=== PATIENT | male | born 1945 | race Caucasian/White ===

== ENCOUNTER → 2016-07-02 | Outpatient (CLI) | payer OTHER ==
[~2016-07-02] MED LIST: /ADVA50050; /AUGM875TA; /IPRA3SP; /MOXI40TA; /TIOT18INH; /WARF5TA OR; ACET-654 PO; ALBU17IN2; ALBU83IN INH; AMBI10TA OR; AMIT25TA PO; AMLO10TA; AMLO10TA OR; AMLO10TA2 PO; AMMO12LO TOP; ASPI1TAB24 PO; ATEN25TA; ATEN50TA2; ATEN50TA2 PO; ATOR40TA PO; ATROVENT0.02%; BABY81CH; BACL10TA2 PO; BUME2TAB OR; BUPR75TA5 PO; COMBAER6 INH; COUM2.5T11 PO; DILT180C7 OR; DILT300C2; DILT300C26 PO; DIOV160T5; DIOV160T5 OR; FEBU40TA PO; FINA5TAB2 PO; FLUO20CA8 PO; GABA600T PO; GEMF600T; GEMF600T OR; GLUC500T; GLUC850T OR; GLYB125TA PO; GUAIPOW; HYDR1TAB97 PO; KLOR8TAB OR; LIDO1OIN2 TOP; LISI40TA; LISI40TA OR; MELOPOW; MELOPOW OR; METF1000 PO; MSIR30TA PO; OMEP20CA3 PO; OMEP20TA7 OR; OXYB15TA PO; OXYC20TA2 PO; PLAV75TA2 OR; PRED10TA2; PRED20TA; PRED5TAB; RANI150T PO; REFR1DRO6 OU; SALS500T PO; SERT-141 PO; SERT50TA2; SERT50TA2 OR; SYMB16INH INH; TAMS0.4C2 PO; TEMA15CA2 PO; TRAM50TA2 PO; TRAZ50TA4 PO; TYLENOL #3; VALS1TAB46 PO; VICO5TAB; VICO5TAB OR; VITMTA PO; WARF10TA OR; WARF1TAB OR; ZOLO50TA; ZOLP10TA2 PO; [UNRECOGNIZED DRUG - OTHER]; [UNRECOGNIZED DRUG - OTHER]; [UNRECOGNIZED DRUG - OTHER] INH; [UNRECOGNIZED DRUG - OTHER] OU
[2016-07-02 10:19] LABS: INR 1.53
== END ==
LOC: M LAB 09:14
PROVIDERS: ATTEND Pain Medicine Interventional Pain Medicine
DX: M48.06 Spinal stenosis, lumbar region (principal); M51.27 Other intervertebral disc displacement, lumbosacral region; M51.26 Other intervertebral disc displacement, lumbar region; M50.221 Other cervical disc displacement at C4-C5 level; M50.222 Other cervical disc displacement at C5-C6 level; M50.223 Other cervical disc displacement at C6-C7 level; M54.12 Radiculopathy, cervical region; M54.16 Radiculopathy, lumbar region; M79.609 Pain in unspecified limb; M47.817 Spondylosis without myelopathy or radiculopathy, lumbosacral region; M96.1 Postlaminectomy syndrome, not elsewhere classified

== ENCOUNTER → 2016-07-04 | Outpatient (CLI) | payer OTHER ==
[2016-07-04 11:52] LABS: INR 1.48
== END ==
LOC: M LAB 10:56
PROVIDERS: ATTEND Pain Medicine Interventional Pain Medicine
DX: M48.06 Spinal stenosis, lumbar region (principal); M51.27 Other intervertebral disc displacement, lumbosacral region; M51.26 Other intervertebral disc displacement, lumbar region; M50.221 Other cervical disc displacement at C4-C5 level; M50.222 Other cervical disc displacement at C5-C6 level; M50.223 Other cervical disc displacement at C6-C7 level; M50.321 Other cervical disc degeneration at C4-C5 level; M50.322 Other cervical disc degeneration at C5-C6 level; M50.323 Other cervical disc degeneration at C6-C7 level; M54.12 Radiculopathy, cervical region; M54.16 Radiculopathy, lumbar region; M79.609 Pain in unspecified limb; M47.817 Spondylosis without myelopathy or radiculopathy, lumbosacral region; M96.1 Postlaminectomy syndrome, not elsewhere classified

== ENCOUNTER 2017-02-20 15:29 | Emergency (ER) | payer OTHER ==
[~2017-02-20] VITALS: Ht 172.7 cm; Wt 118.2 kg
[~2017-02-20 15:29] MED LIST changes: -ACET-654 PO; +ACET1TAB17 PO; +ASPI-161 PO; -ASPI1TAB24 PO; -ATOR40TA PO; +ATOR40TA75 PO; -COUM2.5T11 PO; +COUM2.5T17 PO; -DILT300C26 PO; +DILT300C46 PO; +HYDR-3713 PO; -HYDR1TAB97 PO; -METF1000 PO; +METF10004 PO; -SALS500T PO; -SERT-141 PO; +SERT50TA PO; +TRAZ50TA11 PO; -TRAZ50TA4 PO; +[UNRECOGNIZED DRUG - CODE] PO
[2017-02-20 16:29] LABS: ALBUMIN 1.8 GM/DL (3.2-5.2); ALBUMIN/GLOBULIN RATIO 0.49 (1.00-1.93); ALKALINE PHOSPHATASE 134 U/L (45-117); ALT/SGPT 20 U/L (12-78); ANION GAP 8 MEQ/L (8-16); AST/SGOT 25 U/L (15-37); BILIRUBIN,DIRECT < 0.1 MG/DL (0.0-0.2); BILIRUBIN,TOTAL 0.2 MG/DL (0.2-1.0); BLOOD UREA NITROGEN 30 MG/DL (7-18); CALCIUM LEVEL 7.8 MG/DL (8.8-10.2); CARBON DIOXIDE LEVEL 24 MEQ/L (21-32); CHLORIDE LEVEL 111 MEQ/L (98-107); CREATININE FOR GFR 1.37 MG/DL (0.70-1.30); FREE T4 0.84 NG/DL (0.76-1.46); GLOMERULAR FILTRATION RATE 54.5 (>42); GLUCOSE, FASTING 99 MG/DL (83-110); POTASSIUM SERUM 4.9 MEQ/L (3.5-5.1); SODIUM LEVEL 143 MEQ/L (136-145); TOTAL PROTEIN 5.5 GM/DL (6.4-8.2)
[2017-02-20 16:37] LABS: ABG BASE EXCESS -2.6 (-2.0-2.0); ABG HCO3 22.4 MEQ/L (22.0-26.0); ABG PARTIAL PRESSURE CO2 39.3 mmHg (35.0-45.0); ABG STANDARD HCO3 22.2 MEQ/L (22.0-26.0); ABG TOTAL CO2 23.6 MEQ/L (23.0-31.0); ABG pH (ARTERIAL) 7.374 UNITS (7.350-7.450)
[2017-02-20 16:46] LABS: ADD MANUAL DIFFER YES; MEAN CORPUSCULAR HEMOGLOBIN 30.4 pg (27.0-33.0); MEAN CORPUSCULAR HGB CONC 30.9 g/dl (32.0-36.5); MEAN CORPUSCULAR VOLUME 98.1 fl (80.0-96.0); PLATELET COUNT, AUTOMATED 407 k/mm3 (150-450); RED CELL DISTRIBUTION WIDTH 14.9 % (11.5-14.5); WHITE BLOOD COUNT 12.1 K/mm3 (4.0-10.0)
--- NOTE | 2017-02-20 16:49 | REP ---
Clinical: Chest pain. Technique: PA and lateral. Comparison: 12/27/2015. Findings: Stable cardiomegaly and diffuse chronic interstitial changes are again noted. Subtle superimposed atelectasis cannot be excluded. No focal consolidation, effusion, or pneumothorax. Skeletal structures demonstrate age-related osteopenia and degenerative changes. Impression: Chronic stable changes. Cannot exclude trace superimposed atelectasis. Signed by Kemar Mirza MD 02/20/2017 04:41 P
[2017-02-20 17:03] LABS: INR 2.08
--- NOTE | 2017-02-20 17:27 | REP ---
Clinical: Pain. Status post right knee replacement . Technique: Wong scale and color Doppler evaluation using linear high frequency transducer. Findings: Ultrasound examination of the right and left lower extremity deep venous structures from the common femoral vein to the popliteal vein demonstrates diffuse subcutaneous edema with normal compressibility, flow and wave patterns in response to respiration and augmentation. There is no evidence for deep venous thrombosis. Incidental note is made of right inguinal lymph nodes measuring up to 4 cm as well as 5.3 x 0.8 x 3.2 cm right Vines's cyst. Impression: No evidence for deep venous thrombosis. Diffuse bilateral subcutaneous edema. Prominent right groin lymph nodes. Right Vines's cyst. Signed by Kemar Mirza MD 02/20/2017 05:19 P
[2017-02-20 18:02] LABS: ANISOCYTOSIS 1+; EOSINOPHILS 4 % (0-5); HYPOCHROMASIA 1+; TOXIC VACUOLATION 1+
[2017-02-20] MEDS ORDERED: NORCO, ANEXSIA 5/325MG TABLET (HYDROcodone/ACETAMINOPHEN) PO ONE (19:00)
[2017-02-20 20:48] VITALS: BP 119/58
--- NOTE | 2017-02-21 09:48 | ECGEPIP ---
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 Isolated PVC. Low voltages with slow precordial R-wave progression; body habitus versus pulmonary disease. Rule out prior septal injury. Nonspecific ST/T-wave abnormalities. Atrial fibrillation, new from last tracing 05/15/14. Electronically Signed On 02-21-2017 9:48:06 EDT by Dimitris Vernon
== END 2017-02-20 20:59 | disposition short-term general hospital (02) ==
LOC: M ED 15:29
DX: R60.0 Localized edema (principal); L03.121 Acute lymphangitis of right axilla; M71.21 Synovial cyst of popliteal space [Baker], right knee; L76.82 Other postprocedural complications of skin and subcutaneous tissue; Z96.651 Presence of right artificial knee joint; R94.31 Abnormal electrocardiogram [ECG] [EKG]; Z79.82 Long term (current) use of aspirin; Z79.84 Long term (current) use of oral hypoglycemic drugs; Z79.899 Other long term (current) drug therapy; Z79.01 Long term (current) use of anticoagulants; Z88.5 Allergy status to narcotic agent; Z88.8 Allergy status to other drugs, medicaments and biological substances; I25.10 Atherosclerotic heart disease of native coronary artery without angina pectoris; I25.2 Old myocardial infarction; I48.91 Unspecified atrial fibrillation; N40.0 Benign prostatic hyperplasia without lower urinary tract symptoms; K21.9 Gastro-esophageal reflux disease without esophagitis; E11.9 Type 2 diabetes mellitus without complications; I10 Essential (primary) hypertension; I42.9 Cardiomyopathy, unspecified

== ENCOUNTER 2017-07-27 16:18 | Emergency (ER) | payer OTHER | END 2017-07-27 18:31 | disposition left against medical advice (07) | LOC: M ED 16:18 | DX: Z51.89 Encounter for other specified aftercare (principal); Z53.21 Procedure and treatment not carried out due to patient leaving prior to being seen by health care provider ==

== ENCOUNTER → 2017-10-19 | Outpatient (RCR) | payer OTHER | LOC: M PT 08:33 | DX: I89.0 Lymphedema, not elsewhere classified (principal) | CPT/HCPCS: 97530 ==

== ENCOUNTER 2017-11-03 05:49 | Inpatient (IN) | payer MEDICARE, OTHER ==
[2017-11-03] MEDS ORDERED: NITROGLYCERIN IN D5W 25MG/250ML (100MCG/ML) As Ordered (06:02)
[2017-11-03 06:13] LABS: BASO % 0.1 % (0.0-1.0); EOS # 0.2 10^3/uL (0.0-0.50); HEMATOCRIT 33.3 % (42.0-52.0); HEMOGLOBIN 11.1 g/dl (13.5-17.5); IMMATURE GRANULOCYTE % 0.7 % (0-3.0); LYMPH # 1.5 10^3/uL (1.5-4.5); LYMPH % 8.5 % (24.0-44.0); MEAN CORPUSCULAR HEMOGLOBIN 29.1 pg (27.0-33.0); MEAN CORPUSCULAR HGB CONC 33.3 g/dl (32.0-36.5); MEAN CORPUSCULAR VOLUME 87.2 fl (80.0-96.0); MONO # 1.3 10^3/uL (0.0-0.8); MONO % 7.6 % (0.0-5.0); NEUTROPHILS # 14.6 10^3/uL (1.8-7.7); NEUTROPHILS % 82.1 % (36.0-66.0); PLATELET COUNT, AUTOMATED 227 10^3/uL (150-450); RED BLOOD COUNT 3.82 10^6/uL (4.30-6.10); RED CELL DISTRIBUTION WIDTH 15.7 % (11.5-14.5); WHITE BLOOD COUNT 17.7 10^3/uL (4.0-10.0)
[2017-11-03] MEDS ORDERED: hydrALAZINE INJ 20 MG/ML VIAL As Ordered ×2 (06:14→06:46)
[2017-11-03] MEDS: FUROSEMIDE 100 MG/10 ML VIAL (J1940) IV (06:15)
[2017-11-03] MEDS: NITROGLYCERIN/D5W 100MCG/ML 25 MG in APPROPRIATE DILUENT 1 EA IV (06:15)
[2017-11-03] MEDS: hydrALAZINE INJ 20 MG/ML VIAL IV ×6 (06:20→23:51)
[2017-11-03 06:25] LABS: INR 2.98; PROTHROMBIN TIME 32.3 SECONDS (12.4-14.5)
[2017-11-03] MEDS: METOPROLOL 5 MG/5 ML VIAL IV ×2 (06:25→06:30)
[2017-11-03 06:26] LABS: PARTIAL THROMBOPLASTIN TIME 40.5 SECONDS (26.8-37.9)
[2017-11-03] MEDS ORDERED: METOPROLOL 5 MG/5 ML VIAL As Ordered (06:30)
[2017-11-03 06:40] LABS: ANION GAP 5 MEQ/L (8-16); BLOOD UREA NITROGEN 54 MG/DL (7-18); CALCIUM LEVEL 7.8 MG/DL (8.8-10.2); CARBON DIOXIDE LEVEL 34 MEQ/L (21-32); CHLORIDE LEVEL 108 MEQ/L (98-107); CK-MB VALUE MASS 3.7 NG/ML (<3.6); CPK CREATINE PHOSPHOKINASE 146 U/L (39-308); CREATININE FOR GFR 0.98 MG/DL (0.70-1.30); GLOMERULAR FILTRATION RATE > 60.0 (>42); GLUCOSE, FASTING 126 MG/DL (70-100); MB/CK RELATIVE INDEX 2.53 (< OR =4); POTASSIUM SERUM 3.5 MEQ/L (3.5-5.1); SODIUM LEVEL 147 MEQ/L (136-145); TROPONIN I 0.07 NG/ML (< 0.10)
[2017-11-03] MEDS: LORazepam 2 MG/ML VIAL (J2060) IV (07:14)
[2017-11-03] MEDS ORDERED: ISOVUE-370 76% 100ML VIAL (Q9967) As Ordered (07:35)
[2017-11-03 07:51] LABS: ALKALINE PHOSPHATASE 69 U/L (45-117); AST/SGOT 32 U/L (7-37); BILIRUBIN,TOTAL 0.7 MG/DL (0.2-1.0); NT-PRO BNP 18282 PG/ML (<125)
[2017-11-03 07:59] LABS: ABG BASE EXCESS 8.5 (-2.0-2.0); ABG HCO3 30.1 MEQ/L (22.0-26.0); ABG O2 SATURATION 98.4 % (95.0-99.0); ABG PARTIAL PRESSURE CO2 31.5 mmHg (35.0-45.0); ABG STANDARD HCO3 32.3 MEQ/L (22.0-26.0); ABG TOTAL CO2 31.1 MEQ/L (23.0-31.0); ABG pH (ARTERIAL) 7.598 UNITS (7.350-7.450)
[2017-11-03] MEDS ORDERED: MOXIFLOXACIN HCL 400 MG in APPROPRIATE DILUENT 1 EA IV (08:00)
[2017-11-03 08:04] LABS: ALT/SGPT 33 U/L (12-78); BILIRUBIN,DIRECT 0.2 MG/DL (0.0-0.2)
[2017-11-03 08:07] LABS: ALBUMIN/GLOBULIN RATIO 0.71 (1.00-1.93); TOTAL PROTEIN 4.8 GM/DL (6.4-8.2)
[2017-11-03] MEDS: cefTRIAXone SOD 1 GM in D5W MINI-BAG PLUS 50 ML IV (08:14)
[2017-11-03] MEDS ORDERED: MORPHINE 2 MG/ML 1ML SYRINGE (J2270) As Ordered (08:15)
[2017-11-03] MEDS: MORPHINE 2 MG/ML 1ML SYRINGE (J2270) IV (08:30)
[2017-11-03 08:31] LABS: LACTIC ACID SEPSIS PROTOCOL 1.5 MMOL/L (0.4-2.0)
[2017-11-03] MEDS: AZITHROMYCIN INJ 500 MG, VIAL MATE ADAPTER 1 EACH in D5W 250 ML IV (08:47)
[2017-11-03] MEDS ORDERED: GLUCAGON FOR INJ 1 MG VIAL (J1610) SC (09:30)
[2017-11-03] MEDS ORDERED: GLUCOSE 4 GM CHEW TABLET PO (09:30)
[2017-11-03] MEDS ORDERED: DEXTROSE 50% 50 ML SYRINGE IV (09:30)
[2017-11-03] MEDS ORDERED: IPRATROPIUM 0.5MG/ALBUTEROL 2.5MG INH SOL UD 3ML (DUONEB)(J7620) NEB (09:45)
[2017-11-03 09:49] LABS: APPEARANCE, URINE CLEAR (CLEAR); BACTERIA, URINE AUTO 1+ (NEGATIVE); BILIRUBIN, URINE AUTO NEGATIVE (NEGATIVE); BLOOD, URINE BLOOD 2+ (NEGATIVE); COLOR, URINE STRAW (YELLOW); GLUCOSE, URINE (UA) AUTO NEGATIVE (NEGATIVE); KETONE, URINE AUTO NEGATIVE (NEGATIVE); LEUKOCYTE ESTERASE, URINE AUTO NEGATIVE (NEGATIVE); MUCUS, URINE SMALL (NEGATIVE); NITRITE, URINE AUTO NEGATIVE (NEGATIVE); PROTEIN, URINE AUTO 3+ mg/dL (NEGATIVE); RBC, URINE AUTO 25 /HPF (0-3); SPECIFIC GRAVITY URINE AUTO 1.013 (1.002-1.035); SQUAMOUS EPITHELIAL CELL UR AU 0 /HPF (0-6); UROBILINOGEN, URINE AUTO 0.2 mg/dL (0.0-2.0); WBC, URINE AUTO 2 /HPF (0-3)
[2017-11-03 10:15] LABS: ERYTHROCYTE SEDIMENTATION RATE 46 mm/hr (0-20)
[2017-11-03 10:37] LABS: C REACTIVE PROTEIN QUANTITATIV 1.84 MG/DL (0.00-0.30); CHOLESTEROL LEVEL 255 MG/DL (<200); CPK CREATINE PHOSPHOKINASE 138 U/L (39-308); IRON (FE) 27 UG/DL (65-175); PERCENT SATURATION 11.2 % (19.7-50.0); TOTAL IRON BINDING CAPACITY 242 UG/DL (250-450); TRIGLYCERIDES LEVEL 281 MG/DL (<150); TROPONIN I 0.07 NG/ML (< 0.10)
[2017-11-03 10:38] LABS: CHOLESTEROL RISK RATIO 1.902 (<5); CK-MB VALUE MASS 3.4 NG/ML (<3.6); HDL CHOLESTEROL 134 MG/DL (>40); LDL CHOLESTEROL 64.8 MG/DL (<100); MB/CK RELATIVE INDEX 2.46 (< OR =4); NON-HDL-C 121 MG/DL
[2017-11-03 10:52] LABS: ESTIMATED AVERAGE GLUCOSE 140 MG/DL (60-110); HEMOGLOBIN A1c 6.5 %
[2017-11-03] MEDS: FUROSEMIDE 40 MG/4 ML VIAL (J1940) IV ×4 (11:21→23:49)
[2017-11-03] MEDS ORDERED: HumaLOG INSULIN (NovoLOG) PER UNIT SC (12:00)
[2017-11-03 12:03] LABS: BEDSIDE GLUCOSE 125 MG/DL (83-110)
[2017-11-03] MEDS: CYANOCOBALAMIN 500 MCG TAB PO ×2 (12:06→18:57)
[2017-11-03] MEDS: VALSARTAN 80 MG TAB (DIOVAN) PO (12:07)
[2017-11-03] MEDS: MORPHINE 4 MG/ML 1ML VIAL/SYRINGE (J2270) IV (12:41)
[2017-11-03 12:47] LABS: CK-MB VALUE MASS 2.9 NG/ML (<3.6); CPK CREATINE PHOSPHOKINASE 167 U/L (39-308); MB/CK RELATIVE INDEX 1.73 (< OR =4); TROPONIN I 0.08 NG/ML (< 0.10)
[2017-11-03] MEDS: POTASSIUM CHLORIDE 10 MEQ SR TABLET PO (13:50)
[2017-11-03] MEDS: HumaLOG INSULIN (NovoLOG) PER UNIT SC ×3 (13:51→20:47)
[2017-11-03] MEDS: oxyCODONE 5MG TAB PO (14:56)
[2017-11-03 17:43] LABS: BEDSIDE GLUCOSE 104 MG/DL (83-110)
[2017-11-03 18:31] LABS: ANION GAP 8 MEQ/L (8-16); BLOOD UREA NITROGEN 50 MG/DL (7-18); CALCIUM LEVEL 7.5 MG/DL (8.8-10.2); CARBON DIOXIDE LEVEL 31 MEQ/L (21-32); CHLORIDE LEVEL 103 MEQ/L (98-107); CPK CREATINE PHOSPHOKINASE 162 U/L (39-308); CREATININE FOR GFR 0.98 MG/DL (0.70-1.30); GLOMERULAR FILTRATION RATE > 60.0 (>42); GLUCOSE, FASTING 107 MG/DL (70-100); POTASSIUM SERUM 3.5 MEQ/L (3.5-5.1); SODIUM LEVEL 142 MEQ/L (136-145); TROPONIN I 0.08 NG/ML (< 0.10)
[2017-11-03 18:32] LABS: CK-MB VALUE MASS 2.9 NG/ML (<3.6); MB/CK RELATIVE INDEX 1.79 (< OR =4)
[2017-11-03] MEDS: WARFARIN SOD 2.5 MG TAB PO (18:57)
[2017-11-03 20:38] LABS: BEDSIDE GLUCOSE 112 MG/DL (83-110)
[2017-11-03] MEDS: MYCOPHENOLATE MOFETIL 250 MG CAP (J7517) PO (20:45)
[2017-11-03] MEDS: traZODone 50 MG TAB PO (20:45)
[2017-11-03] MEDS: oxyCODONE 10 MG CR TAB PO (20:46)
[2017-11-03] MEDS: OMEPRAZOLE 20 MG CAP PO (20:46)
[2017-11-03] MEDS: FAMOTIDINE 20 MG TAB PO (20:48)
[2017-11-04] MEDS: ALPRAZolam 0.5 MG TAB PO ×2 (00:02→11:33)
[2017-11-04] MEDS: oxyCODONE 5MG TAB PO ×4 (00:03→16:16)
[2017-11-04 00:51] LABS: CK-MB VALUE MASS 2.9 NG/ML (<3.6); CPK CREATINE PHOSPHOKINASE 135 U/L (39-308); MB/CK RELATIVE INDEX 2.14 (< OR =4); TROPONIN I 0.11 NG/ML (< 0.10)
[2017-11-04] MEDS: FUROSEMIDE 40 MG/4 ML VIAL (J1940) IV ×4 (02:00→17:33)
[2017-11-04] MEDS: hydrALAZINE INJ 20 MG/ML VIAL IV ×2 (02:37→06:25)
[2017-11-04 06:04] LABS: HEMATOCRIT 29.6 % (42.0-52.0); HEMOGLOBIN 9.9 g/dl (13.5-17.5); MEAN CORPUSCULAR HGB CONC 33.4 g/dl (32.0-36.5); MEAN CORPUSCULAR VOLUME 86.8 fl (80.0-96.0); PLATELET COUNT, AUTOMATED 203 10^3/uL (150-450); RED BLOOD COUNT 3.41 10^6/uL (4.30-6.10); RED CELL DISTRIBUTION WIDTH 15.8 % (11.5-14.5); WHITE BLOOD COUNT 12.5 10^3/uL (4.0-10.0)
[2017-11-04 06:14] LABS: PROTHROMBIN TIME 23.4 SECONDS (12.4-14.5)
[2017-11-04 06:33] LABS: ANION GAP 7 MEQ/L (8-16); BLOOD UREA NITROGEN 48 MG/DL (7-18); CALCIUM LEVEL 7.6 MG/DL (8.8-10.2); CARBON DIOXIDE LEVEL 30 MEQ/L (21-32); CHLORIDE LEVEL 104 MEQ/L (98-107); CREATININE FOR GFR 1.18 MG/DL (0.70-1.30); GLOMERULAR FILTRATION RATE > 60.0 (>42); GLUCOSE, FASTING 93 MG/DL (70-100); POTASSIUM SERUM 3.4 MEQ/L (3.5-5.1); SODIUM LEVEL 141 MEQ/L (136-145)
[2017-11-04] MEDS: POTASSIUM CHLORIDE 10 MEQ SR TABLET PO (06:50)
[2017-11-04 07:01] LABS: MAGNESIUM LEVEL 2.1 MG/DL (1.8-2.4)
[2017-11-04] MEDS: HumaLOG INSULIN (NovoLOG) PER UNIT SC ×4 (07:30→20:34)
[2017-11-04] MEDS: MYCOPHENOLATE MOFETIL 250 MG CAP (J7517) PO (08:11)
[2017-11-04] MEDS: oxyCODONE 10 MG CR TAB PO ×2 (08:12→20:28)
[2017-11-04] MEDS: OMEPRAZOLE 20 MG CAP PO ×2 (08:12→20:28)
[2017-11-04] MEDS: ASPIRIN 81 MG ENTERIC TAB PO (08:13)
[2017-11-04] MEDS: ATORVASTATIN 20 MG TAB PO (08:13)
[2017-11-04] MEDS: SPIRONOLACTONE 25 MG TAB PO (08:13)
[2017-11-04] MEDS: TAMSULOSIN 0.4 MG CAP PO (08:13)
[2017-11-04] MEDS: LACTOBACILLUS ACIDOPHILUS CAP (BACID) PO (08:13)
[2017-11-04] MEDS: VALSARTAN 80 MG TAB (DIOVAN) PO (08:14)
[2017-11-04] MEDS: CYANOCOBALAMIN 500 MCG TAB PO ×3 (08:14→17:34)
[2017-11-04] MEDS: FINASTERIDE 5 MG TAB PO (08:14)
[2017-11-04] MEDS: FEBUXOSTAT 40 MG TABLET (ULORIC) PO (08:14)
[2017-11-04] MEDS ORDERED: VALSARTAN 80 MG TAB (DIOVAN) PO (09:00)
[2017-11-04] MEDS ORDERED: LACTIC ACID 12% LOTION 225 GM BTL TOP (09:15)
[2017-11-04] MEDS ORDERED: zolPIDEM TARTRATE 5 MG TAB PO (09:15)
[2017-11-04] MEDS ORDERED: POLYVINYL ALCOHOL OPHTH SOLN 15 ML(LIQUITEARS) OU (09:15)
[2017-11-04] MEDS ORDERED: PILL CRUSHER/CUTTER 1 EACH XX (09:30)
[2017-11-04] MEDS ORDERED: cefTRIAXone SOD 2 GM in D5W MINI-BAG PLUS 50 ML IV (10:00)
[2017-11-04] MEDS ORDERED: AZITHROMYCIN INJ 500 MG, VIAL MATE ADAPTER 1 EACH in D5W 250 ML IV (10:00)
[2017-11-04] MEDS: GABAPENTIN 300 MG CAP PO ×3 (10:14→20:27)
[2017-11-04] MEDS: MULTIVITAMINS/MINERALS THERAP 1 TAB PO ×2 (10:14→20:27)
[2017-11-04] MEDS: VANCOMYCIN HCL 1,000 MG, VIAL MATE ADAPTER 1 EACH in D5W 250 ML IV ×3 (10:15→21:30)
[2017-11-04] MEDS: FLUoxetine 20 MG CAP PO (11:20)
[2017-11-04 12:17] LABS: BEDSIDE GLUCOSE 151 MG/DL (83-110)
[2017-11-04] MEDS: WARFARIN SOD 4 MG TAB PO (16:16)
[2017-11-04 17:33] LABS: BEDSIDE GLUCOSE 128 MG/DL (83-110)
[2017-11-04 18:41] LABS: ANION GAP 7 MEQ/L (8-16); BLOOD UREA NITROGEN 61 MG/DL (7-18); CALCIUM LEVEL 7.3 MG/DL (8.8-10.2); CARBON DIOXIDE LEVEL 32 MEQ/L (21-32); CHLORIDE LEVEL 103 MEQ/L (98-107); GLOMERULAR FILTRATION RATE 37.4 (>42); GLUCOSE, FASTING 104 MG/DL (70-100); POTASSIUM SERUM 3.5 MEQ/L (3.5-5.1); SODIUM LEVEL 142 MEQ/L (136-145)
[2017-11-04] MEDS: traZODone 50 MG TAB PO (20:27)
[2017-11-04] MEDS: FAMOTIDINE 20 MG TAB PO (20:28)
[2017-11-04 20:52] LABS: BEDSIDE GLUCOSE 128 MG/DL (83-110)
[2017-11-05] MEDS: FUROSEMIDE 40 MG/4 ML VIAL (J1940) IV ×3 (05:43→08:01)
[2017-11-05] MEDS: SLF 3 ML SYR IV ×3 (05:46→20:52)
[2017-11-05 05:56] LABS: HEMATOCRIT 27.9 % (42.0-52.0); HEMOGLOBIN 8.9 g/dl (13.5-17.5); MEAN CORPUSCULAR HEMOGLOBIN 28.4 pg (27.0-33.0); MEAN CORPUSCULAR HGB CONC 31.9 g/dl (32.0-36.5); MEAN CORPUSCULAR VOLUME 89.1 fl (80.0-96.0); PLATELET COUNT, AUTOMATED 153 10^3/uL (150-450); RED BLOOD COUNT 3.13 10^6/uL (4.30-6.10); RED CELL DISTRIBUTION WIDTH 16.3 % (11.5-14.5)
[2017-11-05 06:08] LABS: INR 2.24; PROTHROMBIN TIME 25.6 SECONDS (12.4-14.5)
[2017-11-05 06:15] LABS: ANION GAP 5 MEQ/L (8-16); BLOOD UREA NITROGEN 66 MG/DL (7-18); CARBON DIOXIDE LEVEL 33 MEQ/L (21-32); CHLORIDE LEVEL 103 MEQ/L (98-107); CREATININE FOR GFR 2.21 MG/DL (0.70-1.30); GLOMERULAR FILTRATION RATE 31.4 (>42); GLUCOSE, FASTING 113 MG/DL (70-100); POTASSIUM SERUM 3.4 MEQ/L (3.5-5.1); SODIUM LEVEL 141 MEQ/L (136-145)
[2017-11-05] MEDS: HumaLOG INSULIN (NovoLOG) PER UNIT SC ×4 (07:30→20:46)
[2017-11-05] MEDS: SPIRONOLACTONE 25 MG TAB PO (07:57)
[2017-11-05] MEDS: OMEPRAZOLE 20 MG CAP PO ×2 (08:19→20:50)
[2017-11-05] MEDS: ATORVASTATIN 20 MG TAB PO (08:19)
[2017-11-05] MEDS: LACTOBACILLUS ACIDOPHILUS CAP (BACID) PO (08:20)
[2017-11-05] MEDS: CYANOCOBALAMIN 500 MCG TAB PO ×3 (08:20→17:30)
[2017-11-05] MEDS: TAMSULOSIN 0.4 MG CAP PO (08:20)
[2017-11-05] MEDS: FEBUXOSTAT 40 MG TABLET (ULORIC) PO (08:20)
[2017-11-05] MEDS: ASPIRIN 81 MG ENTERIC TAB PO (08:20)
[2017-11-05] MEDS: FLUoxetine 20 MG CAP PO (08:20)
[2017-11-05] MEDS: GABAPENTIN 300 MG CAP PO ×3 (08:20→20:51)
[2017-11-05] MEDS: FINASTERIDE 5 MG TAB PO (08:20)
[2017-11-05] MEDS: MULTIVITAMINS/MINERALS THERAP 1 TAB PO ×2 (08:20→20:51)
[2017-11-05] MEDS: oxyCODONE 10 MG CR TAB PO ×2 (08:21→20:51)
[2017-11-05] MEDS: POTASSIUM CHLORIDE 10 MEQ SR TABLET PO ×3 (10:33→17:29)
[2017-11-05] MEDS: oxyCODONE 5MG TAB PO ×2 (10:33→15:10)
[2017-11-05] MEDS: ALPRAZolam 0.5 MG TAB PO (10:33)
[2017-11-05] MEDS: VANCOMYCIN HCL 1,000 MG, VIAL MATE ADAPTER 1 EACH in D5W 250 ML IV (13:49)
[2017-11-05] MEDS: WARFARIN SOD 4 MG TAB PO (17:30)
[2017-11-05 18:49] LABS: ANION GAP 6 MEQ/L (8-16); BLOOD UREA NITROGEN 67 MG/DL (7-18); CALCIUM LEVEL 6.8 MG/DL (8.8-10.2); CARBON DIOXIDE LEVEL 31 MEQ/L (21-32); CHLORIDE LEVEL 99 MEQ/L (98-107); CREATININE FOR GFR 2.16 MG/DL (0.70-1.30); GLOMERULAR FILTRATION RATE 32.2 (>42); GLUCOSE, FASTING 97 MG/DL (70-100); POTASSIUM SERUM 4.2 MEQ/L (3.5-5.1); SODIUM LEVEL 136 MEQ/L (136-145)
[2017-11-05] MEDS: FAMOTIDINE 20 MG TAB PO (20:51)
[2017-11-05] MEDS: traZODone 50 MG TAB PO (20:51)
[2017-11-06] MEDS: oxyCODONE 5MG TAB PO ×3 (00:48→18:11)
[2017-11-06] MEDS: SLF 3 ML SYR IV ×3 (05:29→20:53)
[2017-11-06 06:12] LABS: ANION GAP 8 MEQ/L (8-16); BLOOD UREA NITROGEN 69 MG/DL (7-18); CALCIUM LEVEL 7.1 MG/DL (8.8-10.2); CARBON DIOXIDE LEVEL 26 MEQ/L (21-32); CHLORIDE LEVEL 100 MEQ/L (98-107); CREATININE FOR GFR 2.44 MG/DL (0.70-1.30); GLUCOSE, FASTING 97 MG/DL (70-100); POTASSIUM SERUM 4.5 MEQ/L (3.5-5.1); SODIUM LEVEL 134 MEQ/L (136-145)
[2017-11-06] MEDS: HumaLOG INSULIN (NovoLOG) PER UNIT SC ×4 (06:44→20:57)
[2017-11-06 07:37] LABS: HEMATOCRIT 26.9 % (42.0-52.0); HEMOGLOBIN 8.9 g/dl (13.5-17.5); MEAN CORPUSCULAR HEMOGLOBIN 29.9 pg (27.0-33.0); MEAN CORPUSCULAR HGB CONC 33.1 g/dl (32.0-36.5); MEAN CORPUSCULAR VOLUME 90.3 fl (80.0-96.0); PLATELET COUNT, AUTOMATED 127 10^3/uL (150-450); RED BLOOD COUNT 2.98 10^6/uL (4.30-6.10); RED CELL DISTRIBUTION WIDTH 15.9 % (11.5-14.5); WHITE BLOOD COUNT 8.2 10^3/uL (4.0-10.0)
[2017-11-06 07:57] LABS: POS COUNT POS FLAG
[2017-11-06] MEDS: MULTIVITAMINS/MINERALS THERAP 1 TAB PO ×2 (08:45→20:52)
[2017-11-06] MEDS: CYANOCOBALAMIN 500 MCG TAB PO ×3 (08:45→18:10)
[2017-11-06] MEDS: ATORVASTATIN 20 MG TAB PO (08:45)
[2017-11-06] MEDS: LACTOBACILLUS ACIDOPHILUS CAP (BACID) PO (08:45)
[2017-11-06] MEDS: FLUoxetine 20 MG CAP PO (08:45)
[2017-11-06] MEDS: GABAPENTIN 300 MG CAP PO ×3 (08:45→20:52)
[2017-11-06] MEDS: oxyCODONE 10 MG CR TAB PO ×2 (08:46→20:52)
[2017-11-06] MEDS: VANCOMYCIN ORAL SOL 250MG/5ML ORAL SYRINGE PO ×3 (08:46→18:11)
[2017-11-06] MEDS: OMEPRAZOLE 20 MG CAP PO ×2 (08:46→20:52)
[2017-11-06] MEDS: FINASTERIDE 5 MG TAB PO (08:46)
[2017-11-06] MEDS: TAMSULOSIN 0.4 MG CAP PO (08:46)
[2017-11-06] MEDS: ASPIRIN 81 MG ENTERIC TAB PO (08:46)
[2017-11-06] MEDS: FEBUXOSTAT 40 MG TABLET (ULORIC) PO (08:46)
[2017-11-06 12:12] LABS: INR 2.11; PROTHROMBIN TIME 24.4 SECONDS (12.4-14.5)
[2017-11-06] MEDS: WARFARIN SOD 4 MG TAB PO (16:49)
[2017-11-06 18:38] LABS: ANION GAP 7 MEQ/L (8-16); BLOOD UREA NITROGEN 73 MG/DL (7-18); CALCIUM LEVEL 7.3 MG/DL (8.8-10.2); CARBON DIOXIDE LEVEL 30 MEQ/L (21-32); CHLORIDE LEVEL 98 MEQ/L (98-107); GLUCOSE, FASTING 118 MG/DL (70-100); POTASSIUM SERUM 4.4 MEQ/L (3.5-5.1); SODIUM LEVEL 135 MEQ/L (136-145)
[2017-11-06] MEDS: FAMOTIDINE 20 MG TAB PO (20:52)
[2017-11-06] MEDS: traZODone 50 MG TAB PO (20:54)
[2017-11-06 21:34] LABS: BEDSIDE GLUCOSE 115 MG/DL (83-110)
[2017-11-06 21:34] LABS: BEDSIDE GLUCOSE 100 MG/DL (83-110)
[2017-11-06 21:34] LABS: BEDSIDE GLUCOSE 137 MG/DL (83-110)
[2017-11-06 21:34] LABS: BEDSIDE GLUCOSE 113 MG/DL (83-110)
[2017-11-07] MEDS: VANCOMYCIN ORAL SOL 250MG/5ML ORAL SYRINGE PO ×2 (00:26→05:00)
[2017-11-07] MEDS: oxyCODONE 5MG TAB PO ×4 (00:28→16:16)
[2017-11-07 04:04] LABS: HEMATOCRIT 26.9 % (42.0-52.0); HEMOGLOBIN 8.4 g/dl (13.5-17.5); MEAN CORPUSCULAR HEMOGLOBIN 28.7 pg (27.0-33.0); MEAN CORPUSCULAR HGB CONC 31.2 g/dl (32.0-36.5); MEAN CORPUSCULAR VOLUME 91.8 fl (80.0-96.0); PLATELET COUNT, AUTOMATED 143 10^3/uL (150-450); RED BLOOD COUNT 2.93 10^6/uL (4.30-6.10); RED CELL DISTRIBUTION WIDTH 15.4 % (11.5-14.5); WHITE BLOOD COUNT 7.4 10^3/uL (4.0-10.0)
[2017-11-07 04:22] LABS: ALBUMIN 1.8 GM/DL (3.2-5.2); ANION GAP 6 MEQ/L (8-16); BLOOD UREA NITROGEN 75 MG/DL (7-18); CALCIUM LEVEL 7.4 MG/DL (8.8-10.2); CARBON DIOXIDE LEVEL 31 MEQ/L (21-32); CHLORIDE LEVEL 98 MEQ/L (98-107); CREATININE FOR GFR 2.17 MG/DL (0.70-1.30); GLOMERULAR FILTRATION RATE 32.1 (>42); GLUCOSE, FASTING 106 MG/DL (70-100); INR 1.88; POTASSIUM SERUM 4.1 MEQ/L (3.5-5.1); PROTHROMBIN TIME 22.2 SECONDS (12.4-14.5); SODIUM LEVEL 135 MEQ/L (136-145)
[2017-11-07] MEDS: SLF 3 ML SYR IV ×3 (05:00→20:55)
[2017-11-07] MEDS: LACTOBACILLUS ACIDOPHILUS CAP (BACID) PO (08:55)
[2017-11-07] MEDS: FEBUXOSTAT 40 MG TABLET (ULORIC) PO (08:55)
[2017-11-07] MEDS: FLUoxetine 20 MG CAP PO (08:55)
[2017-11-07] MEDS: ASPIRIN 81 MG ENTERIC TAB PO (08:56)
[2017-11-07] MEDS: oxyCODONE 10 MG CR TAB PO ×2 (08:56→20:48)
[2017-11-07] MEDS: CYANOCOBALAMIN 500 MCG TAB PO ×3 (08:56→17:58)
[2017-11-07] MEDS: MULTIVITAMINS/MINERALS THERAP 1 TAB PO ×2 (08:57→20:45)
[2017-11-07] MEDS: ATORVASTATIN 20 MG TAB PO (08:57)
[2017-11-07] MEDS: FINASTERIDE 5 MG TAB PO (08:57)
[2017-11-07] MEDS: GABAPENTIN 300 MG CAP PO ×3 (08:57→20:46)
[2017-11-07] MEDS: TAMSULOSIN 0.4 MG CAP PO (08:57)
[2017-11-07] MEDS: OMEPRAZOLE 20 MG CAP PO ×2 (08:57→20:46)
[2017-11-07] MEDS: HumaLOG INSULIN (NovoLOG) PER UNIT SC ×4 (08:58→20:54)
[2017-11-07 11:46] LABS: BEDSIDE GLUCOSE 109 MG/DL (83-110)
[2017-11-07] MEDS: FUROSEMIDE 40 MG/4 ML VIAL (J1940) IV (13:55)
[2017-11-07] MEDS: WARFARIN SOD 4 MG TAB PO (16:14)
[2017-11-07 17:34] LABS: BEDSIDE GLUCOSE 124 MG/DL (83-110)
[2017-11-07 19:29] LABS: ANION GAP 7 MEQ/L (8-16); BLOOD UREA NITROGEN 71 MG/DL (7-18); CARBON DIOXIDE LEVEL 30 MEQ/L (21-32); CHLORIDE LEVEL 99 MEQ/L (98-107); CREATININE FOR GFR 1.94 MG/DL (0.70-1.30); GLOMERULAR FILTRATION RATE 36.5 (>42); GLUCOSE, FASTING 124 MG/DL (70-100); POTASSIUM SERUM 4.5 MEQ/L (3.5-5.1); SODIUM LEVEL 136 MEQ/L (136-145)
[2017-11-07 20:09] LABS: BEDSIDE GLUCOSE 121 MG/DL (83-110)
[2017-11-07] MEDS: FAMOTIDINE 20 MG TAB PO (20:45)
[2017-11-07] MEDS: traZODone 50 MG TAB PO (20:46)
[2017-11-07 21:31] LABS: MAGNESIUM LEVEL 2.6 MG/DL (1.8-2.4)
[2017-11-07 22:06] LABS: CK-MB VALUE MASS 2.3 NG/ML (<3.6); CPK CREATINE PHOSPHOKINASE 110 U/L (39-308); MB/CK RELATIVE INDEX 2.09 (< OR =4); TROPONIN I 0.03 NG/ML (< 0.10)
[2017-11-08] MEDS: oxyCODONE 5MG TAB PO ×3 (01:38→17:08)
[2017-11-08 04:39] LABS: HEMATOCRIT 23.6 % (42.0-52.0); HEMOGLOBIN 7.4 g/dl (13.5-17.5); MEAN CORPUSCULAR HEMOGLOBIN 28.5 pg (27.0-33.0); MEAN CORPUSCULAR HGB CONC 31.4 g/dl (32.0-36.5); MEAN CORPUSCULAR VOLUME 90.8 fl (80.0-96.0); PLATELET COUNT, AUTOMATED 127 10^3/uL (150-450); WHITE BLOOD COUNT 6.4 10^3/uL (4.0-10.0)
[2017-11-08 05:00] LABS: ANION GAP 6 MEQ/L (8-16); BLOOD UREA NITROGEN 70 MG/DL (7-18); CALCIUM LEVEL 7.2 MG/DL (8.8-10.2); CARBON DIOXIDE LEVEL 30 MEQ/L (21-32); CHLORIDE LEVEL 101 MEQ/L (98-107); CREATININE FOR GFR 1.88 MG/DL (0.70-1.30); GLOMERULAR FILTRATION RATE 37.8 (>42); GLUCOSE, FASTING 125 MG/DL (70-100); POTASSIUM SERUM 4.1 MEQ/L (3.5-5.1); SODIUM LEVEL 137 MEQ/L (136-145)
[2017-11-08 05:02] LABS: CK-MB VALUE MASS 2.2 NG/ML (<3.6); CPK CREATINE PHOSPHOKINASE 83 U/L (39-308); MB/CK RELATIVE INDEX 2.65 (< OR =4); TROPONIN I 0.02 NG/ML (< 0.10)
[2017-11-08 05:06] LABS: INR 1.82; PROTHROMBIN TIME 21.6 SECONDS (12.4-14.5)
[2017-11-08] MEDS: SLF 3 ML SYR IV ×3 (06:06→21:07)
[2017-11-08 06:42] LABS: FERRITIN 216 NG/ML (26-388); IRON (FE) 30 UG/DL (65-175); PERCENT SATURATION 7.5 % (19.7-50.0); TOTAL IRON BINDING CAPACITY 399 UG/DL (250-450)
[2017-11-08 06:47] LABS: RETIC HEMOGLOBIN EQUIVALENT 31.5 pg (24-36); RETICULOCYTE % 1.3 % (0.5-1.5)
[2017-11-08 06:58] LABS: REASON FOR REVIEW ANEMIA / RBC MORPH; SLIDE REVIEW Report; SOURCE PERIPHERAL SMEAR
[2017-11-08 07:18] LABS: HEMATOCRIT 25.7 % (42.0-52.0); HEMOGLOBIN 8.2 g/dl (13.5-17.5)
[2017-11-08] MEDS: LACTOBACILLUS ACIDOPHILUS CAP (BACID) PO (08:42)
[2017-11-08] MEDS: ATORVASTATIN 20 MG TAB PO (08:42)
[2017-11-08] MEDS: FINASTERIDE 5 MG TAB PO (08:42)
[2017-11-08] MEDS: OMEPRAZOLE 20 MG CAP PO ×2 (08:42→20:56)
[2017-11-08] MEDS: FEBUXOSTAT 40 MG TABLET (ULORIC) PO (08:42)
[2017-11-08] MEDS: MULTIVITAMINS/MINERALS THERAP 1 TAB PO ×2 (08:42→20:56)
[2017-11-08] MEDS: TAMSULOSIN 0.4 MG CAP PO (08:42)
[2017-11-08] MEDS: GABAPENTIN 300 MG CAP PO ×2 (08:42→20:56)
[2017-11-08] MEDS: CYANOCOBALAMIN 500 MCG TAB PO ×3 (08:43→17:07)
[2017-11-08] MEDS: oxyCODONE 10 MG CR TAB PO ×2 (08:43→21:07)
[2017-11-08] MEDS: ASPIRIN 81 MG ENTERIC TAB PO (08:43)
[2017-11-08] MEDS: FLUoxetine 20 MG CAP PO (08:43)
[2017-11-08] MEDS: HumaLOG INSULIN (NovoLOG) PER UNIT SC ×4 (08:46→20:11)
[2017-11-08 12:03] LABS: BEDSIDE GLUCOSE 106 MG/DL (83-110)
[2017-11-08] MEDS: FUROSEMIDE 40 MG/4 ML VIAL (J1940) IV ×2 (12:50→20:57)
[2017-11-08 16:52] LABS: BEDSIDE GLUCOSE 114 MG/DL (83-110)
[2017-11-08] MEDS: WARFARIN SOD 4 MG TAB PO (17:07)
[2017-11-08] MEDS: FERROUS GLUCONATE 324 MG TAB PO (17:08)
[2017-11-08] MEDS: FAMOTIDINE 20 MG TAB PO (20:56)
[2017-11-08] MEDS: traZODone 50 MG TAB PO (20:56)
[2017-11-08 23:22] LABS: BEDSIDE GLUCOSE 103 MG/DL (83-110)
[2017-11-09] MEDS: FUROSEMIDE 40 MG/4 ML VIAL (J1940) IV ×4 (06:00→23:15)
[2017-11-09] MEDS: SLF 3 ML SYR IV ×3 (06:01→21:20)
[2017-11-09 06:17] LABS: ANION GAP 5 MEQ/L (8-16); BLOOD UREA NITROGEN 70 MG/DL (7-18); CALCIUM LEVEL 7.9 MG/DL (8.8-10.2); CARBON DIOXIDE LEVEL 32 MEQ/L (21-32); CHLORIDE LEVEL 101 MEQ/L (98-107); CREATININE FOR GFR 1.71 MG/DL (0.70-1.30); GLOMERULAR FILTRATION RATE 42.2 (>42); GLUCOSE, FASTING 97 MG/DL (70-100); MAGNESIUM LEVEL 2.6 MG/DL (1.8-2.4); POTASSIUM SERUM 4.4 MEQ/L (3.5-5.1); SODIUM LEVEL 138 MEQ/L (136-145)
[2017-11-09 07:05] LABS: BEDSIDE GLUCOSE 118 MG/DL (83-110)
[2017-11-09] MEDS: HumaLOG INSULIN (NovoLOG) PER UNIT SC ×4 (07:26→20:02)
[2017-11-09] MEDS: LACTOBACILLUS ACIDOPHILUS CAP (BACID) PO (07:35)
[2017-11-09] MEDS: FLUoxetine 20 MG CAP PO (07:35)
[2017-11-09] MEDS: ASPIRIN 81 MG ENTERIC TAB PO (07:36)
[2017-11-09] MEDS: MULTIVITAMINS/MINERALS THERAP 1 TAB PO ×2 (07:36→21:19)
[2017-11-09] MEDS: ATORVASTATIN 20 MG TAB PO (07:36)
[2017-11-09] MEDS: FINASTERIDE 5 MG TAB PO (07:36)
[2017-11-09] MEDS: FERROUS GLUCONATE 324 MG TAB PO (07:36)
[2017-11-09] MEDS: CYANOCOBALAMIN 500 MCG TAB PO ×3 (07:36→17:12)
[2017-11-09] MEDS: OMEPRAZOLE 20 MG CAP PO ×2 (07:37→21:19)
[2017-11-09] MEDS: TAMSULOSIN 0.4 MG CAP PO (07:37)
[2017-11-09] MEDS: GABAPENTIN 300 MG CAP PO ×2 (07:37→21:19)
[2017-11-09] MEDS: FEBUXOSTAT 40 MG TABLET (ULORIC) PO (07:37)
[2017-11-09] MEDS: oxyCODONE 10 MG CR TAB PO ×2 (07:38→21:20)
[2017-11-09 09:07] LABS: HEMATOCRIT 25.2 % (42.0-52.0); MEAN CORPUSCULAR HEMOGLOBIN 29.2 pg (27.0-33.0); MEAN CORPUSCULAR HGB CONC 31.7 g/dl (32.0-36.5); PLATELET COUNT, AUTOMATED 189 10^3/uL (150-450); RED BLOOD COUNT 2.74 10^6/uL (4.30-6.10); RED CELL DISTRIBUTION WIDTH 14.9 % (11.5-14.5); WHITE BLOOD COUNT 6.9 10^3/uL (4.0-10.0)
[2017-11-09 12:40] LABS: BEDSIDE GLUCOSE 125 MG/DL (83-110)
[2017-11-09] MEDS: AcetaZOLAMIDE 500MG INJECTION (J1120) IV ×2 (12:46→14:25)
[2017-11-09] MEDS: oxyCODONE 5MG TAB PO ×2 (12:46→17:13)
[2017-11-09 16:38] LABS: BEDSIDE GLUCOSE 164 MG/DL (83-110)
[2017-11-09] MEDS: WARFARIN SOD 4 MG TAB PO (17:13)
[2017-11-09 20:12] LABS: BEDSIDE GLUCOSE 115 MG/DL (83-110)
[2017-11-09] MEDS: traZODone 50 MG TAB PO (21:19)
[2017-11-09] MEDS: FAMOTIDINE 20 MG TAB PO (21:19)
[2017-11-10] MEDS: oxyCODONE 5MG TAB PO ×4 (01:46→19:14)
[2017-11-10] MEDS: SLF 3 ML SYR IV ×3 (05:25→21:14)
[2017-11-10] MEDS: FUROSEMIDE 40 MG/4 ML VIAL (J1940) IV (05:25)
[2017-11-10 06:27] LABS: HEMATOCRIT 25.1 % (42.0-52.0); MEAN CORPUSCULAR HGB CONC 31.9 g/dl (32.0-36.5); MEAN CORPUSCULAR VOLUME 90.9 fl (80.0-96.0); PLATELET COUNT, AUTOMATED 218 10^3/uL (150-450); RED BLOOD COUNT 2.76 10^6/uL (4.30-6.10); RED CELL DISTRIBUTION WIDTH 14.8 % (11.5-14.5); WHITE BLOOD COUNT 5.8 10^3/uL (4.0-10.0)
[2017-11-10 06:27] LABS: BEDSIDE GLUCOSE 131 MG/DL (83-110)
[2017-11-10 06:37] LABS: ANION GAP 6 MEQ/L (8-16); BLOOD UREA NITROGEN 75 MG/DL (7-18); CALCIUM LEVEL 7.8 MG/DL (8.8-10.2); CARBON DIOXIDE LEVEL 31 MEQ/L (21-32); CHLORIDE LEVEL 100 MEQ/L (98-107); GLOMERULAR FILTRATION RATE 42.5 (>42); GLUCOSE, FASTING 115 MG/DL (70-100); MAGNESIUM LEVEL 2.8 MG/DL (1.8-2.4); POTASSIUM SERUM 4.2 MEQ/L (3.5-5.1); SODIUM LEVEL 137 MEQ/L (136-145)
[2017-11-10] MEDS: ASPIRIN 81 MG ENTERIC TAB PO (09:00)
[2017-11-10] MEDS: HumaLOG INSULIN (NovoLOG) PER UNIT SC ×4 (10:27→21:00)
[2017-11-10] MEDS: oxyCODONE 10 MG CR TAB PO ×2 (10:28→21:18)
[2017-11-10] MEDS: ATORVASTATIN 20 MG TAB PO (10:29)
[2017-11-10] MEDS: FEBUXOSTAT 40 MG TABLET (ULORIC) PO (10:29)
[2017-11-10] MEDS: FLUoxetine 20 MG CAP PO (10:29)
[2017-11-10] MEDS: MULTIVITAMINS/MINERALS THERAP 1 TAB PO ×2 (10:31→21:18)
[2017-11-10] MEDS: FINASTERIDE 5 MG TAB PO (10:31)
[2017-11-10] MEDS: FERROUS GLUCONATE 324 MG TAB PO (10:31)
[2017-11-10] MEDS: CYANOCOBALAMIN 500 MCG TAB PO ×3 (10:31→18:23)
[2017-11-10] MEDS: TAMSULOSIN 0.4 MG CAP PO (10:31)
[2017-11-10] MEDS: OMEPRAZOLE 20 MG CAP PO ×2 (10:32→21:18)
[2017-11-10] MEDS: LACTOBACILLUS ACIDOPHILUS CAP (BACID) PO (10:34)
[2017-11-10] MEDS: GABAPENTIN 300 MG CAP PO ×2 (10:35→21:17)
[2017-11-10] MEDS: diltiaZEM **CD** 180 MG CAP PO (10:42)
[2017-11-10] MEDS ORDERED: FUROSEMIDE injection 250 MG in D5W 225 ML IV ×2 (11:45→13:00)
[2017-11-10 12:01] LABS: BEDSIDE GLUCOSE 138 MG/DL (83-110)
[2017-11-10 12:38] LABS: INR 1.94; PROTHROMBIN TIME 22.8 SECONDS (12.4-14.5)
[2017-11-10] MEDS: FUROSEMIDE injection 250 MG in D5W 225 ML IV (13:13)
[2017-11-10 17:04] LABS: BEDSIDE GLUCOSE 132 MG/DL (83-110)
[2017-11-10] MEDS: ACETAMINOPHEN 500 MG TAB PO (18:24)
[2017-11-10] MEDS: WARFARIN SOD 4 MG TAB PO (18:24)
[2017-11-10 20:14] LABS: BEDSIDE GLUCOSE 99 MG/DL (83-110)
[2017-11-10] MEDS: traZODone 50 MG TAB PO (21:17)
[2017-11-10] MEDS: FAMOTIDINE 20 MG TAB PO (21:17)
[2017-11-11] MEDS: SLF 3 ML SYR IV ×3 (03:46→21:25)
[2017-11-11] MEDS: oxyCODONE 5MG TAB PO ×4 (06:25→23:33)
[2017-11-11 06:55] LABS: HEMATOCRIT 25.6 % (42.0-52.0); HEMOGLOBIN 8.5 g/dl (13.5-17.5); MEAN CORPUSCULAR HGB CONC 33.2 g/dl (32.0-36.5); MEAN CORPUSCULAR VOLUME 87.4 fl (80.0-96.0); PLATELET COUNT, AUTOMATED 263 10^3/uL (150-450); RED BLOOD COUNT 2.93 10^6/uL (4.30-6.10); RED CELL DISTRIBUTION WIDTH 15.1 % (11.5-14.5)
[2017-11-11 06:57] LABS: INR 1.73; PROTHROMBIN TIME 20.8 SECONDS (12.4-14.5)
[2017-11-11 06:58] LABS: ANION GAP 8 MEQ/L (8-16); BLOOD UREA NITROGEN 65 MG/DL (7-18); CALCIUM LEVEL 7.6 MG/DL (8.8-10.2); CARBON DIOXIDE LEVEL 30 MEQ/L (21-32); CHLORIDE LEVEL 104 MEQ/L (98-107); CREATININE FOR GFR 1.54 MG/DL (0.70-1.30); GLOMERULAR FILTRATION RATE 47.6 (>42); GLUCOSE, FASTING 101 MG/DL (70-100); MAGNESIUM LEVEL 2.7 MG/DL (1.8-2.4); POTASSIUM SERUM 4.1 MEQ/L (3.5-5.1); SODIUM LEVEL 142 MEQ/L (136-145)
[2017-11-11] MEDS: HumaLOG INSULIN (NovoLOG) PER UNIT SC ×4 (09:24→21:00)
[2017-11-11] MEDS: CYANOCOBALAMIN 500 MCG TAB PO ×3 (09:24→17:09)
[2017-11-11] MEDS: ATORVASTATIN 20 MG TAB PO (09:25)
[2017-11-11] MEDS: FLUoxetine 20 MG CAP PO (09:25)
[2017-11-11] MEDS: TAMSULOSIN 0.4 MG CAP PO (09:25)
[2017-11-11] MEDS: ASPIRIN 81 MG ENTERIC TAB PO (09:25)
[2017-11-11] MEDS: GABAPENTIN 300 MG CAP PO ×2 (09:25→21:24)
[2017-11-11] MEDS: OMEPRAZOLE 20 MG CAP PO ×2 (09:25→21:24)
[2017-11-11] MEDS: FERROUS GLUCONATE 324 MG TAB PO (09:25)
[2017-11-11] MEDS: diltiaZEM **CD** 180 MG CAP PO (09:26)
[2017-11-11] MEDS: MULTIVITAMINS/MINERALS THERAP 1 TAB PO ×2 (09:26→21:24)
[2017-11-11] MEDS: FEBUXOSTAT 40 MG TABLET (ULORIC) PO (09:26)
[2017-11-11] MEDS: FINASTERIDE 5 MG TAB PO (09:26)
[2017-11-11] MEDS: LACTOBACILLUS ACIDOPHILUS CAP (BACID) PO (09:26)
[2017-11-11] MEDS: oxyCODONE 10 MG CR TAB PO ×2 (09:27→21:24)
[2017-11-11 11:39] LABS: BEDSIDE GLUCOSE 117 MG/DL (83-110)
[2017-11-11] MEDS: IPRATROPIUM 0.5MG/ALBUTEROL 2.5MG INH SOL UD 3ML (DUONEB)(J7620) NEB ×3 (11:46→22:32)
[2017-11-11] MEDS: SYMBICORT 80/4.5MCG INHALER 6GM INH ×2 (11:47→19:44)
[2017-11-11] MEDS: FUROSEMIDE injection 250 MG in D5W 225 ML IV (13:40)
[2017-11-11 16:55] LABS: BEDSIDE GLUCOSE 133 MG/DL (83-110)
[2017-11-11] MEDS: WARFARIN SOD 4 MG TAB PO (17:09)
[2017-11-11] MEDS: WARFARIN SOD 3 MG TAB PO (17:09)
[2017-11-11 17:18] LABS: TOTAL VOLUME, URINE 3650 ML
[2017-11-11 18:14] LABS: CREATININE 24 HOUR, URINE 1584.1 MG/24HR (950-2500); CREATININE, URINE 43.4 MG/DL; TOTAL PROTEIN 24 HOUR URINE 6832.8 MG/24HR (50-150); URINE TOTAL PROTEIN 187.2 MG/DL (0-12)
[2017-11-11 21:12] LABS: BEDSIDE GLUCOSE 107 MG/DL (83-110)
[2017-11-11] MEDS: FAMOTIDINE 20 MG TAB PO (21:23)
[2017-11-11] MEDS: traZODone 50 MG TAB PO (21:24)
[2017-11-12] MEDS: oxyCODONE 5MG TAB PO ×4 (05:08→18:36)
[2017-11-12] MEDS: SLF 3 ML SYR IV ×4 (05:08→22:00)
[2017-11-12 06:39] LABS: HEMATOCRIT 24.2 % (42.0-52.0); HEMOGLOBIN 7.8 g/dl (13.5-17.5); MEAN CORPUSCULAR HEMOGLOBIN 28.6 pg (27.0-33.0); MEAN CORPUSCULAR HGB CONC 32.2 g/dl (32.0-36.5); MEAN CORPUSCULAR VOLUME 88.6 fl (80.0-96.0); PLATELET COUNT, AUTOMATED 285 10^3/uL (150-450); RED BLOOD COUNT 2.73 10^6/uL (4.30-6.10); RED CELL DISTRIBUTION WIDTH 15.3 % (11.5-14.5); WHITE BLOOD COUNT 5.4 10^3/uL (4.0-10.0)
[2017-11-12 06:50] LABS: INR 2.32; PROTHROMBIN TIME 26.4 SECONDS (12.4-14.5)
[2017-11-12 07:06] LABS: ANION GAP 8 MEQ/L (8-16); BLOOD UREA NITROGEN 53 MG/DL (7-18); CALCIUM LEVEL 8.1 MG/DL (8.8-10.2); CARBON DIOXIDE LEVEL 30 MEQ/L (21-32); CHLORIDE LEVEL 104 MEQ/L (98-107); CREATININE FOR GFR 1.37 MG/DL (0.70-1.30); GLOMERULAR FILTRATION RATE 54.5 (>42); GLUCOSE, FASTING 101 MG/DL (70-100); MAGNESIUM LEVEL 2.5 MG/DL (1.8-2.4); POTASSIUM SERUM 3.6 MEQ/L (3.5-5.1); SODIUM LEVEL 142 MEQ/L (136-145)
[2017-11-12] MEDS: IPRATROPIUM 0.5MG/ALBUTEROL 2.5MG INH SOL UD 3ML (DUONEB)(J7620) NEB ×3 (08:00→23:05)
[2017-11-12] MEDS: FLUoxetine 20 MG CAP PO (08:05)
[2017-11-12] MEDS: CYANOCOBALAMIN 500 MCG TAB PO ×3 (08:05→18:09)
[2017-11-12] MEDS: GABAPENTIN 300 MG CAP PO ×2 (08:05→21:01)
[2017-11-12] MEDS: HumaLOG INSULIN (NovoLOG) PER UNIT SC ×4 (08:05→21:00)
[2017-11-12] MEDS: OMEPRAZOLE 20 MG CAP PO ×2 (08:05→21:01)
[2017-11-12] MEDS: ASPIRIN 81 MG ENTERIC TAB PO (08:06)
[2017-11-12] MEDS: MULTIVITAMINS/MINERALS THERAP 1 TAB PO ×2 (08:06→21:01)
[2017-11-12] MEDS: ATORVASTATIN 20 MG TAB PO (08:06)
[2017-11-12] MEDS: FERROUS GLUCONATE 324 MG TAB PO (08:06)
[2017-11-12] MEDS: TAMSULOSIN 0.4 MG CAP PO (08:06)
[2017-11-12] MEDS: FINASTERIDE 5 MG TAB PO (08:06)
[2017-11-12] MEDS: FEBUXOSTAT 40 MG TABLET (ULORIC) PO (08:07)
[2017-11-12] MEDS: LACTOBACILLUS ACIDOPHILUS CAP (BACID) PO (08:07)
[2017-11-12] MEDS: oxyCODONE 10 MG CR TAB PO ×2 (08:07→21:05)
[2017-11-12] MEDS: SYMBICORT 80/4.5MCG INHALER 6GM INH ×2 (08:51→23:05)
[2017-11-12] MEDS: CHLOROTHIAZIDE 500 MG VIAL (J1205) IV ×2 (10:19→18:30)
[2017-11-12] MEDS: POTASSIUM CHLORIDE 10 MEQ SR TABLET PO ×2 (10:19→18:09)
[2017-11-12 11:49] LABS: BEDSIDE GLUCOSE 147 MG/DL (83-110)
[2017-11-12] MEDS: FUROSEMIDE injection 250 MG in D5W 225 ML IV (12:24)
[2017-11-12 16:33] LABS: BEDSIDE GLUCOSE 104 MG/DL (83-110)
[2017-11-12] MEDS: WARFARIN SOD 4 MG TAB PO (18:09)
[2017-11-12 20:27] LABS: BEDSIDE GLUCOSE 93 MG/DL (83-110)
[2017-11-12] MEDS: traZODone 50 MG TAB PO (21:01)
[2017-11-12] MEDS: FAMOTIDINE 20 MG TAB PO (21:02)
[2017-11-13] MEDS: oxyCODONE 5MG TAB PO ×4 (00:26→18:41)
[2017-11-13] MEDS: SLF 3 ML SYR IV ×4 (04:58→21:50)
[2017-11-13 05:54] LABS: HEMATOCRIT 24.3 % (42.0-52.0); HEMOGLOBIN 7.6 g/dl (13.5-17.5); MEAN CORPUSCULAR HEMOGLOBIN 28.1 pg (27.0-33.0); MEAN CORPUSCULAR HGB CONC 31.3 g/dl (32.0-36.5); PLATELET COUNT, AUTOMATED 311 10^3/uL (150-450); RED CELL DISTRIBUTION WIDTH 15.5 % (11.5-14.5); WHITE BLOOD COUNT 6.2 10^3/uL (4.0-10.0)
[2017-11-13 06:03] LABS: INR 2.63; PROTHROMBIN TIME 29.2 SECONDS (12.4-14.5)
[2017-11-13 06:19] LABS: ANION GAP 6 MEQ/L (8-16); BLOOD UREA NITROGEN 50 MG/DL (7-18); CALCIUM LEVEL 7.9 MG/DL (8.8-10.2); CARBON DIOXIDE LEVEL 32 MEQ/L (21-32); CHLORIDE LEVEL 105 MEQ/L (98-107); CREATININE FOR GFR 1.38 MG/DL (0.70-1.30); GLOMERULAR FILTRATION RATE 54.1 (>42); GLUCOSE, FASTING 94 MG/DL (70-100); MAGNESIUM LEVEL 2.4 MG/DL (1.8-2.4); POTASSIUM SERUM 3.6 MEQ/L (3.5-5.1); SODIUM LEVEL 143 MEQ/L (136-145)
[2017-11-13 06:27] LABS: BEDSIDE GLUCOSE 100 MG/DL (83-110)
[2017-11-13] MEDS: HumaLOG INSULIN (NovoLOG) PER UNIT SC ×4 (07:45→21:00)
[2017-11-13] MEDS: IPRATROPIUM 0.5MG/ALBUTEROL 2.5MG INH SOL UD 3ML (DUONEB)(J7620) NEB ×2 (08:00→16:39)
[2017-11-13] MEDS: SYMBICORT 80/4.5MCG INHALER 6GM INH ×2 (08:43→19:47)
[2017-11-13] MEDS: ASPIRIN 81 MG ENTERIC TAB PO (09:31)
[2017-11-13] MEDS: TAMSULOSIN 0.4 MG CAP PO (09:31)
[2017-11-13] MEDS: FINASTERIDE 5 MG TAB PO (09:31)
[2017-11-13] MEDS: GABAPENTIN 300 MG CAP PO ×2 (09:31→21:49)
[2017-11-13] MEDS: FLUoxetine 20 MG CAP PO (09:31)
[2017-11-13] MEDS: FEBUXOSTAT 40 MG TABLET (ULORIC) PO (09:31)
[2017-11-13] MEDS: LACTOBACILLUS ACIDOPHILUS CAP (BACID) PO (09:31)
[2017-11-13] MEDS: MULTIVITAMINS/MINERALS THERAP 1 TAB PO ×2 (09:32→21:49)
[2017-11-13] MEDS: OMEPRAZOLE 20 MG CAP PO ×2 (09:32→21:49)
[2017-11-13] MEDS: FERROUS GLUCONATE 324 MG TAB PO (09:32)
[2017-11-13] MEDS: CYANOCOBALAMIN 500 MCG TAB PO ×3 (09:32→17:03)
[2017-11-13] MEDS: ATORVASTATIN 20 MG TAB PO (09:32)
[2017-11-13] MEDS: oxyCODONE 10 MG CR TAB PO ×2 (09:33→21:50)
[2017-11-13 11:57] LABS: BEDSIDE GLUCOSE 110 MG/DL (83-110)
[2017-11-13] MEDS: POTASSIUM CHLORIDE 10 MEQ SR TABLET PO (13:03)
[2017-11-13] MEDS: FUROSEMIDE injection 250 MG in D5W 225 ML IV (13:04)
[2017-11-13] MEDS: AcetaZOLAMIDE 500MG INJECTION (J1120) IV ×2 (14:20→21:49)
[2017-11-13 16:49] LABS: BEDSIDE GLUCOSE 112 MG/DL (83-110)
[2017-11-13] MEDS: WARFARIN SOD 4 MG TAB PO (17:02)
[2017-11-13 20:06] LABS: BEDSIDE GLUCOSE 140 MG/DL (83-110)
[2017-11-13] MEDS: FAMOTIDINE 20 MG TAB PO (21:48)
[2017-11-13] MEDS: traZODone 50 MG TAB PO (21:49)
[2017-11-14 00:01] LABS: IMMEDIATE SPIN CROSSMATCH 1 1
[2017-11-14] MEDS: IPRATROPIUM 0.5MG/ALBUTEROL 2.5MG INH SOL UD 3ML (DUONEB)(J7620) NEB ×3 (00:10→16:00)
[2017-11-14] MEDS: oxyCODONE 5MG TAB PO ×5 (00:36→19:46)
[2017-11-14] MEDS: FUROSEMIDE 20 MG/2 ML VIAL (J1940) IV (01:39)
[2017-11-14] MEDS: SLF 3 ML SYR IV ×3 (05:49→23:13)
[2017-11-14 06:32] LABS: HEMATOCRIT 24.5 % (42.0-52.0); MEAN CORPUSCULAR HEMOGLOBIN 29.1 pg (27.0-33.0); MEAN CORPUSCULAR HGB CONC 32.7 g/dl (32.0-36.5); MEAN CORPUSCULAR VOLUME 89.1 fl (80.0-96.0); PLATELET COUNT, AUTOMATED 329 10^3/uL (150-450); RED BLOOD COUNT 2.75 10^6/uL (4.30-6.10); RED CELL DISTRIBUTION WIDTH 15.2 % (11.5-14.5); WHITE BLOOD COUNT 8.5 10^3/uL (4.0-10.0)
[2017-11-14 07:29] LABS: BEDSIDE GLUCOSE 136 MG/DL (83-110)
[2017-11-14] MEDS: CYANOCOBALAMIN 500 MCG TAB PO ×3 (07:59→17:17)
[2017-11-14] MEDS: HumaLOG INSULIN (NovoLOG) PER UNIT SC ×4 (07:59→20:46)
[2017-11-14] MEDS: FEBUXOSTAT 40 MG TABLET (ULORIC) PO (07:59)
[2017-11-14] MEDS: TAMSULOSIN 0.4 MG CAP PO (07:59)
[2017-11-14] MEDS: FERROUS GLUCONATE 324 MG TAB PO (07:59)
[2017-11-14] MEDS: GABAPENTIN 300 MG CAP PO ×2 (07:59→21:34)
[2017-11-14] MEDS: ASPIRIN 81 MG ENTERIC TAB PO (07:59)
[2017-11-14] MEDS: FLUoxetine 20 MG CAP PO (08:00)
[2017-11-14] MEDS: MULTIVITAMINS/MINERALS THERAP 1 TAB PO ×2 (08:00→21:34)
[2017-11-14] MEDS: OMEPRAZOLE 20 MG CAP PO ×2 (08:00→21:34)
[2017-11-14] MEDS: LACTOBACILLUS ACIDOPHILUS CAP (BACID) PO (08:00)
[2017-11-14] MEDS: FINASTERIDE 5 MG TAB PO (08:01)
[2017-11-14] MEDS: oxyCODONE 10 MG CR TAB PO ×2 (08:01→21:35)
[2017-11-14] MEDS: ATORVASTATIN 20 MG TAB PO (08:01)
[2017-11-14] MEDS: SYMBICORT 80/4.5MCG INHALER 6GM INH ×2 (09:12→21:00)
[2017-11-14 10:46] LABS: ALBUMIN 1.8 GM/DL (3.2-5.2)
[2017-11-14 11:30] LABS: BEDSIDE GLUCOSE 101 MG/DL (83-110)
[2017-11-14 12:10] LABS: ANION GAP 7 MEQ/L (8-16); BLOOD UREA NITROGEN 41 MG/DL (7-18); CALCIUM LEVEL 7.9 MG/DL (8.8-10.2); CARBON DIOXIDE LEVEL 31 MEQ/L (21-32); CHLORIDE LEVEL 107 MEQ/L (98-107); CREATININE FOR GFR 1.24 MG/DL (0.70-1.30); GLOMERULAR FILTRATION RATE > 60.0 (>42); GLUCOSE, FASTING 104 MG/DL (70-100); PHOSPHORUS LEVEL 4.1 MG/DL (2.5-4.9); POTASSIUM SERUM 3.3 MEQ/L (3.5-5.1); SODIUM LEVEL 145 MEQ/L (136-145)
[2017-11-14] MEDS: FUROSEMIDE injection 250 MG in D5W 225 ML IV (12:37)
[2017-11-14] MEDS ORDERED: IRON SUCROSE 100MG 5ML VIAL (J1756 PER 1MG) IV (15:00)
[2017-11-14] MEDS: FUROSEMIDE 100 MG/10 ML VIAL (J1940) IV ×2 (15:17→23:13)
[2017-11-14] MEDS: POTASSIUM CHLORIDE 10 MEQ SR TABLET PO (15:17)
[2017-11-14] MEDS: WARFARIN SOD 4 MG TAB PO (16:17)
[2017-11-14] MEDS: IRON SUCROSE 200 MG in NS 100 ML IV (16:17)
[2017-11-14 16:39] LABS: BEDSIDE GLUCOSE 219 MG/DL (83-110)
[2017-11-14 20:36] LABS: BEDSIDE GLUCOSE 76 MG/DL (83-110)
[2017-11-14] MEDS: traZODone 50 MG TAB PO (21:34)
[2017-11-14] MEDS: FAMOTIDINE 20 MG TAB PO (21:34)
[2017-11-15 06:13] LABS: BEDSIDE GLUCOSE 93 MG/DL (83-110)
[2017-11-15] MEDS: SLF 3 ML SYR IV ×4 (06:43→22:54)
[2017-11-15] MEDS: FUROSEMIDE 100 MG/10 ML VIAL (J1940) IV ×3 (06:43→22:53)
[2017-11-15] MEDS: oxyCODONE 5MG TAB PO ×3 (07:11→18:35)
[2017-11-15] MEDS: HumaLOG INSULIN (NovoLOG) PER UNIT SC ×4 (07:30→20:59)
[2017-11-15] MEDS: POTASSIUM CHLORIDE 10 MEQ SR TABLET PO ×2 (08:03→09:33)
[2017-11-15] MEDS: CYANOCOBALAMIN 500 MCG TAB PO ×3 (08:03→17:27)
[2017-11-15] MEDS: IPRATROPIUM 0.5MG/ALBUTEROL 2.5MG INH SOL UD 3ML (DUONEB)(J7620) NEB ×3 (09:09→15:51)
[2017-11-15] MEDS: SYMBICORT 80/4.5MCG INHALER 6GM INH ×2 (09:10→21:06)
[2017-11-15] MEDS: ASPIRIN 81 MG ENTERIC TAB PO (09:29)
[2017-11-15] MEDS: FEBUXOSTAT 40 MG TABLET (ULORIC) PO (09:30)
[2017-11-15] MEDS: LACTOBACILLUS ACIDOPHILUS CAP (BACID) PO (09:30)
[2017-11-15] MEDS: ATORVASTATIN 20 MG TAB PO (09:30)
[2017-11-15] MEDS: OMEPRAZOLE 20 MG CAP PO ×2 (09:30→20:55)
[2017-11-15] MEDS: oxyCODONE 10 MG CR TAB PO ×2 (09:30→20:54)
[2017-11-15] MEDS: FINASTERIDE 5 MG TAB PO (09:30)
[2017-11-15] MEDS: FERROUS GLUCONATE 324 MG TAB PO (09:31)
[2017-11-15] MEDS: GABAPENTIN 300 MG CAP PO ×2 (09:32→20:55)
[2017-11-15] MEDS: MULTIVITAMINS/MINERALS THERAP 1 TAB PO ×2 (09:32→20:57)
[2017-11-15] MEDS: TAMSULOSIN 0.4 MG CAP PO (09:32)
[2017-11-15] MEDS: FLUoxetine 20 MG CAP PO (09:33)
[2017-11-15 11:49] LABS: BASO # 0.1 10^3/uL (0.0-0.2); BASO % 0.6 % (0.0-1.0); EOS # 0.1 10^3/uL (0.0-0.50); HEMATOCRIT 25.1 % (42.0-52.0); IMMATURE GRANULOCYTE % 0.6 % (0-3.0); LYMPH # 0.9 10^3/uL (1.5-4.5); LYMPH % 9.7 % (24.0-44.0); MEAN CORPUSCULAR HEMOGLOBIN 28.6 pg (27.0-33.0); MEAN CORPUSCULAR HGB CONC 31.9 g/dl (32.0-36.5); MEAN CORPUSCULAR VOLUME 89.6 fl (80.0-96.0); MONO # 1.3 10^3/uL (0.0-0.8); MONO % 14.5 % (0.0-5.0); NEUTROPHILS # 6.4 10^3/uL (1.8-7.7); NEUTROPHILS % 73.6 % (36.0-66.0); PLATELET COUNT, AUTOMATED 394 10^3/uL (150-450); RED CELL DISTRIBUTION WIDTH 15.3 % (11.5-14.5); WHITE BLOOD COUNT 8.7 10^3/uL (4.0-10.0)
[2017-11-15 11:53] LABS: BEDSIDE GLUCOSE 143 MG/DL (83-110)
[2017-11-15 12:32] LABS: ALBUMIN 1.9 GM/DL (3.2-5.2); ANION GAP 5 MEQ/L (8-16); BLOOD UREA NITROGEN 38 MG/DL (7-18); CALCIUM LEVEL 7.5 MG/DL (8.8-10.2); CARBON DIOXIDE LEVEL 32 MEQ/L (21-32); CHLORIDE LEVEL 105 MEQ/L (98-107); CREATININE FOR GFR 1.38 MG/DL (0.70-1.30); GLOMERULAR FILTRATION RATE 53.9 (>42); GLUCOSE, FASTING 136 MG/DL (70-100); PHOSPHORUS LEVEL 3.7 MG/DL (2.5-4.9); SODIUM LEVEL 142 MEQ/L (136-145)
[2017-11-15 12:34] LABS: POTASSIUM SERUM 4.6 MEQ/L (3.5-5.1)
[2017-11-15] MEDS: NYSTATIN 500,000 U/5 ML SUSP UDC PO ×3 (14:38→20:58)
[2017-11-15] MEDS: predniSONE 20 MG TAB PO (14:38)
[2017-11-15] MEDS: NEORAL 100 MG CAP (J7502)(C9438) PO ×2 (15:49→20:59)
[2017-11-15] MEDS: IRON SUCROSE 200 MG in NS 100 ML IV (15:49)
[2017-11-15] MEDS: VALSARTAN 40MG TABLET (DIOVAN) PO (15:49)
[2017-11-15 16:46] LABS: BEDSIDE GLUCOSE 143 MG/DL (83-110)
[2017-11-15] MEDS: WARFARIN SOD 4 MG TAB PO (17:27)
[2017-11-15 20:08] LABS: BEDSIDE GLUCOSE 153 MG/DL (83-110)
[2017-11-15] MEDS: traZODone 50 MG TAB PO (20:57)
[2017-11-15] MEDS: FAMOTIDINE 20 MG TAB PO (20:58)
[2017-11-16 06:06] LABS: HEMATOCRIT 23.6 % (42.0-52.0); HEMOGLOBIN 7.7 g/dl (13.5-17.5); MEAN CORPUSCULAR HEMOGLOBIN 29.1 pg (27.0-33.0); MEAN CORPUSCULAR HGB CONC 32.6 g/dl (32.0-36.5); MEAN CORPUSCULAR VOLUME 89.1 fl (80.0-96.0); PLATELET COUNT, AUTOMATED 426 10^3/uL (150-450); RED BLOOD COUNT 2.65 10^6/uL (4.30-6.10); RED CELL DISTRIBUTION WIDTH 15.2 % (11.5-14.5); WHITE BLOOD COUNT 8.9 10^3/uL (4.0-10.0)
[2017-11-16] MEDS: SLF 3 ML SYR IV ×3 (06:06→21:34)
[2017-11-16] MEDS: FUROSEMIDE 100 MG/10 ML VIAL (J1940) IV ×3 (06:06→22:57)
[2017-11-16 06:18] LABS: INR 2.83
[2017-11-16 06:23] LABS: ANION GAP 8 MEQ/L (8-16); BLOOD UREA NITROGEN 38 MG/DL (7-18); CALCIUM LEVEL 7.7 MG/DL (8.8-10.2); CARBON DIOXIDE LEVEL 30 MEQ/L (21-32); CHLORIDE LEVEL 104 MEQ/L (98-107); CREATININE FOR GFR 1.48 MG/DL (0.70-1.30); GLOMERULAR FILTRATION RATE 49.7 (>42); GLUCOSE, FASTING 154 MG/DL (70-100); POTASSIUM SERUM 3.7 MEQ/L (3.5-5.1); SODIUM LEVEL 142 MEQ/L (136-145)
[2017-11-16] MEDS: SYMBICORT 80/4.5MCG INHALER 6GM INH ×2 (07:44→08:41)
[2017-11-16] MEDS: IPRATROPIUM 0.5MG/ALBUTEROL 2.5MG INH SOL UD 3ML (DUONEB)(J7620) NEB ×5 (07:45→23:31)
[2017-11-16] MEDS: NYSTATIN 500,000 U/5 ML SUSP UDC PO ×4 (07:49→21:29)
[2017-11-16] MEDS: GABAPENTIN 300 MG CAP PO ×2 (07:50→21:28)
[2017-11-16] MEDS: FLUoxetine 20 MG CAP PO (07:50)
[2017-11-16] MEDS: FERROUS GLUCONATE 324 MG TAB PO (07:51)
[2017-11-16] MEDS: predniSONE 20 MG TAB PO (07:51)
[2017-11-16] MEDS: ASPIRIN 81 MG ENTERIC TAB PO (07:52)
[2017-11-16] MEDS: OMEPRAZOLE 20 MG CAP PO ×2 (07:52→21:29)
[2017-11-16] MEDS: POTASSIUM CHLORIDE 10 MEQ SR TABLET PO (07:52)
[2017-11-16] MEDS: BACTRIM 160MG/800MG DS TAB PO ×2 (07:53→07:59)
[2017-11-16] MEDS: ATORVASTATIN 20 MG TAB PO (07:53)
[2017-11-16] MEDS: CYANOCOBALAMIN 500 MCG TAB PO ×3 (07:53→16:46)
[2017-11-16] MEDS: VALSARTAN 40MG TABLET (DIOVAN) PO (07:53)
[2017-11-16] MEDS: MULTIVITAMINS/MINERALS THERAP 1 TAB PO ×2 (07:54→21:28)
[2017-11-16] MEDS: FEBUXOSTAT 40 MG TABLET (ULORIC) PO (07:54)
[2017-11-16] MEDS: LACTOBACILLUS ACIDOPHILUS CAP (BACID) PO (07:54)
[2017-11-16] MEDS: FINASTERIDE 5 MG TAB PO (07:54)
[2017-11-16] MEDS: NEORAL 100 MG CAP (J7502)(C9438) PO ×2 (07:54→21:35)
[2017-11-16] MEDS: oxyCODONE 10 MG CR TAB PO ×2 (07:55→21:33)
[2017-11-16] MEDS: HumaLOG INSULIN (NovoLOG) PER UNIT SC ×4 (07:56→21:35)
[2017-11-16] MEDS: TAMSULOSIN 0.4 MG CAP PO (08:01)
[2017-11-16 12:16] LABS: BEDSIDE GLUCOSE 150 MG/DL (83-110)
[2017-11-16] MEDS: oxyCODONE 5MG TAB PO ×2 (13:28→18:24)
[2017-11-16 13:39] LABS: IMMEDIATE SPIN CROSSMATCH 1 1
[2017-11-16 16:37] LABS: BEDSIDE GLUCOSE 176 MG/DL (83-110)
[2017-11-16] MEDS: WARFARIN SOD 4 MG TAB PO (16:46)
[2017-11-16 20:18] LABS: BEDSIDE GLUCOSE 135 MG/DL (83-110)
[2017-11-16] MEDS: traZODone 50 MG TAB PO (21:29)
[2017-11-16] MEDS: FAMOTIDINE 20 MG TAB PO (21:29)
[2017-11-17] MEDS: SLF 3 ML SYR IV ×3 (05:50→20:52)
[2017-11-17] MEDS: oxyCODONE 5MG TAB PO ×2 (05:51→14:52)
[2017-11-17] MEDS: FUROSEMIDE 100 MG/10 ML VIAL (J1940) IV ×2 (05:55→18:22)
[2017-11-17 06:37] LABS: HEMATOCRIT 25.7 % (42.0-52.0); HEMOGLOBIN 8.3 g/dl (13.5-17.5); MEAN CORPUSCULAR HEMOGLOBIN 28.8 pg (27.0-33.0); MEAN CORPUSCULAR HGB CONC 32.3 g/dl (32.0-36.5); MEAN CORPUSCULAR VOLUME 89.2 fl (80.0-96.0); PLATELET COUNT, AUTOMATED 432 10^3/uL (150-450); RED BLOOD COUNT 2.88 10^6/uL (4.30-6.10); RED CELL DISTRIBUTION WIDTH 15.8 % (11.5-14.5); WHITE BLOOD COUNT 10.9 10^3/uL (4.0-10.0)
[2017-11-17 06:54] LABS: INR 3.44; PROTHROMBIN TIME 36.3 SECONDS (12.4-14.5)
[2017-11-17 06:56] LABS: ALBUMIN 1.9 GM/DL (3.2-5.2); ANION GAP 7 MEQ/L (8-16); BLOOD UREA NITROGEN 47 MG/DL (7-18); CALCIUM LEVEL 7.8 MG/DL (8.8-10.2); CARBON DIOXIDE LEVEL 30 MEQ/L (21-32); CHLORIDE LEVEL 103 MEQ/L (98-107); CREATININE FOR GFR 1.61 MG/DL (0.70-1.30); GLOMERULAR FILTRATION RATE 45.1 (>42); GLUCOSE, FASTING 114 MG/DL (70-100); PHOSPHORUS LEVEL 4.4 MG/DL (2.5-4.9); POTASSIUM SERUM 3.8 MEQ/L (3.5-5.1); SODIUM LEVEL 140 MEQ/L (136-145)
[2017-11-17] MEDS: SYMBICORT 80/4.5MCG INHALER 6GM INH ×2 (07:51→20:29)
[2017-11-17] MEDS: IPRATROPIUM 0.5MG/ALBUTEROL 2.5MG INH SOL UD 3ML (DUONEB)(J7620) NEB ×3 (07:52→23:10)
[2017-11-17] MEDS: FINASTERIDE 5 MG TAB PO (08:10)
[2017-11-17] MEDS: FLUoxetine 20 MG CAP PO (08:11)
[2017-11-17] MEDS: predniSONE 20 MG TAB PO (08:13)
[2017-11-17] MEDS: TAMSULOSIN 0.4 MG CAP PO (08:14)
[2017-11-17] MEDS: GABAPENTIN 300 MG CAP PO ×2 (08:14→20:50)
[2017-11-17] MEDS: FEBUXOSTAT 40 MG TABLET (ULORIC) PO (08:14)
[2017-11-17] MEDS: LACTOBACILLUS ACIDOPHILUS CAP (BACID) PO (08:14)
[2017-11-17] MEDS: ATORVASTATIN 20 MG TAB PO (08:15)
[2017-11-17] MEDS: MULTIVITAMINS/MINERALS THERAP 1 TAB PO ×2 (08:15→20:51)
[2017-11-17] MEDS: CYANOCOBALAMIN 500 MCG TAB PO ×3 (08:15→18:21)
[2017-11-17] MEDS: OMEPRAZOLE 20 MG CAP PO ×2 (08:15→20:50)
[2017-11-17] MEDS: FERROUS GLUCONATE 324 MG TAB PO (08:15)
[2017-11-17] MEDS: ASPIRIN 81 MG ENTERIC TAB PO (08:16)
[2017-11-17] MEDS: POTASSIUM CHLORIDE 10 MEQ SR TABLET PO (08:16)
[2017-11-17] MEDS: VALSARTAN 40MG TABLET (DIOVAN) PO (08:16)
[2017-11-17] MEDS: oxyCODONE 10 MG CR TAB PO ×2 (08:18→20:51)
[2017-11-17] MEDS: NYSTATIN 500,000 U/5 ML SUSP UDC PO ×4 (08:18→20:51)
[2017-11-17] MEDS: NEORAL 100 MG CAP (J7502)(C9438) PO ×2 (08:19→20:50)
[2017-11-17] MEDS: HumaLOG INSULIN (NovoLOG) PER UNIT SC ×4 (08:20→20:57)
[2017-11-17 10:56] LABS: APPEARANCE, URINE CLEAR (CLEAR); BACTERIA, URINE AUTO NEGATIVE (NEGATIVE); BILIRUBIN, URINE AUTO NEGATIVE (NEGATIVE); BLOOD, URINE BLOOD 1+ (NEGATIVE); COLOR, URINE YELLOW (YELLOW); GLUCOSE, URINE (UA) AUTO NEGATIVE (NEGATIVE); KETONE, URINE AUTO NEGATIVE (NEGATIVE); LEUKOCYTE ESTERASE, URINE AUTO TRACE (NEGATIVE); MUCUS, URINE SMALL (NEGATIVE); NITRITE, URINE AUTO NEGATIVE (NEGATIVE); PROTEIN, URINE AUTO 2+ mg/dL (NEGATIVE); RBC, URINE AUTO 3 /HPF (0-3); SPECIFIC GRAVITY URINE AUTO 1.013 (1.002-1.035); SQUAMOUS EPITHELIAL CELL UR AU 0 /HPF (0-6); UROBILINOGEN, URINE AUTO 0.2 mg/dL (0.0-2.0); WBC, URINE AUTO 16 /HPF (0-3)
[2017-11-17 11:20] LABS: TOTAL PROTEIN,RANDOM URINE 96.5 MG/DL (0.0-12.0)
[2017-11-17 11:24] LABS: BEDSIDE GLUCOSE 127 MG/DL (83-110)
[2017-11-17 16:40] LABS: BEDSIDE GLUCOSE 168 MG/DL (83-110)
[2017-11-17] MEDS: WARFARIN SOD 3 MG TAB PO (18:21)
[2017-11-17 20:44] LABS: BEDSIDE GLUCOSE 179 MG/DL (83-110)
[2017-11-17] MEDS: traZODone 50 MG TAB PO (20:50)
[2017-11-17] MEDS: FAMOTIDINE 20 MG TAB PO (20:50)
[2017-11-18] MEDS: FUROSEMIDE 100 MG/10 ML VIAL (J1940) IV (06:22)
[2017-11-18] MEDS: SLF 3 ML SYR IV ×3 (06:22→21:13)
[2017-11-18] MEDS: oxyCODONE 5MG TAB PO ×2 (06:57→12:16)
[2017-11-18 08:15] LABS: HEMATOCRIT 27.2 % (42.0-52.0); HEMOGLOBIN 8.8 g/dl (13.5-17.5); MEAN CORPUSCULAR HEMOGLOBIN 28.9 pg (27.0-33.0); MEAN CORPUSCULAR HGB CONC 32.4 g/dl (32.0-36.5); MEAN CORPUSCULAR VOLUME 89.5 fl (80.0-96.0); PLATELET COUNT, AUTOMATED 515 10^3/uL (150-450); RED BLOOD COUNT 3.04 10^6/uL (4.30-6.10); RED CELL DISTRIBUTION WIDTH 15.9 % (11.5-14.5); WHITE BLOOD COUNT 12.2 10^3/uL (4.0-10.0)
[2017-11-18 08:26] LABS: INR 2.69; PROTHROMBIN TIME 29.7 SECONDS (12.4-14.5)
[2017-11-18] MEDS: NYSTATIN 500,000 U/5 ML SUSP UDC PO ×4 (08:54→21:00)
[2017-11-18] MEDS: FEBUXOSTAT 40 MG TABLET (ULORIC) PO (08:54)
[2017-11-18] MEDS: FERROUS GLUCONATE 324 MG TAB PO (08:54)
[2017-11-18] MEDS: OMEPRAZOLE 20 MG CAP PO ×2 (08:55→21:11)
[2017-11-18] MEDS: MULTIVITAMINS/MINERALS THERAP 1 TAB PO ×2 (08:55→21:12)
[2017-11-18] MEDS: predniSONE 20 MG TAB PO (08:55)
[2017-11-18] MEDS: GABAPENTIN 300 MG CAP PO ×2 (08:55→21:11)
[2017-11-18] MEDS: ASPIRIN 81 MG ENTERIC TAB PO (08:55)
[2017-11-18] MEDS: ATORVASTATIN 20 MG TAB PO (08:55)
[2017-11-18 08:56] LABS: ALBUMIN 2.2 GM/DL (3.2-5.2); ANION GAP 5 MEQ/L (8-16); BLOOD UREA NITROGEN 57 MG/DL (7-18); CALCIUM LEVEL 8.1 MG/DL (8.8-10.2); CARBON DIOXIDE LEVEL 32 MEQ/L (21-32); CHLORIDE LEVEL 103 MEQ/L (98-107); CREATININE FOR GFR 1.59 MG/DL (0.70-1.30); GLOMERULAR FILTRATION RATE 45.8 (>42); GLUCOSE, FASTING 103 MG/DL (70-100); PHOSPHORUS LEVEL 4.4 MG/DL (2.5-4.9); POTASSIUM SERUM 4.4 MEQ/L (3.5-5.1); SODIUM LEVEL 140 MEQ/L (136-145)
[2017-11-18] MEDS: NEORAL 100 MG CAP (J7502)(C9438) PO ×2 (08:56→21:12)
[2017-11-18] MEDS: oxyCODONE 10 MG CR TAB PO ×2 (08:56→21:13)
[2017-11-18] MEDS: FINASTERIDE 5 MG TAB PO (08:57)
[2017-11-18] MEDS: TAMSULOSIN 0.4 MG CAP PO (08:57)
[2017-11-18] MEDS: BACTRIM 160MG/800MG DS TAB PO (08:57)
[2017-11-18] MEDS: LACTOBACILLUS ACIDOPHILUS CAP (BACID) PO (08:57)
[2017-11-18] MEDS: POTASSIUM CHLORIDE 10 MEQ SR TABLET PO (08:58)
[2017-11-18] MEDS: FLUoxetine 20 MG CAP PO (08:58)
[2017-11-18] MEDS: CYANOCOBALAMIN 500 MCG TAB PO ×3 (08:58→18:00)
[2017-11-18] MEDS: IPRATROPIUM 0.5MG/ALBUTEROL 2.5MG INH SOL UD 3ML (DUONEB)(J7620) NEB ×2 (09:06→23:59)
[2017-11-18] MEDS: SYMBICORT 80/4.5MCG INHALER 6GM INH ×2 (09:06→21:43)
[2017-11-18] MEDS: HumaLOG INSULIN (NovoLOG) PER UNIT SC ×4 (09:27→21:00)
[2017-11-18 11:19] LABS: BEDSIDE GLUCOSE 113 MG/DL (83-110)
[2017-11-18] MEDS: TORSEMIDE (DEMADEX) 50 MG PER 1/2 TAB PO (17:00)
[2017-11-18] MEDS: WARFARIN SOD 4 MG TAB PO (17:00)
[2017-11-18] MEDS: FAMOTIDINE 20 MG TAB PO (21:11)
[2017-11-18] MEDS: traZODone 50 MG TAB PO (21:11)
[2017-11-19 00:07] LABS: QUANTIFERON GOLD TB Negative (Negative); TB Test (QFT) Antigen 0.14 IU/mL (.); TB Test (QFT) Antigen Minus Ni <0.01 IU/mL (.); TB Test (QFT) Mitogen 6.65 IU/mL (.); TB Test (QFT) Nil 0.15 IU/mL (.)
[2017-11-19] MEDS: SLF 3 ML SYR IV ×3 (05:34→20:51)
[2017-11-19 05:56] LABS: HEMATOCRIT 26.1 % (42.0-52.0); HEMOGLOBIN 8.4 g/dl (13.5-17.5); MEAN CORPUSCULAR HGB CONC 32.2 g/dl (32.0-36.5); PLATELET COUNT, AUTOMATED 488 10^3/uL (150-450); WHITE BLOOD COUNT 11.2 10^3/uL (4.0-10.0)
[2017-11-19 06:01] LABS: ALBUMIN 2.1 GM/DL (3.2-5.2); ANION GAP 4 MEQ/L (8-16); BLOOD UREA NITROGEN 62 MG/DL (7-18); CALCIUM LEVEL 8.1 MG/DL (8.8-10.2); CARBON DIOXIDE LEVEL 31 MEQ/L (21-32); CHLORIDE LEVEL 104 MEQ/L (98-107); CREATININE FOR GFR 1.84 MG/DL (0.70-1.30); GLOMERULAR FILTRATION RATE 38.7 (>42); GLUCOSE, FASTING 120 MG/DL (70-100); PHOSPHORUS LEVEL 4.1 MG/DL (2.5-4.9); POTASSIUM SERUM 4.2 MEQ/L (3.5-5.1); SODIUM LEVEL 139 MEQ/L (136-145)
[2017-11-19 06:06] LABS: INR 2.61
[2017-11-19 06:14] LABS: ALBUMIN 2.1 GM/DL (3.2-5.2); ALBUMIN/GLOBULIN RATIO 0.75 (1.00-1.93); ALKALINE PHOSPHATASE 107 U/L (45-117); ALT/SGPT 33 U/L (12-78); ANION GAP 7 MEQ/L (8-16); AST/SGOT 18 U/L (7-37); BILIRUBIN,TOTAL 0.5 MG/DL (0.2-1.0); BLOOD UREA NITROGEN 61 MG/DL (7-18); CALCIUM LEVEL 7.7 MG/DL (8.8-10.2); CARBON DIOXIDE LEVEL 30 MEQ/L (21-32); CHLORIDE LEVEL 104 MEQ/L (98-107); CREATININE FOR GFR 1.83 MG/DL (0.70-1.30); GLOMERULAR FILTRATION RATE 38.9 (>42); GLUCOSE, FASTING 121 MG/DL (70-100); POTASSIUM SERUM 4.3 MEQ/L (3.5-5.1); SODIUM LEVEL 141 MEQ/L (136-145); TOTAL PROTEIN 4.9 GM/DL (6.4-8.2)
[2017-11-19] MEDS: oxyCODONE 5MG TAB PO ×3 (06:28→17:52)
[2017-11-19] MEDS: IPRATROPIUM 0.5MG/ALBUTEROL 2.5MG INH SOL UD 3ML (DUONEB)(J7620) NEB ×3 (07:52→16:23)
[2017-11-19 08:06] LABS: CYCLOSPORINE LABCORP 112 ng/mL (100-400)
[2017-11-19] MEDS: SYMBICORT 80/4.5MCG INHALER 6GM INH ×2 (08:42→21:33)
[2017-11-19] MEDS: GABAPENTIN 300 MG CAP PO ×2 (08:53→20:17)
[2017-11-19] MEDS: HumaLOG INSULIN (NovoLOG) PER UNIT SC ×4 (08:53→20:50)
[2017-11-19] MEDS: ASPIRIN 81 MG ENTERIC TAB PO (08:53)
[2017-11-19] MEDS: NYSTATIN 500,000 U/5 ML SUSP UDC PO ×4 (08:53→20:19)
[2017-11-19] MEDS: TORSEMIDE (DEMADEX) 50 MG PER 1/2 TAB PO ×2 (08:54→17:08)
[2017-11-19] MEDS: FLUoxetine 20 MG CAP PO (08:55)
[2017-11-19] MEDS: predniSONE 20 MG TAB PO (08:55)
[2017-11-19] MEDS: MULTIVITAMINS/MINERALS THERAP 1 TAB PO ×2 (08:55→20:17)
[2017-11-19] MEDS: POTASSIUM CHLORIDE 10 MEQ SR TABLET PO (08:55)
[2017-11-19] MEDS: TAMSULOSIN 0.4 MG CAP PO (08:55)
[2017-11-19] MEDS: FEBUXOSTAT 40 MG TABLET (ULORIC) PO (08:55)
[2017-11-19] MEDS: oxyCODONE 10 MG CR TAB PO ×2 (08:55→20:18)
[2017-11-19] MEDS: ATORVASTATIN 20 MG TAB PO (08:56)
[2017-11-19] MEDS: OMEPRAZOLE 20 MG CAP PO ×2 (08:56→20:19)
[2017-11-19] MEDS: FERROUS GLUCONATE 324 MG TAB PO (08:56)
[2017-11-19] MEDS: CYANOCOBALAMIN 500 MCG TAB PO ×3 (08:56→17:08)
[2017-11-19] MEDS: FINASTERIDE 5 MG TAB PO (08:56)
[2017-11-19] MEDS: NEORAL 100 MG CAP (J7502)(C9438) PO ×2 (08:57→20:19)
[2017-11-19] MEDS: LACTOBACILLUS ACIDOPHILUS CAP (BACID) PO (08:57)
[2017-11-19 10:11] LABS: BEDSIDE GLUCOSE 179 MG/DL (83-110)
[2017-11-19 10:12] LABS: BEDSIDE GLUCOSE 138 MG/DL (83-110)
[2017-11-19] MEDS: CALCIUM/VITAMIN D 500 MG TAB PO ×2 (12:09→20:19)
[2017-11-19] MEDS: metOLazone 5 MG TAB PO (12:09)
[2017-11-19 14:41] LABS: BEDSIDE GLUCOSE 83 MG/DL (83-110)
[2017-11-19] MEDS: WARFARIN SOD 4 MG TAB PO (17:09)
[2017-11-19 20:05] LABS: BEDSIDE GLUCOSE 192 MG/DL (83-110)
[2017-11-19] MEDS: traZODone 50 MG TAB PO (20:19)
[2017-11-19] MEDS: FAMOTIDINE 20 MG TAB PO (20:19)
[2017-11-19 20:45] LABS: BEDSIDE GLUCOSE 142 MG/DL (83-110)
[2017-11-20] MEDS: oxyCODONE 5MG TAB PO ×2 (01:26→11:39)
[2017-11-20] MEDS: SLF 3 ML SYR IV ×2 (05:18→14:00)
[2017-11-20 06:14] LABS: HEMATOCRIT 27.4 % (42.0-52.0); HEMOGLOBIN 8.7 g/dl (13.5-17.5); MEAN CORPUSCULAR HEMOGLOBIN 28.5 pg (27.0-33.0); MEAN CORPUSCULAR HGB CONC 31.8 g/dl (32.0-36.5); MEAN CORPUSCULAR VOLUME 89.8 fl (80.0-96.0); PLATELET COUNT, AUTOMATED 561 10^3/uL (150-450); RED BLOOD COUNT 3.05 10^6/uL (4.30-6.10); RED CELL DISTRIBUTION WIDTH 15.9 % (11.5-14.5); WHITE BLOOD COUNT 13.8 10^3/uL (4.0-10.0)
[2017-11-20 06:24] LABS: PROTHROMBIN TIME 25.3 SECONDS (12.4-14.5)
[2017-11-20 06:40] LABS: ALBUMIN 2.3 GM/DL (3.2-5.2); ALKALINE PHOSPHATASE 96 U/L (45-117); ALT/SGPT 32 U/L (12-78); ANION GAP 4 MEQ/L (8-16); AST/SGOT 21 U/L (7-37); BILIRUBIN,TOTAL 0.6 MG/DL (0.2-1.0); BLOOD UREA NITROGEN 76 MG/DL (7-18); CALCIUM LEVEL 8.4 MG/DL (8.8-10.2); CARBON DIOXIDE LEVEL 34 MEQ/L (21-32); CHLORIDE LEVEL 102 MEQ/L (98-107); CREATININE FOR GFR 1.89 MG/DL (0.70-1.30); GLOMERULAR FILTRATION RATE 37.5 (>42); GLUCOSE, FASTING 105 MG/DL (70-100); PHOSPHORUS LEVEL 3.4 MG/DL (2.5-4.9); POTASSIUM SERUM 3.8 MEQ/L (3.5-5.1); SODIUM LEVEL 140 MEQ/L (136-145); TOTAL PROTEIN 5.6 GM/DL (6.4-8.2)
[2017-11-20] MEDS: SYMBICORT 80/4.5MCG INHALER 6GM INH (07:22)
[2017-11-20] MEDS: IPRATROPIUM 0.5MG/ALBUTEROL 2.5MG INH SOL UD 3ML (DUONEB)(J7620) NEB ×3 (07:22→15:32)
[2017-11-20] MEDS: FERROUS GLUCONATE 324 MG TAB PO (08:48)
[2017-11-20] MEDS: CALCIUM/VITAMIN D 500 MG TAB PO (08:48)
[2017-11-20] MEDS: BACTRIM 160MG/800MG DS TAB PO (08:48)
[2017-11-20] MEDS: ASPIRIN 81 MG ENTERIC TAB PO (08:48)
[2017-11-20] MEDS: TAMSULOSIN 0.4 MG CAP PO (08:48)
[2017-11-20] MEDS: TORSEMIDE (DEMADEX) 50 MG PER 1/2 TAB PO (08:48)
[2017-11-20] MEDS: FINASTERIDE 5 MG TAB PO (08:48)
[2017-11-20] MEDS: MULTIVITAMINS/MINERALS THERAP 1 TAB PO (08:48)
[2017-11-20] MEDS: POTASSIUM CHLORIDE 10 MEQ SR TABLET PO (08:49)
[2017-11-20] MEDS: FEBUXOSTAT 40 MG TABLET (ULORIC) PO (08:49)
[2017-11-20] MEDS: FLUoxetine 20 MG CAP PO (08:49)
[2017-11-20] MEDS: NEORAL 100 MG CAP (J7502)(C9438) PO (08:49)
[2017-11-20] MEDS: predniSONE 20 MG TAB PO (08:49)
[2017-11-20] MEDS: CYANOCOBALAMIN 500 MCG TAB PO ×2 (08:49→12:49)
[2017-11-20] MEDS: GABAPENTIN 300 MG CAP PO (08:50)
[2017-11-20] MEDS: LACTOBACILLUS ACIDOPHILUS CAP (BACID) PO (08:50)
[2017-11-20] MEDS: oxyCODONE 10 MG CR TAB PO (08:50)
[2017-11-20] MEDS: ATORVASTATIN 20 MG TAB PO (08:50)
[2017-11-20] MEDS: OMEPRAZOLE 20 MG CAP PO (08:50)
[2017-11-20] MEDS: NYSTATIN 500,000 U/5 ML SUSP UDC PO ×2 (08:50→12:48)
[2017-11-20] MEDS: HumaLOG INSULIN (NovoLOG) PER UNIT SC ×2 (08:52→12:49)
[2017-11-20 11:13] LABS: TOTAL PROTEIN,RANDOM URINE 21.7 MG/DL (0.0-12.0)
[2017-11-20] MEDS: metOLazone 2.5 MG TAB PO (11:39)
[2017-11-21 06:05] LABS: BEDSIDE GLUCOSE 125 MG/DL (83-110)
== END 2017-11-20 15:47 | disposition home or self-care (01) | DRG 545 ==
LOC: M MSPAV 11-07 16:57 → M ED 05:49 → M ED INP 08:42 → M ICU 10:06 → M PCU 19:34
PROC: 30233N1 Transfusion of Nonautologous Red Blood Cells into Peripheral Vein, Percutaneous Approach (ICD-10-PCS; principal; 2017-11-13)
DX: M32.14 Glomerular disease in systemic lupus erythematosus (principal); I50.33 Acute on chronic diastolic (congestive) heart failure; I16.1 Hypertensive emergency; N02.2 Recurrent and persistent hematuria with diffuse membranous glomerulonephritis; E87.0 Hyperosmolality and hypernatremia; Z68.41 Body mass index [BMI] 40.0-44.9, adult; N04.9 Nephrotic syndrome with unspecified morphologic changes; A04.72 Enterocolitis due to Clostridium difficile, not specified as recurrent; J90 Pleural effusion, not elsewhere classified; N17.9 Acute kidney failure, unspecified; I11.0 Hypertensive heart disease with heart failure; E66.9 Obesity, unspecified; E11.9 Type 2 diabetes mellitus without complications; D50.9 Iron deficiency anemia, unspecified; I48.2 Chronic atrial fibrillation; Z79.899 Other long term (current) drug therapy; Z79.82 Long term (current) use of aspirin; I25.10 Atherosclerotic heart disease of native coronary artery without angina pectoris; Z95.2 Presence of prosthetic heart valve; Z87.891 Personal history of nicotine dependence; M06.9 Rheumatoid arthritis, unspecified; F32.9 Major depressive disorder, single episode, unspecified; N40.0 Benign prostatic hyperplasia without lower urinary tract symptoms; Z79.01 Long term (current) use of anticoagulants; Z79.52 Long term (current) use of systemic steroids; E78.5 Hyperlipidemia, unspecified; E87.6 Hypokalemia; Z96.651 Presence of right artificial knee joint; Z96.652 Presence of left artificial knee joint

== ENCOUNTER 2017-12-15 10:25 | Outpatient (CLI) | payer OTHER ==
[2017-12-15] MEDS: diphenhydrAMINE 25 MG CAP PO (11:45)
[2017-12-15] MEDS: FUROSEMIDE 40 MG/4 ML VIAL (J1940) IV ×2 (13:12→15:20)
== END 2017-12-15 16:07 | disposition home or self-care (01) ==
LOC: M OPCLI4PR 10:25 → M MS4PR 10:31 → M OPCLI4PR 16:07
DX: D50.9 Iron deficiency anemia, unspecified (principal); N04.2 Nephrotic syndrome with diffuse membranous glomerulonephritis; Z79.82 Long term (current) use of aspirin; Z79.899 Other long term (current) drug therapy; Z79.01 Long term (current) use of anticoagulants; Z88.8 Allergy status to other drugs, medicaments and biological substances
CPT/HCPCS: 36430

== ENCOUNTER 2017-12-25 11:56 | Outpatient (CLI) | payer OTHER ==
[2017-12-25] MEDS: FUROSEMIDE 40 MG/4 ML VIAL (J1940) IV (13:30)
[2017-12-25] MEDS: diphenhydrAMINE 25 MG CAP PO (14:45)
== END 2017-12-25 19:35 | disposition home or self-care (01) ==
LOC: M OPCLI5PR 11:56 → M MS5PR 12:12 → M OPCLI5PR 19:35
DX: D50.9 Iron deficiency anemia, unspecified (principal); Z79.01 Long term (current) use of anticoagulants; Z79.899 Other long term (current) drug therapy
CPT/HCPCS: 36430

== ENCOUNTER → 2017-12-25 | Outpatient (REF) | payer OTHER ==
[2017-12-25 16:06] LABS: IMMEDIATE SPIN CROSSMATCH 1 1
[2017-12-29 00:08] LABS: CYCLOSPORINE LABCORP 84 ng/mL (100-400)
== END ==
LOC: M LAB REF 13:27
PROVIDERS: Pediatrics
DX: N04.2 Nephrotic syndrome with diffuse membranous glomerulonephritis (principal)
CPT/HCPCS: 80158

== ENCOUNTER 2017-12-28 14:38 | Inpatient (IN) | payer OTHER ==
[2017-12-28] MEDS: IPRATROPIUM 0.5MG/ALBUTEROL 2.5MG INH SOL UD 3ML (DUONEB)(J7620) NEB ×2 (15:10→23:44)
[2017-12-28 15:14] LABS: BASO % 0.1 % (0.0-1.0); EOS % 0.1 % (0.0-3.0); HEMATOCRIT 28.6 % (42.0-52.0); HEMOGLOBIN 9.1 g/dl (13.5-17.5); IMMATURE GRANULOCYTE % 0.6 % (0-3.0); LYMPH # 0.4 10^3/uL (1.5-4.5); LYMPH % 2.7 % (24.0-44.0); MEAN CORPUSCULAR HEMOGLOBIN 30.2 pg (27.0-33.0); MEAN CORPUSCULAR HGB CONC 31.8 g/dl (32.0-36.5); MONO # 0.2 10^3/uL (0.0-0.8); MONO % 1.5 % (0.0-5.0); NEUTROPHILS # 13.5 10^3/uL (1.8-7.7); PLATELET COUNT, AUTOMATED 450 10^3/uL (150-450); RED BLOOD COUNT 3.01 10^6/uL (4.30-6.10); RED CELL DISTRIBUTION WIDTH 16.7 % (11.5-14.5); WHITE BLOOD COUNT 14.3 10^3/uL (4.0-10.0)
[2017-12-28 15:25] LABS: ABG BASE EXCESS 4.4 (-2.0-2.0); ABG HCO3 28.9 MEQ/L (22.0-26.0); ABG O2 SATURATION 98.5 % (95.0-99.0); ABG PARTIAL PRESSURE CO2 43.2 mmHg (35.0-45.0); ABG PARTIAL PRESSURE O2 121.2 mmHg (75.0-100.0); ABG STANDARD HCO3 28.5 MEQ/L (22.0-26.0); ABG TOTAL CO2 30.3 MEQ/L (23.0-31.0); ABG pH (ARTERIAL) 7.444 UNITS (7.350-7.450)
[2017-12-28 15:27] LABS: INR 3.19; PARTIAL THROMBOPLASTIN TIME 36.7 SECONDS (25.4-37.6); PROTHROMBIN TIME 33.4 SECONDS (12.1-14.4)
[2017-12-28 15:40] LABS: LACTIC ACID SEPSIS PROTOCOL 2.4 MMOL/L (0.4-2.0)
[2017-12-28 15:43] LABS: ALKALINE PHOSPHATASE 73 U/L (45-117); ALT/SGPT 33 U/L (12-78); AST/SGOT 19 U/L (7-37); BILIRUBIN,DIRECT 0.3 MG/DL (0.0-0.2); BILIRUBIN,TOTAL 0.7 MG/DL (0.2-1.0); BLOOD UREA NITROGEN 56 MG/DL (7-18); CALCIUM LEVEL 7.6 MG/DL (8.8-10.2); CARBON DIOXIDE LEVEL 31 MEQ/L (21-32); CHLORIDE LEVEL 105 MEQ/L (98-107); CPK CREATINE PHOSPHOKINASE 35 U/L (39-308); FREE T4 0.95 NG/DL (0.76-1.46); GLUCOSE, FASTING 212 MG/DL (70-100); POTASSIUM SERUM 3.5 MEQ/L (3.5-5.1); SODIUM LEVEL 145 MEQ/L (136-145); TOTAL PROTEIN 4.9 GM/DL (6.4-8.2); TROPONIN I 0.03 NG/ML (< 0.10)
[2017-12-28 15:48] LABS: CK-MB VALUE MASS 1.7 NG/ML (<3.6); MB/CK RELATIVE INDEX 4.85 (< OR =4); NT-PRO BNP 9165 PG/ML (<125)
[2017-12-28] MEDS: PIPERACILLIN/TAZOBACTAM SOD 3.375 GM in D5W MINI-BAG PLUS 50 ML IV (17:19)
[2017-12-28 17:53] LABS: ANION GAP 9 MEQ/L (8-16)
[2017-12-28 17:54] LABS: ALBUMIN 2.3 GM/DL (3.2-5.2); ALBUMIN/GLOBULIN RATIO 0.88 (1.00-1.93)
[2017-12-28] MEDS: VANCOMYCIN HCL 1,000 MG, VIAL MATE ADAPTER 1 EACH in D5W 250 ML IV (17:58)
[2017-12-28] MEDS: ANEXSIA, NORCO 7.5MG/325MG TABLET(HYDROCODONE/APAP) PO (18:44)
[2017-12-28] MEDS ORDERED: FAMOTIDINE 20 MG TAB PO (19:45)
[2017-12-28] MEDS ORDERED: LACTIC ACID 12% LOTION 225 GM BTL TOP (19:45)
[2017-12-28] MEDS ORDERED: POLYVINYL ALCOHOL OPHTH SOLN 15 ML(LIQUITEARS) OU (19:45)
[2017-12-28] MEDS ORDERED: NS 1,000 ML IV (19:52)
[2017-12-28] MEDS ORDERED: IPRATROPIUM 0.5MG/ALBUTEROL 2.5MG INH SOL UD 3ML (DUONEB)(J7620) NEB (20:00)
[2017-12-28] MEDS: hydrALAZINE INJ 20 MG/ML VIAL IV (20:16)
[2017-12-28] MEDS ORDERED: PILL CRUSHER/CUTTER 1 EACH XX (21:00)
[2017-12-28] MEDS: TORSEMIDE (DEMADEX) 50 MG PER 1/2 TAB PO (23:00)
[2017-12-28] MEDS: NEORAL 100 MG CAP (J7502)(C9438) PO (23:00)
[2017-12-28] MEDS: AZITHROMYCIN INJ 500 MG, VIAL MATE ADAPTER 1 EACH in D5W 250 ML IV (23:00)
[2017-12-28] MEDS ORDERED: PIPERACILLIN/TAZOBACTAM SOD 4.5 GM in D5W 50 ML IV (23:00)
[2017-12-28] MEDS: GABAPENTIN 300 MG CAP PO (23:00)
[2017-12-28] MEDS: OMEPRAZOLE 20 MG CAP PO (23:01)
[2017-12-28] MEDS: MULTIVITAMINS/MINERALS THERAP 1 TAB PO (23:01)
[2017-12-28] MEDS: HYDROcodone/APAP LIQUID 7.5-325MG 15ML UDC (LORTAB ELIXIR) PO (23:27)
[2017-12-29] MEDS: PIPERACILLIN/TAZOBACTAM SOD 4.5 GM in D5W 50 ML IV ×5 (01:45→22:52)
[2017-12-29 06:41] LABS: BASO % 0.2 % (0.0-1.0); EOS # 0.1 10^3/uL (0.0-0.50); HEMATOCRIT 31.2 % (42.0-52.0); IMMATURE GRANULOCYTE % 0.6 % (0-3.0); LYMPH # 1.4 10^3/uL (1.5-4.5); LYMPH % 11.1 % (24.0-44.0); MEAN CORPUSCULAR HEMOGLOBIN 29.4 pg (27.0-33.0); MEAN CORPUSCULAR HGB CONC 32.1 g/dl (32.0-36.5); MEAN CORPUSCULAR VOLUME 91.8 fl (80.0-96.0); MONO # 1.1 10^3/uL (0.0-0.8); MONO % 8.8 % (0.0-5.0); NEUTROPHILS # 10.2 10^3/uL (1.8-7.7); NEUTROPHILS % 78.3 % (36.0-66.0); PLATELET COUNT, AUTOMATED 501 10^3/uL (150-450); RED CELL DISTRIBUTION WIDTH 16.2 % (11.5-14.5)
[2017-12-29 06:53] LABS: INR 2.81; PROTHROMBIN TIME 30.2 SECONDS (12.1-14.4)
[2017-12-29 06:55] LABS: ANION GAP 8 MEQ/L (8-16); BLOOD UREA NITROGEN 51 MG/DL (7-18); CALCIUM LEVEL 8.1 MG/DL (8.8-10.2); CARBON DIOXIDE LEVEL 34 MEQ/L (21-32); CHLORIDE LEVEL 105 MEQ/L (98-107); CREATININE FOR GFR 1.22 MG/DL (0.70-1.30); GLOMERULAR FILTRATION RATE > 60.0 (>42); GLUCOSE, FASTING 90 MG/DL (70-100); POTASSIUM SERUM 3.3 MEQ/L (3.5-5.1); SODIUM LEVEL 147 MEQ/L (136-145)
[2017-12-29 07:04] LABS: INFLUENZA A AMPLIFICATION NEGATIVE (NEGATIVE); INFLUENZA B AMPLIFICATION NEGATIVE (NEGATIVE)
[2017-12-29] MEDS: IPRATROPIUM 0.5MG/ALBUTEROL 2.5MG INH SOL UD 3ML (DUONEB)(J7620) NEB ×3 (08:52→20:55)
[2017-12-29] MEDS: predniSONE 10 MG TAB PO (08:57)
[2017-12-29] MEDS: GABAPENTIN 300 MG CAP PO ×3 (08:57→21:08)
[2017-12-29] MEDS: TAMSULOSIN 0.4 MG CAP PO (08:57)
[2017-12-29] MEDS: FINASTERIDE 5 MG TAB PO (08:57)
[2017-12-29] MEDS: ATORVASTATIN 20 MG TAB PO (08:57)
[2017-12-29] MEDS: OMEPRAZOLE 20 MG CAP PO ×2 (08:57→21:08)
[2017-12-29] MEDS: CYANOCOBALAMIN 500 MCG TAB PO ×3 (08:57→17:28)
[2017-12-29] MEDS: POTASSIUM CHLORIDE 10 MEQ SR TABLET PO (08:57)
[2017-12-29] MEDS: MULTIVITAMINS/MINERALS THERAP 1 TAB PO ×2 (08:57→21:08)
[2017-12-29] MEDS: FEBUXOSTAT 40 MG TABLET (ULORIC) PO (08:57)
[2017-12-29] MEDS: TORSEMIDE (DEMADEX) 50 MG PER 1/2 TAB PO ×2 (08:58→21:08)
[2017-12-29] MEDS: FLUoxetine 20 MG CAP PO (08:58)
[2017-12-29] MEDS: HYDROcodone/APAP LIQUID 7.5-325MG 15ML UDC (LORTAB ELIXIR) PO ×2 (09:16→17:28)
[2017-12-29] MEDS: AZITHROMYCIN INJ 500 MG, VIAL MATE ADAPTER 1 EACH in D5W 250 ML IV (21:08)
[2017-12-29] MEDS: ACETAMINOPHEN 500 MG TAB PO (21:14)
[2017-12-30] MEDS: IPRATROPIUM 0.5MG/ALBUTEROL 2.5MG INH SOL UD 3ML (DUONEB)(J7620) NEB ×4 (02:00→20:42)
[2017-12-30] MEDS: PIPERACILLIN/TAZOBACTAM SOD 4.5 GM in D5W 50 ML IV ×4 (05:30→23:15)
[2017-12-30] MEDS: HYDROcodone/APAP LIQUID 7.5-325MG 15ML UDC (LORTAB ELIXIR) PO ×3 (06:40→21:05)
[2017-12-30 07:08] LABS: INR 2.39; PROTHROMBIN TIME 26.5 SECONDS (12.1-14.4)
[2017-12-30 08:54] LABS: HEMATOCRIT 30.4 % (42.0-52.0); HEMOGLOBIN 9.5 g/dl (13.5-17.5); MEAN CORPUSCULAR HEMOGLOBIN 29.3 pg (27.0-33.0); MEAN CORPUSCULAR HGB CONC 31.3 g/dl (32.0-36.5); MEAN CORPUSCULAR VOLUME 93.8 fl (80.0-96.0); PLATELET COUNT, AUTOMATED 480 10^3/uL (150-450); RED BLOOD COUNT 3.24 10^6/uL (4.30-6.10); RED CELL DISTRIBUTION WIDTH 16.1 % (11.5-14.5); WHITE BLOOD COUNT 14.4 10^3/uL (4.0-10.0)
[2017-12-30] MEDS: OMEPRAZOLE 20 MG CAP PO ×2 (08:54→21:04)
[2017-12-30] MEDS: TAMSULOSIN 0.4 MG CAP PO (08:54)
[2017-12-30] MEDS: FLUoxetine 20 MG CAP PO (08:54)
[2017-12-30] MEDS: predniSONE 10 MG TAB PO (08:54)
[2017-12-30] MEDS: CYANOCOBALAMIN 500 MCG TAB PO ×3 (08:54→17:50)
[2017-12-30] MEDS: GABAPENTIN 300 MG CAP PO ×3 (08:54→21:04)
[2017-12-30] MEDS: ATORVASTATIN 20 MG TAB PO (08:54)
[2017-12-30] MEDS: FINASTERIDE 5 MG TAB PO (08:54)
[2017-12-30] MEDS: TORSEMIDE (DEMADEX) 50 MG PER 1/2 TAB PO ×2 (08:54→21:04)
[2017-12-30] MEDS: MULTIVITAMINS/MINERALS THERAP 1 TAB PO ×2 (08:55→21:04)
[2017-12-30] MEDS: FEBUXOSTAT 40 MG TABLET (ULORIC) PO (08:55)
[2017-12-30 09:06] LABS: ANION GAP 4 MEQ/L (8-16); BLOOD UREA NITROGEN 50 MG/DL (7-18); CALCIUM LEVEL 8.1 MG/DL (8.8-10.2); CARBON DIOXIDE LEVEL 35 MEQ/L (21-32); CHLORIDE LEVEL 107 MEQ/L (98-107); CREATININE FOR GFR 1.46 MG/DL (0.70-1.30); GLOMERULAR FILTRATION RATE 50.5 (>42); GLUCOSE, FASTING 96 MG/DL (70-100); POTASSIUM SERUM 4.2 MEQ/L (3.5-5.1); SODIUM LEVEL 146 MEQ/L (136-145)
[2017-12-30] MEDS: zolPIDEM TARTRATE 5 MG TAB PO (21:04)
[2017-12-30] MEDS: AZITHROMYCIN INJ 500 MG, VIAL MATE ADAPTER 1 EACH in D5W 250 ML IV (21:04)
[2017-12-31] MEDS: IPRATROPIUM 0.5MG/ALBUTEROL 2.5MG INH SOL UD 3ML (DUONEB)(J7620) NEB ×4 (01:44→20:00)
[2017-12-31] MEDS: PIPERACILLIN/TAZOBACTAM SOD 4.5 GM in D5W 50 ML IV ×4 (04:34→23:31)
[2017-12-31] MEDS: HYDROcodone/APAP LIQUID 7.5-325MG 15ML UDC (LORTAB ELIXIR) PO ×3 (06:31→18:47)
[2017-12-31 07:29] LABS: HEMATOCRIT 30.1 % (42.0-52.0); HEMOGLOBIN 9.4 g/dl (13.5-17.5); MEAN CORPUSCULAR HEMOGLOBIN 29.6 pg (27.0-33.0); MEAN CORPUSCULAR HGB CONC 31.2 g/dl (32.0-36.5); MEAN CORPUSCULAR VOLUME 94.7 fl (80.0-96.0); PLATELET COUNT, AUTOMATED 437 10^3/uL (150-450); RED BLOOD COUNT 3.18 10^6/uL (4.30-6.10); WHITE BLOOD COUNT 16.4 10^3/uL (4.0-10.0)
[2017-12-31 07:48] LABS: INR 1.78
[2017-12-31 08:02] LABS: ANION GAP 10 MEQ/L (8-16); BLOOD UREA NITROGEN 47 MG/DL (7-18); CALCIUM LEVEL 8.1 MG/DL (8.8-10.2); CARBON DIOXIDE LEVEL 31 MEQ/L (21-32); CHLORIDE LEVEL 103 MEQ/L (98-107); CREATININE FOR GFR 1.55 MG/DL (0.70-1.30); GLOMERULAR FILTRATION RATE 47.2 (>42); GLUCOSE, FASTING 117 MG/DL (70-100); POTASSIUM SERUM 3.8 MEQ/L (3.5-5.1); SODIUM LEVEL 144 MEQ/L (136-145)
[2017-12-31] MEDS: TORSEMIDE (DEMADEX) 50 MG PER 1/2 TAB PO ×2 (09:41→20:30)
[2017-12-31] MEDS: FINASTERIDE 5 MG TAB PO (09:41)
[2017-12-31] MEDS: TAMSULOSIN 0.4 MG CAP PO (09:42)
[2017-12-31] MEDS: GABAPENTIN 300 MG CAP PO ×3 (09:42→20:31)
[2017-12-31] MEDS: FEBUXOSTAT 40 MG TABLET (ULORIC) PO (09:42)
[2017-12-31] MEDS: OMEPRAZOLE 20 MG CAP PO ×2 (09:42→20:30)
[2017-12-31] MEDS: predniSONE 10 MG TAB PO (09:43)
[2017-12-31] MEDS: FLUoxetine 20 MG CAP PO (09:43)
[2017-12-31] MEDS: ATORVASTATIN 20 MG TAB PO (09:43)
[2017-12-31] MEDS: MULTIVITAMINS/MINERALS THERAP 1 TAB PO ×2 (09:43→20:31)
[2017-12-31] MEDS: CYANOCOBALAMIN 500 MCG TAB PO ×3 (09:43→17:23)
[2017-12-31 14:44] LABS: BODY FLUID CULTURE Not Indicated (.); LEGIONELLA ANTIGEN URINE Negative (Negative); ORGANISM ID Not indicated. (.); SPECIMEN SOURCE Urine (.); URINE STREP PNEUMONIAE ANTIGEN Negative (Negative)
[2017-12-31 14:44] LABS: CYCLOSPORINE LABCORP 105 ng/mL (100-400)
[2017-12-31] MEDS: AZITHROMYCIN INJ 500 MG, VIAL MATE ADAPTER 1 EACH in D5W 250 ML IV (21:49)
[2017-12-31] MEDS: zolPIDEM TARTRATE 5 MG TAB PO (23:35)
[2018-01-01] MEDS: IPRATROPIUM 0.5MG/ALBUTEROL 2.5MG INH SOL UD 3ML (DUONEB)(J7620) NEB ×3 (02:00→14:00)
[2018-01-01] MEDS: PIPERACILLIN/TAZOBACTAM SOD 4.5 GM in D5W 50 ML IV ×2 (05:48→10:01)
[2018-01-01] MEDS: ACETAMINOPHEN 500 MG TAB PO (05:54)
[2018-01-01 06:14] LABS: HEMATOCRIT 27.5 % (42.0-52.0); HEMOGLOBIN 8.7 g/dl (13.5-17.5); MEAN CORPUSCULAR HEMOGLOBIN 29.4 pg (27.0-33.0); MEAN CORPUSCULAR HGB CONC 31.6 g/dl (32.0-36.5); MEAN CORPUSCULAR VOLUME 92.9 fl (80.0-96.0); PLATELET COUNT, AUTOMATED 357 10^3/uL (150-450); RED BLOOD COUNT 2.96 10^6/uL (4.30-6.10); RED CELL DISTRIBUTION WIDTH 15.9 % (11.5-14.5); WHITE BLOOD COUNT 14.6 10^3/uL (4.0-10.0)
[2018-01-01] MEDS: HYDROcodone/APAP LIQUID 7.5-325MG 15ML UDC (LORTAB ELIXIR) PO (06:32)
[2018-01-01 06:38] LABS: ANION GAP 7 MEQ/L (8-16); BLOOD UREA NITROGEN 43 MG/DL (7-18); CALCIUM LEVEL 7.8 MG/DL (8.8-10.2); CARBON DIOXIDE LEVEL 33 MEQ/L (21-32); CHLORIDE LEVEL 103 MEQ/L (98-107); CREATININE FOR GFR 1.36 MG/DL (0.70-1.30); GLOMERULAR FILTRATION RATE 54.8 (>42); GLUCOSE, FASTING 94 MG/DL (70-100); POTASSIUM SERUM 3.4 MEQ/L (3.5-5.1); SODIUM LEVEL 143 MEQ/L (136-145)
[2018-01-01 06:42] LABS: INR 1.47
[2018-01-01] MEDS: OMEPRAZOLE 20 MG CAP PO (08:01)
[2018-01-01] MEDS: CYANOCOBALAMIN 500 MCG TAB PO ×2 (08:01→11:20)
[2018-01-01] MEDS: ATORVASTATIN 20 MG TAB PO (08:01)
[2018-01-01] MEDS: MULTIVITAMINS/MINERALS THERAP 1 TAB PO (08:01)
[2018-01-01] MEDS: TAMSULOSIN 0.4 MG CAP PO (08:01)
[2018-01-01] MEDS: GABAPENTIN 300 MG CAP PO (08:01)
[2018-01-01] MEDS: FINASTERIDE 5 MG TAB PO (08:01)
[2018-01-01] MEDS: predniSONE 10 MG TAB PO (08:02)
[2018-01-01] MEDS: FLUoxetine 20 MG CAP PO (08:02)
[2018-01-01] MEDS: TORSEMIDE (DEMADEX) 50 MG PER 1/2 TAB PO (08:02)
[2018-01-01] MEDS: POTASSIUM CHLORIDE 10 MEQ SR TABLET PO (09:57)
[2018-01-01] MEDS: FEBUXOSTAT 40 MG TABLET (ULORIC) PO (11:19)
[2018-01-01] MEDS ORDERED: WARFARIN SOD 4 MG TAB PO (17:00)
== END 2018-01-01 14:10 | disposition home or self-care (01) | DRG 194 ==
LOC: M MSPAV 12-31 16:08 → M ED 14:38 → M ED INP 19:52 → M MS4PR 22:10
DX: J18.9 Pneumonia, unspecified organism (principal); I50.32 Chronic diastolic (congestive) heart failure; I13.0 Hypertensive heart and chronic kidney disease with heart failure and stage 1 through stage 4 chronic kidney disease, or unspecified chronic kidney disease; M32.14 Glomerular disease in systemic lupus erythematosus; J44.9 Chronic obstructive pulmonary disease, unspecified; E78.5 Hyperlipidemia, unspecified; M19.90 Unspecified osteoarthritis, unspecified site; M10.9 Gout, unspecified; D64.9 Anemia, unspecified; K21.9 Gastro-esophageal reflux disease without esophagitis; F41.9 Anxiety disorder, unspecified; E11.22 Type 2 diabetes mellitus with diabetic chronic kidney disease; I48.91 Unspecified atrial fibrillation; N18.3 Chronic kidney disease, stage 3 (moderate); N40.0 Benign prostatic hyperplasia without lower urinary tract symptoms; F32.9 Major depressive disorder, single episode, unspecified; Z87.891 Personal history of nicotine dependence; Z79.01 Long term (current) use of anticoagulants; Z79.52 Long term (current) use of systemic steroids; Z79.899 Other long term (current) drug therapy; Z88.8 Allergy status to other drugs, medicaments and biological substances; Y95 Nosocomial condition; Z79.891 Long term (current) use of opiate analgesic; Z99.81 Dependence on supplemental oxygen

== ENCOUNTER → 2018-01-07 | Outpatient (REF) | payer OTHER | LOC: M LAB REF 12:58 | DX: R91.8 Other nonspecific abnormal finding of lung field (principal) | CPT/HCPCS: 87205 ==

== ENCOUNTER → 2018-01-08 | Outpatient (REF) | payer OTHER ==
[2018-01-11 14:14] LABS: CYCLOSPORINE LABCORP None Detected ng/mL (100-400)
== END ==
LOC: M LAB REF 13:09
DX: M32.14 Glomerular disease in systemic lupus erythematosus (principal)
CPT/HCPCS: 80158

== ENCOUNTER → 2018-01-11 | Outpatient (CLI) | payer OTHER | LOC: M RAD 11:41 | DX: N04.9 Nephrotic syndrome with unspecified morphologic changes (principal) | CPT/HCPCS: 71250 ==

== ENCOUNTER 2018-01-15 11:20 | Inpatient (IN) | payer OTHER ==
[2018-01-15] MEDS: ATORVASTATIN 20 MG TAB PO (09:00)
[2018-01-15] MEDS: FLUoxetine 20 MG CAP PO (09:00)
[2018-01-15] MEDS: TAMSULOSIN 0.4 MG CAP PO (09:00)
[2018-01-15] MEDS: FUROSEMIDE 100 MG/10 ML VIAL (J1940) IV (13:05)
[2018-01-15 13:13] LABS: HEMATOCRIT 28.7 % (42.0-52.0); HEMOGLOBIN 8.6 g/dl (13.5-17.5); MEAN CORPUSCULAR HEMOGLOBIN 29.1 pg (27.0-33.0); PLATELET COUNT, AUTOMATED 259 10^3/uL (150-450); RED BLOOD COUNT 2.96 10^6/uL (4.30-6.10); RED CELL DISTRIBUTION WIDTH 16.3 % (11.5-14.5); WHITE BLOOD COUNT 11.8 10^3/uL (4.0-10.0)
[2018-01-15 13:32] LABS: CK-MB VALUE MASS 1.5 NG/ML (<3.6); CPK CREATINE PHOSPHOKINASE 34 U/L (39-308); MB/CK RELATIVE INDEX 4.41 (< OR =4); TROPONIN I 0.04 NG/ML (< 0.10)
[2018-01-15] MEDS ORDERED: IPRATROPIUM 0.5MG/ALBUTEROL 2.5MG INH SOL UD 3ML (DUONEB)(J7620) NEB (15:15)
[2018-01-15] MEDS ORDERED: POLYVINYL ALCOHOL OPHTH SOLN 15 ML(LIQUITEARS) OU (15:45)
[2018-01-15] MEDS ORDERED: FAMOTIDINE 20 MG TAB PO (15:45)
[2018-01-15 15:50] LABS: FERRITIN 148 NG/ML (26-388); IRON (FE) 22 UG/DL (65-175); PERCENT SATURATION 7.1 % (19.7-50.0); TOTAL IRON BINDING CAPACITY 311 UG/DL (250-450)
[2018-01-15] MEDS: GABAPENTIN 300 MG CAP PO ×2 (16:00→22:41)
[2018-01-15 16:26] LABS: VITAMIN B12 LEVEL 909 PG/ML (247-911)
[2018-01-15 16:27] LABS: FOLATE 18.9 NG/ML (>5.4)
[2018-01-15] MEDS ORDERED: ALBUTEROL 90 MCG/ACT 8GM HFA INHALER INH (17:00)
[2018-01-15] MEDS ORDERED: LACTIC ACID 12% LOTION 225 GM BTL TOP (17:00)
[2018-01-15] MEDS: HYDROcodone/APAP LIQUID 7.5-325MG 15ML UDC (LORTAB ELIXIR) PO (17:26)
[2018-01-15] MEDS: FUROSEMIDE 40 MG/4 ML VIAL (J1940) IV ×2 (18:00→23:50)
[2018-01-15] MEDS: CYANOCOBALAMIN 500 MCG TAB PO (18:00)
[2018-01-15 18:30] LABS: CK-MB VALUE MASS 1.4 NG/ML (<3.6); CPK CREATINE PHOSPHOKINASE 29 U/L (39-308); MB/CK RELATIVE INDEX 4.82 (< OR =4); TROPONIN I 0.05 NG/ML (< 0.10)
[2018-01-15] MEDS: IPRATROPIUM 0.5MG/ALBUTEROL 2.5MG INH SOL UD 3ML (DUONEB)(J7620) NEB (20:43)
[2018-01-15] MEDS: MULTIVITAMINS/MINERALS THERAP 1 TAB PO (22:41)
[2018-01-15] MEDS: POTASSIUM CHLORIDE 10 MEQ SR TABLET PO (22:41)
[2018-01-15] MEDS: SENOKOT S TAB PO (22:41)
[2018-01-15] MEDS: zolPIDEM TARTRATE 5 MG TAB PO (22:42)
[2018-01-15] MEDS: OMEPRAZOLE 20 MG CAP PO (22:42)
[2018-01-16] MEDS: HYDROcodone/APAP LIQUID 7.5-325MG 15ML UDC (LORTAB ELIXIR) PO ×4 (01:26→22:19)
[2018-01-16] MEDS: IPRATROPIUM 0.5MG/ALBUTEROL 2.5MG INH SOL UD 3ML (DUONEB)(J7620) NEB ×4 (02:00→19:23)
[2018-01-16 03:54] LABS: BASO % 0.1 % (0.0-1.0); EOS # 0.1 10^3/uL (0.0-0.50); EOS % 0.5 % (0.0-3.0); HEMATOCRIT 25.2 % (42.0-52.0); HEMOGLOBIN 7.7 g/dl (13.5-17.5); IMMATURE GRANULOCYTE % 0.7 % (0-3.0); LYMPH # 0.9 10^3/uL (1.5-4.5); LYMPH % 7.4 % (24.0-44.0); MEAN CORPUSCULAR HEMOGLOBIN 28.9 pg (27.0-33.0); MEAN CORPUSCULAR HGB CONC 30.6 g/dl (32.0-36.5); MEAN CORPUSCULAR VOLUME 94.7 fl (80.0-96.0); NEUTROPHILS # 9.9 10^3/uL (1.8-7.7); NEUTROPHILS % 83.3 % (36.0-66.0); PLATELET COUNT, AUTOMATED 260 10^3/uL (150-450); RED BLOOD COUNT 2.66 10^6/uL (4.30-6.10); RED CELL DISTRIBUTION WIDTH 16.1 % (11.5-14.5); WHITE BLOOD COUNT 11.9 10^3/uL (4.0-10.0)
[2018-01-16 04:09] LABS: INR 1.29; PROTHROMBIN TIME 16.3 SECONDS (12.1-14.4)
[2018-01-16 04:19] LABS: ALBUMIN/GLOBULIN RATIO 0.69 (1.00-1.93); ALKALINE PHOSPHATASE 52 U/L (45-117); ALT/SGPT 21 U/L (12-78); ANION GAP 7 MEQ/L (8-16); AST/SGOT 17 U/L (7-37); BILIRUBIN,TOTAL 0.3 MG/DL (0.2-1.0); BLOOD UREA NITROGEN 46 MG/DL (7-18); CALCIUM LEVEL 7.8 MG/DL (8.8-10.2); CARBON DIOXIDE LEVEL 34 MEQ/L (21-32); CHLORIDE LEVEL 103 MEQ/L (98-107); CK-MB VALUE MASS 1.7 NG/ML (<3.6); CPK CREATINE PHOSPHOKINASE 24 U/L (39-308); CREATININE FOR GFR 1.41 MG/DL (0.70-1.30); GLOMERULAR FILTRATION RATE 52.6 (>42); GLUCOSE, FASTING 107 MG/DL (70-100); MAGNESIUM LEVEL 1.8 MG/DL (1.8-2.4); MB/CK RELATIVE INDEX 7.08 (< OR =4); POTASSIUM SERUM 3.4 MEQ/L (3.5-5.1); SODIUM LEVEL 144 MEQ/L (136-145); TOTAL PROTEIN 4.9 GM/DL (6.4-8.2); TROPONIN I 0.04 NG/ML (< 0.10)
[2018-01-16] MEDS: FUROSEMIDE 40 MG/4 ML VIAL (J1940) IV (05:52)
[2018-01-16] MEDS: LevoFLOXacin 750 MG TABLET PO (05:53)
[2018-01-16] MEDS: MULTIVITAMINS/MINERALS THERAP 1 TAB PO ×2 (09:33→20:42)
[2018-01-16] MEDS: FLUoxetine 20 MG CAP PO (09:34)
[2018-01-16] MEDS: CYANOCOBALAMIN 500 MCG TAB PO ×3 (09:34→17:22)
[2018-01-16] MEDS: OMEPRAZOLE 20 MG CAP PO ×2 (09:34→20:41)
[2018-01-16] MEDS: SENOKOT S TAB PO ×2 (09:34→20:41)
[2018-01-16] MEDS: TAMSULOSIN 0.4 MG CAP PO (09:34)
[2018-01-16] MEDS: ATORVASTATIN 20 MG TAB PO (09:35)
[2018-01-16] MEDS: predniSONE 10 MG TAB PO (09:35)
[2018-01-16] MEDS: GABAPENTIN 300 MG CAP PO ×3 (09:35→20:41)
[2018-01-16] MEDS: FEBUXOSTAT 40 MG TABLET (ULORIC) PO (09:35)
[2018-01-16 11:11] LABS: CK-MB VALUE MASS 2.2 NG/ML (<3.6); CPK CREATINE PHOSPHOKINASE 32 U/L (39-308); MB/CK RELATIVE INDEX 6.87 (< OR =4); TROPONIN I 0.04 NG/ML (< 0.10)
[2018-01-16] MEDS: HumaLOG INSULIN (NovoLOG) PER UNIT SC ×3 (12:00→21:00)
[2018-01-16 12:16] LABS: APPEARANCE, URINE HAZY (CLEAR); BACTERIA, URINE AUTO NEGATIVE (NEGATIVE); BILIRUBIN, URINE AUTO NEGATIVE (NEGATIVE); BLOOD, URINE BLOOD 1+ (NEGATIVE); COLOR, URINE YELLOW (YELLOW); GLUCOSE, URINE (UA) AUTO NEGATIVE (NEGATIVE); KETONE, URINE AUTO NEGATIVE (NEGATIVE); LEUKOCYTE ESTERASE, URINE AUTO NEGATIVE (NEGATIVE); MUCUS, URINE SMALL (NEGATIVE); NITRITE, URINE AUTO NEGATIVE (NEGATIVE); PROTEIN, URINE AUTO 2+ mg/dL (NEGATIVE); RBC, URINE AUTO 3 /HPF (0-3); SPECIFIC GRAVITY URINE AUTO 1.013 (1.002-1.035); SQUAMOUS EPITHELIAL CELL UR AU 0 /HPF (0-6); UROBILINOGEN, URINE AUTO 0.2 mg/dL (0.0-2.0); WBC, URINE AUTO 6 /HPF (0-3)
[2018-01-16 12:28] LABS: CREATININE,RANDOM URINE 71.2 MG/DL; TOTAL PROTEIN,RANDOM URINE 220.7 MG/DL (0.0-12.0)
[2018-01-16] MEDS: POTASSIUM CHLORIDE 10 MEQ SR TABLET PO (13:04)
[2018-01-16] MEDS: FUROSEMIDE 100 MG/10 ML VIAL (J1940) IV ×2 (13:15→20:41)
[2018-01-16] MEDS: metOLazone 5 MG TAB PO (13:16)
[2018-01-16] MEDS ORDERED: GLUCOSE 4 GM CHEW TABLET PO (13:45)
[2018-01-16] MEDS ORDERED: GLUCAGON FOR INJ 1 MG VIAL (J1610) SC (13:45)
[2018-01-16] MEDS ORDERED: DEXTROSE 50% 50 ML SYRINGE IV (13:45)
[2018-01-16 17:03] LABS: BEDSIDE GLUCOSE 231 MG/DL (83-110)
[2018-01-16] MEDS: MAG SULF 1GM/100ML (MAG RUN) 1 GM in APPROPRIATE DILUENT 1 EA IV (20:40)
[2018-01-16 21:34] LABS: BEDSIDE GLUCOSE 143 MG/DL (83-110)
[2018-01-17] MEDS: IPRATROPIUM 0.5MG/ALBUTEROL 2.5MG INH SOL UD 3ML (DUONEB)(J7620) NEB ×4 (02:00→20:55)
[2018-01-17 04:07] LABS: BASO % 0.1 % (0.0-1.0); EOS % 0.2 % (0.0-3.0); HEMATOCRIT 26.5 % (42.0-52.0); IMMATURE GRANULOCYTE % 0.6 % (0-3.0); LYMPH % 8.4 % (24.0-44.0); MEAN CORPUSCULAR HEMOGLOBIN 28.9 pg (27.0-33.0); MEAN CORPUSCULAR HGB CONC 30.2 g/dl (32.0-36.5); MEAN CORPUSCULAR VOLUME 95.7 fl (80.0-96.0); MONO # 0.9 10^3/uL (0.0-0.8); MONO % 7.3 % (0.0-5.0); NEUTROPHILS # 10.3 10^3/uL (1.8-7.7); NEUTROPHILS % 83.4 % (36.0-66.0); PLATELET COUNT, AUTOMATED 274 10^3/uL (150-450); RED BLOOD COUNT 2.77 10^6/uL (4.30-6.10); RED CELL DISTRIBUTION WIDTH 15.9 % (11.5-14.5); WHITE BLOOD COUNT 12.4 10^3/uL (4.0-10.0)
[2018-01-17 04:20] LABS: INR 1.32; PROTHROMBIN TIME 16.6 SECONDS (12.1-14.4)
[2018-01-17 04:22] LABS: ALKALINE PHOSPHATASE 55 U/L (45-117); ALT/SGPT 23 U/L (12-78); ANION GAP 5 MEQ/L (8-16); AST/SGOT 15 U/L (7-37); BLOOD UREA NITROGEN 48 MG/DL (7-18); CALCIUM LEVEL 7.7 MG/DL (8.8-10.2); CARBON DIOXIDE LEVEL 34 MEQ/L (21-32); CHLORIDE LEVEL 103 MEQ/L (98-107); CREATININE FOR GFR 1.66 MG/DL (0.70-1.30); GLOMERULAR FILTRATION RATE 43.6 (>42); GLUCOSE, FASTING 112 MG/DL (70-100); SODIUM LEVEL 142 MEQ/L (136-145)
[2018-01-17 04:23] LABS: ALBUMIN 2.3 GM/DL (3.2-5.2); BILIRUBIN,TOTAL 0.4 MG/DL (0.2-1.0); MAGNESIUM LEVEL 2.4 MG/DL (1.8-2.4); TOTAL PROTEIN 5.6 GM/DL (6.4-8.2)
[2018-01-17] MEDS: FUROSEMIDE 100 MG/10 ML VIAL (J1940) IV ×3 (05:13→21:00)
[2018-01-17] MEDS: HYDROcodone/APAP LIQUID 7.5-325MG 15ML UDC (LORTAB ELIXIR) PO ×3 (06:11→18:51)
[2018-01-17] MEDS: OMEPRAZOLE 20 MG CAP PO ×2 (08:29→21:00)
[2018-01-17] MEDS: HumaLOG INSULIN (NovoLOG) PER UNIT SC ×4 (08:29→20:58)
[2018-01-17] MEDS: ATORVASTATIN 20 MG TAB PO (08:29)
[2018-01-17] MEDS: MULTIVITAMINS/MINERALS THERAP 1 TAB PO ×2 (08:30→21:00)
[2018-01-17] MEDS: FLUoxetine 20 MG CAP PO (08:30)
[2018-01-17] MEDS: GABAPENTIN 300 MG CAP PO ×3 (08:31→21:01)
[2018-01-17] MEDS: predniSONE 10 MG TAB PO (08:31)
[2018-01-17] MEDS: POTASSIUM CHLORIDE 10 MEQ SR TABLET PO (08:31)
[2018-01-17] MEDS: TAMSULOSIN 0.4 MG CAP PO (08:32)
[2018-01-17] MEDS: CYANOCOBALAMIN 500 MCG TAB PO ×3 (08:32→17:32)
[2018-01-17] MEDS: FEBUXOSTAT 40 MG TABLET (ULORIC) PO (08:32)
[2018-01-17] MEDS: SENOKOT S TAB PO ×2 (08:32→21:00)
[2018-01-17 12:29] LABS: BEDSIDE GLUCOSE 116 MG/DL (83-110)
[2018-01-17 17:28] LABS: BEDSIDE GLUCOSE 167 MG/DL (83-110)
[2018-01-17] MEDS: metOLazone 2.5 MG TAB PO (17:32)
[2018-01-17 20:47] LABS: BEDSIDE GLUCOSE 144 MG/DL (83-110)
[2018-01-17] MEDS: zolPIDEM TARTRATE 5 MG TAB PO (21:18)
[2018-01-18] MEDS: HYDROcodone/APAP LIQUID 7.5-325MG 15ML UDC (LORTAB ELIXIR) PO ×4 (00:34→18:19)
[2018-01-18] MEDS: IPRATROPIUM 0.5MG/ALBUTEROL 2.5MG INH SOL UD 3ML (DUONEB)(J7620) NEB ×4 (01:32→20:48)
[2018-01-18 05:09] LABS: BASO % 0.2 % (0.0-1.0); EOS # 0.1 10^3/uL (0.0-0.50); EOS % 0.6 % (0.0-3.0); HEMATOCRIT 25.5 % (42.0-52.0); HEMOGLOBIN 7.8 g/dl (13.5-17.5); IMMATURE GRANULOCYTE % 0.5 % (0-3.0); LYMPH # 1.2 10^3/uL (1.5-4.5); LYMPH % 10.4 % (24.0-44.0); MEAN CORPUSCULAR HEMOGLOBIN 28.8 pg (27.0-33.0); MEAN CORPUSCULAR HGB CONC 30.6 g/dl (32.0-36.5); MEAN CORPUSCULAR VOLUME 94.1 fl (80.0-96.0); MONO # 1.2 10^3/uL (0.0-0.8); MONO % 9.7 % (0.0-5.0); NEUTROPHILS # 9.4 10^3/uL (1.8-7.7); NEUTROPHILS % 78.6 % (36.0-66.0); PLATELET COUNT, AUTOMATED 289 10^3/uL (150-450); RED BLOOD COUNT 2.71 10^6/uL (4.30-6.10); RED CELL DISTRIBUTION WIDTH 15.9 % (11.5-14.5); WHITE BLOOD COUNT 11.9 10^3/uL (4.0-10.0)
[2018-01-18 05:22] LABS: ALBUMIN 2.3 GM/DL (3.2-5.2); ALKALINE PHOSPHATASE 53 U/L (45-117); ALT/SGPT 23 U/L (12-78); ANION GAP 6 MEQ/L (8-16); AST/SGOT 16 U/L (7-37); BILIRUBIN,TOTAL 0.3 MG/DL (0.2-1.0); BLOOD UREA NITROGEN 48 MG/DL (7-18); CALCIUM LEVEL 7.6 MG/DL (8.8-10.2); CARBON DIOXIDE LEVEL 35 MEQ/L (21-32); CHLORIDE LEVEL 99 MEQ/L (98-107); CREATININE FOR GFR 1.83 MG/DL (0.70-1.30); GLOMERULAR FILTRATION RATE 38.9 (>42); GLUCOSE, FASTING 107 MG/DL (70-100); MAGNESIUM LEVEL 2.3 MG/DL (1.8-2.4); POTASSIUM SERUM 3.2 MEQ/L (3.5-5.1); SODIUM LEVEL 140 MEQ/L (136-145); TOTAL PROTEIN 5.6 GM/DL (6.4-8.2)
[2018-01-18 05:24] LABS: INR 1.24; PROTHROMBIN TIME 15.8 SECONDS (12.1-14.4)
[2018-01-18] MEDS: FUROSEMIDE 100 MG/10 ML VIAL (J1940) IV ×3 (05:41→21:29)
[2018-01-18] MEDS: LevoFLOXacin 750 MG TABLET PO (05:46)
[2018-01-18] MEDS: HumaLOG INSULIN (NovoLOG) PER UNIT SC ×4 (08:00→21:30)
[2018-01-18] MEDS: SENOKOT S TAB PO ×2 (08:01→21:30)
[2018-01-18] MEDS: ATORVASTATIN 20 MG TAB PO (08:01)
[2018-01-18] MEDS: OMEPRAZOLE 20 MG CAP PO ×2 (08:01→21:29)
[2018-01-18] MEDS: MULTIVITAMINS/MINERALS THERAP 1 TAB PO ×2 (08:01→21:29)
[2018-01-18] MEDS: TAMSULOSIN 0.4 MG CAP PO (08:01)
[2018-01-18] MEDS: predniSONE 10 MG TAB PO (08:01)
[2018-01-18] MEDS: FLUoxetine 20 MG CAP PO (08:01)
[2018-01-18] MEDS: CYANOCOBALAMIN 500 MCG TAB PO ×3 (08:01→18:07)
[2018-01-18] MEDS: GABAPENTIN 300 MG CAP PO ×3 (08:01→21:28)
[2018-01-18] MEDS: POTASSIUM CHLORIDE 10 MEQ SR TABLET PO ×2 (08:02→18:08)
[2018-01-18] MEDS: FEBUXOSTAT 40 MG TABLET (ULORIC) PO (08:02)
[2018-01-18] MEDS: BACTRIM 160MG/800MG DS TAB PO (09:00)
[2018-01-18 11:21] LABS: BEDSIDE GLUCOSE 136 MG/DL (83-110)
[2018-01-18 12:50] LABS: IMMEDIATE SPIN CROSSMATCH 1 1
[2018-01-18] MEDS: SLF 3 ML SYR IV ×2 (13:09→21:31)
[2018-01-18 17:07] LABS: BEDSIDE GLUCOSE 169 MG/DL (83-110)
[2018-01-18 20:38] LABS: BEDSIDE GLUCOSE 116 MG/DL (83-110)
[2018-01-18] MEDS: NEORAL 100 MG CAP (J7502)(C9438) PO (21:28)
[2018-01-19] MEDS: HYDROcodone/APAP LIQUID 7.5-325MG 15ML UDC (LORTAB ELIXIR) PO ×4 (00:22→18:25)
[2018-01-19] MEDS: IPRATROPIUM 0.5MG/ALBUTEROL 2.5MG INH SOL UD 3ML (DUONEB)(J7620) NEB ×4 (01:27→20:16)
[2018-01-19 05:37] LABS: BASO % 0.2 % (0.0-1.0); EOS # 0.1 10^3/uL (0.0-0.50); EOS % 0.6 % (0.0-3.0); HEMATOCRIT 25.7 % (42.0-52.0); HEMOGLOBIN 8.1 g/dl (13.5-17.5); IMMATURE GRANULOCYTE % 0.7 % (0-3.0); LYMPH # 1.2 10^3/uL (1.5-4.5); LYMPH % 11.4 % (24.0-44.0); MEAN CORPUSCULAR HGB CONC 31.5 g/dl (32.0-36.5); MEAN CORPUSCULAR VOLUME 92.1 fl (80.0-96.0); MONO # 1.3 10^3/uL (0.0-0.8); MONO % 12.4 % (0.0-5.0); NEUTROPHILS # 8.1 10^3/uL (1.8-7.7); NEUTROPHILS % 74.7 % (36.0-66.0); PLATELET COUNT, AUTOMATED 260 10^3/uL (150-450); RED BLOOD COUNT 2.79 10^6/uL (4.30-6.10); RED CELL DISTRIBUTION WIDTH 15.7 % (11.5-14.5); WHITE BLOOD COUNT 10.8 10^3/uL (4.0-10.0)
[2018-01-19 05:52] LABS: PROTHROMBIN TIME 16.3 SECONDS (12.1-14.4)
[2018-01-19] MEDS: FUROSEMIDE 100 MG/10 ML VIAL (J1940) IV ×3 (05:53→20:43)
[2018-01-19 05:56] LABS: ALBUMIN 2.2 GM/DL (3.2-5.2); ALBUMIN/GLOBULIN RATIO 0.73 (1.00-1.93); ALKALINE PHOSPHATASE 49 U/L (45-117); ALT/SGPT 22 U/L (12-78); ANION GAP 6 MEQ/L (8-16); AST/SGOT 18 U/L (7-37); BILIRUBIN,TOTAL 0.5 MG/DL (0.2-1.0); BLOOD UREA NITROGEN 46 MG/DL (7-18); CALCIUM LEVEL 7.6 MG/DL (8.8-10.2); CARBON DIOXIDE LEVEL 38 MEQ/L (21-32); CHLORIDE LEVEL 98 MEQ/L (98-107); CREATININE FOR GFR 1.61 MG/DL (0.70-1.30); GLOMERULAR FILTRATION RATE 45.1 (>42); GLUCOSE, FASTING 93 MG/DL (70-100); SODIUM LEVEL 142 MEQ/L (136-145); TOTAL PROTEIN 5.2 GM/DL (6.4-8.2)
[2018-01-19] MEDS: SLF 3 ML SYR IV ×3 (06:31→20:43)
[2018-01-19] MEDS: HumaLOG INSULIN (NovoLOG) PER UNIT SC ×4 (07:30→20:42)
[2018-01-19] MEDS: GABAPENTIN 300 MG CAP PO ×3 (08:28→20:41)
[2018-01-19] MEDS: ATORVASTATIN 20 MG TAB PO (08:28)
[2018-01-19] MEDS: MULTIVITAMINS/MINERALS THERAP 1 TAB PO ×2 (08:28→20:41)
[2018-01-19] MEDS: POTASSIUM CHLORIDE 10 MEQ SR TABLET PO ×4 (08:28→20:41)
[2018-01-19] MEDS: predniSONE 10 MG TAB PO (08:29)
[2018-01-19] MEDS: NEORAL 100 MG CAP (J7502)(C9438) PO ×2 (08:29→20:41)
[2018-01-19] MEDS: FLUoxetine 20 MG CAP PO (08:29)
[2018-01-19] MEDS: CYANOCOBALAMIN 500 MCG TAB PO ×3 (08:30→17:59)
[2018-01-19] MEDS: OMEPRAZOLE 20 MG CAP PO ×2 (08:34→20:40)
[2018-01-19] MEDS: TAMSULOSIN 0.4 MG CAP PO (08:37)
[2018-01-19] MEDS: FEBUXOSTAT 40 MG TABLET (ULORIC) PO (08:38)
[2018-01-19] MEDS: SENOKOT S TAB PO ×2 (09:00→20:42)
[2018-01-19] MEDS: metOLazone 5 MG TAB PO (10:06)
[2018-01-19 12:04] LABS: BEDSIDE GLUCOSE 122 MG/DL (83-110)
[2018-01-19 17:47] LABS: BEDSIDE GLUCOSE 202 MG/DL (83-110)
[2018-01-19 20:25] LABS: BEDSIDE GLUCOSE 189 MG/DL (83-110)
[2018-01-19] MEDS: zolPIDEM TARTRATE 5 MG TAB PO (20:44)
[2018-01-20] MEDS: HYDROcodone/APAP LIQUID 7.5-325MG 15ML UDC (LORTAB ELIXIR) PO ×4 (00:34→18:41)
[2018-01-20] MEDS: IPRATROPIUM 0.5MG/ALBUTEROL 2.5MG INH SOL UD 3ML (DUONEB)(J7620) NEB ×4 (01:36→20:04)
[2018-01-20] MEDS: FUROSEMIDE 100 MG/10 ML VIAL (J1940) IV ×3 (05:07→18:06)
[2018-01-20] MEDS: SLF 3 ML SYR IV ×3 (05:08→20:42)
[2018-01-20 05:48] LABS: BASO % 0.1 % (0.0-1.0); EOS % 0.3 % (0.0-3.0); HEMATOCRIT 26.9 % (42.0-52.0); HEMOGLOBIN 8.4 g/dl (13.5-17.5); IMMATURE GRANULOCYTE % 0.7 % (0-3.0); LYMPH # 1.4 10^3/uL (1.5-4.5); LYMPH % 11.1 % (24.0-44.0); MEAN CORPUSCULAR HEMOGLOBIN 28.8 pg (27.0-33.0); MEAN CORPUSCULAR HGB CONC 31.2 g/dl (32.0-36.5); MEAN CORPUSCULAR VOLUME 92.1 fl (80.0-96.0); MONO # 1.3 10^3/uL (0.0-0.8); MONO % 10.3 % (0.0-5.0); NEUTROPHILS # 9.6 10^3/uL (1.8-7.7); NEUTROPHILS % 77.5 % (36.0-66.0); PLATELET COUNT, AUTOMATED 310 10^3/uL (150-450); RED BLOOD COUNT 2.92 10^6/uL (4.30-6.10); RED CELL DISTRIBUTION WIDTH 15.7 % (11.5-14.5); WHITE BLOOD COUNT 12.4 10^3/uL (4.0-10.0)
[2018-01-20 06:01] LABS: ALBUMIN 2.3 GM/DL (3.2-5.2); ALBUMIN/GLOBULIN RATIO 0.72 (1.00-1.93); ALKALINE PHOSPHATASE 51 U/L (45-117); ALT/SGPT 21 U/L (12-78); ANION GAP 7 MEQ/L (8-16); AST/SGOT 23 U/L (7-37); BILIRUBIN,TOTAL 0.3 MG/DL (0.2-1.0); BLOOD UREA NITROGEN 48 MG/DL (7-18); CALCIUM LEVEL 7.8 MG/DL (8.8-10.2); CARBON DIOXIDE LEVEL 34 MEQ/L (21-32); CHLORIDE LEVEL 101 MEQ/L (98-107); CREATININE FOR GFR 1.66 MG/DL (0.70-1.30); GLOMERULAR FILTRATION RATE 43.6 (>42); GLUCOSE, FASTING 92 MG/DL (70-100); MAGNESIUM LEVEL 2.2 MG/DL (1.8-2.4); POTASSIUM SERUM 3.7 MEQ/L (3.5-5.1); SODIUM LEVEL 142 MEQ/L (136-145); TOTAL PROTEIN 5.5 GM/DL (6.4-8.2)
[2018-01-20 06:10] LABS: INR 1.27; PROTHROMBIN TIME 16.1 SECONDS (12.1-14.4)
[2018-01-20] MEDS: HumaLOG INSULIN (NovoLOG) PER UNIT SC ×4 (08:11→20:41)
[2018-01-20] MEDS: ATORVASTATIN 20 MG TAB PO (08:21)
[2018-01-20] MEDS: SENOKOT S TAB PO ×2 (08:21→20:41)
[2018-01-20] MEDS: OMEPRAZOLE 20 MG CAP PO ×2 (08:21→20:40)
[2018-01-20] MEDS: FEBUXOSTAT 40 MG TABLET (ULORIC) PO (08:21)
[2018-01-20] MEDS: FLUoxetine 20 MG CAP PO (08:21)
[2018-01-20] MEDS: CYANOCOBALAMIN 500 MCG TAB PO ×3 (08:21→18:05)
[2018-01-20] MEDS: NEORAL 100 MG CAP (J7502)(C9438) PO ×2 (08:21→20:41)
[2018-01-20] MEDS: TAMSULOSIN 0.4 MG CAP PO (08:21)
[2018-01-20] MEDS: MULTIVITAMINS/MINERALS THERAP 1 TAB PO ×2 (08:21→20:39)
[2018-01-20] MEDS: predniSONE 10 MG TAB PO (08:21)
[2018-01-20] MEDS: BACTRIM 160MG/800MG DS TAB PO ×2 (08:22→08:23)
[2018-01-20] MEDS: POTASSIUM CHLORIDE 10 MEQ SR TABLET PO ×2 (08:22→20:40)
[2018-01-20] MEDS: GABAPENTIN 300 MG CAP PO ×3 (08:22→20:41)
[2018-01-20] MEDS: metOLazone 5 MG TAB PO (09:26)
[2018-01-20 12:17] LABS: BEDSIDE GLUCOSE 131 MG/DL (83-110)
[2018-01-20 17:59] LABS: BEDSIDE GLUCOSE 168 MG/DL (83-110)
[2018-01-20 20:09] LABS: BEDSIDE GLUCOSE 149 MG/DL (83-110)
[2018-01-20] MEDS: zolPIDEM TARTRATE 5 MG TAB PO (20:41)
[2018-01-21] MEDS: FUROSEMIDE 100 MG/10 ML VIAL (J1940) IV ×4 (00:44→23:27)
[2018-01-21] MEDS: HYDROcodone/APAP LIQUID 7.5-325MG 15ML UDC (LORTAB ELIXIR) PO ×4 (00:46→19:20)
[2018-01-21] MEDS: IPRATROPIUM 0.5MG/ALBUTEROL 2.5MG INH SOL UD 3ML (DUONEB)(J7620) NEB ×4 (02:00→19:33)
[2018-01-21 05:55] LABS: BASO % 0.1 % (0.0-1.0); EOS % 0.2 % (0.0-3.0); HEMATOCRIT 27.6 % (42.0-52.0); HEMOGLOBIN 8.4 g/dl (13.5-17.5); IMMATURE GRANULOCYTE % 0.6 % (0-3.0); LYMPH # 1.4 10^3/uL (1.5-4.5); LYMPH % 11.3 % (24.0-44.0); MEAN CORPUSCULAR HEMOGLOBIN 29.2 pg (27.0-33.0); MEAN CORPUSCULAR HGB CONC 30.4 g/dl (32.0-36.5); MEAN CORPUSCULAR VOLUME 95.8 fl (80.0-96.0); MONO # 1.2 10^3/uL (0.0-0.8); MONO % 9.7 % (0.0-5.0); NEUTROPHILS # 9.6 10^3/uL (1.8-7.7); NEUTROPHILS % 78.1 % (36.0-66.0); PLATELET COUNT, AUTOMATED 289 10^3/uL (150-450); RED BLOOD COUNT 2.88 10^6/uL (4.30-6.10); RED CELL DISTRIBUTION WIDTH 15.9 % (11.5-14.5); WHITE BLOOD COUNT 12.3 10^3/uL (4.0-10.0)
[2018-01-21 06:00] LABS: INR 1.23; PROTHROMBIN TIME 15.7 SECONDS (12.1-14.4)
[2018-01-21 06:09] LABS: ALBUMIN 2.5 GM/DL (3.2-5.2); ALBUMIN/GLOBULIN RATIO 0.78 (1.00-1.93); ALKALINE PHOSPHATASE 51 U/L (45-117); ALT/SGPT 26 U/L (12-78); ANION GAP 2 MEQ/L (8-16); AST/SGOT 18 U/L (7-37); BILIRUBIN,TOTAL 0.2 MG/DL (0.2-1.0); BLOOD UREA NITROGEN 53 MG/DL (7-18); CALCIUM LEVEL 7.9 MG/DL (8.8-10.2); CARBON DIOXIDE LEVEL 37 MEQ/L (21-32); CHLORIDE LEVEL 98 MEQ/L (98-107); CREATININE FOR GFR 1.95 MG/DL (0.70-1.30); GLOMERULAR FILTRATION RATE 36.2 (>42); GLUCOSE, FASTING 99 MG/DL (70-100); MAGNESIUM LEVEL 2.1 MG/DL (1.8-2.4); POTASSIUM SERUM 3.7 MEQ/L (3.5-5.1); SODIUM LEVEL 137 MEQ/L (136-145); TOTAL PROTEIN 5.7 GM/DL (6.4-8.2)
[2018-01-21] MEDS: SLF 3 ML SYR IV ×3 (06:54→21:14)
[2018-01-21] MEDS: HumaLOG INSULIN (NovoLOG) PER UNIT SC ×4 (08:12→20:15)
[2018-01-21] MEDS: FEBUXOSTAT 40 MG TABLET (ULORIC) PO (08:23)
[2018-01-21] MEDS: MULTIVITAMINS/MINERALS THERAP 1 TAB PO ×2 (08:23→20:26)
[2018-01-21] MEDS: NEORAL 100 MG CAP (J7502)(C9438) PO ×2 (08:23→20:26)
[2018-01-21] MEDS: predniSONE 10 MG TAB PO (08:24)
[2018-01-21] MEDS: SENOKOT S TAB PO ×2 (08:24→20:16)
[2018-01-21] MEDS: FLUoxetine 20 MG CAP PO (08:24)
[2018-01-21] MEDS: TAMSULOSIN 0.4 MG CAP PO (08:24)
[2018-01-21] MEDS: POTASSIUM CHLORIDE 10 MEQ SR TABLET PO ×2 (08:24→20:26)
[2018-01-21] MEDS: ATORVASTATIN 20 MG TAB PO (08:24)
[2018-01-21] MEDS: OMEPRAZOLE 20 MG CAP PO ×2 (08:24→20:25)
[2018-01-21] MEDS: GABAPENTIN 300 MG CAP PO ×3 (08:24→20:26)
[2018-01-21] MEDS: CYANOCOBALAMIN 500 MCG TAB PO ×3 (08:25→17:19)
[2018-01-21 11:28] LABS: BEDSIDE GLUCOSE 162 MG/DL (83-110)
[2018-01-21] MEDS: CHLOROTHIAZIDE 500 MG VIAL (J1205) IV (12:10)
[2018-01-21 13:09] LABS: APPEARANCE, URINE CLEAR (CLEAR); BACTERIA, URINE AUTO NEGATIVE (NEGATIVE); BILIRUBIN, URINE AUTO NEGATIVE (NEGATIVE); BLOOD, URINE BLOOD 1+ (NEGATIVE); COLOR, URINE YELLOW (YELLOW); GLUCOSE, URINE (UA) AUTO NEGATIVE (NEGATIVE); KETONE, URINE AUTO NEGATIVE (NEGATIVE); LEUKOCYTE ESTERASE, URINE AUTO TRACE (NEGATIVE); NITRITE, URINE AUTO NEGATIVE (NEGATIVE); PROTEIN, URINE AUTO 2+ mg/dL (NEGATIVE); RBC, URINE AUTO 1 /HPF (0-3); SQUAMOUS EPITHELIAL CELL UR AU 1 /HPF (0-6); UROBILINOGEN, URINE AUTO 0.2 mg/dL (0.0-2.0); WBC, URINE AUTO 1 /HPF (0-3)
[2018-01-21 13:27] LABS: CREATININE,RANDOM URINE 53.8 MG/DL; TOTAL PROTEIN,RANDOM URINE 60.1 MG/DL (0.0-12.0)
[2018-01-21 17:13] LABS: BEDSIDE GLUCOSE 190 MG/DL (83-110)
[2018-01-21 20:21] LABS: BEDSIDE GLUCOSE 170 MG/DL (83-110)
[2018-01-21] MEDS: zolPIDEM TARTRATE 5 MG TAB PO (20:25)
[2018-01-22] MEDS: IPRATROPIUM 0.5MG/ALBUTEROL 2.5MG INH SOL UD 3ML (DUONEB)(J7620) NEB ×4 (01:19→20:27)
[2018-01-22] MEDS: HYDROcodone/APAP LIQUID 7.5-325MG 15ML UDC (LORTAB ELIXIR) PO ×4 (01:50→21:47)
[2018-01-22 04:56] LABS: BASO % 0.1 % (0.0-1.0); EOS % 0.2 % (0.0-3.0); HEMATOCRIT 26.2 % (42.0-52.0); HEMOGLOBIN 8.1 g/dl (13.5-17.5); IMMATURE GRANULOCYTE % 0.5 % (0-3.0); LYMPH # 1.2 10^3/uL (1.5-4.5); LYMPH % 10.3 % (24.0-44.0); MEAN CORPUSCULAR HEMOGLOBIN 29.1 pg (27.0-33.0); MEAN CORPUSCULAR HGB CONC 30.9 g/dl (32.0-36.5); MEAN CORPUSCULAR VOLUME 94.2 fl (80.0-96.0); MONO # 1.1 10^3/uL (0.0-0.8); NEUTROPHILS % 78.9 % (36.0-66.0); PLATELET COUNT, AUTOMATED 271 10^3/uL (150-450); RED BLOOD COUNT 2.78 10^6/uL (4.30-6.10); RED CELL DISTRIBUTION WIDTH 15.7 % (11.5-14.5); WHITE BLOOD COUNT 11.4 10^3/uL (4.0-10.0)
[2018-01-22 05:14] LABS: INR 1.25; PROTHROMBIN TIME 15.9 SECONDS (12.1-14.4)
[2018-01-22 05:17] LABS: ALBUMIN 2.5 GM/DL (3.2-5.2); ALBUMIN/GLOBULIN RATIO 0.81 (1.00-1.93); ALKALINE PHOSPHATASE 49 U/L (45-117); ALT/SGPT 24 U/L (12-78); ANION GAP 6 MEQ/L (8-16); AST/SGOT 17 U/L (7-37); BILIRUBIN,TOTAL 0.3 MG/DL (0.2-1.0); BLOOD UREA NITROGEN 56 MG/DL (7-18); CALCIUM LEVEL 7.8 MG/DL (8.8-10.2); CARBON DIOXIDE LEVEL 36 MEQ/L (21-32); CHLORIDE LEVEL 97 MEQ/L (98-107); CREATININE FOR GFR 2.06 MG/DL (0.70-1.30); GLUCOSE, FASTING 107 MG/DL (70-100); MAGNESIUM LEVEL 2.2 MG/DL (1.8-2.4); POTASSIUM SERUM 3.6 MEQ/L (3.5-5.1); SODIUM LEVEL 139 MEQ/L (136-145); TOTAL PROTEIN 5.6 GM/DL (6.4-8.2)
[2018-01-22] MEDS: FUROSEMIDE 100 MG/10 ML VIAL (J1940) IV ×4 (05:35→23:44)
[2018-01-22] MEDS: SLF 3 ML SYR IV ×4 (05:36→20:31)
[2018-01-22] MEDS: HumaLOG INSULIN (NovoLOG) PER UNIT SC ×4 (07:56→20:34)
[2018-01-22] MEDS: MULTIVITAMINS/MINERALS THERAP 1 TAB PO ×2 (07:59→20:32)
[2018-01-22] MEDS: ASPIRIN 81 MG ENTERIC TAB PO (08:00)
[2018-01-22] MEDS: TAMSULOSIN 0.4 MG CAP PO (08:00)
[2018-01-22] MEDS: SENOKOT S TAB PO ×2 (08:00→20:33)
[2018-01-22] MEDS: GABAPENTIN 300 MG CAP PO ×3 (08:00→20:31)
[2018-01-22] MEDS: **hydrALAZINE** 10 MG TAB PO ×3 (08:01→20:32)
[2018-01-22] MEDS: ATORVASTATIN 20 MG TAB PO (08:01)
[2018-01-22] MEDS: CYANOCOBALAMIN 500 MCG TAB PO ×3 (08:02→17:06)
[2018-01-22] MEDS: POTASSIUM CHLORIDE 10 MEQ SR TABLET PO ×2 (08:02→20:32)
[2018-01-22] MEDS: FLUoxetine 20 MG CAP PO (08:03)
[2018-01-22] MEDS: OMEPRAZOLE 20 MG CAP PO ×2 (08:03→20:33)
[2018-01-22] MEDS: predniSONE 10 MG TAB PO (08:03)
[2018-01-22] MEDS: BACTRIM 160MG/800MG DS TAB PO (08:04)
[2018-01-22] MEDS: NEORAL 100 MG CAP (J7502)(C9438) PO ×2 (08:04→20:31)
[2018-01-22] MEDS: FEBUXOSTAT 40 MG TABLET (ULORIC) PO (08:04)
[2018-01-22] MEDS: CHLOROTHIAZIDE 500 MG VIAL (J1205) IV (11:45)
[2018-01-22 12:09] LABS: BEDSIDE GLUCOSE 147 MG/DL (83-110)
[2018-01-22 16:42] LABS: BEDSIDE GLUCOSE 251 MG/DL (83-110)
[2018-01-22 20:26] LABS: BEDSIDE GLUCOSE 138 MG/DL (83-110)
[2018-01-22] MEDS: zolPIDEM TARTRATE 5 MG TAB PO (21:46)
[2018-01-23] MEDS: IPRATROPIUM 0.5MG/ALBUTEROL 2.5MG INH SOL UD 3ML (DUONEB)(J7620) NEB ×4 (02:00→19:57)
[2018-01-23] MEDS: HYDROcodone/APAP LIQUID 7.5-325MG 15ML UDC (LORTAB ELIXIR) PO ×3 (04:16→18:41)
[2018-01-23] MEDS: SLF 3 ML SYR IV ×3 (06:36→20:30)
[2018-01-23] MEDS: FUROSEMIDE 100 MG/10 ML VIAL (J1940) IV ×3 (06:36→17:09)
[2018-01-23 07:00] LABS: BEDSIDE GLUCOSE 113 MG/DL (83-110)
[2018-01-23] MEDS: HumaLOG INSULIN (NovoLOG) PER UNIT SC ×4 (07:46→20:29)
[2018-01-23] MEDS: SENOKOT S TAB PO ×2 (07:58→20:29)
[2018-01-23] MEDS: NEORAL 100 MG CAP (J7502)(C9438) PO ×2 (07:58→20:21)
[2018-01-23] MEDS: FEBUXOSTAT 40 MG TABLET (ULORIC) PO (07:58)
[2018-01-23] MEDS: MULTIVITAMINS/MINERALS THERAP 1 TAB PO ×2 (07:58→20:20)
[2018-01-23] MEDS: CYANOCOBALAMIN 500 MCG TAB PO ×3 (07:58→17:11)
[2018-01-23] MEDS: ATORVASTATIN 20 MG TAB PO (07:58)
[2018-01-23] MEDS: ASPIRIN 81 MG ENTERIC TAB PO (07:58)
[2018-01-23] MEDS: OMEPRAZOLE 20 MG CAP PO ×2 (07:58→20:20)
[2018-01-23] MEDS: POTASSIUM CHLORIDE 10 MEQ SR TABLET PO ×4 (08:00→20:20)
[2018-01-23] MEDS: predniSONE 10 MG TAB PO (08:00)
[2018-01-23] MEDS: FLUoxetine 20 MG CAP PO (08:00)
[2018-01-23] MEDS: GABAPENTIN 300 MG CAP PO ×3 (08:01→20:20)
[2018-01-23] MEDS: TAMSULOSIN 0.4 MG CAP PO (08:01)
[2018-01-23] MEDS: **hydrALAZINE** 10 MG TAB PO ×3 (08:01→20:21)
[2018-01-23 08:07] LABS: BASO % 0.1 % (0.0-1.0); EOS % 0.3 % (0.0-3.0); HEMATOCRIT 27.6 % (42.0-52.0); HEMOGLOBIN 8.6 g/dl (13.5-17.5); IMMATURE GRANULOCYTE % 0.4 % (0-3.0); LYMPH # 1.4 10^3/uL (1.5-4.5); LYMPH % 12.9 % (24.0-44.0); MEAN CORPUSCULAR HEMOGLOBIN 29.1 pg (27.0-33.0); MEAN CORPUSCULAR HGB CONC 31.2 g/dl (32.0-36.5); MEAN CORPUSCULAR VOLUME 93.2 fl (80.0-96.0); MONO # 1.3 10^3/uL (0.0-0.8); MONO % 11.3 % (0.0-5.0); NEUTROPHILS # 8.4 10^3/uL (1.8-7.7); PLATELET COUNT, AUTOMATED 277 10^3/uL (150-450); RED BLOOD COUNT 2.96 10^6/uL (4.30-6.10); RED CELL DISTRIBUTION WIDTH 15.8 % (11.5-14.5); WHITE BLOOD COUNT 11.2 10^3/uL (4.0-10.0)
[2018-01-23 08:31] LABS: ALBUMIN 2.6 GM/DL (3.2-5.2); ALBUMIN/GLOBULIN RATIO 0.96 (1.00-1.93); ALKALINE PHOSPHATASE 47 U/L (45-117); ALT/SGPT 24 U/L (12-78); ANION GAP 6 MEQ/L (8-16); AST/SGOT 15 U/L (7-37); BILIRUBIN,TOTAL 0.4 MG/DL (0.2-1.0); BLOOD UREA NITROGEN 59 MG/DL (7-18); CALCIUM LEVEL 8.1 MG/DL (8.8-10.2); CARBON DIOXIDE LEVEL 39 MEQ/L (21-32); CHLORIDE LEVEL 96 MEQ/L (98-107); CREATININE FOR GFR 2.07 MG/DL (0.70-1.30); GLOMERULAR FILTRATION RATE 33.8 (>42); GLUCOSE, FASTING 97 MG/DL (70-100); MAGNESIUM LEVEL 2.2 MG/DL (1.8-2.4); POTASSIUM SERUM 3.3 MEQ/L (3.5-5.1); SODIUM LEVEL 141 MEQ/L (136-145); TOTAL PROTEIN 5.3 GM/DL (6.4-8.2)
[2018-01-23 11:31] LABS: BEDSIDE GLUCOSE 175 MG/DL (83-110)
[2018-01-23] MEDS: SPIRONOLACTONE 25 MG TAB PO ×2 (12:42→17:10)
[2018-01-23 14:29] LABS: POTASSIUM SERUM 3.8 MEQ/L (3.5-5.1)
[2018-01-23 16:57] LABS: BEDSIDE GLUCOSE 319 MG/DL (83-110)
[2018-01-23 20:06] LABS: BEDSIDE GLUCOSE 157 MG/DL (83-110)
[2018-01-23] MEDS: zolPIDEM TARTRATE 5 MG TAB PO (20:55)
[2018-01-24] MEDS: FUROSEMIDE 100 MG/10 ML VIAL (J1940) IV ×2 (00:11→06:02)
[2018-01-24] MEDS: HYDROcodone/APAP LIQUID 7.5-325MG 15ML UDC (LORTAB ELIXIR) PO ×4 (01:17→21:42)
[2018-01-24] MEDS: IPRATROPIUM 0.5MG/ALBUTEROL 2.5MG INH SOL UD 3ML (DUONEB)(J7620) NEB ×5 (02:00→19:43)
[2018-01-24 05:23] LABS: BASO % 0.1 % (0.0-1.0); EOS % 0.2 % (0.0-3.0); HEMOGLOBIN 8.6 g/dl (13.5-17.5); IMMATURE GRANULOCYTE % 0.4 % (0-3.0); LYMPH # 1.6 10^3/uL (1.5-4.5); LYMPH % 11.9 % (24.0-44.0); MEAN CORPUSCULAR HEMOGLOBIN 28.3 pg (27.0-33.0); MEAN CORPUSCULAR HGB CONC 30.7 g/dl (32.0-36.5); MEAN CORPUSCULAR VOLUME 92.1 fl (80.0-96.0); MONO # 1.3 10^3/uL (0.0-0.8); MONO % 9.6 % (0.0-5.0); NEUTROPHILS # 10.6 10^3/uL (1.8-7.7); NEUTROPHILS % 77.8 % (36.0-66.0); PLATELET COUNT, AUTOMATED 317 10^3/uL (150-450); RED BLOOD COUNT 3.04 10^6/uL (4.30-6.10); RED CELL DISTRIBUTION WIDTH 15.9 % (11.5-14.5); WHITE BLOOD COUNT 13.6 10^3/uL (4.0-10.0)
[2018-01-24 05:46] LABS: ALBUMIN 2.6 GM/DL (3.2-5.2); ALBUMIN/GLOBULIN RATIO 0.81 (1.00-1.93); ALKALINE PHOSPHATASE 50 U/L (45-117); ALT/SGPT 25 U/L (12-78); ANION GAP 7 MEQ/L (8-16); AST/SGOT 18 U/L (7-37); BILIRUBIN,TOTAL 0.3 MG/DL (0.2-1.0); BLOOD UREA NITROGEN 62 MG/DL (7-18); CALCIUM LEVEL 8.1 MG/DL (8.8-10.2); CARBON DIOXIDE LEVEL 35 MEQ/L (21-32); CHLORIDE LEVEL 99 MEQ/L (98-107); CREATININE FOR GFR 2.28 MG/DL (0.70-1.30); GLOMERULAR FILTRATION RATE 30.2 (>42); GLUCOSE, FASTING 106 MG/DL (70-100); MAGNESIUM LEVEL 2.1 MG/DL (1.8-2.4); POTASSIUM SERUM 3.9 MEQ/L (3.5-5.1); SODIUM LEVEL 141 MEQ/L (136-145); TOTAL PROTEIN 5.8 GM/DL (6.4-8.2)
[2018-01-24] MEDS: SLF 3 ML SYR IV ×3 (06:02→20:24)
[2018-01-24] MEDS: HumaLOG INSULIN (NovoLOG) PER UNIT SC ×4 (07:54→20:24)
[2018-01-24] MEDS: ATORVASTATIN 20 MG TAB PO (08:07)
[2018-01-24] MEDS: FEBUXOSTAT 40 MG TABLET (ULORIC) PO (08:07)
[2018-01-24] MEDS: MULTIVITAMINS/MINERALS THERAP 1 TAB PO ×2 (08:07→20:24)
[2018-01-24] MEDS: SPIRONOLACTONE 25 MG TAB PO ×2 (08:07→17:14)
[2018-01-24] MEDS: NEORAL 100 MG CAP (J7502)(C9438) PO ×2 (08:07→20:23)
[2018-01-24] MEDS: CYANOCOBALAMIN 500 MCG TAB PO ×3 (08:08→17:15)
[2018-01-24] MEDS: predniSONE 10 MG TAB PO (08:08)
[2018-01-24] MEDS: POTASSIUM CHLORIDE 10 MEQ SR TABLET PO ×2 (08:08→20:23)
[2018-01-24] MEDS: ASPIRIN 81 MG ENTERIC TAB PO (08:09)
[2018-01-24] MEDS: OMEPRAZOLE 20 MG CAP PO ×2 (08:09→20:23)
[2018-01-24] MEDS: SENOKOT S TAB PO ×2 (08:09→20:24)
[2018-01-24] MEDS: GABAPENTIN 300 MG CAP PO ×3 (08:09→20:24)
[2018-01-24] MEDS: TAMSULOSIN 0.4 MG CAP PO (08:09)
[2018-01-24] MEDS: FLUoxetine 20 MG CAP PO (08:09)
[2018-01-24] MEDS: **hydrALAZINE** 10 MG TAB PO (08:13)
[2018-01-24 11:55] LABS: BEDSIDE GLUCOSE 144 MG/DL (83-110)
[2018-01-24] MEDS: FUROSEMIDE injection 250 MG in D5W 225 ML IV (12:29)
[2018-01-24 14:12] LABS: APPEARANCE, URINE HAZY (CLEAR); BACTERIA, URINE AUTO 1+ (NEGATIVE); BILIRUBIN, URINE AUTO NEGATIVE (NEGATIVE); BLOOD, URINE BLOOD NEGATIVE (NEGATIVE); COLOR, URINE YELLOW (YELLOW); GLUCOSE, URINE (UA) AUTO NEGATIVE (NEGATIVE); KETONE, URINE AUTO NEGATIVE (NEGATIVE); LEUKOCYTE ESTERASE, URINE AUTO 2+ (NEGATIVE); MUCUS, URINE SMALL (NEGATIVE); NITRITE, URINE AUTO NEGATIVE (NEGATIVE); PROTEIN, URINE AUTO 2+ mg/dL (NEGATIVE); RBC, URINE AUTO 3 /HPF (0-3); SPECIFIC GRAVITY URINE AUTO 1.015 (1.002-1.035); SQUAMOUS EPITHELIAL CELL UR AU 1 /HPF (0-6); UROBILINOGEN, URINE AUTO 0.2 mg/dL (0.0-2.0); WBC, URINE AUTO 24 /HPF (0-3)
[2018-01-24 17:02] LABS: BEDSIDE GLUCOSE 191 MG/DL (83-110)
[2018-01-24 20:15] LABS: BEDSIDE GLUCOSE 127 MG/DL (83-110)
[2018-01-24] MEDS: metOLazone 2.5 MG TAB PO (20:24)
[2018-01-24] MEDS: zolPIDEM TARTRATE 5 MG TAB PO (21:42)
[2018-01-25] MEDS: IPRATROPIUM 0.5MG/ALBUTEROL 2.5MG INH SOL UD 3ML (DUONEB)(J7620) NEB ×4 (01:05→20:03)
[2018-01-25 05:54] LABS: BASO % 0.2 % (0.0-1.0); EOS % 0.2 % (0.0-3.0); HEMATOCRIT 25.5 % (42.0-52.0); HEMOGLOBIN 7.8 g/dl (13.5-17.5); IMMATURE GRANULOCYTE % 0.5 % (0-3.0); LYMPH # 1.2 10^3/uL (1.5-4.5); LYMPH % 9.6 % (24.0-44.0); MEAN CORPUSCULAR HEMOGLOBIN 28.6 pg (27.0-33.0); MEAN CORPUSCULAR HGB CONC 30.6 g/dl (32.0-36.5); MEAN CORPUSCULAR VOLUME 93.4 fl (80.0-96.0); MONO # 1.1 10^3/uL (0.0-0.8); MONO % 8.9 % (0.0-5.0); NEUTROPHILS # 10.2 10^3/uL (1.8-7.7); NEUTROPHILS % 80.6 % (36.0-66.0); PLATELET COUNT, AUTOMATED 248 10^3/uL (150-450); RED BLOOD COUNT 2.73 10^6/uL (4.30-6.10); RED CELL DISTRIBUTION WIDTH 15.8 % (11.5-14.5); WHITE BLOOD COUNT 12.7 10^3/uL (4.0-10.0)
[2018-01-25] MEDS: SLF 3 ML SYR IV ×3 (06:00→19:49)
[2018-01-25 06:15] LABS: ALBUMIN 2.6 GM/DL (3.2-5.2); ALKALINE PHOSPHATASE 45 U/L (45-117); ALT/SGPT 24 U/L (12-78); ANION GAP 4 MEQ/L (8-16); AST/SGOT 18 U/L (7-37); BILIRUBIN,TOTAL 0.5 MG/DL (0.2-1.0); BLOOD UREA NITROGEN 65 MG/DL (7-18); CALCIUM LEVEL 8.1 MG/DL (8.8-10.2); CARBON DIOXIDE LEVEL 37 MEQ/L (21-32); CHLORIDE LEVEL 98 MEQ/L (98-107); CREATININE FOR GFR 2.23 MG/DL (0.70-1.30); GLUCOSE, FASTING 100 MG/DL (70-100); MAGNESIUM LEVEL 2.2 MG/DL (1.8-2.4); POTASSIUM SERUM 3.9 MEQ/L (3.5-5.1); SODIUM LEVEL 139 MEQ/L (136-145); TOTAL PROTEIN 5.5 GM/DL (6.4-8.2)
[2018-01-25] MEDS: FUROSEMIDE injection 250 MG in D5W 225 ML IV (06:19)
[2018-01-25] MEDS: HYDROcodone/APAP LIQUID 7.5-325MG 15ML UDC (LORTAB ELIXIR) PO ×3 (06:20→19:50)
[2018-01-25] MEDS: HumaLOG INSULIN (NovoLOG) PER UNIT SC ×4 (07:57→21:00)
[2018-01-25] MEDS: FLUoxetine 20 MG CAP PO (08:42)
[2018-01-25] MEDS: predniSONE 10 MG TAB PO (08:42)
[2018-01-25] MEDS: ATORVASTATIN 20 MG TAB PO (08:43)
[2018-01-25] MEDS: MULTIVITAMINS/MINERALS THERAP 1 TAB PO ×2 (08:43→19:49)
[2018-01-25] MEDS: SPIRONOLACTONE 25 MG TAB PO ×2 (08:43→16:50)
[2018-01-25] MEDS: metOLazone 2.5 MG TAB PO ×2 (08:43→10:50)
[2018-01-25] MEDS: POTASSIUM CHLORIDE 10 MEQ SR TABLET PO ×2 (08:43→19:47)
[2018-01-25] MEDS: CYANOCOBALAMIN 500 MCG TAB PO ×3 (08:44→17:16)
[2018-01-25] MEDS: ASPIRIN 81 MG ENTERIC TAB PO (08:44)
[2018-01-25] MEDS: BACTRIM 160MG/800MG DS TAB PO (08:44)
[2018-01-25] MEDS: SENOKOT S TAB PO ×3 (08:44→19:48)
[2018-01-25] MEDS: TAMSULOSIN 0.4 MG CAP PO (08:44)
[2018-01-25] MEDS: NEORAL 100 MG CAP (J7502)(C9438) PO ×2 (08:44→19:48)
[2018-01-25] MEDS: GABAPENTIN 300 MG CAP PO ×3 (08:44→19:47)
[2018-01-25] MEDS: OMEPRAZOLE 20 MG CAP PO ×2 (08:45→19:46)
[2018-01-25] MEDS: FEBUXOSTAT 40 MG TABLET (ULORIC) PO (10:50)
[2018-01-25 11:39] LABS: BEDSIDE GLUCOSE 145 MG/DL (83-110)
[2018-01-25 16:52] LABS: BEDSIDE GLUCOSE 218 MG/DL (83-110)
[2018-01-25] MEDS: metOLazone 5 MG TAB PO (19:48)
[2018-01-25 21:13] LABS: BEDSIDE GLUCOSE 137 MG/DL (83-110)
[2018-01-26] MEDS: HYDROcodone/APAP LIQUID 7.5-325MG 15ML UDC (LORTAB ELIXIR) PO ×4 (01:42→21:00)
[2018-01-26] MEDS: IPRATROPIUM 0.5MG/ALBUTEROL 2.5MG INH SOL UD 3ML (DUONEB)(J7620) NEB ×4 (02:00→20:49)
[2018-01-26 05:43] LABS: EOS % 0.1 % (0.0-3.0); HEMOGLOBIN 7.8 g/dl (13.5-17.5); IMMATURE GRANULOCYTE % 0.5 % (0-3.0); LYMPH # 1.2 10^3/uL (1.5-4.5); LYMPH % 9.2 % (24.0-44.0); MEAN CORPUSCULAR HEMOGLOBIN 28.5 pg (27.0-33.0); MEAN CORPUSCULAR HGB CONC 31.2 g/dl (32.0-36.5); MEAN CORPUSCULAR VOLUME 91.2 fl (80.0-96.0); MONO # 1.1 10^3/uL (0.0-0.8); MONO % 8.3 % (0.0-5.0); NEUTROPHILS # 10.6 10^3/uL (1.8-7.7); NEUTROPHILS % 81.9 % (36.0-66.0); PLATELET COUNT, AUTOMATED 231 10^3/uL (150-450); RED BLOOD COUNT 2.74 10^6/uL (4.30-6.10); RED CELL DISTRIBUTION WIDTH 15.9 % (11.5-14.5)
[2018-01-26 06:03] LABS: ALBUMIN 2.4 GM/DL (3.2-5.2); ALBUMIN/GLOBULIN RATIO 0.75 (1.00-1.93); ALKALINE PHOSPHATASE 45 U/L (45-117); ALT/SGPT 25 U/L (12-78); ANION GAP 5 MEQ/L (8-16); AST/SGOT 19 U/L (7-37); BILIRUBIN,TOTAL 0.5 MG/DL (0.2-1.0); BLOOD UREA NITROGEN 65 MG/DL (7-18); CARBON DIOXIDE LEVEL 33 MEQ/L (21-32); CHLORIDE LEVEL 100 MEQ/L (98-107); GLOMERULAR FILTRATION RATE 27.2 (>42); GLUCOSE, FASTING 102 MG/DL (70-100); MAGNESIUM LEVEL 2.4 MG/DL (1.8-2.4); POTASSIUM SERUM 4.2 MEQ/L (3.5-5.1); SODIUM LEVEL 138 MEQ/L (136-145); TOTAL PROTEIN 5.6 GM/DL (6.4-8.2)
[2018-01-26] MEDS: SLF 3 ML SYR IV ×3 (06:51→21:00)
[2018-01-26] MEDS: FUROSEMIDE injection 250 MG in D5W 225 ML IV (06:52)
[2018-01-26] MEDS: SENOKOT S TAB PO ×2 (08:10→20:59)
[2018-01-26] MEDS: OMEPRAZOLE 20 MG CAP PO ×2 (08:11→20:59)
[2018-01-26] MEDS: SPIRONOLACTONE 25 MG TAB PO (08:11)
[2018-01-26] MEDS: TAMSULOSIN 0.4 MG CAP PO (08:11)
[2018-01-26] MEDS: FLUoxetine 20 MG CAP PO (08:11)
[2018-01-26] MEDS: MULTIVITAMINS/MINERALS THERAP 1 TAB PO ×2 (08:11→20:59)
[2018-01-26] MEDS: ATORVASTATIN 20 MG TAB PO (08:12)
[2018-01-26] MEDS: POTASSIUM CHLORIDE 10 MEQ SR TABLET PO ×2 (08:12→20:59)
[2018-01-26] MEDS: CYANOCOBALAMIN 500 MCG TAB PO ×3 (08:12→17:13)
[2018-01-26] MEDS: GABAPENTIN 300 MG CAP PO ×3 (08:12→20:59)
[2018-01-26] MEDS: predniSONE 10 MG TAB PO (08:13)
[2018-01-26] MEDS: metOLazone 5 MG TAB PO (08:13)
[2018-01-26] MEDS: ASPIRIN 81 MG ENTERIC TAB PO (08:14)
[2018-01-26] MEDS: HumaLOG INSULIN (NovoLOG) PER UNIT SC ×4 (08:14→20:46)
[2018-01-26] MEDS: FEBUXOSTAT 40 MG TABLET (ULORIC) PO (08:14)
[2018-01-26] MEDS: NEORAL 100 MG CAP (J7502)(C9438) PO ×2 (08:15→20:59)
[2018-01-26] MEDS ORDERED: predniSONE 10 MG TAB PO (11:00)
[2018-01-26 11:53] LABS: BEDSIDE GLUCOSE 203 MG/DL (83-110)
[2018-01-26] MEDS: CHLOROTHIAZIDE 500 MG VIAL (J1205) IV (12:33)
[2018-01-26 16:48] LABS: BEDSIDE GLUCOSE 188 MG/DL (83-110)
[2018-01-26] MEDS: SPIRONOLACTONE 50 MG TAB PO (17:13)
[2018-01-26] MEDS: FUROSEMIDE 100 MG/10 ML VIAL (J1940) IV ×2 (18:09→23:50)
[2018-01-26 20:51] LABS: BEDSIDE GLUCOSE 132 MG/DL (83-110)
[2018-01-26] MEDS: zolPIDEM TARTRATE 5 MG TAB PO (22:13)
[2018-01-27 02:09] LABS: ABG BASE EXCESS 8.3 (-2.0-2.0); ABG HCO3 33.6 MEQ/L (22.0-26.0); ABG O2 SATURATION 97.2 % (95.0-99.0); ABG PARTIAL PRESSURE CO2 51.8 mmHg (35.0-45.0); ABG PARTIAL PRESSURE O2 89.4 mmHg (75.0-100.0); ABG TOTAL CO2 35.2 MEQ/L (23.0-31.0)
[2018-01-27] MEDS: metOLazone 5 MG TAB PO (02:09)
[2018-01-27] MEDS: IPRATROPIUM 0.5MG/ALBUTEROL 2.5MG INH SOL UD 3ML (DUONEB)(J7620) NEB ×4 (03:15→20:33)
[2018-01-27] MEDS: HYDROcodone/APAP LIQUID 7.5-325MG 15ML UDC (LORTAB ELIXIR) PO ×3 (04:06→18:22)
[2018-01-27] MEDS: FUROSEMIDE 100 MG/10 ML VIAL (J1940) IV ×4 (05:37→23:35)
[2018-01-27] MEDS: SLF 3 ML SYR IV ×3 (05:38→20:53)
[2018-01-27 05:59] LABS: BASO % 0.1 % (0.0-1.0); EOS % 0.2 % (0.0-3.0); HEMATOCRIT 24.5 % (42.0-52.0); HEMOGLOBIN 7.5 g/dl (13.5-17.5); IMMATURE GRANULOCYTE % 0.6 % (0-3.0); LYMPH % 7.1 % (24.0-44.0); MEAN CORPUSCULAR HEMOGLOBIN 28.5 pg (27.0-33.0); MEAN CORPUSCULAR HGB CONC 30.6 g/dl (32.0-36.5); MEAN CORPUSCULAR VOLUME 93.2 fl (80.0-96.0); MONO # 0.9 10^3/uL (0.0-0.8); MONO % 6.2 % (0.0-5.0); NEUTROPHILS # 12.4 10^3/uL (1.8-7.7); NEUTROPHILS % 85.8 % (36.0-66.0); PLATELET COUNT, AUTOMATED 230 10^3/uL (150-450); RED BLOOD COUNT 2.63 10^6/uL (4.30-6.10); WHITE BLOOD COUNT 14.5 10^3/uL (4.0-10.0)
[2018-01-27 06:28] LABS: ALBUMIN 2.5 GM/DL (3.2-5.2); ALBUMIN/GLOBULIN RATIO 0.83 (1.00-1.93); ALKALINE PHOSPHATASE 47 U/L (45-117); ALT/SGPT 23 U/L (12-78); ANION GAP 4 MEQ/L (8-16); AST/SGOT 19 U/L (7-37); BILIRUBIN,TOTAL 0.7 MG/DL (0.2-1.0); BLOOD UREA NITROGEN 71 MG/DL (7-18); CARBON DIOXIDE LEVEL 36 MEQ/L (21-32); CHLORIDE LEVEL 100 MEQ/L (98-107); CREATININE FOR GFR 2.63 MG/DL (0.70-1.30); GLOMERULAR FILTRATION RATE 25.6 (>42); GLUCOSE, FASTING 109 MG/DL (70-100); MAGNESIUM LEVEL 2.4 MG/DL (1.8-2.4); POTASSIUM SERUM 4.1 MEQ/L (3.5-5.1); SODIUM LEVEL 140 MEQ/L (136-145); TOTAL PROTEIN 5.5 GM/DL (6.4-8.2)
[2018-01-27] MEDS: HumaLOG INSULIN (NovoLOG) PER UNIT SC ×4 (07:30→20:25)
[2018-01-27] MEDS ORDERED: LIDOCAINE 2% MDV 20 ML VIAL As Ordered ×2 (07:38→07:46)
[2018-01-27] MEDS ORDERED: HEPARIN 1,000 UNITS/ML 10ML VIAL (FOR RADIOLOGY& DIALYSIS ONLY) As Ordered ×2 (07:38→09:57)
[2018-01-27] MEDS: CYANOCOBALAMIN 500 MCG TAB PO ×3 (08:00→17:58)
[2018-01-27] MEDS: POTASSIUM CHLORIDE 10 MEQ SR TABLET PO ×2 (09:00→20:53)
[2018-01-27] MEDS: OMEPRAZOLE 20 MG CAP PO ×2 (09:00→20:53)
[2018-01-27] MEDS: GABAPENTIN 300 MG CAP PO ×3 (09:00→20:53)
[2018-01-27] MEDS ORDERED: PIPERACILLIN/TAZOBACTAM SOD 2.25 GM in D5W MINI-BAG PLUS 50 ML IV (09:00)
[2018-01-27] MEDS: MULTIVITAMINS/MINERALS THERAP 1 TAB PO ×2 (09:00→20:53)
[2018-01-27] MEDS: SENOKOT S TAB PO ×2 (09:00→20:53)
[2018-01-27] MEDS: SPIRONOLACTONE 50 MG TAB PO ×2 (09:00→17:59)
[2018-01-27 11:06] LABS: HEPATITIS B SURFACE ANTIBODY NEGATIVE (POSITIVE)
[2018-01-27] MEDS: HEPARIN 1,000 UNITS/ML 10ML VIAL (FOR RADIOLOGY& DIALYSIS ONLY) IV (11:15)
[2018-01-27] MEDS: HEPARIN 1,000 UNITS/ML 10ML VIAL (FOR RADIOLOGY& DIALYSIS ONLY) XX (11:15)
[2018-01-27 11:17] LABS: HEPATITIS B SURFACE ANTIGEN NEGATIVE (NEGATIVE)
[2018-01-27 11:45] LABS: HEPATITIS B CORE ANTIBODY IGM NEGATIVE (NEGATIVE); HEPATITIS C VIRUS ABY INDEX 0.1 INDEX (<0.8)
[2018-01-27] MEDS: PIPERACILLIN/TAZOBACTAM SOD 2.25 GM in D5W MINI-BAG PLUS 50 ML IV ×2 (12:00→17:59)
[2018-01-27] MEDS: FLUoxetine 20 MG CAP PO (15:28)
[2018-01-27] MEDS: VANCOMYCIN HCL 1,000 MG, VIAL MATE ADAPTER 1 EACH in D5W 250 ML IV ×2 (15:28→16:35)
[2018-01-27] MEDS: FEBUXOSTAT 40 MG TABLET (ULORIC) PO (15:29)
[2018-01-27] MEDS: ASPIRIN 81 MG ENTERIC TAB PO (15:31)
[2018-01-27] MEDS: ATORVASTATIN 20 MG TAB PO (15:31)
[2018-01-27] MEDS: TAMSULOSIN 0.4 MG CAP PO (15:31)
[2018-01-27] MEDS: predniSONE 20 MG TAB PO (15:31)
[2018-01-27 16:56] LABS: BEDSIDE GLUCOSE 139 MG/DL (83-110)
[2018-01-27 20:36] LABS: BEDSIDE GLUCOSE 161 MG/DL (83-110)
[2018-01-28] MEDS: PIPERACILLIN/TAZOBACTAM SOD 2.25 GM in D5W MINI-BAG PLUS 50 ML IV ×4 (00:16→18:29)
[2018-01-28] MEDS: HYDROcodone/APAP LIQUID 7.5-325MG 15ML UDC (LORTAB ELIXIR) PO ×3 (00:52→14:35)
[2018-01-28] MEDS: IPRATROPIUM 0.5MG/ALBUTEROL 2.5MG INH SOL UD 3ML (DUONEB)(J7620) NEB ×4 (01:56→19:58)
[2018-01-28 05:33] LABS: BASO % 0.1 % (0.0-1.0); HEMOGLOBIN 7.9 g/dl (13.5-17.5); IMMATURE GRANULOCYTE % 0.7 % (0-3.0); LYMPH # 0.7 10^3/uL (1.5-4.5); LYMPH % 4.9 % (24.0-44.0); MEAN CORPUSCULAR HEMOGLOBIN 28.8 pg (27.0-33.0); MEAN CORPUSCULAR HGB CONC 31.6 g/dl (32.0-36.5); MEAN CORPUSCULAR VOLUME 91.2 fl (80.0-96.0); MONO # 0.6 10^3/uL (0.0-0.8); MONO % 4.3 % (0.0-5.0); NEUTROPHILS # 12.4 10^3/uL (1.8-7.7); PLATELET COUNT, AUTOMATED 223 10^3/uL (150-450); RED BLOOD COUNT 2.74 10^6/uL (4.30-6.10); RED CELL DISTRIBUTION WIDTH 15.8 % (11.5-14.5); WHITE BLOOD COUNT 13.7 10^3/uL (4.0-10.0)
[2018-01-28] MEDS: ATORVASTATIN 20 MG TAB PO (05:42)
[2018-01-28] MEDS: FEBUXOSTAT 40 MG TABLET (ULORIC) PO (05:43)
[2018-01-28] MEDS: TAMSULOSIN 0.4 MG CAP PO (05:43)
[2018-01-28] MEDS: SENOKOT S TAB PO ×2 (05:43→21:14)
[2018-01-28] MEDS: FLUoxetine 20 MG CAP PO (05:43)
[2018-01-28] MEDS: ASPIRIN 81 MG ENTERIC TAB PO (05:43)
[2018-01-28] MEDS: GABAPENTIN 300 MG CAP PO ×3 (05:43→21:14)
[2018-01-28] MEDS: MULTIVITAMINS/MINERALS THERAP 1 TAB PO ×2 (05:44→21:14)
[2018-01-28] MEDS: OMEPRAZOLE 20 MG CAP PO ×2 (05:44→21:14)
[2018-01-28] MEDS: POTASSIUM CHLORIDE 10 MEQ SR TABLET PO ×2 (05:44→21:14)
[2018-01-28] MEDS: predniSONE 20 MG TAB PO (05:44)
[2018-01-28] MEDS: FUROSEMIDE 100 MG/10 ML VIAL (J1940) IV ×3 (05:45→18:30)
[2018-01-28] MEDS: SLF 3 ML SYR IV ×3 (05:45→21:16)
[2018-01-28 05:57] LABS: ALBUMIN 2.3 GM/DL (3.2-5.2); ALBUMIN/GLOBULIN RATIO 0.72 (1.00-1.93); ALKALINE PHOSPHATASE 47 U/L (45-117); ALT/SGPT 30 U/L (12-78); ANION GAP 9 MEQ/L (8-16); AST/SGOT 30 U/L (7-37); BLOOD UREA NITROGEN 50 MG/DL (7-18); CALCIUM LEVEL 8.2 MG/DL (8.8-10.2); CARBON DIOXIDE LEVEL 32 MEQ/L (21-32); CHLORIDE LEVEL 102 MEQ/L (98-107); CREATININE FOR GFR 2.18 MG/DL (0.70-1.30); GLOMERULAR FILTRATION RATE 31.8 (>42); GLUCOSE, FASTING 114 MG/DL (70-100); POTASSIUM SERUM 4.4 MEQ/L (3.5-5.1); SODIUM LEVEL 143 MEQ/L (136-145); TOTAL PROTEIN 5.5 GM/DL (6.4-8.2); VANCOMYCIN LEVEL TROUGH 15.1 UG/ML (10.0-20.0)
[2018-01-28] MEDS: SPIRONOLACTONE 50 MG TAB PO ×2 (07:34→16:51)
[2018-01-28] MEDS: HumaLOG INSULIN (NovoLOG) PER UNIT SC ×4 (07:34→21:14)
[2018-01-28] MEDS: CYANOCOBALAMIN 500 MCG TAB PO ×3 (08:00→18:29)
[2018-01-28 08:06] LABS: HEPATITIS B CORE ANTIBODY IGG Negative (Negative)
[2018-01-28] MEDS: HEPARIN 1,000 UNITS/ML 10ML VIAL (FOR RADIOLOGY& DIALYSIS ONLY) IV (10:00)
[2018-01-28] MEDS: HEPARIN 1,000 UNITS/ML 10ML VIAL (FOR RADIOLOGY& DIALYSIS ONLY) XX (10:00)
[2018-01-28] MEDS ORDERED: ISOVUE-370 76% 100ML VIAL (Q9967) As Ordered (12:50)
[2018-01-28] MEDS: VANCOMYCIN HCL 1,000 MG, VIAL MATE ADAPTER 1 EACH in D5W 250 ML IV (15:38)
[2018-01-28] MEDS: **VANCO AFTER HD** MISC XX (16:00)
[2018-01-28 16:48] LABS: BEDSIDE GLUCOSE 206 MG/DL (83-110)
[2018-01-28] MEDS: HYDROCORTISONE INJection 500 MG in NS 50 ML IV (16:51)
[2018-01-28 21:14] LABS: BEDSIDE GLUCOSE 126 MG/DL (83-110)
[2018-01-28] MEDS: PILL CRUSHER/CUTTER 1 EACH XX (21:45)
[2018-01-28] MEDS: zolPIDEM TARTRATE 5 MG TAB PO (21:45)
[2018-01-29] MEDS: PIPERACILLIN/TAZOBACTAM SOD 2.25 GM in D5W MINI-BAG PLUS 50 ML IV ×2 (00:34→05:48)
[2018-01-29] MEDS: FUROSEMIDE 100 MG/10 ML VIAL (J1940) IV ×2 (00:34→05:49)
[2018-01-29] MEDS: IPRATROPIUM 0.5MG/ALBUTEROL 2.5MG INH SOL UD 3ML (DUONEB)(J7620) NEB ×4 (01:27→19:42)
[2018-01-29] MEDS: HYDROcodone/APAP LIQUID 7.5-325MG 15ML UDC (LORTAB ELIXIR) PO ×5 (01:57→19:34)
[2018-01-29 05:30] LABS: HEMATOCRIT 27.3 % (42.0-52.0); HEMOGLOBIN 8.4 g/dl (13.5-17.5); IMMATURE GRANULOCYTE % 0.6 % (0-3.0); LYMPH # 0.4 10^3/uL (1.5-4.5); LYMPH % 2.5 % (24.0-44.0); MEAN CORPUSCULAR HEMOGLOBIN 28.6 pg (27.0-33.0); MEAN CORPUSCULAR HGB CONC 30.8 g/dl (32.0-36.5); MEAN CORPUSCULAR VOLUME 92.9 fl (80.0-96.0); MONO # 0.5 10^3/uL (0.0-0.8); MONO % 3.2 % (0.0-5.0); NEUTROPHILS # 14.7 10^3/uL (1.8-7.7); NEUTROPHILS % 93.7 % (36.0-66.0); PLATELET COUNT, AUTOMATED 246 10^3/uL (150-450); RED BLOOD COUNT 2.94 10^6/uL (4.30-6.10); RED CELL DISTRIBUTION WIDTH 15.9 % (11.5-14.5); WHITE BLOOD COUNT 15.7 10^3/uL (4.0-10.0)
[2018-01-29 05:42] LABS: ALBUMIN 2.3 GM/DL (3.2-5.2); ALBUMIN/GLOBULIN RATIO 0.64 (1.00-1.93); ALKALINE PHOSPHATASE 48 U/L (45-117); ALT/SGPT 30 U/L (12-78); ANION GAP 9 MEQ/L (8-16); AST/SGOT 25 U/L (7-37); BILIRUBIN,TOTAL 0.9 MG/DL (0.2-1.0); BLOOD UREA NITROGEN 61 MG/DL (7-18); CALCIUM LEVEL 8.4 MG/DL (8.8-10.2); CARBON DIOXIDE LEVEL 31 MEQ/L (21-32); CHLORIDE LEVEL 100 MEQ/L (98-107); CREATININE FOR GFR 2.48 MG/DL (0.70-1.30); GLOMERULAR FILTRATION RATE 27.4 (>42); GLUCOSE, FASTING 160 MG/DL (70-100); MAGNESIUM LEVEL 2.1 MG/DL (1.8-2.4); POTASSIUM SERUM 4.3 MEQ/L (3.5-5.1); SODIUM LEVEL 140 MEQ/L (136-145); TOTAL PROTEIN 5.9 GM/DL (6.4-8.2); VANCOMYCIN RANDOM 17.4 UG/ML
[2018-01-29] MEDS: SLF 3 ML SYR IV ×3 (05:48→21:10)
[2018-01-29] MEDS: HumaLOG INSULIN (NovoLOG) PER UNIT SC ×4 (08:05→21:08)
[2018-01-29] MEDS: GABAPENTIN 300 MG CAP PO ×3 (08:55→21:07)
[2018-01-29] MEDS: FEBUXOSTAT 40 MG TABLET (ULORIC) PO (08:55)
[2018-01-29] MEDS: CYANOCOBALAMIN 500 MCG TAB PO ×3 (08:55→17:51)
[2018-01-29] MEDS: FLUoxetine 20 MG CAP PO (08:55)
[2018-01-29] MEDS: OMEPRAZOLE 20 MG CAP PO ×2 (08:55→21:07)
[2018-01-29] MEDS: POTASSIUM CHLORIDE 10 MEQ SR TABLET PO (08:55)
[2018-01-29] MEDS: MULTIVITAMINS/MINERALS THERAP 1 TAB PO ×2 (08:56→21:07)
[2018-01-29] MEDS: SENOKOT S TAB PO ×2 (08:56→21:07)
[2018-01-29] MEDS: ATORVASTATIN 20 MG TAB PO (08:56)
[2018-01-29] MEDS: ASPIRIN 81 MG ENTERIC TAB PO (08:56)
[2018-01-29] MEDS: SPIRONOLACTONE 50 MG TAB PO (08:56)
[2018-01-29] MEDS: TAMSULOSIN 0.4 MG CAP PO (08:56)
[2018-01-29 11:46] LABS: BEDSIDE GLUCOSE 117 MG/DL (83-110)
[2018-01-29] MEDS: FLUCONAZOLE 100 MG TAB PO (12:49)
[2018-01-29] MEDS: MORPHINE 4 MG/ML 1ML VIAL/SYRINGE (J2270) IV (13:00)
[2018-01-29] MEDS: CYCLOPHOSPHAMIDE 25 MG PO ×2 (13:22→21:06)
[2018-01-29] MEDS: **VANCO AFTER HD** MISC XX (16:00)
[2018-01-29] MEDS: HYDROCORTISONE INJection 1,000 MG in NS 50 ML IV (16:21)
[2018-01-29] MEDS: VANCOMYCIN HCL 1,000 MG, VIAL MATE ADAPTER 1 EACH in D5W 250 ML IV (16:48)
[2018-01-29 16:52] LABS: BEDSIDE GLUCOSE 164 MG/DL (83-110)
[2018-01-29 21:02] LABS: BEDSIDE GLUCOSE 141 MG/DL (83-110)
[2018-01-29] MEDS: zolPIDEM TARTRATE 5 MG TAB PO (21:21)
[2018-01-30] MEDS: HYDROcodone/APAP LIQUID 7.5-325MG 15ML UDC (LORTAB ELIXIR) PO ×5 (00:48→20:20)
[2018-01-30] MEDS: IPRATROPIUM 0.5MG/ALBUTEROL 2.5MG INH SOL UD 3ML (DUONEB)(J7620) NEB ×4 (00:57→19:37)
[2018-01-30 04:36] LABS: HEMATOCRIT 24.1 % (42.0-52.0); HEMOGLOBIN 7.6 g/dl (13.5-17.5); IMMATURE GRANULOCYTE % 0.5 % (0-3.0); LYMPH % 1.9 % (24.0-44.0); MEAN CORPUSCULAR HEMOGLOBIN 28.8 pg (27.0-33.0); MEAN CORPUSCULAR HGB CONC 31.5 g/dl (32.0-36.5); MEAN CORPUSCULAR VOLUME 91.3 fl (80.0-96.0); MONO # 0.2 10^3/uL (0.0-0.8); MONO % 1.8 % (0.0-5.0); NEUTROPHILS % 95.8 % (36.0-66.0); PLATELET COUNT, AUTOMATED 239 10^3/uL (150-450); RED BLOOD COUNT 2.64 10^6/uL (4.30-6.10); RED CELL DISTRIBUTION WIDTH 15.7 % (11.5-14.5); WHITE BLOOD COUNT 12.5 10^3/uL (4.0-10.0)
[2018-01-30 04:57] LABS: LYMPH # 0.2 10^3/uL (1.5-4.5); POSITIVE DIFF POS FLAG
[2018-01-30 04:59] LABS: ALBUMIN 2.2 GM/DL (3.2-5.2); ALBUMIN/GLOBULIN RATIO 0.61 (1.00-1.93); ALKALINE PHOSPHATASE 50 U/L (45-117); ALT/SGPT 27 U/L (12-78); ANION GAP 5 MEQ/L (8-16); AST/SGOT 18 U/L (7-37); BILIRUBIN,TOTAL 0.7 MG/DL (0.2-1.0); BLOOD UREA NITROGEN 35 MG/DL (7-18); CALCIUM LEVEL 8.6 MG/DL (8.8-10.2); CARBON DIOXIDE LEVEL 31 MEQ/L (21-32); CHLORIDE LEVEL 103 MEQ/L (98-107); CREATININE FOR GFR 2.08 MG/DL (0.70-1.30); GLOMERULAR FILTRATION RATE 33.6 (>42); GLUCOSE, FASTING 156 MG/DL (70-100); POTASSIUM SERUM 4.5 MEQ/L (3.5-5.1); SODIUM LEVEL 139 MEQ/L (136-145); TOTAL PROTEIN 5.8 GM/DL (6.4-8.2); VANCOMYCIN RANDOM 17.6 UG/ML
[2018-01-30] MEDS: SLF 3 ML SYR IV ×3 (06:04→20:21)
[2018-01-30] MEDS: HumaLOG INSULIN (NovoLOG) PER UNIT SC ×4 (07:34→20:21)
[2018-01-30] MEDS: CYANOCOBALAMIN 500 MCG TAB PO ×3 (07:35→17:13)
[2018-01-30] MEDS: SENOKOT S TAB PO ×2 (09:00→20:20)
[2018-01-30] MEDS: CYCLOPHOSPHAMIDE 25 MG PO ×2 (09:28→20:20)
[2018-01-30] MEDS: FLUoxetine 20 MG CAP PO (09:30)
[2018-01-30] MEDS: ASPIRIN 81 MG ENTERIC TAB PO (09:30)
[2018-01-30] MEDS: TAMSULOSIN 0.4 MG CAP PO (09:31)
[2018-01-30] MEDS: OMEPRAZOLE 20 MG CAP PO ×2 (09:31→20:21)
[2018-01-30] MEDS: FLUCONAZOLE 100 MG TAB PO (09:32)
[2018-01-30] MEDS: ATORVASTATIN 20 MG TAB PO (09:32)
[2018-01-30] MEDS: MULTIVITAMINS/MINERALS THERAP 1 TAB PO ×2 (09:32→20:21)
[2018-01-30] MEDS: GABAPENTIN 300 MG CAP PO ×3 (09:33→20:20)
[2018-01-30 13:11] LABS: BEDSIDE GLUCOSE 139 MG/DL (83-110)
[2018-01-30] MEDS: **VANCO AFTER HD** MISC XX (16:00)
[2018-01-30] MEDS: VANCOMYCIN HCL 1,000 MG, VIAL MATE ADAPTER 1 EACH in D5W 250 ML IV (17:03)
[2018-01-30] MEDS: HYDROCORTISONE INJection 1,000 MG in NS 50 ML IV (17:04)
[2018-01-30 17:21] LABS: BEDSIDE GLUCOSE 204 MG/DL (83-110)
[2018-01-30 20:19] LABS: BEDSIDE GLUCOSE 157 MG/DL (83-110)
[2018-01-30] MEDS: zolPIDEM TARTRATE 5 MG TAB PO (20:24)
[2018-01-31 00:36] LABS: IMMEDIATE SPIN CROSSMATCH 1 2
[2018-01-31] MEDS: IPRATROPIUM 0.5MG/ALBUTEROL 2.5MG INH SOL UD 3ML (DUONEB)(J7620) NEB ×4 (02:02→20:05)
[2018-01-31] MEDS: HYDROcodone/APAP LIQUID 7.5-325MG 15ML UDC (LORTAB ELIXIR) PO ×4 (02:36→17:26)
[2018-01-31 04:44] LABS: HEMATOCRIT 28.2 % (42.0-52.0); HEMOGLOBIN 8.9 g/dl (13.5-17.5); MEAN CORPUSCULAR HEMOGLOBIN 28.5 pg (27.0-33.0); MEAN CORPUSCULAR HGB CONC 31.6 g/dl (32.0-36.5); MEAN CORPUSCULAR VOLUME 90.4 fl (80.0-96.0); PLATELET COUNT, AUTOMATED 238 10^3/uL (150-450); RED BLOOD COUNT 3.12 10^6/uL (4.30-6.10); RED CELL DISTRIBUTION WIDTH 16.6 % (11.5-14.5); WHITE BLOOD COUNT 14.1 10^3/uL (4.0-10.0)
[2018-01-31 05:05] LABS: ALBUMIN 2.3 GM/DL (3.2-5.2); ALBUMIN/GLOBULIN RATIO 0.64 (1.00-1.93); ALKALINE PHOSPHATASE 54 U/L (45-117); ALT/SGPT 29 U/L (12-78); ANION GAP 7 MEQ/L (8-16); AST/SGOT 20 U/L (7-37); BILIRUBIN,TOTAL 1.1 MG/DL (0.2-1.0); BLOOD UREA NITROGEN 51 MG/DL (7-18); CALCIUM LEVEL 8.1 MG/DL (8.8-10.2); CARBON DIOXIDE LEVEL 29 MEQ/L (21-32); CHLORIDE LEVEL 102 MEQ/L (98-107); CREATININE FOR GFR 2.75 MG/DL (0.70-1.30); GLOMERULAR FILTRATION RATE 24.3 (>42); GLUCOSE, FASTING 151 MG/DL (70-100); POTASSIUM SERUM 4.6 MEQ/L (3.5-5.1); SODIUM LEVEL 138 MEQ/L (136-145); TOTAL PROTEIN 5.9 GM/DL (6.4-8.2); VANCOMYCIN RANDOM 19.9 UG/ML
[2018-01-31] MEDS: SLF 3 ML SYR IV ×3 (06:00→20:25)
[2018-01-31] MEDS: HumaLOG INSULIN (NovoLOG) PER UNIT SC ×4 (07:48→20:25)
[2018-01-31] MEDS: CYANOCOBALAMIN 500 MCG TAB PO ×3 (07:52→17:07)
[2018-01-31] MEDS: SENOKOT S TAB PO ×2 (09:00→20:25)
[2018-01-31] MEDS: CYCLOPHOSPHAMIDE 25 MG PO ×2 (09:01→20:25)
[2018-01-31] MEDS: OMEPRAZOLE 20 MG CAP PO ×2 (09:05→20:25)
[2018-01-31] MEDS: MULTIVITAMINS/MINERALS THERAP 1 TAB PO ×2 (09:05→20:24)
[2018-01-31] MEDS: FLUCONAZOLE 100 MG TAB PO (09:05)
[2018-01-31] MEDS: FLUoxetine 20 MG CAP PO (09:06)
[2018-01-31] MEDS: ATORVASTATIN 20 MG TAB PO (09:06)
[2018-01-31] MEDS: TAMSULOSIN 0.4 MG CAP PO (09:08)
[2018-01-31] MEDS: ASPIRIN 81 MG ENTERIC TAB PO (09:08)
[2018-01-31] MEDS: GABAPENTIN 300 MG CAP PO ×3 (09:08→20:24)
[2018-01-31 11:46] LABS: BEDSIDE GLUCOSE 199 MG/DL (83-110)
[2018-01-31] MEDS: ONDANSETRON 4MG/2ML VIAL (J2405) IV (12:06)
[2018-01-31] MEDS: **VANCO AFTER HD** MISC XX (16:00)
[2018-01-31 16:49] LABS: BEDSIDE GLUCOSE 99 MG/DL (83-110)
[2018-01-31] MEDS: HYDROCORTISONE INJection 1,000 MG in NS 50 ML IV (17:08)
[2018-01-31 19:33] LABS: BEDSIDE GLUCOSE 203 MG/DL (83-110)
[2018-02-01] MEDS: HYDROcodone/APAP LIQUID 7.5-325MG 15ML UDC (LORTAB ELIXIR) PO ×4 (01:08→20:50)
[2018-02-01] MEDS: zolPIDEM TARTRATE 5 MG TAB PO ×2 (01:13→20:46)
[2018-02-01] MEDS: IPRATROPIUM 0.5MG/ALBUTEROL 2.5MG INH SOL UD 3ML (DUONEB)(J7620) NEB ×4 (01:41→20:42)
[2018-02-01 04:24] LABS: HEMATOCRIT 28.1 % (42.0-52.0); HEMOGLOBIN 8.7 g/dl (13.5-17.5); MEAN CORPUSCULAR HEMOGLOBIN 28.7 pg (27.0-33.0); MEAN CORPUSCULAR VOLUME 92.7 fl (80.0-96.0); PLATELET COUNT, AUTOMATED 221 10^3/uL (150-450); RED BLOOD COUNT 3.03 10^6/uL (4.30-6.10); RED CELL DISTRIBUTION WIDTH 16.4 % (11.5-14.5)
[2018-02-01 04:51] LABS: ALBUMIN 2.4 GM/DL (3.2-5.2); ALBUMIN/GLOBULIN RATIO 0.73 (1.00-1.93); ALKALINE PHOSPHATASE 52 U/L (45-117); ALT/SGPT 28 U/L (12-78); ANION GAP 4 MEQ/L (8-16); AST/SGOT 17 U/L (7-37); BILIRUBIN,TOTAL 0.5 MG/DL (0.2-1.0); BLOOD UREA NITROGEN 67 MG/DL (7-18); CARBON DIOXIDE LEVEL 30 MEQ/L (21-32); CHLORIDE LEVEL 102 MEQ/L (98-107); CREATININE FOR GFR 2.82 MG/DL (0.70-1.30); GLOMERULAR FILTRATION RATE 23.6 (>42); GLUCOSE, FASTING 151 MG/DL (70-100); POTASSIUM SERUM 4.7 MEQ/L (3.5-5.1); SODIUM LEVEL 136 MEQ/L (136-145); TOTAL PROTEIN 5.7 GM/DL (6.4-8.2); VANCOMYCIN RANDOM 13.4 UG/ML
[2018-02-01] MEDS: SLF 3 ML SYR IV ×3 (06:23→20:48)
[2018-02-01] MEDS: HumaLOG INSULIN (NovoLOG) PER UNIT SC ×4 (07:30→21:07)
[2018-02-01] MEDS: FLUCONAZOLE 100 MG TAB PO (08:12)
[2018-02-01] MEDS: FLUoxetine 20 MG CAP PO (08:12)
[2018-02-01] MEDS: ATORVASTATIN 20 MG TAB PO (08:12)
[2018-02-01] MEDS: OMEPRAZOLE 20 MG CAP PO ×2 (08:12→20:47)
[2018-02-01] MEDS: TAMSULOSIN 0.4 MG CAP PO (08:13)
[2018-02-01] MEDS: MULTIVITAMINS/MINERALS THERAP 1 TAB PO ×2 (08:13→20:47)
[2018-02-01] MEDS: CYANOCOBALAMIN 500 MCG TAB PO ×3 (08:13→17:49)
[2018-02-01] MEDS: SENOKOT S TAB PO ×2 (09:00→20:47)
[2018-02-01] MEDS: HEPARIN 1,000 UNITS/ML 10ML VIAL (FOR RADIOLOGY& DIALYSIS ONLY) IV (10:00)
[2018-02-01] MEDS: HEPARIN 1,000 UNITS/ML 10ML VIAL (FOR RADIOLOGY& DIALYSIS ONLY) XX (10:00)
[2018-02-01 11:47] LABS: BEDSIDE GLUCOSE 131 MG/DL (83-110)
[2018-02-01] MEDS: CYCLOPHOSPHAMIDE 25 MG PO ×2 (12:58→20:47)
[2018-02-01] MEDS: GABAPENTIN 300 MG CAP PO ×3 (12:59→20:47)
[2018-02-01] MEDS: ASPIRIN 81 MG ENTERIC TAB PO (12:59)
[2018-02-01] MEDS: predniSONE 20 MG TAB PO (12:59)
[2018-02-01] MEDS: ONDANSETRON 4MG/2ML VIAL (J2405) IV (13:00)
[2018-02-01] MEDS: **VANCO AFTER HD** MISC XX (16:00)
[2018-02-01] MEDS: VANCOMYCIN HCL 1,000 MG, VIAL MATE ADAPTER 1 EACH in D5W 250 ML IV (16:42)
[2018-02-01 17:22] LABS: BEDSIDE GLUCOSE 190 MG/DL (83-110)
[2018-02-01 21:01] LABS: BEDSIDE GLUCOSE 136 MG/DL (83-110)
[2018-02-02] MEDS: IPRATROPIUM 0.5MG/ALBUTEROL 2.5MG INH SOL UD 3ML (DUONEB)(J7620) NEB ×4 (01:19→19:58)
[2018-02-02] MEDS: HYDROcodone/APAP LIQUID 7.5-325MG 15ML UDC (LORTAB ELIXIR) PO ×5 (01:50→20:39)
[2018-02-02 04:59] LABS: HEMATOCRIT 27.9 % (42.0-52.0); HEMOGLOBIN 8.5 g/dl (13.5-17.5); MEAN CORPUSCULAR HEMOGLOBIN 28.3 pg (27.0-33.0); MEAN CORPUSCULAR HGB CONC 30.5 g/dl (32.0-36.5); PLATELET COUNT, AUTOMATED 216 10^3/uL (150-450); RED CELL DISTRIBUTION WIDTH 15.6 % (11.5-14.5); WHITE BLOOD COUNT 13.6 10^3/uL (4.0-10.0)
[2018-02-02 05:22] LABS: ALBUMIN 2.4 GM/DL (3.2-5.2); ALBUMIN/GLOBULIN RATIO 0.75 (1.00-1.93); ALKALINE PHOSPHATASE 53 U/L (45-117); ALT/SGPT 24 U/L (12-78); ANION GAP 6 MEQ/L (8-16); AST/SGOT 13 U/L (7-37); BILIRUBIN,TOTAL 0.4 MG/DL (0.2-1.0); BLOOD UREA NITROGEN 45 MG/DL (7-18); CALCIUM LEVEL 7.8 MG/DL (8.8-10.2); CARBON DIOXIDE LEVEL 31 MEQ/L (21-32); CHLORIDE LEVEL 102 MEQ/L (98-107); CREATININE FOR GFR 2.21 MG/DL (0.70-1.30); GLOMERULAR FILTRATION RATE 31.3 (>42); GLUCOSE, FASTING 131 MG/DL (70-100); POTASSIUM SERUM 4.2 MEQ/L (3.5-5.1); SODIUM LEVEL 139 MEQ/L (136-145); TOTAL PROTEIN 5.6 GM/DL (6.4-8.2); VANCOMYCIN RANDOM 17.3 UG/ML
[2018-02-02] MEDS: SLF 3 ML SYR IV ×3 (06:11→22:00)
[2018-02-02] MEDS: HumaLOG INSULIN (NovoLOG) PER UNIT SC ×4 (07:45→20:43)
[2018-02-02] MEDS: CYANOCOBALAMIN 500 MCG TAB PO ×3 (07:45→17:52)
[2018-02-02] MEDS: SENOKOT S TAB PO ×2 (09:00→20:43)
[2018-02-02] MEDS: MULTIVITAMINS/MINERALS THERAP 1 TAB PO ×2 (09:08→20:41)
[2018-02-02] MEDS: FLUCONAZOLE 100 MG TAB PO (09:08)
[2018-02-02] MEDS: CYCLOPHOSPHAMIDE 25 MG PO ×2 (09:08→20:40)
[2018-02-02] MEDS: predniSONE 20 MG TAB PO (09:08)
[2018-02-02] MEDS: TAMSULOSIN 0.4 MG CAP PO (09:08)
[2018-02-02] MEDS: ASPIRIN 81 MG ENTERIC TAB PO (09:09)
[2018-02-02] MEDS: FLUoxetine 20 MG CAP PO (09:09)
[2018-02-02] MEDS: GABAPENTIN 300 MG CAP PO ×2 (09:09→20:41)
[2018-02-02] MEDS: OMEPRAZOLE 20 MG CAP PO ×2 (09:09→20:41)
[2018-02-02] MEDS: ATORVASTATIN 20 MG TAB PO (09:09)
[2018-02-02 11:59] LABS: BEDSIDE GLUCOSE 129 MG/DL (83-110)
[2018-02-02] MEDS: HEPARIN 1,000 UNITS/ML 10ML VIAL (FOR RADIOLOGY& DIALYSIS ONLY) XX (12:00)
[2018-02-02] MEDS: HEPARIN 1,000 UNITS/ML 10ML VIAL (FOR RADIOLOGY& DIALYSIS ONLY) IV (12:00)
[2018-02-02] MEDS: VANCOMYCIN HCL 1,000 MG, VIAL MATE ADAPTER 1 EACH in D5W 250 ML IV (13:51)
[2018-02-02] MEDS: **VANCO AFTER HD** MISC XX (16:00)
[2018-02-02 17:32] LABS: BEDSIDE GLUCOSE 256 MG/DL (83-110)
[2018-02-02 20:33] LABS: BEDSIDE GLUCOSE 128 MG/DL (83-110)
[2018-02-02] MEDS: zolPIDEM TARTRATE 5 MG TAB PO (20:42)
[2018-02-03 00:07] LABS: ANCA-ATYPICAL <1:20 titer (Neg:<1:20); ANTI-GLOMERULAR BASEMENT MEMB 3 units (0-20); CYTOPLASMIC NEUTROP AB ANCA-C <1:20 titer (Neg:<1:20); PERINUCLEAR AB ANCA-P <1:20 titer (Neg:<1:20)
[2018-02-03] MEDS: IPRATROPIUM 0.5MG/ALBUTEROL 2.5MG INH SOL UD 3ML (DUONEB)(J7620) NEB ×4 (02:00→20:01)
[2018-02-03] MEDS: HYDROcodone/APAP LIQUID 7.5-325MG 15ML UDC (LORTAB ELIXIR) PO ×5 (02:16→21:11)
[2018-02-03 05:16] LABS: HEMATOCRIT 28.4 % (42.0-52.0); HEMOGLOBIN 8.9 g/dl (13.5-17.5); MEAN CORPUSCULAR HGB CONC 31.3 g/dl (32.0-36.5); MEAN CORPUSCULAR VOLUME 89.3 fl (80.0-96.0); PLATELET COUNT, AUTOMATED 254 10^3/uL (150-450); RED BLOOD COUNT 3.18 10^6/uL (4.30-6.10); RED CELL DISTRIBUTION WIDTH 15.3 % (11.5-14.5); WHITE BLOOD COUNT 15.6 10^3/uL (4.0-10.0)
[2018-02-03 05:34] LABS: ALBUMIN 2.6 GM/DL (3.2-5.2); ALBUMIN/GLOBULIN RATIO 0.76 (1.00-1.93); ALKALINE PHOSPHATASE 57 U/L (45-117); ALT/SGPT 27 U/L (12-78); ANION GAP 8 MEQ/L (8-16); AST/SGOT 15 U/L (7-37); BILIRUBIN,TOTAL 0.5 MG/DL (0.2-1.0); BLOOD UREA NITROGEN 63 MG/DL (7-18); CARBON DIOXIDE LEVEL 29 MEQ/L (21-32); CHLORIDE LEVEL 100 MEQ/L (98-107); GLOMERULAR FILTRATION RATE 28.5 (>42); GLUCOSE, FASTING 128 MG/DL (70-100); POTASSIUM SERUM 4.2 MEQ/L (3.5-5.1); SODIUM LEVEL 137 MEQ/L (136-145)
[2018-02-03] MEDS: SLF 3 ML SYR IV ×3 (06:00→21:12)
[2018-02-03 07:21] LABS: BEDSIDE GLUCOSE 129 MG/DL (83-110)
[2018-02-03] MEDS: HumaLOG INSULIN (NovoLOG) PER UNIT SC ×4 (08:05→21:00)
[2018-02-03] MEDS: predniSONE 20 MG TAB PO (08:56)
[2018-02-03] MEDS: CYCLOPHOSPHAMIDE 25 MG PO ×2 (08:56→21:10)
[2018-02-03] MEDS: GABAPENTIN 300 MG CAP PO ×2 (08:57→21:10)
[2018-02-03] MEDS: FLUoxetine 20 MG CAP PO (08:57)
[2018-02-03] MEDS: ASPIRIN 81 MG ENTERIC TAB PO (08:57)
[2018-02-03] MEDS: OMEPRAZOLE 20 MG CAP PO ×2 (08:57→21:10)
[2018-02-03] MEDS: ATORVASTATIN 20 MG TAB PO (08:57)
[2018-02-03] MEDS: TAMSULOSIN 0.4 MG CAP PO (08:57)
[2018-02-03] MEDS: FLUCONAZOLE 100 MG TAB PO (08:57)
[2018-02-03] MEDS: MULTIVITAMINS/MINERALS THERAP 1 TAB PO ×2 (08:57→21:10)
[2018-02-03] MEDS: CYANOCOBALAMIN 500 MCG TAB PO ×3 (08:58→17:24)
[2018-02-03] MEDS: SENOKOT S TAB PO ×2 (09:00→20:39)
[2018-02-03 11:30] LABS: BEDSIDE GLUCOSE 176 MG/DL (83-110)
[2018-02-03] MEDS: HEPARIN SOD (PORCINE) 5000 UNITS/ML VIAL SQ ×2 (14:06→21:11)
[2018-02-03] MEDS: **VANCO AFTER HD** MISC XX (16:00)
[2018-02-03 17:18] LABS: BEDSIDE GLUCOSE 197 MG/DL (83-110)
[2018-02-03 19:55] LABS: TOTAL PROTEIN,RANDOM URINE 142.7 MG/DL (0.0-12.0)
[2018-02-03] MEDS: zolPIDEM TARTRATE 5 MG TAB PO (21:14)
[2018-02-03 21:24] LABS: BEDSIDE GLUCOSE 214 MG/DL (83-110)
[2018-02-04] MEDS: HYDROcodone/APAP LIQUID 7.5-325MG 15ML UDC (LORTAB ELIXIR) PO ×5 (00:59→20:33)
[2018-02-04] MEDS: IPRATROPIUM 0.5MG/ALBUTEROL 2.5MG INH SOL UD 3ML (DUONEB)(J7620) NEB ×4 (01:48→20:19)
[2018-02-04] MEDS: SLF 3 ML SYR IV ×3 (05:06→20:37)
[2018-02-04 05:34] LABS: HEMATOCRIT 29.7 % (42.0-52.0); HEMOGLOBIN 9.4 g/dl (13.5-17.5); MEAN CORPUSCULAR HEMOGLOBIN 28.5 pg (27.0-33.0); MEAN CORPUSCULAR HGB CONC 31.6 g/dl (32.0-36.5); PLATELET COUNT, AUTOMATED 273 10^3/uL (150-450); RED CELL DISTRIBUTION WIDTH 15.2 % (11.5-14.5); WHITE BLOOD COUNT 16.9 10^3/uL (4.0-10.0)
[2018-02-04 05:51] LABS: ALBUMIN 2.7 GM/DL (3.2-5.2); ALBUMIN/GLOBULIN RATIO 0.79 (1.00-1.93); ALKALINE PHOSPHATASE 57 U/L (45-117); ALT/SGPT 28 U/L (12-78); ANION GAP 7 MEQ/L (8-16); AST/SGOT 15 U/L (7-37); BILIRUBIN,TOTAL 0.5 MG/DL (0.2-1.0); BLOOD UREA NITROGEN 73 MG/DL (7-18); CALCIUM LEVEL 8.3 MG/DL (8.8-10.2); CARBON DIOXIDE LEVEL 28 MEQ/L (21-32); CHLORIDE LEVEL 100 MEQ/L (98-107); CREATININE FOR GFR 1.77 MG/DL (0.70-1.30); GLOMERULAR FILTRATION RATE 40.5 (>42); GLUCOSE, FASTING 110 MG/DL (70-100); POTASSIUM SERUM 4.2 MEQ/L (3.5-5.1); SODIUM LEVEL 135 MEQ/L (136-145); TOTAL PROTEIN 6.1 GM/DL (6.4-8.2); VANCOMYCIN RANDOM 11.9 UG/ML
[2018-02-04 07:15] LABS: BEDSIDE GLUCOSE 109 MG/DL (83-110)
[2018-02-04] MEDS: HumaLOG INSULIN (NovoLOG) PER UNIT SC ×4 (07:45→21:00)
[2018-02-04] MEDS: VANCOMYCIN HCL 500 MG in D5W MINI-BAG PLUS 100 ML IV (07:45)
[2018-02-04] MEDS: CYANOCOBALAMIN 500 MCG TAB PO ×3 (07:46→18:43)
[2018-02-04] MEDS: SENOKOT S TAB PO ×2 (09:00→20:36)
[2018-02-04] MEDS: ONDANSETRON 4MG/2ML VIAL (J2405) IV ×2 (09:15→22:32)
[2018-02-04] MEDS: HEPARIN SOD (PORCINE) 5000 UNITS/ML VIAL SQ ×2 (09:31→21:00)
[2018-02-04] MEDS: FLUoxetine 20 MG CAP PO (09:31)
[2018-02-04] MEDS: CYCLOPHOSPHAMIDE 25 MG PO ×2 (09:32→20:36)
[2018-02-04] MEDS: ATORVASTATIN 20 MG TAB PO (09:32)
[2018-02-04] MEDS: GABAPENTIN 300 MG CAP PO ×2 (09:32→20:35)
[2018-02-04] MEDS: MULTIVITAMINS/MINERALS THERAP 1 TAB PO ×2 (09:32→20:35)
[2018-02-04] MEDS: ASPIRIN 81 MG ENTERIC TAB PO (09:32)
[2018-02-04] MEDS: predniSONE 20 MG TAB PO (09:32)
[2018-02-04] MEDS: OMEPRAZOLE 20 MG CAP PO ×2 (09:32→20:35)
[2018-02-04] MEDS: TAMSULOSIN 0.4 MG CAP PO (09:33)
[2018-02-04] MEDS: FLUCONAZOLE 100 MG TAB PO (09:33)
[2018-02-04] MEDS: HEPARIN 1,000 UNITS/ML 10ML VIAL (FOR RADIOLOGY& DIALYSIS ONLY) IV (11:30)
[2018-02-04] MEDS: HEPARIN 1,000 UNITS/ML 10ML VIAL (FOR RADIOLOGY& DIALYSIS ONLY) XX (11:30)
[2018-02-04 11:45] LABS: BEDSIDE GLUCOSE 143 MG/DL (83-110)
[2018-02-04] MEDS: **VANCO AFTER HD** MISC XX (16:00)
[2018-02-04 18:42] LABS: BEDSIDE GLUCOSE 161 MG/DL (83-110)
[2018-02-04] MEDS: VANCOMYCIN HCL 1,000 MG, VIAL MATE ADAPTER 1 EACH in D5W 250 ML IV (20:35)
[2018-02-04] MEDS: zolPIDEM TARTRATE 5 MG TAB PO (20:35)
[2018-02-04 21:48] LABS: BEDSIDE GLUCOSE 246 MG/DL (83-110)
[2018-02-05] MEDS: HYDROcodone/APAP LIQUID 7.5-325MG 15ML UDC (LORTAB ELIXIR) PO ×5 (00:31→21:00)
[2018-02-05] MEDS: IPRATROPIUM 0.5MG/ALBUTEROL 2.5MG INH SOL UD 3ML (DUONEB)(J7620) NEB ×4 (02:00→19:33)
[2018-02-05] MEDS: SLF 3 ML SYR IV ×3 (04:56→21:06)
[2018-02-05 05:03] LABS: HEMATOCRIT 28.1 % (42.0-52.0); HEMOGLOBIN 8.7 g/dl (13.5-17.5); MEAN CORPUSCULAR HEMOGLOBIN 28.3 pg (27.0-33.0); MEAN CORPUSCULAR VOLUME 91.5 fl (80.0-96.0); PLATELET COUNT, AUTOMATED 238 10^3/uL (150-450); RED BLOOD COUNT 3.07 10^6/uL (4.30-6.10); RED CELL DISTRIBUTION WIDTH 15.3 % (11.5-14.5); WHITE BLOOD COUNT 13.9 10^3/uL (4.0-10.0)
[2018-02-05 05:30] LABS: ALBUMIN 2.4 GM/DL (3.2-5.2); ALBUMIN/GLOBULIN RATIO 0.75 (1.00-1.93); ALKALINE PHOSPHATASE 56 U/L (45-117); ALT/SGPT 26 U/L (12-78); ANION GAP 5 MEQ/L (8-16); AST/SGOT 15 U/L (7-37); BILIRUBIN,TOTAL 0.4 MG/DL (0.2-1.0); BLOOD UREA NITROGEN 48 MG/DL (7-18); CALCIUM LEVEL 8.1 MG/DL (8.8-10.2); CARBON DIOXIDE LEVEL 32 MEQ/L (21-32); CHLORIDE LEVEL 102 MEQ/L (98-107); CREATININE FOR GFR 1.43 MG/DL (0.70-1.30); GLOMERULAR FILTRATION RATE 51.8 (>42); GLUCOSE, FASTING 117 MG/DL (70-100); POTASSIUM SERUM 4.7 MEQ/L (3.5-5.1); SODIUM LEVEL 139 MEQ/L (136-145); TOTAL PROTEIN 5.6 GM/DL (6.4-8.2)
[2018-02-05 08:11] LABS: MAGNESIUM LEVEL 2.5 MG/DL (1.8-2.4); PHOSPHORUS LEVEL 3.1 MG/DL (2.5-4.9); VANCOMYCIN RANDOM 18.4 UG/ML
[2018-02-05] MEDS: MULTIVITAMINS/MINERALS THERAP 1 TAB PO ×2 (08:33→21:06)
[2018-02-05] MEDS: GABAPENTIN 300 MG CAP PO ×2 (08:33→21:06)
[2018-02-05] MEDS: OMEPRAZOLE 20 MG CAP PO ×2 (08:33→21:05)
[2018-02-05] MEDS: FLUCONAZOLE 100 MG TAB PO (08:33)
[2018-02-05] MEDS: SENOKOT S TAB PO ×2 (08:33→21:00)
[2018-02-05] MEDS: predniSONE 20 MG TAB PO (08:33)
[2018-02-05] MEDS: FLUoxetine 20 MG CAP PO (08:33)
[2018-02-05] MEDS: ATORVASTATIN 20 MG TAB PO (08:34)
[2018-02-05] MEDS: HumaLOG INSULIN (NovoLOG) PER UNIT SC ×4 (08:34→21:05)
[2018-02-05] MEDS: ASPIRIN 81 MG ENTERIC TAB PO (08:34)
[2018-02-05] MEDS: CYANOCOBALAMIN 500 MCG TAB PO ×3 (08:34→17:37)
[2018-02-05] MEDS: TAMSULOSIN 0.4 MG CAP PO (08:34)
[2018-02-05] MEDS: CYCLOPHOSPHAMIDE 25 MG PO ×2 (08:35→21:05)
[2018-02-05] MEDS: HEPARIN SOD (PORCINE) 5000 UNITS/ML VIAL SQ (08:35)
[2018-02-05 11:24] LABS: BEDSIDE GLUCOSE 142 MG/DL (83-110)
[2018-02-05] MEDS: FUROSEMIDE 100 MG/10 ML VIAL (J1940) IV (11:29)
[2018-02-05] MEDS: **VANCO AFTER HD** MISC XX (16:00)
[2018-02-05 16:23] LABS: INR 1.31; PROTHROMBIN TIME 16.5 SECONDS (12.1-14.4)
[2018-02-05] MEDS: WARFARIN SOD 4 MG TAB PO (16:51)
[2018-02-05 17:35] LABS: BEDSIDE GLUCOSE 275 MG/DL (83-110)
[2018-02-05] MEDS: ENOXAPARIN 120 MG/0.8 ML SYR (J1650) SC (17:38)
[2018-02-05 21:02] LABS: BEDSIDE GLUCOSE 258 MG/DL (83-110)
[2018-02-05] MEDS: zolPIDEM TARTRATE 5 MG TAB PO (21:15)
[2018-02-06] MEDS: IPRATROPIUM 0.5MG/ALBUTEROL 2.5MG INH SOL UD 3ML (DUONEB)(J7620) NEB ×4 (02:00→20:03)
[2018-02-06] MEDS: HYDROcodone/APAP LIQUID 7.5-325MG 15ML UDC (LORTAB ELIXIR) PO ×5 (02:02→21:06)
[2018-02-06 04:43] LABS: HEMATOCRIT 26.8 % (42.0-52.0); HEMOGLOBIN 8.3 g/dl (13.5-17.5); MEAN CORPUSCULAR HEMOGLOBIN 28.2 pg (27.0-33.0); MEAN CORPUSCULAR VOLUME 91.2 fl (80.0-96.0); PLATELET COUNT, AUTOMATED 239 10^3/uL (150-450); RED BLOOD COUNT 2.94 10^6/uL (4.30-6.10); RED CELL DISTRIBUTION WIDTH 15.5 % (11.5-14.5); WHITE BLOOD COUNT 15.4 10^3/uL (4.0-10.0)
[2018-02-06 05:01] LABS: PROTHROMBIN TIME 18.4 SECONDS (12.1-14.4)
[2018-02-06 05:18] LABS: ALBUMIN 2.4 GM/DL (3.2-5.2); ALKALINE PHOSPHATASE 53 U/L (45-117); ALT/SGPT 27 U/L (12-78); ANION GAP 7 MEQ/L (8-16); AST/SGOT 11 U/L (7-37); BILIRUBIN,TOTAL 0.4 MG/DL (0.2-1.0); BLOOD UREA NITROGEN 70 MG/DL (7-18); CALCIUM LEVEL 7.8 MG/DL (8.8-10.2); CARBON DIOXIDE LEVEL 30 MEQ/L (21-32); CHLORIDE LEVEL 101 MEQ/L (98-107); CREATININE FOR GFR 1.75 MG/DL (0.70-1.30); GLUCOSE, FASTING 119 MG/DL (70-100); MAGNESIUM LEVEL 2.5 MG/DL (1.8-2.4); PHOSPHORUS LEVEL 3.8 MG/DL (2.5-4.9); POTASSIUM SERUM 4.3 MEQ/L (3.5-5.1); SODIUM LEVEL 138 MEQ/L (136-145); TOTAL PROTEIN 5.4 GM/DL (6.4-8.2)
[2018-02-06] MEDS: SLF 3 ML SYR IV ×3 (05:23→21:06)
[2018-02-06] MEDS: HumaLOG INSULIN (NovoLOG) PER UNIT SC ×4 (07:45→21:00)
[2018-02-06] MEDS: GABAPENTIN 300 MG CAP PO ×2 (09:36→21:05)
[2018-02-06] MEDS: CYANOCOBALAMIN 500 MCG TAB PO ×3 (09:37→17:18)
[2018-02-06] MEDS: ASPIRIN 81 MG ENTERIC TAB PO (09:37)
[2018-02-06] MEDS: predniSONE 20 MG TAB PO (09:37)
[2018-02-06] MEDS: OMEPRAZOLE 20 MG CAP PO ×2 (09:37→21:04)
[2018-02-06] MEDS: ATORVASTATIN 20 MG TAB PO (09:37)
[2018-02-06] MEDS: FLUoxetine 20 MG CAP PO (09:38)
[2018-02-06] MEDS: CYCLOPHOSPHAMIDE 25 MG PO ×2 (09:56→21:05)
[2018-02-06] MEDS: TAMSULOSIN 0.4 MG CAP PO (09:57)
[2018-02-06] MEDS: SENOKOT S TAB PO ×2 (09:57→21:05)
[2018-02-06] MEDS: MULTIVITAMINS/MINERALS THERAP 1 TAB PO ×2 (09:57→21:04)
[2018-02-06] MEDS: FLUCONAZOLE 100 MG TAB PO (09:57)
[2018-02-06] MEDS: FUROSEMIDE 100 MG/10 ML VIAL (J1940) IV (09:58)
[2018-02-06 12:08] LABS: BEDSIDE GLUCOSE 170 MG/DL (83-110)
[2018-02-06] MEDS: ENOXAPARIN 120 MG/0.8 ML SYR (J1650) SC (12:21)
[2018-02-06] MEDS ORDERED: DARBEPOETIN 100 MCG/0.5 ML *DIALYSIS* SYRINGE (J0882) IV (14:00)
[2018-02-06] MEDS: WARFARIN SOD 4 MG TAB PO (16:34)
[2018-02-06 16:45] LABS: BEDSIDE GLUCOSE 208 MG/DL (83-110)
[2018-02-06] MEDS: HEPARIN 1,000 UNITS/ML 10ML VIAL (FOR RADIOLOGY& DIALYSIS ONLY) XX (18:43)
[2018-02-06 20:52] LABS: BEDSIDE GLUCOSE 173 MG/DL (83-110)
[2018-02-06] MEDS: zolPIDEM TARTRATE 5 MG TAB PO (22:14)
[2018-02-07] MEDS: IPRATROPIUM 0.5MG/ALBUTEROL 2.5MG INH SOL UD 3ML (DUONEB)(J7620) NEB ×4 (01:13→19:50)
[2018-02-07] MEDS: HYDROcodone/APAP LIQUID 7.5-325MG 15ML UDC (LORTAB ELIXIR) PO ×5 (04:31→23:56)
[2018-02-07 04:48] LABS: HEMATOCRIT 28.2 % (42.0-52.0); HEMOGLOBIN 8.8 g/dl (13.5-17.5); MEAN CORPUSCULAR HEMOGLOBIN 28.7 pg (27.0-33.0); MEAN CORPUSCULAR HGB CONC 31.2 g/dl (32.0-36.5); MEAN CORPUSCULAR VOLUME 91.9 fl (80.0-96.0); PLATELET COUNT, AUTOMATED 244 10^3/uL (150-450); RED BLOOD COUNT 3.07 10^6/uL (4.30-6.10); RED CELL DISTRIBUTION WIDTH 15.7 % (11.5-14.5); WHITE BLOOD COUNT 14.6 10^3/uL (4.0-10.0)
[2018-02-07] MEDS: SLF 3 ML SYR IV ×3 (05:05→20:29)
[2018-02-07 05:12] LABS: INR 1.61; PROTHROMBIN TIME 19.4 SECONDS (12.1-14.4)
[2018-02-07 05:17] LABS: ALBUMIN 2.5 GM/DL (3.2-5.2); ALBUMIN/GLOBULIN RATIO 0.81 (1.00-1.93); ALKALINE PHOSPHATASE 52 U/L (45-117); ALT/SGPT 27 U/L (12-78); ANION GAP 6 MEQ/L (8-16); AST/SGOT 15 U/L (7-37); BILIRUBIN,TOTAL 0.4 MG/DL (0.2-1.0); BLOOD UREA NITROGEN 43 MG/DL (7-18); CALCIUM LEVEL 8.1 MG/DL (8.8-10.2); CARBON DIOXIDE LEVEL 31 MEQ/L (21-32); CHLORIDE LEVEL 103 MEQ/L (98-107); CREATININE FOR GFR 1.25 MG/DL (0.70-1.30); GLOMERULAR FILTRATION RATE > 60.0 (>42); GLUCOSE, FASTING 105 MG/DL (70-100); MAGNESIUM LEVEL 2.4 MG/DL (1.8-2.4); PHOSPHORUS LEVEL 2.8 MG/DL (2.5-4.9); POTASSIUM SERUM 4.1 MEQ/L (3.5-5.1); SODIUM LEVEL 140 MEQ/L (136-145); TOTAL PROTEIN 5.6 GM/DL (6.4-8.2)
[2018-02-07] MEDS: TAMSULOSIN 0.4 MG CAP PO (08:03)
[2018-02-07] MEDS: HumaLOG INSULIN (NovoLOG) PER UNIT SC ×4 (08:03→20:28)
[2018-02-07] MEDS: MULTIVITAMINS/MINERALS THERAP 1 TAB PO ×2 (08:04→20:28)
[2018-02-07] MEDS: ASPIRIN 81 MG ENTERIC TAB PO (08:04)
[2018-02-07] MEDS: FLUoxetine 20 MG CAP PO (08:04)
[2018-02-07] MEDS: SENOKOT S TAB PO ×2 (08:04→20:28)
[2018-02-07] MEDS: OMEPRAZOLE 20 MG CAP PO ×2 (08:04→20:28)
[2018-02-07] MEDS: ATORVASTATIN 20 MG TAB PO (08:04)
[2018-02-07] MEDS: CYANOCOBALAMIN 500 MCG TAB PO ×3 (08:04→17:24)
[2018-02-07] MEDS: FLUCONAZOLE 100 MG TAB PO (08:04)
[2018-02-07] MEDS: FUROSEMIDE 100 MG/10 ML VIAL (J1940) IV (08:06)
[2018-02-07] MEDS: GABAPENTIN 300 MG CAP PO ×2 (08:07→20:28)
[2018-02-07] MEDS: predniSONE 20 MG TAB PO (08:07)
[2018-02-07] MEDS: CYCLOPHOSPHAMIDE 25 MG PO ×2 (08:07→20:28)
[2018-02-07] MEDS ORDERED: HEPARIN SOD (PORCINE) 5000 UNITS/ML VIAL IV (10:45)
[2018-02-07 11:38] LABS: PARTIAL THROMBOPLASTIN TIME 32.7 SECONDS (25.4-37.6)
[2018-02-07 12:16] LABS: BEDSIDE GLUCOSE 182 MG/DL (83-110)
[2018-02-07] MEDS: HEPARIN DRIP 25,000 UNITS in APPROPRIATE DILUENT 1 EA IV (12:57)
[2018-02-07] MEDS: WARFARIN SOD 4 MG TAB PO (16:14)
[2018-02-07 17:05] LABS: PARTIAL THROMBOPLASTIN TIME 57.9 SECONDS (25.4-37.6)
[2018-02-07 17:21] LABS: BEDSIDE GLUCOSE 189 MG/DL (83-110)
[2018-02-07 19:20] LABS: PARTIAL THROMBOPLASTIN TIME 65.6 SECONDS (25.4-37.6)
[2018-02-07 20:27] LABS: BEDSIDE GLUCOSE 204 MG/DL (83-110)
[2018-02-08 00:41] LABS: PARTIAL THROMBOPLASTIN TIME 76.7 SECONDS (25.4-37.6)
[2018-02-08] MEDS: IPRATROPIUM 0.5MG/ALBUTEROL 2.5MG INH SOL UD 3ML (DUONEB)(J7620) NEB ×4 (00:59→20:29)
[2018-02-08] MEDS: zolPIDEM TARTRATE 5 MG TAB PO (01:01)
[2018-02-08] MEDS: HEPARIN DRIP 25,000 UNITS in APPROPRIATE DILUENT 1 EA IV ×2 (02:48→18:35)
[2018-02-08] MEDS: SLF 3 ML SYR IV ×3 (05:02→20:13)
[2018-02-08] MEDS: HYDROcodone/APAP LIQUID 7.5-325MG 15ML UDC (LORTAB ELIXIR) PO ×4 (05:03→20:11)
[2018-02-08 06:25] LABS: HEMATOCRIT 27.2 % (42.0-52.0); HEMOGLOBIN 8.8 g/dl (13.5-17.5); MEAN CORPUSCULAR HGB CONC 32.4 g/dl (32.0-36.5); MEAN CORPUSCULAR VOLUME 89.8 fl (80.0-96.0); PLATELET COUNT, AUTOMATED 258 10^3/uL (150-450); RED BLOOD COUNT 3.03 10^6/uL (4.30-6.10); WHITE BLOOD COUNT 17.2 10^3/uL (4.0-10.0)
[2018-02-08 06:38] LABS: ALBUMIN 2.4 GM/DL (3.2-5.2); ALBUMIN/GLOBULIN RATIO 0.86 (1.00-1.93); ALKALINE PHOSPHATASE 54 U/L (45-117); ALT/SGPT 28 U/L (12-78); ANION GAP 6 MEQ/L (8-16); AST/SGOT 15 U/L (7-37); BILIRUBIN,TOTAL 0.4 MG/DL (0.2-1.0); BLOOD UREA NITROGEN 60 MG/DL (7-18); CALCIUM LEVEL 7.8 MG/DL (8.8-10.2); CARBON DIOXIDE LEVEL 31 MEQ/L (21-32); CHLORIDE LEVEL 100 MEQ/L (98-107); CREATININE FOR GFR 1.29 MG/DL (0.70-1.30); GLOMERULAR FILTRATION RATE 58.3 (>42); GLUCOSE, FASTING 112 MG/DL (70-100); MAGNESIUM LEVEL 2.4 MG/DL (1.8-2.4); POTASSIUM SERUM 4.1 MEQ/L (3.5-5.1); SODIUM LEVEL 137 MEQ/L (136-145); TOTAL PROTEIN 5.2 GM/DL (6.4-8.2)
[2018-02-08 06:50] LABS: INR 1.67; PROTHROMBIN TIME 19.9 SECONDS (12.1-14.4)
[2018-02-08 06:51] LABS: PARTIAL THROMBOPLASTIN TIME 68.7 SECONDS (25.4-37.6)
[2018-02-08 07:56] LABS: BEDSIDE GLUCOSE 105 MG/DL (83-110)
[2018-02-08] MEDS: CYANOCOBALAMIN 500 MCG TAB PO ×3 (08:01→18:08)
[2018-02-08] MEDS: HumaLOG INSULIN (NovoLOG) PER UNIT SC ×4 (08:02→21:00)
[2018-02-08] MEDS: ONDANSETRON 4MG/2ML VIAL (J2405) IV ×2 (09:02→19:11)
[2018-02-08] MEDS: CYCLOPHOSPHAMIDE 25 MG PO ×2 (09:02→20:12)
[2018-02-08] MEDS: FUROSEMIDE 100 MG/10 ML VIAL (J1940) IV (09:02)
[2018-02-08] MEDS: GABAPENTIN 300 MG CAP PO ×2 (09:03→20:10)
[2018-02-08] MEDS: FLUoxetine 20 MG CAP PO (09:04)
[2018-02-08] MEDS: predniSONE 20 MG TAB PO (09:04)
[2018-02-08] MEDS: SENOKOT S TAB PO (09:04)
[2018-02-08] MEDS: ATORVASTATIN 20 MG TAB PO (09:04)
[2018-02-08] MEDS: OMEPRAZOLE 20 MG CAP PO ×2 (09:04→20:10)
[2018-02-08] MEDS: BACTRIM 160MG/800MG DS TAB PO (09:04)
[2018-02-08] MEDS: TAMSULOSIN 0.4 MG CAP PO (09:04)
[2018-02-08] MEDS: ASPIRIN 81 MG ENTERIC TAB PO (09:05)
[2018-02-08] MEDS: MULTIVITAMINS/MINERALS THERAP 1 TAB PO ×2 (09:05→20:12)
[2018-02-08] MEDS: HEPARIN 1,000 UNITS/ML 10ML VIAL (FOR RADIOLOGY& DIALYSIS ONLY) XX (10:30)
[2018-02-08 12:21] LABS: BEDSIDE GLUCOSE 134 MG/DL (83-110)
[2018-02-08] MEDS: IRON SUCROSE 100MG 5ML VIAL (J1756 PER 1MG) IV (16:00)
[2018-02-08] MEDS: WARFARIN SOD 4 MG TAB PO (16:20)
[2018-02-08 17:00] LABS: BEDSIDE GLUCOSE 162 MG/DL (83-110)
[2018-02-08] MEDS: BISACODYL 10 MG SUPP PR ×2 (17:12→20:12)
[2018-02-08] MEDS: RAMELTEON 8 MG TAB (ROZEREM) PO (20:11)
[2018-02-08 21:26] LABS: BEDSIDE GLUCOSE 208 MG/DL (83-110)
[2018-02-09] MEDS: SENOKOT S TAB PO ×3 (00:24→20:41)
[2018-02-09] MEDS: HYDROcodone/APAP LIQUID 7.5-325MG 15ML UDC (LORTAB ELIXIR) PO ×5 (00:25→20:15)
[2018-02-09] MEDS: IPRATROPIUM 0.5MG/ALBUTEROL 2.5MG INH SOL UD 3ML (DUONEB)(J7620) NEB ×4 (02:00→20:19)
[2018-02-09 04:50] LABS: HEMATOCRIT 28.8 % (42.0-52.0); HEMOGLOBIN 9.1 g/dl (13.5-17.5); MEAN CORPUSCULAR HEMOGLOBIN 29.3 pg (27.0-33.0); MEAN CORPUSCULAR HGB CONC 31.6 g/dl (32.0-36.5); MEAN CORPUSCULAR VOLUME 92.6 fl (80.0-96.0); PLATELET COUNT, AUTOMATED 291 10^3/uL (150-450); RED BLOOD COUNT 3.11 10^6/uL (4.30-6.10); RED CELL DISTRIBUTION WIDTH 16.3 % (11.5-14.5); WHITE BLOOD COUNT 15.4 10^3/uL (4.0-10.0)
[2018-02-09] MEDS: SLF 3 ML SYR IV ×3 (05:06→20:42)
[2018-02-09 05:08] LABS: INR 2.01; PROTHROMBIN TIME 23.2 SECONDS (12.1-14.4)
[2018-02-09 05:10] LABS: PARTIAL THROMBOPLASTIN TIME 78.5 SECONDS (25.4-37.6)
[2018-02-09 05:12] LABS: PHOSPHORUS LEVEL 2.9 MG/DL (2.5-4.9)
[2018-02-09 05:12] LABS: MAGNESIUM LEVEL 2.4 MG/DL (1.8-2.4)
[2018-02-09 05:24] LABS: ALBUMIN 2.6 GM/DL (3.2-5.2); ALBUMIN/GLOBULIN RATIO 0.96 (1.00-1.93); ALKALINE PHOSPHATASE 62 U/L (45-117); ALT/SGPT 29 U/L (12-78); ANION GAP 7 MEQ/L (8-16); AST/SGOT 16 U/L (7-37); BILIRUBIN,TOTAL 0.6 MG/DL (0.2-1.0); BLOOD UREA NITROGEN 38 MG/DL (7-18); CALCIUM LEVEL 7.9 MG/DL (8.8-10.2); CARBON DIOXIDE LEVEL 31 MEQ/L (21-32); CHLORIDE LEVEL 102 MEQ/L (98-107); CREATININE FOR GFR 1.63 MG/DL (0.70-1.30); GLOMERULAR FILTRATION RATE 44.5 (>42); GLUCOSE, FASTING 105 MG/DL (70-100); POTASSIUM SERUM 4.5 MEQ/L (3.5-5.1); SODIUM LEVEL 140 MEQ/L (136-145); TOTAL PROTEIN 5.3 GM/DL (6.4-8.2)
[2018-02-09 07:26] LABS: BEDSIDE GLUCOSE 147 MG/DL (83-110)
[2018-02-09] MEDS: CYANOCOBALAMIN 500 MCG TAB PO ×3 (07:28→17:20)
[2018-02-09] MEDS: HumaLOG INSULIN (NovoLOG) PER UNIT SC ×4 (07:28→20:12)
[2018-02-09] MEDS: predniSONE 20 MG TAB PO (08:47)
[2018-02-09] MEDS: CYCLOPHOSPHAMIDE 25 MG PO ×2 (08:47→20:42)
[2018-02-09] MEDS: OMEPRAZOLE 20 MG CAP PO ×2 (08:48→20:41)
[2018-02-09] MEDS: ATORVASTATIN 20 MG TAB PO (08:48)
[2018-02-09] MEDS: MULTIVITAMINS/MINERALS THERAP 1 TAB PO ×2 (08:48→20:41)
[2018-02-09] MEDS: TAMSULOSIN 0.4 MG CAP PO (08:48)
[2018-02-09] MEDS: GABAPENTIN 300 MG CAP PO ×2 (08:48→20:41)
[2018-02-09] MEDS: FLUoxetine 20 MG CAP PO (08:48)
[2018-02-09] MEDS: ASPIRIN 81 MG ENTERIC TAB PO (08:48)
[2018-02-09] MEDS: FUROSEMIDE 100 MG/10 ML VIAL (J1940) IV (08:49)
[2018-02-09] MEDS: ONDANSETRON 4MG/2ML VIAL (J2405) IV (09:51)
[2018-02-09] MEDS: MIRALAX *UNIT DOSE* 17GM PACKET PO (10:03)
[2018-02-09] MEDS: SIMETHICONE 80 MG CHEW TAB PO (10:03)
[2018-02-09] MEDS: HEPARIN 1,000 UNITS/ML 10ML VIAL (FOR RADIOLOGY& DIALYSIS ONLY) XX (10:30)
[2018-02-09 11:19] LABS: BEDSIDE GLUCOSE 162 MG/DL (83-110)
[2018-02-09] MEDS: IRON SUCROSE 100MG 5ML VIAL (J1756 PER 1MG) IV (15:35)
[2018-02-09 17:16] LABS: BEDSIDE GLUCOSE 278 MG/DL (83-110)
[2018-02-09] MEDS: WARFARIN SOD 4 MG TAB PO (17:20)
[2018-02-09 20:06] LABS: BEDSIDE GLUCOSE 113 MG/DL (83-110)
[2018-02-09] MEDS: RAMELTEON 8 MG TAB (ROZEREM) PO (20:41)
[2018-02-10] MEDS: IPRATROPIUM 0.5MG/ALBUTEROL 2.5MG INH SOL UD 3ML (DUONEB)(J7620) NEB ×4 (02:00→20:53)
[2018-02-10] MEDS: HYDROcodone/APAP LIQUID 7.5-325MG 15ML UDC (LORTAB ELIXIR) PO ×4 (02:59→21:04)
[2018-02-10] MEDS: SLF 3 ML SYR IV ×3 (05:01→21:01)
[2018-02-10 06:13] LABS: INR 2.37; PARTIAL THROMBOPLASTIN TIME 34.9 SECONDS (25.4-37.6); PROTHROMBIN TIME 26.4 SECONDS (12.1-14.4)
[2018-02-10 06:16] LABS: MAGNESIUM LEVEL 2.6 MG/DL (1.8-2.4); PHOSPHORUS LEVEL 3.7 MG/DL (2.5-4.9)
[2018-02-10 06:34] LABS: BEDSIDE GLUCOSE 115 MG/DL (83-110)
[2018-02-10] MEDS: TAMSULOSIN 0.4 MG CAP PO (08:39)
[2018-02-10] MEDS: ATORVASTATIN 20 MG TAB PO (08:39)
[2018-02-10] MEDS: MULTIVITAMINS/MINERALS THERAP 1 TAB PO ×2 (08:39→21:00)
[2018-02-10] MEDS: predniSONE 20 MG TAB PO (08:39)
[2018-02-10] MEDS: HumaLOG INSULIN (NovoLOG) PER UNIT SC ×4 (08:39→21:00)
[2018-02-10] MEDS: FLUoxetine 20 MG CAP PO (08:40)
[2018-02-10] MEDS: OMEPRAZOLE 20 MG CAP PO ×2 (08:40→21:00)
[2018-02-10] MEDS: CYANOCOBALAMIN 500 MCG TAB PO ×3 (08:40→17:46)
[2018-02-10] MEDS: ASPIRIN 81 MG ENTERIC TAB PO (08:40)
[2018-02-10] MEDS: GABAPENTIN 300 MG CAP PO ×2 (08:40→21:00)
[2018-02-10] MEDS: BACTRIM 160MG/800MG DS TAB PO (08:41)
[2018-02-10] MEDS: SENOKOT S TAB PO ×2 (08:41→21:00)
[2018-02-10] MEDS: FUROSEMIDE 100 MG/10 ML VIAL (J1940) IV (08:42)
[2018-02-10] MEDS: CYCLOPHOSPHAMIDE 25 MG PO ×2 (08:43→20:59)
[2018-02-10 08:52] LABS: BASO % 0.1 % (0.0-1.0); EOS % 0.1 % (0.0-3.0); HEMATOCRIT 27.2 % (42.0-52.0); HEMOGLOBIN 8.4 g/dl (13.5-17.5); IMMATURE GRANULOCYTE % 1.8 % (0-3.0); LYMPH # 0.6 10^3/uL (1.5-4.5); LYMPH % 4.1 % (24.0-44.0); MEAN CORPUSCULAR HEMOGLOBIN 29.2 pg (27.0-33.0); MEAN CORPUSCULAR HGB CONC 30.9 g/dl (32.0-36.5); MEAN CORPUSCULAR VOLUME 94.4 fl (80.0-96.0); NEUTROPHILS # 11.8 10^3/uL (1.8-7.7); NEUTROPHILS % 86.9 % (36.0-66.0); PLATELET COUNT, AUTOMATED 282 10^3/uL (150-450); RED BLOOD COUNT 2.88 10^6/uL (4.30-6.10); RED CELL DISTRIBUTION WIDTH 16.7 % (11.5-14.5); WHITE BLOOD COUNT 13.6 10^3/uL (4.0-10.0)
[2018-02-10 09:16] LABS: ALBUMIN 2.3 GM/DL (3.2-5.2); ALBUMIN/GLOBULIN RATIO 0.82 (1.00-1.93); ALKALINE PHOSPHATASE 52 U/L (45-117); ALT/SGPT 25 U/L (12-78); ANION GAP 9 MEQ/L (8-16); AST/SGOT 13 U/L (7-37); BILIRUBIN,TOTAL 0.4 MG/DL (0.2-1.0); BLOOD UREA NITROGEN 58 MG/DL (7-18); CALCIUM LEVEL 7.6 MG/DL (8.8-10.2); CARBON DIOXIDE LEVEL 28 MEQ/L (21-32); CHLORIDE LEVEL 103 MEQ/L (98-107); CREATININE FOR GFR 1.99 MG/DL (0.70-1.30); GLOMERULAR FILTRATION RATE 35.3 (>42); GLUCOSE, FASTING 108 MG/DL (70-100); POTASSIUM SERUM 4.2 MEQ/L (3.5-5.1); SODIUM LEVEL 140 MEQ/L (136-145); TOTAL PROTEIN 5.1 GM/DL (6.4-8.2)
[2018-02-10] MEDS: HEPARIN 1,000 UNITS/ML 10ML VIAL (FOR RADIOLOGY& DIALYSIS ONLY) XX (10:45)
[2018-02-10] MEDS ORDERED: HYDROcodone/APAP LIQUID 7.5-325MG 15ML UDC (LORTAB ELIXIR) As Ordered (15:55)
[2018-02-10 16:43] LABS: BEDSIDE GLUCOSE 248 MG/DL (83-110)
[2018-02-10] MEDS: ONDANSETRON 4MG/2ML VIAL (J2405) IV (16:49)
[2018-02-10] MEDS: WARFARIN SOD 4 MG TAB PO (17:46)
[2018-02-10 20:42] LABS: BEDSIDE GLUCOSE 148 MG/DL (83-110)
[2018-02-10] MEDS: RAMELTEON 8 MG TAB (ROZEREM) PO (20:59)
[2018-02-11] MEDS: IPRATROPIUM 0.5MG/ALBUTEROL 2.5MG INH SOL UD 3ML (DUONEB)(J7620) NEB ×4 (01:51→20:44)
[2018-02-11] MEDS: HYDROcodone/APAP LIQUID 7.5-325MG 15ML UDC (LORTAB ELIXIR) PO ×4 (02:41→18:32)
[2018-02-11 05:54] LABS: BASO % 0.2 % (0.0-1.0); EOS % 0.1 % (0.0-3.0); HEMATOCRIT 28.8 % (42.0-52.0); HEMOGLOBIN 8.9 g/dl (13.5-17.5); IMMATURE GRANULOCYTE % 1.5 % (0-3.0); LYMPH # 0.6 10^3/uL (1.5-4.5); LYMPH % 4.9 % (24.0-44.0); MEAN CORPUSCULAR HEMOGLOBIN 29.1 pg (27.0-33.0); MEAN CORPUSCULAR HGB CONC 30.9 g/dl (32.0-36.5); MEAN CORPUSCULAR VOLUME 94.1 fl (80.0-96.0); MONO # 0.9 10^3/uL (0.0-0.8); MONO % 6.7 % (0.0-5.0); NEUTROPHILS # 11.2 10^3/uL (1.8-7.7); NEUTROPHILS % 86.6 % (36.0-66.0); PLATELET COUNT, AUTOMATED 307 10^3/uL (150-450); RED BLOOD COUNT 3.06 10^6/uL (4.30-6.10); RED CELL DISTRIBUTION WIDTH 17.6 % (11.5-14.5); WHITE BLOOD COUNT 12.9 10^3/uL (4.0-10.0)
[2018-02-11] MEDS: SLF 3 ML SYR IV ×4 (06:00→22:00)
[2018-02-11 06:09] LABS: ALBUMIN 2.5 GM/DL (3.2-5.2); ALBUMIN/GLOBULIN RATIO 0.89 (1.00-1.93); ALKALINE PHOSPHATASE 53 U/L (45-117); ALT/SGPT 25 U/L (12-78); ANION GAP 7 MEQ/L (8-16); AST/SGOT 13 U/L (7-37); BILIRUBIN,TOTAL 0.4 MG/DL (0.2-1.0); BLOOD UREA NITROGEN 41 MG/DL (7-18); CALCIUM LEVEL 7.9 MG/DL (8.8-10.2); CARBON DIOXIDE LEVEL 30 MEQ/L (21-32); CHLORIDE LEVEL 104 MEQ/L (98-107); GLOMERULAR FILTRATION RATE 42.4 (>42); GLUCOSE, FASTING 108 MG/DL (70-100); MAGNESIUM LEVEL 2.4 MG/DL (1.8-2.4); PHOSPHORUS LEVEL 3.6 MG/DL (2.5-4.9); POTASSIUM SERUM 4.3 MEQ/L (3.5-5.1); SODIUM LEVEL 141 MEQ/L (136-145); TOTAL PROTEIN 5.3 GM/DL (6.4-8.2)
[2018-02-11] MEDS: HumaLOG INSULIN (NovoLOG) PER UNIT SC ×4 (07:35→21:00)
[2018-02-11] MEDS: CYANOCOBALAMIN 500 MCG TAB PO ×3 (07:35→17:43)
[2018-02-11] MEDS: CYCLOPHOSPHAMIDE 25 MG PO ×2 (09:57→20:59)
[2018-02-11] MEDS: OMEPRAZOLE 20 MG CAP PO ×2 (09:58→20:57)
[2018-02-11] MEDS: ATORVASTATIN 20 MG TAB PO (09:58)
[2018-02-11] MEDS: predniSONE 20 MG TAB PO (09:58)
[2018-02-11] MEDS: FLUoxetine 20 MG CAP PO (09:58)
[2018-02-11] MEDS: MULTIVITAMINS/MINERALS THERAP 1 TAB PO ×2 (09:58→20:56)
[2018-02-11] MEDS: ASPIRIN 81 MG ENTERIC TAB PO (09:58)
[2018-02-11] MEDS: FUROSEMIDE 100 MG/10 ML VIAL (J1940) IV (09:59)
[2018-02-11] MEDS: SENOKOT S TAB PO ×2 (09:59→20:57)
[2018-02-11] MEDS: GABAPENTIN 300 MG CAP PO ×2 (09:59→20:57)
[2018-02-11] MEDS: TAMSULOSIN 0.4 MG CAP PO (09:59)
[2018-02-11 12:09] LABS: BEDSIDE GLUCOSE 132 MG/DL (83-110)
[2018-02-11 16:50] LABS: BEDSIDE GLUCOSE 210 MG/DL (83-110)
[2018-02-11] MEDS: WARFARIN SOD 4 MG TAB PO (17:43)
[2018-02-11 20:41] LABS: BEDSIDE GLUCOSE 150 MG/DL (83-110)
[2018-02-11] MEDS: RAMELTEON 8 MG TAB (ROZEREM) PO (20:57)
[2018-02-12] MEDS: HYDROcodone/APAP LIQUID 7.5-325MG 15ML UDC (LORTAB ELIXIR) PO ×2 (00:06→04:17)
[2018-02-12] MEDS: IPRATROPIUM 0.5MG/ALBUTEROL 2.5MG INH SOL UD 3ML (DUONEB)(J7620) NEB ×4 (02:00→20:40)
[2018-02-12 05:41] LABS: BASO % 0.1 % (0.0-1.0); EOS % 0.1 % (0.0-3.0); HEMATOCRIT 27.4 % (42.0-52.0); HEMOGLOBIN 8.7 g/dl (13.5-17.5); LYMPH # 0.5 10^3/uL (1.5-4.5); LYMPH % 4.6 % (24.0-44.0); MEAN CORPUSCULAR HEMOGLOBIN 29.9 pg (27.0-33.0); MEAN CORPUSCULAR HGB CONC 31.8 g/dl (32.0-36.5); MEAN CORPUSCULAR VOLUME 94.2 fl (80.0-96.0); MONO # 0.9 10^3/uL (0.0-0.8); MONO % 7.9 % (0.0-5.0); NEUTROPHILS # 9.6 10^3/uL (1.8-7.7); NEUTROPHILS % 86.3 % (36.0-66.0); PLATELET COUNT, AUTOMATED 276 10^3/uL (150-450); RED BLOOD COUNT 2.91 10^6/uL (4.30-6.10); RED CELL DISTRIBUTION WIDTH 18.3 % (11.5-14.5); WHITE BLOOD COUNT 11.2 10^3/uL (4.0-10.0)
[2018-02-12] MEDS: SLF 3 ML SYR IV ×3 (05:45→21:57)
[2018-02-12 05:54] LABS: INR 2.97; PROTHROMBIN TIME 31.5 SECONDS (12.1-14.4)
[2018-02-12 06:13] LABS: ALBUMIN 2.4 GM/DL (3.2-5.2); ALBUMIN/GLOBULIN RATIO 0.92 (1.00-1.93); ALKALINE PHOSPHATASE 50 U/L (45-117); ALT/SGPT 27 U/L (12-78); ANION GAP 8 MEQ/L (8-16); AST/SGOT 12 U/L (7-37); BILIRUBIN,TOTAL 0.4 MG/DL (0.2-1.0); BLOOD UREA NITROGEN 55 MG/DL (7-18); CALCIUM LEVEL 7.9 MG/DL (8.8-10.2); CARBON DIOXIDE LEVEL 28 MEQ/L (21-32); CHLORIDE LEVEL 103 MEQ/L (98-107); CREATININE FOR GFR 1.93 MG/DL (0.70-1.30); GLOMERULAR FILTRATION RATE 36.6 (>42); GLUCOSE, FASTING 112 MG/DL (70-100); MAGNESIUM LEVEL 2.5 MG/DL (1.8-2.4); PHOSPHORUS LEVEL 4.3 MG/DL (2.5-4.9); POTASSIUM SERUM 4.3 MEQ/L (3.5-5.1); SODIUM LEVEL 139 MEQ/L (136-145)
[2018-02-12] MEDS: HumaLOG INSULIN (NovoLOG) PER UNIT SC ×4 (06:38→20:46)
[2018-02-12] MEDS: FUROSEMIDE 100 MG/10 ML VIAL (J1940) IV (06:54)
[2018-02-12] MEDS: FLUoxetine 20 MG CAP PO (06:55)
[2018-02-12] MEDS: GABAPENTIN 300 MG CAP PO ×2 (06:55→20:44)
[2018-02-12] MEDS: OMEPRAZOLE 20 MG CAP PO ×2 (06:55→20:44)
[2018-02-12] MEDS: SENOKOT S TAB PO ×2 (06:55→20:44)
[2018-02-12] MEDS: predniSONE 20 MG TAB PO (06:55)
[2018-02-12] MEDS: BACTRIM 160MG/800MG DS TAB PO (06:56)
[2018-02-12] MEDS: TAMSULOSIN 0.4 MG CAP PO (06:56)
[2018-02-12] MEDS: ASPIRIN 81 MG ENTERIC TAB PO (06:56)
[2018-02-12] MEDS: MULTIVITAMINS/MINERALS THERAP 1 TAB PO ×2 (06:56→20:45)
[2018-02-12] MEDS: CYANOCOBALAMIN 500 MCG TAB PO ×3 (06:56→18:37)
[2018-02-12] MEDS: CYCLOPHOSPHAMIDE 25 MG PO ×2 (06:57→20:45)
[2018-02-12] MEDS: ATORVASTATIN 20 MG TAB PO (07:00)
[2018-02-12] MEDS: ANEXSIA, NORCO 7.5MG/325MG TABLET(HYDROCODONE/APAP) PO ×3 (08:47→18:37)
[2018-02-12] MEDS: HEPARIN 1,000 UNITS/ML 10ML VIAL (FOR RADIOLOGY& DIALYSIS ONLY) XX (09:30)
[2018-02-12 12:15] LABS: BEDSIDE GLUCOSE 153 MG/DL (83-110)
[2018-02-12] MEDS: ONDANSETRON 4MG/2ML VIAL (J2405) IV (12:34)
[2018-02-12] MEDS: TUBERCULIN PPD 5 UNITS/0.1 ML ID (15:38)
[2018-02-12 18:20] LABS: BEDSIDE GLUCOSE 192 MG/DL (83-110)
[2018-02-12 20:08] LABS: BEDSIDE GLUCOSE 159 MG/DL (83-110)
[2018-02-12] MEDS: RAMELTEON 8 MG TAB (ROZEREM) PO (20:44)
[2018-02-13] MEDS: IPRATROPIUM 0.5MG/ALBUTEROL 2.5MG INH SOL UD 3ML (DUONEB)(J7620) NEB ×4 (02:00→20:21)
[2018-02-13] MEDS: ANEXSIA, NORCO 7.5MG/325MG TABLET(HYDROCODONE/APAP) PO ×5 (04:29→21:25)
[2018-02-13] MEDS: MULTIVITAMINS/MINERALS THERAP 1 TAB PO ×2 (05:31→20:13)
[2018-02-13] MEDS: FLUoxetine 20 MG CAP PO (05:32)
[2018-02-13] MEDS: TAMSULOSIN 0.4 MG CAP PO (05:32)
[2018-02-13] MEDS: GABAPENTIN 300 MG CAP PO ×2 (05:32→20:13)
[2018-02-13] MEDS: OMEPRAZOLE 20 MG CAP PO ×2 (05:32→20:12)
[2018-02-13] MEDS: SENOKOT S TAB PO ×2 (05:34→20:12)
[2018-02-13] MEDS: predniSONE 20 MG TAB PO (05:34)
[2018-02-13] MEDS: ASPIRIN 81 MG ENTERIC TAB PO (05:34)
[2018-02-13] MEDS: CYANOCOBALAMIN 500 MCG TAB PO ×3 (05:35→17:16)
[2018-02-13] MEDS: ATORVASTATIN 20 MG TAB PO (05:35)
[2018-02-13] MEDS: SLF 3 ML SYR IV ×3 (05:36→20:14)
[2018-02-13] MEDS: FUROSEMIDE 100 MG/10 ML VIAL (J1940) IV (05:37)
[2018-02-13] MEDS: CYCLOPHOSPHAMIDE 25 MG PO ×2 (05:37→20:14)
[2018-02-13 05:38] LABS: BASO % 0.1 % (0.0-1.0); EOS % 0.4 % (0.0-3.0); HEMATOCRIT 33.9 % (42.0-52.0); IMMATURE GRANULOCYTE % 1.1 % (0-3.0); LYMPH % 9.5 % (24.0-44.0); MEAN CORPUSCULAR HEMOGLOBIN 29.3 pg (27.0-33.0); MEAN CORPUSCULAR HGB CONC 31.9 g/dl (32.0-36.5); MEAN CORPUSCULAR VOLUME 92.1 fl (80.0-96.0); MONO % 9.5 % (0.0-5.0); NEUTROPHILS # 8.5 10^3/uL (1.8-7.7); NEUTROPHILS % 79.4 % (36.0-66.0); PLATELET COUNT, AUTOMATED 336 10^3/uL (150-450); RED BLOOD COUNT 3.68 10^6/uL (4.30-6.10); RED CELL DISTRIBUTION WIDTH 19.6 % (11.5-14.5); WHITE BLOOD COUNT 10.7 10^3/uL (4.0-10.0)
[2018-02-13 05:45] LABS: HEMOGLOBIN 10.8 g/dl (13.5-17.5)
[2018-02-13 06:01] LABS: ALBUMIN 2.9 GM/DL (3.2-5.2); ALBUMIN/GLOBULIN RATIO 0.91 (1.00-1.93); ALKALINE PHOSPHATASE 65 U/L (45-117); ALT/SGPT 27 U/L (12-78); ANION GAP 7 MEQ/L (8-16); AST/SGOT 16 U/L (7-37); BILIRUBIN,TOTAL 0.6 MG/DL (0.2-1.0); BLOOD UREA NITROGEN 42 MG/DL (7-18); CALCIUM LEVEL 8.3 MG/DL (8.8-10.2); CARBON DIOXIDE LEVEL 29 MEQ/L (21-32); CHLORIDE LEVEL 102 MEQ/L (98-107); CREATININE FOR GFR 2.03 MG/DL (0.70-1.30); GLOMERULAR FILTRATION RATE 34.5 (>42); GLUCOSE, FASTING 119 MG/DL (70-100); MAGNESIUM LEVEL 2.3 MG/DL (1.8-2.4); POTASSIUM SERUM 4.1 MEQ/L (3.5-5.1); SODIUM LEVEL 138 MEQ/L (136-145); TOTAL PROTEIN 6.1 GM/DL (6.4-8.2)
[2018-02-13] MEDS: HumaLOG INSULIN (NovoLOG) PER UNIT SC ×4 (08:16→20:58)
[2018-02-13] MEDS: HEPARIN 1,000 UNITS/ML 10ML VIAL (FOR RADIOLOGY& DIALYSIS ONLY) XX (11:15)
[2018-02-13 11:26] LABS: INR 2.48; PROTHROMBIN TIME 27.4 SECONDS (12.1-14.4)
[2018-02-13 11:32] LABS: BEDSIDE GLUCOSE 163 MG/DL (83-110)
[2018-02-13 17:04] LABS: BEDSIDE GLUCOSE 173 MG/DL (83-110)
[2018-02-13] MEDS: WARFARIN SOD 4 MG TAB PO (17:17)
[2018-02-13] MEDS: RAMELTEON 8 MG TAB (ROZEREM) PO (20:12)
[2018-02-13 20:57] LABS: BEDSIDE GLUCOSE 129 MG/DL (83-110)
[2018-02-14] MEDS: IPRATROPIUM 0.5MG/ALBUTEROL 2.5MG INH SOL UD 3ML (DUONEB)(J7620) NEB ×4 (00:51→21:03)
[2018-02-14] MEDS: ANEXSIA, NORCO 7.5MG/325MG TABLET(HYDROCODONE/APAP) PO ×6 (01:26→22:44)
[2018-02-14 05:31] LABS: BASO % 0.2 % (0.0-1.0); EOS % 0.2 % (0.0-3.0); HEMOGLOBIN 10.2 g/dl (13.5-17.5); IMMATURE GRANULOCYTE % 1.9 % (0-3.0); LYMPH # 0.8 10^3/uL (1.5-4.5); LYMPH % 9.1 % (24.0-44.0); MEAN CORPUSCULAR HEMOGLOBIN 30.2 pg (27.0-33.0); MEAN CORPUSCULAR HGB CONC 31.9 g/dl (32.0-36.5); MEAN CORPUSCULAR VOLUME 94.7 fl (80.0-96.0); MONO # 0.9 10^3/uL (0.0-0.8); NEUTROPHILS # 6.8 10^3/uL (1.8-7.7); NEUTROPHILS % 78.6 % (36.0-66.0); PLATELET COUNT, AUTOMATED 274 10^3/uL (150-450); RED BLOOD COUNT 3.38 10^6/uL (4.30-6.10); RED CELL DISTRIBUTION WIDTH 20.2 % (11.5-14.5); WHITE BLOOD COUNT 8.6 10^3/uL (4.0-10.0)
[2018-02-14 05:41] LABS: INR 2.24; PROTHROMBIN TIME 25.3 SECONDS (12.1-14.4)
[2018-02-14] MEDS: SLF 3 ML SYR IV ×3 (05:43→22:00)
[2018-02-14 05:49] LABS: ALBUMIN 2.8 GM/DL (3.2-5.2); ALBUMIN/GLOBULIN RATIO 1.04 (1.00-1.93); ALKALINE PHOSPHATASE 59 U/L (45-117); ALT/SGPT 27 U/L (12-78); ANION GAP 9 MEQ/L (8-16); AST/SGOT 13 U/L (7-37); BILIRUBIN,TOTAL 0.5 MG/DL (0.2-1.0); BLOOD UREA NITROGEN 54 MG/DL (7-18); CALCIUM LEVEL 8.1 MG/DL (8.8-10.2); CARBON DIOXIDE LEVEL 28 MEQ/L (21-32); CHLORIDE LEVEL 103 MEQ/L (98-107); CREATININE FOR GFR 2.11 MG/DL (0.70-1.30); GLUCOSE, FASTING 97 MG/DL (70-100); MAGNESIUM LEVEL 2.6 MG/DL (1.8-2.4); PHOSPHORUS LEVEL 4.7 MG/DL (2.5-4.9); POTASSIUM SERUM 4.3 MEQ/L (3.5-5.1); SODIUM LEVEL 140 MEQ/L (136-145); TOTAL PROTEIN 5.5 GM/DL (6.4-8.2)
[2018-02-14] MEDS: HumaLOG INSULIN (NovoLOG) PER UNIT SC ×4 (08:00→20:27)
[2018-02-14] MEDS: FLUoxetine 20 MG CAP PO (08:41)
[2018-02-14] MEDS: ATORVASTATIN 20 MG TAB PO (08:42)
[2018-02-14] MEDS: SENOKOT S TAB PO ×2 (08:42→20:48)
[2018-02-14] MEDS: CYANOCOBALAMIN 500 MCG TAB PO ×3 (08:42→17:20)
[2018-02-14] MEDS: OMEPRAZOLE 20 MG CAP PO ×2 (08:43→20:48)
[2018-02-14] MEDS: MULTIVITAMINS/MINERALS THERAP 1 TAB PO (08:43)
[2018-02-14] MEDS: GABAPENTIN 300 MG CAP PO ×2 (08:44→20:47)
[2018-02-14] MEDS: CYCLOPHOSPHAMIDE 25 MG PO ×2 (08:48→20:48)
[2018-02-14] MEDS: FUROSEMIDE 100 MG/10 ML VIAL (J1940) IV (08:49)
[2018-02-14] MEDS: ASPIRIN 81 MG ENTERIC TAB PO (09:00)
[2018-02-14] MEDS: TAMSULOSIN 0.4 MG CAP PO (09:00)
[2018-02-14] MEDS: predniSONE 20 MG TAB PO (09:00)
[2018-02-14 11:33] LABS: BEDSIDE GLUCOSE 164 MG/DL (83-110)
[2018-02-14] MEDS ORDERED: TUBERCULIN PPD 5 UNITS/0.1 ML ID (15:00)
[2018-02-14] MEDS: PPD DOCUMENTATION ENTRY MISC XX (15:00)
[2018-02-14 16:24] LABS: BEDSIDE GLUCOSE 302 MG/DL (83-110)
[2018-02-14] MEDS: WARFARIN SOD 4 MG TAB PO (17:20)
[2018-02-14 20:13] LABS: BEDSIDE GLUCOSE 181 MG/DL (83-110)
[2018-02-14] MEDS: RAMELTEON 8 MG TAB (ROZEREM) PO (20:47)
[2018-02-15] MEDS: SLF 3 ML SYR IV (00:09)
[2018-02-15] MEDS: IPRATROPIUM 0.5MG/ALBUTEROL 2.5MG INH SOL UD 3ML (DUONEB)(J7620) NEB ×4 (01:07→21:40)
[2018-02-15] MEDS: ANEXSIA, NORCO 7.5MG/325MG TABLET(HYDROCODONE/APAP) PO ×5 (02:53→21:32)
[2018-02-15 06:40] LABS: BASO % 0.1 % (0.0-1.0); EOS % 0.1 % (0.0-3.0); IMMATURE GRANULOCYTE % 1.2 % (0-3.0); LYMPH # 0.5 10^3/uL (1.5-4.5); LYMPH % 6.1 % (24.0-44.0); MEAN CORPUSCULAR HEMOGLOBIN 29.7 pg (27.0-33.0); MEAN CORPUSCULAR HGB CONC 31.3 g/dl (32.0-36.5); MONO # 0.8 10^3/uL (0.0-0.8); MONO % 10.9 % (0.0-5.0); NEUTROPHILS # 6.1 10^3/uL (1.8-7.7); NEUTROPHILS % 81.6 % (36.0-66.0); PLATELET COUNT, AUTOMATED 276 10^3/uL (150-450); RED BLOOD COUNT 3.37 10^6/uL (4.30-6.10); RED CELL DISTRIBUTION WIDTH 21.2 % (11.5-14.5); WHITE BLOOD COUNT 7.5 10^3/uL (4.0-10.0)
[2018-02-15 06:48] LABS: INR 2.67
[2018-02-15 06:56] LABS: ALBUMIN 2.8 GM/DL (3.2-5.2); ALBUMIN/GLOBULIN RATIO 0.97 (1.00-1.93); ALKALINE PHOSPHATASE 59 U/L (45-117); ALT/SGPT 25 U/L (12-78); ANION GAP 9 MEQ/L (8-16); AST/SGOT 16 U/L (7-37); BILIRUBIN,TOTAL 0.4 MG/DL (0.2-1.0); BLOOD UREA NITROGEN 60 MG/DL (7-18); CALCIUM LEVEL 7.8 MG/DL (8.8-10.2); CARBON DIOXIDE LEVEL 27 MEQ/L (21-32); CHLORIDE LEVEL 103 MEQ/L (98-107); CREATININE FOR GFR 1.83 MG/DL (0.70-1.30); GLOMERULAR FILTRATION RATE 38.9 (>42); GLUCOSE, FASTING 100 MG/DL (70-100); MAGNESIUM LEVEL 2.7 MG/DL (1.8-2.4); PHOSPHORUS LEVEL 4.9 MG/DL (2.5-4.9); POTASSIUM SERUM 4.2 MEQ/L (3.5-5.1); SODIUM LEVEL 139 MEQ/L (136-145); TOTAL PROTEIN 5.7 GM/DL (6.4-8.2)
[2018-02-15] MEDS: HumaLOG INSULIN (NovoLOG) PER UNIT SC ×4 (07:30→21:00)
[2018-02-15] MEDS: CYANOCOBALAMIN 500 MCG TAB PO ×3 (07:57→17:44)
[2018-02-15] MEDS: SENOKOT S TAB PO ×2 (07:58→21:42)
[2018-02-15] MEDS: ATORVASTATIN 20 MG TAB PO (07:58)
[2018-02-15] MEDS: TAMSULOSIN 0.4 MG CAP PO (07:58)
[2018-02-15] MEDS: ASPIRIN 81 MG ENTERIC TAB PO (07:58)
[2018-02-15] MEDS: GABAPENTIN 300 MG CAP PO ×2 (07:59→21:32)
[2018-02-15] MEDS: OMEPRAZOLE 20 MG CAP PO ×2 (08:00→21:32)
[2018-02-15] MEDS: predniSONE 50 MG TAB PO (08:00)
[2018-02-15] MEDS: CYCLOPHOSPHAMIDE 25 MG PO ×2 (08:01→21:31)
[2018-02-15] MEDS: BACTRIM 160MG/800MG DS TAB PO (08:01)
[2018-02-15] MEDS: FLUoxetine 20 MG CAP PO (08:01)
[2018-02-15 11:45] LABS: BEDSIDE GLUCOSE 143 MG/DL (83-110)
[2018-02-15] MEDS: HEPARIN 1,000 UNITS/ML 10ML VIAL (FOR RADIOLOGY& DIALYSIS ONLY) XX (15:30)
[2018-02-15 17:21] LABS: BEDSIDE GLUCOSE 162 MG/DL (83-110)
[2018-02-15] MEDS: WARFARIN SOD 4 MG TAB PO (17:43)
[2018-02-15 19:01] LABS: APPEARANCE, URINE CLEAR (CLEAR); BACTERIA, URINE AUTO 1+ (NEGATIVE); BILIRUBIN, URINE AUTO NEGATIVE (NEGATIVE); BLOOD, URINE BLOOD NEGATIVE (NEGATIVE); COLOR, URINE YELLOW (YELLOW); GLUCOSE, URINE (UA) AUTO NEGATIVE (NEGATIVE); KETONE, URINE AUTO NEGATIVE (NEGATIVE); LEUKOCYTE ESTERASE, URINE AUTO 2+ (NEGATIVE); NITRITE, URINE AUTO NEGATIVE (NEGATIVE); PROTEIN, URINE AUTO 3+ mg/dL (NEGATIVE); RBC, URINE AUTO 5 /HPF (0-3); SPECIFIC GRAVITY URINE AUTO 1.019 (1.002-1.035); SQUAMOUS EPITHELIAL CELL UR AU 0 /HPF (0-6); UROBILINOGEN, URINE AUTO 0.2 mg/dL (0.0-2.0); WBC, URINE AUTO 11 /HPF (0-3)
[2018-02-15 19:10] LABS: TOTAL PROTEIN,RANDOM URINE 241.2 MG/DL (0.0-12.0)
[2018-02-15 20:10] LABS: BEDSIDE GLUCOSE 141 MG/DL (83-110)
[2018-02-15] MEDS: RAMELTEON 8 MG TAB (ROZEREM) PO (21:32)
[2018-02-15] MEDS: diphenhydrAMINE 25 MG CAP PO (23:24)
[2018-02-16] MEDS: IPRATROPIUM 0.5MG/ALBUTEROL 2.5MG INH SOL UD 3ML (DUONEB)(J7620) NEB ×4 (02:00→20:57)
[2018-02-16] MEDS: FLUoxetine 20 MG CAP PO (05:29)
[2018-02-16] MEDS: ATORVASTATIN 20 MG TAB PO (05:30)
[2018-02-16] MEDS: SENOKOT S TAB PO ×2 (05:30→20:14)
[2018-02-16] MEDS: CYCLOPHOSPHAMIDE 25 MG PO ×2 (05:30→20:17)
[2018-02-16] MEDS: CYANOCOBALAMIN 500 MCG TAB PO ×3 (05:30→18:11)
[2018-02-16] MEDS: GABAPENTIN 300 MG CAP PO ×2 (05:30→20:15)
[2018-02-16] MEDS: ASPIRIN 81 MG ENTERIC TAB PO (05:31)
[2018-02-16] MEDS: predniSONE 50 MG TAB PO (05:31)
[2018-02-16] MEDS: OMEPRAZOLE 20 MG CAP PO ×2 (05:31→20:15)
[2018-02-16] MEDS: TAMSULOSIN 0.4 MG CAP PO (05:31)
[2018-02-16] MEDS: ANEXSIA, NORCO 7.5MG/325MG TABLET(HYDROCODONE/APAP) PO ×4 (05:32→20:16)
[2018-02-16 06:22] LABS: EOS % 0.3 % (0.0-3.0); HEMATOCRIT 32.2 % (42.0-52.0); HEMOGLOBIN 10.4 g/dl (13.5-17.5); LYMPH # 0.5 10^3/uL (1.5-4.5); LYMPH % 7.5 % (24.0-44.0); MEAN CORPUSCULAR HEMOGLOBIN 30.5 pg (27.0-33.0); MEAN CORPUSCULAR HGB CONC 32.3 g/dl (32.0-36.5); MEAN CORPUSCULAR VOLUME 94.4 fl (80.0-96.0); MONO # 0.9 10^3/uL (0.0-0.8); MONO % 11.7 % (0.0-5.0); NEUTROPHILS # 5.8 10^3/uL (1.8-7.7); NEUTROPHILS % 79.5 % (36.0-66.0); PLATELET COUNT, AUTOMATED 249 10^3/uL (150-450); RED BLOOD COUNT 3.41 10^6/uL (4.30-6.10); RED CELL DISTRIBUTION WIDTH 21.7 % (11.5-14.5); WHITE BLOOD COUNT 7.2 10^3/uL (4.0-10.0)
[2018-02-16 06:45] LABS: INR 3.23; PROTHROMBIN TIME 33.7 SECONDS (12.1-14.4)
[2018-02-16 06:46] LABS: ALBUMIN/GLOBULIN RATIO 1.07 (1.00-1.93); ALKALINE PHOSPHATASE 58 U/L (45-117); ALT/SGPT 26 U/L (12-78); ANION GAP 9 MEQ/L (8-16); AST/SGOT 16 U/L (7-37); BILIRUBIN,TOTAL 0.7 MG/DL (0.2-1.0); BLOOD UREA NITROGEN 70 MG/DL (7-18); CALCIUM LEVEL 8.1 MG/DL (8.8-10.2); CARBON DIOXIDE LEVEL 27 MEQ/L (21-32); CHLORIDE LEVEL 99 MEQ/L (98-107); CREATININE FOR GFR 1.98 MG/DL (0.70-1.30); GLOMERULAR FILTRATION RATE 35.5 (>42); GLUCOSE, FASTING 93 MG/DL (70-100); MAGNESIUM LEVEL 2.5 MG/DL (1.8-2.4); POTASSIUM SERUM 4.2 MEQ/L (3.5-5.1); SODIUM LEVEL 135 MEQ/L (136-145); TOTAL PROTEIN 5.8 GM/DL (6.4-8.2)
[2018-02-16] MEDS: HumaLOG INSULIN (NovoLOG) PER UNIT SC ×4 (07:10→20:49)
[2018-02-16 11:36] LABS: BEDSIDE GLUCOSE 169 MG/DL (83-110)
[2018-02-16] MEDS: BUMETANIDE 1 MG TAB PO (11:42)
[2018-02-16 17:30] LABS: BEDSIDE GLUCOSE 185 MG/DL (83-110)
[2018-02-16] MEDS: WARFARIN SOD 4 MG TAB PO (18:12)
[2018-02-16] MEDS: RAMELTEON 8 MG TAB (ROZEREM) PO (20:15)
[2018-02-16 20:36] LABS: BEDSIDE GLUCOSE 143 MG/DL (83-110)
[2018-02-17] MEDS: ANEXSIA, NORCO 7.5MG/325MG TABLET(HYDROCODONE/APAP) PO ×5 (00:33→20:39)
[2018-02-17] MEDS: IPRATROPIUM 0.5MG/ALBUTEROL 2.5MG INH SOL UD 3ML (DUONEB)(J7620) NEB ×4 (01:44→20:55)
[2018-02-17 06:11] LABS: BASO % 0.1 % (0.0-1.0); EOS % 0.1 % (0.0-3.0); HEMATOCRIT 31.6 % (42.0-52.0); HEMOGLOBIN 10.1 g/dl (13.5-17.5); IMMATURE GRANULOCYTE % 0.9 % (0-3.0); LYMPH # 0.6 10^3/uL (1.5-4.5); LYMPH % 8.7 % (24.0-44.0); MEAN CORPUSCULAR HEMOGLOBIN 29.9 pg (27.0-33.0); MEAN CORPUSCULAR VOLUME 93.5 fl (80.0-96.0); MONO # 0.8 10^3/uL (0.0-0.8); MONO % 11.6 % (0.0-5.0); NEUTROPHILS # 5.4 10^3/uL (1.8-7.7); NEUTROPHILS % 78.6 % (36.0-66.0); PLATELET COUNT, AUTOMATED 240 10^3/uL (150-450); RED BLOOD COUNT 3.38 10^6/uL (4.30-6.10); RED CELL DISTRIBUTION WIDTH 22.6 % (11.5-14.5); WHITE BLOOD COUNT 6.8 10^3/uL (4.0-10.0)
[2018-02-17 06:29] LABS: INR 3.47; PROTHROMBIN TIME 35.7 SECONDS (12.1-14.4)
[2018-02-17 06:37] LABS: ALBUMIN 2.9 GM/DL (3.2-5.2); ALBUMIN/GLOBULIN RATIO 1.07 (1.00-1.93); ALKALINE PHOSPHATASE 54 U/L (45-117); ALT/SGPT 25 U/L (12-78); ANION GAP 9 MEQ/L (8-16); AST/SGOT 14 U/L (7-37); BILIRUBIN,TOTAL 0.6 MG/DL (0.2-1.0); BLOOD UREA NITROGEN 76 MG/DL (7-18); CALCIUM LEVEL 7.9 MG/DL (8.8-10.2); CARBON DIOXIDE LEVEL 25 MEQ/L (21-32); CHLORIDE LEVEL 102 MEQ/L (98-107); CREATININE FOR GFR 1.81 MG/DL (0.70-1.30); GLOMERULAR FILTRATION RATE 39.4 (>42); GLUCOSE, FASTING 84 MG/DL (70-100); MAGNESIUM LEVEL 2.7 MG/DL (1.8-2.4); SODIUM LEVEL 136 MEQ/L (136-145); TOTAL PROTEIN 5.6 GM/DL (6.4-8.2)
[2018-02-17] MEDS: HumaLOG INSULIN (NovoLOG) PER UNIT SC ×4 (07:30→21:00)
[2018-02-17] MEDS: FLUoxetine 20 MG CAP PO (08:45)
[2018-02-17] MEDS: CYANOCOBALAMIN 500 MCG TAB PO ×3 (08:45→17:29)
[2018-02-17] MEDS: BACTRIM 160MG/800MG DS TAB PO (08:45)
[2018-02-17] MEDS: predniSONE 50 MG TAB PO (08:45)
[2018-02-17] MEDS: SENOKOT S TAB PO ×2 (08:45→20:38)
[2018-02-17] MEDS: TAMSULOSIN 0.4 MG CAP PO (08:45)
[2018-02-17] MEDS: ATORVASTATIN 20 MG TAB PO (08:45)
[2018-02-17] MEDS: ASPIRIN 81 MG ENTERIC TAB PO (08:45)
[2018-02-17] MEDS: GABAPENTIN 300 MG CAP PO ×2 (08:45→20:38)
[2018-02-17] MEDS: OMEPRAZOLE 20 MG CAP PO ×2 (08:46→20:38)
[2018-02-17] MEDS: BUMETANIDE 1 MG TAB PO (08:46)
[2018-02-17] MEDS: CYCLOPHOSPHAMIDE 25 MG PO ×2 (08:46→20:39)
[2018-02-17 11:32] LABS: BEDSIDE GLUCOSE 212 MG/DL (83-110)
[2018-02-17 17:19] LABS: BEDSIDE GLUCOSE 288 MG/DL (83-110)
[2018-02-17] MEDS: RAMELTEON 8 MG TAB (ROZEREM) PO (20:38)
[2018-02-17 21:28] LABS: BEDSIDE GLUCOSE 172 MG/DL (83-110)
[2018-02-18] MEDS: IPRATROPIUM 0.5MG/ALBUTEROL 2.5MG INH SOL UD 3ML (DUONEB)(J7620) NEB ×2 (02:00→08:57)
[2018-02-18] MEDS: ANEXSIA, NORCO 7.5MG/325MG TABLET(HYDROCODONE/APAP) PO ×3 (02:26→10:39)
[2018-02-18 05:45] LABS: BEDSIDE GLUCOSE 108 MG/DL (83-110)
[2018-02-18 06:38] LABS: INR 3.31; PROTHROMBIN TIME 34.4 SECONDS (12.1-14.4)
[2018-02-18] MEDS: FLUoxetine 20 MG CAP PO (08:32)
[2018-02-18] MEDS: HumaLOG INSULIN (NovoLOG) PER UNIT SC (08:32)
[2018-02-18] MEDS: CYCLOPHOSPHAMIDE 25 MG PO (08:33)
[2018-02-18] MEDS: CYANOCOBALAMIN 500 MCG TAB PO (08:33)
[2018-02-18] MEDS: BUMETANIDE 1 MG TAB PO (08:34)
[2018-02-18] MEDS: OMEPRAZOLE 20 MG CAP PO (08:34)
[2018-02-18] MEDS: GABAPENTIN 300 MG CAP PO (08:34)
[2018-02-18] MEDS: predniSONE 50 MG TAB PO (08:35)
[2018-02-18] MEDS: TAMSULOSIN 0.4 MG CAP PO (08:35)
[2018-02-18] MEDS: ATORVASTATIN 20 MG TAB PO (08:35)
[2018-02-18] MEDS: ASPIRIN 81 MG ENTERIC TAB PO (08:35)
[2018-02-18] MEDS: SENOKOT S TAB PO (08:36)
[2018-02-18 08:51] LABS: HEMATOCRIT 32.5 % (42.0-52.0); HEMOGLOBIN 10.3 g/dl (13.5-17.5); MEAN CORPUSCULAR HEMOGLOBIN 30.4 pg (27.0-33.0); MEAN CORPUSCULAR HGB CONC 31.7 g/dl (32.0-36.5); MEAN CORPUSCULAR VOLUME 95.9 fl (80.0-96.0); PLATELET COUNT, AUTOMATED 216 10^3/uL (150-450); RED BLOOD COUNT 3.39 10^6/uL (4.30-6.10); RED CELL DISTRIBUTION WIDTH 22.8 % (11.5-14.5); WHITE BLOOD COUNT 6.9 10^3/uL (4.0-10.0)
[2018-02-18 09:11] LABS: ANION GAP 10 MEQ/L (8-16); BLOOD UREA NITROGEN 69 MG/DL (7-18); CARBON DIOXIDE LEVEL 25 MEQ/L (21-32); CHLORIDE LEVEL 103 MEQ/L (98-107); CREATININE FOR GFR 1.94 MG/DL (0.70-1.30); GLOMERULAR FILTRATION RATE 36.4 (>42); GLUCOSE, FASTING 117 MG/DL (70-100); PHOSPHORUS LEVEL 4.9 MG/DL (2.5-4.9); SODIUM LEVEL 138 MEQ/L (136-145)
[2018-02-18 11:13] LABS: BEDSIDE GLUCOSE 139 MG/DL (83-110)
[2018-02-18] MEDS ORDERED: BUMETANIDE 1 MG TAB PO (21:00)
== END 2018-02-18 12:01 | disposition home or self-care (01) | DRG 291 ==
LOC: M PCU 02-09 18:38 → M ICU 01-28 11:51 → M MS5PR 02-12 15:50 → M ED 11:20 → M ED INP 16:58 → M PCU 21:39
PROC: 0W993ZZ Drainage of Right Pleural Cavity, Percutaneous Approach (ICD-10-PCS; 2018-01-15)
PROC: 30233N1 Transfusion of Nonautologous Red Blood Cells into Peripheral Vein, Percutaneous Approach (ICD-10-PCS; 2018-01-18)
PROC: 0JH63XZ Insertion of Tunneled Vascular Access Device into Chest Subcutaneous Tissue and Fascia, Percutaneous Approach (ICD-10-PCS; principal; 2018-01-27)
PROC: 02HV33Z Insertion of Infusion Device into Superior Vena Cava, Percutaneous Approach (ICD-10-PCS; 2018-01-27)
PROC: B5131ZA Fluoroscopy of Right Jugular Veins using Low Osmolar Contrast, Guidance (ICD-10-PCS; 2018-01-27)
PROC: 5A1D70Z Performance of Urinary Filtration, Intermittent, Less than 6 Hours Per Day (ICD-10-PCS; 2018-01-27)
DX: I11.0 Hypertensive heart disease with heart failure (principal); J96.21 Acute and chronic respiratory failure with hypoxia; I26.99 Other pulmonary embolism without acute cor pulmonale; N04.2 Nephrotic syndrome with diffuse membranous glomerulonephritis; R04.2 Hemoptysis; N17.9 Acute kidney failure, unspecified; D84.9 Immunodeficiency, unspecified; Z66 Do not resuscitate; J44.9 Chronic obstructive pulmonary disease, unspecified; I50.32 Chronic diastolic (congestive) heart failure; M32.14 Glomerular disease in systemic lupus erythematosus; E11.9 Type 2 diabetes mellitus without complications; E88.09 Other disorders of plasma-protein metabolism, not elsewhere classified; I48.2 Chronic atrial fibrillation; I27.20 Pulmonary hypertension, unspecified; E87.6 Hypokalemia; M32.13 Lung involvement in systemic lupus erythematosus; M1A.30X0 Chronic gout due to renal impairment, unspecified site, without tophus (tophi); D64.9 Anemia, unspecified; N18.3 Chronic kidney disease, stage 3 (moderate); F41.9 Anxiety disorder, unspecified; N40.0 Benign prostatic hyperplasia without lower urinary tract symptoms; F32.9 Major depressive disorder, single episode, unspecified; G47.00 Insomnia, unspecified; K21.9 Gastro-esophageal reflux disease without esophagitis; E78.5 Hyperlipidemia, unspecified; R26.81 Unsteadiness on feet; Z96.653 Presence of artificial knee joint, bilateral; Z98.1 Arthrodesis status; Z87.891 Personal history of nicotine dependence; Z79.01 Long term (current) use of anticoagulants; Z79.899 Other long term (current) drug therapy; Z79.51 Long term (current) use of inhaled steroids; Z88.8 Allergy status to other drugs, medicaments and biological substances; Z99.81 Dependence on supplemental oxygen

== ENCOUNTER → 2018-01-15 | Outpatient (CLI) | payer OTHER ==
[2018-01-15 10:14] LABS: INR 1.25; PROTHROMBIN TIME 15.9 SECONDS (12.1-14.4)
[2018-01-15 10:21] LABS: ALBUMIN 2.3 GM/DL (3.2-5.2); ALBUMIN/GLOBULIN RATIO 0.79 (1.00-1.93); ALKALINE PHOSPHATASE 57 U/L (45-117); ALT/SGPT 25 U/L (12-78); ANION GAP 9 MEQ/L (8-16); AST/SGOT 19 U/L (7-37); BILIRUBIN,TOTAL 0.5 MG/DL (0.2-1.0); BLOOD UREA NITROGEN 44 MG/DL (7-18); CALCIUM LEVEL 8.1 MG/DL (8.8-10.2); CARBON DIOXIDE LEVEL 32 MEQ/L (21-32); CHLORIDE LEVEL 104 MEQ/L (98-107); CHOLESTEROL LEVEL 202 MG/DL (<200); CHOLESTEROL RISK RATIO 1.655 (<5); GLUCOSE, FASTING 144 MG/DL (70-100); HDL CHOLESTEROL 122 MG/DL (>40); LDH LACTATE DEHYDROGENASE 293 U/L (87-241); LDL CHOLESTEROL 57.2 MG/DL (<100); NON-HDL-C 80 MG/DL; POTASSIUM SERUM 3.7 MEQ/L (3.5-5.1); SODIUM LEVEL 145 MEQ/L (136-145); TOTAL PROTEIN 5.2 GM/DL (6.4-8.2); TRIGLYCERIDES LEVEL 114 MG/DL (<150)
[2018-01-15 11:03] LABS: PH BODY FLUID 7.691 UNITS (NOT ESTABLISHED); SOURCE, BODY FLUID pH PLEURAL
[2018-01-15 11:07] LABS: BF MONONUCLEAR CELL % 69.3 % (0-0); BF POLYMORPHONUCLEAR CELL % 30.7 % (0-0); RBC BODY FLUID < 2 10^3/uL (<2); WBC BODY FLUID 469 /uL (0-10)
[2018-01-15 11:08] LABS: APPEARANCE, BODY FLUID CLEAR (CLEAR); BF DIFF IF INDICATED? YES (NO); PLEURAL FL COLOR PALE YELLOW (COLORLESS); SOURCE, BODY FLUID PLEURAL
[2018-01-15 11:23] LABS: AMYLASE, BODY FLUID 12 U/L (NOT ESTABLISHED); CHOLESTEROL, BODY FLUID < 50 MG/DL (NOT ESTABLISHED); LDH, BODY FLUID 59 U/L (NOT ESTABLISHED); SOURCE, BODY FLUID AMYLASE PLEURAL; SOURCE, BODY FLUID CHOL PLEURAL; SOURCE, BODY FLUID GLUCOSE PLEURAL; SOURCE, BODY FLUID LDH PLEURAL; SOURCE, BODY FLUID TOT PROTEIN PLEURAL; SOURCE, BODY FLUID TRIG PLEURAL; TOTAL PROTEIN, BODY FLUID 0.6 G/DL (NOT ESTABLISHED); TRIGLYCERIDE, BODY FLUID 13 MG/DL (NOT ESTABLISHED)
== END ==
LOC: M RADPRO 09:29
DX: J90 Pleural effusion, not elsewhere classified (principal)

== ENCOUNTER 2018-02-28 09:51 | Inpatient (IN) | payer OTHER, MEDICARE ==
[2018-02-28] MEDS: predniSONE 50 MG TAB PO (09:00)
[2018-02-28] MEDS ORDERED: NITROGLYCERIN 0.4 MG SUBL TABLET SL (10:00)
[2018-02-28 10:14] LABS: ABG O2 SATURATION 91.7 % (95.0-99.0); ABG PARTIAL PRESSURE CO2 37.8 mmHg (35.0-45.0); ABG PARTIAL PRESSURE O2 62.7 mmHg (75.0-100.0); ABG STANDARD HCO3 25.2 MEQ/L (22.0-26.0); ABG TOTAL CO2 26.2 MEQ/L (23.0-31.0); ABG pH (ARTERIAL) 7.439 UNITS (7.350-7.450)
[2018-02-28 10:15] LABS: BASO % 0.1 % (0.0-1.0); HEMOGLOBIN 9.6 g/dl (13.5-17.5); IMMATURE GRANULOCYTE % 1.1 % (0-3.0); LYMPH # 0.4 10^3/uL (1.5-4.5); LYMPH % 5.6 % (24.0-44.0); MEAN CORPUSCULAR HEMOGLOBIN 31.1 pg (27.0-33.0); MEAN CORPUSCULAR VOLUME 100.3 fl (80.0-96.0); MONO # 0.4 10^3/uL (0.0-0.8); MONO % 5.9 % (0.0-5.0); NEUTROPHILS # 6.3 10^3/uL (1.8-7.7); NEUTROPHILS % 87.3 % (36.0-66.0); PLATELET COUNT, AUTOMATED 218 10^3/uL (150-450); RED BLOOD COUNT 3.09 10^6/uL (4.30-6.10); RED CELL DISTRIBUTION WIDTH 25.3 % (11.5-14.5); WHITE BLOOD COUNT 7.3 10^3/uL (4.0-10.0)
[2018-02-28] MEDS: ASPIRIN 81 MG CHEW TABLET PO (10:21)
[2018-02-28] MEDS: FUROSEMIDE 40 MG/4 ML VIAL (J1940) IV (10:34)
[2018-02-28 10:40] LABS: PROTHROMBIN TIME 27.6 SECONDS (12.1-14.4)
[2018-02-28 10:45] LABS: ALBUMIN 2.8 GM/DL (3.2-5.2); ALBUMIN/GLOBULIN RATIO 1.12 (1.00-1.93); ALKALINE PHOSPHATASE 64 U/L (45-117); ALT/SGPT 30 U/L (12-78); ANION GAP 8 MEQ/L (8-16); AST/SGOT 20 U/L (7-37); BILIRUBIN,DIRECT 0.2 MG/DL (0.0-0.2); BILIRUBIN,TOTAL 0.6 MG/DL (0.2-1.0); BLOOD UREA NITROGEN 53 MG/DL (7-18); CALCIUM LEVEL 8.3 MG/DL (8.8-10.2); CARBON DIOXIDE LEVEL 29 MEQ/L (21-32); CHLORIDE LEVEL 108 MEQ/L (98-107); CPK CREATINE PHOSPHOKINASE 21 U/L (39-308); CREATININE FOR GFR 1.47 MG/DL (0.70-1.30); GLOMERULAR FILTRATION RATE 50.1 (>42); GLUCOSE, FASTING 117 MG/DL (70-100); POTASSIUM SERUM 4.6 MEQ/L (3.5-5.1); SODIUM LEVEL 145 MEQ/L (136-145); TOTAL PROTEIN 5.3 GM/DL (6.4-8.2); TROPONIN I 0.04 NG/ML (< 0.10)
[2018-02-28 10:50] LABS: LACTIC ACID SEPSIS PROTOCOL 2.6 MMOL/L (0.4-2.0)
[2018-02-28 10:51] LABS: CK-MB VALUE MASS 1.9 NG/ML (<3.6); MB/CK RELATIVE INDEX 9.04 (< OR =4); NT-PRO BNP 15164 PG/ML (<125)
[2018-02-28] MEDS ORDERED: ONDANSETRON 4MG/2ML VIAL (J2405) IV (11:15)
[2018-02-28] MEDS ORDERED: HEPARIN SOD (PORCINE) 5000 UNITS/ML VIAL SC (11:15)
[2018-02-28] MEDS ORDERED: LACTIC ACID 12% LOTION 225 GM BTL TOP (11:15)
[2018-02-28] MEDS ORDERED: POLYVINYL ALCOHOL OPHTH SOLN 15 ML(LIQUITEARS) OU (11:15)
[2018-02-28] MEDS ORDERED: ACETAMINOPHEN 650 MG SUPP PR (11:15)
[2018-02-28] MEDS ORDERED: PILL CRUSHER/CUTTER 1 EACH XX (12:15)
[2018-02-28] MEDS ORDERED: PREVNAR 13 VACCINE SYRINGE (CPT CODE:90670) IM ×2 (14:00→14:45)
[2018-02-28] MEDS ORDERED: INFLUENZA VIRUS VACCINE HIGH DOSE 0.5 ML SYRINGE (90662) IM ×2 (14:00→14:45)
[2018-02-28] MEDS: TAMSULOSIN 0.4 MG CAP PO (14:30)
[2018-02-28] MEDS: OMEPRAZOLE 20 MG CAP PO ×2 (14:35→20:13)
[2018-02-28] MEDS: CYANOCOBALAMIN 500 MCG TAB PO ×2 (14:35→18:44)
[2018-02-28] MEDS: FEBUXOSTAT 40 MG TABLET (ULORIC) PO (14:35)
[2018-02-28] MEDS: ATORVASTATIN 20 MG TAB PO (14:35)
[2018-02-28] MEDS: MULTIVITAMINS/MINERALS THERAP 1 TAB PO ×2 (14:35→20:13)
[2018-02-28] MEDS: FLUoxetine 20 MG CAP PO (14:35)
[2018-02-28] MEDS: CHLOROTHIAZIDE 500 MG VIAL (J1205) IV (16:38)
[2018-02-28] MEDS: ANEXSIA, NORCO 7.5MG/325MG TABLET(HYDROCODONE/APAP) PO ×2 (16:39→21:37)
[2018-02-28] MEDS: FUROSEMIDE 100 MG/10 ML VIAL (J1940) IV ×2 (16:39→21:13)
[2018-02-28] MEDS: WARFARIN SOD 4 MG TAB PO (16:39)
[2018-02-28 17:30] LABS: CK-MB VALUE MASS 1.5 NG/ML (<3.6); CPK CREATINE PHOSPHOKINASE 16 U/L (39-308); MB/CK RELATIVE INDEX 9.37 (< OR =4); TROPONIN I 0.04 NG/ML (< 0.10)
[2018-02-28] MEDS: CYCLOPHOSPHAMIDE 25 MG PO (20:14)
[2018-02-28] MEDS: zolPIDEM TARTRATE 5 MG TAB PO (21:36)
[2018-03-01 01:46] LABS: CK-MB VALUE MASS 1.4 NG/ML (<3.6); CPK CREATINE PHOSPHOKINASE 10 U/L (39-308); TROPONIN I 0.04 NG/ML (< 0.10)
[2018-03-01] MEDS: ANEXSIA, NORCO 7.5MG/325MG TABLET(HYDROCODONE/APAP) PO ×6 (01:58→22:01)
[2018-03-01] MEDS: FUROSEMIDE 100 MG/10 ML VIAL (J1940) IV ×4 (03:10→21:07)
[2018-03-01 04:46] LABS: BASO % 0.3 % (0.0-1.0); EOS % 0.3 % (0.0-3.0); HEMATOCRIT 25.9 % (42.0-52.0); HEMOGLOBIN 8.2 g/dl (13.5-17.5); IMMATURE GRANULOCYTE % 1.4 % (0-3.0); LYMPH # 0.3 10^3/uL (1.5-4.5); LYMPH % 7.2 % (24.0-44.0); MEAN CORPUSCULAR HEMOGLOBIN 31.3 pg (27.0-33.0); MEAN CORPUSCULAR HGB CONC 31.7 g/dl (32.0-36.5); MEAN CORPUSCULAR VOLUME 98.9 fl (80.0-96.0); MONO # 0.2 10^3/uL (0.0-0.8); MONO % 5.8 % (0.0-5.0); NEUTROPHILS # 2.9 10^3/uL (1.8-7.7); PLATELET COUNT, AUTOMATED 184 10^3/uL (150-450); RED BLOOD COUNT 2.62 10^6/uL (4.30-6.10); RED CELL DISTRIBUTION WIDTH 25.2 % (11.5-14.5); WHITE BLOOD COUNT 3.5 10^3/uL (4.0-10.0)
[2018-03-01 04:58] LABS: ALBUMIN 2.2 GM/DL (3.2-5.2); ANION GAP 7 MEQ/L (8-16); BLOOD UREA NITROGEN 48 MG/DL (7-18); CALCIUM LEVEL 8.4 MG/DL (8.8-10.2); CARBON DIOXIDE LEVEL 32 MEQ/L (21-32); CHLORIDE LEVEL 105 MEQ/L (98-107); CREATININE FOR GFR 1.26 MG/DL (0.70-1.30); GLOMERULAR FILTRATION RATE 59.9 (>42); GLUCOSE, FASTING 76 MG/DL (70-100); PHOSPHORUS LEVEL 3.9 MG/DL (2.5-4.9); SODIUM LEVEL 144 MEQ/L (136-145)
[2018-03-01 05:22] LABS: POSITIVE DIFF POS FLAG
[2018-03-01] MEDS ORDERED: BACTRIM 160MG/800MG DS TAB PO (09:00)
[2018-03-01] MEDS: CYCLOPHOSPHAMIDE 25 MG PO ×2 (09:08→20:12)
[2018-03-01] MEDS: OMEPRAZOLE 20 MG CAP PO ×2 (09:09→20:12)
[2018-03-01] MEDS: ATORVASTATIN 20 MG TAB PO (09:09)
[2018-03-01] MEDS: MULTIVITAMINS/MINERALS THERAP 1 TAB PO ×2 (09:09→20:12)
[2018-03-01] MEDS: FLUoxetine 20 MG CAP PO (09:09)
[2018-03-01] MEDS: predniSONE 50 MG TAB PO (09:10)
[2018-03-01] MEDS: FEBUXOSTAT 40 MG TABLET (ULORIC) PO (09:10)
[2018-03-01] MEDS: TAMSULOSIN 0.4 MG CAP PO (09:10)
[2018-03-01] MEDS: CYANOCOBALAMIN 500 MCG TAB PO ×3 (09:10→18:01)
[2018-03-01] MEDS: BACTRIM 160MG/800MG DS TAB PO (09:10)
[2018-03-01 10:23] LABS: CK-MB VALUE MASS 1.2 NG/ML (<3.6); CPK CREATINE PHOSPHOKINASE 15 U/L (39-308); TROPONIN I 0.03 NG/ML (< 0.10)
[2018-03-01 11:42] LABS: APPEARANCE, URINE CLEAR (CLEAR); BACTERIA, URINE AUTO 1+ (NEGATIVE); BILIRUBIN, URINE AUTO NEGATIVE (NEGATIVE); BLOOD, URINE BLOOD 1+ (NEGATIVE); COLOR, URINE YELLOW (YELLOW); GLUCOSE, URINE (UA) AUTO NEGATIVE (NEGATIVE); KETONE, URINE AUTO NEGATIVE (NEGATIVE); LEUKOCYTE ESTERASE, URINE AUTO NEGATIVE (NEGATIVE); MUCUS, URINE SMALL (NEGATIVE); NITRITE, URINE AUTO NEGATIVE (NEGATIVE); PROTEIN, URINE AUTO 1+ mg/dL (NEGATIVE); RBC, URINE AUTO 5 /HPF (0-3); SPECIFIC GRAVITY URINE AUTO 1.006 (1.002-1.035); SQUAMOUS EPITHELIAL CELL UR AU 0 /HPF (0-6); UROBILINOGEN, URINE AUTO 0.2 mg/dL (0.0-2.0); WBC, URINE AUTO 3 /HPF (0-3)
[2018-03-01] MEDS: CHLOROTHIAZIDE 500 MG VIAL (J1205) IV (12:44)
[2018-03-01 13:00] LABS: TOTAL PROTEIN,RANDOM URINE 38.9 MG/DL (0.0-12.0)
[2018-03-01 13:15] LABS: INR 4.38
[2018-03-01] MEDS: WARFARIN SOD 2 MG TAB PO (16:24)
[2018-03-01] MEDS: MORPHINE 4 MG/ML 1ML VIAL/SYRINGE (J2270) IV ×2 (16:24→20:12)
[2018-03-02] MEDS: ANEXSIA, NORCO 7.5MG/325MG TABLET(HYDROCODONE/APAP) PO ×6 (01:50→21:54)
[2018-03-02] MEDS: FUROSEMIDE 100 MG/10 ML VIAL (J1940) IV ×4 (03:37→20:39)
[2018-03-02 05:24] LABS: BASO % 0.2 % (0.0-1.0); HEMATOCRIT 27.4 % (42.0-52.0); HEMOGLOBIN 8.8 g/dl (13.5-17.5); IMMATURE GRANULOCYTE % 1.6 % (0-3.0); LYMPH % 4.4 % (24.0-44.0); MEAN CORPUSCULAR HEMOGLOBIN 30.8 pg (27.0-33.0); MEAN CORPUSCULAR HGB CONC 32.1 g/dl (32.0-36.5); MEAN CORPUSCULAR VOLUME 95.8 fl (80.0-96.0); MONO # 0.2 10^3/uL (0.0-0.8); MONO % 4.8 % (0.0-5.0); NEUTROPHILS # 4.4 10^3/uL (1.8-7.7); PLATELET COUNT, AUTOMATED 229 10^3/uL (150-450); RED BLOOD COUNT 2.86 10^6/uL (4.30-6.10); RED CELL DISTRIBUTION WIDTH 24.2 % (11.5-14.5)
[2018-03-02 05:38] LABS: INR 4.54; PROTHROMBIN TIME 44.2 SECONDS (12.1-14.4)
[2018-03-02 05:43] LABS: ALBUMIN 2.4 GM/DL (3.2-5.2); ANION GAP 7 MEQ/L (8-16); BLOOD UREA NITROGEN 48 MG/DL (7-18); CALCIUM LEVEL 8.2 MG/DL (8.8-10.2); CARBON DIOXIDE LEVEL 34 MEQ/L (21-32); CHLORIDE LEVEL 98 MEQ/L (98-107); CREATININE FOR GFR 1.51 MG/DL (0.70-1.30); GLOMERULAR FILTRATION RATE 48.6 (>42); GLUCOSE, FASTING 96 MG/DL (70-100); PHOSPHORUS LEVEL 4.2 MG/DL (2.5-4.9); POTASSIUM SERUM 3.5 MEQ/L (3.5-5.1); SODIUM LEVEL 139 MEQ/L (136-145)
[2018-03-02 05:45] LABS: LYMPH # 0.2 10^3/uL (1.5-4.5); POSITIVE DIFF POS FLAG
[2018-03-02] MEDS: predniSONE 50 MG TAB PO (08:03)
[2018-03-02] MEDS: FEBUXOSTAT 40 MG TABLET (ULORIC) PO (08:03)
[2018-03-02] MEDS: FLUoxetine 20 MG CAP PO (08:04)
[2018-03-02] MEDS: CYANOCOBALAMIN 500 MCG TAB PO ×3 (08:04→17:14)
[2018-03-02] MEDS: OMEPRAZOLE 20 MG CAP PO ×2 (08:04→20:39)
[2018-03-02] MEDS: TAMSULOSIN 0.4 MG CAP PO (08:04)
[2018-03-02] MEDS: ATORVASTATIN 20 MG TAB PO (08:04)
[2018-03-02] MEDS: MULTIVITAMINS/MINERALS THERAP 1 TAB PO ×2 (08:04→20:39)
[2018-03-02] MEDS: CYCLOPHOSPHAMIDE 25 MG PO ×2 (09:33→20:39)
[2018-03-02] MEDS: metOLazone 5 MG TAB PO (12:49)
[2018-03-02] MEDS: MORPHINE 4 MG/ML 1ML VIAL/SYRINGE (J2270) IV ×2 (12:50→20:40)
[2018-03-02] MEDS: ONDANSETRON 4MG/2ML VIAL (J2405) IV (13:00)
[2018-03-03] MEDS: ANEXSIA, NORCO 7.5MG/325MG TABLET(HYDROCODONE/APAP) PO ×6 (01:51→23:58)
[2018-03-03] MEDS: FUROSEMIDE 100 MG/10 ML VIAL (J1940) IV ×4 (04:18→22:32)
[2018-03-03 04:55] LABS: BASO % 0.2 % (0.0-1.0); HEMATOCRIT 25.1 % (42.0-52.0); IMMATURE GRANULOCYTE % 0.9 % (0-3.0); LYMPH % 4.8 % (24.0-44.0); MEAN CORPUSCULAR HGB CONC 31.9 g/dl (32.0-36.5); MEAN CORPUSCULAR VOLUME 97.3 fl (80.0-96.0); MONO # 0.4 10^3/uL (0.0-0.8); MONO % 8.5 % (0.0-5.0); NEUTROPHILS # 3.7 10^3/uL (1.8-7.7); NEUTROPHILS % 85.6 % (36.0-66.0); PLATELET COUNT, AUTOMATED 217 10^3/uL (150-450); RED BLOOD COUNT 2.58 10^6/uL (4.30-6.10); WHITE BLOOD COUNT 4.3 10^3/uL (4.0-10.0)
[2018-03-03 05:20] LABS: ALBUMIN 2.3 GM/DL (3.2-5.2); ANION GAP 6 MEQ/L (8-16); BLOOD UREA NITROGEN 49 MG/DL (7-18); CALCIUM LEVEL 7.9 MG/DL (8.8-10.2); CARBON DIOXIDE LEVEL 36 MEQ/L (21-32); CHLORIDE LEVEL 96 MEQ/L (98-107); CREATININE FOR GFR 1.59 MG/DL (0.70-1.30); GLOMERULAR FILTRATION RATE 45.8 (>42); GLUCOSE, FASTING 98 MG/DL (70-100); PHOSPHORUS LEVEL 4.9 MG/DL (2.5-4.9); POTASSIUM SERUM 3.3 MEQ/L (3.5-5.1); SODIUM LEVEL 138 MEQ/L (136-145)
[2018-03-03 05:27] LABS: LYMPH # 0.2 10^3/uL (1.5-4.5)
[2018-03-03 05:28] LABS: POSITIVE DIFF POS FLAG
[2018-03-03] MEDS: POTASSIUM CHLORIDE 10 MEQ SR TABLET PO (09:25)
[2018-03-03] MEDS: FEBUXOSTAT 40 MG TABLET (ULORIC) PO (09:25)
[2018-03-03] MEDS: ATORVASTATIN 20 MG TAB PO (09:25)
[2018-03-03] MEDS: TAMSULOSIN 0.4 MG CAP PO (09:25)
[2018-03-03] MEDS: OMEPRAZOLE 20 MG CAP PO ×2 (09:25→19:48)
[2018-03-03] MEDS: MULTIVITAMINS/MINERALS THERAP 1 TAB PO ×2 (09:25→19:48)
[2018-03-03] MEDS: predniSONE 50 MG TAB PO (09:25)
[2018-03-03] MEDS: FLUoxetine 20 MG CAP PO (09:25)
[2018-03-03] MEDS: CYANOCOBALAMIN 500 MCG TAB PO ×3 (09:26→19:48)
[2018-03-03] MEDS: BACTRIM 160MG/800MG DS TAB PO (09:26)
[2018-03-03] MEDS: CYCLOPHOSPHAMIDE 25 MG PO ×2 (09:27→19:47)
[2018-03-03] MEDS: ONDANSETRON 4MG/2ML VIAL (J2405) IV (11:59)
[2018-03-03] MEDS: metOLazone 5 MG TAB PO (11:59)
[2018-03-03] MEDS: zolPIDEM TARTRATE 5 MG TAB PO (22:32)
[2018-03-04] MEDS: ANEXSIA, NORCO 7.5MG/325MG TABLET(HYDROCODONE/APAP) PO ×4 (04:50→20:39)
[2018-03-04] MEDS: ONDANSETRON 4MG/2ML VIAL (J2405) IV ×2 (04:50→17:08)
[2018-03-04] MEDS: FUROSEMIDE 100 MG/10 ML VIAL (J1940) IV ×4 (04:51→22:12)
[2018-03-04 06:00] LABS: BASO % 0.4 % (0.0-1.0); HEMATOCRIT 26.1 % (42.0-52.0); HEMOGLOBIN 8.6 g/dl (13.5-17.5); LYMPH # 0.3 10^3/uL (1.5-4.5); LYMPH % 5.9 % (24.0-44.0); MEAN CORPUSCULAR VOLUME 94.2 fl (80.0-96.0); MONO # 0.5 10^3/uL (0.0-0.8); NEUTROPHILS # 4.3 10^3/uL (1.8-7.7); NEUTROPHILS % 83.7 % (36.0-66.0); PLATELET COUNT, AUTOMATED 286 10^3/uL (150-450); RED BLOOD COUNT 2.77 10^6/uL (4.30-6.10); RED CELL DISTRIBUTION WIDTH 23.7 % (11.5-14.5); WHITE BLOOD COUNT 5.1 10^3/uL (4.0-10.0)
[2018-03-04 06:31] LABS: INR 2.21
[2018-03-04 06:55] LABS: ALBUMIN 2.6 GM/DL (3.2-5.2); ANION GAP 7 MEQ/L (8-16); BLOOD UREA NITROGEN 51 MG/DL (7-18); CALCIUM LEVEL 8.2 MG/DL (8.8-10.2); CARBON DIOXIDE LEVEL 36 MEQ/L (21-32); CHLORIDE LEVEL 94 MEQ/L (98-107); CREATININE FOR GFR 1.59 MG/DL (0.70-1.30); GLOMERULAR FILTRATION RATE 45.8 (>42); GLUCOSE, FASTING 85 MG/DL (70-100); PHOSPHORUS LEVEL 3.3 MG/DL (2.5-4.9); SODIUM LEVEL 137 MEQ/L (136-145)
[2018-03-04] MEDS: OMEPRAZOLE 20 MG CAP PO ×2 (08:04→20:32)
[2018-03-04] MEDS: predniSONE 50 MG TAB PO (08:05)
[2018-03-04] MEDS: CYANOCOBALAMIN 500 MCG TAB PO ×3 (08:05→17:08)
[2018-03-04] MEDS: FEBUXOSTAT 40 MG TABLET (ULORIC) PO (08:05)
[2018-03-04] MEDS: FLUoxetine 20 MG CAP PO (08:05)
[2018-03-04] MEDS: MULTIVITAMINS/MINERALS THERAP 1 TAB PO ×2 (08:06→20:32)
[2018-03-04] MEDS: ATORVASTATIN 20 MG TAB PO (08:06)
[2018-03-04] MEDS: POTASSIUM CHLORIDE 10 MEQ SR TABLET PO ×4 (08:06→20:31)
[2018-03-04] MEDS: TAMSULOSIN 0.4 MG CAP PO (08:06)
[2018-03-04] MEDS: CYCLOPHOSPHAMIDE 25 MG PO ×2 (08:07→20:31)
[2018-03-04] MEDS ORDERED: MAALOX 30 ML SUSP *UDC PO (10:30)
[2018-03-04] MEDS: MAALOX 30 ML SUSP *UDC PO (10:34)
[2018-03-04] MEDS: SENNA 8.6 MG TAB (SENOKOT) PO ×2 (11:41→20:32)
[2018-03-04 16:52] LABS: ANION GAP 7 MEQ/L (8-16); BLOOD UREA NITROGEN 57 MG/DL (7-18); CALCIUM LEVEL 8.4 MG/DL (8.8-10.2); CARBON DIOXIDE LEVEL 36 MEQ/L (21-32); CHLORIDE LEVEL 97 MEQ/L (98-107); CREATININE FOR GFR 1.69 MG/DL (0.70-1.30); GLOMERULAR FILTRATION RATE 42.7 (>42); GLUCOSE, FASTING 149 MG/DL (70-100); MAGNESIUM LEVEL 2.3 MG/DL (1.8-2.4); POTASSIUM SERUM 4.4 MEQ/L (3.5-5.1); SODIUM LEVEL 140 MEQ/L (136-145)
[2018-03-04] MEDS: WARFARIN SOD 4 MG TAB PO (17:08)
[2018-03-04] MEDS ORDERED: POTASSIUM CHLORIDE 10 MEQ SR TABLET PO (21:00)
[2018-03-04] MEDS: zolPIDEM TARTRATE 5 MG TAB PO (22:12)
[2018-03-05] MEDS: FUROSEMIDE 100 MG/10 ML VIAL (J1940) IV ×4 (04:20→21:03)
[2018-03-05] MEDS: ANEXSIA, NORCO 7.5MG/325MG TABLET(HYDROCODONE/APAP) PO ×3 (06:21→21:07)
[2018-03-05 06:24] LABS: BASO % 0.4 % (0.0-1.0); HEMATOCRIT 27.3 % (42.0-52.0); IMMATURE GRANULOCYTE % 1.2 % (0-3.0); LYMPH # 0.3 10^3/uL (1.5-4.5); MEAN CORPUSCULAR HEMOGLOBIN 31.4 pg (27.0-33.0); MEAN CORPUSCULAR VOLUME 95.1 fl (80.0-96.0); MONO # 0.6 10^3/uL (0.0-0.8); MONO % 12.2 % (0.0-5.0); NEUTROPHILS # 4.1 10^3/uL (1.8-7.7); NEUTROPHILS % 81.2 % (36.0-66.0); PLATELET COUNT, AUTOMATED 317 10^3/uL (150-450); RED BLOOD COUNT 2.87 10^6/uL (4.30-6.10); RED CELL DISTRIBUTION WIDTH 23.9 % (11.5-14.5)
[2018-03-05 06:27] LABS: POSITIVE DIFF POS FLAG
[2018-03-05 06:44] LABS: ALBUMIN 2.7 GM/DL (3.2-5.2); ANION GAP 4 MEQ/L (8-16); BLOOD UREA NITROGEN 52 MG/DL (7-18); CALCIUM LEVEL 8.5 MG/DL (8.8-10.2); CARBON DIOXIDE LEVEL 40 MEQ/L (21-32); CHLORIDE LEVEL 96 MEQ/L (98-107); CREATININE FOR GFR 1.41 MG/DL (0.70-1.30); GLOMERULAR FILTRATION RATE 52.6 (>42); GLUCOSE, FASTING 79 MG/DL (70-100); PHOSPHORUS LEVEL 2.4 MG/DL (2.5-4.9); POTASSIUM SERUM 3.4 MEQ/L (3.5-5.1); SODIUM LEVEL 140 MEQ/L (136-145)
[2018-03-05] MEDS: POTASSIUM CHLORIDE 10 MEQ SR TABLET PO (08:35)
[2018-03-05] MEDS: FLUoxetine 20 MG CAP PO (08:35)
[2018-03-05] MEDS: FEBUXOSTAT 40 MG TABLET (ULORIC) PO (08:35)
[2018-03-05] MEDS: CYCLOPHOSPHAMIDE 25 MG PO ×2 (08:36→21:05)
[2018-03-05] MEDS: OMEPRAZOLE 20 MG CAP PO ×2 (08:36→21:04)
[2018-03-05] MEDS: ATORVASTATIN 20 MG TAB PO (08:36)
[2018-03-05] MEDS: MULTIVITAMINS/MINERALS THERAP 1 TAB PO ×2 (08:36→21:05)
[2018-03-05] MEDS: SENNA 8.6 MG TAB (SENOKOT) PO ×2 (08:37→21:05)
[2018-03-05] MEDS: predniSONE 50 MG TAB PO (08:42)
[2018-03-05] MEDS: BACTRIM 160MG/800MG DS TAB PO (08:42)
[2018-03-05] MEDS: TAMSULOSIN 0.4 MG CAP PO (08:43)
[2018-03-05] MEDS: ONDANSETRON 4MG/2ML VIAL (J2405) IV ×2 (08:43→15:50)
[2018-03-05] MEDS: CYANOCOBALAMIN 500 MCG TAB PO ×3 (08:43→17:21)
[2018-03-05] MEDS: NEUTRA-PHOS 1.25 GM PACKET PO ×2 (09:44→21:04)
[2018-03-05] MEDS: diphenhydrAMINE INJ 50MG/ML VIAL (J1200) IV (13:31)
[2018-03-05] MEDS: BISACODYL 5 MG TAB PO (17:21)
[2018-03-05] MEDS: SUCRALFATE 1 GM TAB PO ×2 (17:21→21:05)
[2018-03-05] MEDS: LORazepam 2 MG/ML VIAL (J2060) IV (17:21)
[2018-03-05] MEDS: WARFARIN SOD 2 MG TAB PO (17:22)
[2018-03-05] MEDS: KCL 10MEQ/100ML SWI (KRUN) 10 MEQ in APPROPRIATE DILUENT 1 EA IV ×2 (21:04→23:17)
[2018-03-06] MEDS: zolPIDEM TARTRATE 5 MG TAB PO (01:05)
[2018-03-06] MEDS: ANEXSIA, NORCO 7.5MG/325MG TABLET(HYDROCODONE/APAP) PO ×4 (03:21→22:41)
[2018-03-06] MEDS: FUROSEMIDE 100 MG/10 ML VIAL (J1940) IV ×2 (03:23→10:13)
[2018-03-06 06:19] LABS: BASO % 0.2 % (0.0-1.0); HEMOGLOBIN 8.4 g/dl (13.5-17.5); IMMATURE GRANULOCYTE % 0.6 % (0-3.0); LYMPH % 3.2 % (24.0-44.0); MEAN CORPUSCULAR HEMOGLOBIN 31.6 pg (27.0-33.0); MEAN CORPUSCULAR HGB CONC 32.3 g/dl (32.0-36.5); MEAN CORPUSCULAR VOLUME 97.7 fl (80.0-96.0); MONO # 0.6 10^3/uL (0.0-0.8); MONO % 11.4 % (0.0-5.0); NEUTROPHILS # 4.5 10^3/uL (1.8-7.7); NEUTROPHILS % 84.6 % (36.0-66.0); PLATELET COUNT, AUTOMATED 296 10^3/uL (150-450); RED BLOOD COUNT 2.66 10^6/uL (4.30-6.10); RED CELL DISTRIBUTION WIDTH 23.9 % (11.5-14.5); WHITE BLOOD COUNT 5.3 10^3/uL (4.0-10.0)
[2018-03-06 06:38] LABS: ALBUMIN 2.4 GM/DL (3.2-5.2); ANION GAP 5 MEQ/L (8-16); BLOOD UREA NITROGEN 51 MG/DL (7-18); CARBON DIOXIDE LEVEL 39 MEQ/L (21-32); CHLORIDE LEVEL 96 MEQ/L (98-107); CREATININE FOR GFR 1.65 MG/DL (0.70-1.30); GLOMERULAR FILTRATION RATE 43.9 (>42); GLUCOSE, FASTING 90 MG/DL (70-100); PHOSPHORUS LEVEL 3.1 MG/DL (2.5-4.9); SODIUM LEVEL 140 MEQ/L (136-145)
[2018-03-06 06:46] LABS: INR 1.84; PROTHROMBIN TIME 21.6 SECONDS (12.1-14.4)
[2018-03-06 07:01] LABS: LYMPH # 0.2 10^3/uL (1.5-4.5); POSITIVE DIFF POS FLAG
[2018-03-06] MEDS: SUCRALFATE 1 GM TAB PO ×4 (08:29→21:28)
[2018-03-06] MEDS: TAMSULOSIN 0.4 MG CAP PO (08:29)
[2018-03-06] MEDS: SPIRONOLACTONE 25 MG TAB PO (08:29)
[2018-03-06] MEDS: predniSONE 50 MG TAB PO (08:29)
[2018-03-06] MEDS: NEUTRA-PHOS 1.25 GM PACKET PO ×2 (08:29→21:00)
[2018-03-06] MEDS: MULTIVITAMINS/MINERALS THERAP 1 TAB PO ×2 (08:30→21:28)
[2018-03-06] MEDS: FEBUXOSTAT 40 MG TABLET (ULORIC) PO (08:30)
[2018-03-06] MEDS: OMEPRAZOLE 20 MG CAP PO ×2 (08:30→21:28)
[2018-03-06] MEDS: SENNA 8.6 MG TAB (SENOKOT) PO ×2 (08:30→21:28)
[2018-03-06] MEDS: ATORVASTATIN 20 MG TAB PO (08:30)
[2018-03-06] MEDS: CYANOCOBALAMIN 500 MCG TAB PO ×3 (08:31→17:21)
[2018-03-06] MEDS: FLUoxetine 20 MG CAP PO (08:31)
[2018-03-06] MEDS: POTASSIUM CHLORIDE 10 MEQ SR TABLET PO ×2 (08:31→21:27)
[2018-03-06] MEDS: CYCLOPHOSPHAMIDE 25 MG PO ×2 (08:31→21:28)
[2018-03-06] MEDS: LORazepam 2 MG/ML VIAL (J2060) IV (10:29)
[2018-03-06] MEDS: diphenhydrAMINE 12.5MG/5ML ELIXIR UDC PO (14:39)
[2018-03-06] MEDS: HALOPERIDOL 5 MG/ML VIAL (J1630) IV (14:39)
[2018-03-06] MEDS: WARFARIN SOD 4 MG TAB PO (17:21)
[2018-03-06] MEDS: SPIRONOLACTONE 50 MG TAB PO (17:21)
[2018-03-06] MEDS: TORSEMIDE 100 MG TAB PO (17:21)
[2018-03-06] MEDS: traZODone 100 MG TAB PO (21:28)
[2018-03-07 06:11] LABS: BASO % 0.2 % (0.0-1.0); HEMATOCRIT 25.6 % (42.0-52.0); HEMOGLOBIN 8.2 g/dl (13.5-17.5); IMMATURE GRANULOCYTE % 0.9 % (0-3.0); MEAN CORPUSCULAR HEMOGLOBIN 31.4 pg (27.0-33.0); MEAN CORPUSCULAR VOLUME 98.1 fl (80.0-96.0); MONO # 0.5 10^3/uL (0.0-0.8); MONO % 9.3 % (0.0-5.0); NEUTROPHILS # 4.5 10^3/uL (1.8-7.7); NEUTROPHILS % 85.6 % (36.0-66.0); PLATELET COUNT, AUTOMATED 287 10^3/uL (150-450); RED BLOOD COUNT 2.61 10^6/uL (4.30-6.10); RED CELL DISTRIBUTION WIDTH 23.8 % (11.5-14.5); WHITE BLOOD COUNT 5.3 10^3/uL (4.0-10.0)
[2018-03-07 06:29] LABS: ALBUMIN 2.4 GM/DL (3.2-5.2); ANION GAP 6 MEQ/L (8-16); BLOOD UREA NITROGEN 52 MG/DL (7-18); CALCIUM LEVEL 8.3 MG/DL (8.8-10.2); CARBON DIOXIDE LEVEL 38 MEQ/L (21-32); CHLORIDE LEVEL 98 MEQ/L (98-107); CREATININE FOR GFR 1.51 MG/DL (0.70-1.30); GLOMERULAR FILTRATION RATE 48.6 (>42); GLUCOSE, FASTING 86 MG/DL (70-100); PHOSPHORUS LEVEL 3.4 MG/DL (2.5-4.9); POTASSIUM SERUM 3.4 MEQ/L (3.5-5.1); SODIUM LEVEL 142 MEQ/L (136-145)
[2018-03-07 06:37] LABS: LYMPH # 0.2 10^3/uL (1.5-4.5)
[2018-03-07 06:38] LABS: POSITIVE DIFF POS FLAG
[2018-03-07] MEDS: CYCLOPHOSPHAMIDE 25 MG PO ×2 (08:59→22:28)
[2018-03-07] MEDS: TORSEMIDE 100 MG TAB PO ×2 (08:59→17:00)
[2018-03-07] MEDS: FLUoxetine 20 MG CAP PO (08:59)
[2018-03-07] MEDS: SENNA 8.6 MG TAB (SENOKOT) PO ×2 (09:00→22:25)
[2018-03-07] MEDS: CYANOCOBALAMIN 500 MCG TAB PO ×3 (09:00→17:00)
[2018-03-07] MEDS: FEBUXOSTAT 40 MG TABLET (ULORIC) PO (09:00)
[2018-03-07] MEDS: OMEPRAZOLE 20 MG CAP PO ×2 (09:00→22:25)
[2018-03-07] MEDS: HALOPERIDOL 1 MG TAB PO ×2 (09:00→22:24)
[2018-03-07] MEDS: NEUTRA-PHOS 1.25 GM PACKET PO ×2 (09:00→22:22)
[2018-03-07] MEDS: POTASSIUM CHLORIDE 10 MEQ SR TABLET PO ×2 (09:00→22:24)
[2018-03-07] MEDS: ATORVASTATIN 20 MG TAB PO (09:02)
[2018-03-07] MEDS: MULTIVITAMINS/MINERALS THERAP 1 TAB PO ×2 (09:02→22:27)
[2018-03-07] MEDS: predniSONE 50 MG TAB PO (09:02)
[2018-03-07] MEDS: SPIRONOLACTONE 50 MG TAB PO ×2 (09:03→17:00)
[2018-03-07] MEDS: SUCRALFATE 1 GM TAB PO ×4 (09:03→22:25)
[2018-03-07] MEDS: TAMSULOSIN 0.4 MG CAP PO (09:03)
[2018-03-07] MEDS: ANEXSIA, NORCO 7.5MG/325MG TABLET(HYDROCODONE/APAP) PO ×3 (09:20→22:27)
[2018-03-07] MEDS: LORazepam 2 MG/ML VIAL (J2060) IV (12:49)
[2018-03-07] MEDS: WARFARIN SOD 4 MG TAB PO (17:00)
[2018-03-07 17:17] LABS: IMMEDIATE SPIN CROSSMATCH 1 2
[2018-03-07 21:35] LABS: APPEARANCE, URINE CLEAR (CLEAR); BACTERIA, URINE AUTO NEGATIVE (NEGATIVE); BILIRUBIN, URINE AUTO NEGATIVE (NEGATIVE); BLOOD, URINE BLOOD 3+ (NEGATIVE); COLOR, URINE YELLOW (YELLOW); GLUCOSE, URINE (UA) AUTO NEGATIVE (NEGATIVE); KETONE, URINE AUTO NEGATIVE (NEGATIVE); LEUKOCYTE ESTERASE, URINE AUTO 2+ (NEGATIVE); NITRITE, URINE AUTO NEGATIVE (NEGATIVE); PROTEIN, URINE AUTO 2+ mg/dL (NEGATIVE); RBC, URINE AUTO TNTC /HPF (0-3); SPECIFIC GRAVITY URINE AUTO 1.009 (1.002-1.035); SQUAMOUS EPITHELIAL CELL UR AU 0 /HPF (0-6); UROBILINOGEN, URINE AUTO 0.2 mg/dL (0.0-2.0); WBC, URINE AUTO 49 /HPF (0-3)
[2018-03-07 21:47] LABS: TOTAL PROTEIN,RANDOM URINE 96.8 MG/DL (0.0-12.0)
[2018-03-07] MEDS: traZODone 100 MG TAB PO (22:23)
[2018-03-07] MEDS: zolPIDEM TARTRATE 5 MG TAB PO (22:27)
[2018-03-07] MEDS: ONDANSETRON 4MG/2ML VIAL (J2405) IV (23:19)
[2018-03-08 05:54] LABS: BASO % 0.4 % (0.0-1.0); HEMATOCRIT 28.5 % (42.0-52.0); HEMOGLOBIN 9.5 g/dl (13.5-17.5); IMMATURE GRANULOCYTE % 1.1 % (0-3.0); LYMPH % 3.4 % (24.0-44.0); MEAN CORPUSCULAR HGB CONC 33.3 g/dl (32.0-36.5); MEAN CORPUSCULAR VOLUME 93.1 fl (80.0-96.0); MONO # 0.4 10^3/uL (0.0-0.8); MONO % 7.9 % (0.0-5.0); NEUTROPHILS # 4.9 10^3/uL (1.8-7.7); NEUTROPHILS % 87.2 % (36.0-66.0); PLATELET COUNT, AUTOMATED 275 10^3/uL (150-450); RED BLOOD COUNT 3.06 10^6/uL (4.30-6.10); RED CELL DISTRIBUTION WIDTH 23.8 % (11.5-14.5); WHITE BLOOD COUNT 5.6 10^3/uL (4.0-10.0)
[2018-03-08 05:55] LABS: LYMPH # 0.2 10^3/uL (1.5-4.5); POSITIVE DIFF POS FLAG
[2018-03-08 06:29] LABS: ANION GAP 8 MEQ/L (8-16); BLOOD UREA NITROGEN 52 MG/DL (7-18); CALCIUM LEVEL 8.2 MG/DL (8.8-10.2); CARBON DIOXIDE LEVEL 37 MEQ/L (21-32); CHLORIDE LEVEL 98 MEQ/L (98-107); CREATININE FOR GFR 1.39 MG/DL (0.70-1.30); GLOMERULAR FILTRATION RATE 53.5 (>42); GLUCOSE, FASTING 84 MG/DL (70-100); SODIUM LEVEL 143 MEQ/L (136-145)
[2018-03-08] MEDS: FEBUXOSTAT 40 MG TABLET (ULORIC) PO (07:52)
[2018-03-08] MEDS: CYCLOPHOSPHAMIDE 25 MG PO (07:52)
[2018-03-08] MEDS: HALOPERIDOL 1 MG TAB PO (07:53)
[2018-03-08] MEDS: SPIRONOLACTONE 50 MG TAB PO (07:53)
[2018-03-08] MEDS: SUCRALFATE 1 GM TAB PO ×2 (07:53→12:06)
[2018-03-08] MEDS: TAMSULOSIN 0.4 MG CAP PO (07:53)
[2018-03-08] MEDS: predniSONE 20 MG TAB PO (07:53)
[2018-03-08] MEDS: FLUoxetine 20 MG CAP PO (07:53)
[2018-03-08] MEDS: BACTRIM 160MG/800MG DS TAB PO (07:53)
[2018-03-08] MEDS: ATORVASTATIN 20 MG TAB PO (07:53)
[2018-03-08] MEDS: MULTIVITAMINS/MINERALS THERAP 1 TAB PO (07:54)
[2018-03-08] MEDS: SENNA 8.6 MG TAB (SENOKOT) PO (07:54)
[2018-03-08] MEDS: TORSEMIDE 100 MG TAB PO (07:55)
[2018-03-08] MEDS: NEUTRA-PHOS 1.25 GM PACKET PO (07:55)
[2018-03-08] MEDS: CYANOCOBALAMIN 500 MCG TAB PO ×2 (07:55→12:06)
[2018-03-08] MEDS: OMEPRAZOLE 20 MG CAP PO (07:55)
[2018-03-08] MEDS: POTASSIUM CHLORIDE 10 MEQ SR TABLET PO ×2 (07:55→13:11)
[2018-03-08] MEDS: ANEXSIA, NORCO 7.5MG/325MG TABLET(HYDROCODONE/APAP) PO ×2 (08:03→13:19)
[2018-03-08] MEDS ORDERED: WARFARIN SOD 3 MG TAB PO (17:00)
[2018-03-10 14:17] LABS: PR3 ANTIPROTEINASE ANTIBODIES <3.5 U/mL (0.0-3.5)
[2018-03-10 14:17] LABS: MYELOPEROXIDASE ANTIBODY <9.0 U/mL (0.0-9.0)
== END 2018-03-08 14:56 | disposition home or self-care (01) | DRG 291 ==
LOC: M PCU 03-03 21:33 → M MSPAV 03-04 22:46 → M ED 09:51 → M ED INP 11:03 → M ICU 12:45
PROC: 30233N1 Transfusion of Nonautologous Red Blood Cells into Peripheral Vein, Percutaneous Approach (ICD-10-PCS; principal; 2018-03-07)
DX: I13.0 Hypertensive heart and chronic kidney disease with heart failure and stage 1 through stage 4 chronic kidney disease, or unspecified chronic kidney disease (principal); J96.01 Acute respiratory failure with hypoxia; I50.43 Acute on chronic combined systolic (congestive) and diastolic (congestive) heart failure; J81.0 Acute pulmonary edema; R04.2 Hemoptysis; N04.9 Nephrotic syndrome with unspecified morphologic changes; E87.2 Acidosis; M32.14 Glomerular disease in systemic lupus erythematosus; M32.13 Lung involvement in systemic lupus erythematosus; N18.3 Chronic kidney disease, stage 3 (moderate); I48.91 Unspecified atrial fibrillation; G47.00 Insomnia, unspecified; E78.5 Hyperlipidemia, unspecified; M10.9 Gout, unspecified; Z79.01 Long term (current) use of anticoagulants; Z86.711 Personal history of pulmonary embolism; E66.01 Morbid (severe) obesity due to excess calories; Z88.8 Allergy status to other drugs, medicaments and biological substances; Z79.899 Other long term (current) drug therapy; Z79.52 Long term (current) use of systemic steroids; D63.1 Anemia in chronic kidney disease; E87.6 Hypokalemia; I25.10 Atherosclerotic heart disease of native coronary artery without angina pectoris; Z95.2 Presence of prosthetic heart valve; I27.20 Pulmonary hypertension, unspecified; F32.9 Major depressive disorder, single episode, unspecified

== ENCOUNTER → 2018-03-18 | Outpatient (REF) | payer OTHER ==
[2018-03-18 14:04] LABS: INR 3.92; PROTHROMBIN TIME 39.3 SECONDS (12.1-14.4)
[2018-03-18 14:11] LABS: FERRITIN 396 NG/ML (26-388); IRON (FE) 112 UG/DL (65-175); TOTAL IRON BINDING CAPACITY 280 UG/DL (250-450)
== END ==
LOC: M LAB REF 13:14
DX: I48.2 Chronic atrial fibrillation (principal); D50.9 Iron deficiency anemia, unspecified

== ENCOUNTER 2018-03-21 05:35 | Inpatient (IN) | payer OTHER ==
[2018-03-21 06:02] LABS: ABG BASE EXCESS 7.8 (-2.0-2.0); ABG HCO3 34.2 MEQ/L (22.0-26.0); ABG O2 SATURATION 92.6 % (95.0-99.0); ABG PARTIAL PRESSURE O2 69.6 mmHg (75.0-100.0); ABG STANDARD HCO3 31.5 MEQ/L (22.0-26.0); ABG pH (ARTERIAL) 7.371 UNITS (7.350-7.450)
[2018-03-21 06:05] LABS: ABG PARTIAL PRESSURE CO2 60.3 mmHg (35.0-45.0)
[2018-03-21] MEDS: PIPERACILLIN/TAZOBACTAM SOD 3.375 GM in D5W MINI-BAG PLUS 50 ML IV ×3 (06:20→21:56)
[2018-03-21] MEDS: ACETAMINOPHEN TAB 650MG DOSE (2X325MG) PO (06:20)
[2018-03-21 06:23] LABS: BASO % 0.4 % (0.0-1.0); HEMATOCRIT 24.3 % (42.0-52.0); HEMOGLOBIN 7.6 g/dl (13.5-17.5); IMMATURE GRANULOCYTE % 2.7 % (0-3.0); MEAN CORPUSCULAR HEMOGLOBIN 32.2 pg (27.0-33.0); MEAN CORPUSCULAR HGB CONC 31.3 g/dl (32.0-36.5); MONO # 0.3 10^3/uL (0.0-0.8); MONO % 10.5 % (0.0-5.0); NEUTROPHILS # 2.2 10^3/uL (1.8-7.7); NEUTROPHILS % 84.4 % (36.0-66.0); PLATELET COUNT, AUTOMATED 178 10^3/uL (150-450); RED BLOOD COUNT 2.36 10^6/uL (4.30-6.10); RED CELL DISTRIBUTION WIDTH 24.8 % (11.5-14.5); WHITE BLOOD COUNT 2.6 10^3/uL (4.0-10.0)
[2018-03-21 06:41] LABS: INR 3.61; PARTIAL THROMBOPLASTIN TIME 38.7 SECONDS (25.4-37.6); PROTHROMBIN TIME 36.8 SECONDS (12.1-14.4)
[2018-03-21 06:47] LABS: LACTIC ACID SEPSIS PROTOCOL 1.8 MMOL/L (0.4-2.0)
[2018-03-21 06:49] LABS: ANION GAP 8 MEQ/L (8-16); BLOOD UREA NITROGEN 71 MG/DL (7-18); CARBON DIOXIDE LEVEL 33 MEQ/L (21-32); CHLORIDE LEVEL 104 MEQ/L (98-107); CPK CREATINE PHOSPHOKINASE 28 U/L (39-308); CREATININE FOR GFR 1.68 MG/DL (0.70-1.30); GLUCOSE, FASTING 149 MG/DL (70-100); MB/CK RELATIVE INDEX 7.14 (< OR =4); NT-PRO BNP 7476 PG/ML (<125); POTASSIUM SERUM 4.3 MEQ/L (3.5-5.1); SODIUM LEVEL 145 MEQ/L (136-145); TROPONIN I 0.06 NG/ML (< 0.10)
[2018-03-21 06:57] LABS: LYMPH # 0.1 10^3/uL (1.5-4.5); POSITIVE DIFF POS FLAG
[2018-03-21] MEDS ORDERED: ONDANSETRON 4MG/2ML VIAL (J2405) IV (07:00)
[2018-03-21] MEDS ORDERED: FAMOTIDINE 20 MG TAB PO (07:00)
[2018-03-21] MEDS ORDERED: ACETAMINOPHEN TAB 650MG DOSE (2X325MG) PO (07:00)
[2018-03-21] MEDS ORDERED: LACTIC ACID 12% LOTION 225 GM BTL TOP ×2 (07:00→07:14)
[2018-03-21] MEDS ORDERED: DEXTROSE 50% 50 ML SYRINGE IV (07:30)
[2018-03-21] MEDS ORDERED: GLUCAGON FOR INJ 1 MG VIAL (J1610) SC (07:30)
[2018-03-21] MEDS ORDERED: GLUCOSE 4 GM CHEW TABLET PO (07:30)
[2018-03-21] MEDS: FUROSEMIDE 100 MG/10 ML VIAL (J1940) IV ×3 (07:54→19:27)
[2018-03-21] MEDS: HumaLOG INSULIN (NovoLOG) PER UNIT SC ×4 (07:54→21:00)
[2018-03-21] MEDS: IPRATROPIUM 0.5MG/ALBUTEROL 2.5MG INH SOL UD 3ML (DUONEB)(J7620) NEB ×2 (07:57→14:47)
[2018-03-21] MEDS ORDERED: INFLUENZA VIRUS VACCINE HIGH DOSE 0.5 ML SYRINGE (90662) IM (10:00)
[2018-03-21] MEDS: BUMETANIDE 1 MG TAB PO (10:15)
[2018-03-21] MEDS: POTASSIUM CHLORIDE 10 MEQ SR TABLET PO ×2 (10:17→20:47)
[2018-03-21] MEDS: FLUoxetine 20 MG CAP PO (10:19)
[2018-03-21] MEDS: FERROUS GLUCONATE 324 MG TAB PO ×2 (10:19→20:48)
[2018-03-21] MEDS: oxyBUTYnin *DITROPAN XL* 5 MG TABCR PO (10:19)
[2018-03-21] MEDS: TAMSULOSIN 0.4 MG CAP PO (10:22)
[2018-03-21] MEDS: predniSONE 10 MG TAB PO (10:22)
[2018-03-21] MEDS: CYANOCOBALAMIN 500 MCG TAB PO (10:23)
[2018-03-21] MEDS: OMEPRAZOLE 20 MG CAP PO ×2 (10:23→20:48)
[2018-03-21] MEDS: MULTIVITAMINS/MINERALS THERAP 1 TAB PO (10:24)
[2018-03-21] MEDS: ASPIRIN 81 MG ENTERIC TAB PO (10:24)
[2018-03-21] MEDS: GABAPENTIN 300 MG CAP PO ×3 (10:25→20:48)
[2018-03-21] MEDS: FEBUXOSTAT 40 MG TABLET (ULORIC) PO (10:25)
[2018-03-21] MEDS: ATORVASTATIN 20 MG TAB PO (10:25)
[2018-03-21] MEDS: CYCLOPHOSPHAMIDE 25 MG PO ×2 (10:26→20:47)
[2018-03-21 11:39] LABS: FERRITIN 393 NG/ML (26-388); IRON (FE) 60 UG/DL (65-175); PERCENT SATURATION 21.7 % (19.7-50.0); TOTAL IRON BINDING CAPACITY 276 UG/DL (250-450)
[2018-03-21 11:56] LABS: BEDSIDE GLUCOSE 208 MG/DL (83-110)
[2018-03-21] MEDS: NORCO, ANEXSIA 5/325MG TABLET (HYDROcodone/ACETAMINOPHEN) PO ×2 (12:01→21:03)
[2018-03-21] MEDS: SPIRONOLACTONE 50 MG TAB PO ×2 (12:13→17:19)
[2018-03-21] MEDS: CHLORHEXIDINE ORAL RINSE 0.12%/15ML 120ML BOTTLE MT (12:13)
[2018-03-21 13:18] LABS: CREATININE,RANDOM URINE 26.5 MG/DL; TOTAL PROTEIN,RANDOM URINE 138.3 MG/DL (0.0-12.0)
[2018-03-21 13:21] LABS: APPEARANCE, URINE CLEAR (CLEAR); BACTERIA, URINE AUTO 1+ (NEGATIVE); BILIRUBIN, URINE AUTO NEGATIVE (NEGATIVE); BLOOD, URINE BLOOD 2+ (NEGATIVE); COLOR, URINE YELLOW (YELLOW); GLUCOSE, URINE (UA) AUTO NEGATIVE (NEGATIVE); KETONE, URINE AUTO NEGATIVE (NEGATIVE); LEUKOCYTE ESTERASE, URINE AUTO TRACE (NEGATIVE); MUCUS, URINE SMALL (NEGATIVE); NITRITE, URINE AUTO NEGATIVE (NEGATIVE); PROTEIN, URINE AUTO 2+ mg/dL (NEGATIVE); RBC, URINE AUTO 25 /HPF (0-3); SPECIFIC GRAVITY URINE AUTO 1.009 (1.002-1.035); SQUAMOUS EPITHELIAL CELL UR AU 0 /HPF (0-6); UROBILINOGEN, URINE AUTO 0.2 mg/dL (0.0-2.0); WBC, URINE AUTO 10 /HPF (0-3); YEAST LIKE CELL URINE AUTO SMALL
[2018-03-21 17:17] LABS: BEDSIDE GLUCOSE 153 MG/DL (83-110)
[2018-03-21] MEDS ORDERED: SLF 3 ML SYR IV (18:15)
[2018-03-21] MEDS: MIRTAZAPINE 15 MG TAB PO (20:48)
[2018-03-21] MEDS: zolPIDEM TARTRATE 5 MG TAB PO (20:48)
[2018-03-21 20:55] LABS: BEDSIDE GLUCOSE 169 MG/DL (83-110)
[2018-03-21] MEDS: traZODone 50 MG TAB PO (21:00)
[2018-03-21] MEDS: SLF 3 ML SYR IV (21:56)
[2018-03-22] MEDS: IPRATROPIUM 0.5MG/ALBUTEROL 2.5MG INH SOL UD 3ML (DUONEB)(J7620) NEB ×3 (00:41→15:47)
[2018-03-22] MEDS: FUROSEMIDE 100 MG/10 ML VIAL (J1940) IV ×4 (01:21→19:57)
[2018-03-22] MEDS: NORCO, ANEXSIA 5/325MG TABLET (HYDROcodone/ACETAMINOPHEN) PO ×5 (01:22→21:29)
[2018-03-22 04:40] LABS: HEMATOCRIT 21.7 % (42.0-52.0); MEAN CORPUSCULAR HEMOGLOBIN 31.7 pg (27.0-33.0); MEAN CORPUSCULAR HGB CONC 32.3 g/dl (32.0-36.5); MEAN CORPUSCULAR VOLUME 98.2 fl (80.0-96.0); PLATELET COUNT, AUTOMATED 160 10^3/uL (150-450); RED BLOOD COUNT 2.21 10^6/uL (4.30-6.10); RED CELL DISTRIBUTION WIDTH 23.9 % (11.5-14.5); WHITE BLOOD COUNT 2.2 10^3/uL (4.0-10.0)
[2018-03-22 04:50] LABS: INR 3.06; PROTHROMBIN TIME 32.3 SECONDS (12.1-14.4)
[2018-03-22 04:57] LABS: ANION GAP 6 MEQ/L (8-16); BLOOD UREA NITROGEN 71 MG/DL (7-18); CALCIUM LEVEL 7.8 MG/DL (8.8-10.2); CARBON DIOXIDE LEVEL 34 MEQ/L (21-32); CHLORIDE LEVEL 101 MEQ/L (98-107); CREATININE FOR GFR 1.58 MG/DL (0.70-1.30); GLOMERULAR FILTRATION RATE 46.1 (>42); GLUCOSE, FASTING 137 MG/DL (70-100); POTASSIUM SERUM 4.3 MEQ/L (3.5-5.1); SODIUM LEVEL 141 MEQ/L (136-145)
[2018-03-22] MEDS: PIPERACILLIN/TAZOBACTAM SOD 3.375 GM in D5W MINI-BAG PLUS 50 ML IV ×2 (05:56→14:00)
[2018-03-22] MEDS: SLF 3 ML SYR IV ×3 (05:57→20:04)
[2018-03-22] MEDS: HumaLOG INSULIN (NovoLOG) PER UNIT SC ×4 (08:13→19:59)
[2018-03-22] MEDS: CYCLOPHOSPHAMIDE 25 MG PO (09:00)
[2018-03-22] MEDS: GABAPENTIN 300 MG CAP PO ×3 (09:56→20:00)
[2018-03-22] MEDS: BACTRIM 160MG/800MG DS TAB PO (09:56)
[2018-03-22] MEDS: FILGRASTIM 300 MCG/0.5 ML SYRINGE (J1442 PER 1MCG) SC (09:56)
[2018-03-22] MEDS: FEBUXOSTAT 40 MG TABLET (ULORIC) PO (09:56)
[2018-03-22] MEDS: CYANOCOBALAMIN 500 MCG TAB PO (09:56)
[2018-03-22] MEDS: predniSONE 10 MG TAB PO (09:56)
[2018-03-22] MEDS: TAMSULOSIN 0.4 MG CAP PO (09:57)
[2018-03-22] MEDS: FERROUS GLUCONATE 324 MG TAB PO ×2 (09:57→20:00)
[2018-03-22] MEDS: oxyBUTYnin *DITROPAN XL* 5 MG TABCR PO (09:57)
[2018-03-22] MEDS: OMEPRAZOLE 20 MG CAP PO ×2 (09:57→20:00)
[2018-03-22] MEDS: MULTIVITAMINS/MINERALS THERAP 1 TAB PO (09:57)
[2018-03-22] MEDS: FLUoxetine 20 MG CAP PO (09:57)
[2018-03-22] MEDS: ASPIRIN 81 MG ENTERIC TAB PO (09:57)
[2018-03-22] MEDS: ATORVASTATIN 20 MG TAB PO (09:58)
[2018-03-22] MEDS: POTASSIUM CHLORIDE 10 MEQ SR TABLET PO ×2 (09:58→20:00)
[2018-03-22] MEDS: SPIRONOLACTONE 50 MG TAB PO ×2 (09:58→17:18)
[2018-03-22 10:39] LABS: IMMEDIATE SPIN CROSSMATCH 1 1
[2018-03-22] MEDS ORDERED: NORCO, ANEXSIA 5/325MG TABLET (HYDROcodone/ACETAMINOPHEN) PO (10:45)
[2018-03-22 12:16] LABS: BEDSIDE GLUCOSE 135 MG/DL (83-110)
[2018-03-22 17:25] LABS: BEDSIDE GLUCOSE 223 MG/DL (83-110)
[2018-03-22 19:38] LABS: BEDSIDE GLUCOSE 194 MG/DL (83-110)
[2018-03-22] MEDS: zolPIDEM TARTRATE 5 MG TAB PO (19:58)
[2018-03-22] MEDS: traZODone 50 MG TAB PO (19:59)
[2018-03-22] MEDS: MIRTAZAPINE 15 MG TAB PO (20:00)
[2018-03-23] MEDS: IPRATROPIUM 0.5MG/ALBUTEROL 2.5MG INH SOL UD 3ML (DUONEB)(J7620) NEB ×6 (00:12→23:44)
[2018-03-23] MEDS: NORCO, ANEXSIA 5/325MG TABLET (HYDROcodone/ACETAMINOPHEN) PO ×5 (01:45→20:11)
[2018-03-23] MEDS: FUROSEMIDE 100 MG/10 ML VIAL (J1940) IV ×4 (02:41→20:12)
[2018-03-23] MEDS: SLF 3 ML SYR IV ×3 (06:24→20:11)
[2018-03-23 07:49] LABS: HEMATOCRIT 23.7 % (42.0-52.0); HEMOGLOBIN 7.9 g/dl (13.5-17.5); MEAN CORPUSCULAR HEMOGLOBIN 32.2 pg (27.0-33.0); MEAN CORPUSCULAR HGB CONC 33.3 g/dl (32.0-36.5); MEAN CORPUSCULAR VOLUME 96.7 fl (80.0-96.0); PLATELET COUNT, AUTOMATED 174 10^3/uL (150-450); RED BLOOD COUNT 2.45 10^6/uL (4.30-6.10); RED CELL DISTRIBUTION WIDTH 24.5 % (11.5-14.5); WHITE BLOOD COUNT 7.9 10^3/uL (4.0-10.0)
[2018-03-23 07:51] LABS: BEDSIDE GLUCOSE 105 MG/DL (83-110)
[2018-03-23 08:10] LABS: ANION GAP 8 MEQ/L (8-16); BLOOD UREA NITROGEN 82 MG/DL (7-18); CALCIUM LEVEL 8.6 MG/DL (8.8-10.2); CARBON DIOXIDE LEVEL 31 MEQ/L (21-32); CHLORIDE LEVEL 99 MEQ/L (98-107); CREATININE FOR GFR 1.98 MG/DL (0.70-1.30); GLOMERULAR FILTRATION RATE 35.5 (>42); GLUCOSE, FASTING 107 MG/DL (70-100); INR 2.37; POTASSIUM SERUM 5.4 MEQ/L (3.5-5.1); PROTHROMBIN TIME 26.4 SECONDS (12.1-14.4); SODIUM LEVEL 138 MEQ/L (136-145)
[2018-03-23] MEDS: FERROUS GLUCONATE 324 MG TAB PO ×2 (08:24→20:11)
[2018-03-23] MEDS: FEBUXOSTAT 40 MG TABLET (ULORIC) PO (08:24)
[2018-03-23] MEDS: predniSONE 10 MG TAB PO (08:24)
[2018-03-23] MEDS: OMEPRAZOLE 20 MG CAP PO ×2 (08:24→20:11)
[2018-03-23] MEDS: TAMSULOSIN 0.4 MG CAP PO (08:24)
[2018-03-23] MEDS: CYANOCOBALAMIN 500 MCG TAB PO (08:24)
[2018-03-23] MEDS: SPIRONOLACTONE 50 MG TAB PO ×2 (08:24→17:23)
[2018-03-23] MEDS: MULTIVITAMINS/MINERALS THERAP 1 TAB PO (08:24)
[2018-03-23] MEDS: FLUoxetine 20 MG CAP PO (08:25)
[2018-03-23] MEDS: ATORVASTATIN 20 MG TAB PO (08:25)
[2018-03-23] MEDS: oxyBUTYnin *DITROPAN XL* 5 MG TABCR PO (08:25)
[2018-03-23] MEDS: ASPIRIN 81 MG ENTERIC TAB PO (08:25)
[2018-03-23] MEDS: GABAPENTIN 300 MG CAP PO ×3 (08:26→20:11)
[2018-03-23] MEDS: HumaLOG INSULIN (NovoLOG) PER UNIT SC ×4 (08:26→20:11)
[2018-03-23] MEDS: POTASSIUM CHLORIDE 10 MEQ SR TABLET PO (08:50)
[2018-03-23 11:49] LABS: BEDSIDE GLUCOSE 154 MG/DL (83-110)
[2018-03-23 12:23] LABS: FERRITIN 510 NG/ML (26-388); IRON (FE) 86 UG/DL (65-175); PERCENT SATURATION 30.4 % (19.7-50.0); TOTAL IRON BINDING CAPACITY 283 UG/DL (250-450)
[2018-03-23 13:09] LABS: REASON FOR REVIEW RBC MORPHOLOGY; SLIDE REVIEW Report; SOURCE PERIPHERAL SMEAR
[2018-03-23 13:14] LABS: POSITIVE DIFF POS FLAG; POSITIVE MORPH POS FLAG
[2018-03-23 13:21] LABS: RETIC HEMOGLOBIN EQUIVALENT 40.2 pg (24-36); RETICULOCYTE % 2.6 % (0.5-1.5)
[2018-03-23] MEDS: LOSARTAN 25 MG TAB PO (14:08)
[2018-03-23 14:47] LABS: IMMEDIATE SPIN CROSSMATCH 1 1
[2018-03-23 16:25] LABS: BEDSIDE GLUCOSE 181 MG/DL (83-110)
[2018-03-23 19:48] LABS: BEDSIDE GLUCOSE 141 MG/DL (83-110)
[2018-03-23] MEDS: MIRTAZAPINE 15 MG TAB PO (20:11)
[2018-03-23] MEDS: traZODone 50 MG TAB PO (20:11)
[2018-03-23] MEDS: zolPIDEM TARTRATE 5 MG TAB PO (20:11)
[2018-03-23] MEDS: CARVedilol 6.25 MG TAB PO (23:57)
[2018-03-24] MEDS: NORCO, ANEXSIA 5/325MG TABLET (HYDROcodone/ACETAMINOPHEN) PO ×4 (00:23→17:01)
[2018-03-24] MEDS: FUROSEMIDE 100 MG/10 ML VIAL (J1940) IV ×4 (02:54→20:00)
[2018-03-24 05:19] LABS: BEDSIDE GLUCOSE 118 MG/DL (83-110)
[2018-03-24] MEDS: CARVedilol 6.25 MG TAB PO ×3 (06:12→17:02)
[2018-03-24] MEDS: SLF 3 ML SYR IV ×3 (06:12→20:24)
[2018-03-24] MEDS: IPRATROPIUM 0.5MG/ALBUTEROL 2.5MG INH SOL UD 3ML (DUONEB)(J7620) NEB ×2 (07:19→16:17)
[2018-03-24 07:44] LABS: HEMATOCRIT 25.9 % (42.0-52.0); HEMOGLOBIN 8.7 g/dl (13.5-17.5); MEAN CORPUSCULAR HEMOGLOBIN 32.1 pg (27.0-33.0); MEAN CORPUSCULAR HGB CONC 33.6 g/dl (32.0-36.5); MEAN CORPUSCULAR VOLUME 95.6 fl (80.0-96.0); PLATELET COUNT, AUTOMATED 172 10^3/uL (150-450); RED BLOOD COUNT 2.71 10^6/uL (4.30-6.10); RED CELL DISTRIBUTION WIDTH 24.4 % (11.5-14.5); WHITE BLOOD COUNT 8.1 10^3/uL (4.0-10.0)
[2018-03-24 07:58] LABS: INR 1.62; PROTHROMBIN TIME 19.5 SECONDS (12.1-14.4)
[2018-03-24 08:02] LABS: ALBUMIN 2.8 GM/DL (3.2-5.2); ANION GAP 8 MEQ/L (8-16); BLOOD UREA NITROGEN 87 MG/DL (7-18); CALCIUM LEVEL 8.8 MG/DL (8.8-10.2); CARBON DIOXIDE LEVEL 33 MEQ/L (21-32); CHLORIDE LEVEL 98 MEQ/L (98-107); CREATININE FOR GFR 1.91 MG/DL (0.70-1.30); GLOMERULAR FILTRATION RATE 37.1 (>42); GLUCOSE, FASTING 95 MG/DL (70-100); SODIUM LEVEL 139 MEQ/L (136-145)
[2018-03-24] MEDS: TAMSULOSIN 0.4 MG CAP PO (08:08)
[2018-03-24] MEDS: FEBUXOSTAT 40 MG TABLET (ULORIC) PO (08:08)
[2018-03-24] MEDS: HumaLOG INSULIN (NovoLOG) PER UNIT SC ×4 (08:08→20:21)
[2018-03-24] MEDS: predniSONE 10 MG TAB PO (08:08)
[2018-03-24] MEDS: OMEPRAZOLE 20 MG CAP PO ×2 (08:09→20:20)
[2018-03-24] MEDS: LOSARTAN 25 MG TAB PO (08:09)
[2018-03-24] MEDS: CYANOCOBALAMIN 500 MCG TAB PO (08:09)
[2018-03-24] MEDS: FLUoxetine 20 MG CAP PO (08:09)
[2018-03-24] MEDS: ASPIRIN 81 MG ENTERIC TAB PO (08:10)
[2018-03-24] MEDS: GABAPENTIN 300 MG CAP PO ×3 (08:10→20:21)
[2018-03-24] MEDS: MULTIVITAMINS/MINERALS THERAP 1 TAB PO (08:11)
[2018-03-24] MEDS: FERROUS GLUCONATE 324 MG TAB PO ×2 (08:11→20:21)
[2018-03-24] MEDS: SPIRONOLACTONE 50 MG TAB PO ×2 (08:11→17:00)
[2018-03-24] MEDS: BACTRIM 160MG/800MG DS TAB PO (08:11)
[2018-03-24] MEDS: ATORVASTATIN 20 MG TAB PO (08:11)
[2018-03-24] MEDS: oxyBUTYnin *DITROPAN XL* 5 MG TABCR PO (08:11)
[2018-03-24 12:05] LABS: BEDSIDE GLUCOSE 138 MG/DL (83-110)
[2018-03-24] MEDS: CHLOROTHIAZIDE 500 MG VIAL (J1205) IV (12:37)
[2018-03-24 16:55] LABS: BEDSIDE GLUCOSE 164 MG/DL (83-110)
[2018-03-24] MEDS: WARFARIN SOD 3 MG TAB PO (17:01)
[2018-03-24 20:07] LABS: BEDSIDE GLUCOSE 147 MG/DL (83-110)
[2018-03-24] MEDS: MIRTAZAPINE 15 MG TAB PO (20:20)
[2018-03-24] MEDS: traZODone 50 MG TAB PO (20:24)
[2018-03-24] MEDS: zolPIDEM TARTRATE 5 MG TAB PO (20:24)
[2018-03-25] MEDS: CARVedilol 6.25 MG TAB PO ×3 (00:23→11:41)
[2018-03-25] MEDS: IPRATROPIUM 0.5MG/ALBUTEROL 2.5MG INH SOL UD 3ML (DUONEB)(J7620) NEB ×3 (00:39→15:31)
[2018-03-25] MEDS: FUROSEMIDE 100 MG/10 ML VIAL (J1940) IV ×4 (02:35→19:49)
[2018-03-25] MEDS: NORCO, ANEXSIA 5/325MG TABLET (HYDROcodone/ACETAMINOPHEN) PO ×4 (05:37→19:50)
[2018-03-25] MEDS: SLF 3 ML SYR IV ×3 (05:39→21:35)
[2018-03-25 07:50] LABS: HEMATOCRIT 28.4 % (42.0-52.0); HEMOGLOBIN 9.1 g/dl (13.5-17.5); MEAN CORPUSCULAR HEMOGLOBIN 31.8 pg (27.0-33.0); MEAN CORPUSCULAR VOLUME 99.3 fl (80.0-96.0); PLATELET COUNT, AUTOMATED 164 10^3/uL (150-450); RED BLOOD COUNT 2.86 10^6/uL (4.30-6.10); RED CELL DISTRIBUTION WIDTH 24.3 % (11.5-14.5); WHITE BLOOD COUNT 6.6 10^3/uL (4.0-10.0)
[2018-03-25 07:59] LABS: INR 1.46
[2018-03-25 08:08] LABS: ANION GAP 6 MEQ/L (8-16); BLOOD UREA NITROGEN 84 MG/DL (7-18); CALCIUM LEVEL 8.3 MG/DL (8.8-10.2); CARBON DIOXIDE LEVEL 34 MEQ/L (21-32); CHLORIDE LEVEL 100 MEQ/L (98-107); CREATININE FOR GFR 1.99 MG/DL (0.70-1.30); GLOMERULAR FILTRATION RATE 35.3 (>42); GLUCOSE, FASTING 104 MG/DL (70-100); POTASSIUM SERUM 4.2 MEQ/L (3.5-5.1); SODIUM LEVEL 140 MEQ/L (136-145)
[2018-03-25] MEDS: LOSARTAN 25 MG TAB PO (09:00)
[2018-03-25] MEDS: FERROUS GLUCONATE 324 MG TAB PO ×2 (09:13→21:00)
[2018-03-25] MEDS: TAMSULOSIN 0.4 MG CAP PO (09:13)
[2018-03-25] MEDS: MULTIVITAMINS/MINERALS THERAP 1 TAB PO (09:13)
[2018-03-25] MEDS: oxyBUTYnin *DITROPAN XL* 5 MG TABCR PO (09:13)
[2018-03-25] MEDS: OMEPRAZOLE 20 MG CAP PO ×2 (09:13→21:00)
[2018-03-25] MEDS: GABAPENTIN 300 MG CAP PO ×3 (09:14→21:00)
[2018-03-25] MEDS: ATORVASTATIN 20 MG TAB PO (09:14)
[2018-03-25] MEDS: ASPIRIN 81 MG ENTERIC TAB PO (09:14)
[2018-03-25] MEDS: CYANOCOBALAMIN 500 MCG TAB PO (09:14)
[2018-03-25] MEDS: FLUoxetine 20 MG CAP PO (09:14)
[2018-03-25] MEDS: HumaLOG INSULIN (NovoLOG) PER UNIT SC ×4 (09:15→21:00)
[2018-03-25] MEDS: SPIRONOLACTONE 50 MG TAB PO ×2 (09:15→16:09)
[2018-03-25] MEDS: predniSONE 10 MG TAB PO (09:15)
[2018-03-25 11:39] LABS: BEDSIDE GLUCOSE 150 MG/DL (83-110)
[2018-03-25] MEDS: FEBUXOSTAT 40 MG TABLET (ULORIC) PO (11:40)
[2018-03-25] MEDS: CHLOROTHIAZIDE 500 MG VIAL (J1205) IV (11:40)
[2018-03-25] MEDS: WARFARIN SOD 3 MG TAB PO (16:09)
[2018-03-25 17:17] LABS: BEDSIDE GLUCOSE 227 MG/DL (83-110)
[2018-03-25 19:59] LABS: BEDSIDE GLUCOSE 134 MG/DL (83-110)
[2018-03-25] MEDS: MIRTAZAPINE 15 MG TAB PO (21:00)
[2018-03-25] MEDS: CARVedilol 12.5 MG TAB PO (21:00)
[2018-03-25] MEDS: traZODone 50 MG TAB PO (21:00)
[2018-03-26] MEDS: IPRATROPIUM 0.5MG/ALBUTEROL 2.5MG INH SOL UD 3ML (DUONEB)(J7620) NEB ×3 (00:50→15:30)
[2018-03-26] MEDS: NORCO, ANEXSIA 5/325MG TABLET (HYDROcodone/ACETAMINOPHEN) PO ×4 (02:28→22:44)
[2018-03-26] MEDS: FUROSEMIDE 100 MG/10 ML VIAL (J1940) IV ×4 (05:43→17:31)
[2018-03-26] MEDS: SLF 3 ML SYR IV ×3 (05:44→22:00)
[2018-03-26 06:30] LABS: HEMATOCRIT 29.2 % (42.0-52.0); HEMOGLOBIN 9.3 g/dl (13.5-17.5); MEAN CORPUSCULAR HGB CONC 31.8 g/dl (32.0-36.5); MEAN CORPUSCULAR VOLUME 100.3 fl (80.0-96.0); PLATELET COUNT, AUTOMATED 159 10^3/uL (150-450); RED BLOOD COUNT 2.91 10^6/uL (4.30-6.10); WHITE BLOOD COUNT 5.2 10^3/uL (4.0-10.0)
[2018-03-26 06:44] LABS: ANION GAP 8 MEQ/L (8-16); BLOOD UREA NITROGEN 76 MG/DL (7-18); CALCIUM LEVEL 8.6 MG/DL (8.8-10.2); CARBON DIOXIDE LEVEL 34 MEQ/L (21-32); CHLORIDE LEVEL 99 MEQ/L (98-107); CREATININE FOR GFR 1.77 MG/DL (0.70-1.30); GLOMERULAR FILTRATION RATE 40.5 (>42); GLUCOSE, FASTING 129 MG/DL (70-100); SODIUM LEVEL 141 MEQ/L (136-145)
[2018-03-26 06:50] LABS: INR 1.48; PROTHROMBIN TIME 18.2 SECONDS (12.1-14.4)
[2018-03-26] MEDS: HumaLOG INSULIN (NovoLOG) PER UNIT SC ×4 (07:30→21:00)
[2018-03-26] MEDS: ATORVASTATIN 20 MG TAB PO (08:09)
[2018-03-26] MEDS: FEBUXOSTAT 40 MG TABLET (ULORIC) PO (08:09)
[2018-03-26] MEDS: CARVedilol 12.5 MG TAB PO ×2 (08:10→21:00)
[2018-03-26] MEDS: predniSONE 10 MG TAB PO (08:10)
[2018-03-26] MEDS: LOSARTAN 25 MG TAB PO (08:10)
[2018-03-26] MEDS: oxyBUTYnin *DITROPAN XL* 5 MG TABCR PO (08:10)
[2018-03-26] MEDS: TAMSULOSIN 0.4 MG CAP PO (08:11)
[2018-03-26] MEDS: FLUoxetine 20 MG CAP PO (08:11)
[2018-03-26] MEDS: GABAPENTIN 300 MG CAP PO ×3 (08:12→21:00)
[2018-03-26] MEDS: ASPIRIN 81 MG ENTERIC TAB PO (08:12)
[2018-03-26] MEDS: OMEPRAZOLE 20 MG CAP PO ×2 (08:12→21:00)
[2018-03-26] MEDS: CYANOCOBALAMIN 500 MCG TAB PO (08:12)
[2018-03-26] MEDS: FERROUS GLUCONATE 324 MG TAB PO ×2 (08:13→21:00)
[2018-03-26] MEDS: SPIRONOLACTONE 50 MG TAB PO ×2 (08:13→16:04)
[2018-03-26] MEDS: MULTIVITAMINS/MINERALS THERAP 1 TAB PO (08:13)
[2018-03-26] MEDS: DARBEPOETIN 100 MCG/0.5 ML *NON-DIALYSIS* SYRINGE (J0881) SC (08:14)
[2018-03-26] MEDS: metOLazone 5 MG TAB PO (09:30)
[2018-03-26 11:42] LABS: BEDSIDE GLUCOSE 256 MG/DL (83-110)
[2018-03-26] MEDS: WARFARIN SOD 3 MG TAB PO (16:04)
[2018-03-26 17:09] LABS: BEDSIDE GLUCOSE 246 MG/DL (83-110)
[2018-03-26 20:50] LABS: BEDSIDE GLUCOSE 124 MG/DL (83-110)
[2018-03-26] MEDS: traZODone 50 MG TAB PO (21:00)
[2018-03-26] MEDS: MIRTAZAPINE 15 MG TAB PO (21:00)
[2018-03-26] MEDS: zolPIDEM TARTRATE 5 MG TAB PO (22:02)
[2018-03-27] MEDS: NORCO, ANEXSIA 5/325MG TABLET (HYDROcodone/ACETAMINOPHEN) PO ×3 (05:17→18:40)
[2018-03-27] MEDS: FUROSEMIDE 100 MG/10 ML VIAL (J1940) IV ×4 (05:17→18:39)
[2018-03-27] MEDS: SLF 3 ML SYR IV ×3 (05:17→20:27)
[2018-03-27 07:13] LABS: HEMATOCRIT 29.8 % (42.0-52.0); HEMOGLOBIN 9.6 g/dl (13.5-17.5); MEAN CORPUSCULAR HEMOGLOBIN 32.3 pg (27.0-33.0); MEAN CORPUSCULAR HGB CONC 32.2 g/dl (32.0-36.5); MEAN CORPUSCULAR VOLUME 100.3 fl (80.0-96.0); PLATELET COUNT, AUTOMATED 141 10^3/uL (150-450); RED BLOOD COUNT 2.97 10^6/uL (4.30-6.10); RED CELL DISTRIBUTION WIDTH 24.7 % (11.5-14.5); WHITE BLOOD COUNT 3.6 10^3/uL (4.0-10.0)
[2018-03-27 07:21] LABS: INR 1.72; PROTHROMBIN TIME 20.5 SECONDS (12.1-14.4)
[2018-03-27] MEDS: HumaLOG INSULIN (NovoLOG) PER UNIT SC ×4 (07:30→20:25)
[2018-03-27 07:32] LABS: ANION GAP 5 MEQ/L (8-16); BLOOD UREA NITROGEN 76 MG/DL (7-18); CALCIUM LEVEL 8.4 MG/DL (8.8-10.2); CARBON DIOXIDE LEVEL 38 MEQ/L (21-32); CHLORIDE LEVEL 98 MEQ/L (98-107); CREATININE FOR GFR 1.58 MG/DL (0.70-1.30); GLOMERULAR FILTRATION RATE 46.1 (>42); GLUCOSE, FASTING 97 MG/DL (70-100); POTASSIUM SERUM 3.8 MEQ/L (3.5-5.1); SODIUM LEVEL 141 MEQ/L (136-145)
[2018-03-27] MEDS: IPRATROPIUM 0.5MG/ALBUTEROL 2.5MG INH SOL UD 3ML (DUONEB)(J7620) NEB ×4 (08:20→23:32)
[2018-03-27] MEDS: FERROUS GLUCONATE 324 MG TAB PO ×2 (08:45→20:25)
[2018-03-27] MEDS: GABAPENTIN 300 MG CAP PO ×3 (08:45→20:25)
[2018-03-27] MEDS: FLUoxetine 20 MG CAP PO (08:45)
[2018-03-27] MEDS: oxyBUTYnin *DITROPAN XL* 5 MG TABCR PO (08:45)
[2018-03-27] MEDS: FEBUXOSTAT 40 MG TABLET (ULORIC) PO (08:45)
[2018-03-27] MEDS: OMEPRAZOLE 20 MG CAP PO ×2 (08:45→20:25)
[2018-03-27] MEDS: SPIRONOLACTONE 50 MG TAB PO ×2 (08:45→18:41)
[2018-03-27] MEDS: ATORVASTATIN 20 MG TAB PO (08:45)
[2018-03-27] MEDS: ASPIRIN 81 MG ENTERIC TAB PO (08:45)
[2018-03-27] MEDS: LOSARTAN 25 MG TAB PO (08:46)
[2018-03-27] MEDS: MULTIVITAMINS/MINERALS THERAP 1 TAB PO (08:46)
[2018-03-27] MEDS: TAMSULOSIN 0.4 MG CAP PO (08:46)
[2018-03-27] MEDS: CYANOCOBALAMIN 500 MCG TAB PO (08:46)
[2018-03-27] MEDS: CARVedilol 12.5 MG TAB PO ×2 (08:46→20:25)
[2018-03-27] MEDS: predniSONE 10 MG TAB PO (08:47)
[2018-03-27 11:55] LABS: BEDSIDE GLUCOSE 155 MG/DL (83-110)
[2018-03-27 16:37] LABS: BEDSIDE GLUCOSE 237 MG/DL (83-110)
[2018-03-27] MEDS: WARFARIN SOD 3 MG TAB PO (18:41)
[2018-03-27] MEDS: MIRTAZAPINE 15 MG TAB PO (20:25)
[2018-03-27] MEDS: traZODone 50 MG TAB PO (20:25)
[2018-03-27 20:27] LABS: BEDSIDE GLUCOSE 179 MG/DL (83-110)
[2018-03-28] MEDS: FUROSEMIDE 100 MG/10 ML VIAL (J1940) IV ×4 (00:21→17:44)
[2018-03-28] MEDS: NORCO, ANEXSIA 5/325MG TABLET (HYDROcodone/ACETAMINOPHEN) PO ×4 (00:23→17:43)
[2018-03-28 05:51] LABS: HEMATOCRIT 27.7 % (42.0-52.0); HEMOGLOBIN 8.7 g/dl (13.5-17.5); MEAN CORPUSCULAR HEMOGLOBIN 32.1 pg (27.0-33.0); MEAN CORPUSCULAR HGB CONC 31.4 g/dl (32.0-36.5); MEAN CORPUSCULAR VOLUME 102.2 fl (80.0-96.0); RED BLOOD COUNT 2.71 10^6/uL (4.30-6.10); RED CELL DISTRIBUTION WIDTH 24.6 % (11.5-14.5); WHITE BLOOD COUNT 2.8 10^3/uL (4.0-10.0)
[2018-03-28 06:08] LABS: ANION GAP 7 MEQ/L (8-16); BLOOD UREA NITROGEN 74 MG/DL (7-18); CALCIUM LEVEL 7.6 MG/DL (8.8-10.2); CARBON DIOXIDE LEVEL 36 MEQ/L (21-32); CHLORIDE LEVEL 97 MEQ/L (98-107); CREATININE FOR GFR 1.49 MG/DL (0.70-1.30); GLOMERULAR FILTRATION RATE 49.4 (>42); GLUCOSE, FASTING 118 MG/DL (70-100); POTASSIUM SERUM 3.8 MEQ/L (3.5-5.1); SODIUM LEVEL 140 MEQ/L (136-145)
[2018-03-28 06:18] LABS: INR 1.61; PROTHROMBIN TIME 19.4 SECONDS (12.1-14.4)
[2018-03-28] MEDS: SLF 3 ML SYR IV ×3 (06:39→21:10)
[2018-03-28 07:12] LABS: PLATELET COUNT, AUTOMATED 76 10^3/uL (150-450)
[2018-03-28] MEDS: IPRATROPIUM 0.5MG/ALBUTEROL 2.5MG INH SOL UD 3ML (DUONEB)(J7620) NEB ×2 (08:01→14:40)
[2018-03-28] MEDS: FEBUXOSTAT 40 MG TABLET (ULORIC) PO (08:21)
[2018-03-28] MEDS: ASPIRIN 81 MG ENTERIC TAB PO (08:21)
[2018-03-28] MEDS: GABAPENTIN 300 MG CAP PO ×3 (08:21→21:09)
[2018-03-28] MEDS: LOSARTAN 25 MG TAB PO (08:21)
[2018-03-28] MEDS: CYANOCOBALAMIN 500 MCG TAB PO (08:21)
[2018-03-28] MEDS: ATORVASTATIN 20 MG TAB PO (08:22)
[2018-03-28] MEDS: FLUoxetine 20 MG CAP PO (08:22)
[2018-03-28] MEDS: FERROUS GLUCONATE 324 MG TAB PO ×2 (08:22→21:09)
[2018-03-28] MEDS: oxyBUTYnin *DITROPAN XL* 5 MG TABCR PO (08:22)
[2018-03-28] MEDS: TAMSULOSIN 0.4 MG CAP PO (08:22)
[2018-03-28] MEDS: MULTIVITAMINS/MINERALS THERAP 1 TAB PO (08:22)
[2018-03-28] MEDS: SPIRONOLACTONE 50 MG TAB PO ×2 (08:22→17:43)
[2018-03-28] MEDS: predniSONE 10 MG TAB PO (08:22)
[2018-03-28] MEDS: CARVedilol 12.5 MG TAB PO ×2 (08:22→21:10)
[2018-03-28] MEDS: OMEPRAZOLE 20 MG CAP PO ×2 (08:22→21:09)
[2018-03-28] MEDS: HumaLOG INSULIN (NovoLOG) PER UNIT SC ×4 (08:23→20:59)
[2018-03-28 13:08] LABS: BEDSIDE GLUCOSE 183 MG/DL (83-110)
[2018-03-28] MEDS: DARBEPOETIN 100 MCG/0.5 ML *NON-DIALYSIS* SYRINGE (J0881) SC (13:12)
[2018-03-28] MEDS: FILGRASTIM 300 MCG/0.5 ML SYRINGE (J1442 PER 1MCG) SC (13:12)
[2018-03-28 16:41] LABS: BEDSIDE GLUCOSE 176 MG/DL (83-110)
[2018-03-28] MEDS: WARFARIN SOD 3 MG TAB PO (17:44)
[2018-03-28 20:06] LABS: BEDSIDE GLUCOSE 162 MG/DL (83-110)
[2018-03-28] MEDS: traZODone 50 MG TAB PO (20:59)
[2018-03-28] MEDS: MIRTAZAPINE 15 MG TAB PO (21:09)
[2018-03-28] MEDS: zolPIDEM TARTRATE 5 MG TAB PO (21:09)
[2018-03-29] MEDS: FUROSEMIDE 100 MG/10 ML VIAL (J1940) IV ×2 (00:09→05:47)
[2018-03-29] MEDS: NORCO, ANEXSIA 5/325MG TABLET (HYDROcodone/ACETAMINOPHEN) PO ×5 (00:13→21:40)
[2018-03-29] MEDS: IPRATROPIUM 0.5MG/ALBUTEROL 2.5MG INH SOL UD 3ML (DUONEB)(J7620) NEB ×3 (00:15→15:28)
[2018-03-29] MEDS: SLF 3 ML SYR IV ×3 (05:47→22:25)
[2018-03-29 07:13] LABS: BEDSIDE GLUCOSE 100 MG/DL (83-110)
[2018-03-29] MEDS: HumaLOG INSULIN (NovoLOG) PER UNIT SC ×4 (07:14→21:00)
[2018-03-29 08:03] LABS: HEMATOCRIT 29.3 % (42.0-52.0); HEMOGLOBIN 9.2 g/dl (13.5-17.5); MEAN CORPUSCULAR HEMOGLOBIN 32.5 pg (27.0-33.0); MEAN CORPUSCULAR HGB CONC 31.4 g/dl (32.0-36.5); MEAN CORPUSCULAR VOLUME 103.5 fl (80.0-96.0); PLATELET COUNT, AUTOMATED 126 10^3/uL (150-450); RED BLOOD COUNT 2.83 10^6/uL (4.30-6.10); WHITE BLOOD COUNT 12.1 10^3/uL (4.0-10.0)
[2018-03-29] MEDS: FEBUXOSTAT 40 MG TABLET (ULORIC) PO (08:03)
[2018-03-29] MEDS: FLUoxetine 20 MG CAP PO (08:03)
[2018-03-29] MEDS: predniSONE 10 MG TAB PO (08:03)
[2018-03-29] MEDS: ASPIRIN 81 MG ENTERIC TAB PO (08:04)
[2018-03-29] MEDS: CYANOCOBALAMIN 500 MCG TAB PO (08:04)
[2018-03-29] MEDS: FERROUS GLUCONATE 324 MG TAB PO ×2 (08:04→21:40)
[2018-03-29] MEDS: oxyBUTYnin *DITROPAN XL* 5 MG TABCR PO (08:04)
[2018-03-29] MEDS: SPIRONOLACTONE 50 MG TAB PO ×2 (08:04→16:36)
[2018-03-29] MEDS: GABAPENTIN 300 MG CAP PO ×3 (08:04→21:37)
[2018-03-29] MEDS: OMEPRAZOLE 20 MG CAP PO ×2 (08:04→21:38)
[2018-03-29] MEDS: TAMSULOSIN 0.4 MG CAP PO (08:04)
[2018-03-29] MEDS: MULTIVITAMINS/MINERALS THERAP 1 TAB PO (08:04)
[2018-03-29] MEDS: ATORVASTATIN 20 MG TAB PO (08:04)
[2018-03-29] MEDS: LOSARTAN 25 MG TAB PO (08:07)
[2018-03-29] MEDS: CARVedilol 12.5 MG TAB PO ×2 (08:08→21:41)
[2018-03-29 08:30] LABS: ANION GAP 6 MEQ/L (8-16); BLOOD UREA NITROGEN 77 MG/DL (7-18); CALCIUM LEVEL 7.9 MG/DL (8.8-10.2); CARBON DIOXIDE LEVEL 38 MEQ/L (21-32); CHLORIDE LEVEL 96 MEQ/L (98-107); CREATININE FOR GFR 1.76 MG/DL (0.70-1.30); GLOMERULAR FILTRATION RATE 40.7 (>42); GLUCOSE, FASTING 93 MG/DL (70-100); POTASSIUM SERUM 3.7 MEQ/L (3.5-5.1); SODIUM LEVEL 140 MEQ/L (136-145)
[2018-03-29 11:46] LABS: BEDSIDE GLUCOSE 145 MG/DL (83-110)
[2018-03-29] MEDS: WARFARIN SOD 5 MG TAB PO (16:36)
[2018-03-29] MEDS: TORSEMIDE 100 MG TAB PO (16:36)
[2018-03-29 16:45] LABS: BEDSIDE GLUCOSE 249 MG/DL (83-110)
[2018-03-29] MEDS: traZODone 50 MG TAB PO (21:00)
[2018-03-29 21:39] LABS: BEDSIDE GLUCOSE 128 MG/DL (83-110)
[2018-03-29] MEDS: MIRTAZAPINE 15 MG TAB PO (21:40)
[2018-03-29] MEDS: zolPIDEM TARTRATE 5 MG TAB PO (21:46)
[2018-03-30] MEDS: SLF 3 ML SYR IV ×2 (05:00→11:12)
[2018-03-30] MEDS: NORCO, ANEXSIA 5/325MG TABLET (HYDROcodone/ACETAMINOPHEN) PO (05:39)
[2018-03-30 06:56] LABS: HEMATOCRIT 29.1 % (42.0-52.0); HEMOGLOBIN 9.3 g/dl (13.5-17.5); MEAN CORPUSCULAR HEMOGLOBIN 32.5 pg (27.0-33.0); MEAN CORPUSCULAR VOLUME 101.7 fl (80.0-96.0); PLATELET COUNT, AUTOMATED 138 10^3/uL (150-450); RED BLOOD COUNT 2.86 10^6/uL (4.30-6.10); RED CELL DISTRIBUTION WIDTH 24.6 % (11.5-14.5); WHITE BLOOD COUNT 11.3 10^3/uL (4.0-10.0)
[2018-03-30 07:21] LABS: ANION GAP 5 MEQ/L (8-16); BLOOD UREA NITROGEN 82 MG/DL (7-18); CARBON DIOXIDE LEVEL 37 MEQ/L (21-32); CHLORIDE LEVEL 97 MEQ/L (98-107); CREATININE FOR GFR 1.67 MG/DL (0.70-1.30); GLOMERULAR FILTRATION RATE 43.3 (>42); GLUCOSE, FASTING 124 MG/DL (70-100); POTASSIUM SERUM 3.7 MEQ/L (3.5-5.1); SODIUM LEVEL 139 MEQ/L (136-145)
[2018-03-30] MEDS: HumaLOG INSULIN (NovoLOG) PER UNIT SC ×2 (07:32→12:00)
[2018-03-30] MEDS: ASPIRIN 81 MG ENTERIC TAB PO (08:28)
[2018-03-30] MEDS: FERROUS GLUCONATE 324 MG TAB PO (08:28)
[2018-03-30] MEDS: SPIRONOLACTONE 50 MG TAB PO (08:28)
[2018-03-30] MEDS: FLUoxetine 20 MG CAP PO (08:28)
[2018-03-30] MEDS: MULTIVITAMINS/MINERALS THERAP 1 TAB PO (08:28)
[2018-03-30] MEDS: ATORVASTATIN 20 MG TAB PO (08:28)
[2018-03-30] MEDS: CYANOCOBALAMIN 500 MCG TAB PO (08:28)
[2018-03-30] MEDS: GABAPENTIN 300 MG CAP PO (08:29)
[2018-03-30] MEDS: predniSONE 10 MG TAB PO (08:29)
[2018-03-30] MEDS: CARVedilol 12.5 MG TAB PO (08:30)
[2018-03-30] MEDS: FEBUXOSTAT 40 MG TABLET (ULORIC) PO (08:30)
[2018-03-30] MEDS: TAMSULOSIN 0.4 MG CAP PO (08:31)
[2018-03-30] MEDS: TORSEMIDE 100 MG TAB PO (08:31)
[2018-03-30] MEDS: OMEPRAZOLE 20 MG CAP PO (08:31)
[2018-03-30] MEDS: LOSARTAN 25 MG TAB PO (08:31)
[2018-03-30] MEDS: oxyBUTYnin *DITROPAN XL* 5 MG TABCR PO (08:31)
[2018-03-30 09:53] LABS: NT-PRO BNP 7905 PG/ML (<125)
[2018-03-30] MEDS: POTASSIUM CHLORIDE 10 MEQ SR TABLET PO ×2 (10:12→11:35)
[2018-03-30] MEDS: FUROSEMIDE 100 MG/10 ML VIAL (J1940) IV (10:12)
[2018-03-30] MEDS: IPRATROPIUM 0.5MG/ALBUTEROL 2.5MG INH SOL UD 3ML (DUONEB)(J7620) NEB ×2 (10:38)
[2018-03-30] MEDS: metOLazone 2.5 MG TAB PO (11:35)
[2018-03-30 12:05] LABS: BEDSIDE GLUCOSE 189 MG/DL (83-110)
[2018-03-30] MEDS: FLUBLOK(EGG FREE)(QUAD)INFLUENZA VACC 0.5ML SYRINGE (90682)18YRS&OLDER IM (13:00)
== END 2018-03-30 13:03 | disposition home or self-care (01) | DRG 291 ==
LOC: M PCU 03-24 10:00 → M MSPAV 03-25 16:52 → M ED 05:35 → M ED INP 06:51 → M ICU 08:53 → M MS4PR 03-22 21:08
PROC: 30233N1 Transfusion of Nonautologous Red Blood Cells into Peripheral Vein, Percutaneous Approach (ICD-10-PCS; principal; 2018-03-22)
DX: I13.0 Hypertensive heart and chronic kidney disease with heart failure and stage 1 through stage 4 chronic kidney disease, or unspecified chronic kidney disease (principal); J96.21 Acute and chronic respiratory failure with hypoxia; I50.43 Acute on chronic combined systolic (congestive) and diastolic (congestive) heart failure; D61.811 Other drug-induced pancytopenia; N02.2 Recurrent and persistent hematuria with diffuse membranous glomerulonephritis; N17.9 Acute kidney failure, unspecified; I48.2 Chronic atrial fibrillation; N18.3 Chronic kidney disease, stage 3 (moderate); D53.1 Other megaloblastic anemias, not elsewhere classified; E78.5 Hyperlipidemia, unspecified; G47.00 Insomnia, unspecified; E11.9 Type 2 diabetes mellitus without complications; F32.9 Major depressive disorder, single episode, unspecified; M32.13 Lung involvement in systemic lupus erythematosus; Z79.899 Other long term (current) drug therapy; Z79.82 Long term (current) use of aspirin; Z88.8 Allergy status to other drugs, medicaments and biological substances; E66.01 Morbid (severe) obesity due to excess calories; Z87.891 Personal history of nicotine dependence; M54.5 Low back pain; M10.9 Gout, unspecified; D70.9 Neutropenia, unspecified; E87.5 Hyperkalemia; N40.0 Benign prostatic hyperplasia without lower urinary tract symptoms; K21.9 Gastro-esophageal reflux disease without esophagitis; J84.10 Pulmonary fibrosis, unspecified

== ENCOUNTER 2018-04-01 11:03 | Inpatient (IN) | payer OTHER, MEDICARE ==
[2018-04-01 11:44] LABS: HEMATOCRIT 28.1 % (42.0-52.0); MEAN CORPUSCULAR HEMOGLOBIN 32.3 pg (27.0-33.0); MEAN CORPUSCULAR VOLUME 100.7 fl (80.0-96.0); PLATELET COUNT, AUTOMATED 154 10^3/uL (150-450); RED BLOOD COUNT 2.79 10^6/uL (4.30-6.10); RED CELL DISTRIBUTION WIDTH 25.5 % (11.5-14.5); WHITE BLOOD COUNT 4.3 10^3/uL (4.0-10.0)
[2018-04-01 11:48] LABS: VENOUS BASE EXCESS 9.3 (-2.0-2.0); VENOUS HCO3 33.5 MEQ/L (23.0-27.0); VENOUS O2 SATURATION 96.1 % (60.0-80.0); VENOUS PARTIAL PRESSURE CO2 44.3 mmHg (38.0-50.0); VENOUS PARTIAL PRESSURE O2 83.3 mmHg (30.0-50.0); VENOUS PH 7.497 UNITS (7.330-7.430); VENOUS STANDARD HCO3 33.1 MEQ/L; VENOUS TOTAL CO2 34.9 MEQ/L (24.0-28.0)
[2018-04-01 11:49] LABS: ADD MANUAL DIFFER YES; DIFF SLIDE NUMBER 237; POSITIVE MORPH POS FLAG
[2018-04-01 11:56] LABS: INR 3.26
[2018-04-01 12:11] LABS: ABG HCO3 35.7 MEQ/L (22.0-26.0); ABG O2 SATURATION 95.7 % (95.0-99.0); ABG PARTIAL PRESSURE CO2 42.7 mmHg (35.0-45.0); ABG PARTIAL PRESSURE O2 76.4 mmHg (75.0-100.0); ABG STANDARD HCO3 35.7 MEQ/L (22.0-26.0)
[2018-04-01 12:15] LABS: ATYPICAL LYMPH 12 % (0-5); BANDS 2 % (< 11); BASOPHILS 1 % (0-4); LYMPHOCYTES 2 % (16-52); MONOCYTES 9 % (0-8); NEUTROPHILS 74 % (35-75)
[2018-04-01 12:16] LABS: LACTIC ACID SEPSIS PROTOCOL 2.1 MMOL/L (0.4-2.0)
[2018-04-01 12:16] LABS: PLATELET ESTIMATE NORMAL (NORMAL); TOXIC VACUOLATION 1+
[2018-04-01 12:17] LABS: POLYCHROMASIA 1+; TOXIC GRANULATION 1+
[2018-04-01 12:22] LABS: ALBUMIN 2.4 GM/DL (3.2-5.2); ALBUMIN/GLOBULIN RATIO 0.92 (1.00-1.93); ALKALINE PHOSPHATASE 66 U/L (45-117); ALT/SGPT 22 U/L (12-78); ANION GAP 7 MEQ/L (8-16); AST/SGOT 20 U/L (7-37); BILIRUBIN,DIRECT 0.2 MG/DL (0.0-0.2); BILIRUBIN,TOTAL 0.7 MG/DL (0.2-1.0); BLOOD UREA NITROGEN 68 MG/DL (7-18); CARBON DIOXIDE LEVEL 37 MEQ/L (21-32); CHLORIDE LEVEL 95 MEQ/L (98-107); CK-MB VALUE MASS < 1.0 NG/ML (<3.6); CPK CREATINE PHOSPHOKINASE 15 U/L (39-308); CREATININE FOR GFR 1.61 MG/DL (0.70-1.30); GLOMERULAR FILTRATION RATE 45.1 (>42); GLUCOSE, FASTING 124 MG/DL (70-100); MB/CK RELATIVE INDEX 6.67 (< OR =4); NT-PRO BNP 12323 PG/ML (<125); POTASSIUM SERUM 4.2 MEQ/L (3.5-5.1); SODIUM LEVEL 139 MEQ/L (136-145); TROPONIN I 0.05 NG/ML (< 0.10)
[2018-04-01 12:40] LABS: INFLUENZA A AMPLIFICATION NEGATIVE (NEGATIVE); INFLUENZA B AMPLIFICATION NEGATIVE (NEGATIVE)
[2018-04-01] MEDS: PERCOCET 5MG/325MG TAB PO ×2 (12:40→18:42)
[2018-04-01] MEDS ORDERED: ONDANSETRON 4MG/2ML VIAL (J2405) IV (14:00)
[2018-04-01] MEDS ORDERED: ONDANSETRON 4 MG TAB (S0181) PO (14:00)
[2018-04-01] MEDS ORDERED: GLUCOSE 4 GM CHEW TABLET PO (14:00)
[2018-04-01] MEDS ORDERED: ACETAMINOPHEN TAB 650MG DOSE (2X325MG) PO (14:00)
[2018-04-01] MEDS ORDERED: GLUCAGON FOR INJ 1 MG VIAL (J1610) SC (14:00)
[2018-04-01] MEDS ORDERED: DEXTROSE 50% 50 ML SYRINGE IV (14:00)
[2018-04-01] MEDS ORDERED: LACTIC ACID 12% LOTION 225 GM BTL TOP (14:45)
[2018-04-01] MEDS ORDERED: ALBUTEROL 90 MCG/ACT 8GM HFA INHALER INH (14:45)
[2018-04-01] MEDS ORDERED: FAMOTIDINE 20 MG TAB PO (14:45)
[2018-04-01] MEDS: FUROSEMIDE 100 MG/10 ML VIAL (J1940) IV (15:12)
[2018-04-01] MEDS ORDERED: FUROSEMIDE 100 MG/10 ML VIAL (J1940) IV (17:45)
[2018-04-01 17:58] LABS: LACTIC ACID SEPSIS PROTOCOL 1.5 MMOL/L (0.4-2.0)
[2018-04-01 18:00] LABS: CK-MB VALUE MASS < 1.0 NG/ML (<3.6); CPK CREATINE PHOSPHOKINASE 22 U/L (39-308); MB/CK RELATIVE INDEX 4.55 (< OR =4); TROPONIN I 0.05 NG/ML (< 0.10)
[2018-04-01 18:10] LABS: BEDSIDE GLUCOSE 138 MG/DL (83-110)
[2018-04-01] MEDS: GABAPENTIN 300 MG CAP PO ×2 (18:37→21:10)
[2018-04-01] MEDS: HumaLOG INSULIN (NovoLOG) PER UNIT SC ×2 (18:37→20:36)
[2018-04-01] MEDS: SPIRONOLACTONE 50 MG TAB PO (18:37)
[2018-04-01 19:26] LABS: AMORPHOUS SEDIMENT RFX MODERATE (NEGATIVE); KETONE, URINE AUTO RFX NEGATIVE (NEGATIVE); NITRITE, URINE AUTO RFX NEGATIVE (NEGATIVE); RBC, URINE AUTO RFX 5 /HPF (0-3); SPECIFIC GRAVITY UR AUTO RFX 1.009 (1.002-1.035); SQUAM EPITHELIAL CELL UR AURFX 0 /HPF (0-6)
[2018-04-01 19:28] LABS: LEUKOCYTE ESTERASE UR AUTO RFX 1+ (NEGATIVE); WBC, URINE AUTO RFX 22 /HPF (0-3)
[2018-04-01] MEDS: FUROSEMIDE injection 250 MG in D5W 225 ML IV (19:29)
[2018-04-01 20:35] LABS: BEDSIDE GLUCOSE 87 MG/DL (83-110)
[2018-04-01] MEDS: OMEPRAZOLE 20 MG CAP PO (21:10)
[2018-04-01] MEDS: POTASSIUM CHLORIDE 10 MEQ SR TABLET PO (21:11)
[2018-04-01] MEDS: traZODone 50 MG TAB PO (21:12)
[2018-04-01] MEDS: FERROUS GLUCONATE 324 MG TAB PO (21:12)
[2018-04-01] MEDS: CARVedilol 12.5 MG TAB PO (21:13)
[2018-04-01] MEDS: MIRTAZAPINE 15 MG TAB PO (21:17)
[2018-04-01] MEDS: metOLazone 5 MG TAB PO (21:30)
[2018-04-02 01:33] LABS: CK-MB VALUE MASS < 1.0 NG/ML (<3.6); CPK CREATINE PHOSPHOKINASE 12 U/L (39-308); MB/CK RELATIVE INDEX 8.33 (< OR =4); TROPONIN I 0.06 NG/ML (< 0.10)
[2018-04-02] MEDS: PERCOCET 5MG/325MG TAB PO ×4 (04:43→19:57)
[2018-04-02 05:59] LABS: BASO % 0.8 % (0.0-1.0); HEMATOCRIT 29.3 % (42.0-52.0); HEMOGLOBIN 9.1 g/dl (13.5-17.5); IMMATURE GRANULOCYTE % 1.8 % (0-3.0); LYMPH # 0.5 10^3/uL (1.5-4.5); LYMPH % 12.6 % (24.0-44.0); MEAN CORPUSCULAR HEMOGLOBIN 32.2 pg (27.0-33.0); MEAN CORPUSCULAR HGB CONC 31.1 g/dl (32.0-36.5); MEAN CORPUSCULAR VOLUME 103.5 fl (80.0-96.0); MONO # 0.3 10^3/uL (0.0-0.8); NEUTROPHILS % 77.8 % (36.0-66.0); PLATELET COUNT, AUTOMATED 129 10^3/uL (150-450); RED BLOOD COUNT 2.83 10^6/uL (4.30-6.10); RED CELL DISTRIBUTION WIDTH 24.9 % (11.5-14.5); WHITE BLOOD COUNT 3.9 10^3/uL (4.0-10.0)
[2018-04-02 06:03] LABS: INR 2.43; PROTHROMBIN TIME 26.9 SECONDS (12.1-14.4)
[2018-04-02 06:14] LABS: ESTIMATED AVERAGE GLUCOSE 120 MG/DL (60-110); HEMOGLOBIN A1c 5.8 %
[2018-04-02 06:23] LABS: ANION GAP 9 MEQ/L (8-16); BLOOD UREA NITROGEN 73 MG/DL (7-18); CALCIUM LEVEL 8.1 MG/DL (8.8-10.2); CARBON DIOXIDE LEVEL 38 MEQ/L (21-32); CHLORIDE LEVEL 95 MEQ/L (98-107); CREATININE FOR GFR 1.52 MG/DL (0.70-1.30); GLOMERULAR FILTRATION RATE 48.2 (>42); GLUCOSE, FASTING 106 MG/DL (70-100); MAGNESIUM LEVEL 1.7 MG/DL (1.8-2.4); SODIUM LEVEL 142 MEQ/L (136-145)
[2018-04-02] MEDS: FEBUXOSTAT 40 MG TABLET (ULORIC) PO (08:48)
[2018-04-02] MEDS: HumaLOG INSULIN (NovoLOG) PER UNIT SC ×4 (08:48→21:00)
[2018-04-02] MEDS: CARVedilol 12.5 MG TAB PO ×2 (08:49→21:01)
[2018-04-02] MEDS: POTASSIUM CHLORIDE 10 MEQ SR TABLET PO ×2 (08:49→21:03)
[2018-04-02] MEDS: ASPIRIN 81 MG ENTERIC TAB PO (08:50)
[2018-04-02] MEDS: SPIRONOLACTONE 50 MG TAB PO ×2 (08:50→17:01)
[2018-04-02] MEDS: GABAPENTIN 300 MG CAP PO ×3 (08:50→20:59)
[2018-04-02] MEDS: oxyBUTYnin *DITROPAN XL* 5 MG TABCR PO (08:50)
[2018-04-02] MEDS: FLUoxetine 20 MG CAP PO (08:50)
[2018-04-02] MEDS: TAMSULOSIN 0.4 MG CAP PO (08:50)
[2018-04-02] MEDS: MULTIVITAMINS/MINERALS THERAP 1 TAB PO (08:50)
[2018-04-02] MEDS: predniSONE 10 MG TAB PO (08:51)
[2018-04-02] MEDS: OMEPRAZOLE 20 MG CAP PO ×2 (08:51→21:00)
[2018-04-02] MEDS: CYANOCOBALAMIN 500 MCG TAB PO (08:51)
[2018-04-02] MEDS: LOSARTAN 25 MG TAB PO (08:51)
[2018-04-02] MEDS: metOLazone 5 MG TAB PO ×2 (08:52→21:02)
[2018-04-02] MEDS: FERROUS GLUCONATE 324 MG TAB PO ×2 (08:52→21:00)
[2018-04-02] MEDS: ATORVASTATIN 20 MG TAB PO (08:52)
[2018-04-02] MEDS ORDERED: BACTRIM 160MG/800MG DS TAB PO (09:00)
[2018-04-02 09:57] LABS: CPK CREATINE PHOSPHOKINASE 15 U/L (39-308); MB/CK RELATIVE INDEX 8.67 (< OR =4); TROPONIN I 0.04 NG/ML (< 0.10)
[2018-04-02 11:02] LABS: BEDSIDE GLUCOSE 157 MG/DL (83-110)
[2018-04-02 16:55] LABS: BEDSIDE GLUCOSE 161 MG/DL (83-110)
[2018-04-02] MEDS: WARFARIN SOD 4 MG TAB PO (17:01)
[2018-04-02] MEDS: FUROSEMIDE injection 250 MG in D5W 225 ML IV (17:01)
[2018-04-02 20:55] LABS: BEDSIDE GLUCOSE 239 MG/DL (83-110)
[2018-04-02] MEDS: traZODone 50 MG TAB PO (21:00)
[2018-04-02] MEDS: zolPIDEM TARTRATE 5 MG TAB PO (21:00)
[2018-04-02] MEDS: MIRTAZAPINE 15 MG TAB PO (21:04)
[2018-04-03 05:17] LABS: BASO % 0.2 % (0.0-1.0); HEMATOCRIT 26.3 % (42.0-52.0); HEMOGLOBIN 8.2 g/dl (13.5-17.5); IMMATURE GRANULOCYTE % 0.9 % (0-3.0); LYMPH # 0.8 10^3/uL (1.5-4.5); LYMPH % 19.1 % (24.0-44.0); MEAN CORPUSCULAR HGB CONC 31.2 g/dl (32.0-36.5); MEAN CORPUSCULAR VOLUME 102.7 fl (80.0-96.0); MONO # 0.3 10^3/uL (0.0-0.8); MONO % 7.3 % (0.0-5.0); NEUTROPHILS # 3.1 10^3/uL (1.8-7.7); NEUTROPHILS % 72.5 % (36.0-66.0); PLATELET COUNT, AUTOMATED 165 10^3/uL (150-450); RED BLOOD COUNT 2.56 10^6/uL (4.30-6.10); RED CELL DISTRIBUTION WIDTH 24.5 % (11.5-14.5); WHITE BLOOD COUNT 4.2 10^3/uL (4.0-10.0)
[2018-04-03 05:28] LABS: INR 2.43; PROTHROMBIN TIME 26.9 SECONDS (12.1-14.4)
[2018-04-03 05:38] LABS: ANION GAP 6 MEQ/L (8-16); BLOOD UREA NITROGEN 72 MG/DL (7-18); CALCIUM LEVEL 7.6 MG/DL (8.8-10.2); CARBON DIOXIDE LEVEL 37 MEQ/L (21-32); CHLORIDE LEVEL 94 MEQ/L (98-107); CREATININE FOR GFR 1.83 MG/DL (0.70-1.30); GLOMERULAR FILTRATION RATE 38.9 (>42); GLUCOSE, FASTING 114 MG/DL (70-100); MAGNESIUM LEVEL 1.8 MG/DL (1.8-2.4); POTASSIUM SERUM 4.4 MEQ/L (3.5-5.1); SODIUM LEVEL 137 MEQ/L (136-145)
[2018-04-03] MEDS: PERCOCET 5MG/325MG TAB PO ×3 (07:29→19:53)
[2018-04-03] MEDS: HumaLOG INSULIN (NovoLOG) PER UNIT SC ×4 (08:19→21:00)
[2018-04-03] MEDS: TAMSULOSIN 0.4 MG CAP PO (08:20)
[2018-04-03] MEDS: FERROUS GLUCONATE 324 MG TAB PO ×2 (08:20→21:43)
[2018-04-03] MEDS: FEBUXOSTAT 40 MG TABLET (ULORIC) PO (08:20)
[2018-04-03] MEDS: oxyBUTYnin *DITROPAN XL* 5 MG TABCR PO (08:20)
[2018-04-03] MEDS: GABAPENTIN 300 MG CAP PO ×3 (08:20→21:43)
[2018-04-03] MEDS: FLUoxetine 20 MG CAP PO (08:21)
[2018-04-03] MEDS: metOLazone 5 MG TAB PO ×2 (08:21→21:45)
[2018-04-03] MEDS: ASPIRIN 81 MG ENTERIC TAB PO (08:21)
[2018-04-03] MEDS: predniSONE 10 MG TAB PO (08:21)
[2018-04-03] MEDS: SPIRONOLACTONE 50 MG TAB PO ×2 (08:21→17:05)
[2018-04-03] MEDS: ATORVASTATIN 20 MG TAB PO (08:21)
[2018-04-03] MEDS: POTASSIUM CHLORIDE 10 MEQ SR TABLET PO (08:21)
[2018-04-03] MEDS: CYANOCOBALAMIN 500 MCG TAB PO (08:22)
[2018-04-03] MEDS: CARVedilol 12.5 MG TAB PO ×2 (08:22→21:44)
[2018-04-03] MEDS: MULTIVITAMINS/MINERALS THERAP 1 TAB PO (08:22)
[2018-04-03] MEDS: OMEPRAZOLE 20 MG CAP PO ×2 (08:22→21:43)
[2018-04-03] MEDS: LOSARTAN 25 MG TAB PO (08:22)
[2018-04-03] MEDS: PIPERACILLIN/TAZOBACTAM SOD 2.25 GM in D5W MINI-BAG PLUS 50 ML IV ×3 (10:37→21:43)
[2018-04-03 12:27] LABS: BEDSIDE GLUCOSE 183 MG/DL (83-110)
[2018-04-03] MEDS: WARFARIN SOD 4 MG TAB PO (17:05)
[2018-04-03 17:19] LABS: BEDSIDE GLUCOSE 179 MG/DL (83-110)
[2018-04-03 17:51] LABS: IMMEDIATE SPIN CROSSMATCH 1 1
[2018-04-03 20:47] LABS: BEDSIDE GLUCOSE 165 MG/DL (83-110)
[2018-04-03] MEDS: traZODone 50 MG TAB PO (21:00)
[2018-04-03] MEDS: zolPIDEM TARTRATE 5 MG TAB PO (21:44)
[2018-04-03] MEDS: MIRTAZAPINE 15 MG TAB PO (21:44)
[2018-04-03] MEDS: FUROSEMIDE injection 250 MG in D5W 225 ML IV (23:05)
[2018-04-04] MEDS: PERCOCET 5MG/325MG TAB PO ×4 (02:22→17:33)
[2018-04-04] MEDS: PIPERACILLIN/TAZOBACTAM SOD 2.25 GM in D5W MINI-BAG PLUS 50 ML IV ×4 (02:23→20:58)
[2018-04-04 05:51] LABS: BASO % 0.2 % (0.0-1.0); HEMATOCRIT 27.7 % (42.0-52.0); HEMOGLOBIN 8.8 g/dl (13.5-17.5); IMMATURE GRANULOCYTE % 1.3 % (0-3.0); LYMPH # 0.9 10^3/uL (1.5-4.5); LYMPH % 18.7 % (24.0-44.0); MEAN CORPUSCULAR HEMOGLOBIN 32.5 pg (27.0-33.0); MEAN CORPUSCULAR HGB CONC 31.8 g/dl (32.0-36.5); MEAN CORPUSCULAR VOLUME 102.2 fl (80.0-96.0); MONO # 0.3 10^3/uL (0.0-0.8); MONO % 6.6 % (0.0-5.0); NEUTROPHILS # 3.5 10^3/uL (1.8-7.7); NEUTROPHILS % 73.2 % (36.0-66.0); PLATELET COUNT, AUTOMATED 172 10^3/uL (150-450); RED BLOOD COUNT 2.71 10^6/uL (4.30-6.10); RED CELL DISTRIBUTION WIDTH 23.9 % (11.5-14.5); WHITE BLOOD COUNT 4.7 10^3/uL (4.0-10.0)
[2018-04-04 06:07] LABS: INR 3.62; PROTHROMBIN TIME 36.9 SECONDS (12.1-14.4)
[2018-04-04 06:24] LABS: ANION GAP 7 MEQ/L (8-16); BLOOD UREA NITROGEN 74 MG/DL (7-18); CALCIUM LEVEL 7.1 MG/DL (8.8-10.2); CARBON DIOXIDE LEVEL 36 MEQ/L (21-32); CHLORIDE LEVEL 93 MEQ/L (98-107); CREATININE FOR GFR 1.91 MG/DL (0.70-1.30); GLOMERULAR FILTRATION RATE 37.1 (>42); GLUCOSE, FASTING 136 MG/DL (70-100); MAGNESIUM LEVEL 1.9 MG/DL (1.8-2.4); POTASSIUM SERUM 4.4 MEQ/L (3.5-5.1); SODIUM LEVEL 136 MEQ/L (136-145)
[2018-04-04] MEDS: ASPIRIN 81 MG ENTERIC TAB PO (09:24)
[2018-04-04] MEDS: CARVedilol 12.5 MG TAB PO ×2 (09:24→20:58)
[2018-04-04] MEDS: HumaLOG INSULIN (NovoLOG) PER UNIT SC ×4 (09:24→20:26)
[2018-04-04] MEDS: OMEPRAZOLE 20 MG CAP PO ×2 (09:25→20:57)
[2018-04-04] MEDS: FEBUXOSTAT 40 MG TABLET (ULORIC) PO (09:25)
[2018-04-04] MEDS: oxyBUTYnin *DITROPAN XL* 5 MG TABCR PO (09:26)
[2018-04-04] MEDS: FLUoxetine 20 MG CAP PO (09:26)
[2018-04-04] MEDS: LOSARTAN 25 MG TAB PO (09:26)
[2018-04-04] MEDS: GABAPENTIN 300 MG CAP PO ×3 (09:26→20:57)
[2018-04-04] MEDS: MULTIVITAMINS/MINERALS THERAP 1 TAB PO (09:27)
[2018-04-04] MEDS: ATORVASTATIN 20 MG TAB PO (09:27)
[2018-04-04] MEDS: SPIRONOLACTONE 50 MG TAB PO ×2 (09:27→16:36)
[2018-04-04] MEDS: TAMSULOSIN 0.4 MG CAP PO (09:27)
[2018-04-04] MEDS: POTASSIUM CHLORIDE 10 MEQ SR TABLET PO (09:27)
[2018-04-04] MEDS: FERROUS GLUCONATE 324 MG TAB PO ×2 (09:27→20:57)
[2018-04-04] MEDS: metOLazone 5 MG TAB PO ×2 (09:28→20:57)
[2018-04-04] MEDS: CYANOCOBALAMIN 500 MCG TAB PO (09:28)
[2018-04-04] MEDS: predniSONE 10 MG TAB PO (09:28)
[2018-04-04 11:58] LABS: BEDSIDE GLUCOSE 152 MG/DL (83-110)
[2018-04-04] MEDS: DARBEPOETIN 100 MCG/0.5 ML *NON-DIALYSIS* SYRINGE (J0881) SQ (12:27)
[2018-04-04 14:03] LABS: IMMEDIATE SPIN CROSSMATCH 1 1
[2018-04-04] MEDS: FUROSEMIDE injection 250 MG in D5W 225 ML IV (17:34)
[2018-04-04 18:49] LABS: BEDSIDE GLUCOSE 248 MG/DL (83-110)
[2018-04-04 19:46] LABS: BEDSIDE GLUCOSE 223 MG/DL (83-110)
[2018-04-04] MEDS: MIRTAZAPINE 15 MG TAB PO (20:57)
[2018-04-04] MEDS: traZODone 50 MG TAB PO (20:58)
[2018-04-04] MEDS: zolPIDEM TARTRATE 5 MG TAB PO (20:58)
[2018-04-04] MEDS: SLF 3 ML SYR IV (21:40)
[2018-04-05] MEDS: SLF 3 ML SYR IV ×4 (03:32→20:45)
[2018-04-05] MEDS: PIPERACILLIN/TAZOBACTAM SOD 2.25 GM in D5W MINI-BAG PLUS 50 ML IV ×4 (03:32→20:45)
[2018-04-05] MEDS: PERCOCET 5MG/325MG TAB PO ×5 (03:37→20:43)
[2018-04-05 06:49] LABS: BASO % 0.2 % (0.0-1.0); HEMATOCRIT 30.5 % (42.0-52.0); HEMOGLOBIN 9.8 g/dl (13.5-17.5); IMMATURE GRANULOCYTE % 1.3 % (0-3.0); LYMPH # 0.9 10^3/uL (1.5-4.5); LYMPH % 17.5 % (24.0-44.0); MEAN CORPUSCULAR HEMOGLOBIN 32.2 pg (27.0-33.0); MEAN CORPUSCULAR HGB CONC 32.1 g/dl (32.0-36.5); MEAN CORPUSCULAR VOLUME 100.3 fl (80.0-96.0); MONO # 0.3 10^3/uL (0.0-0.8); MONO % 6.3 % (0.0-5.0); NEUTROPHILS # 3.9 10^3/uL (1.8-7.7); NEUTROPHILS % 74.7 % (36.0-66.0); PLATELET COUNT, AUTOMATED 194 10^3/uL (150-450); RED BLOOD COUNT 3.04 10^6/uL (4.30-6.10); WHITE BLOOD COUNT 5.3 10^3/uL (4.0-10.0)
[2018-04-05 07:04] LABS: INR 2.78; PROTHROMBIN TIME 29.9 SECONDS (12.1-14.4)
[2018-04-05 07:18] LABS: ANION GAP 6 MEQ/L (8-16); BLOOD UREA NITROGEN 70 MG/DL (7-18); CARBON DIOXIDE LEVEL 39 MEQ/L (21-32); CHLORIDE LEVEL 97 MEQ/L (98-107); CREATININE FOR GFR 1.52 MG/DL (0.70-1.30); GLOMERULAR FILTRATION RATE 48.2 (>42); GLUCOSE, FASTING 91 MG/DL (70-100); MAGNESIUM LEVEL 2.1 MG/DL (1.8-2.4); POTASSIUM SERUM 4.1 MEQ/L (3.5-5.1); SODIUM LEVEL 142 MEQ/L (136-145)
[2018-04-05] MEDS: HumaLOG INSULIN (NovoLOG) PER UNIT SC ×4 (07:30→20:41)
[2018-04-05] MEDS ORDERED: PILL CRUSHER/CUTTER 1 EACH XX (09:45)
[2018-04-05] MEDS: oxyBUTYnin *DITROPAN XL* 5 MG TABCR PO (09:46)
[2018-04-05] MEDS: MULTIVITAMINS/MINERALS THERAP 1 TAB PO (09:46)
[2018-04-05] MEDS: CARVedilol 12.5 MG TAB PO ×2 (09:46→20:44)
[2018-04-05] MEDS: OMEPRAZOLE 20 MG CAP PO ×2 (09:47→20:42)
[2018-04-05] MEDS: POTASSIUM CHLORIDE 10 MEQ SR TABLET PO (09:48)
[2018-04-05] MEDS: FEBUXOSTAT 40 MG TABLET (ULORIC) PO (09:48)
[2018-04-05] MEDS: CYANOCOBALAMIN 500 MCG TAB PO (09:48)
[2018-04-05] MEDS: FERROUS GLUCONATE 324 MG TAB PO ×2 (09:48→20:42)
[2018-04-05] MEDS: ATORVASTATIN 20 MG TAB PO (09:48)
[2018-04-05] MEDS: predniSONE 10 MG TAB PO (09:49)
[2018-04-05] MEDS: TAMSULOSIN 0.4 MG CAP PO (09:49)
[2018-04-05] MEDS: ASPIRIN 81 MG ENTERIC TAB PO (09:49)
[2018-04-05] MEDS: FLUoxetine 20 MG CAP PO (09:49)
[2018-04-05] MEDS: metOLazone 5 MG TAB PO ×2 (09:50→20:44)
[2018-04-05] MEDS: GABAPENTIN 300 MG CAP PO ×3 (09:50→20:42)
[2018-04-05] MEDS: SPIRONOLACTONE 50 MG TAB PO ×2 (09:50→16:35)
[2018-04-05] MEDS: LOSARTAN 25 MG TAB PO (09:50)
[2018-04-05] MEDS: TORSEMIDE 100 MG TAB PO ×2 (11:53→16:33)
[2018-04-05 11:57] LABS: BEDSIDE GLUCOSE 138 MG/DL (83-110)
[2018-04-05] MEDS: WARFARIN SOD 3 MG TAB PO (16:33)
[2018-04-05 16:57] LABS: BEDSIDE GLUCOSE 287 MG/DL (83-110)
[2018-04-05 20:33] LABS: BEDSIDE GLUCOSE 169 MG/DL (83-110)
[2018-04-05] MEDS: traZODone 50 MG TAB PO (20:44)
[2018-04-05] MEDS: MIRTAZAPINE 15 MG TAB PO (20:45)
[2018-04-06] MEDS: PERCOCET 5MG/325MG TAB PO ×6 (00:51→22:52)
[2018-04-06] MEDS: PIPERACILLIN/TAZOBACTAM SOD 2.25 GM in D5W MINI-BAG PLUS 50 ML IV ×4 (02:28→20:48)
[2018-04-06] MEDS: SLF 3 ML SYR IV ×3 (05:30→22:00)
[2018-04-06 06:21] LABS: BASO % 0.5 % (0.0-1.0); HEMATOCRIT 33.3 % (42.0-52.0); HEMOGLOBIN 10.6 g/dl (13.5-17.5); IMMATURE GRANULOCYTE % 1.1 % (0-3.0); LYMPH # 1.3 10^3/uL (1.5-4.5); LYMPH % 20.2 % (24.0-44.0); MEAN CORPUSCULAR HEMOGLOBIN 32.1 pg (27.0-33.0); MEAN CORPUSCULAR HGB CONC 31.8 g/dl (32.0-36.5); MEAN CORPUSCULAR VOLUME 100.9 fl (80.0-96.0); MONO # 0.4 10^3/uL (0.0-0.8); MONO % 6.9 % (0.0-5.0); NEUTROPHILS # 4.6 10^3/uL (1.8-7.7); NEUTROPHILS % 71.3 % (36.0-66.0); PLATELET COUNT, AUTOMATED 238 10^3/uL (150-450); WHITE BLOOD COUNT 6.4 10^3/uL (4.0-10.0)
[2018-04-06 06:28] LABS: INR 2.26; PROTHROMBIN TIME 25.4 SECONDS (12.1-14.4)
[2018-04-06 06:47] LABS: ANION GAP 7 MEQ/L (8-16); BLOOD UREA NITROGEN 63 MG/DL (7-18); CALCIUM LEVEL 8.2 MG/DL (8.8-10.2); CARBON DIOXIDE LEVEL 39 MEQ/L (21-32); CHLORIDE LEVEL 95 MEQ/L (98-107); CREATININE FOR GFR 1.58 MG/DL (0.70-1.30); GLOMERULAR FILTRATION RATE 46.1 (>42); GLUCOSE, FASTING 80 MG/DL (70-100); POTASSIUM SERUM 4.3 MEQ/L (3.5-5.1); SODIUM LEVEL 141 MEQ/L (136-145)
[2018-04-06] MEDS: HumaLOG INSULIN (NovoLOG) PER UNIT SC ×4 (06:58→20:51)
[2018-04-06] MEDS: CYANOCOBALAMIN 500 MCG TAB PO (08:34)
[2018-04-06] MEDS: oxyBUTYnin *DITROPAN XL* 5 MG TABCR PO (08:34)
[2018-04-06] MEDS: ATORVASTATIN 20 MG TAB PO (08:34)
[2018-04-06] MEDS: FEBUXOSTAT 40 MG TABLET (ULORIC) PO (08:35)
[2018-04-06] MEDS: FLUoxetine 20 MG CAP PO (08:35)
[2018-04-06] MEDS: MULTIVITAMINS/MINERALS THERAP 1 TAB PO (08:35)
[2018-04-06] MEDS: OMEPRAZOLE 20 MG CAP PO ×2 (08:35→20:49)
[2018-04-06] MEDS: POTASSIUM CHLORIDE 10 MEQ SR TABLET PO (08:36)
[2018-04-06] MEDS: TORSEMIDE 100 MG TAB PO ×2 (08:36→17:10)
[2018-04-06] MEDS: GABAPENTIN 300 MG CAP PO ×3 (08:36→20:48)
[2018-04-06] MEDS: SPIRONOLACTONE 50 MG TAB PO ×2 (08:37→17:10)
[2018-04-06] MEDS: TAMSULOSIN 0.4 MG CAP PO (08:37)
[2018-04-06] MEDS: predniSONE 10 MG TAB PO (08:38)
[2018-04-06] MEDS: LOSARTAN 25 MG TAB PO (08:38)
[2018-04-06] MEDS: ASPIRIN 81 MG ENTERIC TAB PO (08:39)
[2018-04-06] MEDS: metOLazone 5 MG TAB PO (08:39)
[2018-04-06] MEDS: FERROUS GLUCONATE 324 MG TAB PO ×2 (08:39→20:49)
[2018-04-06] MEDS: CARVedilol 12.5 MG TAB PO ×2 (08:39→20:49)
[2018-04-06 11:57] LABS: BEDSIDE GLUCOSE 148 MG/DL (83-110)
[2018-04-06 16:39] LABS: BEDSIDE GLUCOSE 234 MG/DL (83-110)
[2018-04-06] MEDS: WARFARIN SOD 3 MG TAB PO (17:10)
[2018-04-06 20:16] LABS: BEDSIDE GLUCOSE 134 MG/DL (83-110)
[2018-04-06] MEDS: traZODone 50 MG TAB PO (20:49)
[2018-04-06] MEDS: MIRTAZAPINE 15 MG TAB PO (20:49)
[2018-04-06] MEDS: metOLazone 2.5 MG TAB PO (20:50)
[2018-04-07] MEDS: SLF 3 ML SYR IV ×3 (03:01→20:48)
[2018-04-07] MEDS: PIPERACILLIN/TAZOBACTAM SOD 2.25 GM in D5W MINI-BAG PLUS 50 ML IV ×4 (03:01→20:48)
[2018-04-07] MEDS: PERCOCET 5MG/325MG TAB PO ×5 (03:02→20:46)
[2018-04-07 05:58] LABS: BASO % 0.3 % (0.0-1.0); HEMATOCRIT 33.2 % (42.0-52.0); HEMOGLOBIN 10.6 g/dl (13.5-17.5); IMMATURE GRANULOCYTE % 1.2 % (0-3.0); LYMPH # 1.2 10^3/uL (1.5-4.5); LYMPH % 20.7 % (24.0-44.0); MEAN CORPUSCULAR HEMOGLOBIN 32.2 pg (27.0-33.0); MEAN CORPUSCULAR HGB CONC 31.9 g/dl (32.0-36.5); MEAN CORPUSCULAR VOLUME 100.9 fl (80.0-96.0); MONO # 0.5 10^3/uL (0.0-0.8); NEUTROPHILS # 4.1 10^3/uL (1.8-7.7); NEUTROPHILS % 69.8 % (36.0-66.0); PLATELET COUNT, AUTOMATED 255 10^3/uL (150-450); RED BLOOD COUNT 3.29 10^6/uL (4.30-6.10); RED CELL DISTRIBUTION WIDTH 23.8 % (11.5-14.5); WHITE BLOOD COUNT 5.9 10^3/uL (4.0-10.0)
[2018-04-07 06:14] LABS: INR 2.16; PROTHROMBIN TIME 24.5 SECONDS (12.1-14.4)
[2018-04-07 06:20] LABS: ANION GAP 5 MEQ/L (8-16); BLOOD UREA NITROGEN 66 MG/DL (7-18); CALCIUM LEVEL 8.5 MG/DL (8.8-10.2); CARBON DIOXIDE LEVEL 39 MEQ/L (21-32); CHLORIDE LEVEL 96 MEQ/L (98-107); CREATININE FOR GFR 1.59 MG/DL (0.70-1.30); GLOMERULAR FILTRATION RATE 45.8 (>42); GLUCOSE, FASTING 86 MG/DL (70-100); MAGNESIUM LEVEL 1.9 MG/DL (1.8-2.4); POTASSIUM SERUM 4.1 MEQ/L (3.5-5.1); SODIUM LEVEL 140 MEQ/L (136-145)
[2018-04-07] MEDS: HumaLOG INSULIN (NovoLOG) PER UNIT SC ×4 (07:30→20:48)
[2018-04-07] MEDS: FEBUXOSTAT 40 MG TABLET (ULORIC) PO (09:01)
[2018-04-07] MEDS: FLUoxetine 20 MG CAP PO (09:01)
[2018-04-07] MEDS: GABAPENTIN 300 MG CAP PO ×3 (09:02→20:46)
[2018-04-07] MEDS: TORSEMIDE 100 MG TAB PO ×2 (09:02→16:31)
[2018-04-07] MEDS: CYANOCOBALAMIN 500 MCG TAB PO (09:02)
[2018-04-07] MEDS: SPIRONOLACTONE 50 MG TAB PO ×2 (09:02→16:32)
[2018-04-07] MEDS: oxyBUTYnin *DITROPAN XL* 5 MG TABCR PO (09:03)
[2018-04-07] MEDS: CARVedilol 12.5 MG TAB PO ×2 (09:03→20:48)
[2018-04-07] MEDS: MULTIVITAMINS/MINERALS THERAP 1 TAB PO (09:03)
[2018-04-07] MEDS: TAMSULOSIN 0.4 MG CAP PO (09:03)
[2018-04-07] MEDS: LOSARTAN 25 MG TAB PO (09:03)
[2018-04-07] MEDS: ATORVASTATIN 20 MG TAB PO (09:04)
[2018-04-07] MEDS: FERROUS GLUCONATE 324 MG TAB PO ×2 (09:04→20:46)
[2018-04-07] MEDS: predniSONE 10 MG TAB PO (09:04)
[2018-04-07] MEDS: metOLazone 2.5 MG TAB PO ×2 (09:04→20:47)
[2018-04-07] MEDS: ASPIRIN 81 MG ENTERIC TAB PO (09:04)
[2018-04-07] MEDS: OMEPRAZOLE 20 MG CAP PO ×2 (09:04→20:46)
[2018-04-07] MEDS: POTASSIUM CHLORIDE 10 MEQ SR TABLET PO (09:09)
[2018-04-07 11:29] LABS: BEDSIDE GLUCOSE 114 MG/DL (83-110)
[2018-04-07] MEDS: WARFARIN SOD 4 MG TAB PO (16:32)
[2018-04-07 17:10] LABS: BEDSIDE GLUCOSE 319 MG/DL (83-110)
[2018-04-07 20:36] LABS: BEDSIDE GLUCOSE 148 MG/DL (83-110)
[2018-04-07] MEDS: traZODone 50 MG TAB PO ×2 (20:45→20:50)
[2018-04-07] MEDS: MIRTAZAPINE 15 MG TAB PO (20:47)
[2018-04-07] MEDS: zolPIDEM TARTRATE 5 MG TAB PO (22:02)
[2018-04-08] MEDS: PERCOCET 5MG/325MG TAB PO ×3 (00:38→10:21)
[2018-04-08] MEDS: PIPERACILLIN/TAZOBACTAM SOD 2.25 GM in D5W MINI-BAG PLUS 50 ML IV ×2 (03:39→08:00)
[2018-04-08] MEDS: SLF 3 ML SYR IV (05:14)
[2018-04-08 05:52] LABS: BASO % 0.4 % (0.0-1.0); EOS % 0.2 % (0.0-3.0); HEMATOCRIT 31.4 % (42.0-52.0); HEMOGLOBIN 9.8 g/dl (13.5-17.5); IMMATURE GRANULOCYTE % 1.3 % (0-3.0); LYMPH # 1.3 10^3/uL (1.5-4.5); MEAN CORPUSCULAR HEMOGLOBIN 31.9 pg (27.0-33.0); MEAN CORPUSCULAR HGB CONC 31.2 g/dl (32.0-36.5); MEAN CORPUSCULAR VOLUME 102.3 fl (80.0-96.0); MONO # 0.6 10^3/uL (0.0-0.8); MONO % 10.1 % (0.0-5.0); NEUTROPHILS # 3.5 10^3/uL (1.8-7.7); PLATELET COUNT, AUTOMATED 268 10^3/uL (150-450); RED BLOOD COUNT 3.07 10^6/uL (4.30-6.10); RED CELL DISTRIBUTION WIDTH 23.5 % (11.5-14.5); WHITE BLOOD COUNT 5.5 10^3/uL (4.0-10.0)
[2018-04-08 06:00] LABS: INR 1.96; PROTHROMBIN TIME 22.7 SECONDS (12.1-14.4)
[2018-04-08 06:18] LABS: ANION GAP 4 MEQ/L (8-16); BLOOD UREA NITROGEN 70 MG/DL (7-18); CALCIUM LEVEL 8.3 MG/DL (8.8-10.2); CARBON DIOXIDE LEVEL 40 MEQ/L (21-32); CHLORIDE LEVEL 95 MEQ/L (98-107); CREATININE FOR GFR 1.89 MG/DL (0.70-1.30); GLOMERULAR FILTRATION RATE 37.5 (>42); GLUCOSE, FASTING 131 MG/DL (70-100); MAGNESIUM LEVEL 1.6 MG/DL (1.8-2.4); POTASSIUM SERUM 3.9 MEQ/L (3.5-5.1); SODIUM LEVEL 139 MEQ/L (136-145)
[2018-04-08] MEDS: MAG SULF 1GM/100ML (MAG RUN) 1 GM in APPROPRIATE DILUENT 1 EA IV ×2 (07:02→10:21)
[2018-04-08] MEDS: HumaLOG INSULIN (NovoLOG) PER UNIT SC (07:58)
[2018-04-08] MEDS: metOLazone 2.5 MG TAB PO (08:02)
[2018-04-08] MEDS: OMEPRAZOLE 20 MG CAP PO (08:03)
[2018-04-08] MEDS: oxyBUTYnin *DITROPAN XL* 5 MG TABCR PO (08:03)
[2018-04-08] MEDS: FLUoxetine 20 MG CAP PO (08:03)
[2018-04-08] MEDS: FERROUS GLUCONATE 324 MG TAB PO (08:03)
[2018-04-08] MEDS: TORSEMIDE 100 MG TAB PO (08:03)
[2018-04-08] MEDS: ATORVASTATIN 20 MG TAB PO (08:04)
[2018-04-08] MEDS: GABAPENTIN 300 MG CAP PO (08:04)
[2018-04-08] MEDS: ASPIRIN 81 MG ENTERIC TAB PO (08:04)
[2018-04-08] MEDS: TAMSULOSIN 0.4 MG CAP PO (08:04)
[2018-04-08] MEDS: MULTIVITAMINS/MINERALS THERAP 1 TAB PO (08:04)
[2018-04-08] MEDS: POTASSIUM CHLORIDE 10 MEQ SR TABLET PO (08:05)
[2018-04-08] MEDS: SPIRONOLACTONE 50 MG TAB PO (08:05)
[2018-04-08] MEDS: CYANOCOBALAMIN 500 MCG TAB PO (08:05)
[2018-04-08] MEDS: predniSONE 10 MG TAB PO (08:05)
[2018-04-08] MEDS: FEBUXOSTAT 40 MG TABLET (ULORIC) PO (08:06)
[2018-04-08] MEDS: CARVedilol 12.5 MG TAB PO (08:14)
[2018-04-08] MEDS: LOSARTAN 25 MG TAB PO (08:14)
[2018-04-08] MEDS: MAGNESIUM OXIDE 400 MG TAB (MAG-OX) PO (10:21)
[2018-04-08] MEDS ORDERED: WARFARIN SOD 5 MG TAB PO (17:00)
== END 2018-04-08 12:15 | disposition home health service (06) | DRG 291 ==
LOC: M ED 11:03 → M ED INP 13:59 → M PCU 17:52
PROC: 30233N1 Transfusion of Nonautologous Red Blood Cells into Peripheral Vein, Percutaneous Approach (ICD-10-PCS; principal; 2018-04-03)
DX: I13.0 Hypertensive heart and chronic kidney disease with heart failure and stage 1 through stage 4 chronic kidney disease, or unspecified chronic kidney disease (principal); I50.33 Acute on chronic diastolic (congestive) heart failure; N39.0 Urinary tract infection, site not specified; J96.11 Chronic respiratory failure with hypoxia; N04.2 Nephrotic syndrome with diffuse membranous glomerulonephritis; E87.2 Acidosis; N18.3 Chronic kidney disease, stage 3 (moderate); I48.91 Unspecified atrial fibrillation; E11.9 Type 2 diabetes mellitus without complications; D63.1 Anemia in chronic kidney disease; E78.5 Hyperlipidemia, unspecified; F32.9 Major depressive disorder, single episode, unspecified; Z79.82 Long term (current) use of aspirin; Z79.899 Other long term (current) drug therapy; Z86.718 Personal history of other venous thrombosis and embolism; Z86.711 Personal history of pulmonary embolism; R30.0 Dysuria; G47.00 Insomnia, unspecified; Z79.01 Long term (current) use of anticoagulants; Z79.52 Long term (current) use of systemic steroids; Z88.8 Allergy status to other drugs, medicaments and biological substances; J84.10 Pulmonary fibrosis, unspecified; Z87.891 Personal history of nicotine dependence; M10.9 Gout, unspecified; R04.0 Epistaxis; Z99.81 Dependence on supplemental oxygen

== ENCOUNTER 2018-04-13 10:17 | Inpatient (IN) | payer OTHER, MEDICARE ==
[2018-04-13 11:04] LABS: BEDSIDE GLUCOSE 105 MG/DL (83-110)
[2018-04-13 11:25] LABS: BASO % 0.3 % (0.0-1.0); EOS % 0.3 % (0.0-3.0); HEMATOCRIT 28.8 % (42.0-52.0); HEMOGLOBIN 9.4 g/dl (13.5-17.5); IMMATURE GRANULOCYTE % 0.9 % (0-3.0); LYMPH # 1.1 10^3/uL (1.5-4.5); LYMPH % 15.4 % (24.0-44.0); MEAN CORPUSCULAR HEMOGLOBIN 32.5 pg (27.0-33.0); MEAN CORPUSCULAR HGB CONC 32.6 g/dl (32.0-36.5); MEAN CORPUSCULAR VOLUME 99.7 fl (80.0-96.0); MONO # 1.2 10^3/uL (0.0-0.8); MONO % 17.5 % (0.0-5.0); NEUTROPHILS # 4.5 10^3/uL (1.8-7.7); NEUTROPHILS % 65.6 % (36.0-66.0); PLATELET COUNT, AUTOMATED 294 10^3/uL (150-450); RED BLOOD COUNT 2.89 10^6/uL (4.30-6.10); RED CELL DISTRIBUTION WIDTH 21.2 % (11.5-14.5); WHITE BLOOD COUNT 6.8 10^3/uL (4.0-10.0)
[2018-04-13 11:26] LABS: INR 2.99; PROTHROMBIN TIME 31.7 SECONDS (12.1-14.4)
[2018-04-13 12:34] LABS: LACTIC ACID SEPSIS PROTOCOL 1.2 MMOL/L (0.4-2.0)
[2018-04-13 12:35] LABS: AST/SGOT 17 U/L (7-37); BLOOD UREA NITROGEN 89 MG/DL (7-18); CALCIUM LEVEL 7.5 MG/DL (8.8-10.2); CARBON DIOXIDE LEVEL 31 MEQ/L (21-32); CHLORIDE LEVEL 89 MEQ/L (98-107); CREATININE FOR GFR 3.79 MG/DL (0.70-1.30); GLOMERULAR FILTRATION RATE 16.8 (>42); GLUCOSE, FASTING 100 MG/DL (70-100); POTASSIUM SERUM 4.1 MEQ/L (3.5-5.1); SODIUM LEVEL 131 MEQ/L (136-145)
[2018-04-13 12:36] LABS: ALBUMIN 2.1 GM/DL (3.2-5.2); ALBUMIN/GLOBULIN RATIO 0.58 (1.00-1.93); ALKALINE PHOSPHATASE 62 U/L (45-117); ALT/SGPT 19 U/L (12-78); BILIRUBIN,DIRECT 0.1 MG/DL (0.0-0.2); BILIRUBIN,TOTAL 0.3 MG/DL (0.2-1.0); CK-MB VALUE MASS 1.7 NG/ML (<3.6); CPK CREATINE PHOSPHOKINASE 22 U/L (39-308); LIPASE 57 U/L (73-393); TOTAL PROTEIN 5.7 GM/DL (6.4-8.2); TROPONIN I < 0.02 NG/ML (< 0.10)
[2018-04-13 12:38] LABS: GOLD SPEC TUBE RECIEVED
[2018-04-13 12:43] LABS: ANION GAP 11 MEQ/L (8-16)
[2018-04-13] MEDS: NORCO, ANEXSIA 5/325MG TABLET (HYDROcodone/ACETAMINOPHEN) PO ×2 (14:05→19:44)
[2018-04-13 14:34] LABS: MB/CK RELATIVE INDEX 7.72 (< OR =4)
[2018-04-13] MEDS ORDERED: FAMOTIDINE 20 MG TAB PO (15:00)
[2018-04-13] MEDS ORDERED: LACTIC ACID 12% LOTION 225 GM BTL TOP ×2 (15:00)
[2018-04-13] MEDS ORDERED: ALBUTEROL 90 MCG/ACT 8GM HFA INHALER INH (15:00)
[2018-04-13] MEDS ORDERED: traZODone 50 MG TAB PO (15:00)
[2018-04-13] MEDS: NS 500 ML IV (15:35)
[2018-04-13] MEDS: TAMSULOSIN 0.4 MG CAP PO (15:52)
[2018-04-13] MEDS: ATORVASTATIN 20 MG TAB PO (15:52)
[2018-04-13] MEDS: ACETAMINOPHEN TAB 650MG DOSE (2X325MG) PO (15:52)
[2018-04-13 15:58] LABS: APPEARANCE, URINE CLEAR (CLEAR); BACTERIA, URINE AUTO NEGATIVE (NEGATIVE); BILIRUBIN, URINE AUTO NEGATIVE (NEGATIVE); BLOOD, URINE BLOOD 1+ (NEGATIVE); COLOR, URINE YELLOW (YELLOW); GLUCOSE, URINE (UA) AUTO NEGATIVE (NEGATIVE); KETONE, URINE AUTO NEGATIVE (NEGATIVE); LEUKOCYTE ESTERASE, URINE AUTO 2+ (NEGATIVE); MUCUS, URINE SMALL (NEGATIVE); NITRITE, URINE AUTO NEGATIVE (NEGATIVE); PROTEIN, URINE AUTO NEGATIVE (NEGATIVE); RBC, URINE AUTO 0 /HPF (0-3); SPECIFIC GRAVITY URINE AUTO 1.009 (1.002-1.035); SQUAMOUS EPITHELIAL CELL UR AU 0 /HPF (0-6); UROBILINOGEN, URINE AUTO 0.2 mg/dL (0.0-2.0); WBC, URINE AUTO 36 /HPF (0-3); YEAST LIKE CELL URINE AUTO SMALL
[2018-04-13 16:14] LABS: IONIZED CALCIUM 3.8 MG/DL (4.5-5.3)
[2018-04-13 16:16] LABS: PHOSPHORUS LEVEL 7.9 MG/DL (2.5-4.9)
[2018-04-13] MEDS: CYANOCOBALAMIN 500 MCG TAB PO (16:24)
[2018-04-13] MEDS: FLUoxetine 20 MG CAP PO (16:24)
[2018-04-13] MEDS: predniSONE 10 MG TAB PO (16:24)
[2018-04-13] MEDS: MULTIVITAMINS/MINERALS THERAP 1 TAB PO (16:24)
[2018-04-13] MEDS: ASPIRIN 81 MG ENTERIC TAB PO ×2 (16:24→16:28)
[2018-04-13 16:27] LABS: SODIUM,RANDOM URINE 42 MEQ/L
[2018-04-13] MEDS: GABAPENTIN 300 MG CAP PO ×2 (16:29→21:37)
[2018-04-13] MEDS: WARFARIN SOD 5 MG TAB PO (18:02)
[2018-04-13] MEDS: VITAMIN D 50,000 UNITS CAPSULE (ERGOCALCIFEROL 1.25MG) PO (20:46)
[2018-04-13] MEDS: FEBUXOSTAT 40 MG TABLET (ULORIC) PO (20:55)
[2018-04-13] MEDS: oxyBUTYnin *DITROPAN XL* 5 MG TABCR PO (20:55)
[2018-04-13] MEDS: FERROUS GLUCONATE 324 MG TAB PO (21:37)
[2018-04-13] MEDS: MIRTAZAPINE 15 MG TAB PO (21:37)
[2018-04-13] MEDS: OMEPRAZOLE 20 MG CAP PO (21:37)
[2018-04-13] MEDS: zolPIDEM TARTRATE 5 MG TAB PO (21:40)
[2018-04-14] MEDS: ACETAMINOPHEN TAB 650MG DOSE (2X325MG) PO (02:39)
[2018-04-14 06:27] LABS: ALBUMIN 2.3 GM/DL (3.2-5.2); ALBUMIN/GLOBULIN RATIO 0.62 (1.00-1.93); ALKALINE PHOSPHATASE 63 U/L (45-117); ALT/SGPT 19 U/L (12-78); ANION GAP 8 MEQ/L (8-16); AST/SGOT 18 U/L (7-37); BILIRUBIN,TOTAL 0.3 MG/DL (0.2-1.0); BLOOD UREA NITROGEN 85 MG/DL (7-18); CALCIUM LEVEL 8.4 MG/DL (8.8-10.2); CARBON DIOXIDE LEVEL 31 MEQ/L (21-32); CHLORIDE LEVEL 94 MEQ/L (98-107); CREATININE FOR GFR 2.65 MG/DL (0.70-1.30); GLOMERULAR FILTRATION RATE 25.4 (>42); GLUCOSE, FASTING 127 MG/DL (70-100); POTASSIUM SERUM 4.4 MEQ/L (3.5-5.1); SODIUM LEVEL 133 MEQ/L (136-145)
[2018-04-14] MEDS: TAMSULOSIN 0.4 MG CAP PO (08:33)
[2018-04-14] MEDS: ATORVASTATIN 20 MG TAB PO (08:33)
[2018-04-14] MEDS: MULTIVITAMINS/MINERALS THERAP 1 TAB PO (08:34)
[2018-04-14] MEDS: FLUoxetine 20 MG CAP PO (08:34)
[2018-04-14] MEDS: FEBUXOSTAT 40 MG TABLET (ULORIC) PO (08:34)
[2018-04-14] MEDS: OMEPRAZOLE 20 MG CAP PO ×2 (08:34→20:53)
[2018-04-14] MEDS: FERROUS GLUCONATE 324 MG TAB PO ×2 (08:34→20:54)
[2018-04-14] MEDS: GABAPENTIN 300 MG CAP PO ×3 (08:34→20:53)
[2018-04-14] MEDS: oxyCODONE 5MG TAB PO ×4 (08:35→23:41)
[2018-04-14] MEDS: CYANOCOBALAMIN 500 MCG TAB PO (08:35)
[2018-04-14] MEDS: predniSONE 10 MG TAB PO (08:35)
[2018-04-14] MEDS: ASPIRIN 81 MG ENTERIC TAB PO (08:35)
[2018-04-14] MEDS: oxyBUTYnin *DITROPAN XL* 5 MG TABCR PO (08:35)
[2018-04-14] MEDS ORDERED: PILL CRUSHER/CUTTER 1 EACH XX (11:15)
[2018-04-14] MEDS: CARVedilol 3.125 MG TAB PO ×2 (11:30→20:54)
[2018-04-14 14:32] LABS: HEMOGLOBIN 9.8 g/dl (13.5-17.5); MEAN CORPUSCULAR HEMOGLOBIN 32.3 pg (27.0-33.0); MEAN CORPUSCULAR HGB CONC 32.7 g/dl (32.0-36.5); PLATELET COUNT, AUTOMATED 343 10^3/uL (150-450); RED BLOOD COUNT 3.03 10^6/uL (4.30-6.10); WHITE BLOOD COUNT 7.5 10^3/uL (4.0-10.0)
[2018-04-14] MEDS: WARFARIN SOD 5 MG TAB PO ×2 (16:40→18:18)
[2018-04-14 17:18] LABS: PROTHROMBIN TIME 47.7 SECONDS (12.1-14.4)
[2018-04-14 18:00] LABS: INR 4.99
[2018-04-14] MEDS: MIRTAZAPINE 15 MG TAB PO (20:53)
[2018-04-14] MEDS: zolPIDEM TARTRATE 5 MG TAB PO (23:42)
[2018-04-15] MEDS: oxyCODONE 5MG TAB PO ×2 (06:41→13:05)
[2018-04-15 07:02] LABS: HEMATOCRIT 30.4 % (42.0-52.0); HEMOGLOBIN 9.7 g/dl (13.5-17.5); MEAN CORPUSCULAR HEMOGLOBIN 32.6 pg (27.0-33.0); MEAN CORPUSCULAR HGB CONC 31.9 g/dl (32.0-36.5); PLATELET COUNT, AUTOMATED 345 10^3/uL (150-450); RED BLOOD COUNT 2.98 10^6/uL (4.30-6.10); WHITE BLOOD COUNT 6.5 10^3/uL (4.0-10.0)
[2018-04-15 07:22] LABS: ANION GAP 7 MEQ/L (8-16); BLOOD UREA NITROGEN 83 MG/DL (7-18); CALCIUM LEVEL 8.3 MG/DL (8.8-10.2); CARBON DIOXIDE LEVEL 35 MEQ/L (21-32); CHLORIDE LEVEL 96 MEQ/L (98-107); CREATININE FOR GFR 2.05 MG/DL (0.70-1.30); GLOMERULAR FILTRATION RATE 34.2 (>42); GLUCOSE, FASTING 101 MG/DL (70-100); SODIUM LEVEL 138 MEQ/L (136-145)
[2018-04-15 07:24] LABS: INR 3.52; PROTHROMBIN TIME 36.1 SECONDS (12.1-14.4)
[2018-04-15] MEDS: ATORVASTATIN 20 MG TAB PO (09:20)
[2018-04-15] MEDS: FEBUXOSTAT 40 MG TABLET (ULORIC) PO (09:21)
[2018-04-15] MEDS: CARVedilol 3.125 MG TAB PO (09:21)
[2018-04-15] MEDS: GABAPENTIN 300 MG CAP PO (09:22)
[2018-04-15] MEDS: CYANOCOBALAMIN 500 MCG TAB PO (09:22)
[2018-04-15] MEDS: TAMSULOSIN 0.4 MG CAP PO (09:22)
[2018-04-15] MEDS: FLUoxetine 20 MG CAP PO (09:22)
[2018-04-15] MEDS: FERROUS GLUCONATE 324 MG TAB PO (09:22)
[2018-04-15] MEDS: ASPIRIN 81 MG ENTERIC TAB PO (09:22)
[2018-04-15] MEDS: MULTIVITAMINS/MINERALS THERAP 1 TAB PO (09:22)
[2018-04-15] MEDS: OMEPRAZOLE 20 MG CAP PO (09:22)
[2018-04-15] MEDS: predniSONE 10 MG TAB PO (09:22)
[2018-04-15] MEDS: SPIRONOLACTONE 25 MG TAB PO (13:04)
[2018-04-15] MEDS: TORSEMIDE (DEMADEX) 50 MG PER 1/2 TAB PO (13:04)
[2018-04-15 13:08] LABS: TOTAL PROTEIN,RANDOM URINE 251.5 MG/DL (0.0-12.0)
== END 2018-04-15 14:35 | disposition home health service (06) | DRG 683 ==
LOC: M MS4PR 04-14 11:52 → M ED 10:17 → M ED INP 15:09 → M PCU 21:08
PROVIDERS: Internal Medicine
DX: N17.9 Acute kidney failure, unspecified (principal); I50.32 Chronic diastolic (congestive) heart failure; E87.1 Hypo-osmolality and hyponatremia; I11.0 Hypertensive heart disease with heart failure; T50.2X5A Adverse effect of carbonic-anhydrase inhibitors, benzothiadiazides and other diuretics, initial encounter; I48.91 Unspecified atrial fibrillation; N18.3 Chronic kidney disease, stage 3 (moderate); J84.10 Pulmonary fibrosis, unspecified; G47.00 Insomnia, unspecified; E83.51 Hypocalcemia; M10.30 Gout due to renal impairment, unspecified site; M32.13 Lung involvement in systemic lupus erythematosus; N40.1 Benign prostatic hyperplasia with lower urinary tract symptoms; D63.1 Anemia in chronic kidney disease; E11.9 Type 2 diabetes mellitus without complications; F32.9 Major depressive disorder, single episode, unspecified; M32.14 Glomerular disease in systemic lupus erythematosus; E78.5 Hyperlipidemia, unspecified; Z86.718 Personal history of other venous thrombosis and embolism; Z86.711 Personal history of pulmonary embolism; Z98.1 Arthrodesis status; Z87.891 Personal history of nicotine dependence; Z88.8 Allergy status to other drugs, medicaments and biological substances; Z79.82 Long term (current) use of aspirin; Z79.01 Long term (current) use of anticoagulants; Z79.51 Long term (current) use of inhaled steroids; Z79.899 Other long term (current) drug therapy; Z99.81 Dependence on supplemental oxygen

== ENCOUNTER 2018-05-05 04:22 | Inpatient (IN) | payer OTHER, MEDICARE ==
[2018-05-05] MEDS: FUROSEMIDE 40 MG/4 ML VIAL (J1940) IV (04:30)
[2018-05-05] MEDS: LORazepam 2 MG/ML VIAL (J2060) IV (04:35)
[2018-05-05] MEDS ORDERED: dexameTHASONE 20 MG/5 ML VIAL (J1100) As Ordered (04:40)
[2018-05-05] MEDS ORDERED: LORazepam 2 MG/ML VIAL (J2060) As Ordered (04:41)
[2018-05-05 04:48] LABS: ABG BASE EXCESS 1.8 (-2.0-2.0); ABG HCO3 26.4 MEQ/L (22.0-26.0); ABG PARTIAL PRESSURE CO2 41.3 mmHg (35.0-45.0); ABG PARTIAL PRESSURE O2 51.4 mmHg (75.0-100.0); ABG STANDARD HCO3 25.8 MEQ/L (22.0-26.0); ABG TOTAL CO2 27.6 MEQ/L (23.0-31.0); ABG pH (ARTERIAL) 7.423 UNITS (7.350-7.450)
[2018-05-05 04:58] LABS: BASO # 0.1 10^3/uL (0.0-0.2); BASO % 0.4 % (0.0-1.0); EOS # 0.1 10^3/uL (0.0-0.50); EOS % 0.6 % (0.0-3.0); HEMATOCRIT 31.9 % (42.0-52.0); HEMOGLOBIN 9.9 g/dl (13.5-17.5); IMMATURE GRANULOCYTE % 1.6 % (0-3.0); LYMPH # 3.9 10^3/uL (1.5-4.5); LYMPH % 15.6 % (24.0-44.0); MEAN CORPUSCULAR HEMOGLOBIN 33.1 pg (27.0-33.0); MEAN CORPUSCULAR VOLUME 106.7 fl (80.0-96.0); NEUTROPHILS # 18.4 10^3/uL (1.8-7.7); NEUTROPHILS % 72.8 % (36.0-66.0); PLATELET COUNT, AUTOMATED 223 10^3/uL (150-450); RED BLOOD COUNT 2.99 10^6/uL (4.30-6.10); RED CELL DISTRIBUTION WIDTH 19.9 % (11.5-14.5); WHITE BLOOD COUNT 25.3 10^3/uL (4.0-10.0)
[2018-05-05 05:18] LABS: MONO # 2.3 10^3/uL (0.0-0.8); POSITIVE DIFF POS FLAG
[2018-05-05 05:33] LABS: LACTIC ACID SEPSIS PROTOCOL 5.8 MMOL/L (0.4-2.0)
[2018-05-05 05:50] LABS: ANION GAP 10 MEQ/L (8-16); BLOOD UREA NITROGEN 41 MG/DL (7-18); CALCIUM LEVEL 8.4 MG/DL (8.8-10.2); CARBON DIOXIDE LEVEL 29 MEQ/L (21-32); CHLORIDE LEVEL 102 MEQ/L (98-107); CPK CREATINE PHOSPHOKINASE 21 U/L (39-308); CREATININE FOR GFR 1.31 MG/DL (0.70-1.30); GLOMERULAR FILTRATION RATE 57.3 (>42); GLUCOSE, FASTING 187 MG/DL (70-100); NT-PRO BNP 8011 PG/ML (<125); POTASSIUM SERUM 4.1 MEQ/L (3.5-5.1); SODIUM LEVEL 141 MEQ/L (136-145); TROPONIN I 0.02 NG/ML (< 0.10)
[2018-05-05] MEDS: PIPERACILLIN/TAZOBACTAM SOD 4.5 GM in D5W MINI-BAG PLUS 50 ML IV (06:00)
[2018-05-05] MEDS: ACETAMINOPHEN TAB 650MG DOSE (2X325MG) PO (06:00)
[2018-05-05 06:08] LABS: INR 3.27; PROTHROMBIN TIME 34.1 SECONDS (12.1-14.4)
[2018-05-05 06:09] LABS: APPEARANCE, URINE CLEAR (CLEAR); BACTERIA, URINE AUTO 1+ (NEGATIVE); BILIRUBIN, URINE AUTO NEGATIVE (NEGATIVE); BLOOD, URINE BLOOD 2+ (NEGATIVE); COLOR, URINE YELLOW (YELLOW); GLUCOSE, URINE (UA) AUTO NEGATIVE (NEGATIVE); KETONE, URINE AUTO NEGATIVE (NEGATIVE); LEUKOCYTE ESTERASE, URINE AUTO NEGATIVE (NEGATIVE); MUCUS, URINE SMALL (NEGATIVE); NITRITE, URINE AUTO NEGATIVE (NEGATIVE); PARTIAL THROMBOPLASTIN TIME 40.6 SECONDS (25.4-37.6); PROTEIN, URINE AUTO 2+ mg/dL (NEGATIVE); RBC, URINE AUTO 15 /HPF (0-3); SQUAMOUS EPITHELIAL CELL UR AU 0 /HPF (0-6); UROBILINOGEN, URINE AUTO 0.2 mg/dL (0.0-2.0); WBC, URINE AUTO 2 /HPF (0-3)
[2018-05-05 06:12] LABS: AMYLASE 41 U/L (25-115); C REACTIVE PROTEIN QUANTITATIV 2.65 MG/DL (0.00-0.30)
[2018-05-05 06:19] LABS: ABG BASE EXCESS 7.8 (-2.0-2.0); ABG HCO3 32.1 MEQ/L (22.0-26.0); ABG O2 SATURATION 97.6 % (95.0-99.0); ABG PARTIAL PRESSURE CO2 44.3 mmHg (35.0-45.0); ABG PARTIAL PRESSURE O2 98.8 mmHg (75.0-100.0); ABG STANDARD HCO3 31.6 MEQ/L (22.0-26.0); ABG TOTAL CO2 33.5 MEQ/L (23.0-31.0); ABG pH (ARTERIAL) 7.478 UNITS (7.350-7.450)
[2018-05-05] MEDS ORDERED: traZODone 50 MG TAB PO (09:30)
[2018-05-05] MEDS ORDERED: FAMOTIDINE 20 MG TAB PO (09:30)
[2018-05-05] MEDS: GABAPENTIN 300 MG CAP PO ×3 (09:57→20:15)
[2018-05-05] MEDS: OMEPRAZOLE 20 MG CAP PO ×2 (09:57→20:15)
[2018-05-05] MEDS: ATORVASTATIN 20 MG TAB PO (09:57)
[2018-05-05] MEDS: MULTIVITAMINS/MINERALS THERAP 1 TAB PO (09:57)
[2018-05-05] MEDS: CYANOCOBALAMIN 500 MCG TAB PO (09:57)
[2018-05-05] MEDS: ASPIRIN 81 MG ENTERIC TAB PO (09:58)
[2018-05-05] MEDS: TAMSULOSIN 0.4 MG CAP PO (09:58)
[2018-05-05] MEDS: FLUoxetine 20 MG CAP PO (09:59)
[2018-05-05] MEDS: LOSARTAN 25 MG TAB PO (10:56)
[2018-05-05] MEDS: SPIRONOLACTONE 25 MG TAB PO (10:56)
[2018-05-05 11:01] LABS: BEDSIDE GLUCOSE 190 MG/DL (83-110)
[2018-05-05 11:45] LABS: MAGNESIUM LEVEL 1.6 MG/DL (1.8-2.4)
[2018-05-05] MEDS ORDERED: GLUCAGON FOR INJ 1 MG VIAL (J1610) SC (11:45)
[2018-05-05] MEDS ORDERED: GLUCOSE 4 GM CHEW TABLET PO (11:45)
[2018-05-05] MEDS ORDERED: DEXTROSE 50% 50 ML SYRINGE IV (11:45)
[2018-05-05] MEDS: HumaLOG INSULIN (NovoLOG) PER UNIT SC ×3 (12:00→20:33)
[2018-05-05 12:21] LABS: BEDSIDE GLUCOSE 160 MG/DL (83-110)
[2018-05-05] MEDS: PIPERACILLIN/TAZOBACTAM SOD 3.375 GM in D5W MINI-BAG PLUS 50 ML IV ×3 (12:39→23:25)
[2018-05-05] MEDS: metOLazone 2.5 MG TAB PO ×2 (13:56→20:15)
[2018-05-05] MEDS: oxyBUTYnin *DITROPAN XL* 5 MG TABCR PO (13:56)
[2018-05-05] MEDS: FEBUXOSTAT 40 MG TABLET (ULORIC) PO (13:57)
[2018-05-05] MEDS: FERROUS GLUCONATE 324 MG TAB PO ×2 (13:57→20:15)
[2018-05-05 15:35] LABS: ABG BASE EXCESS 5.7 (-2.0-2.0); ABG O2 SATURATION 96.1 % (95.0-99.0); ABG PARTIAL PRESSURE CO2 37.2 mmHg (35.0-45.0); ABG PARTIAL PRESSURE O2 81.7 mmHg (75.0-100.0); ABG STANDARD HCO3 29.6 MEQ/L (22.0-26.0); ABG TOTAL CO2 30.2 MEQ/L (23.0-31.0)
[2018-05-05] MEDS: WARFARIN SOD 3 MG TAB PO ×2 (16:35→17:00)
[2018-05-05] MEDS: PERCOCET 5MG/325MG TAB PO (16:35)
[2018-05-05 16:40] LABS: BEDSIDE GLUCOSE 129 MG/DL (83-110)
[2018-05-05] MEDS: MIRTAZAPINE 15 MG TAB PO (20:15)
[2018-05-05 20:31] LABS: BEDSIDE GLUCOSE 132 MG/DL (83-110)
[2018-05-06] MEDS: zolPIDEM TARTRATE 5 MG TAB PO
[2018-05-06] MEDS: PERCOCET 5MG/325MG TAB PO ×4 (00:01→22:30)
[2018-05-06] MEDS: PIPERACILLIN/TAZOBACTAM SOD 3.375 GM in D5W MINI-BAG PLUS 50 ML IV ×3 (05:07→18:31)
[2018-05-06 05:10] LABS: HEMOGLOBIN 8.3 g/dl (13.5-17.5); MEAN CORPUSCULAR HEMOGLOBIN 33.1 pg (27.0-33.0); MEAN CORPUSCULAR HGB CONC 31.9 g/dl (32.0-36.5); MEAN CORPUSCULAR VOLUME 103.6 fl (80.0-96.0); PLATELET COUNT, AUTOMATED 148 10^3/uL (150-450); RED BLOOD COUNT 2.51 10^6/uL (4.30-6.10); RED CELL DISTRIBUTION WIDTH 19.7 % (11.5-14.5); WHITE BLOOD COUNT 12.2 10^3/uL (4.0-10.0)
[2018-05-06 05:25] LABS: INR 2.87; PROTHROMBIN TIME 30.7 SECONDS (12.1-14.4)
[2018-05-06 05:32] LABS: ANION GAP 5 MEQ/L (8-16); BLOOD UREA NITROGEN 45 MG/DL (7-18); CARBON DIOXIDE LEVEL 35 MEQ/L (21-32); CHLORIDE LEVEL 102 MEQ/L (98-107); CREATININE FOR GFR 1.24 MG/DL (0.70-1.30); GLOMERULAR FILTRATION RATE > 60.0 (>42); GLUCOSE, FASTING 108 MG/DL (70-100); POTASSIUM SERUM 4.3 MEQ/L (3.5-5.1); SODIUM LEVEL 142 MEQ/L (136-145)
[2018-05-06] MEDS: CYANOCOBALAMIN 500 MCG TAB PO (08:14)
[2018-05-06] MEDS: MULTIVITAMINS/MINERALS THERAP 1 TAB PO (08:15)
[2018-05-06] MEDS: oxyBUTYnin *DITROPAN XL* 5 MG TABCR PO (08:15)
[2018-05-06] MEDS: GABAPENTIN 300 MG CAP PO ×3 (08:15→20:22)
[2018-05-06] MEDS: FEBUXOSTAT 40 MG TABLET (ULORIC) PO (08:15)
[2018-05-06] MEDS: FLUoxetine 20 MG CAP PO (08:17)
[2018-05-06] MEDS: OMEPRAZOLE 20 MG CAP PO ×2 (08:17→20:22)
[2018-05-06] MEDS: metOLazone 2.5 MG TAB PO (08:17)
[2018-05-06] MEDS: ASPIRIN 81 MG ENTERIC TAB PO (08:17)
[2018-05-06] MEDS: TAMSULOSIN 0.4 MG CAP PO (08:17)
[2018-05-06] MEDS: FERROUS GLUCONATE 324 MG TAB PO ×2 (08:18→20:22)
[2018-05-06] MEDS: ATORVASTATIN 20 MG TAB PO (08:18)
[2018-05-06] MEDS: HumaLOG INSULIN (NovoLOG) PER UNIT SC ×4 (08:23→20:17)
[2018-05-06 11:19] LABS: BEDSIDE GLUCOSE 83 MG/DL (83-110)
[2018-05-06] MEDS: SPIRONOLACTONE 25 MG TAB PO (11:25)
[2018-05-06] MEDS: TORSEMIDE (DEMADEX) 50 MG PER 1/2 TAB PO (11:25)
[2018-05-06] MEDS: LOSARTAN 25 MG TAB PO (11:26)
[2018-05-06] MEDS: WARFARIN SOD 3 MG TAB PO (16:13)
[2018-05-06 16:54] LABS: BEDSIDE GLUCOSE 131 MG/DL (83-110)
[2018-05-06 19:37] LABS: ABG BASE EXCESS 4.7 (-2.0-2.0); ABG HCO3 31.2 MEQ/L (22.0-26.0); ABG O2 SATURATION 95.4 % (95.0-99.0); ABG PARTIAL PRESSURE CO2 58.3 mmHg (35.0-45.0); ABG PARTIAL PRESSURE O2 90.3 mmHg (75.0-100.0); ABG STANDARD HCO3 28.6 MEQ/L (22.0-26.0); ABG pH (ARTERIAL) 7.347 UNITS (7.350-7.450)
[2018-05-06 20:19] LABS: BEDSIDE GLUCOSE 153 MG/DL (83-110)
[2018-05-06] MEDS: NS 1,000 ML IV (20:21)
[2018-05-06] MEDS: MIRTAZAPINE 15 MG TAB PO (20:22)
[2018-05-07] MEDS: PIPERACILLIN/TAZOBACTAM SOD 3.375 GM in D5W MINI-BAG PLUS 50 ML IV ×4 (00:36→17:33)
[2018-05-07] MEDS: PERCOCET 5MG/325MG TAB PO ×3 (05:02→21:04)
[2018-05-07 07:08] LABS: C REACTIVE PROTEIN QUANTITATIV 2.87 MG/DL (0.00-0.30)
[2018-05-07 07:43] LABS: BEDSIDE GLUCOSE 100 MG/DL (83-110)
[2018-05-07] MEDS: HumaLOG INSULIN (NovoLOG) PER UNIT SC ×4 (07:43→20:59)
[2018-05-07] MEDS: TAMSULOSIN 0.4 MG CAP PO (08:10)
[2018-05-07] MEDS: TORSEMIDE (DEMADEX) 50 MG PER 1/2 TAB PO (08:10)
[2018-05-07] MEDS: FEBUXOSTAT 40 MG TABLET (ULORIC) PO (08:10)
[2018-05-07] MEDS: CYANOCOBALAMIN 500 MCG TAB PO (08:10)
[2018-05-07] MEDS: OMEPRAZOLE 20 MG CAP PO ×2 (08:10→20:59)
[2018-05-07] MEDS: FLUoxetine 20 MG CAP PO (08:10)
[2018-05-07] MEDS: GABAPENTIN 300 MG CAP PO ×3 (08:10→20:59)
[2018-05-07] MEDS: ATORVASTATIN 20 MG TAB PO (08:11)
[2018-05-07] MEDS: FERROUS GLUCONATE 324 MG TAB PO ×2 (08:11→20:59)
[2018-05-07] MEDS: LOSARTAN 25 MG TAB PO (08:11)
[2018-05-07] MEDS: SPIRONOLACTONE 25 MG TAB PO (08:11)
[2018-05-07] MEDS: MULTIVITAMINS/MINERALS THERAP 1 TAB PO (08:11)
[2018-05-07] MEDS: ASPIRIN 81 MG ENTERIC TAB PO (08:11)
[2018-05-07] MEDS: oxyBUTYnin *DITROPAN XL* 5 MG TABCR PO (08:11)
[2018-05-07 10:03] LABS: ANION GAP 8 MEQ/L (8-16); BLOOD UREA NITROGEN 50 MG/DL (7-18); CALCIUM LEVEL 7.8 MG/DL (8.8-10.2); CARBON DIOXIDE LEVEL 33 MEQ/L (21-32); CHLORIDE LEVEL 97 MEQ/L (98-107); CREATININE FOR GFR 1.64 MG/DL (0.70-1.30); GLOMERULAR FILTRATION RATE 44.2 (>42); GLUCOSE, FASTING 139 MG/DL (70-100); POTASSIUM SERUM 3.5 MEQ/L (3.5-5.1); SODIUM LEVEL 138 MEQ/L (136-145)
[2018-05-07 10:56] LABS: HEMATOCRIT 25.7 % (42.0-52.0); HEMOGLOBIN 7.8 g/dl (13.5-17.5); MEAN CORPUSCULAR HEMOGLOBIN 32.9 pg (27.0-33.0); MEAN CORPUSCULAR HGB CONC 30.4 g/dl (32.0-36.5); MEAN CORPUSCULAR VOLUME 108.4 fl (80.0-96.0); PLATELET COUNT, AUTOMATED 154 10^3/uL (150-450); RED BLOOD COUNT 2.37 10^6/uL (4.30-6.10); RED CELL DISTRIBUTION WIDTH 19.8 % (11.5-14.5); WHITE BLOOD COUNT 11.1 10^3/uL (4.0-10.0)
[2018-05-07 11:52] LABS: BEDSIDE GLUCOSE 127 MG/DL (83-110)
[2018-05-07 14:45] LABS: HEMATOCRIT 27.7 % (42.0-52.0); HEMOGLOBIN 8.6 g/dl (13.5-17.5); MEAN CORPUSCULAR HEMOGLOBIN 33.2 pg (27.0-33.0); MEAN CORPUSCULAR VOLUME 106.9 fl (80.0-96.0); PLATELET COUNT, AUTOMATED 153 10^3/uL (150-450); RED BLOOD COUNT 2.59 10^6/uL (4.30-6.10); RED CELL DISTRIBUTION WIDTH 19.4 % (11.5-14.5); WHITE BLOOD COUNT 13.5 10^3/uL (4.0-10.0)
[2018-05-07 14:56] LABS: INR 2.97; PROTHROMBIN TIME 31.6 SECONDS (12.1-14.4)
[2018-05-07 16:59] LABS: BEDSIDE GLUCOSE 117 MG/DL (83-110)
[2018-05-07] MEDS: WARFARIN SOD 3 MG TAB PO (17:33)
[2018-05-07 20:58] LABS: BEDSIDE GLUCOSE 109 MG/DL (83-110)
[2018-05-07] MEDS: MIRTAZAPINE 15 MG TAB PO (20:59)
[2018-05-08] MEDS: PIPERACILLIN/TAZOBACTAM SOD 3.375 GM in D5W MINI-BAG PLUS 50 ML IV ×2 (00:22→05:42)
[2018-05-08] MEDS: ACETAMINOPHEN TAB 650MG DOSE (2X325MG) PO ×2 (02:24→11:30)
[2018-05-08 02:29] LABS: BEDSIDE GLUCOSE 135 MG/DL (83-110)
[2018-05-08] MEDS: PERCOCET 5MG/325MG TAB PO ×3 (05:42→21:25)
[2018-05-08 07:17] LABS: INR 2.84; PROTHROMBIN TIME 30.4 SECONDS (12.1-14.4)
[2018-05-08 07:29] LABS: C REACTIVE PROTEIN QUANTITATIV 5.53 MG/DL (0.00-0.30)
[2018-05-08] MEDS: HumaLOG INSULIN (NovoLOG) PER UNIT SC ×4 (08:38→21:00)
[2018-05-08] MEDS: FLUoxetine 20 MG CAP PO (08:38)
[2018-05-08] MEDS: FEBUXOSTAT 40 MG TABLET (ULORIC) PO (08:38)
[2018-05-08] MEDS: GABAPENTIN 300 MG CAP PO ×3 (08:39→21:25)
[2018-05-08] MEDS: MULTIVITAMINS/MINERALS THERAP 1 TAB PO (08:39)
[2018-05-08] MEDS: oxyBUTYnin *DITROPAN XL* 5 MG TABCR PO (08:39)
[2018-05-08] MEDS: FERROUS GLUCONATE 324 MG TAB PO ×2 (08:39→21:25)
[2018-05-08] MEDS: CYANOCOBALAMIN 500 MCG TAB PO (08:39)
[2018-05-08] MEDS: TAMSULOSIN 0.4 MG CAP PO (08:39)
[2018-05-08] MEDS: OMEPRAZOLE 20 MG CAP PO ×2 (08:39→21:25)
[2018-05-08] MEDS: ATORVASTATIN 20 MG TAB PO (08:39)
[2018-05-08] MEDS: ASPIRIN 81 MG ENTERIC TAB PO (08:39)
[2018-05-08] MEDS: LOSARTAN 25 MG TAB PO (08:40)
[2018-05-08] MEDS: CARVedilol 12.5 MG TAB PO ×2 (09:00→21:00)
[2018-05-08] MEDS ORDERED: TORSEMIDE 20 MG TAB PO (09:00)
[2018-05-08 10:08] LABS: BASO % 0.3 % (0.0-1.0); EOS # 0.1 10^3/uL (0.0-0.50); EOS % 1.2 % (0.0-3.0); HEMATOCRIT 27.6 % (42.0-52.0); HEMOGLOBIN 8.5 g/dl (13.5-17.5); IMMATURE GRANULOCYTE % 0.6 % (0-3.0); LYMPH # 1.3 10^3/uL (1.5-4.5); LYMPH % 10.5 % (24.0-44.0); MEAN CORPUSCULAR HEMOGLOBIN 32.8 pg (27.0-33.0); MEAN CORPUSCULAR HGB CONC 30.8 g/dl (32.0-36.5); MEAN CORPUSCULAR VOLUME 106.6 fl (80.0-96.0); MONO # 1.6 10^3/uL (0.0-0.8); MONO % 13.2 % (0.0-5.0); NEUTROPHILS # 8.9 10^3/uL (1.8-7.7); NEUTROPHILS % 74.2 % (36.0-66.0); PLATELET COUNT, AUTOMATED 165 10^3/uL (150-450); RED BLOOD COUNT 2.59 10^6/uL (4.30-6.10)
[2018-05-08 10:21] LABS: ALBUMIN 2.4 GM/DL (3.2-5.2); ALBUMIN/GLOBULIN RATIO 0.71 (1.00-1.93); ALKALINE PHOSPHATASE 51 U/L (45-117); ALT/SGPT 20 U/L (12-78); ANION GAP 8 MEQ/L (8-16); AST/SGOT 15 U/L (7-37); BILIRUBIN,TOTAL 0.4 MG/DL (0.2-1.0); BLOOD UREA NITROGEN 57 MG/DL (7-18); CARBON DIOXIDE LEVEL 32 MEQ/L (21-32); CHLORIDE LEVEL 94 MEQ/L (98-107); CREATININE FOR GFR 2.02 MG/DL (0.70-1.30); GLOMERULAR FILTRATION RATE 34.7 (>42); GLUCOSE, FASTING 91 MG/DL (70-100); POTASSIUM SERUM 3.6 MEQ/L (3.5-5.1); SODIUM LEVEL 134 MEQ/L (136-145); TOTAL PROTEIN 5.8 GM/DL (6.4-8.2)
[2018-05-08 11:31] LABS: BEDSIDE GLUCOSE 81 MG/DL (83-110)
[2018-05-08] MEDS ORDERED: PIPERACILLIN/TAZOBACTAM SOD 2.25 GM in D5W MINI-BAG PLUS 50 ML IV (12:00)
[2018-05-08] MEDS: PIPERACILLIN/TAZOBACTAM SOD 2.25 GM in D5W MINI-BAG PLUS 50 ML IV ×2 (13:12→18:04)
[2018-05-08 16:33] LABS: BEDSIDE GLUCOSE 138 MG/DL (83-110)
[2018-05-08] MEDS: WARFARIN SOD 3 MG TAB PO (16:54)
[2018-05-08 20:24] LABS: BEDSIDE GLUCOSE 57 MG/DL (83-110)
[2018-05-08 20:27] LABS: BEDSIDE GLUCOSE 114 MG/DL (83-110)
[2018-05-08] MEDS: MIRTAZAPINE 15 MG TAB PO (21:25)
[2018-05-09] MEDS: PIPERACILLIN/TAZOBACTAM SOD 2.25 GM in D5W MINI-BAG PLUS 50 ML IV ×2 (00:15→05:44)
[2018-05-09 06:02] LABS: BASO % 0.4 % (0.0-1.0); EOS # 0.1 10^3/uL (0.0-0.50); EOS % 1.2 % (0.0-3.0); HEMATOCRIT 25.7 % (42.0-52.0); HEMOGLOBIN 7.9 g/dl (13.5-17.5); IMMATURE GRANULOCYTE % 0.5 % (0-3.0); LYMPH # 1.3 10^3/uL (1.5-4.5); LYMPH % 13.5 % (24.0-44.0); MEAN CORPUSCULAR HGB CONC 30.7 g/dl (32.0-36.5); MONO # 1.4 10^3/uL (0.0-0.8); MONO % 14.3 % (0.0-5.0); NEUTROPHILS # 6.6 10^3/uL (1.8-7.7); NEUTROPHILS % 70.1 % (36.0-66.0); PLATELET COUNT, AUTOMATED 136 10^3/uL (150-450); RED BLOOD COUNT 2.47 10^6/uL (4.30-6.10); RED CELL DISTRIBUTION WIDTH 18.5 % (11.5-14.5); WHITE BLOOD COUNT 9.4 10^3/uL (4.0-10.0)
[2018-05-09 06:11] LABS: BEDSIDE GLUCOSE 91 MG/DL (83-110)
[2018-05-09 06:23] LABS: ANION GAP 4 MEQ/L (8-16); BLOOD UREA NITROGEN 66 MG/DL (7-18); CALCIUM LEVEL 7.7 MG/DL (8.8-10.2); CARBON DIOXIDE LEVEL 34 MEQ/L (21-32); CHLORIDE LEVEL 95 MEQ/L (98-107); CREATININE FOR GFR 2.69 MG/DL (0.70-1.30); GLUCOSE, FASTING 85 MG/DL (70-100); POTASSIUM SERUM 3.7 MEQ/L (3.5-5.1); SODIUM LEVEL 133 MEQ/L (136-145)
[2018-05-09 06:25] LABS: INR 2.42; PROTHROMBIN TIME 26.9 SECONDS (12.1-14.4)
[2018-05-09] MEDS: HumaLOG INSULIN (NovoLOG) PER UNIT SC ×4 (07:30→21:00)
[2018-05-09] MEDS ORDERED: MEROPENEM INJ 0.5 GM in APPROPRIATE DILUENT 1 EA IV (08:30)
[2018-05-09 08:39] LABS: ABG BASE EXCESS 4.3 (-2.0-2.0); ABG O2 SATURATION 94.1 % (95.0-99.0); ABG PARTIAL PRESSURE CO2 52.2 mmHg (35.0-45.0); ABG PARTIAL PRESSURE O2 71.3 mmHg (75.0-100.0); ABG STANDARD HCO3 28.3 MEQ/L (22.0-26.0); ABG TOTAL CO2 31.7 MEQ/L (23.0-31.0); ABG pH (ARTERIAL) 7.378 UNITS (7.350-7.450)
[2018-05-09] MEDS: GABAPENTIN 300 MG CAP PO (09:00)
[2018-05-09] MEDS: CARVedilol 12.5 MG TAB PO ×2 (09:00→21:00)
[2018-05-09] MEDS: MEROPENEM INJ 500 MG in APPROPRIATE DILUENT 1 EA IV ×2 (09:56→21:58)
[2018-05-09] MEDS: OMEPRAZOLE 20 MG CAP PO ×2 (09:56→21:57)
[2018-05-09] MEDS: FUROSEMIDE 100 MG/10 ML VIAL (J1940) IV ×2 (09:57→17:32)
[2018-05-09] MEDS: FEBUXOSTAT 40 MG TABLET (ULORIC) PO (09:57)
[2018-05-09] MEDS: POTASSIUM CHLORIDE 10 MEQ SR TABLET PO (09:57)
[2018-05-09] MEDS: MULTIVITAMINS/MINERALS THERAP 1 TAB PO (09:57)
[2018-05-09] MEDS: ATORVASTATIN 20 MG TAB PO (09:58)
[2018-05-09] MEDS: FLUoxetine 20 MG CAP PO (09:58)
[2018-05-09] MEDS: CYANOCOBALAMIN 500 MCG TAB PO (09:58)
[2018-05-09] MEDS: TAMSULOSIN 0.4 MG CAP PO (09:58)
[2018-05-09] MEDS: FERROUS GLUCONATE 324 MG TAB PO ×2 (09:58→21:56)
[2018-05-09] MEDS: ASPIRIN 81 MG ENTERIC TAB PO (09:59)
[2018-05-09] MEDS: oxyBUTYnin *DITROPAN XL* 5 MG TABCR PO (10:06)
[2018-05-09 11:19] LABS: AMMONIA 18 uMOL/L (<32)
[2018-05-09 11:22] LABS: ALBUMIN/GLOBULIN RATIO 0.49 (1.00-1.93); ALKALINE PHOSPHATASE 51 U/L (45-117); ALT/SGPT 20 U/L (12-78); ANION GAP 7 MEQ/L (8-16); AST/SGOT 17 U/L (7-37); BILIRUBIN,TOTAL 0.4 MG/DL (0.2-1.0); BLOOD UREA NITROGEN 63 MG/DL (7-18); CALCIUM LEVEL 7.7 MG/DL (8.8-10.2); CARBON DIOXIDE LEVEL 31 MEQ/L (21-32); CHLORIDE LEVEL 94 MEQ/L (98-107); CREATININE FOR GFR 2.57 MG/DL (0.70-1.30); GLOMERULAR FILTRATION RATE 26.3 (>42); GLUCOSE, FASTING 89 MG/DL (70-100); POTASSIUM SERUM 3.7 MEQ/L (3.5-5.1); SODIUM LEVEL 132 MEQ/L (136-145); TOTAL PROTEIN 6.1 GM/DL (6.4-8.2)
[2018-05-09 11:31] LABS: BEDSIDE GLUCOSE 107 MG/DL (83-110)
[2018-05-09] MEDS ORDERED: SLF 3 ML SYR IV (12:15)
[2018-05-09] MEDS: SLF 3 ML SYR IV ×2 (13:40→21:58)
[2018-05-09] MEDS: PERCOCET 5MG/325MG TAB PO (13:40)
[2018-05-09 16:48] LABS: BEDSIDE GLUCOSE 86 MG/DL (83-110)
[2018-05-09] MEDS: WARFARIN SOD 3 MG TAB PO (17:32)
[2018-05-09 20:37] LABS: BEDSIDE GLUCOSE 95 MG/DL (83-110)
[2018-05-09] MEDS: MIRTAZAPINE 15 MG TAB PO (21:56)
[2018-05-10] MEDS: FUROSEMIDE 100 MG/10 ML VIAL (J1940) IV ×3 (01:22→19:04)
[2018-05-10] MEDS: PERCOCET 5MG/325MG TAB PO ×2 (03:33→17:40)
[2018-05-10 05:27] LABS: BASO % 0.4 % (0.0-1.0); EOS # 0.1 10^3/uL (0.0-0.50); EOS % 1.6 % (0.0-3.0); HEMATOCRIT 24.4 % (42.0-52.0); HEMOGLOBIN 7.9 g/dl (13.5-17.5); IMMATURE GRANULOCYTE % 0.4 % (0-3.0); LYMPH # 0.7 10^3/uL (1.5-4.5); LYMPH % 8.3 % (24.0-44.0); MEAN CORPUSCULAR HEMOGLOBIN 32.6 pg (27.0-33.0); MEAN CORPUSCULAR HGB CONC 32.4 g/dl (32.0-36.5); MEAN CORPUSCULAR VOLUME 100.8 fl (80.0-96.0); MONO # 1.1 10^3/uL (0.0-0.8); MONO % 13.7 % (0.0-5.0); NEUTROPHILS % 75.6 % (36.0-66.0); PLATELET COUNT, AUTOMATED 152 10^3/uL (150-450); RED BLOOD COUNT 2.42 10^6/uL (4.30-6.10); WHITE BLOOD COUNT 7.9 10^3/uL (4.0-10.0)
[2018-05-10 05:37] LABS: INR 2.29; PROTHROMBIN TIME 25.7 SECONDS (12.1-14.4)
[2018-05-10] MEDS: SLF 3 ML SYR IV ×3 (06:00→22:00)
[2018-05-10 06:21] LABS: ANION GAP 8 MEQ/L (8-16); BLOOD UREA NITROGEN 64 MG/DL (7-18); CALCIUM LEVEL 8.8 MG/DL (8.8-10.2); CARBON DIOXIDE LEVEL 31 MEQ/L (21-32); CHLORIDE LEVEL 98 MEQ/L (98-107); CREATININE FOR GFR 1.84 MG/DL (0.70-1.30); GLOMERULAR FILTRATION RATE 38.7 (>42); GLUCOSE, FASTING 81 MG/DL (70-100); POTASSIUM SERUM 3.3 MEQ/L (3.5-5.1); SODIUM LEVEL 137 MEQ/L (136-145)
[2018-05-10] MEDS: POTASSIUM CHLORIDE 10 MEQ SR TABLET PO ×3 (07:03→20:13)
[2018-05-10] MEDS: HumaLOG INSULIN (NovoLOG) PER UNIT SC ×4 (08:19→20:13)
[2018-05-10] MEDS: oxyBUTYnin *DITROPAN XL* 5 MG TABCR PO (09:40)
[2018-05-10] MEDS: FEBUXOSTAT 40 MG TABLET (ULORIC) PO (09:40)
[2018-05-10] MEDS: FLUoxetine 20 MG CAP PO (09:40)
[2018-05-10] MEDS: CYANOCOBALAMIN 500 MCG TAB PO (09:40)
[2018-05-10] MEDS: OMEPRAZOLE 20 MG CAP PO ×2 (09:40→20:12)
[2018-05-10] MEDS: FERROUS GLUCONATE 324 MG TAB PO ×2 (09:41→20:13)
[2018-05-10] MEDS: MEROPENEM INJ 500 MG in APPROPRIATE DILUENT 1 EA IV ×2 (09:41→22:19)
[2018-05-10] MEDS: MULTIVITAMINS/MINERALS THERAP 1 TAB PO (09:41)
[2018-05-10] MEDS: ATORVASTATIN 20 MG TAB PO (09:41)
[2018-05-10] MEDS: TAMSULOSIN 0.4 MG CAP PO (09:41)
[2018-05-10] MEDS: CARVedilol 12.5 MG TAB PO ×2 (09:41→20:12)
[2018-05-10] MEDS: ASPIRIN 81 MG ENTERIC TAB PO (09:41)
[2018-05-10 11:32] LABS: BEDSIDE GLUCOSE 120 MG/DL (83-110)
[2018-05-10 16:37] LABS: IMMEDIATE SPIN CROSSMATCH 1 2
[2018-05-10 17:06] LABS: BEDSIDE GLUCOSE 115 MG/DL (83-110)
[2018-05-10] MEDS: WARFARIN SOD 3 MG TAB PO (17:34)
[2018-05-10 20:09] LABS: BEDSIDE GLUCOSE 121 MG/DL (83-110)
[2018-05-10] MEDS: MIRTAZAPINE 15 MG TAB PO (20:13)
[2018-05-10] MEDS: SODIUM CHLORIDE NASAL 0.65% SPRAY BTL (OCEAN) (20:13)
[2018-05-10] MEDS: zolPIDEM TARTRATE 5 MG TAB PO (22:19)
[2018-05-11] MEDS: FUROSEMIDE 100 MG/10 ML VIAL (J1940) IV ×3 (02:00→21:17)
[2018-05-11] MEDS: SLF 3 ML SYR IV ×3 (05:10→21:17)
[2018-05-11 05:39] LABS: BASO % 0.1 % (0.0-1.0); EOS # 0.2 10^3/uL (0.0-0.50); EOS % 2.5 % (0.0-3.0); HEMATOCRIT 29.2 % (42.0-52.0); HEMOGLOBIN 9.1 g/dl (13.5-17.5); IMMATURE GRANULOCYTE % 0.4 % (0-3.0); LYMPH # 0.8 10^3/uL (1.5-4.5); LYMPH % 12.3 % (24.0-44.0); MEAN CORPUSCULAR HEMOGLOBIN 31.1 pg (27.0-33.0); MEAN CORPUSCULAR HGB CONC 31.2 g/dl (32.0-36.5); MEAN CORPUSCULAR VOLUME 99.7 fl (80.0-96.0); MONO % 14.1 % (0.0-5.0); NEUTROPHILS # 4.8 10^3/uL (1.8-7.7); NEUTROPHILS % 70.6 % (36.0-66.0); PLATELET COUNT, AUTOMATED 167 10^3/uL (150-450); RED BLOOD COUNT 2.93 10^6/uL (4.30-6.10); RED CELL DISTRIBUTION WIDTH 20.4 % (11.5-14.5); WHITE BLOOD COUNT 6.8 10^3/uL (4.0-10.0)
[2018-05-11 05:47] LABS: INR 2.07; PROTHROMBIN TIME 23.7 SECONDS (12.1-14.4)
[2018-05-11 05:52] LABS: ANION GAP 6 MEQ/L (8-16); BLOOD UREA NITROGEN 56 MG/DL (7-18); CALCIUM LEVEL 8.3 MG/DL (8.8-10.2); CARBON DIOXIDE LEVEL 34 MEQ/L (21-32); CHLORIDE LEVEL 101 MEQ/L (98-107); CREATININE FOR GFR 1.59 MG/DL (0.70-1.30); GLOMERULAR FILTRATION RATE 45.8 (>42); GLUCOSE, FASTING 99 MG/DL (70-100); POTASSIUM SERUM 3.7 MEQ/L (3.5-5.1); SODIUM LEVEL 141 MEQ/L (136-145)
[2018-05-11] MEDS: HumaLOG INSULIN (NovoLOG) PER UNIT SC ×4 (07:30→20:22)
[2018-05-11] MEDS: SODIUM CHLORIDE NASAL 0.65% SPRAY BTL (OCEAN) ×3 (09:56→20:20)
[2018-05-11] MEDS: FLUoxetine 20 MG CAP PO (09:57)
[2018-05-11] MEDS: FERROUS GLUCONATE 324 MG TAB PO ×2 (09:57→20:19)
[2018-05-11] MEDS: ATORVASTATIN 20 MG TAB PO (09:57)
[2018-05-11] MEDS: oxyBUTYnin *DITROPAN XL* 5 MG TABCR PO (09:57)
[2018-05-11] MEDS: POTASSIUM CHLORIDE 10 MEQ SR TABLET PO ×3 (09:57→20:19)
[2018-05-11] MEDS: TAMSULOSIN 0.4 MG CAP PO (09:58)
[2018-05-11] MEDS: ASPIRIN 81 MG ENTERIC TAB PO (09:58)
[2018-05-11] MEDS: OMEPRAZOLE 20 MG CAP PO ×2 (09:58→20:18)
[2018-05-11] MEDS: MULTIVITAMINS/MINERALS THERAP 1 TAB PO (09:58)
[2018-05-11] MEDS: CARVedilol 12.5 MG TAB PO ×2 (09:58→19:58)
[2018-05-11] MEDS: FEBUXOSTAT 40 MG TABLET (ULORIC) PO (09:59)
[2018-05-11] MEDS: MEROPENEM INJ 500 MG in APPROPRIATE DILUENT 1 EA IV ×2 (09:59→21:17)
[2018-05-11] MEDS: CYANOCOBALAMIN 500 MCG TAB PO (09:59)
[2018-05-11 12:06] LABS: BEDSIDE GLUCOSE 136 MG/DL (83-110)
[2018-05-11] MEDS: PERCOCET 5MG/325MG TAB PO ×2 (13:20→20:18)
[2018-05-11] MEDS: WARFARIN SOD 3 MG TAB PO (16:55)
[2018-05-11 17:00] LABS: BEDSIDE GLUCOSE 105 MG/DL (83-110)
[2018-05-11 18:22] LABS: MAGNESIUM LEVEL 1.9 MG/DL (1.8-2.4)
[2018-05-11] MEDS: MIRTAZAPINE 15 MG TAB PO (20:18)
[2018-05-11 20:27] LABS: BEDSIDE GLUCOSE 136 MG/DL (83-110)
[2018-05-12] MEDS: SLF 3 ML SYR IV ×3 (04:13→21:16)
[2018-05-12] MEDS: PERCOCET 5MG/325MG TAB PO ×4 (04:13→20:18)
[2018-05-12 05:19] LABS: BASO % 0.3 % (0.0-1.0); EOS # 0.1 10^3/uL (0.0-0.50); EOS % 2.3 % (0.0-3.0); HEMATOCRIT 28.7 % (42.0-52.0); HEMOGLOBIN 8.9 g/dl (13.5-17.5); IMMATURE GRANULOCYTE % 0.3 % (0-3.0); LYMPH # 0.8 10^3/uL (1.5-4.5); MEAN CORPUSCULAR HEMOGLOBIN 31.4 pg (27.0-33.0); MEAN CORPUSCULAR VOLUME 101.4 fl (80.0-96.0); NEUTROPHILS # 4.1 10^3/uL (1.8-7.7); NEUTROPHILS % 68.1 % (36.0-66.0); PLATELET COUNT, AUTOMATED 168 10^3/uL (150-450); RED BLOOD COUNT 2.83 10^6/uL (4.30-6.10); RED CELL DISTRIBUTION WIDTH 19.7 % (11.5-14.5)
[2018-05-12 05:30] LABS: INR 2.19; PROTHROMBIN TIME 24.8 SECONDS (12.1-14.4)
[2018-05-12 05:31] LABS: ANION GAP 3 MEQ/L (8-16); BLOOD UREA NITROGEN 51 MG/DL (7-18); CALCIUM LEVEL 8.5 MG/DL (8.8-10.2); CARBON DIOXIDE LEVEL 35 MEQ/L (21-32); CHLORIDE LEVEL 101 MEQ/L (98-107); CREATININE FOR GFR 1.29 MG/DL (0.70-1.30); GLOMERULAR FILTRATION RATE 58.3 (>42); GLUCOSE, FASTING 87 MG/DL (70-100); POTASSIUM SERUM 3.8 MEQ/L (3.5-5.1); SODIUM LEVEL 139 MEQ/L (136-145)
[2018-05-12] MEDS: HumaLOG INSULIN (NovoLOG) PER UNIT SC ×4 (05:39→20:28)
[2018-05-12] MEDS: ACETAMINOPHEN TAB 650MG DOSE (2X325MG) PO (05:58)
[2018-05-12] MEDS: CARVedilol 12.5 MG TAB PO ×2 (09:21→20:25)
[2018-05-12] MEDS: TAMSULOSIN 0.4 MG CAP PO (09:21)
[2018-05-12] MEDS: MULTIVITAMINS/MINERALS THERAP 1 TAB PO (09:21)
[2018-05-12] MEDS: FERROUS GLUCONATE 324 MG TAB PO ×2 (09:21→20:18)
[2018-05-12] MEDS: ASPIRIN 81 MG ENTERIC TAB PO (09:21)
[2018-05-12] MEDS: FEBUXOSTAT 40 MG TABLET (ULORIC) PO (09:21)
[2018-05-12] MEDS: CYANOCOBALAMIN 500 MCG TAB PO (09:22)
[2018-05-12] MEDS: FLUoxetine 20 MG CAP PO (09:22)
[2018-05-12] MEDS: ATORVASTATIN 20 MG TAB PO (09:22)
[2018-05-12] MEDS: POTASSIUM CHLORIDE 10 MEQ SR TABLET PO ×3 (09:22→20:25)
[2018-05-12] MEDS: OMEPRAZOLE 20 MG CAP PO ×2 (09:22→20:25)
[2018-05-12] MEDS: oxyBUTYnin *DITROPAN XL* 5 MG TABCR PO (09:22)
[2018-05-12] MEDS: SODIUM CHLORIDE NASAL 0.65% SPRAY BTL (OCEAN) ×3 (09:23→20:28)
[2018-05-12] MEDS: MEROPENEM INJ 500 MG in APPROPRIATE DILUENT 1 EA IV ×2 (09:23→21:15)
[2018-05-12] MEDS: FUROSEMIDE 100 MG/10 ML VIAL (J1940) IV ×2 (09:23→21:14)
[2018-05-12 12:11] LABS: BEDSIDE GLUCOSE 101 MG/DL (83-110)
[2018-05-12] MEDS: NYSTATIN 100,000 UNITS/GM TOPICAL PWD 15 GM TOP (12:20)
[2018-05-12 16:54] LABS: BEDSIDE GLUCOSE 105 MG/DL (83-110)
[2018-05-12] MEDS: WARFARIN SOD 3 MG TAB PO (17:00)
[2018-05-12] MEDS: MIRTAZAPINE 15 MG TAB PO (20:18)
[2018-05-12 20:30] LABS: BEDSIDE GLUCOSE 107 MG/DL (83-110)
[2018-05-13] MEDS: PERCOCET 5MG/325MG TAB PO ×4 (00:15→17:39)
[2018-05-13] MEDS: SLF 3 ML SYR IV ×3 (04:59→21:14)
[2018-05-13 05:37] LABS: BASO % 0.5 % (0.0-1.0); EOS # 0.2 10^3/uL (0.0-0.50); EOS % 2.9 % (0.0-3.0); HEMATOCRIT 29.7 % (42.0-52.0); HEMOGLOBIN 9.4 g/dl (13.5-17.5); IMMATURE GRANULOCYTE % 0.3 % (0-3.0); LYMPH % 17.4 % (24.0-44.0); MEAN CORPUSCULAR HEMOGLOBIN 32.4 pg (27.0-33.0); MEAN CORPUSCULAR HGB CONC 31.6 g/dl (32.0-36.5); MEAN CORPUSCULAR VOLUME 102.4 fl (80.0-96.0); MONO # 0.9 10^3/uL (0.0-0.8); MONO % 15.9 % (0.0-5.0); NEUTROPHILS # 3.7 10^3/uL (1.8-7.7); PLATELET COUNT, AUTOMATED 188 10^3/uL (150-450); RED CELL DISTRIBUTION WIDTH 18.8 % (11.5-14.5); WHITE BLOOD COUNT 5.9 10^3/uL (4.0-10.0)
[2018-05-13 06:00] LABS: ANION GAP 5 MEQ/L (8-16); BLOOD UREA NITROGEN 43 MG/DL (7-18); C REACTIVE PROTEIN QUANTITATIV 8.11 MG/DL (0.00-0.30); CALCIUM LEVEL 8.7 MG/DL (8.8-10.2); CARBON DIOXIDE LEVEL 34 MEQ/L (21-32); CHLORIDE LEVEL 100 MEQ/L (98-107); CREATININE FOR GFR 1.14 MG/DL (0.70-1.30); GLOMERULAR FILTRATION RATE > 60.0 (>42); GLUCOSE, FASTING 106 MG/DL (70-100); POTASSIUM SERUM 4.1 MEQ/L (3.5-5.1); SODIUM LEVEL 139 MEQ/L (136-145)
[2018-05-13 06:05] LABS: INR 2.33
[2018-05-13] MEDS: HumaLOG INSULIN (NovoLOG) PER UNIT SC ×4 (07:30→20:57)
[2018-05-13] MEDS: FERROUS GLUCONATE 324 MG TAB PO ×2 (09:00→21:07)
[2018-05-13] MEDS: CYANOCOBALAMIN 500 MCG TAB PO (09:04)
[2018-05-13] MEDS: POTASSIUM CHLORIDE 10 MEQ SR TABLET PO ×3 (09:05→21:07)
[2018-05-13] MEDS: OMEPRAZOLE 20 MG CAP PO ×2 (09:05→21:07)
[2018-05-13] MEDS: MULTIVITAMINS/MINERALS THERAP 1 TAB PO (09:05)
[2018-05-13] MEDS: TAMSULOSIN 0.4 MG CAP PO (09:05)
[2018-05-13] MEDS: ATORVASTATIN 20 MG TAB PO (09:06)
[2018-05-13] MEDS: oxyBUTYnin *DITROPAN XL* 5 MG TABCR PO (09:06)
[2018-05-13] MEDS: FEBUXOSTAT 40 MG TABLET (ULORIC) PO (09:06)
[2018-05-13] MEDS: TORSEMIDE 20 MG TAB PO ×2 (09:06→16:54)
[2018-05-13] MEDS: FLUoxetine 20 MG CAP PO (09:06)
[2018-05-13] MEDS: CARVedilol 12.5 MG TAB PO ×2 (09:07→21:08)
[2018-05-13] MEDS: ASPIRIN 81 MG ENTERIC TAB PO (09:09)
[2018-05-13] MEDS: MEROPENEM INJ 500 MG in APPROPRIATE DILUENT 1 EA IV ×2 (09:10→21:08)
[2018-05-13] MEDS: NYSTATIN 100,000 UNITS/GM TOPICAL PWD 15 GM TOP (09:10)
[2018-05-13] MEDS: SODIUM CHLORIDE NASAL 0.65% SPRAY BTL (OCEAN) ×3 (09:10→21:00)
[2018-05-13 11:27] LABS: BEDSIDE GLUCOSE 119 MG/DL (83-110)
[2018-05-13 16:49] LABS: BEDSIDE GLUCOSE 100 MG/DL (83-110)
[2018-05-13] MEDS: WARFARIN SOD 3 MG TAB PO (16:53)
[2018-05-13 20:54] LABS: BEDSIDE GLUCOSE 112 MG/DL (83-110)
[2018-05-13] MEDS: MIRTAZAPINE 15 MG TAB PO (21:07)
[2018-05-13] MEDS: zolPIDEM TARTRATE 5 MG TAB PO (21:53)
[2018-05-14] MEDS: PERCOCET 5MG/325MG TAB PO ×4 (00:05→19:47)
[2018-05-14] MEDS: ACETAMINOPHEN TAB 650MG DOSE (2X325MG) PO ×3 (04:40→17:22)
[2018-05-14] MEDS: SLF 3 ML SYR IV ×3 (05:00→21:40)
[2018-05-14 05:41] LABS: BASO % 0.5 % (0.0-1.0); EOS # 0.2 10^3/uL (0.0-0.50); EOS % 2.8 % (0.0-3.0); HEMATOCRIT 30.2 % (42.0-52.0); HEMOGLOBIN 9.4 g/dl (13.5-17.5); IMMATURE GRANULOCYTE % 0.3 % (0-3.0); LYMPH # 1.2 10^3/uL (1.5-4.5); LYMPH % 20.6 % (24.0-44.0); MEAN CORPUSCULAR HEMOGLOBIN 31.4 pg (27.0-33.0); MEAN CORPUSCULAR HGB CONC 31.1 g/dl (32.0-36.5); MONO # 0.9 10^3/uL (0.0-0.8); MONO % 16.4 % (0.0-5.0); NEUTROPHILS # 3.4 10^3/uL (1.8-7.7); NEUTROPHILS % 59.4 % (36.0-66.0); PLATELET COUNT, AUTOMATED 217 10^3/uL (150-450); RED BLOOD COUNT 2.99 10^6/uL (4.30-6.10); RED CELL DISTRIBUTION WIDTH 18.4 % (11.5-14.5); WHITE BLOOD COUNT 5.7 10^3/uL (4.0-10.0)
[2018-05-14 05:53] LABS: INR 3.13; PROTHROMBIN TIME 32.9 SECONDS (12.1-14.4)
[2018-05-14 06:07] LABS: ANION GAP 4 MEQ/L (8-16); BLOOD UREA NITROGEN 41 MG/DL (7-18); CALCIUM LEVEL 8.5 MG/DL (8.8-10.2); CARBON DIOXIDE LEVEL 35 MEQ/L (21-32); CHLORIDE LEVEL 99 MEQ/L (98-107); CREATININE FOR GFR 1.25 MG/DL (0.70-1.30); GLOMERULAR FILTRATION RATE > 60.0 (>42); GLUCOSE, FASTING 112 MG/DL (70-100); POTASSIUM SERUM 4.3 MEQ/L (3.5-5.1); SODIUM LEVEL 138 MEQ/L (136-145)
[2018-05-14] MEDS: HumaLOG INSULIN (NovoLOG) PER UNIT SC ×4 (07:30→21:00)
[2018-05-14] MEDS: MULTIVITAMINS/MINERALS THERAP 1 TAB PO (08:59)
[2018-05-14] MEDS: SODIUM CHLORIDE NASAL 0.65% SPRAY BTL (OCEAN) ×3 (08:59→21:40)
[2018-05-14] MEDS: TAMSULOSIN 0.4 MG CAP PO (08:59)
[2018-05-14] MEDS: ATORVASTATIN 20 MG TAB PO (08:59)
[2018-05-14] MEDS: FERROUS GLUCONATE 324 MG TAB PO ×2 (09:00→21:39)
[2018-05-14] MEDS: oxyBUTYnin *DITROPAN XL* 5 MG TABCR PO (09:00)
[2018-05-14] MEDS: FLUoxetine 20 MG CAP PO (09:00)
[2018-05-14] MEDS: OMEPRAZOLE 20 MG CAP PO ×2 (09:01→21:38)
[2018-05-14] MEDS: CYANOCOBALAMIN 500 MCG TAB PO (09:01)
[2018-05-14] MEDS: TORSEMIDE 20 MG TAB PO ×2 (09:01→17:23)
[2018-05-14] MEDS: POTASSIUM CHLORIDE 10 MEQ SR TABLET PO ×3 (09:02→21:39)
[2018-05-14] MEDS: ASPIRIN 81 MG ENTERIC TAB PO (09:02)
[2018-05-14] MEDS: FEBUXOSTAT 40 MG TABLET (ULORIC) PO (09:02)
[2018-05-14] MEDS: CARVedilol 12.5 MG TAB PO ×2 (09:02→21:39)
[2018-05-14] MEDS: DARBEPOETIN 100 MCG/0.5 ML *NON-DIALYSIS* SYRINGE (J0881) SC (09:03)
[2018-05-14] MEDS: NYSTATIN 100,000 UNITS/GM TOPICAL PWD 15 GM TOP (09:04)
[2018-05-14] MEDS: MEROPENEM INJ 500 MG in APPROPRIATE DILUENT 1 EA IV ×2 (11:10→21:38)
[2018-05-14 12:06] LABS: BEDSIDE GLUCOSE 103 MG/DL (83-110)
[2018-05-14 16:58] LABS: BEDSIDE GLUCOSE 107 MG/DL (83-110)
[2018-05-14] MEDS: WARFARIN SOD 3 MG TAB PO (17:00)
[2018-05-14 21:29] LABS: BEDSIDE GLUCOSE 99 MG/DL (83-110)
[2018-05-14] MEDS: zolPIDEM TARTRATE 5 MG TAB PO (21:38)
[2018-05-14] MEDS: MIRTAZAPINE 15 MG TAB PO (21:39)
[2018-05-15] MEDS: PERCOCET 5MG/325MG TAB PO ×2 (02:03→09:45)
[2018-05-15] MEDS: SLF 3 ML SYR IV (05:47)
[2018-05-15 06:00] LABS: BASO % 0.3 % (0.0-1.0); EOS # 0.1 10^3/uL (0.0-0.50); EOS % 2.4 % (0.0-3.0); HEMATOCRIT 27.5 % (42.0-52.0); HEMOGLOBIN 8.5 g/dl (13.5-17.5); IMMATURE GRANULOCYTE % 0.3 % (0-3.0); LYMPH # 0.9 10^3/uL (1.5-4.5); LYMPH % 15.7 % (24.0-44.0); MEAN CORPUSCULAR HGB CONC 30.9 g/dl (32.0-36.5); MEAN CORPUSCULAR VOLUME 100.4 fl (80.0-96.0); MONO # 0.9 10^3/uL (0.0-0.8); MONO % 14.9 % (0.0-5.0); NEUTROPHILS # 3.9 10^3/uL (1.8-7.7); NEUTROPHILS % 66.4 % (36.0-66.0); PLATELET COUNT, AUTOMATED 181 10^3/uL (150-450); RED BLOOD COUNT 2.74 10^6/uL (4.30-6.10); RED CELL DISTRIBUTION WIDTH 18.2 % (11.5-14.5); WHITE BLOOD COUNT 5.9 10^3/uL (4.0-10.0)
[2018-05-15 06:23] LABS: ANION GAP 3 MEQ/L (8-16); BLOOD UREA NITROGEN 43 MG/DL (7-18); CALCIUM LEVEL 8.3 MG/DL (8.8-10.2); CARBON DIOXIDE LEVEL 38 MEQ/L (21-32); CHLORIDE LEVEL 98 MEQ/L (98-107); CREATININE FOR GFR 1.36 MG/DL (0.70-1.30); GLOMERULAR FILTRATION RATE 54.8 (>42); GLUCOSE, FASTING 92 MG/DL (70-100); POTASSIUM SERUM 4.2 MEQ/L (3.5-5.1); SODIUM LEVEL 139 MEQ/L (136-145)
[2018-05-15] MEDS: ACETAMINOPHEN TAB 650MG DOSE (2X325MG) PO (06:45)
[2018-05-15] MEDS: HumaLOG INSULIN (NovoLOG) PER UNIT SC ×2 (07:30→12:00)
[2018-05-15 07:53] LABS: C REACTIVE PROTEIN QUANTITATIV 3.24 MG/DL (0.00-0.30)
[2018-05-15] MEDS: MULTIVITAMINS/MINERALS THERAP 1 TAB PO (09:57)
[2018-05-15] MEDS: CYANOCOBALAMIN 500 MCG TAB PO (09:57)
[2018-05-15] MEDS: ATORVASTATIN 20 MG TAB PO (09:57)
[2018-05-15] MEDS: FLUoxetine 20 MG CAP PO (09:57)
[2018-05-15] MEDS: FERROUS GLUCONATE 324 MG TAB PO (09:58)
[2018-05-15] MEDS: OMEPRAZOLE 20 MG CAP PO (09:58)
[2018-05-15] MEDS: oxyBUTYnin *DITROPAN XL* 5 MG TABCR PO (09:58)
[2018-05-15] MEDS: TORSEMIDE 20 MG TAB PO (09:58)
[2018-05-15] MEDS: TAMSULOSIN 0.4 MG CAP PO (09:58)
[2018-05-15] MEDS: POTASSIUM CHLORIDE 10 MEQ SR TABLET PO (09:59)
[2018-05-15] MEDS: CARVedilol 12.5 MG TAB PO (09:59)
[2018-05-15] MEDS: FEBUXOSTAT 40 MG TABLET (ULORIC) PO (09:59)
[2018-05-15] MEDS: ASPIRIN 81 MG ENTERIC TAB PO (09:59)
[2018-05-15] MEDS: SODIUM CHLORIDE NASAL 0.65% SPRAY BTL (OCEAN) (10:06)
[2018-05-15] MEDS: NYSTATIN 100,000 UNITS/GM TOPICAL PWD 15 GM TOP (10:06)
[2018-05-15 11:16] LABS: INR 4.99; PROTHROMBIN TIME 47.6 SECONDS (12.1-14.4)
[2018-05-15 11:34] LABS: BEDSIDE GLUCOSE 98 MG/DL (83-110)
== END 2018-05-15 15:16 | disposition home health service (06) | DRG 871 ==
LOC: M MSPAV 05-06 14:36 → M PCU 05-09 11:52 → M ED 04:22 → M ED INP 09:17 → M ICU 14:19
PROC: 30233N1 Transfusion of Nonautologous Red Blood Cells into Peripheral Vein, Percutaneous Approach (ICD-10-PCS; principal; 2018-05-10)
DX: A41.9 Sepsis, unspecified organism (principal); J18.9 Pneumonia, unspecified organism; J96.21 Acute and chronic respiratory failure with hypoxia; I50.21 Acute systolic (congestive) heart failure; I13.0 Hypertensive heart and chronic kidney disease with heart failure and stage 1 through stage 4 chronic kidney disease, or unspecified chronic kidney disease; J44.1 Chronic obstructive pulmonary disease with (acute) exacerbation; N04.2 Nephrotic syndrome with diffuse membranous glomerulonephritis; N18.3 Chronic kidney disease, stage 3 (moderate); E87.6 Hypokalemia; D50.9 Iron deficiency anemia, unspecified; G47.33 Obstructive sleep apnea (adult) (pediatric); I48.91 Unspecified atrial fibrillation; E11.9 Type 2 diabetes mellitus without complications; N40.0 Benign prostatic hyperplasia without lower urinary tract symptoms; R33.9 Retention of urine, unspecified; K21.9 Gastro-esophageal reflux disease without esophagitis; E78.5 Hyperlipidemia, unspecified; F32.9 Major depressive disorder, single episode, unspecified; M32.14 Glomerular disease in systemic lupus erythematosus; Z79.01 Long term (current) use of anticoagulants; Z79.899 Other long term (current) drug therapy; Z79.82 Long term (current) use of aspirin; Z88.8 Allergy status to other drugs, medicaments and biological substances; M32.13 Lung involvement in systemic lupus erythematosus; M10.9 Gout, unspecified

== ENCOUNTER 2018-06-02 10:28 | Inpatient (IN) | payer OTHER, MEDICARE ==
[~2018-06-02] VITALS: Ht 172.7 cm; Wt 118.0 kg
[~2018-06-02 10:28] MED LIST changes: +ACAR25TA2 PO; -ACET1TAB17 PO; +ACET1TAB55 PO; +ALDA25TA2 PO; +ALDA50TA2 PO; +AMBI5TAB PO; -AMLO10TA2 PO; +AMLO10TA4 PO; +AMMO12CR4 TOP; +ARIP5TA PO; +ARTI99.0 OU; +ASPI1TAB PO; +ASPI81TAEC PO; +ATOR1TAB21 PO; +BACITAB PO; +BACT800T5 PO; +BISAC5TA PO; +BUME1TAB29 PO; +BUME2TAB PO; +CALC1TAB55 PO; +CARV12.5 PO; +COUM1TAB17 PO; +COUM1TAB19 PO; +COZA1TAB PO; +CYCL10CAP PO; +CYCL1CAP2 PO; +CYCL25TA PO; +DIFI200T PO; +DILT240C PO; +DOCU100C16 PO; +FERR325T16 PO; +FLOM0.4C39 PO; +FLUO20CA19 PO; +FURO80TA2 PO; +HALO1TA PO; +HYDR-3719 PO; +KLOR10TA76 PO; +KLOR20TA42 PO; +LEVA750T7 PO; +LIDO1CRE2 EXT; +LOSA25TA33 PO; +METO25TA PO; +MYCO250C PO; +OMEP20TA PO; +OMEP40CA2 PO; +POTA1TAB14 PO; +POTA1TAB23 PO; +PRED10TA2 PO; +PRED20TA PO; +PROAAER10 INH; +PROC20004 SC; +REME30TA PO; +SENN18TA PO; +SPIR-10 PO; +SPIR50TA4 PO; +SUCR1TA PO; +SULF1TAB93 PO; +TORS100T PO; +TRAZ-160 PO; -TRAZ50TA11 PO; +TYLE500T78 PO; +ULOR80TA PO; +VANC1CAP7 PO; +VITA10002 PO; +VITA50005 PO; +WARF-20 PO; +WARF-23 PO; +WARF-58 PO; +WARF4TAB51 PO; +ZOLP5TAB PO
[2018-06-02] MEDS ORDERED: PRED5PAK PO (10:52)
[2018-06-02 10:57] LABS: BASO % 0.3 % (0.0-1.0); EOS % 0.1 % (0.0-3.0); HEMATOCRIT 33.9 % (42.0-52.0); HEMOGLOBIN 10.1 g/dl (13.5-17.5); LYMPH # 2.2 10^3/uL (1.5-4.5); LYMPH % 22.6 % (24.0-44.0); MEAN CORPUSCULAR HEMOGLOBIN 30.9 pg (27.0-33.0); MEAN CORPUSCULAR HGB CONC 29.8 g/dl (32.0-36.5); MEAN CORPUSCULAR VOLUME 103.7 fl (80.0-96.0); MONO # 1.5 10^3/uL (0.0-0.8); MONO % 15.2 % (0.0-5.0); NEUTROPHILS # 5.9 10^3/uL (1.8-7.7); NEUTROPHILS % 61.4 % (36.0-66.0); PLATELET COUNT, AUTOMATED 202 10^3/uL (150-450); RED BLOOD COUNT 3.27 10^6/uL (4.30-6.10); WHITE BLOOD COUNT 9.7 10^3/uL (4.0-10.0)
[2018-06-02 11:11] LABS: INR 1.53; PARTIAL THROMBOPLASTIN TIME 33.7 SECONDS (25.4-37.6); PROTHROMBIN TIME 18.7 SECONDS (12.1-14.4)
[2018-06-02] MEDS: IPRATROPIUM 0.5MG/ALBUTEROL 2.5MG INH SOL UD 3ML (DUONEB)(J7620) NEB PRN ×3 (11:11→11:46)
[2018-06-02 11:18] LABS: ABG BASE EXCESS 0.6 (-2.0-2.0); ABG HCO3 25.5 MEQ/L (22.0-26.0); ABG O2 SATURATION 95.4 % (95.0-99.0); ABG PARTIAL PRESSURE CO2 42.2 mmHg (35.0-45.0); ABG PARTIAL PRESSURE O2 81.5 mmHg (75.0-100.0); ABG TOTAL CO2 26.8 MEQ/L (23.0-31.0); ABG pH (ARTERIAL) 7.399 UNITS (7.350-7.450)
--- NOTE | 2018-06-02 11:52 | REP ---
PORTABLE CHEST: AP portable view of the chest is performed and compared to prior study of 05/09/2018. There is no change since the prior exam. Cardiomegaly is again noted with vascular congestion and diffuse interstitial fibrosis. There appears to be pleural thickening laterally and inferiorly on both sides. No definite acute parenchymal opacities are seen. IMPRESSION: No change since prior study, 05/09/2018. Cardiomegaly and diffuse interstitial fibrosis again noted. Electronically Signed by Bora Wong MD 06/02/2018 04:51 P
--- NOTE | 2018-06-02 12:07 | REP ---
Bilateral lower extremity Duplex Doppler venous ultrasound: Real time compression and duplex Doppler interrogation of the bilateral lower extremity deep venous system is performed. Bilaterally, the common femoral, superficial femoral and popliteal veins are fully compressible with transducer pressure and demonstrate normal spontaneous and phasic flow, without evidence of deep venous thrombosis. Impression: No evidence of deep venous thrombosis of the bilateral lower extremity femoral popliteal venous system. There is left inguinal adenopathy with the largest lymph node in the left inguinal region measuring 3.7 X 1.9 cm. Electronically Signed by Bora Wong MD 06/02/2018 11:59 A
[2018-06-02 12:43] LABS: ALBUMIN 2.4 GM/DL (3.2-5.2); ALT/SGPT 25 U/L (12-78); BILIRUBIN,DIRECT 0.1 MG/DL (0.0-0.2); BILIRUBIN,TOTAL 0.3 MG/DL (0.2-1.0); BLOOD UREA NITROGEN 42 MG/DL (7-18); CALCIUM LEVEL 8.7 MG/DL (8.8-10.2); CARBON DIOXIDE LEVEL 24 MEQ/L (21-32); CHLORIDE LEVEL 106 MEQ/L (98-107); CPK CREATINE PHOSPHOKINASE 23 U/L (39-308); CREATININE FOR GFR 1.28 MG/DL (0.70-1.30); FREE T4 0.87 NG/DL (0.76-1.46); GLOMERULAR FILTRATION RATE 58.8 (>42); GLUCOSE, FASTING 87 MG/DL (70-100); LIPASE 42 U/L (73-393); MB/CK RELATIVE INDEX 5.22 (< OR =4); NT-PRO BNP 16055 PG/ML (<125); POTASSIUM SERUM 4.6 MEQ/L (3.5-5.1); SODIUM LEVEL 141 MEQ/L (136-145); TOTAL PROTEIN 6.4 GM/DL (6.4-8.2); TROPONIN I < 0.02 NG/ML (< 0.10)
[2018-06-02] MEDS ORDERED: FUROSEMIDE 40 MG/4 ML VIAL (J1940) IV ONE (13:15)
[2018-06-02] MEDS ORDERED: KLOR20TA42 PO (13:40)
[2018-06-02] MEDS ORDERED: TORS100T PO (13:40)
[2018-06-02] MEDS ORDERED: PRED5TA PO (13:40)
[2018-06-02] MEDS ORDERED: ARIP5TA PO (13:40)
[2018-06-02] MEDS ORDERED: SPIR-10 PO (13:41)
[2018-06-02] MEDS ORDERED: FAMOTIDINE 20 MG TAB PO PRN (14:45)
[2018-06-02] MEDS ORDERED: LACTIC ACID 12% LOTION 225 GM BTL TOP PRN (14:45)
[2018-06-02] MEDS ORDERED: POLYVINYL ALCOHOL OPHTH SOLN 15 ML(LIQUITEARS) OU PRN (14:45)
--- NOTE | 2018-06-02 15:06 | HPEPDOC ---
[facility] Medical History & Physical Date of Admission Jun 02, 2018 History and Physical PRIMARY CARE PROVIDER: Deepak Conti ATTENDING: Dr. Fabián Stanford CHIEF COMPLAINT: SOB, LE edema. 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 Patient notes that he's been having increased lower extremity edema as well as shortness of breath with past 3 days. He typically gets his medications from the [place] nurse. He has noticed that over the last week, he has gained approximately 7 pounds. He denies any chest pain or palpitations. No syncopal episodes. Patient denies any increased sodium or water intake. States he is currently feeling better since he presented to the ED and is not as short of breath. He had also noted that his INR had increased to 6, and he was told to hold his Coumadin for 4 days. PAST MEDICAL HISTORY: As per HPI PAST SURGICAL HISTORY: Cervical fusion, renal biopsy SOCIAL HISTORY: Denies tobacco, alcohol use. FAMILY HISTORY: Noncontributory ALLERGIES: Please see below. REVIEW OF SYSTEMS: HEENT: Denies sore throat/headache CARDIOVASCULAR: Denies chest pain/palpitations RESPIRATORY: + shortness of breath/cough GASTROINTESTINAL: denies nausea/vomiting GENITOURINARY: Denies dysuria/urinary urgency. MUSCULOSKELETAL: Denies myalgias/arthralgias NEUROLOGICAL: Denies any focal weakness HOME MEDICATIONS: Please see below. PHYSICAL EXAMINATION: Vitals: (see below) General: No acute distress, laying comfortably in bed. HEENT: Moist mucous membranes. Neck: Mild JVD. No lymphadenopathy Cardiac: Irregularly irregular, No murmurs Pulm: Coarse crackles at bilateral bases. Diminished sounds at the bases. No use of accessory muscles. Abd: NT/ND + BS Ext:2-3+ pitting edema bilateral lower extremities. No cyanosis. Distal pulses intact. Following commands, moving all extremities. All other and oriented 3. LABORATORY DATA: See below. IMAGING: Chest x-ray on 06/02/18 IMPRESSION: No change since prior study, 05/09/2018. Cardiomegaly and diffuse interstitial fibrosis again noted. ASSESSMENT/PLAN: 1. Acute on chronic hypoxic respiratory failure secondary to decompensated diastolic heart failure- continue torsemide, spironolactone, metolazone, Lasix IV. Fluid restriction, daily weights. Instructed to call his primary care physician or interlocking installer outpatient if he gains greater than 2-3 pounds. 2. Atrial fibrillation rate control. Continue Coumadin. INR subtherapeutic as patient recently stopped his Coumadin when his INR had increased to 6. 3. CKD stage III with history of lupus nephropathy will need outpatient follow- up. Creatinine stable. Follow up outpatient. 4. Diabetes mellitus continue sliding scale insulin. 5. Hypertension controlled continue current meds 6. History of COPD/interstitial lung disease on 6 L home O2. Continue nebs. 7. History of lupus only outpatient follow-up. DVT prophylaxis on Coumadin Overall prognosis guarded. Vital Signs Vital Signs Date Time Temp Pulse Resp B/P (MAP) Pulse Ox O2 Delivery O2 Flow Rate FiO2 06/02/18 14:13 97.9 06/02/18 14:00 97 139/70 (93) 97 Nasal Cannula 6.0 06/02/18 11:47 15 Laboratory Data Labs 24H Laboratory Tests 2 06/02/18 10:50: Immature Granulocyte % (Auto) 0.4, White Blood Count 9.7, Red Blood Count 3.27L, Hemoglobin 10.1L, Hematocrit 33.9L, Mean Corpuscular Volume 103.7H, Mean Corpuscular Hemoglobin 30.9, Mean Corpuscular Hemoglobin Concent 29.8L, Red Cell Distribution Width 17.7H, Platelet Count 202, Neutrophils (%) (Auto) 61.4, Lymphocytes (%) (Auto) 22.6L, Monocytes (%) (Auto) 15.2H, Eosinophils (%) (Auto) 0.1, Basophils (%) (Auto) 0.3, Neutrophils # (Auto) 5.9, Lymphocytes # (Auto) 2.2, Monocytes # (Auto) 1.5H, Eosinophils # (Auto) 0.0, Basophils # (Auto) 0.0, Nucleated Red Blood Cells % (auto) 0.0, Prothrombin Time 18.7H, Prothromb Time International Ratio 1.53, Activated Partial Thromboplast Time 33.7, Anion Gap 11, Glomerular Filtration Rate 58.8, Calcium Level 8.7L, Aspartate Amino Transf (AST/SGOT) 25, Alanine Aminotransferase (ALT/SGPT) 25, Alkaline Phosphatase 63, Total Bilirubin 0.3, Direct Bilirubin 0.1, Total Creatine Kinase 23L, Creatine Kinase MB 1.0, Creatine Kinase MB Relative Index 5.22H, Troponin I < 0.02, SX-[id number]-Type Natriuretic Peptide 15230Z, Total Protein 6.4, Albumin 2.4L, Albumin/Globulin Ratio 0.60L, Lipase 42L, Thyroid Stimulating Hormone (TSH) 2.460, Free Thyroxine 0.87 06/02/18 10:56: Blood Gas Bicarbonate Standard 25.0, Arterial Blood pH 7.399, Arterial Blood Partial Pressure CO2 42.2, Arterial Blood Partial Pressure O2 81.5, Arterial Blood Total CO2 26.8, Arterial Blood HCO3 25.5, Arterial Blood Base Excess 0.6, Arterial Blood Oxygen Saturation 95.4 CBC/BMP Laboratory Tests 06/02/18 10:50 Red Blood Count 3.27 L, Mean Corpuscular Volume 103.7 H, Mean Corpuscular Hemoglobin 30.9, Mean Corpuscular Hemoglobin Concent 29.8 L, Red Cell Distribution Width 17.7 H, Neutrophils (%) (Auto) 61.4, Lymphocytes (%) (Auto) 22.6 L, Monocytes (%) (Auto) 15.2 H, Eosinophils (%) (Auto) 0.1, Basophils (%) (Auto) 0.3, Neutrophils # (Auto) 5.9, Lymphocytes # (Auto) 2.2, Monocytes # (Auto) 1.5 H, Eosinophils # (Auto) 0.0, Basophils # (Auto) 0.0 Home Medications Scheduled (Calcium 600+D3 600-400 mg-Unit) 1 Tab Tab, 1 TAB PO BID (Procrit) 20,000 Unit/Ml Inj, 20,000 UNIT SC QWEEK THURSDAY (Cyclophosphamide) 50 Mg Cap, 50 MG PO BID Acarbose (Acarbose) 25 Mg Tab, 25 MG PO WM Aripiprazole (Aripiprazole) 5 Mg Tab, 5 MG PO DAILY Aspirin (Aspirin 81) 81 Mg Tab, 81 MG PO DAILY Atorvastatin Calcium (Atorvastatin Calcium) 40 Mg Tab, 20 MG PO DAILY Carvedilol (Carvedilol) 12.5 Mg Tab, 12.5 MG PO BID Cyanocobalamin (Vitamin B-12) 1,000 Mcg Tab, 1,000 MCG PO DAILY Ergocalciferol (Vitamin D) 50,000 Unit Cap, 50,000 UNIT PO QWEEK THURSDAY Febuxostat (Uloric) 80 Mg Tab, 80 MG PO DAILY Ferrous Gluconate (Ferrous Gluconate) 324 Mg Tab, 324 MG PO BID Fluoxetine Hcl (Fluoxetine HCl) 20 Mg Cap, 80 MG PO DAILY Gabapentin (Gabapentin) 600 Mg Tab, 600 MG PO TID Losartan Potassium (Losartan Potassium) 25 Mg Tab, 25 MG PO DAILY Mirtazapine (Remeron) 30 Mg Tab, 30 MG PO QHS Multivitamins *[facility] STOCKED* (Thera M Plus *[facility] STOCKED*) 1 Tab Tab, 1 TAB PO DAILY Omeprazole (Omeprazole) 20 Mg Tab, 40 MG PO BID Oxybutynin Chloride (Oxybutynin Chloride ER) 15 Mg Tab, 15 MG PO DAILY Potassium Chloride (Klor-Con M20) 20 Meq Tabcr, 20 MEQ PO DAILY Prednisone (Prednisone) 5 Mg Tab, 5 MG PO DAILY Spironolactone (Spironolactone) 25 Mg Tab, 25 MG PO BID Tamsulosin Hydrochloride (Flomax) 0.4 Mg Cap, 0.4 MG PO DAILY Torsemide (Torsemide) 100 Mg Tab, 100 MG PO BID TAKES AT 0900 AND 1700 Warfarin Sod (Warfarin Sodium) 3 Mg Tab, 3 MG PO QPM TAKES AT 1700 Scheduled PRN Acetaminophen (Tylenol Extra Strength) 500 Mg Tab, 500 MG PO Q8H PRN for PAIN Acetaminophen/Hydrocodone (Hydrocodone/Acetaminophen 10-325 mg) 1 Tab Tab, 2 TAB PO TID PRN for PAIN Albuterol Sulfate (Proair Hfa) 108 Mcg/Act Aer, 2 PUFF INH Q4H PRN for SHORTNESS OF BREATH Ammonium Lactate (Ammonium Lactate) 12 % Lot, 1 DOSE TOP BID PRN for DRY SKIN APPLIES TO HEELS Artificial Tears (Artificial Tears) 1.4 % Joyce, 1 DROP OU BID PRN for DRY EYES Ranitidine HCl (Ranitidine HCl) 150 Mg Tab, 1 TAB PO BID PRN for HEARTBURN Trazodone HCl (Trazodone HCl) 50 Mg Tab, 50 MG PO QHS PRN for SLEEP DOES NOT TAKE IF TAKE AMBIEN Zolpidem Tartrate (Ambien) 5 Mg Tab, 5 MG PO QHS PRN for SLEEP Allergies Coded Allergies: Allopurinol (Verified Allergy, Mild, itching, 06/02/18) NATALIA FRANKLIN MD Jun 02, 2018 15:06
[2018-06-02 16:26] VITALS: BP 150/83
[2018-06-02] MEDS ORDERED: SLF 3 ML SYR IV PRN (16:30)
[2018-06-02] MEDS: MULTIVITAMINS/MINERALS THERAP 1 TAB PO SCH (17:24)
[2018-06-02] MEDS: CYANOCOBALAMIN 500 MCG TAB PO SCH (17:25)
[2018-06-02] MEDS: WARFARIN SOD 3 MG TAB PO SCH (17:25)
[2018-06-02] MEDS: GABAPENTIN 300 MG CAP PO SCH ×2 (17:25→20:42)
[2018-06-02] MEDS: TAMSULOSIN 0.4 MG CAP PO SCH (17:25)
[2018-06-02] MEDS: predniSONE 5 MG TAB PO SCH (17:25)
[2018-06-02] MEDS: ASPIRIN 81 MG ENTERIC TAB PO SCH (17:26)
[2018-06-02] MEDS: oxyBUTYnin *DITROPAN XL* 5 MG TABCR PO SCH (17:26)
[2018-06-02] MEDS: SPIRONOLACTONE 25 MG TAB PO SCH (17:26)
[2018-06-02] MEDS: FLUoxetine 20 MG CAP PO SCH (17:26)
[2018-06-02] MEDS: ATORVASTATIN 20 MG TAB PO SCH (17:27)
[2018-06-02] MEDS: TORSEMIDE 100 MG TAB PO SCH (17:29)
[2018-06-02] MEDS: ANEXSIA, NORCO 7.5MG/325MG TABLET(HYDROCODONE/APAP) PO PRN (17:30)
[2018-06-02] MEDS: FEBUXOSTAT 40 MG TABLET (ULORIC) PO SCH (17:32)
[2018-06-02 18:30] LABS: CPK CREATINE PHOSPHOKINASE 15 U/L (39-308); MB/CK RELATIVE INDEX 6.67 (< OR =4)
--- NOTE | 2018-06-02 18:49 | ECGEPIP ---
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
[2018-06-02 20:00] VITALS: BP 142/80
[2018-06-02] MEDS: FUROSEMIDE 40 MG/4 ML VIAL (J1940) IV SCH (20:42)
[2018-06-02] MEDS: zolPIDEM TARTRATE 5 MG TAB PO PRN (20:43)
[2018-06-02] MEDS: CARVedilol 12.5 MG TAB PO SCH (20:43)
[2018-06-02] MEDS: OMEPRAZOLE 20 MG CAP PO SCH (20:43)
[2018-06-02] MEDS: SLF 3 ML SYR IV SCH (20:44)
[2018-06-02] MEDS: MIRTAZAPINE 15 MG TAB PO SCH (20:44)
[2018-06-02] MEDS: FERROUS GLUCONATE 324 MG TAB PO SCH (20:44)
[2018-06-02] MEDS: traZODone 50 MG TAB PO PRN (20:44)
[2018-06-02 20:58] LABS: TROPONIN I < 0.02 NG/ML (< 0.10)
[2018-06-03] VITALS: BP 130/72
[2018-06-03] MEDS: FUROSEMIDE 40 MG/4 ML VIAL (J1940) IV SCH ×6 (00:45→20:00)
[2018-06-03 04:00] VITALS: BP_SYST 122; BP_SYST 126; BP_DIAS 68; BP_DIAS 76
[2018-06-03] MEDS: SLF 3 ML SYR IV SCH ×3 (04:26→20:51)
[2018-06-03 07:38] LABS: INR 2.21
[2018-06-03 08:00] VITALS: BP 122/66
[2018-06-03 08:19] LABS: BLOOD UREA NITROGEN 41 MG/DL (7-18); CALCIUM LEVEL 9.2 MG/DL (8.8-10.2); CARBON DIOXIDE LEVEL 32 MEQ/L (21-32); CHLORIDE LEVEL 101 MEQ/L (98-107); CREATININE FOR GFR 1.24 MG/DL (0.70-1.30); GLOMERULAR FILTRATION RATE > 60.0 (>42); GLUCOSE, FASTING 108 MG/DL (70-100); POTASSIUM SERUM 4.6 MEQ/L (3.5-5.1); SODIUM LEVEL 140 MEQ/L (136-145)
[2018-06-03 08:20] LABS: HEMATOCRIT 31.6 % (42.0-52.0); HEMOGLOBIN 9.9 g/dl (13.5-17.5); MEAN CORPUSCULAR HEMOGLOBIN 30.5 pg (27.0-33.0); MEAN CORPUSCULAR HGB CONC 31.3 g/dl (32.0-36.5); MEAN CORPUSCULAR VOLUME 97.2 fl (80.0-96.0); PLATELET COUNT, AUTOMATED 220 10^3/uL (150-450); RED BLOOD COUNT 3.25 10^6/uL (4.30-6.10); WHITE BLOOD COUNT 7.3 10^3/uL (4.0-10.0)
[2018-06-03] MEDS: FEBUXOSTAT 40 MG TABLET (ULORIC) PO SCH (08:38)
[2018-06-03] MEDS: ASPIRIN 81 MG ENTERIC TAB PO SCH (08:38)
[2018-06-03] MEDS: CYANOCOBALAMIN 500 MCG TAB PO SCH (08:39)
[2018-06-03] MEDS: ANEXSIA, NORCO 7.5MG/325MG TABLET(HYDROCODONE/APAP) PO PRN ×2 (08:39→19:30)
[2018-06-03] MEDS: ATORVASTATIN 20 MG TAB PO SCH (08:39)
[2018-06-03] MEDS: FLUoxetine 20 MG CAP PO SCH (08:39)
[2018-06-03] MEDS: CARVedilol 12.5 MG TAB PO SCH ×2 (08:40→20:49)
[2018-06-03] MEDS: FERROUS GLUCONATE 324 MG TAB PO SCH ×2 (08:40→20:50)
[2018-06-03] MEDS: OMEPRAZOLE 20 MG CAP PO SCH ×2 (08:49→20:49)
[2018-06-03] MEDS: TAMSULOSIN 0.4 MG CAP PO SCH (08:49)
[2018-06-03] MEDS: oxyBUTYnin *DITROPAN XL* 5 MG TABCR PO SCH (08:49)
[2018-06-03] MEDS: GABAPENTIN 300 MG CAP PO SCH ×3 (08:49→20:50)
[2018-06-03] MEDS: TORSEMIDE 100 MG TAB PO SCH ×2 (08:49→18:03)
[2018-06-03] MEDS: predniSONE 5 MG TAB PO SCH (08:49)
[2018-06-03] MEDS: MULTIVITAMINS/MINERALS THERAP 1 TAB PO SCH (08:49)
[2018-06-03] MEDS: SPIRONOLACTONE 25 MG TAB PO SCH ×2 (08:50→18:05)
[2018-06-03 12:00] VITALS: BP 120/76
--- NOTE | 2018-06-03 12:59 | IPNPDOC ---
Text Note Date of Service The patient was seen on 06/03/18. NOTE Subjective: Patient seen and examined at bedside. States his breathing feels better today. Objective: General: NAD, lying comfortably in bed HEENT: NC/AT, EOMI Lungs: b/l crackles Heart: +S1S2, irregular Abd: obese, soft, NT, +BS Ext: peripheral edema A/P: 72 yo male with extensive cardiac and medical history for decompensated congestive heart failure: #decompensated CHF - hx right heart/diastolic failure - continue with IV lasix - cardiology c/s pending - strict i/o's, daily weight - output not accurate, patient does not always urinate in collection bowl #acute/chronic hypoxic respiratory failure - as per above - supplemental O2 as needed - states baseline is 5L at night, 6L during day #recent coagulopathy - daily INR #afib - rate controlled - cardiology c/s #CKD stage III #Lupus nephropathy #DM #HTN #COPD/interstitial lung disease #DVT prophylaxis Dispo: Pending cardiology c/s, IV diuresis. VS,Fishbone, I+O VS, Fishbone, I+O Laboratory Tests 06/03/18 07:02 Red Blood Count 3.25 L, Mean Corpuscular Volume 97.2 H, Mean Corpuscular Hemoglobin 30.5, Mean Corpuscular Hemoglobin Concent 31.3 L, Red Cell Dist ribution Width 17.4 H, Calcium Level 9.2 Vital Signs Date Time Temp Pulse Resp B/P (MAP) Pulse Ox O2 Delivery O2 Flow Rate FiO2 06/03/18 09:12 18 High Flow Cannula 6.0 06/03/18 08:40 83 122/66 06/03/18 08:00 97.3 96 06/03/18 04:00 94 I&O- Last 24 Hours up to 6 AM 06/03/18 06:00 Intake Total 360 ml Output Total 3626 ml Balance -3266 ml BRENDON JONES MD Jun 03, 2018 12:59
[2018-06-03 16:00] VITALS: BP 100/56
[2018-06-03] MEDS ORDERED: GLUCAGON FOR INJ 1 MG VIAL (J1610) SC PRN (16:45)
[2018-06-03] MEDS ORDERED: GLUCOSE 4 GM CHEW TABLET PO PRN (16:45)
[2018-06-03] MEDS ORDERED: DEXTROSE 50% 50 ML SYRINGE IV PRN (16:45)
[2018-06-03] MEDS: WARFARIN SOD 3 MG TAB PO SCH (18:03)
[2018-06-03] MEDS: HumaLOG INSULIN (NovoLOG) PER UNIT SC SCH ×2 (18:04→20:50)
[2018-06-03] MEDS: zolPIDEM TARTRATE 5 MG TAB PO PRN (20:49)
[2018-06-03] MEDS: MIRTAZAPINE 15 MG TAB PO SCH (20:49)
[2018-06-03] MEDS: traZODone 50 MG TAB PO PRN (20:50)
[2018-06-03 21:10] VITALS: BP 93/67
[2018-06-04] VITALS: BP 106/66
[2018-06-04 04:00] VITALS: BP 164/95
[2018-06-04] MEDS: FUROSEMIDE 40 MG/4 ML VIAL (J1940) IV SCH ×2 (04:00)
[2018-06-04] MEDS: SLF 3 ML SYR IV SCH ×3 (04:22→21:05)
[2018-06-04 05:54] LABS: HEMATOCRIT 30.7 % (42.0-52.0); HEMOGLOBIN 9.7 g/dl (13.5-17.5); MEAN CORPUSCULAR HEMOGLOBIN 31.1 pg (27.0-33.0); MEAN CORPUSCULAR HGB CONC 31.6 g/dl (32.0-36.5); MEAN CORPUSCULAR VOLUME 98.4 fl (80.0-96.0); PLATELET COUNT, AUTOMATED 214 10^3/uL (150-450); RED BLOOD COUNT 3.12 10^6/uL (4.30-6.10); WHITE BLOOD COUNT 9.5 10^3/uL (4.0-10.0)
[2018-06-04 06:17] LABS: CALCIUM LEVEL 9.1 MG/DL (8.8-10.2); CREATININE FOR GFR 1.73 MG/DL (0.70-1.30); GLOMERULAR FILTRATION RATE 41.5 (>42)
[2018-06-04 06:33] LABS: INR 2.2; PROTHROMBIN TIME 24.9 SECONDS (12.1-14.4)
[2018-06-04] MEDS: HumaLOG INSULIN (NovoLOG) PER UNIT SC SCH ×4 (07:30→20:34)
[2018-06-04] MEDS: ANEXSIA, NORCO 7.5MG/325MG TABLET(HYDROCODONE/APAP) PO PRN ×3 (07:46→21:05)
[2018-06-04 08:00] VITALS: BP 105/71
[2018-06-04] MEDS: FEBUXOSTAT 40 MG TABLET (ULORIC) PO SCH (08:38)
[2018-06-04] MEDS: ATORVASTATIN 20 MG TAB PO SCH (08:38)
[2018-06-04] MEDS: OMEPRAZOLE 20 MG CAP PO SCH ×2 (08:38→21:04)
[2018-06-04] MEDS: ASPIRIN 81 MG ENTERIC TAB PO SCH (08:39)
[2018-06-04] MEDS: TAMSULOSIN 0.4 MG CAP PO SCH (08:39)
[2018-06-04] MEDS: predniSONE 5 MG TAB PO SCH (08:39)
[2018-06-04] MEDS: GABAPENTIN 300 MG CAP PO SCH ×3 (08:39→21:03)
[2018-06-04] MEDS: CYANOCOBALAMIN 500 MCG TAB PO SCH (08:39)
[2018-06-04] MEDS: FERROUS GLUCONATE 324 MG TAB PO SCH ×2 (08:39→21:05)
[2018-06-04] MEDS: oxyBUTYnin *DITROPAN XL* 5 MG TABCR PO SCH (08:39)
[2018-06-04] MEDS: SPIRONOLACTONE 25 MG TAB PO SCH ×2 (08:39→17:40)
[2018-06-04] MEDS: MULTIVITAMINS/MINERALS THERAP 1 TAB PO SCH (08:39)
[2018-06-04] MEDS: FLUoxetine 20 MG CAP PO SCH (08:39)
[2018-06-04] MEDS: CARVedilol 12.5 MG TAB PO SCH ×2 (08:43→21:04)
[2018-06-04 12:00] VITALS: BP 105/56
--- NOTE | 2018-06-04 12:56 | IPNPDOC ---
Text Note Date of Service The patient was seen on 06/04/18. NOTE Subjective: Patient seen and examined at bedside. No new medical complaints. Objective: General: NAD, lying comfortably in bed HEENT: NC/AT, EOMI Lungs: b/l crackles R>L Heart: +S1S2, irregular Abd: obese, soft, NT, +BS Ext: peripheral edema A/P: 72 yo male with extensive cardiac and medical history for decompensated congestive heart failure: #decompensated CHF - hx right heart/diastolic failure - creatinine increased today - diuretic therapy on hold pending cardiology c/s - cardiology c/s pending - strict i/o's, daily weight - output not accurate, patient does not always urinate in collection bowl #acute/chronic hypoxic respiratory failure - as per above - supplemental O2 as needed - states baseline is 5L at night, 6L during day #recent coagulopathy - daily INR #afib - rate controlled - cardiology c/s #CKD stage III #Lupus nephropathy #DM #HTN #COPD/interstitial lung disease #DVT prophylaxis Dispo: Pending cardiology c/s. VS,Fishbone, I+O VS, Fishbone, I+O Laboratory Tests 06/04/18 05:33 Red Blood Count 3.12 L, Mean Corpuscular Volume 98.4 H, Mean Corpuscular Hemoglobin 31.1, Mean Corpuscular Hemoglobin Concent 31.6 L, Red Cell Distribution Width 17.7 H, Calcium Level 9.1 Vital Signs Date Time Temp Pulse Resp B/P (MAP) Pulse Ox O2 Delivery O2 Flow Rate FiO2 06/04/18 12:18 22 06/04/18 08:43 91 105/71 06/04/18 08:00 6.0 06/04/18 08:00 97.8 96 Nasal Cannula 06/03/18 04:00 94 I&O- Last 24 Hours up to 6 AM 06/04/18 05:59 Intake Total 1260 ml Output Total 1850 ml Balance -590 ml BRENDON JONES MD Jun 04, 2018 12:56
[2018-06-04 16:00] VITALS: BP 90/91
[2018-06-04] MEDS: WARFARIN SOD 3 MG TAB PO SCH (17:40)
[2018-06-04] MEDS ORDERED: FUROSEMIDE 20 MG/2 ML VIAL (J1940) IV ONE (19:00)
[2018-06-04 20:00] VITALS: BP 115/67
[2018-06-04] MEDS: MIRTAZAPINE 15 MG TAB PO SCH (21:04)
[2018-06-05] VITALS (7 sets, daily range): BP systolic 110–160; BP diastolic 58–78
[2018-06-05] MEDS: ANEXSIA, NORCO 7.5MG/325MG TABLET(HYDROCODONE/APAP) PO PRN ×3 (04:20→23:33)
[2018-06-05] MEDS: SLF 3 ML SYR IV SCH ×3 (05:15→20:53)
[2018-06-05 06:11] LABS: HEMATOCRIT 32.8 % (42.0-52.0); HEMOGLOBIN 10.2 g/dl (13.5-17.5); MEAN CORPUSCULAR HEMOGLOBIN 31.1 pg (27.0-33.0); MEAN CORPUSCULAR HGB CONC 31.1 g/dl (32.0-36.5); PLATELET COUNT, AUTOMATED 207 10^3/uL (150-450); RED BLOOD COUNT 3.28 10^6/uL (4.30-6.10)
[2018-06-05 06:31] LABS: INR 2.12; PROTHROMBIN TIME 24.2 SECONDS (12.1-14.4)
[2018-06-05 06:32] LABS: CREATININE FOR GFR 2.04 MG/DL (0.70-1.30); GLOMERULAR FILTRATION RATE 34.3 (>42); POTASSIUM SERUM 4.4 MEQ/L (3.5-5.1)
[2018-06-05] MEDS: HumaLOG INSULIN (NovoLOG) PER UNIT SC SCH ×4 (07:30→21:00)
--- NOTE | 2018-06-05 07:45 | IPNPDOC ---
Text Note Date of Service The patient was seen on 06/05/18. NOTE Subjective: Patient seen and examined at bedside. No new medical complaints. Objective: General: NAD, lying comfortably in bed HEENT: NC/AT, EOMI Lungs: b/l crackles R>L Heart: +S1S2, irregular Abd: obese, soft, NT, +BS Ext: peripheral edema A/P: 72 yo male with extensive cardiac and medical history for decompensated congestive heart failure: #decompensated CHF - hx right heart/diastolic failure - creatinine worsening - further diuretic therapy pending cardiology c/s - cardiology c/s pending - strict i/o's, daily weight - output not accurate, patient does not always urinate in collection bowl #acute/chronic hypoxic respiratory failure - as per above - supplemental O2 as needed - states baseline is 5L at night, 6L during day #recent coagulopathy - daily INR #afib - rate controlled - cardiology c/s #CKD stage III #Lupus nephropathy #DM #HTN #COPD/interstitial lung disease #DVT prophylaxis #gait dysfunction - pending PT Dispo: Pending cardiology c/s, PT eval, PFS - may need home care. VS,Fishbone, I+O VS, Fishbone, I+O Laboratory Tests 06/05/18 05:47 Red Blood Count 3.28 L, Mean Corpuscular Volume 100.0 H, Mean Corpuscular Hemoglobin 31.1, Mean Corpuscular Hemoglobin Concent 31.1 L, Red Cell Distribution Width 17.5 H, Calcium Level 9.0 Vital Signs Date Time Temp Pulse Resp B/P (MAP) Pulse Ox O2 Delivery O2 Flow Rate FiO2 06/05/18 04:50 18 06/05/18 04:00 97.5 88 110/72 (85) 95 High Flow Cannula 4.0 06/03/18 04:00 94 I&O- Last 24 Hours up to 6 AM 06/05/18 06:00 Intake Total 1250 ml Output Total 600 ml Balance 650 ml BRENDON JONES MD Jun 05, 2018 07:45
[2018-06-05] MEDS: SPIRONOLACTONE 25 MG TAB PO SCH ×2 (09:01→17:32)
[2018-06-05] MEDS: ASPIRIN 81 MG ENTERIC TAB PO SCH (09:01)
[2018-06-05] MEDS: CYANOCOBALAMIN 500 MCG TAB PO SCH (09:01)
[2018-06-05] MEDS: ATORVASTATIN 20 MG TAB PO SCH (09:01)
[2018-06-05] MEDS: OMEPRAZOLE 20 MG CAP PO SCH ×2 (09:02→20:52)
[2018-06-05] MEDS: CARVedilol 12.5 MG TAB PO SCH ×2 (09:02→20:53)
[2018-06-05] MEDS: FEBUXOSTAT 40 MG TABLET (ULORIC) PO SCH (09:02)
[2018-06-05] MEDS: GABAPENTIN 300 MG CAP PO SCH ×3 (09:03→20:52)
[2018-06-05] MEDS: oxyBUTYnin *DITROPAN XL* 5 MG TABCR PO SCH (09:03)
[2018-06-05] MEDS: predniSONE 5 MG TAB PO SCH (09:03)
[2018-06-05] MEDS: FERROUS GLUCONATE 324 MG TAB PO SCH ×2 (09:03→20:52)
[2018-06-05] MEDS: MULTIVITAMINS/MINERALS THERAP 1 TAB PO SCH (09:03)
[2018-06-05] MEDS: FLUoxetine 20 MG CAP PO SCH (09:03)
[2018-06-05] MEDS: TAMSULOSIN 0.4 MG CAP PO SCH (09:03)
--- NOTE | 2018-06-05 15:30 | IPN ---
DATE OF SERVICE: 06/05/2018 Mr. Frances was seen early this morning, he was sitting up in bed in no acute distress at rest. He denies any chest pain. He thinks his shortness of breath has improved. His pedal edema has been stable. He was initially admitted on 06/02/2018 with decompensated congestive heart failure. Most recent echocardiogram revealed a left ventricular ejection fraction (LVEF) estimated at 50%. He has no cough or hemoptysis. There is no nausea, vomiting, diarrhea, melena, or hematemesis. He has no focal manifestation. When I saw him, he was having physical therapy. On physical examination, patient is alert and oriented, in no acute distress at rest. His vital signs earlier revealed a blood pressure of 132/70 with a pulse of 75, respirations 26, and his maximum temperature was 97.6 degrees Fahrenheit, with oxygen saturation of 96% on 6 liters nasal cannula. Examination of the head: Atraumatic. Neck is supple, no jugular and no carotid bruits appreciated. The lungs revealed bilateral crackles but no wheezing. The heart examination revealed irregular heart sounds without gallops. The point of maximum impulse (PMI) is slightly displaced inferiorly. There is no rub. Abdomen is soft and nontender. Extremities reveal +2 bilateral lower leg edema. Neurological examination grossly is negative for focal deficit. LABS: CBC done today revealed a WBC of 8.0, hemoglobin, 10.2, hematocrit 32.8, and platelets 207,000. PT today is 24.2 with an INR of 2.12. BMP revealed a sodium of 137, potassium 4.4, chloride 98, CO2 34, BUN 53, creatinine 2.04, GFR 34.3, fasting glucose 88, and calcium 9.0. Telemetry revealed atrial fibrillation. Ventricular rate is under control. IMPRESSION: 1. Decompensated congestive heart failure, diastolic versus systolic. 2. History of coronary artery disease. 3. History of atrial fibrillation, chronic and persistent. 4. Chronic kidney disease with lupus nephropathy. 5. History of chronic obstructive pulmonary disease (COPD) and diffuse interstitial pulmonary fibrosis. 6. Anemia. 7. Hypertension. 8. Hyperlipidemia. Mr. Angel Frances seems to be stable. He only has received a small dose of furosemide yesterday, and he has developed some deterioration of his kidney function. His medications were reviewed, and I will continue the same, but will hold on the spironolactone for now and monitor his BUN, creatinine, and serum potassium. I will reassess his left ventricular ejection fraction (LVEF) with an echocardiogram. He is on Coumadin for prevention of thromboembolic events for his atrial fibrillation, heart rate is under control. It was a pleasure to participate in the care of . Angel Frances for his underlying cardiac condition. I will monitor him along with you. He appears to be stable from a cardiac point of view. Further recommendation will be given after his echocardiogram. KOJO
[2018-06-05] MEDS: WARFARIN SOD 3 MG TAB PO SCH (17:32)
[2018-06-05] MEDS: MIRTAZAPINE 15 MG TAB PO SCH (20:52)
[2018-06-05] MEDS: NYSTATIN 100,000 UNITS/GM TOPICAL PWD 15 GM TOP SCH (20:53)
--- NOTE | 2018-06-05 23:08 | CR ---
DATE OF CONSULTATION: 06/04/2018 REFERRING PROVIDER: Dr. Fabián Stanford PRIMARY PROVIDER: Dr. Del Phipps PRIMARY VENTILATION MECHANIC: Dr. Anirudh Ray REASON FOR CONSULTATION: Heart failure. HISTORY OF PRESENT ILLNESS: A 72-year-old male was admitted on 06/02/2018 with increasing shortness of breath, pedal edema, weight gain. He was found to be in heart failure and was admitted for further management and monitoring. He was started on intravenous (IV) Lasix. Cardiology consult was called. When I saw Mr. Angel Frances yesterday, he was sitting up in bed in no acute distress at rest, and he stated he felt better since in the hospital and was able to sleep better night. He denied any chest pain or palpitations. His cough has improved. He denies any active bleed. He stated he takes medication regularly, and he tries to follow a low-salt diet. He denies any nausea, vomiting, diarrhea, melena, or hematemesis. He has no dysuria, polyuria, hematuria. He denies any focal manifestation. PAST MEDICAL HISTORY: Positive for congestive heart failure, and his left ventricular systolic function in the past was reported to be about 50%. 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 He denies any history of transient ischemic attacks (TIA)/cerebrovascular accident (CVA). PAST SURGICAL HISTORY: Positive for surgery done on his cervical spine for degenerative disc disease and renal biopsy. FAMILY HISTORY: Noncontributory. SOCIAL HISTORY: Patient lives with his granddaughter, who is taking care of him. He does not smoke or abuse alcohol. ALLERGIES: He has allergies to ALLOPURINOL. ADVANCE DIRECTIVES: Patient has a DO NOT RESUSCITATE and DO NOT INTUBATE status. MEDICATIONS: - intravenous (IV) Lasix as needed - carvedilol 12.5 mg by mouth twice a day - ferrous sulfate 324 mg by mouth twice a day - mirtazapine 30 mg by mouth at bedtime - omeprazole 40 mg by mouth twice a day - spironolactone 25 mg by mouth twice a day - Coumadin as directed - hydrocodone 7.5/325 in two tablets every 6 hours as needed for pain - gabapentin 600 mg by mouth three times a day - artificial tears - famotidine 20 mg by mouth twice a day as needed for heartburn - trazodone 50 mg by mouth at bedtime as needed - Zolpidem 5 mg by mouth at bedtime as needed for insomnia - Abilify 5 mg by mouth daily - aspirin 81 mg by mouth daily - atorvastatin 20 mg by mouth daily - vitamin B12 at 1000 mcg by mouth daily - Uloric acid 80 mg by mouth daily - paroxetine 80 mg by mouth daily - multivitamin one tablet by mouth daily - Ditropan XL 15 mg by mouth daily - prednisone 5 mg by mouth daily - tamsulosin 0.4 mg by mouth daily He is also on D50 as well as glucose tablets and glucagon for hypoglycemic events. She is also on Humalog as directed. PHYSICAL EXAMINATION: Patient is alert and oriented in no acute distress at rest. His vital signs when I saw him revealed a blood pressure of 115/67 with a pulse of 91, respirations 18-20, and maximum temperature was 97.4 degrees Fahrenheit with an oxygen saturation of 94-97% on 6 liters nasal cannula. HEAD: Atraumatic. NECK: Supple with extended jugular. Could not appreciate any bruits. LUNGS: Revealed crackles at the bases in the lungs. No wheezing. HEART: Revealed regular heart sounds without gallops. The point of maximal impulse (PMI) is displaced inferiorly and laterally. There is no rub. I could not appreciate any murmurs. ABDOMEN: Soft, nontender. Obese. EXTREMITIES: Revealed +2 bilateral lower leg and pedal edema. NEUROLOGIC: Negative for focal deficit. LABORATORY DATA: CBC on 06/04/2018 revealed a WBC of 9.5, hemoglobin 9.7, hematocrit 30.7, and platelets 214,000. BMP revealed a sodium of 138, potassium 4.0, chloride 99, CO2 of 33, BUN 48, creatinine 1.73, GFR 41.5, fasting glucose 90, and calcium 9.1. PT was 24.9 with an INR of 2.20. Chest x-ray on admission revealed cardiomegaly and diffuse interstitial fibrosis. Duplex of the lower extremities done on 06/02/2018 revealed no evidence of deep vein thrombosis (DVT). There is a left inguinal adenopathy with the largest lymph node in the left inguinal region, measuring 3.7 x 1.9 cm. IMPRESSION: 1. Congestive heart failure in this 72-year-old male with history of low-normal global left ventricular systolic function, atrial fibrillation that seems to be under control, and stable coronary artery disease. He has responded to the IV Lasix but has developed some deterioration of his kidney function. He will be monitored while on the diuretics. Will continue with the beta zaid for now, as well as the anticoagulation therapy and anginal therapy with statin. He is not on angiotensin-converting enzyme (CHRISTOPHE) inhibitor in view of hi underlying chronic kidney disease. If his kidney function continues to deteriorate, will decrease and/or hold the spironolactone. I will repeat his echocardiogram while in the hospital. It was a pleasure to participate in the care of . Angel Frances for his underlying cardiac condition. I will continue to monitor him along with you while in the hospital. Case was discussed with his hospitalist. KOJO
[2018-06-06 04:45] VITALS: BP 122/74
[2018-06-06 05:16] LABS: HEMATOCRIT 29.7 % (42.0-52.0); HEMOGLOBIN 9.2 g/dl (13.5-17.5); MEAN CORPUSCULAR HEMOGLOBIN 31.1 pg (27.0-33.0); MEAN CORPUSCULAR VOLUME 100.3 fl (80.0-96.0); PLATELET COUNT, AUTOMATED 171 10^3/uL (150-450); RED BLOOD COUNT 2.96 10^6/uL (4.30-6.10); WHITE BLOOD COUNT 7.6 10^3/uL (4.0-10.0)
[2018-06-06] MEDS: SLF 3 ML SYR IV SCH ×3 (05:21→22:00)
[2018-06-06 05:41] LABS: CALCIUM LEVEL 8.6 MG/DL (8.8-10.2); CREATININE FOR GFR 1.74 MG/DL (0.70-1.30); GLOMERULAR FILTRATION RATE 41.3 (>42); POTASSIUM SERUM 3.9 MEQ/L (3.5-5.1)
[2018-06-06 05:48] LABS: INR 2.47; PROTHROMBIN TIME 27.3 SECONDS (12.1-14.4)
--- NOTE | 2018-06-06 07:01 | IPNPDOC ---
Text Note Date of Service The patient was seen on 06/06/18. NOTE Subjective: Patient seen and examined at bedside. No new medical complaints. Objective: General: NAD, sitting comfortably in chair HEENT: NC/AT, EOMI Lungs: b/l crackles R>L Heart: +S1S2, irregular Abd: obese, soft, NT, +BS Ext: peripheral edema A/P: 72 yo male with extensive cardiac and medical history for decompensated congestive heart failure: # CHF - appears grossly compensated - continue to follow as per cardiology - c/s appreciated - echocardiogram pending - hx right heart/diastolic failure - creatinine improved today - further diuretic therapy pending cardiology c/s - strict i/o's, daily weight - output not accurate, patient does not always urinate in collection bowl #acute/chronic hypoxic respiratory failure - as per above - supplemental O2 as needed - states baseline is 5L at night, 6L during day #recent coagulopathy - daily INR #afib - rate controlled - cardiology c/s #CKD stage III - grossly at baseline #Lupus nephropathy #DM #HTN #COPD/interstitial lung disease #DVT prophylaxis #gait dysfunction - pending PT Dispo: Pending cardiology f/u, echocardiogram, PT eval, PFS - may need home care. VS,Fishbone, I+O VS, Fishbone, I+O Laboratory Tests 06/06/18 05:01 Red Blood Count 2.96 L, Mean Corpuscular Volume 100.3 H, Mean Corpuscular Hemoglobin 31.1, Mean Corpuscular Hemoglobin Concent 31.0 L, Red Cell Distribution Width 17.2 H, Calcium Level 8.6 L Vital Signs Date Time Temp Pulse Resp B/P (MAP) Pulse Ox O2 Delivery O2 Flow Rate FiO2 06/06/18 04:45 98.4 80 18 122/74 (90) 97 High Flow Cannula 6.0 06/03/18 04:00 94 I&O- Last 24 Hours up to 6 AM 06/06/18 05:59 Intake Total 1260 ml Output Total 1300 ml Balance -40 ml BRENDON JONES MD Jun 06, 2018 07:01
[2018-06-06] MEDS: HumaLOG INSULIN (NovoLOG) PER UNIT SC SCH ×4 (07:30→20:25)
[2018-06-06 08:00] VITALS: BP 129/66
[2018-06-06] MEDS: NYSTATIN 100,000 UNITS/GM TOPICAL PWD 15 GM TOP SCH ×2 (08:07→20:25)
[2018-06-06] MEDS: GABAPENTIN 300 MG CAP PO SCH ×3 (08:08→20:24)
[2018-06-06] MEDS: SPIRONOLACTONE 25 MG TAB PO SCH (08:08)
[2018-06-06] MEDS: oxyBUTYnin *DITROPAN XL* 5 MG TABCR PO SCH (08:08)
[2018-06-06] MEDS: OMEPRAZOLE 20 MG CAP PO SCH ×2 (08:08→20:24)
[2018-06-06] MEDS: TAMSULOSIN 0.4 MG CAP PO SCH (08:08)
[2018-06-06] MEDS: ATORVASTATIN 20 MG TAB PO SCH (08:08)
[2018-06-06] MEDS: MULTIVITAMINS/MINERALS THERAP 1 TAB PO SCH (08:09)
[2018-06-06] MEDS: FLUoxetine 20 MG CAP PO SCH (08:09)
[2018-06-06] MEDS: ASPIRIN 81 MG ENTERIC TAB PO SCH (08:09)
[2018-06-06] MEDS: FERROUS GLUCONATE 324 MG TAB PO SCH ×2 (08:09→20:25)
[2018-06-06] MEDS: predniSONE 5 MG TAB PO SCH (08:09)
[2018-06-06] MEDS: ANEXSIA, NORCO 7.5MG/325MG TABLET(HYDROCODONE/APAP) PO PRN ×2 (08:10→16:39)
[2018-06-06] MEDS: FEBUXOSTAT 40 MG TABLET (ULORIC) PO SCH (08:10)
[2018-06-06] MEDS: CYANOCOBALAMIN 500 MCG TAB PO SCH (08:10)
[2018-06-06] MEDS: CARVedilol 12.5 MG TAB PO SCH ×2 (08:11→20:25)
[2018-06-06 12:00] VITALS: BP 132/77
[2018-06-06 16:00] VITALS: BP_SYST 132
[2018-06-06] MEDS: WARFARIN SOD 3 MG TAB PO SCH (16:38)
[2018-06-06] MEDS ORDERED: FUROSEMIDE 20 MG/2 ML VIAL (J1940) IV ONE (17:00)
--- NOTE | 2018-06-06 18:58 | IPN ---
DATE: 06/06/2018 Mr. Angel Frances was seen today, he denies any chest pain or palpitations. He stated that his shortness of breath is stable. His pedal edema also is stable. There is no report of bleeding. He continues to have physical therapy. He was initially seen because of decompensated congestive heart failure. He has underlying chronic kidney disease that seems to be related to lupus. He also has underlying diffuse interstitial pulmonary fibrosis. On physical examination, patient is alert and awake, in no acute distress at rest. His vital signs this morning revealed a blood pressure of 129/66 with a pulse of 76, respirations 18-24, and maximum temperature is 98 degrees Fahrenheit with oxygen saturation of 98% on 6 liters nasal cannula. His fluid balance for 06/05/2018 was positive 240 mL. Examination of the head: Atraumatic. Neck is supple. The lungs revealed bilateral crackles but no wheezing. The heart examination revealed irregularly irregular heart sounds without gallops. The point of maximum impulse (PMI) is displaced inferiorly and laterally. There is no rub. Abdomen is soft and nontender. Extremities reveal +1 to +2 bilateral lower leg edema. Neurological examination is negative for focal deficit. LABORATORY DATA: CBC revealed a WBC of 7.6, hemoglobin 9.2, hematocrit 29.7, and platelets 171,000. BMP revealed a sodium of 136, potassium 3.9, chloride 98, CO2 33, BUN 55, creatinine 1.74, GFR 41.3, fasting glucose 80, and calcium 8.6. INR today is 2.47. IMPRESSION: 1. Decompensated congestive heart failure, diastolic versus systolic, and this has improved and remained stable. Echocardiogram is pending. 2. History of coronary artery disease. 3. History of atrial fibrillation, chronic and persistent. 4. Chronic kidney disease secondary to lupus nephropathy. 5. History of chronic obstructive pulmonary disease (COPD) and diffuse interstitial pulmonary fibrosis. 6. Anemia. 7. Hypertension. 8. Hyperlipidemia. 9. Arthritis. Mr. Angel Frances seems to be stable from a cardiac point of view. Yesterday, he did not receive any Lasix/furosemide, but did receive his spironolactone and his BUN and creatinine has improved. His medications were reviewed and I decreased the spironolactone and restarted him on a small dose of furosemide and he will be monitored. Dr. Ray will see him tomorrow, he knows him better. Please do not hesitate to call if any questions. KOJO
[2018-06-06] MEDS: MIRTAZAPINE 15 MG TAB PO SCH (20:25)
[2018-06-07] VITALS (7 sets, daily range): BP systolic 113–140; BP diastolic 64–100
[2018-06-07 05:13] LABS: HEMATOCRIT 29.6 % (42.0-52.0); HEMOGLOBIN 9.2 g/dl (13.5-17.5); MEAN CORPUSCULAR HEMOGLOBIN 30.6 pg (27.0-33.0); MEAN CORPUSCULAR HGB CONC 31.1 g/dl (32.0-36.5); MEAN CORPUSCULAR VOLUME 98.3 fl (80.0-96.0); PLATELET COUNT, AUTOMATED 169 10^3/uL (150-450); RED BLOOD COUNT 3.01 10^6/uL (4.30-6.10); WHITE BLOOD COUNT 6.5 10^3/uL (4.0-10.0)
[2018-06-07 05:29] LABS: INR 2.36; PROTHROMBIN TIME 26.3 SECONDS (12.1-14.4)
[2018-06-07 05:35] LABS: CALCIUM LEVEL 8.8 MG/DL (8.8-10.2); CREATININE FOR GFR 1.36 MG/DL (0.70-1.30); GLOMERULAR FILTRATION RATE 54.8 (>42); POTASSIUM SERUM 3.9 MEQ/L (3.5-5.1)
[2018-06-07] MEDS: SLF 3 ML SYR IV SCH ×3 (05:51→22:00)
--- NOTE | 2018-06-07 06:50 | ECHO ---
DATE OF PROCEDURE: 06/05/2018 DATE OF : 1945 AGE: 72 REFERRING PROVIDER: Dr. Fabián Stanford DRAFTER ELECTROMECHANICAL: Dr. Anirudh Ray PATIENT LOCATION: Room 3228 REASON FOR THE ECHOCARDIOGRAM: Heart failure, unspecified. 2D MEASUREMENTS: IVS: 1.1 cm LV: 6.7 cm LVPW: 1.1 cm LA: 5.1 cm Aorta: 3.7 cm IVC: 2.2 cm DOPPLER MEASUREMENTS: Peak velocity across the aortic valve: 1.9 m/s Peak velocity across the LVOT: 0.78 m/s Mitral E: 0.90 Maximum tricuspid valve velocity: 3.2 m/s 2D COMMENTS: 1. Mildly to moderately enlarged left ventricle with normal left ventricular wall thickness and probably a mildly depressed left ventricular systolic function. Left ventricular systolic ejection fraction is estimated at 45-50%. 2. Moderately enlarged left atrium. The right heart chambers appeared to be mildly enlarged. The right ventricular floor was not well visualized. Could not rule out right ventricular systolic dysfunction. 3. The atrial septum appeared to be normal in limited views without evidence of defect or shunt. 4. Borderline enlarged aortic root at 3.7 cm. 5. Trace pericardial effusion noted in limited views. 6. Mildly calcified aortic valve, leaflet excursion was not well visualized. Mildly calcified mitral annulus with normal anterior mitral valve leaflet motion. Normal tricuspid valve noted in limited views. The pulmonic valve also appeared to be normal. 7. The inferior vena cava is mildly enlarged, central venous pressure is probably elevated. 8. Pacemaker wire artifact noted in the right heart chambers in limited views. DOPPLER: It detects mild to moderate mitral regurgitation, mild tricuspid regurgitation. The calculated pulmonary artery systolic pressure varied between 40-50 mmHg. Assessment of the left ventricular diastolic function was limited in view of the underlying atrial fibrillation. Trace pulmonic regurgitation also detected. IMPRESSION: 1. Probably mildly depressed global left ventricular systolic dysfunction with mildly to moderately enlarged left ventricle. There was diffuse hypokinesis. Assessment of the left ventricular diastolic function was limited in view of the underlying atrial fibrillation. 2. Aortic valve sclerosis with trivial aortic stenosis, but no aortic regurgitation. 3. Mitral annulus calcification with moderately enlarged left atrium and mild to moderate mitral regurgitation. 4. Mild tricuspid regurgitation with moderate pulmonary hypertension. The right heart chambers appeared to be mildly enlarged in limited views. 5. Dilated inferior vena cava/IVC, central venous pressure might be elevated. 6. Pacemaker wire artifacts noted in limited views in the right heart chambers. 7. This was compared with the most recent echocardiogram done in the month of March 2018, no significant changes in the left ventricular function (LVF). The mitral regurgitation was then moderately severe. The study at that time was a better quality study. MTDD
[2018-06-07] MEDS: HumaLOG INSULIN (NovoLOG) PER UNIT SC SCH ×4 (07:10→20:28)
--- NOTE | 2018-06-07 08:32 | IPN ---
DATE: 06/07/2018 Mr. Frances tells me he is feeling better, but he actually welcomed me with his first sentence that he needs to go home by [place]. It looks like this admission was brought on principally by weakness. He tells me that his shortness of breath was not worse than the baseline. He does not know what medication he takes at home. Apparently there is a [place] visiting nurse who sets up the medications for him for 2 weeks, but based on reconciliation documented in the chart he was taking spironolactone 25 twice a day and torsemide 100 mg twice a day as well. Vital Signs: This morning, blood pressure 120/73. Heart rate has been consistently well-controlled from 60s to low 100s. No significant ventricular ectopy. Saturation 95% on 6 liters of oxygen by nasal cannula. Fluid balance yesterday was documented about 450 negative. No weight was obtained this morning as yet. His jugular venous pulse (JVP) is high. Lungs are reasonably clear, even though there is some occasional expiratory wheeze. Heart exam reveals irregularly irregular rhythm. I do not appreciate any gallop or rub. Abdomen is soft, nontender. Extremities have about 2+ edema to mid shins. Laboratory-[facility], basic metabolic panel: sodium 139, potassium 3.9, BUN 51 and creatinine 1.4 for GFR 54 and glucose was 82. Hemoglobin 9.2, hematocrit 29.6 and platelet count 169,000. INR was 2.4 ASSESSMENT/PLAN: Mr. Frances is a 72-year-old man who has established coronary artery disease, chronic atrial fibrillation and chronic diastolic congestive heart failure in the setting of advanced interstitial lung disease. He has had numerous admissions for worsening dyspnea associated with fluid retention and usually after diuretics he improves and goes home quickly, but we have not been able to maintain his condition at home. At this point I still think that we should diurese him. Even though he got a fairly small dose of furosemide yesterday I think I am going to give him a higher dose today while monitoring his renal function in the hospital. Otherwise, his blood pressure and heart rates are well-controlled. He is chronically anticoagulated. I am quite optimistic that will be able to go home by [place], but in the longer run his prognosis certainly is very poor.
[2018-06-07] MEDS: predniSONE 5 MG TAB PO SCH (08:50)
[2018-06-07] MEDS: CYANOCOBALAMIN 500 MCG TAB PO SCH (08:50)
[2018-06-07] MEDS: FLUoxetine 20 MG CAP PO SCH (08:51)
[2018-06-07] MEDS: GABAPENTIN 300 MG CAP PO SCH ×3 (08:51→20:27)
[2018-06-07] MEDS: CARVedilol 12.5 MG TAB PO SCH ×2 (08:51→20:28)
[2018-06-07] MEDS: SPIRONOLACTONE 25 MG TAB PO SCH (08:52)
[2018-06-07] MEDS: OMEPRAZOLE 20 MG CAP PO SCH ×2 (08:52→20:26)
[2018-06-07] MEDS: TAMSULOSIN 0.4 MG CAP PO SCH (08:52)
[2018-06-07] MEDS: NYSTATIN 100,000 UNITS/GM TOPICAL PWD 15 GM TOP SCH ×2 (08:53→20:28)
[2018-06-07] MEDS: ASPIRIN 81 MG ENTERIC TAB PO SCH (08:53)
[2018-06-07] MEDS: ATORVASTATIN 20 MG TAB PO SCH (08:53)
[2018-06-07] MEDS: FERROUS GLUCONATE 324 MG TAB PO SCH ×2 (08:53→20:28)
[2018-06-07] MEDS: oxyBUTYnin *DITROPAN XL* 5 MG TABCR PO SCH (08:53)
[2018-06-07] MEDS: MULTIVITAMINS/MINERALS THERAP 1 TAB PO SCH (08:53)
[2018-06-07] MEDS: FEBUXOSTAT 40 MG TABLET (ULORIC) PO SCH (08:53)
--- NOTE | 2018-06-07 09:50 | IPN ---
DATE: 06/07/2018 Angel is seen in PCU. He is on the hospitalist service. He has a history of diastolic as well as some systolic congestive heart failure (CHF), ejection fraction 45-50%, with diffuse hypokinesis on echocardiogram. Being followed by cardiology. He has had a bit of volume retention problems today and diuresis has already been augmented by cardiology. Blood pressure 140/100, pulse of 97, 97% oxygen saturation on 6 liters. Patient is alert and conversant, in no distress. No jugular venous distention (JVD). Lungs have rales both bases. Heart regular rate and rhythm, 2/6 holosystolic murmur at the apex. Abdomen is soft, nontender. No masses. 1+ peripheral edema. LABS: BUN 51, creatinine 1.3, potassium 3.9. CBC is stable. IMPRESSION: 1. Dilated cardiomyopathy with both systolic and diastolic congestive heart failure (CHF). Plan is to continue his diuresis. Diuretic dose has been augmented by cardiology. Encourage this patient to get out of bed. He is on spironolactone. 2. Atrial fibrillation. Rate is controlled. INR is 2.3. 3. Chronic kidney disease stage III. Not on CHRISTOPHE inhibitor. Probably due to the chronic kidney disease. 4. History of gout. On febuxostat 80 mg daily, which he will continue. 5. 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 Continue his steroid therapy. Continue prednisone 5 mg daily. 6. History of depression. Being aggressively treated. He is on trazodone 50 mg at bedtime, high dose fluoxetine 80 mg daily and also on Abilify 5 mg daily. 7. Hyperlipidemia. Continue atorvastatin 10 mg daily, baby aspirin 81 mg daily. 8. History of some type of urinary difficulty for which he is on Ditropan XL 15 mg daily and Flomax 0.4 mg daily. These two medicines usually work contrary to each other. I won't change them now but would suggest he might want to see a urologist as an outpatient.
[2018-06-07] MEDS: FUROSEMIDE 40 MG/4 ML VIAL (J1940) IV SCH (11:46)
[2018-06-07] MEDS: ANEXSIA, NORCO 7.5MG/325MG TABLET(HYDROCODONE/APAP) PO PRN ×2 (15:00→21:51)
[2018-06-07] MEDS ORDERED: ALBUTEROL SULFATE 2.5 MG/0.5 ML INH NEB SOLN NEB PRN (17:00)
[2018-06-07] MEDS: WARFARIN SOD 3 MG TAB PO SCH (17:38)
[2018-06-07] MEDS: MIRTAZAPINE 15 MG TAB PO SCH (20:27)
[2018-06-07] MEDS: ALBUTEROL SULFATE 2.5 MG/0.5 ML INH NEB SOLN NEB SCH (21:14)
[2018-06-08] VITALS (7 sets, daily range): BP systolic 119–168; BP diastolic 72–80
[2018-06-08] MEDS: FUROSEMIDE 40 MG/4 ML VIAL (J1940) IV SCH ×3 (00:11→16:08)
[2018-06-08] MEDS: ALBUTEROL SULFATE 2.5 MG/0.5 ML INH NEB SOLN NEB SCH ×4 (02:00→20:41)
[2018-06-08] MEDS: SLF 3 ML SYR IV SCH ×2 (05:51→13:13)
[2018-06-08] MEDS: ANEXSIA, NORCO 7.5MG/325MG TABLET(HYDROCODONE/APAP) PO PRN ×2 (06:36→16:09)
[2018-06-08 06:39] LABS: HEMATOCRIT 29.7 % (42.0-52.0); HEMOGLOBIN 9.2 g/dl (13.5-17.5); MEAN CORPUSCULAR HEMOGLOBIN 30.5 pg (27.0-33.0); MEAN CORPUSCULAR VOLUME 98.3 fl (80.0-96.0); PLATELET COUNT, AUTOMATED 180 10^3/uL (150-450); RED BLOOD COUNT 3.02 10^6/uL (4.30-6.10); WHITE BLOOD COUNT 6.5 10^3/uL (4.0-10.0)
[2018-06-08 06:51] LABS: INR 2.68; PROTHROMBIN TIME 29.1 SECONDS (12.1-14.4)
[2018-06-08 06:59] LABS: CALCIUM LEVEL 8.9 MG/DL (8.8-10.2); CREATININE FOR GFR 1.3 MG/DL (0.70-1.30); GLOMERULAR FILTRATION RATE 57.8 (>42); POTASSIUM SERUM 3.8 MEQ/L (3.5-5.1)
[2018-06-08] MEDS: HumaLOG INSULIN (NovoLOG) PER UNIT SC SCH ×4 (07:30→21:00)
--- NOTE | 2018-06-08 08:19 | IPN ---
DATE: 06/08/2018 Mr. Frances tells me he is feeling better today than he did yesterday. He was able to sleep well without any paroxysmal nocturnal dyspnea (PND) and his dyspnea is not too far from his baseline. Unfortunately, he continues to have very prominent peripheral edema. PHYSICAL EXAMINATION: Blood pressure 119/73. Heart rate has been in the 70s. His atrial fibrillation is well-controlled throughout the day. Saturation is 96% on 6 liters of oxygen by nasal cannula. His fluid balance yesterday was documented and was negative 800. Weight is 118.1 kg, which is better than 2 days ago, but actually only modestly improved since admission. His jugular venous pulse (JVP) is elevated. Lungs are clear today, even though he still has some occasional wheeze and rhonchi. Heart exam reveals irregular rhythm. I do not appreciate any gallop or rub or murmur. Abdomen is obese, but soft. There is still very prominent peripheral edema all the way to his knees. Neurologically he is intact other than generalized weakness. Laboratory-[facility], hemoglobin 9.2, hematocrit 29.7, platelet count 180,000. Basic metabolic panel: Sodium 139, potassium 3.8, BUN 44, creatinine 1.3 and glucose 78. ASSESSMENT/PLAN: Mr. Frances is a 72-year-old man who has interstitial lung disease and lupus nephritis and has recurrent bouts of volume overloaded state due to the diagnoses above plus diastolic congestive heart failure. Currently he is still volume overloaded, but yesterday had a good day. He accomplished modest diuresis and simultaneously his renal function if anything slightly improved. I am going to increase the dose of furosemide to three times a day today. His atrial fibrillation is well rate controlled and he has been chronically anticoagulated. He is very hopeful that he will be able to get home by [place], which I think can be realistic. Tentatively we will be shooting for discharge on . I am off until this weekend and Dr. Acevedo will be covering starting tomorrow morning.
[2018-06-08] MEDS: NYSTATIN 100,000 UNITS/GM TOPICAL PWD 15 GM TOP SCH ×2 (08:41→20:32)
[2018-06-08] MEDS: predniSONE 5 MG TAB PO SCH (08:44)
[2018-06-08] MEDS: FERROUS GLUCONATE 324 MG TAB PO SCH ×2 (08:44→20:30)
[2018-06-08] MEDS: ATORVASTATIN 20 MG TAB PO SCH (08:44)
[2018-06-08] MEDS: FEBUXOSTAT 40 MG TABLET (ULORIC) PO SCH (08:44)
[2018-06-08] MEDS: MULTIVITAMINS/MINERALS THERAP 1 TAB PO SCH (08:44)
[2018-06-08] MEDS: ASPIRIN 81 MG ENTERIC TAB PO SCH (08:44)
[2018-06-08] MEDS: SPIRONOLACTONE 25 MG TAB PO SCH (08:45)
[2018-06-08] MEDS: TAMSULOSIN 0.4 MG CAP PO SCH (08:45)
[2018-06-08] MEDS: CARVedilol 12.5 MG TAB PO SCH ×2 (08:45→20:29)
[2018-06-08] MEDS: oxyBUTYnin *DITROPAN XL* 5 MG TABCR PO SCH (08:45)
[2018-06-08] MEDS: OMEPRAZOLE 20 MG CAP PO SCH ×2 (08:46→20:29)
[2018-06-08] MEDS: GABAPENTIN 300 MG CAP PO SCH ×3 (08:46→20:29)
[2018-06-08] MEDS: CYANOCOBALAMIN 500 MCG TAB PO SCH (08:46)
[2018-06-08] MEDS: FLUoxetine 20 MG CAP PO SCH (08:46)
[2018-06-08] MEDS: WARFARIN SOD 3 MG TAB PO SCH (16:07)
--- NOTE | 2018-06-08 20:17 | IPN ---
DATE: 06/08/2018 The patient was seen and examined. No acute events overnight. Reported respirations much improved. Denies any chest pain, pressure or discomfort. Denies any fevers or chills. VITAL SIGNS: Temperature 97.7, pulse 78, respirations 18, blood pressure 140/72, pulse oximetry 96% on 4 liters nasal cannula. LABORATORY DATA: WBC 6.5, hemoglobin and hematocrit 9.0 and 29.7, platelets 180. Chemistry: Sodium 139, potassium 3.8, chloride 130, bicarbonate 33, BUN 34, creatinine 1.3. PHYSICAL EXAMINATION: GENERAL: The patient is alert, comfortable, in no acute distress. HEENT: Normocephalic, atraumatic. PULMONARY: Minimal crackles bilaterally. CARDIAC: Irregular. S1, S2. ABDOMEN: Obese, soft, nontender. Positive bowel sounds. EXTREMITIES: 2+ bilateral lower extremity edema. ASSESSMENT AND PLAN: This is a 72-year-old male patient with underlying medical history of atrial fibrillation on anticoagulation, right sided diastolic congestive heart failure (CHF), chronic kidney disease stage III, lupus with lung involvement, nephrotic membranous nephropathy, diabetes mellitus, hypertension, interstitial lung disease, chronic obstructive pulmonary disease (COPD) on 6 liters of oxygen at home, who presented with worsening lower extremity edema and shortness of breath. 1. Acute congestive heart failure (CHF) exacerbation with diastolic dysfunction. Cardiology consulted. Diuresis as per cardiology. Strict input and output, daily weight. Continue spironolactone. Monitor kidney function. Oxygen supplementation. Continue aspirin and statin. 2. Acute on chronic hypoxic respiratory failure. Oxygen supplementation. We will monitor. Currently at baseline. 3. Atrial fibrillation. Cardiology consulted. Continue Coumadin. Followup INR. Continue beta zaid. 4. Chronic kidney disease stage III, currently at baseline. We will monitor. 5. Lupus nephropathy. The patient will followup. We will monitor kidney function. 6. Diabetes. Insulin as ordered. 7. Hypertension. Continue current medication. The patient is on Coreg, spironolactone. 8. Chronic obstructive pulmonary disease (COPD). The patient currently does not have any wheeze. Continue current medications. 9. Deep vein thrombosis (DVT) prophylaxis. The patient is on Coumadin. 10. Gait instability. Physical therapy (PT). 11. Depression. Continue current medications. DISPOSITION: Likely discharge in the next 2 to 3 days pending further cardiology input.
[2018-06-08] MEDS: MIRTAZAPINE 15 MG TAB PO SCH (20:30)
[2018-06-09] VITALS (7 sets, daily range): BP systolic 120–144; BP diastolic 60–85; O2SAT 98
[2018-06-09] MEDS: SLF 3 ML SYR IV SCH ×4 (00:05→21:13)
[2018-06-09] MEDS: FUROSEMIDE 40 MG/4 ML VIAL (J1940) IV SCH ×3 (00:29→16:59)
[2018-06-09] MEDS: ALBUTEROL SULFATE 2.5 MG/0.5 ML INH NEB SOLN NEB SCH ×4 (02:00→20:00)
[2018-06-09 06:00] LABS: HEMATOCRIT 30.5 % (42.0-52.0); HEMOGLOBIN 9.4 g/dl (13.5-17.5); MEAN CORPUSCULAR HEMOGLOBIN 30.7 pg (27.0-33.0); MEAN CORPUSCULAR HGB CONC 30.8 g/dl (32.0-36.5); MEAN CORPUSCULAR VOLUME 99.7 fl (80.0-96.0); PLATELET COUNT, AUTOMATED 174 10^3/uL (150-450); RED BLOOD COUNT 3.06 10^6/uL (4.30-6.10); WHITE BLOOD COUNT 6.5 10^3/uL (4.0-10.0)
[2018-06-09 06:12] LABS: INR 2.85; PROTHROMBIN TIME 30.5 SECONDS (12.1-14.4)
[2018-06-09 06:21] LABS: CALCIUM LEVEL 9.2 MG/DL (8.8-10.2); CREATININE FOR GFR 1.32 MG/DL (0.70-1.30); GLOMERULAR FILTRATION RATE 56.8 (>42); POTASSIUM SERUM 3.5 MEQ/L (3.5-5.1)
[2018-06-09] MEDS: HumaLOG INSULIN (NovoLOG) PER UNIT SC SCH ×4 (07:30→21:00)
[2018-06-09] MEDS ORDERED: POTASSIUM CHLORIDE 10 MEQ SR TABLET PO ONE (07:30)
[2018-06-09] MEDS: CYANOCOBALAMIN 500 MCG TAB PO SCH (08:04)
[2018-06-09] MEDS: NYSTATIN 100,000 UNITS/GM TOPICAL PWD 15 GM TOP SCH ×2 (08:04→21:00)
[2018-06-09] MEDS: FLUoxetine 20 MG CAP PO SCH (08:04)
[2018-06-09] MEDS: ANEXSIA, NORCO 7.5MG/325MG TABLET(HYDROCODONE/APAP) PO PRN ×3 (08:04→21:13)
[2018-06-09] MEDS: oxyBUTYnin *DITROPAN XL* 5 MG TABCR PO SCH (08:05)
[2018-06-09] MEDS: FEBUXOSTAT 40 MG TABLET (ULORIC) PO SCH (08:05)
[2018-06-09] MEDS: predniSONE 5 MG TAB PO SCH (08:06)
[2018-06-09] MEDS: GABAPENTIN 300 MG CAP PO SCH ×3 (08:06→21:11)
[2018-06-09] MEDS: OMEPRAZOLE 20 MG CAP PO SCH ×2 (08:06→21:12)
[2018-06-09] MEDS: ATORVASTATIN 20 MG TAB PO SCH (08:06)
[2018-06-09] MEDS: TAMSULOSIN 0.4 MG CAP PO SCH (08:06)
[2018-06-09] MEDS: SPIRONOLACTONE 25 MG TAB PO SCH (08:07)
[2018-06-09] MEDS: MULTIVITAMINS/MINERALS THERAP 1 TAB PO SCH (08:07)
[2018-06-09] MEDS: FERROUS GLUCONATE 324 MG TAB PO SCH ×2 (08:07→21:12)
[2018-06-09] MEDS: ASPIRIN 81 MG ENTERIC TAB PO SCH (08:07)
[2018-06-09] MEDS: CARVedilol 12.5 MG TAB PO SCH ×2 (08:09→21:12)
[2018-06-09] MEDS ORDERED: WARFARIN SOD 2 MG TAB PO SCH (17:00)
--- NOTE | 2018-06-09 18:47 | IPNPDOC ---
Text Note Date of Service The patient was seen on 06/09/18. NOTE The patient was seen and examined. No acute events overnight. Reported respirations much improved. Denies any chest pain, pressure or discomfort. Denies any fevers or chills. doing well with PT PHYSICAL EXAMINATION: GENERAL: The patient is alert, comfortable, in no acute distress. HEENT: Normocephalic, atraumatic. PULMONARY: Minimal crackles bilaterally. CARDIAC: Irregular. S1, S2. ABDOMEN: Obese, soft, nontender. Positive bowel sounds. EXTREMITIES: 2+ bilateral lower extremity edema. improved compared to yesterday ASSESSMENT AND PLAN: This is a 72-year-old male patient with underlying medical history of atrial fibrillation on anticoagulation, right sided diastolic congestive heart failure (CHF), chronic kidney disease stage III, lupus with lung involvement, nephrotic membranous nephropathy, diabetes mellitus, hypertension, interstitial lung disease, chronic obstructive pulmonary disease (COPD) on 6 liters of oxygen at home, who presented with worsening lower extremity edema and shortness of breath. 1. Acute congestive heart failure (CHF) exacerbation with diastolic dysfunction. Cardiology consulted. Diuresis as per cardiology. Strict input and output, daily weight. Continue spironolactone. Monitor kidney function. Oxygen supplementation. Continue aspirin and statin. 2. Acute on chronic hypoxic respiratory failure. Oxygen supplementation. We will monitor. Currently at baseline. 3. Atrial fibrillation. Cardiology consulted. Continue Coumadin. Followup INR. Continue beta zaid. 4. Chronic kidney disease stage III, currently at baseline. We will monitor. 5. Lupus nephropathy. The patient will followup. We will monitor kidney function. 6. Diabetes. Insulin as ordered. 7. Hypertension. Continue current medication. The patient is on Coreg, spironolactone. 8. Chronic obstructive pulmonary disease (COPD). The patient currently does not have any wheeze. Continue current medications. 9. Deep vein thrombosis (DVT) prophylaxis. The patient is on Coumadin. 10. Gait instability. Physical therapy (PT). 11. Depression. Continue current medications. DISPOSITION: Likely discharge in the next 2 to 3 days pending further cardiology input. VS,Fishbone, I+O VS, Fishbone, I+O Laboratory Tests 06/09/18 05:40 Red Blood Count 3.06 L, Mean Corpuscular Volume 99.7 H, Mean Corpuscular Hemoglobin 30.7, Mean Corpuscular Hemoglobin Concent 30.8 L, Red Cell Distribution Width 17.0 H, Calcium Level 9.2 Vital Signs Date Time Temp Pulse Resp B/P (MAP) Pulse Ox O2 Delivery O2 Flow Rate FiO2 06/09/18 16:00 6.0 06/09/18 14:36 18 Nasal Cannula 06/09/18 08:34 98 06/09/18 08:09 70 144/70 06/09/18 08:00 98.0 06/03/18 04:00 94 I&O- Last 24 Hours up to 6 AM 06/09/18 06:00 Intake Total 960 ml Output Total 1100 ml Balance -140 ml LILLY ROY MD Jun 09, 2018 18:47
[2018-06-09] MEDS: MIRTAZAPINE 15 MG TAB PO SCH (21:11)
[2018-06-10] MEDS: ALBUTEROL SULFATE 2.5 MG/0.5 ML INH NEB SOLN NEB SCH ×2 (02:00→07:08)
[2018-06-10 04:00] VITALS: BP 125/78
[2018-06-10] MEDS: ANEXSIA, NORCO 7.5MG/325MG TABLET(HYDROCODONE/APAP) PO PRN ×2 (04:42→11:00)
[2018-06-10] MEDS: SLF 3 ML SYR IV SCH (05:15)
[2018-06-10 06:15] LABS: HEMATOCRIT 30.1 % (42.0-52.0); HEMOGLOBIN 9.3 g/dl (13.5-17.5); MEAN CORPUSCULAR HEMOGLOBIN 30.4 pg (27.0-33.0); MEAN CORPUSCULAR HGB CONC 30.9 g/dl (32.0-36.5); MEAN CORPUSCULAR VOLUME 98.4 fl (80.0-96.0); PLATELET COUNT, AUTOMATED 168 10^3/uL (150-450); RED BLOOD COUNT 3.06 10^6/uL (4.30-6.10); WHITE BLOOD COUNT 5.6 10^3/uL (4.0-10.0)
[2018-06-10 06:27] LABS: INR 2.86; PROTHROMBIN TIME 30.7 SECONDS (12.1-14.4)
[2018-06-10 06:38] LABS: CALCIUM LEVEL 9.2 MG/DL (8.8-10.2); CREATININE FOR GFR 1.38 MG/DL (0.70-1.30); GLOMERULAR FILTRATION RATE 53.9 (>42); POTASSIUM SERUM 3.9 MEQ/L (3.5-5.1)
[2018-06-10] MEDS: HumaLOG INSULIN (NovoLOG) PER UNIT SC SCH ×2 (07:30→12:00)
[2018-06-10 08:00] VITALS: BP 139/77
[2018-06-10] MEDS: FUROSEMIDE 40 MG/4 ML VIAL (J1940) IV SCH ×2 (08:43)
[2018-06-10] MEDS: ATORVASTATIN 20 MG TAB PO SCH (08:44)
[2018-06-10] MEDS: NYSTATIN 100,000 UNITS/GM TOPICAL PWD 15 GM TOP SCH (08:44)
[2018-06-10] MEDS: FEBUXOSTAT 40 MG TABLET (ULORIC) PO SCH (08:44)
[2018-06-10] MEDS: oxyBUTYnin *DITROPAN XL* 5 MG TABCR PO SCH (08:44)
[2018-06-10 08:45] VITALS: BP 139/77
[2018-06-10] MEDS: FLUoxetine 20 MG CAP PO SCH (08:45)
[2018-06-10] MEDS: GABAPENTIN 300 MG CAP PO SCH (08:45)
[2018-06-10] MEDS: CYANOCOBALAMIN 500 MCG TAB PO SCH (08:45)
[2018-06-10] MEDS: ASPIRIN 81 MG ENTERIC TAB PO SCH (08:45)
[2018-06-10] MEDS: CARVedilol 12.5 MG TAB PO SCH (08:45)
[2018-06-10] MEDS: OMEPRAZOLE 20 MG CAP PO SCH (08:45)
[2018-06-10] MEDS: MULTIVITAMINS/MINERALS THERAP 1 TAB PO SCH (08:45)
[2018-06-10] MEDS: SPIRONOLACTONE 25 MG TAB PO SCH (08:45)
[2018-06-10] MEDS: TAMSULOSIN 0.4 MG CAP PO SCH (08:45)
[2018-06-10] MEDS: predniSONE 5 MG TAB PO SCH (08:46)
[2018-06-10] MEDS: FERROUS GLUCONATE 324 MG TAB PO SCH (08:46)
[2018-06-10] MEDS ORDERED: COUM2TAB22 PO (10:06)
[2018-06-10] MEDS ORDERED: ALDA25TA2 PO (10:06)
--- NOTE | 2018-06-10 11:22 | DSES ---
DATE OF ADMISSION: 06/02/2018 DATE OF DISCHARGE: 06/10/2018 MONUMENT MASON: Dr. Ray and Dr. Acevedo PRIMARY CARE PROVIDER: Deepak Conti MD FINAL DIAGNOSES: Acute congestive heart failure (CHF) exacerbation with diastolic dysfunction. Acute on chronic hypoxic respiratory failure. Atrial fibrillation. Chronic kidney disease (CKD) stage III. Lupus nephropathy. Diabetes. Hypertension. Chronic obstructive pulmonary disease (COPD). Gait instability. Depression. HISTORY OF PRESENT ILLNESS: This is a 72-year-old male patient with underlying medical history of atrial fibrillation on anticoagulation, right sided as well as diastolic congestive heart failure, CKD stage III, lupus involving lung and also nephrotic membranous nephropathy, diabetes mellitus, hypertension, interstitial lung disease, COPD on 6 liters of oxygen at home, who presented with shortness of breath and severe lower extremity edema for the past three days, progressively worsening difficulty. [facility] The patient noticed over the past week he has gained approximately 7 pounds. Denies any chest pain, palpitations, or syncope. Denies any increasing sodium or water intake. Subsequently, the patient was admitted. He was also noted to have increase in INR. HOSPITAL COURSE: The patient was admitted to the hospital. Cardiology was consulted. The patient was diuresed. The patient's blood pressure medication and diuretics have been adjusted. Spironolactone has been added. Oxygen supplementation was provided and progressively tapered to a baseline of 6 liters. Physical therapy has been ordered. Coumadin has been adjusted. The patient's beta-zaid was continued. The patient's home medications were also continued. The patient's condition progressively improved and he has requested to be discharged today, he stated that he is almost back to baseline. The patient passed physical therapy. Case was discussed with both Dr. Ray and Dr. Acevedo who is comfortable discharging the patient on home dose of torsemide, adding spironolactone. Subsequently, the patient is discharged. VITAL SIGNS: Temperature 96.9, pulse 72, respirations 19, blood pressure 139/77, pulse oximetry 99% on 6 liters nasal cannula. LABORATORY: WBC 5.6, hemoglobin and hematocrit 9.3/30.1, platelets 168. Chemistries: Sodium 138, potassium 3.9, chloride 98, bicarb 35, BUN 44, creatinine 1.3. PHYSICAL EXAMINATION: GENERAL: Patient alert and comfortable in no acute distress. HEENT: Normocephalic, atraumatic. PULMONARY: Minimal crackles bilaterally. CARDIAC: Irregular, S1 and S2. ABDOMEN: Soft, obese, nontender. Positive bowel sounds. EXTREMITIES: 2+ bilateral lower extremity edema, but has been progressively improved and skin is showing some wrinkling. DISCHARGE MEDICATIONS: - spironolactone 25 mg by mouth daily - Coumadin decreased to 2 mg by mouth daily - acarbose 25 mg by mouth with meals - acetaminophen 500 mg by mouth every 8 hours as needed - [place] 10/325 mg by mouth two tablets three times a day as needed - ProAir inhalation every 4 hours as needed - ammonium lactate topical twice a day as needed - Abilify 5 mg by mouth daily - artificial tears twice a day as needed - aspirin 81 mg by mouth daily - Lipitor 20 mg by mouth daily - calcium with vitamin D by mouth twice a day - Coreg 12.5 mg by mouth twice a day - vitamin B12 1000 mcg by mouth daily - cyclophosphamide 50 mg by mouth twice a day - vitamin D 50,000 units by mouth weekly - Uloric 80 mg by mouth daily - ferrous sulfate 324 mg by mouth twice a day - fluoxetine 80 mg by mouth daily - gabapentin 600 mg by mouth three times a day - losartan 25 mg by mouth daily - Remeron 30 mg by mouth at bedtime - multivitamin one tablet by mouth daily - omeprazole 40 mg by mouth twice a day - oxybutynin 15 mg by mouth daily - potassium chloride 20 mEq by mouth daily - prednisone 5 mg by mouth daily - Procrit weekly injection - ranitidine 150 mg by mouth twice a day - Flomax 0.4 mg by mouth daily - torsemide 100 mg by mouth twice a day - trazodone 50 mg by mouth at bedtime as needed - Ambien 5 mg by mouth at bedtime as needed DISCHARGE INSTRUCTIONS: Please follow-up with primary care provider in seven days. Please seen cardiology in seven days, Dr. Acevedo or Dr. Ray. Check basic metabolic panel with primary care provider in seven days. Further adjustment of diuretic as per primary care provider and cardiology. Daily weight. Call provider if weight increases more than 5 pounds. Return to the hospital if symptoms worsen. Follow-up with nephrology in seven to ten days.
[2018-06-10 12:00] VITALS: BP 121/75
--- NOTE | 2018-06-11 05:03 | IPN ---
DATE: 06/09/2018 Mr. Angel Frances was seen this evening. He was sitting in a chair in no acute distress at rest. He stated that he is ready to go home, and he was cleared today by physical therapy. He denies any chest pain, and his shortness of breath has improved. His pedal edema also seems to have improved significantly since the last time he was seen here. There is no report of bleeding. He was initially admitted with heart failure, and his echocardiogram revealed a mildly depressed global left ventricular systolic function. 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 PHYSICAL EXAMINATION: Patient is alert and oriented, in no acute distress at rest, and his most recent vital signs revealed a blood pressure of 124/76 with pulse of 72, respirations 18-22, and his maximum temperature is 97.8 degrees Fahrenheit with an oxygen saturation of 98% on 6 liters nasal canula. He has a negative fluid balance of 190 mL for 06/08/2018, and so far today, he has a negative fluid balance of 765 mL. His weight yesterday was 118.1 kg and today is 116.7 kg. Examination of the head: Atraumatic. Neck is supple, and no jugular venous distension (JVD) appreciated while sitting up. The lungs revealed bilateral dry crackles. There is decreased breath sound on the left base. The heart examination revealed an irregular heart sound without gallops. The point of maximal impulse (PMI) is displaced inferiorly and laterally. There is no rub. Abdomen is soft and nontender. Extremities revealed +1 bilateral ankle edema. Neurological examination grossly is negative for focal deficit. LABS: BMP done today revealed a sodium of 138, potassium 3.5, chloride 97, CO2 of 35, BUN 46, creatinine 1.32, GFR 56.8, and fasting glucose 86 with a calcium of 9.2. CBC done today revealed a WBC of 6.5, hemoglobin 9.4, hematocrit 30.5, and platelets 174,000. PT today was 30.5 with an INR of 2.85. IMPRESSION: Mr. Angel Frances seems to be stable from a cardiac point of view, and his heart failure has improved significantly. We have discussed about low-salt diet once discharged home. He will continue current medications, and he can resume his oral furosemide once he goes home. He will continue with the beta-zaid as well as the spironolactone. He is not a candidate for angiotensin-converting enzyme (CHRISTOPHE) inhibitor or ARB in view of his underlying chronic kidney disease (CKD). He will continue his Coumadin. His INR seems to be therapeutic. His blood pressure is under control. He is also on a statin. It was a pleasure to participate in the care of Mr. Angel Frances for his underlying cardiac condition. He appears to be stable, and his condition has improved significantly. Please do not hesitate to call if any questions. Upon discharge, he will call the office for an appointment. KOJO
== END 2018-06-10 15:52 | disposition home health service (06) | DRG 291 ==
LOC: M ED 10:28 → M ED INP 14:31 → M PCU 15:46
PROVIDERS: ADMIT Internal Medicine; ATTEND Hospitalist
DX: I13.0 Hypertensive heart and chronic kidney disease with heart failure and stage 1 through stage 4 chronic kidney disease, or unspecified chronic kidney disease (principal); J96.21 Acute and chronic respiratory failure with hypoxia; I50.21 Acute systolic (congestive) heart failure; J18.9 Pneumonia, unspecified organism; J44.1 Chronic obstructive pulmonary disease with (acute) exacerbation; N04.2 Nephrotic syndrome with diffuse membranous glomerulonephritis; N18.3 Chronic kidney disease, stage 3 (moderate); D50.9 Iron deficiency anemia, unspecified; I48.2 Chronic atrial fibrillation; E11.9 Type 2 diabetes mellitus without complications; F32.9 Major depressive disorder, single episode, unspecified; M32.14 Glomerular disease in systemic lupus erythematosus; Z79.01 Long term (current) use of anticoagulants; Z79.899 Other long term (current) drug therapy; Z79.82 Long term (current) use of aspirin; Z88.8 Allergy status to other drugs, medicaments and biological substances; M32.13 Lung involvement in systemic lupus erythematosus; I25.10 Atherosclerotic heart disease of native coronary artery without angina pectoris; Z66 Do not resuscitate

== ENCOUNTER 2018-09-21 03:27 | Inpatient (IN) | payer OTHER, MEDICARE ==
[~2018-09-21] VITALS: Ht 172.7 cm; Wt 118.3 kg
[2018-09-21] VITALS (15 sets, daily range): BP systolic 79–140; BP diastolic 43–77
[~2018-09-21 03:27] MED LIST changes: -/ADVA50050; -/IPRA3SP; -/MOXI40TA; -/TIOT18INH; -/WARF5TA OR; +ADVA1AER2; -AMLO10TA4 PO; +AMLO10TA5 PO; +ARIP1TAB6 PO; -ARIP5TA PO; +ATRO1SOL13; +AVEL1TAB2; -BUME2TAB PO; +BUME2TAB3 PO; +COUM1TAB17 OR; +COUM2TAB22 PO; -CYCL25TA PO; +CYCL60CA PO; -DILT240C PO; +DILT240C47 PO; -GABA600T PO; +GABA600T4 PO; +LOSA25TA14 PO; -LOSA25TA33 PO; +PRED5PAK PO; +PRED5TA PO; +SERT-141 PO; -SERT50TA PO; +SPIR1CAP
[2018-09-21] MEDS ORDERED: IPRATROPIUM 0.5MG/ALBUTEROL 2.5MG INH SOL UD 3ML (DUONEB)(J7620) NEB PRN (03:45)
[2018-09-21] MEDS ORDERED: ACETAMINOPHEN TAB 650MG DOSE (2X325MG) PO ONE (04:00)
[2018-09-21] MEDS ORDERED: FUROSEMIDE 40 MG/4 ML VIAL (J1940) IV ONE (04:00)
[2018-09-21 04:03] LABS: BASO % 0.2 % (0.0-1.0); EOS # 0.2 10^3/uL (0.0-0.50); EOS % 1.3 % (0.0-3.0); HEMATOCRIT 36.1 % (42.0-52.0); HEMOGLOBIN 11.2 g/dl (13.5-17.5); LYMPH # 1.6 10^3/uL (1.5-4.5); LYMPH % 12.7 % (24.0-44.0); MEAN CORPUSCULAR HEMOGLOBIN 28.5 pg (27.0-33.0); MEAN CORPUSCULAR VOLUME 91.9 fl (80.0-96.0); MONO # 1.3 10^3/uL (0.0-0.8); MONO % 10.1 % (0.0-5.0); NEUTROPHILS # 9.3 10^3/uL (1.8-7.7); NEUTROPHILS % 75.4 % (36.0-66.0); PLATELET COUNT, AUTOMATED 255 10^3/uL (150-450); RED BLOOD COUNT 3.93 10^6/uL (4.30-6.10); WHITE BLOOD COUNT 12.4 10^3/uL (4.0-10.0)
[2018-09-21 04:04] LABS: ABG BASE EXCESS -0.1 (-2.0-2.0); ABG HCO3 25.2 MEQ/L (22.0-26.0); ABG O2 SATURATION 91.1 % (95.0-99.0); ABG PARTIAL PRESSURE CO2 43.7 mmHg (35.0-45.0); ABG PARTIAL PRESSURE O2 64.7 mmHg (75.0-100.0); ABG STANDARD HCO3 24.3 MEQ/L (22.0-26.0); ABG TOTAL CO2 26.6 MEQ/L (23.0-31.0); ABG pH (ARTERIAL) 7.379 UNITS (7.350-7.450)
[2018-09-21 04:35] LABS: ALBUMIN 3.1 GM/DL (3.2-5.2); ALT/SGPT 12 U/L (12-78); BILIRUBIN,DIRECT 0.2 MG/DL (0.0-0.2); BILIRUBIN,TOTAL 0.4 MG/DL (0.2-1.0); BLOOD UREA NITROGEN 65 MG/DL (7-18); CALCIUM LEVEL 8.8 MG/DL (8.8-10.2); CARBON DIOXIDE LEVEL 29 MEQ/L (21-32); CHLORIDE LEVEL 101 MEQ/L (98-107); CPK CREATINE PHOSPHOKINASE 41 U/L (39-308); CREATININE FOR GFR 2.75 MG/DL (0.70-1.30); GLOMERULAR FILTRATION RATE 24.3 (>42); GLUCOSE, FASTING 148 MG/DL (70-100); MB/CK RELATIVE INDEX 5.37 (< OR =4); NT-PRO BNP 7946 PG/ML (<125); POTASSIUM SERUM 4.9 MEQ/L (3.5-5.1); SODIUM LEVEL 138 MEQ/L (136-145); TROPONIN I < 0.02 NG/ML (< 0.10)
[2018-09-21 04:39] LABS: INFLUENZA A AMPLIFICATION NEGATIVE (NEGATIVE); INFLUENZA B AMPLIFICATION NEGATIVE (NEGATIVE)
[2018-09-21] MEDS ORDERED: ALBUTEROL SULFATE 2.5 MG/0.5 ML INH NEB SOLN NEB PRN (06:00)
[2018-09-21 06:08] LABS: INR 2.78; PROTHROMBIN TIME 29.9 SECONDS (12.1-14.4)
[2018-09-21 06:09] LABS: PARTIAL THROMBOPLASTIN TIME 58.7 SECONDS (25.4-37.6)
[2018-09-21] MEDS ORDERED: DEXTROSE 50% 50 ML SYRINGE IV PRN (06:15)
[2018-09-21] MEDS ORDERED: ACETAMINOPHEN TAB 650MG DOSE (2X325MG) PO PRN (06:15)
[2018-09-21] MEDS ORDERED: ONDANSETRON 4MG/2ML VIAL (J2405) IV PRN (06:15)
[2018-09-21] MEDS ORDERED: GLUCAGON FOR INJ 1 MG VIAL (J1610) SC PRN (06:15)
[2018-09-21] MEDS ORDERED: GLUCOSE 4 GM CHEW TABLET PO PRN (06:15)
[2018-09-21 06:27] LABS: COMPLEMENT C3 120 MG/DL (90-180); COMPLEMENT C4 23 MG/DL (10-40)
[2018-09-21] MEDS ORDERED: WARF-58 PO (06:35)
[2018-09-21] MEDS ORDERED: ALBU83IN INH (06:35)
[2018-09-21] MEDS ORDERED: ATOR1TAB21 PO (06:35)
[2018-09-21] MEDS ORDERED: WARF4TAB51 PO (06:35)
[2018-09-21] MEDS ORDERED: SLOWTAB2 PO (06:35)
[2018-09-21] MEDS ORDERED: SPIR-10 PO (06:35)
[2018-09-21] MEDS ORDERED: CALCTAB68 PO (06:35)
[2018-09-21] MEDS ORDERED: BACITAB PO (06:35)
[2018-09-21] MEDS ORDERED: NITR4TASL SL (06:35)
[2018-09-21] MEDS ORDERED: METO1TAB33 PO (06:35)
[2018-09-21] MEDS ORDERED: ASPI1TAB15 PO (06:35)
[2018-09-21] MEDS ORDERED: OMEP40CA2 PO (06:35)
[2018-09-21] MEDS: cefTRIAXone SOD 1 GM in D5W MINI-BAG PLUS 50 ML IV SCH (06:44)
[2018-09-21 06:45] LABS: POTASSIUM RANDOM URINE 21.9 MEQ/L
[2018-09-21] MEDS ORDERED: traZODone 50 MG TAB PO PRN (06:45)
[2018-09-21] MEDS ORDERED: POLYVINYL ALCOHOL OPHTH SOLN 15 ML(LIQUITEARS) OU PRN (06:45)
[2018-09-21] MEDS ORDERED: NITROGLYCERIN 0.4 MG SUBL TABLET SL PRN (06:45)
[2018-09-21 06:52] LABS: APPEARANCE, URINE CLEAR (CLEAR); BACTERIA, URINE AUTO NEGATIVE (NEGATIVE); BILIRUBIN, URINE AUTO NEGATIVE (NEGATIVE); BLOOD, URINE BLOOD 1+ (NEGATIVE); COLOR, URINE STRAW (YELLOW); GLUCOSE, URINE (UA) AUTO NEGATIVE (NEGATIVE); KETONE, URINE AUTO NEGATIVE (NEGATIVE); LEUKOCYTE ESTERASE, URINE AUTO NEGATIVE (NEGATIVE); NITRITE, URINE AUTO NEGATIVE (NEGATIVE); PROTEIN, URINE AUTO 1+ mg/dL (NEGATIVE); RBC, URINE AUTO 4 /HPF (0-3); SPECIFIC GRAVITY URINE AUTO 1.009 (1.002-1.035); SQUAMOUS EPITHELIAL CELL UR AU 0 /HPF (0-6); UROBILINOGEN, URINE AUTO 0.2 mg/dL (0.0-2.0); WBC, URINE AUTO 5 /HPF (0-3)
[2018-09-21] MEDS: methylPREDNISolone INJ 40 MG/1 ML VIAL (J2920) IV SCH ×2 (06:52→12:59)
[2018-09-21] MEDS: IPRATROPIUM 0.5MG/ALBUTEROL 2.5MG INH SOL UD 3ML (DUONEB)(J7620) NEB SCH ×4 (07:08→20:00)
--- NOTE | 2018-09-21 07:49 | HPE ---
DATE OF ADMISSION: 09/21/2018 CHIEF COMPLAINT: Cough with yellow productive sputum, worsening dyspnea on exertion. HISTORY OF PRESENT ILLNESS: The patient is a 72-year-old male with a significant past medical history of coronary artery disease (CAD) status post percutaneous coronary intervention (PCI), atrial fibrillation on anticoagulation with Coumadin, diastolic congestive heart failure, right sided heart failure as well as mild systolic CHF, chronic kidney disease (CKD) stage III secondary to lupus nephritis, diabetes, hypertension, chronic obstructive pulmonary disease (COPD), interstitial lung disease on 6 liters of nasal cannula at home. As per chart, his lung disease is lupus mediated. He presents to the emergency room with cough productive of brownish sputum for the past several days, subjective fevers and chills. No sick contacts, worsening dyspnea on exertion, able to walk only minimally before coming short of breath, orthopnea, mild lower extremity edema, pleuritic chest pain. He also noted some nausea, but not vomiting. He denies any abdominal pain, diarrhea, constipation or urinary symptoms. PAST MEDICAL HISTORY: See history of present illness. PAST SURGICAL HISTORY: Knee surgery. Cataract surgery. CAD status post PCI. Back surgery. Renal biopsy. ALLERGIES: 1. ALLOPURINOL. SOCIAL HISTORY: He is a former smoker. Denies alcohol or illicit drug use. FAMILY HISTORY: Noncontributory. REVIEW OF SYSTEMS: A 12 point review of systems was completed, all of which were negative except those listed in the history of present illness. HOME MEDICATIONS: As per chart and includes: - Tylenol - albuterol - Lipitor - Coreg - vitamin D - Uloric - ferrous gluconate - fluoxetine - gabapentin - losartan - Remeron - omeprazole - oxybutynin - spironolactone - tamsulosin - torsemide - trazodone - Coumadin - zolpidem - acarbose - potassium chloride VITAL SIGNS ON ADMISSION: T-max 100.2 rectally, pulse in the 120s, blood pressure 132/58, satting at 91% on 9 liters nasal cannula. PHYSICAL EXAMINATION: GENERAL: He is mildly tachypneic. HEAD: Normocephalic, atraumatic. EYES: Extraocular movements are intact. Pupils equal, round, reactive to light. NECK: Supple. No jugular venous pressure (JVP). LUNGS: Diffuse crackles throughout. CARDIOVASCULAR: Irregularly irregular rhythm. Normal S1 and S2. No murmurs, gallops, or rubs. ABDOMEN: Soft, nontender, nondistended. Positive bowel sounds. No rebound or guarding. EXTREMITIES: 1+ edema, no calf tenderness. SKIN: Intact. No rashes, lesions or breakdowns. NEUROLOGICAL EXAM: Alert and oriented times three. No focal deficits appreciated on exam. LABS AND IMAGING COMPLETED IN THE EMERGENCY DEPARTMENT: White count of 12, hemoglobin and hematocrit of 11/36, platelet count of 255. Blood gas 7.3, 43, 64, 25, 91 on 8 liters, usually at home is on 6 liters. Chemistry shows a BUN and creatinine of 65/2.7, baseline creatinine of around 1.38. Lactate is 2.5. Initial troponin was negative. BNP around 8000. Rapid flu is negative. Chest x-ray cardiomegaly, possible vascular congestion and diffuse interstitial fibrosis. Relatively unchanged from the previous ASSESSMENT/PLAN: 1. Acute on chronic respiratory failure with hypoxia. This is likely multifactorial, likely sepsis secondary to pneumonia with underlying exacerbation of COPD, interstitial lung disease. Will treat with ceftriaxone and doxycycline. Sputum culture, urine legionella, urine pneumococcal antigen, DuoNeb, standing albuterol as needed, Solu-Medrol 40 every 8 hours. Insulin sliding scale while on Solu-Medrol. Oxygen as needed. 2. For CHF exacerbation, will get a CT of the chest. The patient does describe orthopnea and has peripheral edema. Will treat with Lasix as blood pressure allows. Strict intake and output, daily weights. Elevate head of bed. This is likely secondary to pneumonia, but will rule out acute coronary syndrome (ACS) with serial troponins, serial EKG and keep the patient on telemetry. 3. For acute exacerbation of atrial fibrillation with rapid ventricular response (RVR), likely secondary to sepsis due to pneumonia, will continue his by mouth medications. Will send his coags and continue Coumadin. His INR I am not clear of at this point. Coreg stat dose. Goal heart rate of 60-110. 4. For acute renal failure on CKD, likely in the setting of sepsis, possibly prerenal. Will continue Lasix for now. Will hold nephrotoxic medications. Will trend renal function. I am unclear if this is possibly secondary to worsening underlying lupus nephritis. Consider renal consult in the morning. The patient is on Solu-Medrol. Will send C3 and C4 levels as well as double stranded DNA. 5. COPD exacerbation, interstitial lung disease (ILD) exacerbation secondary to sepsis, secondary to pneumonia. Will CT. His labs and fever spikes are consistent with underlying pneumonia, see problem 1. 6. Diabetes. Continue insulin. 7. Hypertension. Continue medications as tolerated. 8. Supportive deep vein thrombosis (DVT) prophylaxis. Heparin. 9. Gastrointestinal (GI) prophylaxis not indicated. 10. Diet. Cardiac/diabetic diet. Fluid restriction.
[2018-09-21] MEDS ORDERED: DOXYCYCLINE HYCLATE 100 MG in D5W MINI-BAG PLUS 100 ML IV ONE (08:00)
--- NOTE | 2018-09-21 08:13 | REPVR ---
EXAM: CT Chest Without Contrast EXAM DATE/TIME: 09/21/2018 5:58 AM CLINICAL HISTORY: 72 years old, male; Signs and symptoms; Cough TECHNIQUE: Imaging protocol: Axial computed tomography images of the chest without intravenous contrast. Coronal and sagittal reformatted images were created and reviewed. 3D rendering: MIP reconstructed images were created and reviewed. Radiation optimization: All CT scans at this facility use at least one of these dose optimization techniques: automated exposure control; mA and/or kV adjustment per patient size (includes targeted exams where dose is matched to clinical indication); or iterative reconstruction. COMPARISON: CT Chest without contrast 05/09/2018 9:17 AM FINDINGS: Lungs: Extensive bilateral patchy pulmonary consolidations most pronounced posteriorly most concerning for pneumonia. Pleural space: Component of areas of chronic pleural-parenchymal thickening/scarring is likely present with few scattered subpleural blebs. Heart: Cardiac enlargement. Calcification distribution of coronary arteries. Small pericardial effusion. Aorta: Calcified thoracic aorta. Lymph nodes: Unremarkable. No enlarged lymph nodes. Bones/joints: Degenerative change of the spine. Soft tissues: Unremarkable. Other findings: Motion degradation. IMPRESSION: 1. Diffuse patchy parenchymal opacities with prominent air space consolidation posteriorly significantly worsened compared to the prior chest CT concerning for superimposed pneumonia. 2. Prominent areas of pleural-parenchymal scarring likely on a chronic basis with emphysematous changes. 3. Cardiomegaly. Electronically signed by: Jacy Hanna On 09/21/2018 08:13:23 AM
--- NOTE | 2018-09-21 08:18 | REP ---
Portable chest x-ray: Single view. History: Dyspnea and cough. Comparison study: June 02, 2018. Findings: There are peripheral infiltrates in the midlung zones bilaterally. These are somewhat more prominent. A new infiltrate is present in the left base. There are air bronchograms in the left perihilar region. Air bronchograms are seen in the right base as well. Cardiomegaly is observed. Impression: Cardiomegaly. Extensive bilateral infiltrates. Electronically Signed by Mustapha Brown MD 09/21/2018 09:12 A
[2018-09-21] MEDS ORDERED: FUROSEMIDE 40 MG/4 ML VIAL (J1940) IV SCH (09:00)
[2018-09-21] MEDS ORDERED: METOPROLOL SUCC (TopROL XL) 100MG *XL* TAB PO SCH (09:00)
[2018-09-21] MEDS ORDERED: NS 250 ML IV ONE (09:30)
[2018-09-21] MEDS: HumaLOG INSULIN (NovoLOG) PER UNIT SC SCH ×3 (09:34→17:35)
[2018-09-21] MEDS: FEBUXOSTAT 40 MG TABLET (ULORIC) PO SCH (09:35)
[2018-09-21] MEDS: DOXYCYCLINE HYCLATE 100 MG in D5W MINI-BAG PLUS 100 ML IV SCH (09:36)
[2018-09-21] MEDS: CYANOCOBALAMIN 500 MCG TAB PO SCH (09:37)
[2018-09-21] MEDS: FERROUS GLUCONATE 324 MG TAB PO SCH ×2 (09:37→17:35)
[2018-09-21] MEDS: oxyBUTYnin *DITROPAN XL* 5 MG TABCR PO SCH (09:37)
[2018-09-21] MEDS: LACTOBACILLUS ACIDOPHILUS CAP (BACID) PO SCH (09:37)
[2018-09-21] MEDS: ATORVASTATIN 20 MG TAB PO SCH (09:38)
[2018-09-21] MEDS: MULTIVITAMINS/MINERALS THERAP 1 TAB PO SCH (09:38)
[2018-09-21] MEDS: OMEPRAZOLE 20 MG CAP PO SCH ×2 (09:38→19:46)
[2018-09-21] MEDS: FAMOTIDINE 20 MG TAB PO SCH ×2 (09:38→19:46)
[2018-09-21] MEDS: ASPIRIN 81 MG ENTERIC TAB PO SCH (09:38)
[2018-09-21] MEDS: TAMSULOSIN 0.4 MG CAP PO SCH (09:38)
[2018-09-21] MEDS: FLUoxetine 20 MG CAP PO SCH (09:38)
[2018-09-21] MEDS: NORCO, ANEXSIA 5/325MG TABLET (HYDROcodone/ACETAMINOPHEN) PO PRN ×2 (09:40→17:38)
[2018-09-21] MEDS ORDERED: NS 250 ML IV PRN (09:45)
--- NOTE | 2018-09-21 15:28 | ECGEPIP ---
Stationary ECG Study 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
[2018-09-21] MEDS: WARFARIN SOD 3 MG TAB PO SCH (17:35)
[2018-09-21] MEDS: MIRTAZAPINE 15 MG TAB PO SCH (19:46)
[2018-09-21] MEDS: ANEXSIA, NORCO 7.5MG/325MG TABLET(HYDROCODONE/APAP) PO PRN (20:49)
--- NOTE | 2018-09-21 21:21 | IPNPDOC ---
Subjective Date Seen The patient was seen on 09/21/18. Subjective Chief Complaint/HPI Cough, shortness of breath Events since last encounter The patient reports he has been having increasing shortness of breath as well as cough productive of sputum associated with fevers. Denies any nausea or vomiting at this time. Denies any chest pain and this time. No headache. No abdominal pain. No change in his bladder or bowel habits. Objective Physical Examination General Exam: Positive: Alert, Cooperative, Other (lying in bed.) Eye Exam: Positive: PERRLA ENT Exam: Positive: Mucous membr. moist/pink Chest Exam: Positive: Other (dementia entry bilaterally with slight basilar crackles. No overt wheezing.) Heart Exam: Positive: Other (S1 and S2 heard, no rubs or gallops) Abdomen Exam: Positive: Soft, Other (nontender) Neuro Exam: Positive: Other (awake, alert, oriented 3. Answering questions appropriately and moving all 4 extremities) Assessment /Plan Assessment Sepsis and Acute on chronic hypoxemic respiratory failure likely secondary to community-acquired pneumonia: -Continue IV doxycycline and ceftriaxone -Patient was given 250 mL normal saline bolus this morning given his relative hypotension with repeat bolus ordered if map less than 65 -Mentation is okay and extremities appear well perfused -We are awaiting aggressive IV hydration as patient has edema and possible concern regarding CHF exacerbation -And her supplemental oxygen as needed -Continue DuoNeb's, Solu-Medrol -Sputum culture, urine Legionella, urine pneumococcal antigen and blood cultures pending Chronic systolic congestive heart failure year 45-50% from May 2018: -Does not appear to be in overt exacerbation to me at this time -I will discontinue the IV Lasix -BNP appears to be at baseline -Serial troponins negative -Continue metoprolol at a lower dose with holding parameters Acute on chronic kidney disease stage III: -Patient was given IV fluids as noted above -Discontinue Lasix -Encouraged oral fluid intake Atrial fibrillation with rapid ventricular response: -Now rate controlled -Continue metoprolol at a lower dose with holding parameters, Coumadin -INR is therapeutic Lactic acidosis: -Resolved Acute COPD exacerbation likely secondary to pneumonia: -Continue IV Solu-Medrol, duo nebs, supplemental lotion as needed Diabetes mellitus: -Continue insulin Hypertension: -Blood pressure was low this morning -We'll hold blood pressure lowering medications -Metoprolol continued with holding parameters GI/DVT prophylaxis: -PPI/warfarin Plan/VTE VTE Prophylaxis Ordered?: Yes VS, I&O, 24H, Fishbone Vital Signs/I&O Vital Signs Date Time Temp Pulse Resp B/P (MAP) Pulse Ox O2 Delivery O2 Flow Rate FiO2 09/21/18 20:49 18 09/21/18 20:00 98.0 72 103/62 (76) 96 6.0 09/21/18 07:35 Nasal Cannula I&O- Last 24 Hours up to 6 AM 09/21/18 06:00 Intake Total 60 ml Output Total 600 ml Balance -540 ml Laboratory Data 24H LABS Laboratory Tests 2 09/21/18 03:44: Immature Granulocyte % (Auto) 0.3, White Blood Count 12.4H, Red Blood Count 3.93L, Hemoglobin 11.2L, Hematocrit 36.1L, Mean Corpuscular Volume 91.9, Mean Corpuscular Hemoglobin 28.5, Mean Corpuscular Hemoglobin Concent 31.0L, Red Cell Distribution Width 15.0H, Platelet Count 255, Neutrophils (%) (Auto) 75.4H, Lymphocytes (%) (Auto) 12.7L, Monocytes (%) (Auto) 10.1H, Eosinophils (%) (Auto) 1.3, Basophils (%) (Auto) 0.2, Neutrophils # (Auto) 9.3H, Lymphocytes # (Auto) 1.6, Monocytes # (Auto) 1.3H, Eosinophils # (Auto) 0.2, Basophils # (Auto) 0.0, Nucleated Red Blood Cells % (auto) 0.0, Prothrombin Time 29.9H, Prothromb Time International Ratio 2.78, Activated Partial Thromboplast Time 58.7H, Anion Gap 8, Glomerular Filtration Rate 24.3L, Lactic Acid Level 2.5*H, Calcium Level 8.8, Aspartate Amino Transf (AST/SGOT) 14, Alanine Aminotransferase (ALT/SGPT) 12, Alkaline Phosphatase 118H, Total Bilirubin 0.4, Direct Bilirubin 0.2, Total Creatine Kinase 41, Creatine Kinase MB 2.0, Creatine Kinase MB Relative Index 5.37H, Troponin I < 0.02, ZV-Ych-K-Type Natriuretic Peptide 7946H, Total Protein 7.0, Albumin 3.1L, Albumin/Globulin Ratio 0.79L, Thyroid Stimulating Hormone (TSH) 2.140, Complement C3 120, Complement C4 23, Influenza Type A (RT-PCR) NEGATIVE, Influenza Type B (RT-PCR) NEGATIVE 09/21/18 03:50: Blood Gas Bicarbonate Standard 24.3, Arterial Blood pH 7.379, Arterial Blood Partial Pressure CO2 43.7, Arterial Blood Partial Pressure O2 64.7L, Arterial Blood Total CO2 26.6, Arterial Blood HCO3 25.2, Arterial Blood Base Excess -0.1, Arterial Blood Oxygen Saturation 91.1L 09/21/18 06:19: Urine Appearance CLEAR, Urine Color STRAW, Urine pH 5.0, Urine Specific [place] 1.009, Urine Protein 1+H, Urine Glucose (UA) NEGATIVE, Urine Ketones NEGATIVE, Urine Urobilinogen 0.2, Urine Bilirubin NEGATIVE, Urine Leukocyte Esterase NEGATIVE, Urine Blood 1+H, Urine Nitrite NEGATIVE, Urine WBC (Auto) 5H, Urine RBC (Auto) 4H, Urine Hyaline Casts (Auto) 0, Urine Bacteria (Auto) NEGATIVE, Uri ne Squamous Epithelial Cells 0, Urine Sperm (Auto) , Urine Random Sodium 78, Urine Random Potassium 21.9, Urine Random Chloride 86 09/21/18 06:25: 09/21/18 08:19: Lactic Acid Followup at 4 Hours 1.5, Troponin I < 0.02 09/21/18 09:00: Bedside Glucose (Misc Panel) 178H 09/21/18 11:54: Bedside Glucose (Misc Panel) 185H 09/21/18 14:55: Troponin I < 0.02 09/21/18 17:26: Bedside Glucose (Misc Panel) 182H CBC/BMP Laboratory Tests 09/21/18 03:44 Red Blood Count 3.93 L, Mean Corpuscular Volume 91.9, Mean Corpuscular Hemoglobin 28.5, Mean Corpuscular Hemoglobin Concent 31.0 L, Red Cell D istribution Width 15.0 H, Neutrophils (%) (Auto) 75.4 H, Lymphocytes (%) (Auto) 12.7 L, Monocytes (%) (Auto) 10.1 H, Eosinophils (%) (Auto) 1.3, Basophils (%) (Auto) 0.2, Neutrophils # (Auto) 9.3 H, Lymphocytes # (Auto) 1.6, Monocytes # (Auto) 1.3 H, Eosinophils # (Auto) 0.2, Basophils # (Auto) 0.0 Microbiology Microbiology 09/21/18 Blood Culture, Received Pending 09/21/18 Blood Culture, Received Pending SHAR PETER MD Sep 21, 2018 21:21
--- NOTE | 2018-09-21 22:05 | ECGEPIP ---
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
[2018-09-22] VITALS: BP 130/74
[2018-09-22] MEDS: methylPREDNISolone INJ 40 MG/1 ML VIAL (J2920) IV SCH ×4 (00:27→21:11)
[2018-09-22] MEDS: DOXYCYCLINE HYCLATE 100 MG in D5W MINI-BAG PLUS 100 ML IV SCH ×3 (00:27→21:12)
[2018-09-22] MEDS: ANEXSIA, NORCO 7.5MG/325MG TABLET(HYDROCODONE/APAP) PO PRN ×5 (01:05→19:55)
[2018-09-22 04:00] VITALS: BP 146/73
[2018-09-22] MEDS: IPRATROPIUM 0.5MG/ALBUTEROL 2.5MG INH SOL UD 3ML (DUONEB)(J7620) NEB SCH ×7 (04:00→23:36)
[2018-09-22 05:19] LABS: HEMATOCRIT 28.4 % (42.0-52.0); MEAN CORPUSCULAR HEMOGLOBIN 28.1 pg (27.0-33.0); MEAN CORPUSCULAR HGB CONC 31.7 g/dl (32.0-36.5); MEAN CORPUSCULAR VOLUME 88.8 fl (80.0-96.0); PLATELET COUNT, AUTOMATED 218 10^3/uL (150-450)
[2018-09-22 05:28] LABS: INR 2.67
[2018-09-22] MEDS: cefTRIAXone SOD 1 GM in D5W MINI-BAG PLUS 50 ML IV SCH (05:34)
[2018-09-22 05:37] LABS: CALCIUM LEVEL 8.4 MG/DL (8.8-10.2); CREATININE FOR GFR 1.92 MG/DL (0.70-1.30); GLOMERULAR FILTRATION RATE 36.8 (>42); POTASSIUM SERUM 4.6 MEQ/L (3.5-5.1)
[2018-09-22 08:00] VITALS: BP 161/80
[2018-09-22] MEDS: HumaLOG INSULIN (NovoLOG) PER UNIT SC SCH ×3 (09:12→17:44)
[2018-09-22] MEDS: ASPIRIN 81 MG ENTERIC TAB PO SCH (09:13)
[2018-09-22] MEDS: CYANOCOBALAMIN 500 MCG TAB PO SCH (09:13)
[2018-09-22] MEDS: LACTOBACILLUS ACIDOPHILUS CAP (BACID) PO SCH (09:13)
[2018-09-22] MEDS: FEBUXOSTAT 40 MG TABLET (ULORIC) PO SCH (09:13)
[2018-09-22] MEDS: oxyBUTYnin *DITROPAN XL* 5 MG TABCR PO SCH (09:13)
[2018-09-22] MEDS: MULTIVITAMINS/MINERALS THERAP 1 TAB PO SCH (09:14)
[2018-09-22] MEDS: FLUoxetine 20 MG CAP PO SCH (09:14)
[2018-09-22] MEDS: OMEPRAZOLE 20 MG CAP PO SCH ×2 (09:15→19:54)
[2018-09-22] MEDS: METOPROLOL SUCC *XL* 25MG TAB (TopROL *XL*) PO SCH (09:15)
[2018-09-22] MEDS: FERROUS GLUCONATE 324 MG TAB PO SCH ×2 (09:15→17:42)
[2018-09-22] MEDS: FAMOTIDINE 20 MG TAB PO SCH ×2 (09:15→19:54)
[2018-09-22] MEDS: ATORVASTATIN 20 MG TAB PO SCH (09:15)
[2018-09-22] MEDS: TAMSULOSIN 0.4 MG CAP PO SCH (09:16)
[2018-09-22 12:00] VITALS: BP 128/69
[2018-09-22] MEDS ORDERED: SLF 3 ML SYR IV PRN (12:00)
[2018-09-22 12:07] LABS: HEMATOCRIT 31.7 % (42.0-52.0); HEMOGLOBIN 9.9 g/dl (13.5-17.5)
[2018-09-22] MEDS: SLF 3 ML SYR IV SCH ×2 (14:01→21:12)
[2018-09-22 14:25] LABS: ANTI DOUBLE STRAND-DNA AB 1 IU/mL (0-9)
[2018-09-22 16:00] VITALS: BP 151/82
[2018-09-22] MEDS: WARFARIN SOD 3 MG TAB PO SCH (17:42)
--- NOTE | 2018-09-22 18:17 | IPNPDOC ---
Subjective Date Seen The patient was seen on 09/22/18. Subjective Chief Complaint/HPI Cough, shortness of breath Events since last encounter The patient reports back pain that is currently not controlled with the dose of hydrocodone 7.5 mg every 4 hourshe reports he takes at home 10 mg 2 tablets every 6 hours. Shortness of breath is improving. Reports some slight productive cough. No chest pain. No overnight fevers or chills. No nausea vomiting. Tolerating oral intake. No problems with bladder/bowel habits. Objective Physical Examination General Exam: Positive: Alert, Cooperative, Other (sitting up in chairno distress) Eye Exam: Positive: PERRLA ENT Exam: Positive: Mucous membr. moist/pink Chest Exam: Positive: Other (decreased air entry bilaterally. No overt wheezing or crackles) Heart Exam: Positive: Other (S1 and S2 heard, no rubs or gallops) Abdomen Exam: Positive: Soft, Other (nontender) Neuro Exam: Positive: Other (awake, alert, answering questions appropriately) Assessment /Plan Assessment Sepsis and Acute on chronic hypoxemic respiratory failure likely secondary to community-acquired pneumonia: -Continue IV doxycycline and ceftriaxone D2 -Blood pressure is doing better -Continue supplemental oxygen as needed - currently at his usual baseline of 6 L/m by nasal cannula -Continue DuoNeb's, Solu-Medrol -Sputum culture, urine Legionella, urine pneumococcal antigen pending. Blood cultures show no growth at 48 hours Chronic systolic congestive heart failure year 45-50% from May 2018: -Does not appear to be in overt exacerbation to me at this time -BNP appears to be at baseline -Serial troponins negative -Continue metoprolol at a lower dose with holding parameters Acute on chronic kidney disease stage III: -Patient was given IV fluids with some improvement in his renal function -Discontinued Lasix -Encouraged oral fluid intake Atrial fibrillation with rapid ventricular response: -Now rate controlled -Continue metoprolol at a lower dose with holding parameters, Coumadin -INR is therapeutic Lactic acidosis: -Resolved Acute COPD exacerbation likely secondary to pneumonia: -Continue IV Solu-Medrol, duo nebs, supplemental O2 as needed Diabetes mellitus: -Continue insulin Hypertension: -Ct Metoprolol continued with holding parameters Anemia: -Recheck hemoglobin appears stable. Continue to monitor. Likely have some drop related to initial IV fluids. GI/DVT prophylaxis: -PPI/warfarin Disposition: Anticipate possible discharge home within the next 24-48 hours Plan/VTE VTE Prophylaxis Ordered?: Yes VS, I&O, 24H, Fishbone Vital Signs/I&O Vital Signs Date Time Temp Pulse Resp B/P (MAP) Pulse Ox O2 Delivery O2 Flow Rate FiO2 09/22/18 16:00 97.3 95 22 151/82 (105) 93 6.0 09/21/18 07:35 Nasal Cannula I&O- Last 24 Hours up to 6 AM 09/22/18 06:00 Intake Total 1766 ml Output Total 1300 ml Balance 466 ml Laboratory Data 24H LABS Laboratory Tests 2 09/22/18 04:38: Nucleated Red Blood Cells % (auto) 0.0, Prothrombin Time 29.0H, Prothromb Time International Ratio 2.67, Anion Gap 6L, Glomerular Filtration Rate 36.8L, Blood Urea Nitrogen 66H, Creatinine 1.92H, Sodium Level 136, Potassium Level 4.6, Chloride Level 102, Carbon Dioxide Level 28, Calcium Level 8.4L 09/22/18 11:47: Bedside Glucose (Misc Panel) 154H 09/22/18 16:53: Bedside Glucose (Misc Panel) 160H CBC/BMP Laboratory Tests 09/22/18 04:38 Red Blood Count 3.20 L, Mean Corpuscular Volume 88.8, Mean Corpuscular Hemoglobin 28.1, Mean Corpuscular Hemoglobin Concent 31.7 L, Red Cell Distribution Width 14.9 H, Calcium Level 8.4 L 09/22/18 11:56 Microbiology Microbiology 09/21/18 Blood Culture - Preliminary, Resulted No growth after 24 hours . All specim... 09/21/18 Blood Culture - Preliminary, Resulted No growth after 24 hours . All specim... SHAR PETER MD Sep 22, 2018 18:17
[2018-09-22] MEDS: MIRTAZAPINE 15 MG TAB PO SCH (19:54)
[2018-09-22 20:00] VITALS: BP 135/85
[2018-09-23] VITALS: BP 149/83
[2018-09-23] MEDS: ANEXSIA, NORCO 7.5MG/325MG TABLET(HYDROCODONE/APAP) PO PRN ×4 (00:36→13:58)
[2018-09-23 04:00] VITALS: BP 164/77
[2018-09-23] MEDS: IPRATROPIUM 0.5MG/ALBUTEROL 2.5MG INH SOL UD 3ML (DUONEB)(J7620) NEB SCH ×4 (04:00→15:23)
[2018-09-23] MEDS: methylPREDNISolone INJ 40 MG/1 ML VIAL (J2920) IV SCH (05:11)
[2018-09-23] MEDS: cefTRIAXone SOD 1 GM in D5W MINI-BAG PLUS 50 ML IV SCH (05:11)
[2018-09-23] MEDS: SLF 3 ML SYR IV SCH (05:11)
[2018-09-23 05:43] LABS: HEMATOCRIT 31.8 % (42.0-52.0); HEMOGLOBIN 9.9 g/dl (13.5-17.5); MEAN CORPUSCULAR HEMOGLOBIN 28.2 pg (27.0-33.0); MEAN CORPUSCULAR HGB CONC 31.1 g/dl (32.0-36.5); MEAN CORPUSCULAR VOLUME 90.6 fl (80.0-96.0); PLATELET COUNT, AUTOMATED 234 10^3/uL (150-450); RED BLOOD COUNT 3.51 10^6/uL (4.30-6.10); WHITE BLOOD COUNT 11.9 10^3/uL (4.0-10.0)
[2018-09-23 06:04] LABS: CALCIUM LEVEL 9.2 MG/DL (8.8-10.2); CREATININE FOR GFR 1.99 MG/DL (0.70-1.30); GLOMERULAR FILTRATION RATE 35.3 (>42); POTASSIUM SERUM 4.4 MEQ/L (3.5-5.1)
[2018-09-23 06:07] LABS: INR 2.76; PROTHROMBIN TIME 29.8 SECONDS (12.1-14.4)
[2018-09-23 08:00] VITALS: BP 146/71
[2018-09-23] MEDS: HumaLOG INSULIN (NovoLOG) PER UNIT SC SCH ×2 (09:14→13:53)
[2018-09-23] MEDS: OMEPRAZOLE 20 MG CAP PO SCH (09:15)
[2018-09-23] MEDS: CYANOCOBALAMIN 500 MCG TAB PO SCH (09:15)
[2018-09-23] MEDS: oxyBUTYnin *DITROPAN XL* 5 MG TABCR PO SCH (09:15)
[2018-09-23] MEDS: FEBUXOSTAT 40 MG TABLET (ULORIC) PO SCH (09:15)
[2018-09-23] MEDS: FLUoxetine 20 MG CAP PO SCH (09:15)
[2018-09-23] MEDS: LACTOBACILLUS ACIDOPHILUS CAP (BACID) PO SCH (09:15)
[2018-09-23 09:16] VITALS: BP 146/71
[2018-09-23] MEDS: MULTIVITAMINS/MINERALS THERAP 1 TAB PO SCH (09:16)
[2018-09-23] MEDS: ATORVASTATIN 20 MG TAB PO SCH (09:16)
[2018-09-23] MEDS: TAMSULOSIN 0.4 MG CAP PO SCH (09:16)
[2018-09-23] MEDS: ASPIRIN 81 MG ENTERIC TAB PO SCH (09:16)
[2018-09-23] MEDS: FERROUS GLUCONATE 324 MG TAB PO SCH (09:16)
[2018-09-23] MEDS: METOPROLOL SUCC *XL* 25MG TAB (TopROL *XL*) PO SCH (09:16)
[2018-09-23] MEDS: FAMOTIDINE 20 MG TAB PO SCH (09:16)
[2018-09-23] MEDS: DOXYCYCLINE HYCLATE 100 MG in D5W MINI-BAG PLUS 100 ML IV SCH (09:18)
[2018-09-23 12:00] VITALS: BP 133/78
[2018-09-23] MEDS ORDERED: DOXY100T PO (12:35)
[2018-09-23] MEDS ORDERED: PRED20TA PO (12:35)
[2018-09-23] MEDS ORDERED: METO1TAB32 PO (12:35)
[2018-09-23] MEDS ORDERED: CEFD1CAP8 PO (12:35)
[2018-09-23] MEDS ORDERED: predniSONE 20 MG TAB PO SCH (13:00)
[2018-09-23 14:14] LABS: BODY FLUID CULTURE Not Indicated (.); LEGIONELLA ANTIGEN URINE Negative (Negative); ORGANISM ID Not indicated. (.); SPECIMEN SOURCE Urine (.); URINE STREP PNEUMONIAE ANTIGEN Negative (Negative)
--- NOTE | 2018-09-23 18:22 | DS.PDOC ---
Discharge Summary General Date of Admission Sep 21, 2018 at 06:05 Date of Discharge 09/23/18 Discharge Summary PROCEDURES PERFORMED DURING STAY: None. ADMITTING DIAGNOSES: 1. Acute on chronic respiratory failure with hypoxia. 2. CHF exacerbation 3. Acute exacerbation of atrial fibrillation with rapid ventricular response (RVR) 4. Acute renal failure on CKD 5. COPD exacerbation, interstitial lung disease (ILD) exacerbation secondary to sepsis, secondary to pneumonia 6. Diabetes 7. Hypertension. DISCHARGE DIAGNOSES: Sepsis and Acute on chronic hypoxemic respiratory failure likely secondary to community-acquired pneumonia Chronic systolic congestive heart failure year 45-50% from May 2018 Acute on chronic kidney disease stage III Atrial fibrillation with rapid ventricular response Lactic acidosis Acute COPD exacerbation likely secondary to pneumonia Diabetes mellitus 2 Hypertension Anemia COMPLICATIONS/CHIEF COMPLAINT: Afib With Rvr, Sepsis. HISTORY OF PRESENT ILLNESS: The patient is a 70-year-old gentleman who presented to the ER with complains of cough, productive sputum as well as fevers and chills. Findings in the ER were concerning for acute on chronic hypoxemic respiratory failure as well as sepsis secondary to pneumonia. The patient was admitted to our facility for further management. HOSPITAL COURSE: Sepsis and Acute on chronic hypoxemic respiratory failure likely secondary to community-acquired pneumonia: -The patient was treated with IV doxycycline and ceftriaxone -He had problems with hypotensionhe received some IV fluids as well initially (after he had initially received Lasix for concerns of CHF exacerbation) -The blood pressures improved. -Clinically, the patient has improved as well. -Shortness of breath has also improved -He is using 6 L per minute by nasal cannula which is his baseline -He has been transitioned to oral antibiotics on discharge to be continued for 4 more days to finish 1 week of total treatment -He was on DuoNeb's, Solu-Medrol - he is being transitioned to oral prednisone on discharge. Continue home nebs -Negative urine Legionella, urine pneumococcal antigen. Blood cultures show no growth Chronic systolic congestive heart failure year 45-50% from May 2018: -No CHF exacerbation -BNP appears to be at baseline -Serial troponins negative -Continue metoprolol at a lower dose - dose has been lowered from 100 mg daily to 25 mg daily given the patient's low blood pressures -I will be resuming the patient's oral diuretics per home dosing starting tomorrow as his oral intake is back to baseline. Acute on chronic kidney disease stage III: -Patient was given IV fluids with some improvement in his renal function -Discontinued Lasix -Encouraged oral fluid intake Atrial fibrillation with rapid ventricular response: -Now rate controlled -Continue metoprolol at a lower dose with holding parameters, Coumadin -INR is therapeutic Lactic acidosis: -Resolved - was likely related to the respiratory failure and distress rather than to the sepsis Acute COPD exacerbation likely secondary to pneumonia: -And was treated with IV Solu-Medrol, duo nebs, supplemental O2 as needed -In transitioned to oral prednisone discharge Diabetes mellitus type II: -Likely exacerbated by IV steroids -Patient is being transitioned to oral prednisone discharge. He will not require any insulin on discharge. He was on sliding scale insulin during hospital stay. Fingersticks have been in the 130s to 180s. Hypertension: -Ct Metoprolol. Resume home diuretics from tomorrowspironolactone and torsemide Anemia: -Patient had some initial drop in his hemoglobin light to related to the IV fluids he had received. -Hemoglobin has remained stable thereafter. He did not require any transfusion. On day of discharge, patient is doing well. Oxygen requirement is at baseline. Shortness of breath has improved. He has been able to work with physical therapy and has been recommended outpatient therapy. He is tolerating oral intake well. Plan is for the patient was discharged home today. DISCHARGE MEDICATIONS: Please see below. ALLERGIES: Please see below. PHYSICAL EXAMINATION ON DISCHARGE: VITAL SIGNS: Please see below. GENERAL: Sitting up in chair. No distress HEENT: Pupils equal round reactive to light CARDIOVASCULAR EXAMINATION: S1, S2 heard, irregular, no rubs or gallops. RESPIRATORY EXAMINATION: Slight basilar crackles. No wheezing. No distress ABDOMINAL EXAMINATION: Soft, nontender NEUROLOGICAL EXAMINATION: Awake, alert, oriented 3. Answering questions appropriately. Moving all 4 extremities. LABORATORY DATA: Please see below. IMAGING: Chest x-ray 09/21/18: Cardiomegaly, extensive bilateral infiltrates Chest CT, noncontrast 09/21/18: IMPRESSION: 1. Diffuse patchy parenchymal opacities with prominent air space consolidation posteriorly significantly worsened compared to the prior chest CT concerning for superimposed pneumonia. 2. Prominent areas of pleural-parenchymal scarring likely on a chronic basis with emphysematous changes. 3. Cardiomegaly. ACTIVITY: As tolerated with rolling walker DIET: 2 g sodium diet DISCHARGE PLAN: Patient to be discharged home today as noted. Outpatient physical therapy and occupational therapy. Follow-up with primary care provider in one week DISPOSITION: Home ITEMS TO FOLLOWUP ON ON OUTPATIENT: 1. Follow-up on pneumonia/COPD exacerbation/gout as outpatient. Further management of diabetes mellitus as outpatient DISCHARGE CONDITION: Stable. TIME SPENT ON DISCHARGE: 37 minutes. Vital Signs/I&Os Vital Signs Date Time Temp Pulse Resp B/P (MAP) Pulse Ox O2 Delivery O2 Flow Rate FiO2 09/23/18 09:48 18 09/23/18 09:18 6.0 09/23/18 09:16 77 146/71 09/23/18 08:00 97.8 96 09/21/18 07:35 Nasal Cannula I&O- Last 24 Hours up to 6 AM 09/23/18 06:00 Intake Total 1480 ml Output Total 1300 ml Balance 180 ml Laboratory Data Labs 24H Laboratory Tests 2 09/22/18 16:53: Bedside Glucose (Misc Panel) 160H 09/22/18 19:54: Bedside Glucose (Misc Panel) 180H 09/23/18 04:19: Nucleated Red Blood Cells % (auto) 0.0, Prothrombin Time 29.8H, Prothromb Time International Ratio 2.76, Anion Gap 7L, Glomerular Filtration Rate 35.3L, Blood Urea Nitrogen 67H, Creatinine 1.99H, Sodium Level 136, Potassium Level 4.4, Chloride Level 102, Carbon Dioxide Level 27, Calcium Level 9.2 09/23/18 11:26: Bedside Glucose (Misc Panel) 137H CBC/BMP Laboratory Tests 09/23/18 04:19 Red Blood Count 3.51 L, Mean Corpuscular Volume 90.6, Mean Corpuscular Hemoglobin 28.2, Mean Corpuscular Hemoglobin Concent 31.1 L, Red Cell Distribution Width 15.4 H, Calcium Level 9.2 FSBS Laboratory Tests Test 09/22/18 16:53 09/22/18 19:54 09/23/18 11:26 Range/Units Bedside Glucose (Misc Panel) 160 180 137 83-110 MG/DL Microbiology Microbiology 09/21/18 Blood Culture - Preliminary, Resulted No Growth after 48 hours. All Specime... 09/21/18 Blood Culture - Preliminary, Resulted No Growth after 48 hours. All Specime... Discharge Medications Scheduled (Procrit) 20,000 Unit/Ml Inj, 20,000 UNIT SC Q2WK, (Reported) Acarbose (Acarbose) 25 Mg Tab, 25 MG PO AC, (Reported) Aspirin (Aspirin) 81 Mg Tab, 81 MG PO DAILY, (Reported) Atorvastatin Calcium (Atorvastatin Calcium) 20 Mg Tab, 20 MG PO DAILY, (Reported) Calcium/Vitamin D (Calcium 600 + D 600-400 mg-Unit) 1 Tab Tab, 1 TAB PO BID, (Reported) Cefdinir (Cefdinir) 300 Mg Cap, 300 MG PO BID Cyanocobalamin (Vitamin B-12) 1,000 Mcg Tab, 1,000 MCG PO DAILY, (Reported) Doxycycline Hyclate (Doxycycline Hyclate) 100 Mg Tab, 100 MG PO BID Ergocalciferol (Vitamin D) 50,000 Unit Cap, 50,000 UNIT PO QWEEK, (Reported) THURSDAY Febuxostat (Uloric) 80 Mg Tab, 80 MG PO DAILY, (Reported) Ferrous Gluconate (Ferrous Gluconate) 324 Mg Tab, 324 MG PO BIDWM, (Reported) Fluoxetine Hcl (Fluoxetine HCl) 20 Mg Cap, 80 MG PO DAILY, (Reported) Lactobacillus Acidophilus (Bacid) 1 Tab Tab, 1 TAB PO DAILY, (Reported) Magnesium Chloride (Slow-Mag 71.5-119 mg) 1 Tab Tab, 1 TAB PO DAILY, (Reported) Metoprolol Succinate (Metoprolol Succinate ER) 25 Mg Tab, 25 MG PO DAILY Mirtazapine (Remeron) 30 Mg Tab, 30 MG PO QHS, (Reported) Multivitamins *[facility] STOCKED* (Thera M Plus *[facility] STOCKED*) 1 Tab Tab, 1 TAB PO DAILY, (Reported) Omeprazole (Omeprazole) 40 Mg Cap, 40 MG PO BID, (Reported) Oxybutynin Chloride (Oxybutynin Chloride ER) 15 Mg Tab, 15 MG PO DAILY, (Reported) Prednisone (Prednisone) 20 Mg Tab, 40 MG PO DAILY Ranitidine HCl (Ranitidine HCl) 150 Mg Tab, 1 TAB PO BID, (Reported) Spironolactone (Spironolactone) 25 Mg Tab, 25 MG PO DAILY, (Reported) Tamsulosin Hydrochloride (Flomax) 0.4 Mg Cap, 0.4 MG PO DAILY, (Reported) Torsemide (Torsemide) 100 Mg Tab, 50 MG PO DAILY, (Reported) Warfarin Sod (Warfarin Sodium) 2 Mg Tab, 2 MG PO 1XWK, (Reported) THURSDAY Warfarin Sod (Warfarin Sodium) 3 Mg Tab, 3 MG PO 6XWK, (Reported) THURSDAY, THURSDAY, THURSDAY, THURSDAY, THURSDAY, THURSDAY Scheduled PRN Acetaminophen/Hydrocodone (Hydrocodone/Acetaminophen 10-325 mg) 1 Tab Tab, 2 TAB PO TID PRN for PAIN, (Reported) Albuterol Sulfate (Proair Hfa) 108 Mcg/Act Aer, 2 PUFF INH Q4H PRN for SHORTNESS OF BREATH, (Reported) Albuterol Sulfate (Albuterol Sulfate) 2.5 Mg/3 Ml Nebu, 2.5 MG INH Q4H PRN for SHORTNESS OF BREATH, (Reported) Artificial Tears (Artificial Tears) 1.4 % Joyce, 1 DROP OU BID PRN for DRY EYES, (Reported) Nitroglycerin (Nitrostat) 0.4 Mg Subl, 0.4 MG SL NITRO PRN for CHEST PAIN, (Reported) Trazodone HCl (Trazodone HCl) 50 Mg Tab, 50 MG PO QHS PRN for SLEEP, (Reported) DOES NOT TAKE IF TAKE AMBIEN Zolpidem Tartrate (Ambien) 5 Mg Tab, 5 MG PO QHS PRN for SLEEP, (Reported) Allergies Coded Allergies: allopurinol (Verified Allergy, Mild, itching, 09/21/18) SHAR PETER MD Sep 23, 2018 12:36
[2018-09-23] MEDS ORDERED: DOXYCYCLINE HYCLATE 100 MG TAB PO SCH (21:00)
[2018-09-27] MEDS ORDERED: WARFARIN SOD 2 MG TAB PO SCH (17:00)
== END 2018-09-23 15:41 | disposition home or self-care (01) | DRG 871 ==
LOC: M ED 03:27 → M ED INP 06:05 → M ICU 07:41 → M PCU 22:17
PROVIDERS: ADMIT Internal Medicine; ATTEND Internal Medicine
DX: A41.9 Sepsis, unspecified organism (principal); J18.9 Pneumonia, unspecified organism; J96.21 Acute and chronic respiratory failure with hypoxia; N17.9 Acute kidney failure, unspecified; J44.1 Chronic obstructive pulmonary disease with (acute) exacerbation; I50.32 Chronic diastolic (congestive) heart failure; E87.2 Acidosis; I13.0 Hypertensive heart and chronic kidney disease with heart failure and stage 1 through stage 4 chronic kidney disease, or unspecified chronic kidney disease; I48.91 Unspecified atrial fibrillation; E11.9 Type 2 diabetes mellitus without complications; N18.3 Chronic kidney disease, stage 3 (moderate); Z79.82 Long term (current) use of aspirin; Z79.899 Other long term (current) drug therapy; Z88.8 Allergy status to other drugs, medicaments and biological substances; I25.10 Atherosclerotic heart disease of native coronary artery without angina pectoris; Z79.01 Long term (current) use of anticoagulants; D64.9 Anemia, unspecified

== ENCOUNTER 2018-11-10 01:48 | Inpatient (IN) | payer MEDICARE, OTHER ==
[~2018-11-10] VITALS: Ht 172.7 cm; Wt 112.1 kg
[2018-11-10] VITALS (10 sets, daily range): BP systolic 90–104; BP diastolic 41–64
[~2018-11-10 01:48] MED LIST changes: -AMMO12CR4 TOP; +AMMO12CR7 TOP; -ASPI1TAB PO; +ASPI1TAB15 PO; +ASPI81TA26 PO; +CALCTAB68 PO; +CEFD1CAP8 PO; +DILT1CAP7 PO; -DILT300C46 PO; +DOXY100T PO; +METO1TAB32 PO; +METO1TAB33 PO; +NITR4TASL SL; +SLOWTAB2 PO; -VALS1TAB46 PO; +VALS1TAB66 PO
[2018-11-10 02:19] LABS: ABG BASE EXCESS -0.7 (-2.0-2.0); ABG HCO3 23.4 MEQ/L (22.0-26.0); ABG O2 SATURATION 94.9 % (95.0-99.0); ABG PARTIAL PRESSURE CO2 36.5 mmHg (35.0-45.0); ABG PARTIAL PRESSURE O2 72.8 mmHg (75.0-100.0); ABG STANDARD HCO3 23.9 MEQ/L (22.0-26.0); ABG TOTAL CO2 24.5 MEQ/L (23.0-31.0); ABG pH (ARTERIAL) 7.425 UNITS (7.350-7.450)
[2018-11-10 02:52] LABS: BASO # 0.1 10^3/uL (0.0-0.2); BASO % 0.3 % (0.0-1.0); EOS % 0.2 % (0.0-3.0); HEMATOCRIT 33.2 % (42.0-52.0); HEMOGLOBIN 10.5 g/dl (13.5-17.5); LYMPH # 1.3 10^3/uL (1.5-4.5); LYMPH % 7.2 % (24.0-44.0); MEAN CORPUSCULAR HGB CONC 31.6 g/dl (32.0-36.5); MEAN CORPUSCULAR VOLUME 91.7 fl (80.0-96.0); MONO # 0.8 10^3/uL (0.0-0.8); MONO % 4.5 % (0.0-5.0); NEUTROPHILS # 15.6 10^3/uL (1.8-7.7); NEUTROPHILS % 87.4 % (36.0-66.0); PLATELET COUNT, AUTOMATED 248 10^3/uL (150-450); RED BLOOD COUNT 3.62 10^6/uL (4.30-6.10); WHITE BLOOD COUNT 17.8 10^3/uL (4.0-10.0)
[2018-11-10] MEDS ORDERED: TORS10TA3 PO (02:59)
[2018-11-10] MEDS ORDERED: ENTR1TAB PO (02:59)
[2018-11-10] MEDS ORDERED: GABA600T4 PO (02:59)
[2018-11-10] MEDS ORDERED: TOPR100T PO (02:59)
[2018-11-10] MEDS ORDERED: [UNRECOGNIZED DRUG - CODE] PO (02:59)
[2018-11-10] MEDS ORDERED: CALC1TAB82 PO (03:01)
[2018-11-10 03:07] LABS: INR 1.62; PROTHROMBIN TIME 19.5 SECONDS (12.1-14.4)
[2018-11-10] MEDS ORDERED: WARF4TAB51 PO (03:35)
[2018-11-10 03:43] LABS: ALT/SGPT 14 U/L (12-78); BILIRUBIN,DIRECT < 0.1 MG/DL (0.0-0.2); BILIRUBIN,TOTAL 0.3 MG/DL (0.2-1.0); BLOOD UREA NITROGEN 90 MG/DL (7-18); CALCIUM LEVEL 9.1 MG/DL (8.8-10.2); CARBON DIOXIDE LEVEL 25 MEQ/L (21-32); CHLORIDE LEVEL 98 MEQ/L (98-107); CPK CREATINE PHOSPHOKINASE 34 U/L (39-308); CREATININE FOR GFR 4.03 MG/DL (0.70-1.30); GLOMERULAR FILTRATION RATE 15.7 (>42); GLUCOSE, FASTING 109 MG/DL (70-100); MB/CK RELATIVE INDEX 5.88 (< OR =4); NT-PRO BNP 10381 PG/ML (<125); POTASSIUM SERUM 6.2 MEQ/L (3.5-5.1); SODIUM LEVEL 135 MEQ/L (136-145); TOTAL PROTEIN 6.6 GM/DL (6.4-8.2); TROPONIN I < 0.02 NG/ML (< 0.10)
[2018-11-10] MEDS ORDERED: NORCO, ANEXSIA 5/325MG TABLET (HYDROcodone/ACETAMINOPHEN) PO ONE (03:45)
[2018-11-10] MEDS ORDERED: HumuLIN R (REGULAR) INSULIN (NovoLIN R) **100U/ML** PER UNIT IV STA (03:58)
[2018-11-10] MEDS ORDERED: DEXTROSE 50% 50 ML SYRINGE IV STA (03:58)
[2018-11-10] MEDS ORDERED: CALCIUM CHLORIDE 10% 1 GM in D5W 100 ML IV ONE (04:00)
--- NOTE | 2018-11-10 04:38 | REPVR ---
EXAM: CT Chest Without Contrast EXAM DATE/TIME: 11/10/2018 2:57 AM CLINICAL HISTORY: 72 years old, male; Condition or disease; Lung condition and disease; Pulmonary fibrosis and other: Infiltrates; Additional info: Interstitial fibrosis, bilateral infiltrates on cxr TECHNIQUE: Imaging protocol: Axial computed tomography images of the chest without intravenous contrast. Coronal and sagittal reformatted images were created and reviewed. 3D rendering: MIP reconstructed images were created and reviewed. Radiation optimization: All CT scans at this facility use at least one of these dose optimization techniques: automated exposure control; mA and/or kV adjustment per patient size (includes targeted exams where dose is matched to clinical indication); or iterative reconstruction. COMPARISON: CT Chest without contrast 09/21/2018 6:[address] Chest without contrast 05/09/2018 9:17:10 AM FINDINGS: Limitations: There is motion artifact, especially affecting images through the lung bases. Lungs: There is peripheral and basilar predominant interstitial thickening in both lungs. There is a coarsely calcified granuloma in the left lower lobe measuring 8 mm and There is a small amount of consolidation posteriorly in both lower lobes which is less prominent than on the prior exam of September, and grossly similar to the prior exam from April,. There is improvement in consolidation previously seen in the bilateral upper lobes on the prior exam from September,. Pleural space: There are no pleural effusions present. Heart: There is moderate atherosclerotic calcification of the coronary arteries. The heart is enlarged. Aorta: The aorta demonstrates moderate atherosclerotic calcification. Lymph nodes: There are multiple small mediastinal lymph nodes, unchanged. There is an enlarged subcarinal lymph node measuring 1.7 mm in short axis, grossly unchanged. There are small calcified left hilar nodes. Bones/joints: Degenerative endplate changes are seen at multiple levels in the visualized spine. Soft tissues: Unremarkable. Spleen: The spleen demonstrates punctate calcifications, consistent with remote granulomatous organism exposure. Upper abdomen: No acute findings are noted in the visualized upper abdomen. IMPRESSION: Peripheral and basilar predominant interstitial lung disease again seen, consistent with chronic lung disease which has a usual interstitial pneumonia pattern and appears similar to the prior exam from April,. Resolution of peripheral consolidation in the bilateral upper lobes and improvement in consolidation in the bilateral lower lobes compared to the prior CT scan of 09/21/2018 which may have represented superimposed pneumonia. Electronically signed by: Shantell Morales On 11/10/2018 04:37:55 AM
[2018-11-10] MEDS ORDERED: ALBUTEROL SULFATE 2.5 MG/0.5 ML INH NEB SOLN NEB PRN (04:45)
[2018-11-10] MEDS ORDERED: ENOXAPARIN 30 MG/0.3 ML SYR (J1650) SC SCH (04:45)
[2018-11-10] MEDS: NS 1,000 ML IV SCH ×3 (05:25→23:32)
[2018-11-10] MEDS ORDERED: POLYVINYL ALCOHOL OPHTH SOLN 15 ML(LIQUITEARS) OU PRN (06:00)
[2018-11-10] MEDS ORDERED: zolPIDEM TARTRATE 5 MG TAB PO PRN (06:00)
[2018-11-10] MEDS ORDERED: cefTRIAXone SOD 1 GM in D5W 50 ML IV SCH (06:00)
[2018-11-10] MEDS ORDERED: AZITHROMYCIN 250 MG TAB PO ONE (06:00)
[2018-11-10] MEDS ORDERED: methylPREDNISolone INJ 125 MG/2 ML VIAL (J2930) IV SCH (06:00)
--- NOTE | 2018-11-10 06:20 | ECGEPIP ---
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
--- NOTE | 2018-11-10 06:29 | HPEPDOC ---
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 Patient presents the emergency department via EMS with a reported history of a fall. Per patient, he had not been feeling well for the last couple of days. Yesterday, 11/09/18, patient reports multiple episodes of emesis, GI upset and diarrhea. Additionally, patient reports an increased oxygen requirement from his baseline of 6 L/m 2 over 8 L/m in the setting of increasing fatigue. In the emergency department, the patient was found to have an elevated white count of 17.8. CMP studies indicated a sodium of 135 and a potassium of 6.2. BUN/creatinine was found to be 90/4.03. Patient normally has a baseline creatinine of 1.6. Troponins negativ, proBNP 10,381. Lactic acid level of 1.7. Chest CT imaging shows improvement compared to prior studies. Hospitalist team was contacted for admission for patient's acute renal failure, COPD exacerbation and elevated white count. 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 REVIEW OF SYSTEMS: CONSTITUTIONAL: Patient reports a 23 day history of subjective fevers, HEENT: Patient reports to3 day history of headache, denies changes in vision, nasal congestion, difficulty swallowing CARDIOVASCULAR: Patient denies chest pain/discomfort, palpitations RESPIRATORY: Patient reports an increase in his baseline option requirement from 6 L to 8 L/m GASTROINTESTINAL: Patient reports numerous episodes of emesis the day prior to presentation, abdominal discomfort, 2 day history of diarrhea, intermittent constipation GENITOURINARY: Patient denies any difficulty urinating, history of BPH on medication SKIN: Patient denies any new/evolving skin lesions, no new rashes MUSCULOSKELETAL: Patient denies any muscle aches or pains PSYCHIATRIC: Reports a history of PTSD NEUROLOGICAL: Patient denies any focal neurologic deficits, weakness mass, numbness or tingling in his extremities HOME MEDICATIONS: Please see below. PHYSICAL EXAMINATION: VITAL SIGNS: Temperature 99.8, pulse 85, respiratory rate 24, blood pressure 99/58, pulse oximetry 95% on 3.5 L supplemental oxygen via nasal cannula GENERAL APPEARANCE: Patient is intubated examined in the emergency department. Patient was found to be resting comfortably in his hospital bed. He is alert and oriented 3, no acute distress and able to actively participate in his care. HEENT: Normocephalic, atraumatic, EOMI, sclera nonicteric, fair oral hygiene CARDIOVASCULAR: Regular rate and rhythm, normal S1 and S2, soft systolic ejection murmur appreciated along the left sternal border LUNGS: Fair air movement bilaterally, scattered rhonchi appreciated in the left lower lobe. Otherwise clear to auscultation ABDOMEN: Soft, nontender, non-protuberant, no guarding EXTREMITIES: Patient able to move all extremities equally and bilaterally. Strength intact in both upper and lower extremities, trace lower extremity edema, no calf tenderness bilaterally NEUROLOGICAL: No focal neurologic deficits, no aphasia or facial drooping appreciated, alert and oriented 3 PSYCHIATRIC: Mood and affect are appropriate LABORATORY DATA: See below. IMAGING: Chest CT (11/10/18): Pending radiology read Chest x-ray 11/10/18) is: Pending radiology read MICROBIOLOGY: Blood culture pending PLAN: Leukocytosis Likely secondary to demargination Unlikely to be pneumonia given patient's chest CT shows improvement when compared to priors Pro-calcitonin ordered and is pending, lactic acid of 1.7 Sputum culture to be obtained Antibiotic therapy to be added/adjusted as appropriate Congestive heart failure Holding home Entresto, torsemide and and spironolactone Albuterol nebulizers, Solu-Medrol 40 every 8 hours By mouth azithromycin 500 mg for anti-inflammatory effect Oxygen therapy as needed Atrial fibrillation Patient is rate controlled, continue home metoprolol with holding parameters for systolic pressure less than 115 or heart rate less than 60 Continue anticoagulation with Coumadin Acute kidney injury Likely secondary to dehydration related to patient's recent history of emesis and diarrhea Chronic kidney disease stage III with baseline creatinine of 1.6, continue with fluid hydration Follow serial BMP Hyperkalemia Likely secondary to patient's dehydration and heart failure medications Treated in the emergency department Reevaluate with BMP in a.m. Hyperlipidemia Continue home atorvastatin 20 mg by mouth daily Esophageal reflux disease Continue home Omeprazole 40 mg by mouth twice a day Continue home ranitidine 150 mg tab BPH Continue home tamsulosin 0.4 mg by mouth daily Insomnia Continue home Ambien 5 mg tab when necessary CODE STATUS: Full code Vital Signs Vital Signs Date Time Temp Pulse Resp B/P (MAP) Pulse Ox O2 Delivery O2 Flow Rate FiO2 11/10/18 03:43 22 93 5.0 11/10/18 02:52 Nasal Cannula 11/10/18 01:52 99.8 85 99/54 Laboratory Data Labs 24H Laboratory Tests 2 11/10/18 02:09: Blood Gas Bicarbonate Standard 23.9, Arterial Blood pH 7.425, Arterial Blood Partial Pressure CO2 36.5, Arterial Blood Partial Pressure O2 72.8L, Arterial Blood Total CO2 24.5, Arterial Blood HCO3 23.4, Arterial Blood Base Excess -0.7, Arterial Blood Oxygen Saturation 94.9L 11/10/18 02:35: Bedside Glucose (Misc Panel) 115H 11/10/18 02:43: Immature Granulocyte % (Auto) 0.4, White Blood Count 17.8H, Red Blood Count 3.62L, Hemoglobin 10.5L, Hematocrit 33.2L, Mean Corpuscular Volume 91.7, Mean Corpuscular Hemoglobin 29.0, Mean Corpuscular Hemoglobin Concent 31.6L, Red Cell Distribution Width 16.0H, Platelet Count 248, Neutrophils (%) (Auto) 87.4H, Lymphocytes (%) (Auto) 7.2L, Monocytes (%) (Auto) 4.5, Eosinophils (%) (Auto) 0.2, Basophils (%) (Auto) 0.3, Neutrophils # (Auto) 15.6H, Lymphocytes # (Auto) 1.3L, Monocytes # (Auto) 0.8, Eosinophils # (Auto) 0.0, Basophils # (Auto) 0.1, Nucleated Red Blood Cells % (auto) 0.0, Prothrombin Time 19.5H, Prothromb Time International Ratio 1.62, Anion Gap 12, Glomerular Filtration Rate 15.7L, Lactic Acid Level 1.7, Calcium Level 9.1, Aspartate Amino Transf (AST/SGOT) 15, Alanine Aminotransferase (ALT/SGPT) 14, Alkaline Phosphatase 117, Total Bilirubin 0.3, Direct Bilirubin < 0.1, Total Creatine Kinase 34L, Creatine Kinase MB 2.0, Creatine Kinase MB Relative Index 5.88H, Troponin I < 0.02, DY-[id number]-[id number]-Type Natriuretic Peptide 89674W, Total Protein 6.6, Albumin 3.0L, Albumin/Globulin Ratio 0.83L CBC/BMP Laboratory Tests 11/10/18 02:43 Red Blood Count 3.62 L, Mean Corpuscular Volume 91.7, Mean Corpuscular Hemoglobin 29.0, Mean Corpuscular Hemoglobin Concent 31.6 L, Red Cell Distribution Width 16.0 H, Neutrophils (%) (Auto) 87.4 H, Lymphocytes (%) (Auto) 7.2 L, Monocytes (%) (Auto) 4.5, Eosinophils (%) (Auto) 0.2, Basophils (%) (Auto) 0.3, Neutrophils # (Auto) 15.6 H, Lymphocytes # (Auto) 1.3 L, Monocytes # (Auto) 0.8, Eosinophils # (Auto) 0.0, Basophils # (Auto) 0.1 Microbiology Microbiology 11/10/18 Blood Culture, Received Pending Home Medications Scheduled Acarbose (Acarbose) 25 Mg Tab, 25 MG PO AC Aspirin (Aspirin EC) 81 Mg Tablet.dr, 81 MG PO DAILY Atorvastatin Calcium (Atorvastatin Calcium) 20 Mg Tab, 20 MG PO DAILY Calcium Carbonate/Vitamin D3 (Calcium 600-Vit D3 400 Tablet) 1 Each Tablet, 1 TAB PO BID Cyanocobalamin (Vitamin B-12) (Vitamin B-12) 1,000 Mcg Tab, 1,000 MCG PO DAILY Epoetin Carson (Procrit) 20,000 Unit/Ml Inj, 20,000 UNIT SC Q2WK Ergocalciferol (Vitamin D2) (Vitamin D2) 50,000 Unit Cap, 50,000 UNIT PO QWEEK WEDNESDAYS Febuxostat (Uloric) 80 Mg Tab, 80 MG PO DAILY Ferrous Gluconate (Ferrous Gluconate) 324 Mg Tab, 324 MG PO BIDWM Fluoxetine Hcl (Fluoxetine HCl) 20 Mg Cap, 80 MG PO DAILY L.acidoph/L.bulg/B.bif/S.therm (Bacid Caplet) 1 Tab Tab, 1 TAB PO DAILY Magnesium Chloride (Slow-Mag) 1 Tab Tab, 1 TAB PO DAILY Metoprolol Succinate (Toprol Xl) 100 Mg Tab.er.24h, 100 MG PO DAILY Mirtazapine (Remeron) 30 Mg Tab, 30 MG PO QHS Multivitamins (Thera M Plus Tablet) 1 Tab Tab, 1 TAB PO DAILY Omeprazole (Omeprazole) 40 Mg Cap, 40 MG PO BID Oxybutynin Chloride (Oxybutynin Chloride ER) 15 Mg Tab, 15 MG PO DAILY Ranitidine HCl (Ranitidine HCl) 150 Mg Tab, 1 TAB PO BID Sacubitril/Valsartan (Entresto 24 mg-26 mg Tablet) 1 Each Tablet, 1 TAB PO QHS Spironolactone (Spironolactone) 25 Mg Tab, 25 MG PO DAILY Tamsulosin HCl (Flomax) 0.4 Mg Cap, 0.4 MG PO DAILY Torsemide (Torsemide) 10 Mg Tablet, 50 MG PO DAILY Warfarin Sodium (Warfarin Sodium) 2 Mg Tab, 2 MG PO 3XW THURSDAY, THURSDAY AND THURSDAY Warfarin Sodium (Warfarin Sodium) 2 Mg Tablet, 3 MG PO 4XWK THURSDAY, THURSDAY, THURSDAY AND THURSDAY Scheduled PRN Albuterol Sulf (Albuterol Sulfate) 2.5 Mg/3 Ml Nebu, 2.5 MG INH Q4H PRN for SHORTNESS OF BREATH Albuterol Sulfate (Proair Hfa) 108 Mcg/Act Aer, 1 PUFF INH Q4H PRN for SHORTNESS OF BREATH Hydrocodone/Acetaminophen (Hydrocodone-Acetamin 10-325 mg) 1 Tab Tab, 2 TAB PO TID PRN for PAIN Nitroglycerin (Nitrostat) 0.4 Mg Subl, 0.4 MG SL NITRO PRN for CHEST PAIN Polyvinyl Alcohol (Artificial Tears) 1.4 % Joyce, 1 DROP OU BID PRN for DRY EYES Trazodone HCl (Trazodone HCl) 50 Mg Tab, 50 MG PO QHS PRN for SLEEP Zolpidem Tartrate (Ambien) 5 Mg Tab, 5 MG PO QHS PRN for SLEEP Allergies Coded Allergies: allopurinol (Verified Allergy, Mild, itching, 09/21/18) A-FIB/CHADSVASC A-FIB History Current/History of A-Fib/PAF?: Yes Current Oral Anticoagulant The: Yes GME ATTESTATION GME ATTESTATION My faculty preceptor for this patient encounter was physically present during the encounter and was fully available. All aspects of the patient interview, examination, medical decision making process, and medical care plan development were reviewed and approved by the faculty preceptor. The faculty preceptor is aware and concurs with the plan as stated in the body of this note and will attest to such by his/her cosignature. BRANDIE QUINTANA DO November 10, 2018 06:29
[2018-11-10 06:58] LABS: HEMATOCRIT 30.4 % (42.0-52.0); HEMOGLOBIN 9.6 g/dl (13.5-17.5); MEAN CORPUSCULAR HEMOGLOBIN 28.8 pg (27.0-33.0); MEAN CORPUSCULAR HGB CONC 31.6 g/dl (32.0-36.5); MEAN CORPUSCULAR VOLUME 91.3 fl (80.0-96.0); PLATELET COUNT, AUTOMATED 234 10^3/uL (150-450); RED BLOOD COUNT 3.33 10^6/uL (4.30-6.10); WHITE BLOOD COUNT 17.4 10^3/uL (4.0-10.0)
[2018-11-10 07:08] LABS: INR 1.78
[2018-11-10 07:30] LABS: ALBUMIN 2.7 GM/DL (3.2-5.2); BILIRUBIN,TOTAL 0.4 MG/DL (0.2-1.0); CALCIUM LEVEL 9.9 MG/DL (8.8-10.2); CREATININE FOR GFR 3.72 MG/DL (0.70-1.30); GLOMERULAR FILTRATION RATE 17.2 (>42); POTASSIUM SERUM 5.5 MEQ/L (3.5-5.1); TOTAL PROTEIN 6.3 GM/DL (6.4-8.2)
[2018-11-10] MEDS ORDERED: DOXYCYCLINE HYCLATE 100 MG in D5W MINI-BAG PLUS 100 ML IV SCH (08:00)
[2018-11-10] MEDS: IPRATROPIUM 0.5MG/ALBUTEROL 2.5MG INH SOL UD 3ML (DUONEB)(J7620) NEB SCH ×3 (08:04→19:44)
[2018-11-10] MEDS: MULTIVITAMINS/MINERALS THERAP 1 TAB PO SCH (08:52)
[2018-11-10] MEDS: LACTOBACILLUS ACIDOPHILUS CAP (BACID) PO SCH (08:52)
[2018-11-10] MEDS: raNITIdine SYRUP 150 MG/10 ML UDC PO SCH ×2 (08:52→20:50)
[2018-11-10] MEDS: CYANOCOBALAMIN 500 MCG TAB PO SCH (08:52)
[2018-11-10] MEDS: FLUoxetine 20 MG CAP PO SCH (08:52)
[2018-11-10] MEDS: ATORVASTATIN 20 MG TAB PO SCH (08:52)
[2018-11-10] MEDS: OMEPRAZOLE 20 MG CAP PO SCH ×2 (08:52→20:49)
[2018-11-10] MEDS: FERROUS GLUCONATE 324 MG TAB PO SCH ×2 (08:52→17:00)
[2018-11-10] MEDS: ASPIRIN 81 MG ENTERIC TAB PO SCH (08:52)
[2018-11-10] MEDS: oxyBUTYnin *DITROPAN XL* 5 MG TABCR PO SCH (08:53)
[2018-11-10] MEDS: HEPARIN SOD (PORCINE) 5000 UNITS/ML VIAL SQ SCH ×2 (08:53→20:51)
[2018-11-10] MEDS: FEBUXOSTAT 40 MG TABLET (ULORIC) PO SCH (08:53)
[2018-11-10] MEDS ORDERED: CALCIUM/VITAMIN D 500 MG TAB PO SCH (09:00)
[2018-11-10] MEDS: MAGNESIUM CHLORIDE 64 MG TABCR (SLO MAG) PO SCH (09:00)
[2018-11-10] MEDS: CALCIUM/VITAMIN D 500 MG TAB PO SCH ×2 (09:00→20:50)
[2018-11-10] MEDS ORDERED: VITAMIN D 50,000 UNITS CAPSULE (ERGOCALCIFEROL 1.25MG) PO SCH (09:00)
[2018-11-10] MEDS ORDERED: METOPROLOL SUCC (TopROL XL) 100MG *XL* TAB PO SCH (09:00)
[2018-11-10] MEDS ORDERED: NORCO, ANEXSIA 5/325MG TABLET (HYDROcodone/ACETAMINOPHEN) PO PRN (09:30)
--- NOTE | 2018-11-10 12:00 | REP ---
CHEST, SINGLE VIEW: Single view of the chest is performed and compared to prior study of 09/21/2018. Cardiomegaly is again noted. Previously noted bilateral infiltrates are improved with mild scattered residual infiltrates bilaterally. Mediastinal silhouette is unchanged. IMPRESSION: Improved bilateral infiltrates with mild bibasilar residual infiltrates remaining. Electronically Signed by Bora Wong MD 11/11/2018 10:52 A
--- NOTE | 2018-11-10 13:33 | IPNPDOC ---
Date Seen The patient was seen on 11/10/18. 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 Patient presents the emergency department via EMS with a reported history of a fall. Per patient, he had not been feeling well for the last couple of days. Yesterday, 11/09/18, patient reports multiple episodes of emesis, GI upset and diarrhea. Additionally, patient reports an increased oxygen requirement from his baseline of 6 L/m 2 over 8 L/m in the setting of increasing fatigue. he was here recently for pneumonia Review of systems +general weakness no fever no chills no chest pain no abdominal pain no diarrhea PHYSICAL EXAMINATION: GENERAL APPEARANCE: AA Ox2,no acute distress and looks pale; family in the room. HEENT: Normocephalic, atraumatic, EOMI, sclera nonicteric, CARDIOVASCULAR: Regular rate and rhythm, normal S1 and S2, Lungs, decreased breath sound and bilateral basal crackles ABDOMEN: Soft, nontender, non-protuberant, no guarding EXTREMITIES: Patient able to move all extremities equally and bilaterally. Str ength intact in both upper and lower extremities, no edema NEUROLOGICAL: No focal neurologic deficits, no aphasia or facial drooping appreciated, alert and oriented 3 PSYCHIATRIC: Mood and affect are appropriate PLAN: 1. acute on CKD stage 3, his baseline Cr is about 1.6 and yesterday was >4 and improving will continue IVF and follow Cr 2. Hyperkalemia, resolving and will continue to monitor 3. Hypotension, will hold his antihypertensive medicines 4. Chronic respiratory failure, he is only on 2L O2 and better than his baseline 5. Chronic diastolic CHF, compensated 6. COPD and interstitial Lung disease, will tapering down steroid 7. Leukocytosis, was treated with abx recently for pneumonia and no evidence of active infection and will follow 8. Pafib, NSR, will continue Coumadin A-FIB/CHADSVASC A-FIB History Current/History of A-Fib/PAF?: Yes Current Oral Anticoagulant The: Yes VS, I&O, 24H, Fishbone Vital Signs/I&O Vital Signs Date Time Temp Pulse Resp B/P (MAP) Pulse Ox O2 Delivery O2 Flow Rate FiO2 11/10/18 10:43 83 18 101/64 (76) 96 2.0 11/10/18 10:15 97.8 11/10/18 06:41 Nasal Cannula Laboratory Data 24H LABS Laboratory Tests 2 11/10/18 02:09: Blood Gas Bicarbonate Standard 23.9, Arterial Blood pH 7.425, Arterial Blood Partial Pressure CO2 36.5, Arterial Blood Partial Pressure O2 72.8L, Arterial Blood Total CO2 24.5, Arterial Blood HCO3 23.4, Arterial Blood Base Excess -0.7, Arterial Blood Oxygen Saturation 94.9L 11/10/18 02:35: Bedside Glucose (Misc Panel) 115H 11/10/18 02:43: Immature Granulocyte % (Auto) 0.4, White Blood Count 17.8H, Red Blood Count 3.62L, Hemoglobin 10.5L, Hematocrit 33.2L, Mean Corpuscular Volume 91.7, Mean Corpuscular Hemoglobin 29.0, Mean Corpuscular Hemoglobin Concent 31.6L, Red Cell Distribution Width 16.0H, Platelet Count 248, Neutrophils (%) (Auto) 87.4H, Lymphocytes (%) (Auto) 7.2L, Monocytes (%) (Auto) 4.5, Eosinophils (%) (Auto) 0.2, Basophils (%) (Auto) 0.3, Neutrophils # (Auto) 15.6H, Lymphocytes # (Auto) 1.3L, Monocytes # (Auto) 0.8, Eosinophils # (Auto) 0.0, Basophils # (Auto) 0.1, Nucleated Red Blood Cells % (auto) 0.0, Prothrombin Time 19.5H, Prothromb Time International Ratio 1.62, Anion Gap 12, Glomerular Filtration Rate 15.7L, Lactic Acid Level 1.7, Calcium Level 9.1, Aspartate Amino Transf (AST/SGOT) 15, Alanine Aminotransferase (ALT/SGPT) 14, Alkaline Phosphatase 117, Total Bilirubin 0.3, Direct Bilirubin < 0.1, Total Creatine Kinase 34L, Creatine Kinase MB 2.0, Creatine Kinase MB Relative Index 5.88H, Troponin I < 0.02, LM-[id number]-Type Natriuretic Peptide 23098G, Total Protein 6.6, Albumin 3.0L, Albumin/Globulin Ratio 0.83L 11/10/18 06:43: Nucleated Red Blood Cells % (auto) 0.0, Prothrombin Time 21.0H, Prothromb Time International Ratio 1.78, Anion Gap 9, Glomerular Filtration Rate 17.2L, Calcium Level 9.9, Aspartate Amino Transf (AST/SGOT) 13, Alanine Aminotransferase (ALT/SGPT) 9L, Alkaline Phosphatase 98, Total Bilirubin 0.4, Total Protein 6.3L, Albumin 2.7L, Albumin/Globulin Ratio 0.75L, Blood Urea Nitrogen 82H, Creatinine 3.72H, Sodium Level 133L, Potassium Level 5.5H, Chloride Level 99, Carbon Dioxide Level 25 CBC/BMP Laboratory Tests 11/10/18 02:43 Red Blood Count 3.62 L, Mean Corpuscular Volume 91.7, Mean Corpuscular Hemoglobin 29.0, Mean Corpuscular Hemoglobin Concent 31.6 L, Red Cell Distribution Width 16.0 H, Neutrophils (%) (Auto) 87.4 H, Lymphocytes (%) (Auto) 7.2 L, Monocytes (%) (Auto) 4.5, Eosinophils (%) (Auto) 0.2, Basophils (%) (Auto) 0.3, Neutrophils # (Auto) 15.6 H, Lymphocytes # (Auto) 1.3 L, Monocytes # (Auto) 0.8, Eosinophils # (Auto) 0.0, Basophils # (Auto) 0.1 11/10/18 06:43 Red Blood Count 3.33 L, Mean Corpuscular Volume 91.3, Mean Corpuscular Hemoglobin 28.8, Mean Corpuscular Hemoglobin Concent 31.6 L, Red Cell Distribution Width 16.0 H, Calcium Level 9.9, Aspartate Amino Transf (AST/SGOT) 13, Alanine Aminotransferase (ALT/SGPT) 9 L, Alkaline Phosphatase 98, Total Bilirubin 0.4, Total Protein 6.3 L, Albumin 2.7 L Microbiology Microbiology 11/10/18 Blood Culture, Received Pending 11/10/18 Blood Culture, Received Pending DAPHNEY SHELDON MD November 10, 2018 13:33
[2018-11-10] MEDS ORDERED: traZODone 50 MG TAB PO PRN (14:30)
[2018-11-10] MEDS: PERCOCET 5MG/325MG TAB PO PRN ×2 (16:44→23:43)
[2018-11-10] MEDS ORDERED: WARFARIN SOD 2 MG TAB PO SCH (17:00)
[2018-11-10] MEDS: methylPREDNISolone INJ 40 MG/1 ML VIAL (J2920) IV SCH (17:00)
[2018-11-10] MEDS: MIRTAZAPINE 15 MG TAB PO SCH (20:50)
[2018-11-11] VITALS: BP 109/61
[2018-11-11] MEDS: IPRATROPIUM 0.5MG/ALBUTEROL 2.5MG INH SOL UD 3ML (DUONEB)(J7620) NEB SCH ×4 (01:42→20:00)
[2018-11-11 04:00] VITALS: BP 112/62
[2018-11-11 06:00] VITALS: BP 119/68
[2018-11-11] MEDS: methylPREDNISolone INJ 40 MG/1 ML VIAL (J2920) IV SCH (06:22)
[2018-11-11] MEDS: FERROUS GLUCONATE 324 MG TAB PO SCH ×2 (07:37→17:50)
[2018-11-11] MEDS: PERCOCET 5MG/325MG TAB PO PRN ×3 (07:37→20:45)
[2018-11-11 08:00] VITALS: BP 133/56
[2018-11-11] MEDS: oxyBUTYnin *DITROPAN XL* 5 MG TABCR PO SCH (09:02)
[2018-11-11] MEDS: OMEPRAZOLE 20 MG CAP PO SCH ×2 (09:02→20:44)
[2018-11-11] MEDS: MULTIVITAMINS/MINERALS THERAP 1 TAB PO SCH (09:02)
[2018-11-11] MEDS: ATORVASTATIN 20 MG TAB PO SCH (09:02)
[2018-11-11] MEDS: CYANOCOBALAMIN 500 MCG TAB PO SCH (09:03)
[2018-11-11] MEDS: CALCIUM/VITAMIN D 500 MG TAB PO SCH ×2 (09:03→20:45)
[2018-11-11] MEDS: LACTOBACILLUS ACIDOPHILUS CAP (BACID) PO SCH (09:03)
[2018-11-11] MEDS: ASPIRIN 81 MG ENTERIC TAB PO SCH (09:04)
[2018-11-11] MEDS: TAMSULOSIN 0.4 MG CAP PO SCH (09:04)
[2018-11-11] MEDS: FLUoxetine 20 MG CAP PO SCH (09:04)
[2018-11-11] MEDS: FEBUXOSTAT 40 MG TABLET (ULORIC) PO SCH (09:04)
[2018-11-11] MEDS: HEPARIN SOD (PORCINE) 5000 UNITS/ML VIAL SQ SCH ×2 (09:05→20:44)
[2018-11-11] MEDS: raNITIdine SYRUP 150 MG/10 ML UDC PO SCH ×2 (09:05→20:44)
[2018-11-11] MEDS: MAGNESIUM CHLORIDE 64 MG TABCR (SLO MAG) PO SCH (09:05)
--- NOTE | 2018-11-11 09:05 | REP ---
Clinical: COPD. Technique: PA and lateral. Comparison: 11/10/2018. Findings: Mediastinum and cardiac silhouette are stable with cardiomegaly again noted. Lung hobbs demonstrate chronic changes with patchy bibasilar air space disease suggesting elements of atelectasis/infiltrate (left greater than right). No obvious effusion. No pneumothorax. Skeletal structures intact. Impression: Stable cardiomegaly and chronic changes Subtle bibasilar atelectasis (left greater than right) similar to prior examination. Electronically Signed by Kemar Mirza MD 11/11/2018 08:56 A
[2018-11-11 09:35] LABS: CALCIUM LEVEL 9.4 MG/DL (8.8-10.2); CREATININE FOR GFR 2.76 MG/DL (0.70-1.30); GLOMERULAR FILTRATION RATE 24.2 (>42); POTASSIUM SERUM 5.4 MEQ/L (3.5-5.1)
[2018-11-11] MEDS ORDERED: SODIUM CHLORIDE NASAL 0.65% SPRAY BTL (OCEAN) PRN (10:00)
[2018-11-11] MEDS ORDERED: LACTULOSE 20 GM/30 ML SYRUP UD PO ONE (11:00)
[2018-11-11] MEDS ORDERED: PATIROMER SORBITEX CALCIUM 8.4 GM POWDER PACKET (VELTASSA) PO ONE (12:00)
[2018-11-11] MEDS ORDERED: predniSONE 10 MG TAB PO ONE (13:00)
--- NOTE | 2018-11-11 13:12 | IPNPDOC ---
Date Seen The patient was seen on 11/11/18. 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 Patient presents the emergency department via EMS with a reported history of a fall. Per patient, he had not been feeling well for the last couple of days. Yesterday, 11/09/18, patient reports multiple episodes of emesis, GI upset and diarrhea. Additionally, patient reports an increased oxygen requirement from his baseline of 6 L/m 2 over 8 L/m in the setting of increasing fatigue. he was here recently for pneumonia he is feeling much better today Review of systems no fever no chills no chest pain no abdominal pain no diarrhea PHYSICAL EXAMINATION: GENERAL APPEARANCE: AA Ox3, sitting in the chair, comfortable HEENT: Normocephalic, atraumatic, EOMI, sclera nonicteric, CARDIOVASCULAR: Regular rate and rhythm, normal S1 and S2, Lungs, decreased breath sound and bilateral basal crackles ABDOMEN: Soft, nontender, non-protuberant, no guarding EXTREMITIES: Patient able to move all extremities equally and bilaterally. Strength intact in both upper and lower extremities, no edema NEUROLOGICAL: No focal neurologic deficits, no aphasia or facial drooping appreciated, alert and oriented 3 PSYCHIATRIC: Mood and affect are appropriate PLAN: 1. acute on CKD stage 3, his baseline Cr is about 1.6 and now is at 2.6 from >4 will d/c IVF and follow Cr 2. Hyperkalemia, resolving and down to 5.6 today and will continue to monitor 3. Hypotension, resolved 4. Chronic respiratory failure, he is only on 4L O2 and better than his baseline 5. Chronic diastolic CHF, compensated 6. COPD and interstitial Lung disease, will tapering down steroid 7. Leukocytosis, was treated with abx recently for pneumonia and no evidence of active infection and will follow 8. Pafib, NSR, will continue Coumadin 9. may discharge tomorrow A-FIB/CHADSVASC A-FIB History Current/History of A-Fib/PAF?: Yes Current PO Anticoag Therapy: Yes VS, I&O, 24H, Fishbone Vital Signs/I&O Vital Signs Date Time Temp Pulse Resp B/P (MAP) Pulse Ox O2 Delivery O2 Flow Rate FiO2 11/11/18 08:07 16 11/11/18 08:00 97.2 75 133/56 (81) 91 5.0 11/10/18 06:41 Nasal Cannula I&O- Last 24 Hours up to 6 AM 11/11/18 06:00 Intake Total 2000 ml Output Total 1275 ml Balance 725 ml Laboratory Data 24H LABS Laboratory Tests 2 11/11/18 08:57: Anion Gap 12, Glomerular Filtration Rate 24.2L, Blood Urea Nitrogen 76H, Creatinine 2.76H, Sodium Level 135L, Potassium Level 5.4H, Chloride Level 102, Carbon Dioxide Level 21, Calcium Level 9.4 CBC/BMP Laboratory Tests 11/11/18 08:57 Calcium Level 9.4 Microbiology Microbiology 11/10/18 Blood Culture - Preliminary, Resulted No growth after 24 hours . All specim... 11/10/18 Blood Culture - Preliminary, Resulted No growth after 24 hours . All specim... DAPHNEY SHELDON MD November 11, 2018 13:12
[2018-11-11 15:45] VITALS: BP 129/67
[2018-11-11] MEDS ORDERED: WARFARIN SOD 2 MG TAB PO SCH (17:00)
[2018-11-11] MEDS: MIRTAZAPINE 15 MG TAB PO SCH (20:45)
[2018-11-11 22:00] VITALS: BP 142/82
[2018-11-12 06:00] VITALS: BP 146/63
[2018-11-12 07:07] LABS: CREATININE FOR GFR 2.33 MG/DL (0.70-1.30); GLOMERULAR FILTRATION RATE 29.5 (>42); POTASSIUM SERUM 5.4 MEQ/L (3.5-5.1)
[2018-11-12] MEDS: raNITIdine SYRUP 150 MG/10 ML UDC PO SCH (08:42)
[2018-11-12] MEDS: CALCIUM/VITAMIN D 500 MG TAB PO SCH (08:43)
[2018-11-12] MEDS: FEBUXOSTAT 40 MG TABLET (ULORIC) PO SCH (08:43)
[2018-11-12] MEDS: TAMSULOSIN 0.4 MG CAP PO SCH (08:43)
[2018-11-12] MEDS: HEPARIN SOD (PORCINE) 5000 UNITS/ML VIAL SQ SCH (08:43)
[2018-11-12] MEDS: FLUoxetine 20 MG CAP PO SCH (08:43)
[2018-11-12] MEDS: CYANOCOBALAMIN 500 MCG TAB PO SCH (08:43)
[2018-11-12 08:44] VITALS: BP 146/63
[2018-11-12] MEDS: FERROUS GLUCONATE 324 MG TAB PO SCH (08:44)
[2018-11-12] MEDS: OMEPRAZOLE 20 MG CAP PO SCH (08:44)
[2018-11-12] MEDS: ATORVASTATIN 20 MG TAB PO SCH (08:44)
[2018-11-12] MEDS: oxyBUTYnin *DITROPAN XL* 5 MG TABCR PO SCH (08:44)
[2018-11-12] MEDS: ASPIRIN 81 MG ENTERIC TAB PO SCH (08:44)
[2018-11-12] MEDS: LACTOBACILLUS ACIDOPHILUS CAP (BACID) PO SCH (08:44)
[2018-11-12] MEDS: MULTIVITAMINS/MINERALS THERAP 1 TAB PO SCH (08:44)
[2018-11-12] MEDS: PERCOCET 5MG/325MG TAB PO PRN (08:44)
[2018-11-12] MEDS ORDERED: CARVedilol 3.125 MG TAB PO SCH (09:00)
[2018-11-12] MEDS ORDERED: predniSONE 10 MG TAB PO SCH (09:00)
[2018-11-12] MEDS: MAGNESIUM CHLORIDE 64 MG TABCR (SLO MAG) PO SCH (09:00)
[2018-11-12] MEDS ORDERED: TORS10TA3 PO (09:52)
[2018-11-12] MEDS ORDERED: TOPR100T PO (09:52)
--- NOTE | 2018-11-12 17:26 | DS.PDOC ---
Discharge Summary General Date of Admission November 10, 2018 at 04:56 Date of Discharge november 12, 2018 Attending Physician: DAPHNEY SHELDON MD Discharge Summary PROCEDURES PERFORMED DURING STAY: NONE ADMITTING DIAGNOSES: 1. ACUTE ON ckd STAGE 3 2 Hyperkalemia DISCHARGE DIAGNOSES: 1. acute on CKD stage 3 2. Hyperkalemia 3. Hypotension 4. Chronic respiratory failure 5. Chronic diastolic CHF, compensated 6. COPD and interstitial Lung disease 7. Pafib, NSR, on Coumadin COMPLICATIONS/CHIEF COMPLAINT: Acute Kidney Injury Superimposed By Ckd. 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 Patient presents the emergency department via EMS with a reported history of a fall. Per patient, he had not been feeling well for the last couple of days. Yesterday, 11/09/18, patient reports multiple episodes of emesis, GI upset and diarrhea. Additionally, patient reports an increased oxygen requirement from his baseline of 6 L/m 2 over 8 L/m in the setting of increasing fatigue. In the emergency department, the patient was found to have an elevated white count of 17.8. CMP studies indicated a sodium of 135 and a potassium of 6.2. BUN/creatinine was found to be 90/4.03. Patient normally has a baseline creatinine of 1.6. Troponins negativ, proBNP 10,381. Lactic acid level of 1.7. HOSPITAL COURSE: After admission, he was treated with IVF, his antihypertensive medicines and diuretics were on hold; Gradually, his conditions were improved and went back to his baseline. he has leukocytosis and no evidence of active infection. his chest ct showed resolving pneumonia and so he did not get any abx in this admission. on discharge, his entresto was discontinued; his BB and torsemide was decreased. DISCHARGE MEDICATIONS: Please see below. ALLERGIES: Please see below. PHYSICAL EXAMINATION ON DISCHARGE: VITAL SIGNS: Please see below. GENERAL: AA Ox3 HEENT:atraumatic NECK:no JVD CARDIOVASCULAR EXAMINATION: S1 S2 regular no murmur RESPIRATORY EXAMINATION: decreased breath sound, bilateral basal crackles ABDOMINAL EXAMINATION:soft bs + non tender EXTREMITIES:no edema SKIN: no rash NEUROLOGICAL EXAMINATION: non focal PSYCHIATRIC EXAMINATION: no acute psychosis LABORATORY DATA: Please see below. IMAGING: Chest CT PROGNOSIS: fair ACTIVITY: [As tolerated]. DIET: cardiac diet DISPOSITION: 01 Home, Self-Care. ITEMS TO FOLLOWUP ON ON OUTPATIENT: 1. PCP in 1-2 weeks DISCHARGE CONDITION: [Stable]. TIME SPENT ON DISCHARGE: Greater than 35 minutes. Vital Signs/I&Os Vital Signs Date Time Temp Pulse Resp B/P (MAP) Pulse Ox O2 Delivery O2 Flow Rate FiO2 11/12/18 09:47 16 11/12/18 08:44 76 146/63 11/12/18 08:00 3.0 11/12/18 06:00 97.6 96 11/10/18 06:41 Nasal Cannula l I&O- Last 24 Hours up to 6 AM 11/12/18 06:00 Intake Total 2510 ml Output Total 1275 ml Balance 1235 ml Laboratory Data Labs 24H Laboratory Tests 2 11/12/18 06:18: Anion Gap 6L, Glomerular Filtration Rate 29.5L, Blood Urea Nitrogen 69H, Creatinine 2.33H, Sodium Level 133L, Potassium Level 5.4H, Chloride Level 102, Carbon Dioxide Level 25, Calcium Level 10.0 CBC/BMP Laboratory Tests 11/12/18 06:18 Calcium Level 10.0 Microbiology Microbiology 11/10/18 Blood Culture - Preliminary, Resulted No Growth after 48 hours. All Specime... 11/10/18 Blood Culture - Preliminary, Resulted No Growth after 48 hours. All Specime... Discharge Medications Scheduled Acarbose (Acarbose) 25 Mg Tab, 25 MG PO AC, (Reported) Aspirin (Aspirin EC) 81 Mg Tablet.dr, 81 MG PO DAILY, (Reported) Atorvastatin Calcium (Atorvastatin Calcium) 20 Mg Tab, 20 MG PO DAILY, (Reported) Calcium Carbonate/Vitamin D3 (Calcium 600-Vit D3 400 Tablet) 1 Each Tablet, 1 TAB PO BID, (Reported) Cyanocobalamin (Vitamin B-12) (Vitamin B-12) 1,000 Mcg Tab, 1,000 MCG PO DAILY, (Reported) Epoetin Carson (Procrit) 20,000 Unit/Ml Inj, 20,000 UNIT SC Q2WK, (Reported) Ergocalciferol (Vitamin D2) (Vitamin D2) 50,000 Unit Cap, 50,000 UNIT PO QWEEK, (Reported) WEDNESDAYS Febuxostat (Uloric) 80 Mg Tab, 80 MG PO DAILY, (Reported) Ferrous Gluconate (Ferrous Gluconate) 324 Mg Tab, 324 MG PO BIDWM, (Reported) Fluoxetine Hcl (Fluoxetine HCl) 20 Mg Cap, 80 MG PO DAILY, (Reported) L.acidoph/L.bulg/B.bif/S.therm (Bacid Caplet) 1 Tab Tab, 1 TAB PO DAILY, (Reported) Magnesium Chloride (Slow-Mag) 1 Tab Tab, 1 TAB PO DAILY, (Reported) Metoprolol Succinate (Toprol Xl) 100 Mg Tab.er.24h, 25 MG PO DAILY Mirtazapine (Remeron) 30 Mg Tab, 30 MG PO QHS, (Reported) Multivitamins (Thera M Plus Tablet) 1 Tab Tab, 1 TAB PO DAILY, (Reported) Omeprazole (Omeprazole) 40 Mg Cap, 40 MG PO BID, (Reported) Oxybutynin Chloride (Oxybutynin Chloride ER) 15 Mg Tab, 15 MG PO DAILY, (Reported) Ranitidine HCl (Ranitidine HCl) 150 Mg Tab, 1 TAB PO BID, (Reported) Tamsulosin HCl (Flomax) 0.4 Mg Cap, 0.4 MG PO DAILY, (Reported) Torsemide (Torsemide) 10 Mg Tablet, 10 MG PO DAILY Warfarin Sodium (Warfarin Sodium) 2 Mg Tab, 2 MG PO 3XW, (Reported) THURSDAY, THURSDAY AND THURSDAY Warfarin Sodium (Warfarin Sodium) 2 Mg Tablet, 3 MG PO 4XWK, (Reported) THURSDAY, THURSDAY, THURSDAY AND THURSDAY Scheduled PRN Albuterol Sulf (Albuterol Sulfate) 2.5 Mg/3 Ml Nebu, 2.5 MG INH Q4H PRN for SHORTNESS OF BREATH, (Reported) Albuterol Sulfate (Proair Hfa) 108 Mcg/Act Aer, 1 PUFF INH Q4H PRN for SHORTNESS OF BREATH, (Reported) Hydrocodone/Acetaminophen (Hydrocodone-Acetamin 10-325 mg) 1 Tab Tab, 2 TAB PO TID PRN for PAIN, (Reported) Nitroglycerin (Nitrostat) 0.4 Mg Subl, 0.4 MG SL NITRO PRN for CHEST PAIN, (Reported) Polyvinyl Alcohol (Artificial Tears) 1.4 % Joyce, 1 DROP OU BID PRN for DRY EYES, (Reported) Trazodone HCl (Trazodone HCl) 50 Mg Tab, 50 MG PO QHS PRN for SLEEP, (Reported) Zolpidem Tartrate (Ambien) 5 Mg Tab, 5 MG PO QHS PRN for SLEEP, (Reported) Allergies Coded Allergies: allopurinol (Verified Allergy, Mild, itching, 09/21/18) DAPHNEY SHELDON MD November 12, 2018 17:26
== END 2018-11-12 11:45 | disposition home or self-care (01) | DRG 683 ==
LOC: M ED 01:48 → M ED INP 04:56 → M ICU 09:51 → M MS5PR 11-11 15:43
PROVIDERS: ADMIT Internal Medicine Nephrology; ATTEND Hospitalist
DX: N17.9 Acute kidney failure, unspecified (principal); I50.32 Chronic diastolic (congestive) heart failure; I13.0 Hypertensive heart and chronic kidney disease with heart failure and stage 1 through stage 4 chronic kidney disease, or unspecified chronic kidney disease; J96.11 Chronic respiratory failure with hypoxia; J84.9 Interstitial pulmonary disease, unspecified; D72.829 Elevated white blood cell count, unspecified; I48.91 Unspecified atrial fibrillation; E87.5 Hyperkalemia; E86.0 Dehydration; E78.5 Hyperlipidemia, unspecified; K21.9 Gastro-esophageal reflux disease without esophagitis; N40.0 Benign prostatic hyperplasia without lower urinary tract symptoms; G47.00 Insomnia, unspecified; N18.3 Chronic kidney disease, stage 3 (moderate); M32.14 Glomerular disease in systemic lupus erythematosus; E11.22 Type 2 diabetes mellitus with diabetic chronic kidney disease; J44.9 Chronic obstructive pulmonary disease, unspecified; Z98.49 Cataract extraction status, unspecified eye; Z87.891 Personal history of nicotine dependence; Z99.81 Dependence on supplemental oxygen; Z79.82 Long term (current) use of aspirin; Z79.01 Long term (current) use of anticoagulants; Z79.899 Other long term (current) drug therapy

== ENCOUNTER 2018-11-17 10:24 | Inpatient (IN) | payer OTHER, MEDICARE ==
[~2018-11-17] VITALS: Ht 172.7 cm; Wt 113.9 kg
[2018-11-17] MEDS: MULTIVITAMINS/MINERALS THERAP 1 TAB PO SCH (09:00)
[2018-11-17] MEDS: ASPIRIN 81 MG ENTERIC TAB PO SCH (09:00)
[2018-11-17] MEDS: oxyBUTYnin *DITROPAN XL* 5 MG TABCR PO SCH (09:00)
[2018-11-17] MEDS: CYANOCOBALAMIN 500 MCG TAB PO SCH (09:00)
[2018-11-17] MEDS: FEBUXOSTAT 40 MG TABLET (ULORIC) PO SCH (09:00)
[~2018-11-17 10:24] MED LIST changes: +CALC1TAB82 PO; +ENTR1TAB PO; +METOPROLOL SUCC (TopROL XL) 50MG **XL** TAB PO SCH; +SPIRONOLACTONE 25 MG TAB PO SCH; +TOPR100T PO; +TORS10TA3 PO; -TRAZ-160 PO; +TRAZ-252 PO; +[UNRECOGNIZED DRUG - CODE] PO
[2018-11-17] MEDS ORDERED: ACETAMINOPHEN TAB 650MG DOSE (2X325MG) PO ONE (11:00)
[2018-11-17 11:05] LABS: BASO % 0.2 % (0.0-1.0); EOS # 0.2 10^3/uL (0.0-0.50); EOS % 1.8 % (0.0-3.0); HEMATOCRIT 32.8 % (42.0-52.0); HEMOGLOBIN 10.1 g/dl (13.5-17.5); LYMPH % 7.1 % (24.0-44.0); MEAN CORPUSCULAR HGB CONC 30.8 g/dl (32.0-36.5); MEAN CORPUSCULAR VOLUME 94.3 fl (80.0-96.0); MONO % 7.4 % (0.0-5.0); NEUTROPHILS # 11.3 10^3/uL (1.8-7.7); NEUTROPHILS % 82.8 % (36.0-66.0); PLATELET COUNT, AUTOMATED 212 10^3/uL (150-450); RED BLOOD COUNT 3.48 10^6/uL (4.30-6.10); WHITE BLOOD COUNT 13.6 10^3/uL (4.0-10.0)
--- NOTE | 2018-11-17 11:12 | REP ---
Portable chest x-ray: Single view. History: Dyspnea and cough. Comparison chest x-ray: November 11, 2018. Findings: Left hemidiaphragm remains somewhat elevated. Heart is enlarged as before. Pulmonary vascular congestion is seen with cephalization. There are increased markings in the lung bases bilaterally consistent with bibasilar infiltrates/pneumonia. No free pleural effusion seen. Impression: Cardiomegaly with vascular congestion noted. Bibasilar infiltrates consistent with pneumonia. Electronically Signed by Mustapha Brown MD 11/17/2018 12:35 P
[2018-11-17] MEDS ORDERED: FUROSEMIDE 40 MG/4 ML VIAL (J1940) IV ONE (11:15)
[2018-11-17 11:31] LABS: BLOOD UREA NITROGEN 45 MG/DL (7-18); CALCIUM LEVEL 8.2 MG/DL (8.8-10.2); CARBON DIOXIDE LEVEL 28 MEQ/L (21-32); CHLORIDE LEVEL 98 MEQ/L (98-107); CPK CREATINE PHOSPHOKINASE 20 U/L (39-308); CREATININE FOR GFR 2.41 MG/DL (0.70-1.30); GLOMERULAR FILTRATION RATE 28.3 (>42); GLUCOSE, FASTING 136 MG/DL (70-100); POTASSIUM SERUM 4.2 MEQ/L (3.5-5.1); SODIUM LEVEL 136 MEQ/L (136-145); TROPONIN I < 0.02 NG/ML (< 0.10)
[2018-11-17] MEDS: FLUoxetine 20 MG CAP PO SCH (12:00)
[2018-11-17] MEDS ORDERED: ANEXSIA, NORCO 7.5MG/325MG TABLET(HYDROCODONE/APAP) PO ONE (12:30)
[2018-11-17] MEDS ORDERED: METO1TAB7 PO (12:53)
[2018-11-17] MEDS ORDERED: TORS10TA3 PO (12:53)
[2018-11-17] MEDS ORDERED: ATOR40TA75 PO (12:53)
[2018-11-17] MEDS ORDERED: SPIR-10 PO (12:53)
[2018-11-17] MEDS ORDERED: GABA600T4 PO (12:53)
[2018-11-17] MEDS ORDERED: ENTR1TAB PO (12:53)
[2018-11-17] MEDS ORDERED: OMEP20TA18 PO (12:53)
[2018-11-17] MEDS ORDERED: POLYVINYL ALCOHOL OPHTH SOLN 15 ML(LIQUITEARS) OU PRN (13:45)
[2018-11-17] MEDS ORDERED: traZODone 50 MG TAB PO PRN (13:45)
[2018-11-17] MEDS ORDERED: ALBUTEROL SULFATE 2.5 MG/0.5 ML INH NEB SOLN INH PRN (13:45)
[2018-11-17] MEDS ORDERED: zolPIDEM TARTRATE 5 MG TAB PO PRN (13:45)
--- NOTE | 2018-11-17 14:30 | HPEPDOC ---
[facility] Medical History & Physical Date of Admission November 17, 2018 Date of Service: November 17, 2018 History and Physical CHIEF COMPLAINT: hypotension, cough, sob HISTORY OF PRESENT ILLNESS: 73 yo male recently discharged 11/12/18 after a two day stay for hyperkalemia and gwen/ckd was sent to ER by his visiting nurse for hypotension. He states he has been feeling fine after discharge but today on day of admission has been feeling lethargic, weak and short of breath. Further discussion he states he has been coughing with yellow sputum for the past few days. Denies chest pain, abdominal pain, n/v/d. PAST MEDICAL HISTORY: # CKD III/lupus nephritis previously on dialysis # lupus # Hyperkalemia # Hypotension # Chronic respiratory failure # Chronic diastolic CHF, compensated # possible ILD # paroxysmal afib Coumadin # gout # BPH # DLP ALLERGIES: Please see below. REVIEW OF SYSTEMS: negative except as per hpi HOME MEDICATIONS: Please see below. PHYSICAL EXAMINATION: VITAL SIGNS: See below GENERAL APPEARANCE: pale, NAD HEENT: NC/AT, EOMI, PERRL CARDIOVASCULAR: +S1S2 LUNGS: CTA B/L, diminished breath sounds b/l lower bases ABDOMEN: soft, obese, NT, +BS Ext: trace peripheral edema LABORATORY DATA: See below. MICROBIOLOGY: Please see below. ASSESSMENT: 73 yo male recently discharged 11/12/18 returns for lethargy, weakness, shortness of breath found to be hypotensive possibly secondary to pneumonia. #septic shock - secondary to HCAP - SCx, respiratory panel, mrsa screen pending - zosyn/vanco renal dosing - stress dose steroids - d/w mortgage loan funder - assistance greatly appreciated - central line placement if pressers needed #likely adrenal insufficiency - stress dose steroids # HFpEF #chronic hypoxic respiratory failure #afib - on coumadin - supratherapeutic - hold coumadin today - daily INR #CKDIII/lupus nephritis - was previously on dialysis #gout #BPH #lupus #DLP - statin therapy #DVT prophylaxis - as above INR supra-therapeutic Vital Signs Vital Signs Date Time Temp Pulse Resp B/P (MAP) Pulse Ox O2 Delivery O2 Flow Rate FiO2 11/17/18 13:30 84 20 80/44 (56) 94 Nasal Cannula 4.0 11/17/18 12:15 100.3 Laboratory Data Labs 24H Laboratory Tests 2 11/17/18 10:41: Immature Granulocyte % (Auto) 0.7, White Blood Count 13.6H, Red Blood Count 3.48L, Hemoglobin 10.1L, Hematocrit 32.8L, Mean Corpuscular Volume 94.3, Mean Corpuscular Hemoglobin 29.0, Mean Corpuscular Hemoglobin Concent 30.8L, Red Cell Distribution Width 17.3H, Platelet Count 212, Neutrophils (%) (Auto) 82.8H, Lymp hocytes (%) (Auto) 7.1L, Monocytes (%) (Auto) 7.4H, Eosinophils (%) (Auto) 1.8, Basophils (%) (Auto) 0.2, Neutrophils # (Auto) 11.3H, Lymphocytes # (Auto) 1.0L, Monocytes # (Auto) 1.0H, Eosinophils # (Auto) 0.2, Basophils # (Auto) 0.0, Nucleated Red Blood Cells % (auto) 0.0, Anion Gap 10, Glomerular Filtration Rate 28.3L, Lactic Acid Level 1.7, Blood Urea Nitrogen 45H, Creatinine 2.41H, Sodium Level 136, Potassium Level 4.2, Chloride Level 98, Carbon Dioxide Level 28, Calcium Level 8.2L, Total Creatine Kinase 20L, Creatine Kinase MB 2.0, Creatine Kinase MB Relative Index 7.50H, Troponin I < 0.02 CBC/BMP Laboratory Tests 11/17/18 10:41 Red Blood Count 3.48 L, Mean Corpuscular Volume 94.3, Mean Corpuscular Hemoglobin 29.0, Mean Corpuscular Hemoglobin Concent 30.8 L, Red Cell Distribution Width 17.3 H, Neutrophils (%) (Auto) 82.8 H, Lymphocytes (%) (Auto) 7.1 L, Monocytes (%) (Auto) 7.4 H, Eosinophils (%) (Auto) 1.8, Basophils (%) (Auto) 0.2, Neutrophils # (Auto) 11.3 H, Lymphocytes # (Auto) 1.0 L, Monocytes # (Auto) 1.0 H, Eosinophils # (Auto) 0.2, Basophils # (Auto) 0.0, Calcium Level 8.2 L, Total Creatine Kinase 20 L Microbiology Microbiology 11/17/18 Blood Culture, Received Pending 11/17/18 Blood Culture, Received Pending Home Medications Scheduled Acarbose (Acarbose) 25 Mg Tab, 25 MG PO AC Aspirin (Aspirin EC) 81 Mg Tablet.dr, 81 MG PO DAILY Atorvastatin Calcium (Atorvastatin Calcium) 40 Mg Tablet, 20 MG PO QHS Calcium Carbonate/Vitamin D3 (Calcium 600-Vit D3 400 Tablet) 1 Each Tablet, 1 TAB PO BID Cyanocobalamin (Vitamin B-12) (Vitamin B-12) 1,000 Mcg Tab, 1,000 MCG PO DAILY Epoetin Carson (Procrit) 20,000 Unit/Ml Inj, 20,000 UNIT SC Q2WK Ergocalciferol (Vitamin D2) (Vitamin D2) 50,000 Unit Cap, 50,000 UNIT PO QWEEK WEDNESDAYS Febuxostat (Uloric) 80 Mg Tab, 80 MG PO DAILY Ferrous Gluconate (Ferrous Gluconate) 324 Mg Tab, 324 MG PO BIDWM Fluoxetine Hcl (Fluoxetine HCl) 20 Mg Cap, 80 MG PO DAILY TAKES AT 1200 Gabapentin (Gabapentin) 600 Mg Tablet, 600 MG PO TID L.acidoph/L.bulg/B.bif/S.therm (Bacid Caplet) 1 Tab Tab, 1 TAB PO DAILY Magnesium Chloride (Slow-Mag) 1 Tab Tab, 1 TAB PO DAILY TAKES AT 1200 Metoprolol Succinate (Metoprolol Succinate) 50 Mg Tab.er.24h, 50 MG PO DAILY Mirtazapine (Remeron) 30 Mg Tab, 30 MG PO QHS Multivitamins (Thera M Plus Tablet) 1 Tab Tab, 1 TAB PO DAILY Omeprazole (Omeprazole) 20 Mg Tablet.dr, 40 MG PO BID Oxybutynin Chloride (Oxybutynin Chloride ER) 15 Mg Tab, 15 MG PO DAILY Ranitidine HCl (Ranitidine HCl) 150 Mg Tab, 1 TAB PO BID Sacubitril/Valsartan (Entresto 24 mg-26 mg Tablet) 1 Each Tablet, 1 TAB PO QHS Spironolactone (Spironolactone) 25 Mg Tablet, 25 MG PO DAILY Tamsulosin HCl (Flomax) 0.4 Mg Cap, 0.4 MG PO QPM Torsemide (Torsemide) 10 Mg Tablet, 40 MG PO DAILY Warfarin Sodium (Warfarin Sodium) 2 Mg Tab, 2 MG PO 1XWK QPM: THURSDAY Warfarin Sodium (Warfarin Sodium) 2 Mg Tablet, 3 MG PO 6XWK QPM: SUN, , WED, TH, FRI, SAT Scheduled PRN Albuterol Sulf (Albuterol Sulfate) 2.5 Mg/3 Ml Nebu, 2.5 MG INH Q4H PRN for SHORTNESS OF BREATH Albuterol Sulfate (Proair Hfa) 108 Mcg/Act Aer, 1 PUFF INH Q4H PRN for SHORTNESS OF BREATH Hydrocodone/Acetaminophen (Hydrocodone-Acetamin 10-325 mg) 1 Tab Tab, 2 TAB PO TID PRN for PAIN Nitroglycerin (Nitrostat) 0.4 Mg Subl, 0.4 MG SL NITRO PRN for CHEST PAIN Polyvinyl Alcohol (Artificial Tears) 1.4 % Joyce, 1 DROP OU BID PRN for DRY EYES Trazodone HCl (Trazodone HCl) 50 Mg Tab, 50 MG PO QHS PRN for SLEEP Zolpidem Tartrate (Ambien) 5 Mg Tab, 5 MG PO QHS PRN for SLEEP Allergies Coded Allergies: allopurinol (Verified Adverse Reaction, Mild, itching, 11/17/18) A-FIB/CHADSVASC A-FIB History Current/History of A-Fib/PAF?: Yes Current PO Anticoag Therapy: Yes BRENDON JONES MD November 17, 2018 14:30
[2018-11-17] MEDS ORDERED: NS 500 ML IV ONE (14:45)
[2018-11-17 14:50] LABS: INR 3.18; PROTHROMBIN TIME 33.3 SECONDS (12.1-14.4)
[2018-11-17] MEDS ORDERED: SODIUM CHLORIDE 0.9% 1000ML IV ONE (15:30)
[2018-11-17] MEDS ORDERED: PIPERACILLIN/TAZOBACTAM SOD 4.5 GM in D5W MINI-BAG PLUS 50 ML IV SCH (15:30)
[2018-11-17] MEDS: GABAPENTIN 300 MG CAP PO SCH ×2 (16:00→20:20)
[2018-11-17 16:09] LABS: ABG BASE EXCESS -0.9 (-2.0-2.0); ABG HCO3 24.5 MEQ/L (22.0-26.0); ABG O2 SATURATION 96.4 % (95.0-99.0); ABG PARTIAL PRESSURE CO2 43.9 mmHg (35.0-45.0); ABG PARTIAL PRESSURE O2 88.7 mmHg (75.0-100.0); ABG STANDARD HCO3 23.7 MEQ/L (22.0-26.0); ABG TOTAL CO2 25.8 MEQ/L (23.0-31.0); ABG pH (ARTERIAL) 7.364 UNITS (7.350-7.450)
[2018-11-17 16:19] LABS: MB/CK RELATIVE INDEX 5.24 (< OR =4); TROPONIN I 0.02 NG/ML (< 0.10)
[2018-11-17] MEDS ORDERED: HYDROCORTISONE 100 MG/2 ML VIAL (J1720) As Ordered ONE (16:28)
[2018-11-17] MEDS ORDERED: WARFARIN SOD 3 MG TAB PO SCH (17:00)
[2018-11-17] MEDS: HYDROCORTISONE 100 MG/2 ML VIAL (J1720) IV SCH ×2 (17:27→22:43)
[2018-11-17] MEDS ORDERED: LIDOCAINE 1% MDV 20ML VIAL As Ordered ONE (17:44)
[2018-11-17] MEDS: FERROUS GLUCONATE 324 MG TAB PO SCH (18:00)
[2018-11-17] MEDS: PIPERACILLIN/TAZOBACTAM SOD 3.375 GM in D5W MINI-BAG PLUS 50 ML IV SCH ×2 (18:21→21:12)
--- NOTE | 2018-11-17 18:38 | REP ---
Clinical: Central line placement. Comparison: 11/17/2018 at 10:50 a.m. Findings: Left subclavian catheter with tip in the SVC. Cardiomegaly is appreciated along with chronic interstitial changes and findings to suggest superimposed pulmonary vascular congestion with interstitial edema and scattered basilar infiltrates. No obvious effusion. No pneumothorax. Skeletal structures stable. Impression: 1. Status post left subclavian catheter. No pneumothorax. 2. Findings to suggest chronic changes with superimposed pulmonary vascular congestion and multifocal infiltrates. Electronically Signed by Kemar Mirza MD 11/17/2018 06:30 P
--- NOTE | 2018-11-17 19:00 | PHACANCOPD ---
PHARMACY VANCOMYCIN DOSING Pt Demographics Demographics Patient Age:73 , Weight:110.300 , Gender: male Adjusted Body Weight Date: 11/17/18, Adjusted Body Weight: Kg Events Past 24 Hours Events Past 24 Hours: YES: Elevation in WBC, Pending Diagnostics Vancomycin Vancomycin indication: HAP Vancomycin Target Ranges: 15-20 mcg/ml Vancomycin Load Y/N: No Load Dose Date Time Vancomycin Load Dose: Date: Time: Vancomycin Dose Date: 11/17/18. Current Vancomycin Dose: [1G IV Q24H] Intermittent Dosing?: No Labs Labs Item Value Date Time White Blood Count 13.6 10^3/uL H 11/17/18 1041 Creatinine 2.41 MG/DL H 11/17/18 1041 Blood Urea Nitrogen 45 MG/DL H 11/17/18 1041 Lactic Acid Level 1.7 MMOL/L 11/17/18 1041 Micro Microbiology 11/17/18 Blood Culture, Received Pending 11/17/18 Blood Culture, Received Pending Creatinine Clearance Date:11/17/18. Est Creatinine Clearance: [~26ml/min]. Pending Labs Vancomycin trough level scheduled 11/19/18 @0500 - prior to the 3rd dose Assessment and Plan Maintaining Current Dose?: Yes Reason for dose change: No Dose Change Pharmacist Note Pharmacist Note Date: 11/17/18. Pharmacist note: Day #1 empiric vancomycin therapy initiated with a 2g loading dose, followed by a maintenance regimen of 1g IV Q24H for the treatment HAP - aiming for a goal trough of 15-20mcg/ml. The patient was recently discharged from [facility] 11/12/18 after a two day stay for hyperkalemia and gwen/ckd. WBC and temp are currently elevated. LA is WNL. Procalcitonin and MRSA nasal screen are currently pending. CXR today revealed "bibasilar infiltrates consistent with pneumonia." No documented PMH of MRSA, but the patient does have a hx of vanco use here at [facility] as recent as January 2018. Blood and sputum cultures are pending. A vancomycin trough level has been scheduled to be drawn 11/19/18 @0500 - prior to the 3rd dose to ensure close monitoring. We will continue to monitor and make dose adjustments if needed. [facility] November 17, 2018 19:00
--- NOTE | 2018-11-17 19:48 | ECGEPIP ---
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
[2018-11-17 20:00] VITALS: BP 77/50
[2018-11-17] MEDS ORDERED: VANCOMYCIN HCL 1,000 MG, VIAL MATE ADAPTER 1 EACH in D5W 250 ML IV ONE (20:00)
--- NOTE | 2018-11-17 20:01 | CCN ---
DATE: 11/17/2018 CRITICAL CARE TIME: 1 hour and 10 minutes. This excludes all procedures. I went to see Mr. Angel Frances in the emergency room at the request of Dr. Stanford who is the admitting physician. Mr. Frances was recently discharged 4 days ago for acute kidney injury. He was also felt to have congestive heart failure at the time. He went home with an oxygen saturation of 96% of 4 liters, but an elevated white count. He was seen this morning by a visiting nurse and told that he had hypotension so he presented to the hospital today. He states he has been coughing for approximately 4 days. He had productive mucus. No chest discomfort. No fevers or chills. Denies any headaches or vision changes. I was called urgently to his bedside due to his hypotension. I was getting ready to place a central line, however, there was a near arrest and I left his bedside to attend to that and therefore, I called my colleague, Dr. Chen to place a central line while I was dealing with a different patient. After that I interviewed the patient again and examined the patient. The patient remained hypotensive without any evidence of lactic acidosis. My main concern was that he could have confounding adrenal insufficiency given his recent steroids use. Therefore I have given him hydrocortisone. PHYSICAL EXAMINATION Temperature was 100.9, pulse is 65. Respiratory rate of 18, blood pressure is 103/70 with a mean arterial pressure of 81. Prior to central line, pressure was 80s over 50s with a MAP of 50 systolic. The patient was in Trendelenburg initially, now is sitting upright. Central venous pressure had not been measured as of yet. Oxygen saturations 96% on 4 liters. General: The patient is awake, conversant, appears pale. HEENT: Sclerae clear and anicteric. Pupils equal, react to light. Mucous membranes are moist. Tongue is midline. Neck is supple. No tracheal deviation or mass. Jugular veins are distended bilaterally. Lymph nodes: No cervical, supraclavicular or axillary adenopathy. Cardiac: Distant S1, S2. I do not auscultate any murmur, rub or gallop. There is a few scattered rhonchi at the bases. Less rales than on prior exams. Abdomen: Soft, nontender, nondistended. No discernible hepatosplenomegaly. He has lost quite a bit of weight since my last encounter with him. Extremities: Much less edema than on prior exams. Minimal lower extremity edema. Skin: Pale without rash, jaundice or bruising. Musculoskeletal: Fairly normal muscle tone without unilateral weakness or tremor. Neurologic: No unilateral weakness. LABORATORY: Laboratory evaluation shows a sodium 136, potassium 4.2, chloride 98, bicarb of 28, BUN of 45, creatinine of 2.41, glucose 136, lactate of 1.7, calcium 8.2 and unremarkable troponin times two. White blood cell count is 13.6, which is down from a prior white blood cell count on the , hematocrit is 10.1, platelet count is 212. Arterial blood gas shows a pH of 7.36, pCO2 of 44 and pO2 of 88.7. IMAGING STUDIES Chest x-ray shows bibasilar infiltrates, more consistent with pneumonia. After central line placement, however, there has already been some clearing of infiltrates. There continues to be vascular congestion with cephalization. There is significant cardiomegaly. IMPRESSION 1. A 73-year-old male presenting with hypotension, cough, likely sepsis from pneumonia. He chronically has an elevated central venous pressure and congestive heart failure. However, I believe at this point in time his clinical presentation is that of sepsis. He will need to be closely monitor for volume overload given his history. Because of his prior history of prednisone use I believe adding hydrocortisone IV is reasonable due to possible suspicion of adrenal insufficiency. Currently, there is no evidence of lactic acidosis. Will continue to monitor for urine output. The patient is at risk for respiratory failure. Will check SCVO2 and central venous pressure. 2. History of chronic kidney disease. Renal function is fair in comparison to prior renal dysfunction that he has had. Will continue to monitor urine output and for potential need for dialysis. 3. History of lupus with some concern of probable underlying lupus interstitial lung disease. Given the chest x-ray currently and his recent chest CT, there is no evidence of active lupus at this point in time. Will continue to monitor for lupus pneumonitis. 4. Anemia, chronic anemia. Will continue to monitor for need for transfusion. [facility]
[2018-11-17] MEDS: TAMSULOSIN 0.4 MG CAP PO SCH (20:19)
[2018-11-17] MEDS: ATORVASTATIN 20 MG TAB PO SCH (20:19)
[2018-11-17] MEDS: OMEPRAZOLE 20 MG CAP PO SCH (20:20)
[2018-11-17] MEDS: MIRTAZAPINE 15 MG TAB PO SCH (20:20)
[2018-11-17] MEDS: PERCOCET 5MG/325MG TAB PO PRN (20:27)
[2018-11-17 21:00] VITALS: BP 73/44
[2018-11-17] MEDS ORDERED: ENTRESTO 24-26MG TABLET (SACUBITRIL/VALSARTAN) PO SCH (21:00)
[2018-11-17] MEDS: NOREPINEPHRINE BITARTRATE 8 MG in D5W 492 ML IV SCH (21:11)
[2018-11-17 22:00] VITALS: BP 96/54
[2018-11-17 23:00] VITALS: BP 83/52
[2018-11-18] VITALS (26 sets, daily range): BP systolic 75–139; BP diastolic 51–82
[2018-11-18] MEDS: PIPERACILLIN/TAZOBACTAM SOD 3.375 GM in D5W MINI-BAG PLUS 50 ML IV SCH ×4 (04:09→21:17)
[2018-11-18 04:42] LABS: HEMATOCRIT 30.3 % (42.0-52.0); HEMOGLOBIN 9.4 g/dl (13.5-17.5); MEAN CORPUSCULAR HEMOGLOBIN 28.9 pg (27.0-33.0); MEAN CORPUSCULAR VOLUME 93.2 fl (80.0-96.0); PLATELET COUNT, AUTOMATED 188 10^3/uL (150-450); RED BLOOD COUNT 3.25 10^6/uL (4.30-6.10); WHITE BLOOD COUNT 10.8 10^3/uL (4.0-10.0)
[2018-11-18 04:52] LABS: INR 3.15; PROTHROMBIN TIME 33.1 SECONDS (12.1-14.4)
[2018-11-18] MEDS: HYDROCORTISONE 100 MG/2 ML VIAL (J1720) IV SCH ×4 (05:04→22:50)
[2018-11-18 05:35] LABS: CALCIUM LEVEL 7.7 MG/DL (8.8-10.2); CREATININE FOR GFR 2.02 MG/DL (0.70-1.30); GLOMERULAR FILTRATION RATE 34.6 (>42); MAGNESIUM LEVEL 1.7 MG/DL (1.8-2.4); POTASSIUM SERUM 4.1 MEQ/L (3.5-5.1)
[2018-11-18] MEDS ORDERED: VANCOMYCIN HCL 1,000 MG, VIAL MATE ADAPTER 1 EACH in D5W 250 ML IV ONE (06:00)
[2018-11-18] MEDS: PERCOCET 5MG/325MG TAB PO PRN ×3 (06:19→20:02)
[2018-11-18] MEDS ORDERED: MAG SULF 1GM/100ML (MAG RUN) 1 GM in APPROPRIATE DILUENT 1 EA IV ONE (08:00)
--- NOTE | 2018-11-18 08:22 | IPNPDOC ---
Text Note Date of Service The patient was seen on 11/18/18. NOTE Subjective: Patient seen and examined at bedside. No acute overnight events reported. Requiring minimal presser support. He states he is feeling much better today. Still has cough, and was able to provide a sputum sample overnight. Objective: PHYSICAL EXAMINATION: VITAL SIGNS: See below GENERAL APPEARANCE: pale, NAD, sitting comfortably in chair eating breakfast HEENT: NC/AT, EOMI, PERRL CARDIOVASCULAR: +S1S2 LUNGS: scattered rhonchi ABDOMEN: soft, obese, NT, +BS Ext: trace peripheral edema LABORATORY DATA: See below. MICROBIOLOGY: Please see below. ASSESSMENT: 73 yo male recently discharged 11/12/18 returns for lethargy, weakness, shortness of breath and cough, found to be hypotensive likely secondary to pneumonia. #septic shock - secondary to HCAP - SCx pending - zosyn/vanco renal dosing - day #2 - stress dose steroids - d/w technical designer - assistance greatly appreciated - requiring some presser support #likely adrenal insufficiency - stress dose steroids # HFpEF - grossly compensated #chronic hypoxic respiratory failure #afib - on coumadin - supratherapeutic - hold coumadin today - daily INR #CKDIII/lupus nephritis - was previously on dialysis #gout #BPH #lupus #DLP - statin therapy #DVT prophylaxis - as above INR supra-therapeutic VS,Fishbone, I+O VS, Fishbone, I+O Laboratory Tests 11/17/18 10:41 Red Blood Count 3.48 L, Mean Corpuscular Volume 94.3, Mean Corpuscular Hemoglobin 29.0, Mean Corpuscular Hemoglobin Concent 30.8 L, Red Cell Distribution Width 17.3 H, Neutrophils (%) (Auto) 82.8 H, Lymphocytes (%) (Auto) 7.1 L, Monocytes (%) (Auto) 7.4 H, Eosinophils (%) (Auto) 1.8, Basophils (%) (Auto) 0.2, Neutrophils # (Auto) 11.3 H, Lymphocytes # (Auto) 1.0 L, Monocytes # (Auto) 1.0 H, Eosinophils # (Auto) 0.2, Basophils # (Auto) 0.0, Calcium Level 8.2 L, Total Creatine Kinase 20 L 11/18/18 04:30 Red Blood Count 3.25 L, Mean Corpuscular Volume 93.2, Mean Corpuscular Hemoglobin 28.9, Mean Corpuscular Hemoglobin Concent 31.0 L, Red Cell Distribution Width 17.0 H, Calcium Level 7.7 L Vital Signs Date Time Temp Pulse Resp B/P (MAP) Pulse Ox O2 Delivery O2 Flow Rate FiO2 11/18/18 06:49 18 11/18/18 06:00 53 116/81 (93) 98 2.0 11/18/18 04:00 97.0 11/17/18 19:50 Nasal Cannula I&O- Last 24 Hours up to 6 AM 11/18/18 06:00 Intake Total 1865 ml Output Total 2900 ml Balance -1035 ml BRENDON JONES MD November 18, 2018 08:22
[2018-11-18] MEDS: OMEPRAZOLE 20 MG CAP PO SCH ×2 (08:34→20:03)
[2018-11-18] MEDS: MULTIVITAMINS/MINERALS THERAP 1 TAB PO SCH (08:34)
[2018-11-18] MEDS: GABAPENTIN 300 MG CAP PO SCH ×3 (08:35→20:03)
[2018-11-18] MEDS: oxyBUTYnin *DITROPAN XL* 5 MG TABCR PO SCH (08:35)
[2018-11-18] MEDS: FERROUS GLUCONATE 324 MG TAB PO SCH ×2 (08:35→17:38)
[2018-11-18] MEDS: CYANOCOBALAMIN 500 MCG TAB PO SCH (08:35)
[2018-11-18] MEDS: ASPIRIN 81 MG ENTERIC TAB PO SCH (08:36)
--- NOTE | 2018-11-18 11:17 | RO ---
DATE OF PROCEDURE: 11/17/2018 PREPROCEDURE DIAGNOSIS: Hypotension, need for vascular access and pressures. POSTPROCEDURE DIAGNOSIS: Hypotension, need for vascular access and pressures. PROCEDURE: Insertion of left subclavian central line. SURGEON: Dr. Jason Chen MANAGER OPERATIONS RESEARCH: ANESTHESIA: The patient seen at the request of Dr. Morales for emergent placement of a central line for hypotension. DESCRIPTION OF PROCEDURE: The patient's left infraclavicular fossa was prepped and draped in the usual sterile fashion. The subclavian vein was found on the first pass and a wire was placed without difficult. The tract was dilated and a triple lumen catheter was placed by Seldinger technique. The ports were aspirated and flushed without difficulty. The catheter was secured to the chest wall with two #3-0 silk sutures. The patient tolerated the procedure well and a chest x-ray is pending.
--- NOTE | 2018-11-18 11:44 | CCN ---
DATE OF SERVICE: 11/18/2018 Mr. Frances was interviewed and examined in the intensive care unit (ICU) this morning. Patient was found to be sitting comfortably in his hospital chair eating breakfast in no acute distress. Patient reports subjective improvement in his overall condition and breathing ability. He does note that he continues to have a cough, which is slightly increased in frequency since his admission. He continues to bring up sputum. Patient denies any headaches, chest pain/pressure. No palpitations. Denies any pleuritic chest pain. No history of subjective or objective fevers or chills. No changes in his vision. Patient's Levophed drip was discontinued this morning and his pressures remain stable in the 120s/80s. He continues on 2 liters of oxygen via nasal cannula and without any difficulty. Patient denies any other acute concerns this morning and is looking forward to returning home as soon as possible. PHYSICAL EXAMINATION: Patient's temperature is 97 degrees Fahrenheit, pulse 53, blood pressure 116/81, respiratory rate 20, saturations are 98% on 2 liters of oxygen. GENERAL: Patient is found to be sitting in his hospital chair, awake, alert in no acute distress. Able to speak in full sentences and answer questions about his medical history appropriately. He is able to actively participate in his care. He does appear his stated age and relatively pale. HEENT: Patient's sclerae are clear. No sign of icterus. Pupils equal and reactive to light. Mucous membranes are moist. His tongue is midline. No tracheal deviation noted. Jugular venous distention (JVD) present although reduced in severity compare to prior examinations. LYMPH NODES: No cervical, supraclavicular, or axillary lymphadenopathy noted on examination. CARDIAC: Patient's rate and rhythm is irregularly irregular, S1 and S2 are audible but distant. No murmur appreciated. LUNGS: Scattered rales bilaterally sparing the upper lobes, more so on the left than the right. No rhonchi appreciated. ABDOMEN: Soft, nontender, nondistended. No discernible masses or hepatosplenomegaly. EXTREMITIES: Trace lower extremity edema, nonpitting. SKIN: Patient's skin is pale. No rash or new/evolving lesions. He does not appear jaundice and no signs of bruising. MUSCULOSKELETAL: Patient does have normal muscle tone. No tremor appreciated. No weakness. NEURO: Patient is alert and oriented times three. No signs of confusion. No aphagia. No facial weakness appreciated. LABORATORY: Hematology: White cell count 10.8, hemoglobin and hematocrit 9.4/30.3, platelet count of 188. Chemistry: Sodium 137, potassium 4.1, chloride 102, carbon dioxide 27, anion gap of 8, BUN/creatinine of 45/2.02. Creatinine demonstrates improvement from yesterday's value of 2.41, calcium remains low at 7.7. Procalcitonin remains pending. Blood gas is within normal limits. Central line venous blood gas (VBG) oxygen sat of 79.1. Microbiology: Blood cultures are pending. Staphylococcus aureus (MRSA) screen also pending, sputum gram stain and culture are pending. IMAGING: Chest x-ray 11/17/2018: Cardiomegaly with vascular congestion noted, bibasilar infiltrates consistent with pneumonia. Chest x-ray also on 11/17/2018 status post left subclavian catheter with no pneumothorax, findings were suggestive of chronic changes and superimposed pulmonary vascular congestion with multifocal infiltrates. IMPRESSION/PLAN: Patient is a 73-year-old white male with a past medical history significant for lupus, lupus nephritis/chronic kidney disease (CKD) stage III, hyperkalemia, hypotension, chronic respiratory failure, diastolic congestive heart failure (CHF), paroxysmal atrial fibrillation who presented to the emergency department on 11/17/2018 with a chief complaint of cough and hypotension, which was thought to be likely secondary from sepsis related to pneumonia. Last evening, given patient's hypotension, he did require placement of a central line and initiation of pressors. Stress dose of hydrocortisone IV was also given. Patent was admitted to the ICU. PLAN: 1. Patient's hypotension: Appears improving at this time, patient is no longer on pressors maintaining a blood pressure of 120s/80s. Will have to continue to monitor throughout the day. If pressures remain stable and within normal limits, the possibility for removal of patient's central line later this evening. 2. Suspected adrenal insufficiency: Patient did receive a dose of stress IV steroids, which in combination with pressures did improve his blood pressure. He will likely require further workup including an a.m. cortisol level to confirm the diagnosis. Continue to monitor at this time as mentioned above. 3. Pneumonia: Patient is currently receiving vancomycin and Zosyn for suspected healthcare associated pneumonia (HANDICAPPED). Staphylococcus aureus (MRSA) screen is pending. Should patient's MRSA screen come back negative, his vancomycin can be discontinued. White count remains low at 10.8. Continue to monitor. 4. Chronic kidney disease: Patient's renal function appears improved today compared to yesterday. Will continue to monitor output. 5. History of Lupus: There was some mention of underlying lupus interstitial lung disease. No evidence found on patient's recent chest x-rays or chest CT performed during his last admission. Continue to monitor for lupus pneumonitis at this time. I, Humberto Morales, agree with the history and physical as outlined above after conducting an independent exam. The resident and I discussed the case in detail as reflected by the assessment and plan. KOJO
[2018-11-18] MEDS ORDERED: GLUCAGON FOR INJ 1 MG VIAL (J1610) SC PRN (12:15)
[2018-11-18] MEDS: FEBUXOSTAT 40 MG TABLET (ULORIC) PO SCH (12:15)
[2018-11-18] MEDS: FLUoxetine 20 MG CAP PO SCH (12:15)
[2018-11-18] MEDS ORDERED: GLUCOSE 4 GM CHEW TABLET PO PRN (12:15)
[2018-11-18] MEDS ORDERED: DEXTROSE 50% 50 ML SYRINGE IV PRN (12:15)
[2018-11-18] MEDS: WARFARIN SOD 3 MG TAB PO SCH (16:32)
[2018-11-18] MEDS: HumaLOG INSULIN (NovoLOG) PER UNIT SC SCH ×2 (17:38→20:34)
[2018-11-18] MEDS: ATORVASTATIN 20 MG TAB PO SCH (20:03)
[2018-11-18] MEDS: TAMSULOSIN 0.4 MG CAP PO SCH (20:03)
[2018-11-18] MEDS: MIRTAZAPINE 15 MG TAB PO SCH (20:03)
[2018-11-18] MEDS: NOREPINEPHRINE BITARTRATE 8 MG in D5W 492 ML IV SCH (20:35)
[2018-11-19] VITALS (8 sets, daily range): BP systolic 121–147; BP diastolic 61–84
[2018-11-19] MEDS: PIPERACILLIN/TAZOBACTAM SOD 3.375 GM in D5W MINI-BAG PLUS 50 ML IV SCH ×4 (04:17→21:12)
[2018-11-19] MEDS: HYDROCORTISONE 100 MG/2 ML VIAL (J1720) IV SCH ×3 (05:06→17:01)
[2018-11-19 05:13] LABS: HEMATOCRIT 28.4 % (42.0-52.0); HEMOGLOBIN 8.8 g/dl (13.5-17.5); MEAN CORPUSCULAR HEMOGLOBIN 28.9 pg (27.0-33.0); MEAN CORPUSCULAR VOLUME 93.1 fl (80.0-96.0); PLATELET COUNT, AUTOMATED 180 10^3/uL (150-450); RED BLOOD COUNT 3.05 10^6/uL (4.30-6.10); WHITE BLOOD COUNT 8.5 10^3/uL (4.0-10.0)
[2018-11-19 05:23] LABS: INR 3.74; PROTHROMBIN TIME 37.9 SECONDS (12.1-14.4)
[2018-11-19 05:44] LABS: CALCIUM LEVEL 8.5 MG/DL (8.8-10.2); CREATININE FOR GFR 1.68 MG/DL (0.70-1.30); GLOMERULAR FILTRATION RATE 42.9 (>42); POTASSIUM SERUM 3.5 MEQ/L (3.5-5.1); VANCOMYCIN LEVEL TROUGH 10.5 UG/ML (10.0-20.0)
[2018-11-19] MEDS ORDERED: VANCOMYCIN HCL 1,000 MG, VIAL MATE ADAPTER 1 EACH in D5W 250 ML IV SCH ×2 (06:00→18:00)
[2018-11-19] MEDS: PERCOCET 5MG/325MG TAB PO PRN ×3 (06:03→21:14)
--- NOTE | 2018-11-19 06:23 | PHACANCOPD ---
PHARMACY VANCOMYCIN DOSING Pt Demographics Demographics Patient Age:73 , Weight:110.200 , Gender: male Adjusted Body Weight Date: 11/17/18, Adjusted Body Weight: Kg Vancomycin Vancomycin indication: HAP Vancomycin Target Ranges: 15-20 mcg/ml Vancomycin Load Y/N: No Load Dose Date Time Vancomycin Load Dose: Date: Time: Vancomycin Dose Date: 11/19/18. Current Vancomycin Dose: [1 GM iv q18h] Date: 11/17/18. Current Vancomycin Dose: [1G IV Q24H] Intermittent Dosing?: No Labs Micro Microbiology 11/17/18 Blood Culture - Preliminary, Resulted No growth after 24 hours . All specim... 11/17/18 Blood Culture - Preliminary, Resulted No growth after 24 hours . All specim... 11/18/18 Gram Stain - Final, Resulted 11/18/18 Sputum Culture, Resulted Pending 11/17/18 MRSA Screen, Received Pending 11/17/18 Respiratory Virus Panel (PCR) (DANNY) - Final, Complete Creatinine Clearance Date:11/17/18. Est Creatinine Clearance: [~26ml/min]. Pending Labs Vancomycin trough level scheduled 11/19/18 @0500 - prior to the 3rd dose Assessment and Plan Maintaining Current Dose?: No Reason for dose change: Trough too low Pharmacist Note Pharmacist Note Date: 11/19/18. Pharmacist note:Vancomycin trough drawn this morning@5:00 reported as 10.5(goal= 15-20)(HAP).SCR=1.68,Will change to Vancomycin 1 gram IV Q18 hours to begin with a 11/19 1800 dose- Date: 11/17/18. Pharmacist note: Day #1 empiric vancomycin therapy initiated with a 2g loading dose, followed by a maintenance regimen of 1g IV Q24H for the treatment HAP - aiming for a goal trough of 15-20mcg/ml. The patient was recently discharged from [facility] 11/12/18 after a two day stay for hyperkalemia and gwen/ckd. WBC and temp are currently elevated. LA is WNL. Procalcitonin and MRSA nasal screen are currently pending. CXR today revealed "bibasilar infiltrates consistent with pneumonia." No documented PMH of MRSA, but the patient does have a hx of vanco use here at [facility] as recent as January 2018. Blood and sputum cultures are pending. A vancomycin trough level has been scheduled to be drawn 11/19/18 @0500 - prior to the 3rd dose to ensure close monitoring. We will continue to monitor and make dose adjustments if needed. YASMIN SANTO PHARMACY November 19, 2018 06:23
[2018-11-19 07:10] LABS: MAGNESIUM LEVEL 2.4 MG/DL (1.8-2.4)
--- NOTE | 2018-11-19 07:42 | ECHO ---
DATE OF STUDY: 11/18/2018 REFERRING PHYSICIAN: Dr. Stanford INDICATION: Congestive heart failure. Height 173 cm. Weight 111 kg. MEASUREMENTS: IVS: 1.3 LV: 5.0 LVPW: 1.3 LA: 4.7 Aorta: 3.6 IVC: 2.8 Mitral E wave velocity: 80 E prime septal: 7.4 E prime lateral: 10.6 FINDINGS: This study is of rather limited technical quality with difficult visualization corresponding to the patient's body habitus. Left ventricle is of normal size. There is mild left ventricular hypertrophy and grossly preserved LV systolic function. Based on limited visualization, I certainly cannot rule out subtle wall motion abnormalities. Right ventricle was poorly seen but does not appear grossly enlarged. There is left atrial enlargement. Right atrium was poorly visualized. Aortic valve is sclerotic and there is some restriction of leaflet mobility. By two-dimensional imaging there is only mild aortic stenosis. Mitral, tricuspid and pulmonic valves appear grossly normal. No pericardial effusion is noted. Inferior vena cava is dilated and there is only partial collapse with respiration indicative of high central venous pressure. Aortic root is normal. Aortic arch and abdominal aorta were poorly visualized. Doppler interrogation of the aortic valve reveals peak gradient only 14 and mean gradient 8 mmHg corresponding to fairly trivial aortic stenosis. There is mild to moderate mitral insufficiency. There is mild tricuspid insufficiency. Calculated pulmonary artery pressure is in 40s corresponding to moderate pulmonary hypertension. Evaluation of diastolic function is inconclusive due to underlying atrial fibrillation. CONCLUSIONS: 1. Study is of fair technical quality. 2. Normal LV size with mild LVH and grossly preserved LV systolic function. 3. Mild aortic stenosis. 4. Mild to moderate mitral insufficiency. 5. High central venous pressure. 6. At least moderate pulmonary hypertension. 7. Right-sided heart chambers and valves were poorly seen. COMMENTS: Subacute bacterial endocarditis (SBE) prophylaxis is not recommended.
[2018-11-19] MEDS: GABAPENTIN 300 MG CAP PO SCH ×3 (08:33→21:13)
[2018-11-19] MEDS: ASPIRIN 81 MG ENTERIC TAB PO SCH (08:33)
[2018-11-19] MEDS: OMEPRAZOLE 20 MG CAP PO SCH ×2 (08:33→21:13)
[2018-11-19] MEDS: CYANOCOBALAMIN 500 MCG TAB PO SCH (08:33)
[2018-11-19] MEDS: MULTIVITAMINS/MINERALS THERAP 1 TAB PO SCH (08:33)
[2018-11-19] MEDS: oxyBUTYnin *DITROPAN XL* 5 MG TABCR PO SCH (08:34)
[2018-11-19] MEDS: HumaLOG INSULIN (NovoLOG) PER UNIT SC SCH ×4 (08:34→20:36)
[2018-11-19] MEDS: FERROUS GLUCONATE 324 MG TAB PO SCH ×2 (08:34→17:23)
[2018-11-19] MEDS: FEBUXOSTAT 40 MG TABLET (ULORIC) PO SCH (09:00)
--- NOTE | 2018-11-19 09:05 | IPNPDOC ---
Text Note Date of Service The patient was seen on 11/19/18. NOTE Subjective: Patient seen and examined at bedside. No acute overnight events reported. Weaned off pressers, oxygen weaned to 2L. He states he is feeling well this morning. Cough also has improved. Objective: PHYSICAL EXAMINATION: VITAL SIGNS: See below GENERAL APPEARANCE: pale, NAD, sitting comfortably in chair eating breakfast, family at bedside HEENT: NC/AT, EOMI, PERRL CARDIOVASCULAR: +S1S2 LUNGS: scattered rhonchi ABDOMEN: soft, obese, NT, +BS Ext: trace peripheral edema LABORATORY DATA: See below. MICROBIOLOGY: Please see below. ASSESSMENT: 73 yo male recently discharged 11/12/18 returns for lethargy, weakness, shortness of breath and cough, found to be hypotensive, secondary to pneumonia. #septic shock - secondary to HCAP - SCx pending - zosyn/vanco renal dosing - day #3 - stress dose steroids - d/w artifacts conservator - assistance greatly appreciated - MRSA screen pending #likely adrenal insufficiency - stress dose steroids # HFpEF - grossly compensated #chronic hypoxic respiratory failure #afib - on coumadin - supratherapeutic - hold coumadin today - daily INR #CKDIII/lupus nephritis - was previously on dialysis #gout #BPH #lupus #DLP - statin therapy #DVT prophylaxis - as above INR supra-therapeutic VS,Fishbone, I+O VS, Fishbone, I+O Laboratory Tests 11/19/18 05:00 Red Blood Count 3.05 L, Mean Corpuscular Volume 93.1, Mean Corpuscular Hemoglobin 28.9, Mean Corpuscular Hemoglobin Concent 31.0 L, Red Cell Distribution Width 17.0 H, Calcium Level 8.5 L Vital Signs Date Time Temp Pulse Resp B/P (MAP) Pulse Ox O2 Delivery O2 Flow Rate FiO2 11/19/18 07:57 97.0 67 16 133/73 (93) 97 2.0 11/17/18 19:50 Nasal Cannula I&O- Last 24 Hours up to 6 AM 11/19/18 06:00 Intake Total 2830 ml Output Total 2310 ml Balance 520 ml BRENDON JONES MD November 19, 2018 09:05
[2018-11-19] MEDS ORDERED: SLF 3 ML SYR IV PRN (11:45)
[2018-11-19] MEDS: FLUoxetine 20 MG CAP PO SCH (12:44)
[2018-11-19] MEDS: SLF 3 ML SYR IV SCH ×2 (12:45→21:14)
[2018-11-19] MEDS: MIRTAZAPINE 15 MG TAB PO SCH (21:13)
[2018-11-19] MEDS: ATORVASTATIN 20 MG TAB PO SCH (21:14)
[2018-11-19] MEDS: TAMSULOSIN 0.4 MG CAP PO SCH (21:14)
[2018-11-20] MEDS: HYDROCORTISONE 100 MG/2 ML VIAL (J1720) IV SCH ×5 (00:32→23:46)
[2018-11-20 04:00] VITALS: BP 145/84
[2018-11-20] MEDS: PERCOCET 5MG/325MG TAB PO PRN ×3 (04:29→17:44)
[2018-11-20] MEDS: PIPERACILLIN/TAZOBACTAM SOD 3.375 GM in D5W MINI-BAG PLUS 50 ML IV SCH (04:30)
[2018-11-20] MEDS: SLF 3 ML SYR IV SCH ×3 (05:40→20:58)
[2018-11-20 06:15] LABS: HEMATOCRIT 28.4 % (42.0-52.0); HEMOGLOBIN 8.8 g/dl (13.5-17.5); MEAN CORPUSCULAR HEMOGLOBIN 27.9 pg (27.0-33.0); MEAN CORPUSCULAR VOLUME 90.2 fl (80.0-96.0); PLATELET COUNT, AUTOMATED 193 10^3/uL (150-450); RED BLOOD COUNT 3.15 10^6/uL (4.30-6.10); WHITE BLOOD COUNT 9.5 10^3/uL (4.0-10.0)
[2018-11-20 06:35] LABS: INR 3.49; PROTHROMBIN TIME 35.9 SECONDS (12.1-14.4)
[2018-11-20 06:40] LABS: CALCIUM LEVEL 8.2 MG/DL (8.8-10.2); CREATININE FOR GFR 1.48 MG/DL (0.70-1.30); GLOMERULAR FILTRATION RATE 49.6 (>42); POTASSIUM SERUM 3.7 MEQ/L (3.5-5.1)
[2018-11-20 08:00] VITALS: BP 153/85
[2018-11-20] MEDS: HumaLOG INSULIN (NovoLOG) PER UNIT SC SCH ×4 (08:00→20:54)
[2018-11-20] MEDS ORDERED: POTASSIUM CHLORIDE 10 MEQ SR TABLET PO ONE (08:45)
--- NOTE | 2018-11-20 08:45 | IPNPDOC ---
Text Note Date of Service The patient was seen on 11/20/18. NOTE Subjective: Patient seen and examined at bedside. No new medical complaints this morning. He notes chronic back pain. He did have VT noted on tele, and was asymptomatic. Objective: PHYSICAL EXAMINATION: VITAL SIGNS: See below GENERAL APPEARANCE: pale, NAD, sitting comfortably in chair HEENT: NC/AT, EOMI, PERRL CARDIOVASCULAR: +S1S2 LUNGS: scattered rhonchi ABDOMEN: soft, obese, NT, +BS Ext: trace peripheral edema LABORATORY DATA: See below. MICROBIOLOGY: Please see below. ASSESSMENT: 73 yo male recently discharged 11/12/18 returns for lethargy, weakness, shortness of breath and cough, found to be hypotensive, secondary to pneumonia. #septic shock - secondary to HCAP - SCx noted - zosyn renal dosing - day #4 - transition to ceftriaxone - stress dose steroids - wean - d/w toll transmission worker - assistance greatly appreciated - MRSA screen negative #likely adrenal insufficiency - stress dose steroids - weaning # HFpEF - grossly compensated #chronic hypoxic respiratory failure #afib - on coumadin - supratherapeutic - hold coumadin today - daily INR #CKDIII/lupus nephritis - was previously on dialysis #gout #BPH #lupus #DLP - statin therapy #DVT prophylaxis - as above INR supra-therapeutic VS,Fishbone, I+O VS, Fishbone, I+O Laboratory Tests 11/20/18 05:54 Red Blood Count 3.15 L, Mean Corpuscular Volume 90.2, Mean Corpuscular Hemoglobin 27.9, Mean Corpuscular Hemoglobin Concent 31.0 L, Red Cell Distribution Width 17.0 H, Calcium Level 8.2 L Vital Signs Date Time Temp Pulse Resp B/P (MAP) Pulse Ox O2 Delivery O2 Flow Rate FiO2 11/20/18 08:00 97.2 62 18 153/85 (107) 98 2.0 11/17/18 19:50 Nasal Cannula I&O- Last 24 Hours up to 6 AM 11/20/18 06:00 Intake Total 1300 ml Output Total 1600 ml Balance -300 ml BRENDON JONES MD Nov 20, 2018 08:45
[2018-11-20] MEDS ORDERED: PERCOCET 5MG/325MG TAB PO PRN ×2 (09:00→09:16)
[2018-11-20] MEDS ORDERED: oxyCODONE 5MG TAB PO PRN ×2 (09:15→09:16)
[2018-11-20] MEDS: FERROUS GLUCONATE 324 MG TAB PO SCH ×2 (09:29→17:43)
[2018-11-20] MEDS: CYANOCOBALAMIN 500 MCG TAB PO SCH (09:30)
[2018-11-20] MEDS: FEBUXOSTAT 40 MG TABLET (ULORIC) PO SCH (09:30)
[2018-11-20] MEDS: TORSEMIDE 20 MG TAB PO SCH (09:30)
[2018-11-20] MEDS: cefTRIAXone SOD 1 GM in D5W MINI-BAG PLUS 50 ML IV SCH (09:30)
[2018-11-20] MEDS: oxyBUTYnin *DITROPAN XL* 5 MG TABCR PO SCH (09:30)
[2018-11-20] MEDS: GABAPENTIN 300 MG CAP PO SCH ×3 (09:30→20:58)
[2018-11-20] MEDS: MULTIVITAMINS/MINERALS THERAP 1 TAB PO SCH (09:31)
[2018-11-20] MEDS: ASPIRIN 81 MG ENTERIC TAB PO SCH (09:31)
[2018-11-20] MEDS: OMEPRAZOLE 20 MG CAP PO SCH ×2 (09:31→20:58)
[2018-11-20 09:52] LABS: MAGNESIUM LEVEL 2.1 MG/DL (1.8-2.4)
[2018-11-20] MEDS: oxyCODONE 5MG TAB PO PRN ×2 (10:30→17:44)
[2018-11-20 12:00] VITALS: BP 155/79
[2018-11-20] MEDS: FLUoxetine 20 MG CAP PO SCH (13:23)
[2018-11-20 16:00] VITALS: BP 113/70
[2018-11-20 20:00] VITALS: BP 123/74
[2018-11-20] MEDS: MIRTAZAPINE 15 MG TAB PO SCH (20:58)
[2018-11-20] MEDS: TAMSULOSIN 0.4 MG CAP PO SCH (20:58)
[2018-11-20] MEDS: ATORVASTATIN 20 MG TAB PO SCH (20:58)
[2018-11-20 23:59] VITALS: BP 143/84
[2018-11-21 04:00] VITALS: BP 145/84
[2018-11-21 04:58] LABS: HEMATOCRIT 27.6 % (42.0-52.0); HEMOGLOBIN 8.6 g/dl (13.5-17.5); MEAN CORPUSCULAR HEMOGLOBIN 28.1 pg (27.0-33.0); MEAN CORPUSCULAR HGB CONC 31.2 g/dl (32.0-36.5); MEAN CORPUSCULAR VOLUME 90.2 fl (80.0-96.0); PLATELET COUNT, AUTOMATED 200 10^3/uL (150-450); RED BLOOD COUNT 3.06 10^6/uL (4.30-6.10); WHITE BLOOD COUNT 9.8 10^3/uL (4.0-10.0)
[2018-11-21 05:10] LABS: INR 2.81; PROTHROMBIN TIME 30.2 SECONDS (12.1-14.4)
[2018-11-21 05:12] LABS: CALCIUM LEVEL 8.5 MG/DL (8.8-10.2); CREATININE FOR GFR 1.33 MG/DL (0.70-1.30); GLOMERULAR FILTRATION RATE 56.1 (>42); POTASSIUM SERUM 3.8 MEQ/L (3.5-5.1)
[2018-11-21] MEDS: SLF 3 ML SYR IV SCH ×3 (05:22→20:56)
[2018-11-21] MEDS: HYDROCORTISONE 100 MG/2 ML VIAL (J1720) IV SCH ×3 (05:22→20:55)
[2018-11-21] MEDS: oxyCODONE 5MG TAB PO PRN ×2 (06:28→18:46)
[2018-11-21] MEDS: PERCOCET 5MG/325MG TAB PO PRN ×2 (06:28→18:46)
[2018-11-21 08:00] VITALS: BP 168/89
--- NOTE | 2018-11-21 08:35 | IPNPDOC ---
Text Note Date of Service The patient was seen on 11/21/18. NOTE Subjective: Patient seen and examined at bedside. No new medical complaints this morning. Anxious to return home. Objective: PHYSICAL EXAMINATION: VITAL SIGNS: See below GENERAL APPEARANCE: pale, NAD, sitting comfortably in chair HEENT: NC/AT, EOMI CARDIOVASCULAR: +S1S2 LUNGS: CTA B/L ABDOMEN: soft, obese, NT, +BS Ext: trace peripheral edema LABORATORY DATA: See below. MICROBIOLOGY: Please see below. ASSESSMENT: 73 yo male recently discharged 11/12/18 returns for lethargy, weakness, shortness of breath and cough, found to be hypotensive, secondary to pneumonia. #septic shock - secondary to HCAP - SCx noted - day #5 of abx - started zosyn renal dosing - transitioned to ceftriaxone - stress dose steroids - continue to wean - MRSA screen negative #likely adrenal insufficiency - stress dose steroids - weaning # HFpEF - grossly compensated #chronic hypoxic respiratory failure #afib - on coumadin - therapeutic - resume coumadin today - daily INR #CKDIII/lupus nephritis - was previously on dialysis #gout #BPH #lupus #DLP - statin therapy #DVT prophylaxis - as above therapeutic on coumadin Dispo: continue IV abx, wean IV steroids to prednisone, PT, continue telemetry VS,Fishbone, I+O VS, Fishbone, I+O Laboratory Tests 11/21/18 04:13 Red Blood Count 3.06 L, Mean Corpuscular Volume 90.2, Mean Corpuscular Hemo globin 28.1, Mean Corpuscular Hemoglobin Concent 31.2 L, Red Cell Distribution Width 17.2 H, Calcium Level 8.5 L Vital Signs Date Time Temp Pulse Resp B/P (MAP) Pulse Ox O2 Delivery O2 Flow Rate FiO2 11/21/18 06:58 18 2.0 11/21/18 04:00 98.7 64 145/84 (104) 98 11/17/18 19:50 Nasal Cannula I&O- Last 24 Hours up to 6 AM 11/21/18 06:00 Intake Total 740 ml Output Total 2025 ml Balance -1285 ml BRENDON JONES MD Nov 21, 2018 08:35
[2018-11-21] MEDS ORDERED: POTASSIUM CHLORIDE 10 MEQ SR TABLET PO ONE (08:45)
[2018-11-21] MEDS: HumaLOG INSULIN (NovoLOG) PER UNIT SC SCH ×4 (09:15→20:56)
[2018-11-21] MEDS: cefTRIAXone SOD 1 GM in D5W MINI-BAG PLUS 50 ML IV SCH (09:21)
[2018-11-21] MEDS: FERROUS GLUCONATE 324 MG TAB PO SCH ×2 (09:22→17:47)
[2018-11-21] MEDS: CYANOCOBALAMIN 500 MCG TAB PO SCH (09:23)
[2018-11-21] MEDS: FEBUXOSTAT 40 MG TABLET (ULORIC) PO SCH (09:23)
[2018-11-21] MEDS: MULTIVITAMINS/MINERALS THERAP 1 TAB PO SCH (09:23)
[2018-11-21] MEDS: oxyBUTYnin *DITROPAN XL* 5 MG TABCR PO SCH (09:23)
[2018-11-21] MEDS: TORSEMIDE 20 MG TAB PO SCH (09:24)
[2018-11-21] MEDS: OMEPRAZOLE 20 MG CAP PO SCH ×2 (09:24→20:55)
[2018-11-21] MEDS: ASPIRIN 81 MG ENTERIC TAB PO SCH (09:24)
[2018-11-21] MEDS: GABAPENTIN 300 MG CAP PO SCH ×3 (09:24→20:55)
[2018-11-21 12:00] VITALS: BP 154/84
[2018-11-21] MEDS: FLUoxetine 20 MG CAP PO SCH (13:09)
--- NOTE | 2018-11-21 13:14 | ECGEPIP ---
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
[2018-11-21 16:00] VITALS: BP 148/77
[2018-11-21] MEDS: WARFARIN SOD 3 MG TAB PO SCH (17:47)
[2018-11-21 20:00] VITALS: BP 126/78
[2018-11-21] MEDS: ATORVASTATIN 20 MG TAB PO SCH (20:55)
[2018-11-21] MEDS: TAMSULOSIN 0.4 MG CAP PO SCH (20:55)
[2018-11-21] MEDS: MIRTAZAPINE 15 MG TAB PO SCH (20:56)
[2018-11-21 23:59] VITALS: BP 139/78
[2018-11-22 04:00] VITALS: BP 133/81
[2018-11-22] MEDS: HYDROCORTISONE 100 MG/2 ML VIAL (J1720) IV SCH ×2 (04:22→17:02)
[2018-11-22] MEDS: SLF 3 ML SYR IV SCH ×3 (05:01→22:02)
[2018-11-22 05:36] LABS: HEMATOCRIT 29.8 % (42.0-52.0); HEMOGLOBIN 9.2 g/dl (13.5-17.5); MEAN CORPUSCULAR HEMOGLOBIN 28.9 pg (27.0-33.0); MEAN CORPUSCULAR HGB CONC 30.9 g/dl (32.0-36.5); MEAN CORPUSCULAR VOLUME 93.7 fl (80.0-96.0); PLATELET COUNT, AUTOMATED 188 10^3/uL (150-450); RED BLOOD COUNT 3.18 10^6/uL (4.30-6.10)
[2018-11-22 05:49] LABS: BLOOD UREA NITROGEN 34 MG/DL (7-18); CALCIUM LEVEL 8.3 MG/DL (8.8-10.2); CARBON DIOXIDE LEVEL 28 MEQ/L (21-32); CHLORIDE LEVEL 107 MEQ/L (98-107); CREATININE FOR GFR 1.17 MG/DL (0.70-1.30); GLOMERULAR FILTRATION RATE > 60.0 (>42); GLUCOSE, FASTING 87 MG/DL (70-100); POTASSIUM SERUM 3.7 MEQ/L (3.5-5.1); SODIUM LEVEL 142 MEQ/L (136-145)
[2018-11-22] MEDS: oxyCODONE 5MG TAB PO PRN ×3 (05:50→19:30)
[2018-11-22] MEDS: PERCOCET 5MG/325MG TAB PO PRN ×3 (05:51→19:29)
[2018-11-22 05:53] LABS: INR 1.96; PROTHROMBIN TIME 22.7 SECONDS (12.1-14.4)
[2018-11-22] MEDS: HumaLOG INSULIN (NovoLOG) PER UNIT SC SCH ×4 (07:30→21:00)
[2018-11-22 08:00] VITALS: BP 145/81
--- NOTE | 2018-11-22 08:29 | IPNPDOC ---
Text Note Date of Service The patient was seen on 11/22/18. NOTE Subjective: Patient seen and examined at bedside. No new medical complaints this morning. Anxious to return home. Objective: PHYSICAL EXAMINATION: VITAL SIGNS: See below GENERAL APPEARANCE: pale, NAD, sitting comfortably in chair HEENT: NC/AT, EOMI CARDIOVASCULAR: +S1S2, systolic murmur LUNGS: CTA B/L ABDOMEN: soft, obese, NT, +BS Ext: trace peripheral edema LABORATORY DATA: See below. MICROBIOLOGY: Please see below. ASSESSMENT: 73 yo male recently discharged 11/12/18 returns for lethargy, weakness, shortness of breath and cough, found to be hypotensive, secondary to pneumonia. #septic shock - secondary to HCAP - SCx noted - day #6 of abx - started zosyn renal dosing - transitioned to ceftriaxone - stress dose steroids - continue to wean - q12h today - could likely d/c tomorrow - MRSA screen negative #likely adrenal insufficiency - stress dose steroids - weaning # HFpEF - grossly compensated #chronic hypoxic respiratory failure #afib - on coumadin - therapeutic - resume coumadin today - daily INR #CKDIII/lupus nephritis - was previously on dialysis #gout #BPH #lupus #DLP - statin therapy #DVT prophylaxis - as above therapeutic on coumadin Dispo: continue IV abx, wean IV steroids, PT, continue telemetry VS,Taty, I+O VS, Fishbone, I+O Laboratory Tests 11/22/18 04:56 Red Blood Count 3.18 L, Mean Corpuscular Volume 93.7, Mean Corpuscular Hemoglobin 28.9, Mean Corpuscular Hemoglobin Concent 30.9 L, Red Cell Distribution Width 17.3 H, Calcium Level 8.3 L Vital Signs Date Time Temp Pulse Resp B/P (MAP) Pulse Ox O2 Delivery O2 Flow Rate FiO2 11/22/18 06:21 18 2.0 11/22/18 04:00 97.3 67 133/81 (98) 98 11/17/18 19:50 Nasal Cannula I&O- Last 24 Hours up to 6 AM 11/22/18 06:00 Intake Total 1200 ml Output Total 1825 ml Balance -625 ml BRENDON JONES MD Nov 22, 2018 08:29
[2018-11-22] MEDS: TORSEMIDE 20 MG TAB PO SCH (09:48)
[2018-11-22] MEDS: FEBUXOSTAT 40 MG TABLET (ULORIC) PO SCH (09:48)
[2018-11-22] MEDS: ASPIRIN 81 MG ENTERIC TAB PO SCH (09:48)
[2018-11-22] MEDS: oxyBUTYnin *DITROPAN XL* 5 MG TABCR PO SCH (09:49)
[2018-11-22] MEDS: CYANOCOBALAMIN 500 MCG TAB PO SCH (09:49)
[2018-11-22] MEDS: OMEPRAZOLE 20 MG CAP PO SCH ×2 (09:49→21:00)
[2018-11-22] MEDS: SPIRONOLACTONE 25 MG TAB PO SCH (09:49)
[2018-11-22] MEDS: MULTIVITAMINS/MINERALS THERAP 1 TAB PO SCH (09:49)
[2018-11-22] MEDS: FERROUS GLUCONATE 324 MG TAB PO SCH ×2 (09:49→17:02)
[2018-11-22] MEDS: METOPROLOL SUCC *XL* 25MG TAB (TopROL *XL*) PO SCH (09:50)
[2018-11-22] MEDS: GABAPENTIN 300 MG CAP PO SCH ×3 (09:50→21:00)
[2018-11-22] MEDS: cefTRIAXone SOD 1 GM in D5W MINI-BAG PLUS 50 ML IV SCH (09:51)
[2018-11-22 12:00] VITALS: BP 139/74
[2018-11-22] MEDS: FLUoxetine 20 MG CAP PO SCH (12:37)
[2018-11-22 16:00] VITALS: BP 158/90
[2018-11-22] MEDS: WARFARIN SOD 3 MG TAB PO SCH (17:02)
[2018-11-22 20:00] VITALS: BP 145/73
[2018-11-22] MEDS: TAMSULOSIN 0.4 MG CAP PO SCH (20:59)
[2018-11-22] MEDS: ATORVASTATIN 20 MG TAB PO SCH (20:59)
[2018-11-22] MEDS: CEFDINIR 300 MG CAP (OMNICEF) PO SCH (21:00)
[2018-11-22] MEDS: MIRTAZAPINE 15 MG TAB PO SCH (21:00)
[2018-11-22] MEDS ORDERED: ENTRESTO 24-26MG TABLET (SACUBITRIL/VALSARTAN) PO SCH (21:00)
[2018-11-22 23:59] VITALS: BP 109/60
[2018-11-23 04:00] VITALS: BP 122/68
[2018-11-23] MEDS: HYDROCORTISONE 100 MG/2 ML VIAL (J1720) IV SCH (05:46)
[2018-11-23] MEDS: SLF 3 ML SYR IV SCH (05:47)
[2018-11-23 05:48] LABS: HEMATOCRIT 27.8 % (42.0-52.0); HEMOGLOBIN 8.5 g/dl (13.5-17.5); MEAN CORPUSCULAR HEMOGLOBIN 28.1 pg (27.0-33.0); MEAN CORPUSCULAR HGB CONC 30.6 g/dl (32.0-36.5); MEAN CORPUSCULAR VOLUME 92.1 fl (80.0-96.0); PLATELET COUNT, AUTOMATED 189 10^3/uL (150-450); RED BLOOD COUNT 3.02 10^6/uL (4.30-6.10); WHITE BLOOD COUNT 10.3 10^3/uL (4.0-10.0)
[2018-11-23 06:02] LABS: INR 2.1
[2018-11-23 06:05] LABS: BLOOD UREA NITROGEN 28 MG/DL (7-18); CALCIUM LEVEL 8.1 MG/DL (8.8-10.2); CARBON DIOXIDE LEVEL 30 MEQ/L (21-32); CHLORIDE LEVEL 107 MEQ/L (98-107); CREATININE FOR GFR 1.09 MG/DL (0.70-1.30); GLOMERULAR FILTRATION RATE > 60.0 (>42); GLUCOSE, FASTING 83 MG/DL (70-100); POTASSIUM SERUM 3.4 MEQ/L (3.5-5.1); SODIUM LEVEL 144 MEQ/L (136-145)
[2018-11-23] MEDS: HumaLOG INSULIN (NovoLOG) PER UNIT SC SCH (07:30)
[2018-11-23 08:00] VITALS: BP 122/67
[2018-11-23 08:24] VITALS: BP 122/67
[2018-11-23] MEDS: FEBUXOSTAT 40 MG TABLET (ULORIC) PO SCH (08:24)
[2018-11-23] MEDS: METOPROLOL SUCC *XL* 25MG TAB (TopROL *XL*) PO SCH (08:24)
[2018-11-23] MEDS: TORSEMIDE 20 MG TAB PO SCH (08:24)
[2018-11-23] MEDS: FERROUS GLUCONATE 324 MG TAB PO SCH (08:25)
[2018-11-23] MEDS: ASPIRIN 81 MG ENTERIC TAB PO SCH (08:25)
[2018-11-23] MEDS: GABAPENTIN 300 MG CAP PO SCH (08:25)
[2018-11-23] MEDS: CYANOCOBALAMIN 500 MCG TAB PO SCH (08:25)
[2018-11-23] MEDS: MULTIVITAMINS/MINERALS THERAP 1 TAB PO SCH (08:25)
[2018-11-23] MEDS: oxyBUTYnin *DITROPAN XL* 5 MG TABCR PO SCH (08:25)
[2018-11-23] MEDS: SPIRONOLACTONE 25 MG TAB PO SCH (08:25)
[2018-11-23] MEDS: OMEPRAZOLE 20 MG CAP PO SCH (08:25)
[2018-11-23] MEDS: CEFDINIR 300 MG CAP (OMNICEF) PO SCH (08:26)
[2018-11-23] MEDS ORDERED: POTASSIUM CHLORIDE 10 MEQ SR TABLET PO ONE (08:45)
--- NOTE | 2018-11-23 09:58 | IPNPDOC ---
Subjective Date Seen The patient was seen on 11/23/18. Subjective Chief Complaint/HPI 73 yo male recently discharged 11/12/18 returns for lethargy, weakness, shortness of breath and cough, found to be hypotensive, secondary to presumed bacterial HCAP and with septic shock. He has been improving over past 6 days and no longer in sepsis. His antibiotics were transition from IV zosyn to rocephin and now is on omnicef. steroid are being tapered. He is being treated for compensated heart failure. Today patient states no SOB, mild productive cough, no CP, no N. had 3 loose stools but no diarrhea Other systems Current Medications Albuterol Sulfate (Proventil Neb) 2.5 mg Q4H PRN INH SHORTNESS OF BREATH; Start 11/17/18 at 13:45 Artificial Tears (Akwa Tears) 1 DROP BID PRN OU DRY EYES; Start 11/17/18 at 13:45 Aspirin (Ecotrin) 81 mg DAILY PO Last administered on 11/22/18 09:48; Start 11/17/18 at 09:00 Atorvastatin Calcium (Lipitor) 20 mg QHS PO Last administered on 11/22/18at 20:59; Start 11/17/18 at 21:00 Cefdinir (Omnicef) 300 mg BID PO Last administered on 11/22/18 21:00; Start 11/22/18 at 21:00 Ceftriaxone Sodium 1 gm/ Dextrose 50 ml @ 100 mls/hr Q24H IV Last administered on 11/22/18 09:51; Start 11/20/18 at 09:00; Stop 11/22/18 at 12:16; Status DC Cyanocobalamin (Vitamin B12) 1,000 mcg DAILY PO Last administered on 11/22/18at 09:49; Start 11/17/18 at 09:00 Dextrose (Dextrose 50%) 25 ml ASDIRECTED PRN IV SEE LABEL COMMENTS; Start 11/18/18 at 12:15 Febuxostat (Uloric) 80 mg DAILY PO Last administered on 11/22/18 09:48; Start 11/17/18 at 09:00 Ferrous Gluconate (Fergon) 324 mg BIDWM PO Last administered on 11/22/18 17:02; Start 11/17/18 at 18:00 Fluoxetine HCl (PROzac) 80 mg DAILY@1200 PO Last administered on 11/22/18at 12:37; Start 11/17/18 at 12:00 Gabapentin (Neurontin) 600 mg TID PO Last administered on 11/22/18at 21:00; Start 11/17/18 at 16:00 Glucagon (Glucagon) 1 mg ASDIRECTED PRN SC SEE LABEL COMMENTS; Start 11/18/18 at 12:15 Glucose (Glucose) 16 GM ASDIRECTED PRN PO SEE LABEL COMMENTS; Start 11/18/18 at 12:15 Home Med (Med Rec Complete!) ASDIRECTED XX ; Start 11/17/18 at 13:00; Stop 11/17/18 at 13:00; Status DC Hydrocortisone (A-Hydrocort) 25 mg Q12H IV Last administered on 11/23/18at 05:46; Start 11/22/18 at 17:00 Hydrocortisone (A-Hydrocort) 25 mg Q6H IV Last administered on 11/21/18at 05:22; Start 11/20/18 at 11:00; Stop 11/21/18 at 06:58; Status DC Hydrocortisone (A-Hydrocort) 25 mg Q8H IV Last administered on 11/22/18at 04:22; Start 11/21/18 at 13:00; Stop 11/22/18 at 07:06; Status DC Hydrocortisone (A-Hydrocort) 50 mg Q6H IV Last administered on 11/20/18at 04:29; Start 11/17/18 at 17:00; Stop 11/20/18 at 08:48; Status DC Insulin Human Lispro (HumaLOG INSULIN) SEE PROTOCOL TABLE AC SC Last administered on 11/22/18at 18:16; Start 11/18/18 at 17:30 Insulin Human Lispro (HumaLOG INSULIN) SEE PROTOCOL TABLE QHS SC ; Start 11/18/18 at 21:00 Metoprolol Succinate (TopROL XL) 25 mg DAILY PO Last administered on 11/22/18at 09:50; Start 11/22/18 at 09:00 Metoprolol Succinate (TopROL XL) 50 mg DAILY PO ; Start 11/17/18 at 09:00; Stop 11/17/18 at 14:19; Status DC Mirtazapine (Remeron) 30 mg QHS PO Last administered on 11/22/18at 21:00; Start 11/17/18 at 21:00 Multivitamins (Theragram-M) 1 tab DAILY PO Last administered on 11/22/18 09:49; Start 11/17/18 at 09:00 Norepinephrine Bitartrate 8 mg/ Dextrose 500 ml @ 7.5 mls/hr Q24H IV Last administered on 11/17/18 21:11; Start 11/17/18 at 21:00; Stop 11/19/18 at 07:05; Status DC Omeprazole (PriLOSEC) 40 mg BID PO Last administered on 11/22/18 21:00; Start 11/17/18 at 21:00 Oxybutynin Chloride (Ditropan Xl) 15 mg DAILY PO Last administered on 11/22/18 09:49; Start 11/17/18 at 09:00 Oxycodone HCl (Roxicodone, Oxyir) 5 mg Q6HP PRN PO MILD/MODERATE PAIN (PS 1-7) Last administered on 11/22/18 19:30; Start 11/20/18 at 09:30 Oxycodone HCl (Roxicodone, Oxyir) 10 mg Q6H PRN PO SEVERE PAIN (PS 8-10) Last administered on 11/23/18 06:43; Start 11/20/18 at 09:16 Oxycodone HCl (Roxicodone, Oxyir) 15 mg Q6H PRN PO SEVERE PAIN (PS 8-10); Start 11/20/18 at 09:15; Stop 11/20/18 at 09:16; Status DC Oxycodone/ Acetaminophen (Percocet 5mg/ 325mg Tablet) 1 tab Q6HP PRN PO SEVERE PAIN (PS 8-10); Start 11/20/18 at 09:00; Stop 11/20/18 at 09:16; Status DC Oxycodone/ Acetaminophen (Percocet 5mg/ 325mg Tablet) 1 tab Q6HP PRN PO MILD/MODERATE PAIN (PS 1-7) Last administered on 11/22/18 19:29; Start 11/20/18 at 09:00 Oxycodone/ Acetaminophen (Percocet 5mg/ 325mg Tablet) 2 tab Q4HP PRN PO SEVERE PAIN (PS 8-10) Last administered on 11/20/18 04:29; Start 11/17/18 at 20:15; Stop 11/20/18 at 08:48; Status DC Oxycodone/ Acetaminophen (Percocet 5mg/ 325mg Tablet) 2 tab Q6HP PRN PO SEVERE PAIN (PS 8-10) Last administered on 11/23/18 06:42; Start 11/20/18 at 09:16 Piperacillin Sod/ Tazobactam Sod 3.375 gm/Dextrose 50 ml @ 50 mls/hr Q6H IV Last administered on 11/20/18 04:30; Start 11/17/18 at 16:00; Stop 11/20/18 at 08:48; Status DC Piperacillin Sod/ Tazobactam Sod 4.5 gm/Dextrose 50 ml @ 50 mls/hr Q6H IV ; Start 11/17/18 at 15:30; Stop 11/17/18 at 15:46; Status DC Sacubitril/ Valsartan (Entresto 24-26 Mg) 1 tab QHS PO ; Start 11/17/18 at 21:00; Stop 11/17/18 at 21:00; Status DC Sacubitril/ Valsartan (Entresto 24-26 Mg) 1 tab QHS PO Last administered on 11/22/18 20:59; Start 11/22/18 at 21:00 Sodium Chloride (Saline Lock Flush) 2 ml ASDIRECTED PRN IV SEE LABEL COMMENTS; Start 11/19/18 at 11:45 Sodium Chloride (Saline Lock Flush) 2 ml SLF IV Last administered on 11/23/18at 05:47; Start 11/19/18 at 14:00 Spironolactone (Aldactone) 25 mg DAILY PO ; Start 11/17/18 at 09:00; Stop 11/17/18 at 14:19; Status DC Spironolactone (Aldactone) 25 mg QAM PO Last administered on 11/22/18 09:49; Start 11/22/18 at 09:00 Tamsulosin HCl (Flomax) 0.4 mg QPM PO Last administered on 11/22/18 20:59; Start 11/17/18 at 21:00 Torsemide (Demadex) 20 mg DAILY PO Last administered on 11/22/18at 09:48; Start 11/20/18 at 09:00 Trazodone HCl (Desyrel) 50 mg QHS PRN PO SLEEP Last administered on 11/21/18at 21:11; Start 11/17/18 at 13:45 Vancomycin HCl 1000 mg/IV Miscellaneous Supplies 1 each/ Dextrose 270 ml @ 270 mls/hr Q18H IV ; Start 11/19/18 at 18:00; Stop 11/19/18 at 18:00; Status DC Vancomycin HCl 1000 mg/IV Miscellaneous Supplies 1 each/ Dextrose 270 ml @ 270 mls/hr Q24H IV Last administered on 11/19/18at 05:57; Start 11/19/18 at 06:00; Stop 11/19/18 at 13:00; Status DC Warfarin Sodium (Coumadin) 3 mg DAILY@17 PO ; Start 11/17/18 at 17:00; Stop 11/17/18 at 17:00; Status DC Warfarin Sodium (Coumadin) 3 mg DAILY@17 PO Last administered on 11/22/18at 17:02; Start 11/18/18 at 17:00; Status Future hold Zolpidem Tartrate (Ambien) 5 mg QHS PRN PO SLEEP; Start 11/17/18 at 13:45; Stop 11/17/18 at 20:12; Status DC Objective Physical Examination General Exam: Positive: Alert, Cooperative, No Acute Distress Eye Exam: Positive: PERRLA ENT Exam: Positive: Mucous membr. moist/pink Neck Exam: Positive: Supple; Negative: JVD Chest Exam: Positive: Clear to auscultation, Normal air movement, Rales; Negative: Rhonchi, Wheezing Heart Exam: Positive: Bradycardic, Regular Rhythm Telemetry: Positive: Atrial fibrillation, Bradycardia Extremity Exam: Positive: Swelling (1+ edema) Skin Exam: Positive: Nl turgor and temperature Neuro Exam: Positive: Normal Speech, Sensation Intact Psych Exam: Positive: Mental status NL Other physical findings PT ambulating with patient and requires 2 liter to maintain sat above 89% RAD Interpretation STUDY: CXR Rad Actions: Report Not Available, Films Reviewed (no infiltrates, no effusions) RAD Interpretation: Unchanged Assessment /Plan Assessment ASSESSMENT: 73 yo male recently discharged 11/12/18 returns for lethargy, weakness, shortness of breath and cough, found to be hypotensive, secondary to pneumonia. 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 #gout #BPH #lupus #DLP - statin therapy #DVT prophylaxis - as above therapeutic on coumadin Plan/VTE VTE Prophylaxis Ordered?: Yes Disposition discharge home today VS, I&O, 24H, Fishbone Vital Signs/I&O Vital Signs Date Time Temp Pulse Resp B/P (MAP) Pulse Ox O2 Delivery O2 Flow Rate FiO2 11/23/18 06:43 59 18 122/68 93 2.0 11/23/18 04:00 97.3 11/17/18 19:50 Nasal Cannula I&O- Last 24 Hours up to 6 AM 11/23/18 06:00 Intake Total 1090 ml Output Total 690 ml Balance 400 ml Laboratory Data 24H LABS Laboratory Tests 2 11/22/18 12:36: Bedside Glucose (Misc Panel) 109 11/22/18 16:58: Bedside Glucose (Misc Panel) 139H 11/22/18 20:14: Bedside Glucose (Misc Panel) 104 11/23/18 05:07: Nucleated Red Blood Cells % (auto) 0.0, Prothrombin Time 24.0H, Prothromb Time International Ratio 2.10, Anion Gap 7L, Glomerular Filtration Rate > 60.0, Blood Urea Nitrogen 28H, Creatinine 1.09, Sodium Level 144, Potassium Level 3.4L, Chloride Level 107, Carbon Dioxide Level 30, Calcium Level 8.1L CBC/BMP Laboratory Tests 11/23/18 05:07 Red Blood Count 3.02 L, Mean Corpuscular Volume 92.1, Mean Corpuscular Hemoglobin 28.1, Mean Corpuscular Hemoglobin Concent 30.6 L, Red Cell Distrib ution Width 17.5 H, Calcium Level 8.1 L Microbiology Microbiology 11/17/18 Blood Culture - Final, Complete NO GROWTH AFTER 5 DAYS 11/17/18 Blood Culture - Final, Complete NO GROWTH AFTER 5 DAYS 11/20/18 Stool Occult Blood (DANNY) - Final, Complete 11/18/18 Gram Stain - Final, Complete 11/18/18 Sputum Culture - Final, Complete Escherichia Coli Yeast Like Organism 11/17/18 MRSA Screen - Final, Complete 11/17/18 Respiratory Virus Panel (PCR) (DANNY) - Final, Complete DWAYNE LUNA DO Nov 23, 2018 08:17
[2018-11-23] MEDS ORDERED: PRED20TA PO (10:09)
[2018-11-23] MEDS ORDERED: METO1TAB32 PO (10:09)
[2018-11-23] MEDS ORDERED: CEFD300CAP PO (10:09)
[2018-11-23] MEDS ORDERED: TORS10TA3 PO (10:09)
--- NOTE | 2018-11-23 10:15 | REP ---
CHEST, TWO VIEWS: Two views of the chest are performed and compared to prior studies most recently 11/17/2018. The recent bilateral infiltrates have improved and appear to have essentially resolved. There is underlying chronic interstitial fibrosis again seen unchanged. There is elevation of the left hemidiaphragm. There is cardiomegaly. There is calcification and tortuosity of the thoracic aorta. The mediastinal silhouette is unchanged. There are mild degenerative changes of the spine. IMPRESSION: Recent acute infiltrates appear to have essentially resolved. Chronic changes. Cardiomegaly. Electronically Signed by Bora Wong MD 11/23/2018 12:34 P
--- NOTE | 2018-11-23 10:33 | DS.PDOC ---
Discharge Summary General Date of Admission November 17, 2018 at 13:33 Date of Discharge 11/23/2018 Specialist/Consultants Involve PCP: [facility] provider Outpatient Specialist: Dr Hart, nephrology Discharge Summary PROCEDURES PERFORMED DURING STAY: Central line placed and removed ADMITTING DIAGNOSES: #septic shock #HCAP #likely adrenal insufficiency # HFpEF #chronic hypoxic respiratory failure #afib #CKDIII/lupus nephritis #gout #BPH #lupus #DLP DISCHARGE DIAGNOSES: #1. Septic shockresolvedassociated with hypotension, due to ECOLI HCAP #2. Escherichia coli . Healthcare associated pneumonia without bacteremia. #3. Adrenal insufficiency secondary to sepsis. #4. Compensated diastolic chronic congestive heart failure nonacute. #5. Chronic atrial fibrillation. #6. Chronic hypoxic respiratory failure. #7. Chronic kidney disease stage III due to lupus nephritisstable. COMPLICATIONS/CHIEF COMPLAINT: CHF. HISTORY OF PRESENT ILLNESS: 73-year-old male discharged on 11/12/2018 returned with lethargy, weakness, shortness of breath and cough and found to be hypotensive secondary to presumed bacterial H And septic shock with hypotension. See H&P for details HOSPITAL COURSE: Admitted to ICU, Central line placed and IV fluid sepsis protocol and Zosyn. Anti-hypertensive medications adjusted. Blood pressure improved. Started on Zosyn for 6 days, sputum culture showed Escherichia coli with sensitivities to cephalosporin. Blood cultures remained negative. Patient transitioned from Zosyn to by mouth Omnicef and continued to do well. Patient usually uses 4 L of oxygen at home and was evaluated by respiratory and required 2 L of oxygen with ambulation and rest to maintain O2 sats greater than 88%. Patient initially treated with stress doses of steroids and tapered to oral prednisone. He will need 4 more days of oral prednisone and antibiotics to complete treatment. Repeat chest x-ray remained stable with no worsening. Patient's chronic kidney disease and lupus nephritis remained stable and did not require dialysis during this hospitalization. Patient is therapeutic on Coumadin for his chronic atrial fibrillation. Patient is being discharged in stable and improved condition ECHO: CONCLUSIONS: 1. Study is of fair technical quality. 2. Normal LV size with mild LVH and grossly preserved LV systolic function. 3. Mild aortic stenosis. 4. Mild to moderate mitral insufficiency. 5. High central venous pressure. 6. At least moderate pulmonary hypertension. 7. Right-sided heart chambers and valves were poorly seen. DISCHARGE MEDICATIONS: Please see below. ALLERGIES: Please see below. PHYSICAL EXAMINATION ON DISCHARGE: Vitals as below General Exam: Positive: Alert, Cooperative, No Acute Distress Eye Exam: Positive: PERRLA ENT Exam: Positive: Mucous membr. moist/pink Neck Exam: Positive: Supple; Negative: JVD Chest Exam: Positive: Clear to auscultation, Normal air movement, Rales; Negative: Rhonchi, Wheezing Heart Exam: Positive: Bradycardic, Regular Rhythm Telemetry: Positive: Atrial fibrillation, Bradycardia Extremity Exam: Positive: Swelling (1+ edema) Skin Exam: Positive: Nl turgor and temperature Neuro Exam: Positive: Normal Speech, Sensation Intact Psych Exam: Positive: Mental status NL LABORATORY DATA: Please see below. IMAGING: Chest x-ray,echo PROGNOSIS: good ACTIVITY: As tolerated. DIET: Cardiac, low-salt DISCHARGE PLAN: [facility], follow up as previously scheduled with nephrology, November 29 DISPOSITION: Home. DISCHARGE CONDITION: Stable. TIME SPENT ON DISCHARGE: Greater than 40 minutes. Vital Signs/I&Os Vital Signs Date Time Temp Pulse Resp B/P (MAP) Pulse Ox O2 Delivery O2 Flow Rate FiO2 11/23/18 08:24 64 122/67 11/23/18 08:00 97.5 18 98 2.0 11/17/18 19:50 Nasal Cannula I&O- Last 24 Hours up to 6 AM0 11/23/18 06:00 Intake Total 1090 ml Output Total 690 ml Balance 400 ml Laboratory Data Labs 24H Laboratory Tests 2 11/22/18 12:36: Bedside Glucose (Misc Panel) 109 11/22/18 16:58: Bedside Glucose (Misc Panel) 139H 11/22/18 20:14: Bedside Glucose (Misc Panel) 104 11/23/18 05:07: Nucleated Red Blood Cells % (auto) 0.0, Prothrombin Time 24.0H, Prothromb Time International Ratio 2.10, Anion Gap 7L, Glomerular Filtration Rate > 60.0, Blood Urea Nitrogen 28H, Creatinine 1.09, Sodium Level 144, Potassium Level 3.4L, Chloride Level 107, Carbon Dioxide Level 30, Calcium Level 8.1L CBC/BMP Laboratory Tests 11/23/18 05:07 Red Blood Count 3.02 L, Mean Corpuscular Volume 92.1, Mean Corpuscular Hemoglobin 28.1, Mean Corpuscular Hemoglobin Concent 30.6 L, Red Cell Distribution Width 17.5 H, Calcium Level 8.1 L FSBS Laboratory Tests Test 11/22/18 12:36 11/22/18 16:58 11/22/18 20:14 Range/Units Bedside Glucose (Misc Panel) 109 139 104 83-110 MG/DL Microbiology Microbiology 11/17/18 Blood Culture - Final, Complete NO GROWTH AFTER 5 DAYS 11/17/18 Blood Culture - Final, Complete NO GROWTH AFTER 5 DAYS 11/20/18 Stool Occult Blood (DANNY) - Final, Complete 11/18/18 Gram Stain - Final, Complete 11/18/18 Sputum Culture - Final, Complete Escherichia Coli Yeast Like Organism 11/17/18 MRSA Screen - Final, Complete 11/17/18 Respiratory Virus Panel (PCR) (DANNY) - Final, Complete Discharge Medications Scheduled Acarbose (Acarbose) 25 Mg Tab, 25 MG PO AC, (Reported) Aspirin (Aspirin EC) 81 Mg Tablet.dr, 81 MG PO DAILY, (Reported) Atorvastatin Calcium (Atorvastatin Calcium) 40 Mg Tablet, 20 MG PO QHS, (Reported) Calcium Carbonate/Vitamin D3 (Calcium 600-Vit D3 400 Tablet) 1 Each Tablet, 1 TAB PO BID, (Reported) Cefdinir (Cefdinir) 300 Mg Capsule, 300 MG PO BID Cyanocobalamin (Vitamin B-12) (Vitamin B-12) 1,000 Mcg Tab, 1,000 MCG PO DAILY, (Reported) Epoetin Carson (Procrit) 20,000 Unit/Ml Inj, 20,000 UNIT SC Q2WK, (Reported) Ergocalciferol (Vitamin D2) (Vitamin D2) 50,000 Unit Cap, 50,000 UNIT PO QWEEK, (Reported) WEDNESDAYS Febuxostat (Uloric) 80 Mg Tab, 80 MG PO DAILY, (Reported) Ferrous Gluconate (Ferrous Gluconate) 324 Mg Tab, 324 MG PO BIDWM, (Reported) Fluoxetine Hcl (Fluoxetine HCl) 20 Mg Cap, 80 MG PO DAILY, (Reported) TAKES AT 1200 Gabapentin (Gabapentin) 600 Mg Tablet, 600 MG PO TID, (Reported) L.acidoph/L.bulg/B.bif/S.therm (Bacid Caplet) 1 Tab Tab, 1 TAB PO DAILY, (Reported) Magnesium Chloride (Slow-Mag) 1 Tab Tab, 1 TAB PO DAILY, (Reported) TAKES AT 1200 Metoprolol Succinate (Metoprolol Succinate) 25 Mg Tab.er.24h, 25 MG PO DAILY Mirtazapine (Remeron) 30 Mg Tab, 30 MG PO QHS, (Reported) Multivitamins (Thera M Plus Tablet) 1 Tab Tab, 1 TAB PO DAILY, (Reported) Omeprazole (Omeprazole) 20 Mg Tablet.dr, 40 MG PO BID, (Reported) Oxybutynin Chloride (Oxybutynin Chloride ER) 15 Mg Tab, 15 MG PO DAILY, (Reported) Prednisone (Prednisone) 20 Mg Tablet, 20 MG PO QAM 1 pill daily for 2 days then 1/2 pill daily for 2 days and stop Ranitidine HCl (Ranitidine HCl) 150 Mg Tab, 1 TAB PO BID, (Reported) Sacubitril/Valsartan (Entresto 24 mg-26 mg Tablet) 1 Each Tablet, 1 TAB PO QHS, (Reported) Spironolactone (Spironolactone) 25 Mg Tablet, 25 MG PO DAILY, (Reported) Tamsulosin HCl (Flomax) 0.4 Mg Cap, 0.4 MG PO QPM, (Reported) Torsemide (Torsemide) 10 Mg Tablet, 20 MG PO DAILY patient has prescription at home. decreased strength of dose Warfarin Sodium (Warfarin Sodium) 2 Mg Tab, 2 MG PO 1XWK, (Reported) QPM: THURSDAY Warfarin Sodium (Warfarin Sodium) 2 Mg Tablet, 3 MG PO 6XWK, (Reported) QPM: THU, , WED, THURS, FRI, SAT Scheduled PRN Albuterol Sulf (Albuterol Sulfate) 2.5 Mg/3 Ml Nebu, 2.5 MG INH Q4H PRN for SHORTNESS OF BREATH, (Reported) Albuterol Sulfate (Proair Hfa) 108 Mcg/Act Aer, 1 PUFF INH Q4H PRN for SHORTNESS OF BREATH, (Reported) Hydrocodone/Acetaminophen (Hydrocodone-Acetamin 10-325 mg) 1 Tab Tab, 2 TAB PO TID PRN for PAIN, (Reported) Nitroglycerin (Nitrostat) 0.4 Mg Subl, 0.4 MG SL NITRO PRN for CHEST PAIN, (Reported) Polyvinyl Alcohol (Artificial Tears) 1.4 % Joyce, 1 DROP OU BID PRN for DRY EYES, (Reported) Trazodone HCl (Trazodone HCl) 50 Mg Tab, 50 MG PO QHS PRN for SLEEP, (Reported) Allergies Coded Allergies: allopurinol (Verified Adverse Reaction, Mild, itching, 11/17/18) DWAYNE LUNA DO Nov 23, 2018 10:12
[2018-11-24] MEDS ORDERED: predniSONE 20 MG TAB PO SCH (09:00)
== END 2018-11-23 12:09 | disposition home health service (06) | DRG 871 ==
LOC: EDBD 10:24 → M ED 10:24 → M ED INP 13:33 → M ICU 19:59 → M PCU 11-19 07:05
PROVIDERS: ADMIT Internal Medicine; ATTEND Family Medicine
PROC: 02HV33Z Insertion of Infusion Device into Superior Vena Cava, Percutaneous Approach (ICD-10-PCS; principal; 2018-11-17)
DX: A41.9 Sepsis, unspecified organism (principal); J15.5 Pneumonia due to Escherichia coli; R65.21 Severe sepsis with septic shock; E27.40 Unspecified adrenocortical insufficiency; I50.32 Chronic diastolic (congestive) heart failure; J96.11 Chronic respiratory failure with hypoxia; I13.0 Hypertensive heart and chronic kidney disease with heart failure and stage 1 through stage 4 chronic kidney disease, or unspecified chronic kidney disease; I48.2 Chronic atrial fibrillation; N18.3 Chronic kidney disease, stage 3 (moderate); M32.14 Glomerular disease in systemic lupus erythematosus; M10.9 Gout, unspecified; N40.0 Benign prostatic hyperplasia without lower urinary tract symptoms; I95.9 Hypotension, unspecified; Z79.899 Other long term (current) drug therapy; Z79.82 Long term (current) use of aspirin; Z88.8 Allergy status to other drugs, medicaments and biological substances; E87.5 Hyperkalemia; I48.0 Paroxysmal atrial fibrillation; Z79.01 Long term (current) use of anticoagulants

== ENCOUNTER 2018-12-06 13:04 | Inpatient (IN) | payer OTHER, MEDICARE ==
[~2018-12-06] VITALS: Ht 172.7 cm; Wt 115.7 kg
[~2018-12-06 13:04] MED LIST changes: +CEFD300CAP PO; +METO1TAB7 PO; -METOPROLOL SUCC (TopROL XL) 50MG **XL** TAB PO SCH; +OMEP20TA18 PO; -SPIRONOLACTONE 25 MG TAB PO SCH
[2018-12-06] MEDS ORDERED: DILUENT IV ONE (15:00)
[2018-12-06] MEDS ORDERED: NS IV ONE (15:00)
[2018-12-06 15:12] LABS: ABG BASE EXCESS 5.2 (-2.0-2.0); ABG O2 SATURATION 95.4 % (95.0-99.0); ABG PARTIAL PRESSURE CO2 39.5 mmHg (35.0-45.0); ABG PARTIAL PRESSURE O2 77.1 mmHg (75.0-100.0); ABG STANDARD HCO3 29.1 MEQ/L (22.0-26.0); ABG TOTAL CO2 30.2 MEQ/L (23.0-31.0); ABG pH (ARTERIAL) 7.484 UNITS (7.350-7.450)
[2018-12-06 15:12] LABS: BASO % 0.8 % (0.0-1.0); EOS # 0.2 10^3/uL (0.0-0.50); EOS % 4.4 % (0.0-3.0); HEMATOCRIT 27.5 % (42.0-52.0); HEMOGLOBIN 8.6 g/dl (13.5-17.5); LYMPH % 19.4 % (24.0-44.0); MEAN CORPUSCULAR HEMOGLOBIN 29.4 pg (27.0-33.0); MEAN CORPUSCULAR HGB CONC 31.3 g/dl (32.0-36.5); MEAN CORPUSCULAR VOLUME 93.9 fl (80.0-96.0); MONO # 1.3 10^3/uL (0.0-0.8); MONO % 24.5 % (0.0-5.0); NEUTROPHILS # 2.7 10^3/uL (1.8-7.7); NEUTROPHILS % 50.7 % (36.0-66.0); PLATELET COUNT, AUTOMATED 153 10^3/uL (150-450); RED BLOOD COUNT 2.93 10^6/uL (4.30-6.10); WHITE BLOOD COUNT 5.3 10^3/uL (4.0-10.0)
[2018-12-06 15:20] LABS: INR 4.08; PROTHROMBIN TIME 40.6 SECONDS (12.1-14.4)
[2018-12-06] MEDS ORDERED: PIPERACILLIN/TAZOBACTAM SOD 4.5 GM in D5W MINI-BAG PLUS 50 ML IV ONE (15:30)
[2018-12-06 15:31] LABS: APPEARANCE, URINE HAZY (CLEAR); BACTERIA, URINE AUTO NEGATIVE (NEGATIVE); BILIRUBIN, URINE AUTO NEGATIVE (NEGATIVE); BLOOD, URINE BLOOD 2+ (NEGATIVE); COLOR, URINE YELLOW (YELLOW); GLUCOSE, URINE (UA) AUTO NEGATIVE (NEGATIVE); KETONE, URINE AUTO NEGATIVE (NEGATIVE); LEUKOCYTE ESTERASE, URINE AUTO NEGATIVE (NEGATIVE); NITRITE, URINE AUTO NEGATIVE (NEGATIVE); PROTEIN, URINE AUTO 2+ mg/dL (NEGATIVE); RBC, URINE AUTO 14 /HPF (0-3); SPECIFIC GRAVITY URINE AUTO 1.006 (1.002-1.035); SQUAMOUS EPITHELIAL CELL UR AU 0 /HPF (0-6); UROBILINOGEN, URINE AUTO 0.2 mg/dL (0.0-2.0); WBC, URINE AUTO 3 /HPF (0-3)
[2018-12-06] MEDS ORDERED: TORS10TA3 PO (15:37)
[2018-12-06] MEDS ORDERED: METO1TAB7 PO (15:37)
[2018-12-06 15:40] LABS: ALBUMIN 2.5 GM/DL (3.2-5.2); ALT/SGPT 16 U/L (12-78); BILIRUBIN,DIRECT 0.2 MG/DL (0.0-0.2); BILIRUBIN,TOTAL 0.4 MG/DL (0.2-1.0); BLOOD UREA NITROGEN 17 MG/DL (7-18); CALCIUM LEVEL 8.2 MG/DL (8.8-10.2); CARBON DIOXIDE LEVEL 34 MEQ/L (21-32); CHLORIDE LEVEL 99 MEQ/L (98-107); CK-MB VALUE MASS < 1.0 NG/ML (<3.6); CPK CREATINE PHOSPHOKINASE 57 U/L (39-308); CREATININE FOR GFR 1.22 MG/DL (0.70-1.30); GLOMERULAR FILTRATION RATE > 60.0 (>42); GLUCOSE, FASTING 92 MG/DL (70-100); MB/CK RELATIVE INDEX 1.75 (< OR =4); NT-PRO BNP 11252 PG/ML (<125); SODIUM LEVEL 137 MEQ/L (136-145); THYROID STIMULATING HORMONE 0.972 uIU/ML (0.358-3.740); TOTAL PROTEIN 5.5 GM/DL (6.4-8.2); TROPONIN I 0.02 NG/ML (< 0.10)
[2018-12-06 15:45] LABS: INFLUENZA A AMPLIFICATION NEGATIVE (NEGATIVE); INFLUENZA B AMPLIFICATION NEGATIVE (NEGATIVE)
[2018-12-06] MEDS ORDERED: NORCO, ANEXSIA 5/325MG TABLET (HYDROcodone/ACETAMINOPHEN) PO ONE (15:45)
[2018-12-06] MEDS ORDERED: HYDROCORTISONE 100 MG/2 ML VIAL (J1720) IV ONE (15:45)
--- NOTE | 2018-12-06 16:34 | REP ---
Chest x-ray: Two views: History: Dyspnea and cough. Comparison chest x-ray: November 23, 2018. Findings: EKG monitoring electrodes are noted. There are new infiltrates in the left upper lobe and left base consistent with pneumonia. Heart is mildly enlarged unchanged. No pleural effusion is seen. Impression: New infiltrates left upper and lower lung zones. Compatible with pneumonia. Electronically Signed by Mustapha Brown MD 12/06/2018 04:43 P
[2018-12-06] MEDS ORDERED: ACETAMINOPHEN 500 MG TAB PO PRN (17:15)
[2018-12-06] MEDS ORDERED: VANCOMYCIN HCL 1,000 MG, VIAL MATE ADAPTER 1 EACH in D5W 250 ML IV ONE (17:30)
[2018-12-06] MEDS ORDERED: ALBUTEROL 90 MCG/ACT 8GM HFA INHALER INH PRN (17:45)
[2018-12-06] MEDS ORDERED: POLYVINYL ALCOHOL OPHTH SOLN 15 ML(LIQUITEARS) OU PRN (17:45)
[2018-12-06] MEDS ORDERED: traZODone 50 MG TAB PO PRN (17:45)
[2018-12-06] MEDS ORDERED: GLUCAGON FOR INJ 1 MG VIAL (J1610) SC PRN (18:00)
[2018-12-06] MEDS ORDERED: DEXTROSE 50% 50 ML SYRINGE IV PRN (18:00)
[2018-12-06] MEDS ORDERED: GLUCOSE 4 GM CHEW TABLET PO PRN (18:00)
[2018-12-06] MEDS ORDERED: FUROSEMIDE 40 MG/4 ML VIAL (J1940) IV ONE (18:15)
--- NOTE | 2018-12-06 18:15 | HPEPDOC ---
General Date of Admission Dec 06, 2018 at 17:04 Date of Service: Dec 06, 2018 Chief Complaint The patient is a 73-year-old male admitted with a reason for visit of SOB. 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 fib on Coumadin, DM2, CAD who presents to the ED after worsening SOB for about three days associated with fevers at home of 101 F and increased swelling in b/l LE. The patient was recently d/c on 11.23.18 after a 7 day stay in the hospital for sepsis secondary to E. Coli HAP. The patient states that on Thursday ( about three days ago) he noted his chronic and baseline SOB become worse, rather acutely but he stated he tried to stay home and manage it and did not seek medical care. He also noted around this time his legs begin to swell more, he admitted to a weight gain at home over the past week or so but did not let his PCP know. He denies recent sick contact or travel. No night sweats, but he has been experiencing chills, no n/v or diarrhea, he is eating appropriately. Currently he complains of the pain in his neck and back, chronic for him, he does state he is a little out of breath right now but much better than when he first presented to the ED. He denies CP or palpitations. Home Medications Scheduled Acarbose (Acarbose) 25 Mg Tab, 25 MG PO AC, (Reported) Aspirin (Aspirin EC) 81 Mg Tablet.dr, 81 MG PO DAILY, (Reported) Atorvastatin Calcium (Atorvastatin Calcium) 40 Mg Tablet, 20 MG PO QHS, (Reported) Calcium Carbonate/Vitamin D3 (Calcium 600-Vit D3 400 Tablet) 1 Each Tablet, 1 TAB PO BID, (Reported) Cyanocobalamin (Vitamin B-12) (Vitamin B-12) 1,000 Mcg Tab, 1,000 MCG PO DAILY, (Reported) Epoetin Carson (Procrit) 20,000 Unit/Ml Inj, 20,000 UNIT SC Q2WK, (Reported) Ergocalciferol (Vitamin D2) (Vitamin D2) 50,000 Unit Cap, 50,000 UNIT PO QWEEK, (Reported) WEDNESDAYS Febuxostat (Uloric) 80 Mg Tab, 80 MG PO DAILY, (Reported) Ferrous Gluconate (Ferrous Gluconate) 324 Mg Tab, 324 MG PO BIDWM, (Reported) Fluoxetine Hcl (Fluoxetine HCl) 20 Mg Cap, 80 MG PO DAILY, (Reported) TAKES AT 1200 Gabapentin (Gabapentin) 600 Mg Tablet, 600 MG PO TID, (Reported) L.acidoph/L.bulg/B.bif/S.therm (Bacid Caplet) 1 Tab Tab, 1 TAB PO DAILY, (Reported) Magnesium Chloride (Slow-Mag) 1 Tab Tab, 1 TAB PO DAILY, (Reported) TAKES AT 1200 Metoprolol Succinate (Metoprolol Succinate) 50 Mg Tab.er.24h, 25 MG PO DAILY, (Reported) Mirtazapine (Remeron) 30 Mg Tab, 30 MG PO QHS, (Reported) Multivitamins (Thera M Plus Tablet) 1 Tab Tab, 1 TAB PO DAILY, (Reported) Omeprazole (Omeprazole) 20 Mg Tablet.dr, 40 MG PO BID, (Reported) Oxybutynin Chloride (Oxybutynin Chloride ER) 15 Mg Tab, 15 MG PO DAILY, (Reported) Ranitidine HCl (Ranitidine HCl) 150 Mg Tab, 1 TAB PO BID, (Reported) Sacubitril/Valsartan (Entresto 24 mg-26 mg Tablet) 1 Each Tablet, 1 TAB PO QHS, (Reported) Spironolactone (Spironolactone) 25 Mg Tablet, 25 MG PO DAILY, (Reported) Tamsulosin HCl (Flomax) 0.4 Mg Cap, 0.4 MG PO QPM, (Reported) Torsemide (Torsemide) 10 Mg Tablet, 10 MG PO DAILY, (Reported) Warfarin Sodium (Warfarin Sodium) 2 Mg Tab, 2 MG PO 1XWK, (Reported) QPM: THURSDAY Warfarin Sodium (Warfarin Sodium) 2 Mg Tablet, 3 MG PO 6XWK, (Reported) QPM: SUN, TUES, WED, THURS, FRI, SAT Scheduled PRN Albuterol Sulf (Albuterol Sulfate) 2.5 Mg/3 Ml Nebu, 2.5 MG INH Q4H PRN for SHORTNESS OF BREATH, (Reported) Albuterol Sulfate (Proair Hfa) 108 Mcg/Act Aer, 1 PUFF INH Q4H PRN for SHORTNESS OF BREATH, (Reported) Hydrocodone/Acetaminophen (Hydrocodone-Acetamin 10-325 mg) 1 Tab Tab, 2 TAB PO TID PRN for PAIN, (Reported) Nitroglycerin (Nitrostat) 0.4 Mg Subl, 0.4 MG SL NITRO PRN for CHEST PAIN, (Reported) Polyvinyl Alcohol (Artificial Tears) 1.4 % Joyce, 1 DROP OU BID PRN for DRY EYES, (Reported) Trazodone HCl (Trazodone HCl) 50 Mg Tab, 50 MG PO QHS PRN for SLEEP, (Reported) Allergies Coded Allergies: allopurinol (Verified Adverse Reaction, Mild, itching, 12/06/18) Past Medical History Medical History as per [facility] Surgical History -Knee surgery -Cataract surgery -Coronary artery disease, S/P PCI -Back surgery -Renal biopsy -BPH -Marcial's esophagus -Vitamin D deficiency -PTSD Family History Significant Family History: Noncontributory Social History * Smoker: former Smoker Alcohol: Denies Drugs: denies 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 he lives @ home with his granddaughter who helps him A-FIB/CHADSVASC A-FIB History Current/History of A-Fib/PAF?: Yes Current PO Anticoag Therapy: Yes Review of Systems Constitutional: Reports: Chills, Fever, Malaise, Weakness; Denies: Night Sweats Eyes: Denies: Vision change Skin: Denies: Rash, Lesions Pulmonary: Reports: Dyspnea; Denies: Cough, Pleuritic Chest Pain Cardiovascular: Reports: Edema; Denies: Chest Pain, Palpitations, Orthopnea, Lt Headedness Gastrointestinal: Denies: Nausea, Vomiting Genitourinary: Denies: Dysuria Musculoskeletal: Reports: Neck Pain, Back Pain Neurological: Reports: Weakness Psych: Reports: Mood Normal Physical Examination General Exam: Positive: Alert, Cooperative, Mild Distress Eye Exam: Positive: Conjunctiva & lids normal Neck Exam: Positive: Supple Chest Exam: Positive: Diminished, Other (fine velcro like crackles throughout but worse in b/l bases); Negative: Rales, Rhonchi, Wheezing Heart Exam: Positive: Irregular Rhythm, Normal S1, Normal S2, Murmurs (systolic best heard at R 2nd ICS); Negative: Gallops Telemetry: Positive: Atrial fibrillation Abdomen Exam: Positive: Normal bowel sounds, Soft; Negative: Tenderness, Hepatospenomegaly Extremity Exam: Positive: Edema (+ 2 bl LE) Neuro Exam: Positive: Normal Speech Psych Exam: Positive: Mood NL, Oriented x 3 Vital Signs Vital Signs Date Time Temp Pulse Resp B/P (MAP) Pulse Ox O2 Delivery O2 Flow Rate FiO2 12/06/18 16:49 68 18 91 Nasal Cannula 3.0 12/06/18 16:44 116/57 (76) 12/06/18 15:42 101.1 Laboratory Data Labs 24H Laboratory Tests 2 12/06/18 13:59: Lactic Acid Level 0.8 12/06/18 14:38: Blood Gas Bicarbonate Standard 29.1H, Arterial Blood pH 7.484H, Arterial Blood Partial Pressure CO2 39.5, Arterial Blood Partial Pressure O2 77.1, Arterial Blood Total CO2 30.2, Arterial Blood HCO3 29.0H, Arterial Blood Base Excess 5.2H, Arterial Blood Oxygen Saturation 95.4 12/06/18 14:57: Prothrombin Time 40.6H, Prothromb Time International Ratio 4.08, Urine Appearance HAZY, Urine Color YELLOW, Urine pH 5.0, Urine Specific [place] 1.006, Urine Protein 2+H, Urine Glucose (UA) NEGATIVE, Urine Ketones NEGATIVE, Urine Urobilinogen 0.2, Urine Bilirubin NEGATIVE, Urine Leukocyte Esterase NEGATIVE, Urine Blood 2+H, Urine Nitrite NEGATIVE, Urine WBC (Auto) 3, Urine RBC (Auto) 14H, Urine Hyaline Casts (Auto) 5, Urine Bacteria (Auto) NEGATIVE, Urine Squamous Epithelial Cells 0, Urine Sperm (Auto) , Influenza Type A (RT-PCR) NEGATIVE, Influenza Type B (RT-PCR) NEGATIVE 12/06/18 14:58: Immature Granulocyte % (Auto) 0.2, White Blood Count 5.3, Red Blood Count 2.93L, Hemoglobin 8.6L, Hematocrit 27.5L, Mean Corpuscular Volume 93.9, Mean Corpuscular Hemoglobin 29.4, Mean Corpuscular Hemoglobin Concent 31.3L, Red Cell Distribution Width 17.8H, Platelet Count 153, Neutrophils (%) (Auto) 50.7, Lymphocytes (%) (Auto) 19.4L, Monocytes (%) (Auto) 24.5H, Eosinophils (%) (Auto) 4.4H, Basophils (%) (Auto) 0.8, Neutrophils # (Auto) 2.7, Lymphocytes # (Auto) 1.0L, Monocytes # (Auto) 1.3H, Eosinophils # (Auto) 0.2, Basophils # (Auto) 0.0, Nucleated Red Blood Cells % (auto) 0.0, Anion Gap 4L, Glomerular Filtration Rate > 60.0, Calcium Level 8.2L, Aspartate Amino Transf (AST/SGOT) 17, Alanine Aminotransferase (ALT/SGPT) 16, Alkaline Phosphatase 110, Total Bilirubin 0.4, Direct Bilirubin 0.2, Total Creatine Kinase 57, Creatine Kinase MB < 1.0, Creatine Kinase MB Relative Index 1.75, Troponin I 0.02, AE-Nus-M-Type Natriuretic Peptide 91325R, Total Protein 5.5L, Albumin 2.5L, Albumin/Globulin Ratio 0.83L, Thyroid Stimulating Hormone (TSH) 0.972 CBC/BMP Laboratory Tests 12/06/18 14:58 Red Blood Count 2.93 L, Mean Corpuscular Volume 93.9, Mean Corpuscular Hemoglobin 29.4, Mean Corpuscular Hemoglobin Concent 31.3 L, Red Cell Distribution Width 17.8 H, Neutrophils (%) (Auto) 50.7, Lymphocytes (%) (Auto) 19.4 L, Monocytes (%) (Auto) 24.5 H, Eosinophils (%) (Auto) 4.4 H, Basophils (%) (Auto) 0.8, Neutrophils # (Auto) 2.7, Lymphocytes # (Auto) 1.0 L, Monocytes # (Auto) 1.3 H, Eosinophils # (Auto) 0.2, Basophils # (Auto) 0.0 Microbiology Microbiology 12/06/18 Blood Culture, Received Pending 12/06/18 Blood Culture, Received Pending 12/06/18 Urine Culture, Received Pending Assessment/Plan 1. SOB secondary to HCAP and diastolic CHF exacerbation -his BNP is elevated compare to prior hospitalization, his CXR shows concern for left sided upper/lower infiltrate, he is febrile-he has been hospitalized recently so will tx for HCAP, sputum sensitivities in past positive for E. coli, he will be covered on IV Zosyn and Vancomycin -For signs of decompensated CHF, we will begin Lasix 40 mg IV BID, he should be on fluid restricted diet right now -his BP is soft, so we will monitor closely, have c/w home BP meds with holding parameters -blood cx pending x2 -we have ordered cortisol and ACTH levels, some concern over adrenal insufficiency and low BP on last visit- if BP continues to be soft, could consider stress dosing of steroids -Last ECHO October 2018 showed preserved LV function with pulmonary HTN and elevated CVP 2. DM2 -SS Insulin with hypoglycemic protocol 3. DLP -c/w home medications 4. HTN -c/w home medications w/ hold parameters in light of soft bp 5. A fib on Coumaden -his INR was supRAtherapeutic on presentation, will hold tonight dose of Coumadin, monitor INR daily, can consider decreasing dose beginning tomorrow by 10%- so pt should get about 18 mg Coumadin weekly total then 6. COPD & ILD -c/w home inhalers 7. Gout -c/w Uloric, pt allergic to allopurinol 8. CBP -c/w PO pain medications 9. BPH -c/w home flomax 10. DVT px -on Coumadin Plan / VTE VTE Prophylaxis Ordered?: Yes GME ATTESTATION GME ATTESTATION My faculty preceptor for this patient encounter was physically present during the encounter and was fully available. All aspects of the patient interview, examination, medical decision making process, and medical care plan development were reviewed and approved by the faculty preceptor. The faculty preceptor is aware and concurs with the plan as stated in the body of this note and will attest to such by his/her cosignature. ATTENDING NOTE I personally performed a history and physical examination of the patient and discussed the management with the resident. I reviewed the resident's note and agree with the documented findings and plan of care with the following addendum s/alterations: Patient does have h/o bilateral PE also in 2018 along with Afib so is on coumadin Also has CKD 3 due to Lupus nephritis. creatinine is better than baseline this could be fluid related. His ILD could be Lupus related also KELLY CARTER DO Dec 06, 2018 18:15 ESTEVAN DAVIS MD Dec 08, 2018 05:32
[2018-12-06] MEDS: HumaLOG INSULIN (NovoLOG) PER UNIT SC SCH (20:00)
[2018-12-06] MEDS: GABAPENTIN 300 MG CAP PO SCH (20:25)
[2018-12-06] MEDS: MIRTAZAPINE 15 MG TAB PO SCH (20:25)
[2018-12-06] MEDS: ATORVASTATIN 20 MG TAB PO SCH (20:25)
[2018-12-06] MEDS: TAMSULOSIN 0.4 MG CAP PO SCH (20:26)
[2018-12-06] MEDS: OMEPRAZOLE 20 MG CAP PO SCH (20:26)
--- NOTE | 2018-12-06 20:56 | PHACANCOPD ---
PHARMACY VANCOMYCIN DOSING Pt Demographics Demographics Patient Age:73 , Weight:116.360 , Gender: male Adjusted Body Weight Date: 12/06/18, Adjusted Body Weight: Kg Events Past 24 Hours Events Past 24 Hours: NO: Dialysis, Diuretic Therapy, Change in CrCl, Fever, Elevation in WBC, Pending Diagnostics, Pending Procedures, Other Vancomycin Vancomycin Target Ranges: 15-20 mcg/ml Vancomycin Load Y/N: Yes Load Dose Date Time Vancomycin Load Dose: 2000mg Date: 12-07 Time: 0000 Vancomycin Dose Date: 12/06/18. Current Vancomycin Dose: [1000mg q12h] Intermittent Dosing?: No Labs Labs Item Value Date Time White Blood Count 5.3 10^3/uL 12/06/18 1458 Glomerular Filtration Rate > 60.0 12/06/18 1458 Creatinine 1.22 MG/DL 12/06/18 1458 Blood Urea Nitrogen 17 MG/DL 12/06/18 1458 Vital Signs Label Value Date Time Patient Temperature 98.7 degrees F 12/06/18 1904 Temperature Source Oral 12/06/18 1904 Micro Microbiology 12/06/18 Blood Culture, Received Pending 12/06/18 Blood Culture, Received Pending 12/06/18 Urine Culture, Received Pending Creatinine Clearance Date:12/06/18. Creatinine Clearance: [~50]. Pending Labs Trough 12-07 @2300 Assessment and Plan Maintaining Current Dose?: Yes Reason for dose change: No Dose Change Pharmacist Note Pharmacist Note Date: 12/06/18. Pharmacist note:Will monitor and make adjustments as needed. JEN WINN PHARMACY Dec 06, 2018 20:56
[2018-12-06] MEDS: FERROUS GLUCONATE 324 MG TAB PO SCH (22:26)
[2018-12-06] MEDS: NORCO, ANEXSIA 5/325MG TABLET (HYDROcodone/ACETAMINOPHEN) PO PRN (22:35)
[2018-12-06] MEDS: PIPERACILLIN/TAZOBACTAM SOD 3.375 GM in D5W MINI-BAG PLUS 50 ML IV SCH (22:36)
[2018-12-06 23:03] VITALS: BP 85/46
[2018-12-07] VITALS: BP 113/54
[2018-12-07] MEDS: VANCOMYCIN HCL 1,000 MG, VIAL MATE ADAPTER 1 EACH in D5W 250 ML IV SCH ×3 (00:20→23:38)
[2018-12-07] MEDS: PIPERACILLIN/TAZOBACTAM SOD 3.375 GM in D5W MINI-BAG PLUS 50 ML IV SCH ×4 (03:14→21:55)
[2018-12-07 04:19] VITALS: BP 108/77
[2018-12-07] MEDS: NORCO, ANEXSIA 5/325MG TABLET (HYDROcodone/ACETAMINOPHEN) PO PRN ×3 (04:47→18:15)
--- NOTE | 2018-12-07 05:55 | ECGEPIP ---
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
[2018-12-07] MEDS: HumaLOG INSULIN (NovoLOG) PER UNIT SC SCH ×4 (07:30→20:37)
[2018-12-07 07:35] LABS: BASO % 0.8 % (0.0-1.0); EOS # 0.3 10^3/uL (0.0-0.50); EOS % 6.1 % (0.0-3.0); HEMATOCRIT 29.9 % (42.0-52.0); HEMOGLOBIN 9.2 g/dl (13.5-17.5); LYMPH # 0.6 10^3/uL (1.5-4.5); LYMPH % 12.5 % (24.0-44.0); MEAN CORPUSCULAR HEMOGLOBIN 28.9 pg (27.0-33.0); MEAN CORPUSCULAR HGB CONC 30.8 g/dl (32.0-36.5); NEUTROPHILS # 3.1 10^3/uL (1.8-7.7); NEUTROPHILS % 61.4 % (36.0-66.0); PLATELET COUNT, AUTOMATED 148 10^3/uL (150-450); RED BLOOD COUNT 3.18 10^6/uL (4.30-6.10); WHITE BLOOD COUNT 5.1 10^3/uL (4.0-10.0)
[2018-12-07 07:47] LABS: INR 3.89; PROTHROMBIN TIME 39.1 SECONDS (12.1-14.4)
[2018-12-07 07:56] LABS: CALCIUM LEVEL 8.7 MG/DL (8.8-10.2); CREATININE FOR GFR 1.33 MG/DL (0.70-1.30); GLOMERULAR FILTRATION RATE 56.1 (>42); POTASSIUM SERUM 3.6 MEQ/L (3.5-5.1)
[2018-12-07 08:00] VITALS: BP 141/76
[2018-12-07] MEDS: FEBUXOSTAT 40 MG TABLET (ULORIC) PO SCH (08:47)
[2018-12-07] MEDS: SPIRONOLACTONE 25 MG TAB PO SCH (08:47)
[2018-12-07] MEDS: ASPIRIN 81 MG ENTERIC TAB PO SCH (08:47)
[2018-12-07] MEDS: CYANOCOBALAMIN 500 MCG TAB PO SCH (08:47)
[2018-12-07] MEDS: FERROUS GLUCONATE 324 MG TAB PO SCH ×3 (08:47→18:15)
[2018-12-07] MEDS: GABAPENTIN 300 MG CAP PO SCH ×3 (08:47→20:37)
[2018-12-07] MEDS: OMEPRAZOLE 20 MG CAP PO SCH ×2 (08:47→20:37)
[2018-12-07] MEDS: FUROSEMIDE 40 MG/4 ML VIAL (J1940) IV SCH ×2 (08:48→20:37)
[2018-12-07] MEDS: oxyBUTYnin *DITROPAN XL* 5 MG TABCR PO SCH (08:49)
[2018-12-07] MEDS: METOPROLOL SUCC *XL* 25MG TAB (TopROL *XL*) PO SCH (08:49)
[2018-12-07] MEDS: MULTIVITAMINS/MINERALS THERAP 1 TAB PO SCH (08:49)
[2018-12-07] MEDS ORDERED: ENOXAPARIN 40 MG/0.4 ML SYRINGE (J1650) SC SCH (09:00)
[2018-12-07 09:37] LABS: CORTISOL PM 10.1 UG/DL (3.1-16.7)
[2018-12-07 12:00] VITALS: BP 130/69
[2018-12-07] MEDS: FLUoxetine 20 MG CAP PO SCH (12:07)
[2018-12-07] MEDS: MAGNESIUM CHLORIDE 64 MG TABCR (SLO MAG) PO SCH (12:07)
[2018-12-07 16:00] VITALS: BP 91/52
[2018-12-07] MEDS ORDERED: WARFARIN SOD 2 MG TAB PO SCH (17:00)
--- NOTE | 2018-12-07 17:57 | IPNPDOC ---
Text Note Date of Service The patient was seen on 12/07/18. NOTE Mr. Frances is seen on bedside rounds this morning. He doesn't look comfortable. He states he is very cold, he appears pale. He states his breathing is doing okay, he is frustrated with being in an ED room overnight due to bed availability upstairs. He denies CP, he thinks the swelling in his legs is improved. He is thirsty, wants some more kosta carmel. No heart palpitations, no n/v. He didn't sleep well last night. ROS: 12 point ROS was reviewed and negative except for above pertinent findings PE: Vitals: See below General: Elderly 73 yo male, appears pale, uncomfortable, sitting in bedside chair with blankets up to his chin, speaking in full sentences, non-labored b reathing, is fatigued appearing, his nightgown is unbuttoned and he is cold HEENT: Pale appearing conjunctiva b/l, dry mucus membranes, minimal elevation in JVD, tongue midline Cardiac: Normal s1 and s1, no murmurs rubs or gallops appreciated Resp: Fine velcro crackles throughout, no rales or rhonchi or wheezing appreciated Abdomen: Soft, obese, non-distended, no hepatosplenomegaly, no masses latrell reciated, nabsx4, no rebound ridgity or guarding Extremities: +1 edema b/l LE, improved from yesterday, no cyanosis or mottling appreciated. right elbow has small superficial abrasion which has dried blood around it, elbow joint is not swollen or bruised, the pt states he slipped from his chair this morning when trying to reach for blanket on his bed PLAN: 1. SOB secondary to HCAP and CHF exacerbation-possibly E. Coli PNA -He is being diuresed with Lasix IV 40 BID, he has sustained an CATHY likely secondary to this, however will continue current dose for now, he has put out over 1 L fluid in past 24 hours, he still appears a bit volume overloaded on PE today -He was a bit febrile on exam today, have given tylenol and repeated lactic acid which was 2.0, increased from .8 yesterday -his BNP was elevated compare to prior hospitalization, his CXR showed concern for left sided upper/lower infiltrate -he has been hospitalized recently so will c/w tx for HCAP, sputum sensitivities in past positive for E. coli, he will be covered on IV Zosyn and Vancomycin -blood cx pending neg after 24 hours x2, u cx pending, u/a showed some blood/RBC -normal PM cortisol and ACTH level still pending, some concern over adrenal insufficiency and low BP on last visit- if BP continues to be soft, could consider stress dosing of steroids -Last ECHO October 2018 showed preserved LV function with pulmonary HTN and elevated CVP 2. DM2 -SS Insulin with hypoglycemic protocol 3. DLP -c/w home medications 4. HTN -c/w home medications w/ hold parameters in light of soft bp 5. A fib on Coumaden -INR improved, 3.89 today -his INR was supRAtherapeutic on presentation, last night dose of Coumadin was held, will hold tonights dose as well, monitor INR daily, can consider decreasing dose beginning tomorrow by 10%- so pt should get about 18 mg Coumadin weekly total then 6. COPD & ILD -c/w home inhalers 7. Gout -c/w Uloric, pt allergic to allopurinol 8. CBP -c/w PO pain medications 9. BPH -c/w home flomax 10. Slip/ fall right superficial skin laceration of right elbow -on PE there is no bruising, swelling or erythema, small superficial laceration with dried blood, I have changed the bandaid, hemostasis has been achieved and it is no longer actively bleeding, he has good ROM of the right elbow, monitor for now, do not suspect fracture, the pt did not sustain LOC or hit his head, he states he slid a bit off his chair and scraped his elbow trying to reach for a blanket 11. DVT px -on Coumadin VS,Fishbone, I+O VS, Fishbone, I+O Laboratory Tests 12/07/18 06:46 Red Blood Count 3.18 L, Mean Corpuscular Volume 94.0, Mean Corpuscular Hemoglobin 28.9, Mean Corpuscular Hemoglobin Concent 30.8 L, Red Cell Distribution Width 17.4 H, Neutrophils (%) (Auto) 61.4, Lymphocytes (%) (Auto) 12.5 L, Monocytes (%) (Auto) 19.0 H, Eosinophils (%) (Auto) 6.1 H, Basophils (%) (Auto) 0.8, Neutrophils # (Auto) 3.1, Lymphocytes # (Auto) 0.6 L, Monocytes # (Auto) 1.0 H, Eosinophils # (Auto) 0.3, Basophils # (Auto) 0.0, Calcium Level 8.7 L Vital Signs Date Time Temp Pulse Resp B/P (MAP) Pulse Ox O2 Delivery O2 Flow Rate FiO2 12/07/18 16:00 98.7 69 19 91/52 (65) 93 3.0 12/06/18 18:04 Nasal Cannula I&O- Last 24 Hours up to 6 AM 12/07/18 06:00 Intake Total 640 ml Output Total 2150 ml Balance -1510 ml GME ATTESTATION GME ATTESTATION My faculty preceptor for this patient encounter was physically present during the encounter and was fully available. All aspects of the patient interview, examination, medical decision making process, and medical care plan development were reviewed and approved by the faculty preceptor. The faculty preceptor is aware and concurs with the plan as stated in the body of this note and will attest to such by his/her cosignature. ATTENDING NOTE I, Jessica Nj, have both independently examined this patient as well as reviewed the documentation. I have discussed in detail with the resident the findings and plan of treatment as documented in the residents documentation and I agree with what is stated. I will continue to follow the patient and offer further guidance to the patients care as necessary during this hospital stay. KELLY CARTER DO Dec 07, 2018 17:57 JESSICA NJ MD Dec 07, 2018 20:45
[2018-12-07 20:00] VITALS: BP 101/57
[2018-12-07] MEDS: ATORVASTATIN 20 MG TAB PO SCH (20:37)
[2018-12-07] MEDS: TAMSULOSIN 0.4 MG CAP PO SCH (20:37)
[2018-12-07] MEDS: MIRTAZAPINE 15 MG TAB PO SCH (20:37)
--- NOTE | 2018-12-07 23:28 | PHACANCOPD ---
PHARMACY VANCOMYCIN DOSING Pt Demographics Demographics Patient Age:73 , Weight:116.360 , Gender: male Adjusted Body Weight Date: 12/06/18, Adjusted Body Weight: Kg Events Past 24 Hours Events Past 24 Hours: NO: Dialysis, Diuretic Therapy, Change in CrCl, Fever, Elevation in WBC, Pending Diagnostics, Pending Procedures, Other Vancomycin Vancomycin Target Ranges: 15-20 mcg/ml Vancomycin Load Y/N: Yes Load Dose Date Time Vancomycin Load Dose: 2000mg Date: 12-07 Time: 0000 Vancomycin Dose Date: 12/07/18. Current Vancomycin Dose: [1000mg q12h] Intermittent Dosing?: No Labs Labs Vital Signs Label Value Date Time Patient Temperature 97.9 degrees F 12/07/181999 Temperature Source Temporal 12/07/181999 Item Value Date Time White Blood Count 5.1 10^3/uL 12/07/18645 Glomerular Filtration Rate 56.1 12/07/18 0646 Creatinine 1.33 MG/DL H 12/07/1846 Blood Urea Nitrogen 20 MG/DL H 12/07/18 0646 Vancomycin Level Trough 16.1 UG/ML 12/07/18 2244 Micro Microbiology 12/06/18 Blood Culture - Preliminary, Resulted No growth after 24 hours . All specim... 12/06/18 Blood Culture - Preliminary, Resulted No growth after 24 hours . All specim... 12/06/18 Urine Culture, Received Pending Creatinine Clearance Date:12/07/18. Creatinine Clearance: [~50]. Assessment and Plan Maintaining Current Dose?: Yes Reason for dose change: No Dose Change Pharmacist Note Pharmacist Note Date: 12/07/18. Pharmacist note:Trough of 16.1 is within target range. Will continue current dosing. Will continue to monitor and make adjustments as needed. JEN WINN PHARMACY Dec 07, 2018 23:28
[2018-12-08] VITALS (8 sets, daily range): BP systolic 87–148; BP diastolic 52–72
[2018-12-08] MEDS: PIPERACILLIN/TAZOBACTAM SOD 3.375 GM in D5W MINI-BAG PLUS 50 ML IV SCH ×4 (04:16→21:49)
[2018-12-08] MEDS: NORCO, ANEXSIA 5/325MG TABLET (HYDROcodone/ACETAMINOPHEN) PO PRN ×3 (04:21→20:17)
[2018-12-08] MEDS: ALBUTEROL SULFATE 2.5 MG/0.5 ML INH NEB SOLN INH PRN (04:58)
[2018-12-08 06:02] LABS: BASO % 0.6 % (0.0-1.0); EOS # 0.3 10^3/uL (0.0-0.50); EOS % 6.3 % (0.0-3.0); HEMATOCRIT 25.5 % (42.0-52.0); LYMPH # 0.7 10^3/uL (1.5-4.5); LYMPH % 13.2 % (24.0-44.0); MEAN CORPUSCULAR HEMOGLOBIN 28.1 pg (27.0-33.0); MEAN CORPUSCULAR HGB CONC 31.4 g/dl (32.0-36.5); MEAN CORPUSCULAR VOLUME 89.5 fl (80.0-96.0); MONO # 0.9 10^3/uL (0.0-0.8); MONO % 16.5 % (0.0-5.0); NEUTROPHILS # 3.3 10^3/uL (1.8-7.7); NEUTROPHILS % 63.2 % (36.0-66.0); PLATELET COUNT, AUTOMATED 151 10^3/uL (150-450); RED BLOOD COUNT 2.85 10^6/uL (4.30-6.10); WHITE BLOOD COUNT 5.2 10^3/uL (4.0-10.0)
[2018-12-08 06:09] LABS: INR 3.95; PROTHROMBIN TIME 39.6 SECONDS (12.1-14.4)
[2018-12-08 06:19] LABS: CALCIUM LEVEL 7.8 MG/DL (8.8-10.2); CREATININE FOR GFR 1.62 MG/DL (0.70-1.30); GLOMERULAR FILTRATION RATE 44.7 (>42); POTASSIUM SERUM 3.4 MEQ/L (3.5-5.1)
[2018-12-08] MEDS ORDERED: POTASSIUM CHLORIDE 10 MEQ SR TABLET PO ONE (07:15)
[2018-12-08] MEDS: HumaLOG INSULIN (NovoLOG) PER UNIT SC SCH ×4 (07:30→20:30)
[2018-12-08] MEDS: oxyBUTYnin *DITROPAN XL* 5 MG TABCR PO SCH (09:45)
[2018-12-08] MEDS: OMEPRAZOLE 20 MG CAP PO SCH ×2 (09:46→20:16)
[2018-12-08] MEDS: FEBUXOSTAT 40 MG TABLET (ULORIC) PO SCH (09:46)
[2018-12-08] MEDS: SPIRONOLACTONE 25 MG TAB PO SCH (09:46)
[2018-12-08] MEDS: ASPIRIN 81 MG ENTERIC TAB PO SCH (09:46)
[2018-12-08] MEDS: GABAPENTIN 300 MG CAP PO SCH ×3 (09:47→20:17)
[2018-12-08] MEDS: MULTIVITAMINS/MINERALS THERAP 1 TAB PO SCH (09:47)
[2018-12-08] MEDS: CYANOCOBALAMIN 500 MCG TAB PO SCH (09:49)
[2018-12-08] MEDS: METOPROLOL SUCC *XL* 25MG TAB (TopROL *XL*) PO SCH (10:00)
--- NOTE | 2018-12-08 11:02 | IPNPDOC ---
Date Seen The patient was seen on 12/08/18. Progress Note SUBJECTIVE: Mr. Frnaces is seen on bedside rounds this morning. He states that he is feeling better today, is less fatigued, and wishes to be taken off bed rest so he can sit in his chair. His low back pain which is chronic for him is bothering him, he would like his pain mediations. He states that he couldn't get warm last night and that he had chills. He states his breathing is doing better than yesterday and that he only has dyspnea on exertion. He reports coughing up brown sputum. He denies CP, he thinks the swelling in his legs is improved. He reports a little constipation. He denies nausea, vomiting, sweating, and headaches. OBJECTIVE PHYSICAL EXAMINATION: VITAL SIGNS: Please see below. General: Elderly 73 yo male, appears pale, sitting on edge of bed, speaking in full sentences, non-labored breathing, no acute distress HEENT: Pale appearing conjunctiva b/l, dry mucus membranes, minimal elevation in JVD, tongue midline Cardiac: Normal s1 and s1, no murmurs rubs or gallops appreciated Resp: Fine velcro crackles throughout, no rales or rhonchi or wheezing appreciated Abdomen: Soft, obese, non-distended, no hepatosplenomegaly, no masses appreciated, nabsx4, no rebound rigidity or guarding Extremities: +1 edema b/l LE, improved from yesterday, no cyanosis or mottling appreciated. right elbow has small superficial abrasion which has dried blood around it, elbow joint is not swollen or bruised, the pt states he slipped from his chair yesterday morning when trying to reach for blanket on his bed LABORATORY DATA, IMAGING STUDIES, MICROBIOLOGY: Please see below. IMAGING: CXR: New infiltrates left upper and lower lung zones. Compatible with pneumonia MICROBIOLOGY: - Sputum culture: pending - Urine culture: no growth - Blood culture: no growth after 24 hours x2 DVT prophylaxis ordered?: Coumadin ASSESSMENT AND PLAN: This is a 73-year-old male with sob, cough productive of brown sputum with recent Hx of E. coli pneumonia and CHF exacerbation PROBLEMS: 1. SOB secondary to HCAP and CHF exacerbation-possibly E. Coli PNA -He is being diuresed with Lasix IV 40 BID, he has sustained an CATHY likely secondary to this, Cr is worse today for his history of Lupus nephritis we have consulted Nephrology, we appreciate his assistance - he has put out over 1.5 L fluid in past 24 hours, he still appears a bit volume overloaded on PE today but definitely improving -BUN today 22 up from 20 yesterday, Cr today was 1.62 up from 1.33 yesterday -his BNP was elevated compare to prior hospitalizations, his CXR showed concern for left sided upper/lower infiltrate -c/w IV Zosyn and Vancomycin -blood cx pending neg after 24 hours x2, u cx showed no growth, u/a showed some blood/RBC -sputum culture pending but so far: many wbcs, few epithelial cells, few gram positive cocci in pairs and chains, few gram negative rods and few yeast like organisms, he has had E. Coli positive in the past, he is being covered by abx. tx for this, can consider PO abx soon -normal PM cortisol and ACTH level still pending, some concern over adrenal insufficiency and low BP on last visit -Last ECHO October 2018 showed preserved LV function with pulmonary HTN and elevated CVP -His BP was a bit soft today, likely 2/2 diuresis, cautious use of pain medication for pt for CBP 2. DM2 -SS Insulin with hypoglycemic protocol 3. DLP -c/w home medications 4. HTN -c/w home medications w/ hold parameters in light of soft bp 5. A fib on Coumaden -INR 3.95 today -his INR was supRAtherapeutic on presentation, Coumadin was held two nights ago, will d/c for now, monitor INR daily-restart once therapeutic inr - can consider decreasing dose by 10%- so pt should get about 18 mg Coumadin weekly total then once therapeutic INR achieved 6. COPD & ILD -c/w home inhalers 7. Gout -c/w Uloric, pt allergic to allopurinol 8. CBP -We have to hold pain medications temporarily in light of soft BP 9. BPH -c/w home flomax 10. Slip/ fall right superficial skin laceration of right elbow -on PE there is no bruising, swelling or erythema, small superficial laceration with dried blood, do not suspect fracture, the pt did not sustain LOC or hit his head, he states he slid a bit off his chair in the ED and scraped his elbow trying to reach for a blanket-monitor for now 11. Hx of Lupus nephritis -Nephrology has been consulted, appreciate their help, to see the pt in AM 11. DVT px -on Coumadin DISPOSITION: Patient reports improvement clinically today in breathing/sob and swelling in LE. He requests to be taken off bed rest so he can sit in his chair. He reports some sob on exertion and cough productive of brown sputum. His back is hurting. Sputum culture pending. Will c/w Vancomycin and Zosyn for possible E. coli pneumonia. BUN 22, Cr 1.62 today. Have consulted Nephrology for help in lupus nephritis. D.c coumadin for now, monitor INR, begin when therapeutic. VS, I&O, 24H, Fishbone Vital Signs/I&O Vital Signs Date Time Temp Pulse Resp B/P (MAP) Pulse Ox O2 Delivery O2 Flow Rate FiO2 12/08/18 10:00 73 87/52 12/08/18 08:00 99.0 18 95 3.0 12/06/18 18:04 Nasal Cannula I&O- Last 24 Hours up to 6 AM 12/08/18 05:59 Intake Total 1350 ml Output Total 2300 ml Balance -950 ml Laboratory Data 24H LABS Laboratory Tests 2 12/07/18 12:11: Lactic Acid Level 2.0 12/07/18 16:58: Bedside Glucose (Misc Panel) 111H 12/07/18 20:34: Bedside Glucose (Misc Panel) 92 12/07/18 22:44: Vancomycin Level Trough 16.1 12/08/18 05:40: Immature Granulocyte % (Auto) 0.2, White Blood Count 5.2, Red Blood Count 2.85L, Hemoglobin 8.0L, Hematocrit 25.5L, Mean Corpuscular Volume 89.5, Mean Corpuscular Hemoglobin 28.1, Mean Corpuscular Hemoglobin Concent 31.4L, Red Cell Distribution Width 17.2H, Platelet Count 151, Neutrophils (%) (Auto) 63.2, Lymphocytes (%) (Auto) 13.2L, Monocytes (%) (Auto) 16.5H, Eosinophils (%) (Auto) 6.3H, Basophils (%) (Auto) 0.6, Neutrophils # (Auto) 3.3, Lymphocytes # (Auto) 0.7L, Monocytes # (Auto) 0.9H, Eosinophils # (Auto) 0.3, Basophils # (Auto) 0.0, Nucleated Red Blood Cells % (auto) 0.0, Prothrombin Time 39.6H, Prothromb Time International Ratio 3.95, Anion Gap 4L, Glomerular Filtration Rate 44.7, Blood Urea Nitrogen 22H, Creatinine 1.62H, Sodium Level 133L, Potassium Level 3.4L, Chloride Level 96L, Carbon Dioxide Level 33H, Calcium Level 7.8L CBC/BMP Laboratory Tests 12/08/18 05:40 Red Blood Count 2.85 L, Mean Corpuscular Volume 89.5, Mean Corpuscular Hemoglobin 28.1, Mean Corpuscular Hemoglobin Concent 31.4 L, Red Cell Distribution Width 17.2 H, Neutrophils (%) (Auto) 63.2, Lymphocytes (%) (Auto) 13.2 L, Monocytes (%) (Auto) 16.5 H, Eosinophils (%) (Auto) 6.3 H, Basophils (%) (Auto) 0.6, Neutrophils # (Auto) 3.3, Lymphocytes # (Auto) 0.7 L, Monocytes # (Auto) 0.9 H, Eosinophils # (Auto) 0.3, Basophils # (Auto) 0.0, Calcium Level 7.8 L Microbiology Microbiology 12/06/18 Blood Culture - Preliminary, Resulted No growth after 24 hours . All specim... 12/06/18 Blood Culture - Preliminary, Resulted No growth after 24 hours . All specim... 12/08/18 Gram Stain - Final, Resulted 12/08/18 Sputum Culture, Resulted Pending 12/06/18 Urine Culture - Final, Complete GME ATTESTATION GME ATTESTATION My faculty preceptor for this patient encounter was physically present during the encounter and was fully available. All aspects of the patient interview, examination, medical decision making process, and medical care plan development were reviewed and approved by the faculty preceptor. The faculty preceptor is aware and concurs with the plan as stated in the body of this note and will attest to such by his/her cosignature. ATTENDING NOTE I, Jessica Marcial, have independently examined this patient and performed my own physical exam, as well as reviewed the documentation and edited where necessary. I have discussed in detail with the resident / student the findings and plan of treatment as documented by the resident / student and edited their note. I agree with their findings and treatment plan and have edited their documentation. I will continue to follow the patient during this hospital stay. BELINDA LAW OMS-3 Dec 08, 2018 11:02 JESSICA MARCIAL MD Dec 08, 2018 13:20 KELLY CARTER DO Dec 08, 2018 13:50
[2018-12-08] MEDS: FLUoxetine 20 MG CAP PO SCH (12:50)
[2018-12-08] MEDS: MAGNESIUM CHLORIDE 64 MG TABCR (SLO MAG) PO SCH (12:54)
[2018-12-08] MEDS ORDERED: SLF 3 ML SYR IV PRN (14:30)
[2018-12-08] MEDS: FERROUS GLUCONATE 324 MG TAB PO SCH (18:01)
[2018-12-08] MEDS: TAMSULOSIN 0.4 MG CAP PO SCH (20:16)
[2018-12-08] MEDS: VANCOMYCIN HCL 1,000 MG, VIAL MATE ADAPTER 1 EACH in D5W 250 ML IV SCH (20:18)
[2018-12-08] MEDS: MIRTAZAPINE 15 MG TAB PO SCH (20:18)
[2018-12-08] MEDS: ATORVASTATIN 20 MG TAB PO SCH (20:18)
[2018-12-08] MEDS: SLF 3 ML SYR IV SCH (20:31)
[2018-12-08] MEDS: ENTRESTO 24-26MG TABLET (SACUBITRIL/VALSARTAN) PO SCH (20:31)
[2018-12-09] VITALS (7 sets, daily range): BP systolic 97–140; BP diastolic 55–81
[2018-12-09] MEDS: PIPERACILLIN/TAZOBACTAM SOD 3.375 GM in D5W MINI-BAG PLUS 50 ML IV SCH ×4 (03:52→22:01)
[2018-12-09] MEDS: ALBUTEROL SULFATE 2.5 MG/0.5 ML INH NEB SOLN INH PRN (04:42)
[2018-12-09] MEDS: SLF 3 ML SYR IV SCH ×3 (05:45→22:00)
[2018-12-09 05:50] LABS: BASO % 0.4 % (0.0-1.0); EOS # 0.3 10^3/uL (0.0-0.50); EOS % 5.9 % (0.0-3.0); HEMATOCRIT 25.1 % (42.0-52.0); HEMOGLOBIN 7.9 g/dl (13.5-17.5); LYMPH # 0.9 10^3/uL (1.5-4.5); LYMPH % 15.7 % (24.0-44.0); MEAN CORPUSCULAR HEMOGLOBIN 28.9 pg (27.0-33.0); MEAN CORPUSCULAR HGB CONC 31.5 g/dl (32.0-36.5); MEAN CORPUSCULAR VOLUME 91.9 fl (80.0-96.0); MONO % 17.5 % (0.0-5.0); NEUTROPHILS # 3.3 10^3/uL (1.8-7.7); NEUTROPHILS % 60.1 % (36.0-66.0); PLATELET COUNT, AUTOMATED 171 10^3/uL (150-450); RED BLOOD COUNT 2.73 10^6/uL (4.30-6.10); WHITE BLOOD COUNT 5.4 10^3/uL (4.0-10.0)
[2018-12-09 05:58] LABS: INR 3.38; PROTHROMBIN TIME 34.2 SECONDS (11.8-14.0)
[2018-12-09] MEDS: NORCO, ANEXSIA 5/325MG TABLET (HYDROcodone/ACETAMINOPHEN) PO PRN ×2 (05:58→16:47)
[2018-12-09 06:00] LABS: CALCIUM LEVEL 7.5 MG/DL (8.8-10.2); CREATININE FOR GFR 1.54 MG/DL (0.70-1.30); GLOMERULAR FILTRATION RATE 47.4 (>42); POTASSIUM SERUM 3.6 MEQ/L (3.5-5.1)
[2018-12-09] MEDS: HumaLOG INSULIN (NovoLOG) PER UNIT SC SCH ×4 (07:07→21:00)
[2018-12-09] MEDS: CYANOCOBALAMIN 500 MCG TAB PO SCH (08:14)
[2018-12-09] MEDS: FEBUXOSTAT 40 MG TABLET (ULORIC) PO SCH (08:14)
[2018-12-09] MEDS: OMEPRAZOLE 20 MG CAP PO SCH ×2 (08:14→21:58)
[2018-12-09] MEDS: GABAPENTIN 300 MG CAP PO SCH ×3 (08:14→21:59)
[2018-12-09] MEDS: MULTIVITAMINS/MINERALS THERAP 1 TAB PO SCH (08:15)
[2018-12-09] MEDS: ASPIRIN 81 MG ENTERIC TAB PO SCH (08:15)
[2018-12-09] MEDS: oxyBUTYnin *DITROPAN XL* 5 MG TABCR PO SCH (08:15)
[2018-12-09] MEDS: FERROUS GLUCONATE 324 MG TAB PO SCH ×2 (08:15→17:33)
[2018-12-09] MEDS: SPIRONOLACTONE 25 MG TAB PO SCH (08:15)
[2018-12-09] MEDS: METOPROLOL SUCC *XL* 25MG TAB (TopROL *XL*) PO SCH (08:31)
[2018-12-09] MEDS ORDERED: guaiFENesin ER 600 MG TAB PO PRN (09:45)
[2018-12-09 10:05] LABS: PERCENT SATURATION 10.5 % (19.7-50.0)
--- NOTE | 2018-12-09 10:27 | IPNPDOC ---
Date Seen The patient was seen on 12/09/18. Progress Note SUBJECTIVE: Mr. Frances is seen on bedside rounds this morning sitting in his chair. He reports several episodes of shortness of breath last night and into rn informatics that was different than his normal dyspnea on exertion. The sob improved with a breathing treatment. He reports that he is still a little short of breath today. He thinks his coughing is getting worse and more frequent which is productive of brown sputum, denies blood in sputum. His low back pain which is chronic is still bothering him, he would like his pain medications now. He states that his chills have gotten better from yesterday and denies fever or sweating. He states he is more fatigued and tired today. He states that the swelling in his legs is improved today. He denies cp, nausea, vomiting, and headaches. OBJECTIVE PHYSICAL EXAMINATION: VITAL SIGNS: Please see below. General: 73 yo male, appears pale, sitting in chair, speaking in full sentences, non-labored breathing, no acute distress HEENT: Pale appearing conjunctiva b/l, dry mucus membranes, minimal elevation in JVD, tongue midline Cardiac: Normal s1 and s1, no murmurs rubs or gallops appreciated Resp: Fine velcro crackles throughout, no rales or rhonchi or wheezing appreciated Abdomen: Soft, obese, non-distended, no hepatosplenomegaly, no masses appreciated, nabsx4, no rebound rigidity or guarding Extremities: +1 edema b/l LE, improved from yesterday, no cyanosis or mottling appreciated. Right elbow has small superficial abrasion which has dried blood around it, elbow joint is not swollen or bruised, the pt states he slipped from his chair two mornings ago when trying to reach for blanket on his bed in ED Skin: irritation rash present on left abdomen, mild erythema, no pain on palpation or purulent debris LABORATORY DATA, IMAGING STUDIES, MICROBIOLOGY: Please see below. IMAGING: CXR: New infiltrates left upper and lower lung zones. Compatible with pneumonia MICROBIOLOGY: - Sputum culture Preliminary report: many yeast-like organisms - Urine culture: no growth - Blood culture: no growth after 48 hours x2 DVT prophylaxis ordered?: Coumadin ASSESSMENT AND PLAN: This is a 73-year-old male with sob, cough productive of br own sputum with recent Hx of E. coli pneumonia and CHF exacerbation PROBLEMS: 1. SOB secondary to HCAP and CHF exacerbation-possibly E. Coli PNA -He is being diuresed with Lasix IV 40 BID, he has sustained an CATHY likely secondary to this, history of Lupus nephritis we have consulted Nephrology, we appreciate his assistance-changing to Torsemide today, d/c lasix - Fluid restriction, 1800 ccs/day. - Spoke with Nephrology, agree with stress dosing of steroids and diuresis - He still appears a bit volume overloaded on PE today but definitely improving -BUN today 23 up from 22 yesterday, Cr today was 1.54, 1.62 yesterday -his BNP was elevated compare to prior hospitalizations, his CXR showed concern for left sided upper/lower infiltrate -c/w IV Zosyn and Vancomycin - Start on Mucinex to help with excretions -blood cx pending neg after 48 hours x2, u cx showed no growth, u/a showed some blood/RBC -sputum culture pending but so far: many wbcs, few epithelial cells, few gram positive cocci in pairs and chains, few gram negative rods and few yeast like organisms, he has had E. Coli positive in the past, he is being covered by abx. Preliminary report: many yeast-like organisms. tx for this-begin fluconazole -normal PM cortisol and ACTH level, his cortisol should be higher than it is g iven his current status, will stress dose hydrocortisone now-there was some concern over adrenal insufficiency and low BP on last visit - Stress dosing with hydrocortisone as discussed above, hopefully this will improve his BP -Last ECHO October 2018 showed preserved LV function with pulmonary HTN and elevated CVP -His BP was a bit soft today again, likely 2/2 diuresis, cautious use of pain medication for pt for CBP-stress dose steroids now 2. Anemia - H/h today 7.9/25.1, will monitor 3. Skin rash on left abdomen - No signs of infection or pain on palpation - Could benefit from nystatin powder which we will start today 4. DM2 -SS Insulin with hypoglycemic protocol 5. DLP -c/w home medications 6. HTN -c/w home medications w/ hold parameters in light of soft bp 7. A fib on Coumaden -INR 3.38 today -his INR was supRAtherapeutic on presentation, Coumadin was held three nights ago, d/c for now, monitor INR daily-restart once therapeutic INR - can consider decreasing dose by 10%- so pt should get about 18 mg Coumadin weekly total then once therapeutic INR achieved 8. COPD & ILD -c/w home inhalers 9. Gout -c/w Uloric, pt allergic to allopurinol 10. CBP -We have to hold pain medications temporarily in light of soft BP 11. BPH -c/w home flomax 12. Slip/ fall right superficial skin laceration of right elbow -on PE there is no bruising, swelling or erythema, small superficial laceration with dried blood, do not suspect fracture, the pt did not sustain LOC or hit his head, he states he slid a bit off his chair in the ED and scraped his elbow trying to reach for a blanket-monitor for now 13. Hx of Lupus nephritis -Nephrology has been consulted, appreciate their help, to see the pt today 14. DVT px -d/c Coumadin DISPOSITION: Patient reports episodes of sob overnight requiring a breathing treatment. He states that his coughing is worse today and productive of brown sp utum. He reports improvement in chills and LE edema. His back is hurting. Will c/w Vancomycin and Zosyn for possible E. coli pneumonia. Will add Mucinex for excretions, fluconazole for yeast organism in sputum. Stress dosing with hydrocortisone today, hopefully will increase his BP. BUN 23, Cr 1.54 today. H/h 7.9/25.1, will monitor. Fluid restriction to 1800 ccs/day. Spoke with Nephrology, agree with stress dosing of hydrocortisone and diuresis, s/p lasix, beginning Torsemide. Rash on left abdomen could benefit from nystatin powder. D.c Coumadin for now, monitor INR, begin when therapeutic again. VS, I&O, [facility] Vital Signs/I&O Vital Signs Date Time Temp Pulse Resp B/P (MAP) Pulse Ox O2 Delivery O2 Flow Rate FiO2 12/09/18 08:31 73 97/55 12/09/18 08:00 4.0 12/09/18 08:00 98.0 16 96 12/06/18 18:04 Nasal Cannula I&O- Last 24 Hours up to 6 AM 12/09/18 06:00 Intake Total 1630 ml Output Total 750 ml Balance 880 ml Laboratory Data 24H LABS Laboratory Tests 2 12/08/18 10:58: Vancomycin Level Trough 22.0H 12/08/18 12:14: Bedside Glucose (Misc Panel) 112H 12/08/18 17:10: Bedside Glucose (Misc Panel) 111H 12/08/18 20:26: Bedside Glucose (Misc Panel) 102 12/09/18 05:32: Immature Granulocyte % (Auto) 0.4, White Blood Count 5.4, Red Blood Count 2.73L, Hemoglobin 7.9L, Hematocrit 25.1L, Mean Corpuscular Volume 91.9, Mean Corpuscular Hemoglobin 28.9, Mean Corpuscular Hemoglobin Concent 31.5L, Red Cell Distribution Width 17.3H, Platelet Count 171, Neutrophils (%) (Auto) 60.1, Lymphocytes (%) (Auto) 15.7L, Monocytes (%) (Auto) 17.5H, Eosinophils (%) (Auto) 5.9H, Basophils (%) (Auto) 0.4, Neutrophils # (Auto) 3.3, Lymphocytes # (Auto) 0.9L, Monocytes # (Auto) 1.0H, Eosinophils # (Auto) 0.3, Basophils # (Auto) 0.0, Nucleated Red Blood Cells % (auto) 0.0, Prothrombin Time 34.2H, Prothromb Time International Ratio 3.38, Anion Gap 6L, Glomerular Filtration Rate 47.4, Blood Urea Nitrogen 23H, Creatinine 1.54H, Sodium Level 131L, Potassium Level 3.6, Chloride Level 96L, Carbon Dioxide Level 29, Calcium Level 7.5L CBC/BMP Laboratory Tests 12/09/18 05:32 Red Blood Count 2.73 L, Mean Corpuscular Volume 91.9, Mean Corpuscular Hemoglobin 28.9, Mean Corpuscular Hemoglobin Concent 31.5 L, Red Cell Distribution Width 17.3 H, Neutrophils (%) (Auto) 60.1, Lymphocytes (%) (Auto) 15.7 L, Monocytes (%) (Auto) 17.5 H, Eosinophils (%) (Auto) 5.9 H, Basophils (%) (Auto) 0.4, Neutrophils # (Auto) 3.3, Lymphocytes # (Auto) 0.9 L, Monocytes # (Auto) 1.0 H, Eosinophils # (Auto) 0.3, Basophils # (Auto) 0.0, Calcium Level 7.5 L Microbiology Microbiology 12/06/18 Blood Culture - Preliminary, Resulted No Growth after 48 hours. All Specime... 12/06/18 Blood Culture - Preliminary, Resulted No Growth after 48 hours. All Specime... 12/08/18 Gram Stain - Final, Resulted 12/08/18 Sputum Culture - Preliminary, Resulted Yeast Like Organism 12/06/18 Urine Culture - Final, Complete GME ATTESTATION GME ATTESTATION My faculty preceptor for this patient encounter was physically present during the encounter and was fully available. All aspects of the patient interview, examination, medical decision making process, and medical care plan development were reviewed and approved by the faculty preceptor. The faculty preceptor is aware and concurs with the plan as stated in the body of this note and will attest to such by his/her cosignature. ATTENDING NOTE I, Jessica Marcial, have independently examined this patient and performed my own physical exam, as well as reviewed the documentation and edited where necessary. I have discussed in detail with the resident / student the findings and plan of treatment as documented by the resident / student and edited their note. I agree with their findings and treatment plan and have edited their documentation. I will continue to follow the patient during this hospital stay. BELINDA LAW OMS-3 Dec 09, 2018 10:27 KELLY CARTER DO Dec 09, 2018 13:04 JESSICA MARCIAL MD Dec 09, 2018 14:39
[2018-12-09] MEDS: HYDROCORTISONE 100 MG/2 ML VIAL (J1720) IV SCH ×3 (10:29→21:58)
[2018-12-09] MEDS: TORSEMIDE 20 MG TAB PO SCH ×2 (12:02→16:46)
[2018-12-09] MEDS: FLUoxetine 20 MG CAP PO SCH (12:03)
[2018-12-09] MEDS: MAGNESIUM CHLORIDE 64 MG TABCR (SLO MAG) PO SCH (12:03)
[2018-12-09] MEDS ORDERED: NYSTATIN 100,000 UNITS/GM TOPICAL PWD 15 GM TOP PRN (13:15)
[2018-12-09] MEDS: FLUCONAZOLE 100 MG TAB PO SCH (13:40)
[2018-12-09] MEDS: VANCOMYCIN HCL 1,000 MG, VIAL MATE ADAPTER 1 EACH in D5W 250 ML IV SCH (15:33)
[2018-12-09] MEDS ORDERED: WARFARIN SOD 3 MG TAB PO SCH (17:00)
[2018-12-09] MEDS ORDERED: DARBEPOETIN 100 MCG/0.5 ML *NON-DIALYSIS* SYRINGE (J0881) SC SCH (17:15)
[2018-12-09] MEDS ORDERED: IRON SUCROSE 200 MG in NS 100 ML IV SCH (18:00)
--- NOTE | 2018-12-09 18:12 | CR ---
DATE OF CONSULTATION: 12/09/2018 REQUESTING PHYSICIAN: Dr. Jessica Marcial. CONSULTING PHYSICIAN: Dr. Beltran. REASON FOR CONSULTATION: Management of chronic kidney disease stage III, lupus nephritis and optimization of fluid status. CHIEF COMPLAINT: Patient presented to the hospital on 12/06/2018 with shortness of breath and fevers. HISTORY OF PRESENT ILLNESS: Mr. Angel Frances is a 73-year-old man with past medical history of biopsy-proven lupus membranous nephropathy, chronic kidney disease stage III with a baseline creatinine of 1.3, history of systolic heart failure, atrial fibrillation, multiple other comorbidities including lupus lung involvement. He is well-known to nephrology service from multiple previous hospitalizations and from outpatient clinic. He follows up with myself. He was last seen on 11/30/2018 in the clinic. He presented to the emergency room on 12/06/2018 with progressive shortness of breath for three days along with fevers, chills, maximum temperature (T-max) of 101 degrees Fahrenheit. He was admitted under the hospitalist service with healthcare-associated pneumonia and decompensated congestive heart failure (CHF). He was given intravenous (IV) antibiotics and started on IV Lasix. His creatinine on admission was 1.2. It bumped up to 1.6 yesterday. The nephrology service was called for further help in the management of this patient. I saw and evaluated the patient today morning at the bedside. He was actually sitting in the sofa. He reports that his shortness of breath is slightly better today as compared with day of admission. He denies any fevers or chills. He does report lower extremity edema. PAST MEDICAL HISTORY: 1. Lupus membranous nephropathy, biopsy-proven. 2. Chronic kidney disease stage III. 3. 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 4. Atrial fibrillation on anticoagulation. 5. Diabetes mellitus type 2. 6. Coronary artery disease. 7. Benign prostatic hypertrophy (BPH). 8. Depression. 9. Diastolic congestive heart failure. PAST SURGICAL HISTORY: 1. History of bilateral cataract surgery at age 65. 2. History of bilateral knee replacement 3. History of coronary artery stenting at age 63. 4. Neck surgery due to spinal stenosis. 5. Cardiac catheterization. 6. Kidney biopsy in April 2017 PAST HOSPITALIZATIONS: He has been hospitalized multiple times because of pulmonary edema, healthcare-associated pneumonia and decompensated CHF. FAMILY HISTORY: No significant family history of end-stage renal disease requiring hemodialysis. There is positive family history of heart disease and pancreatic cancer in the mother SOCIAL HISTORY: Patient is . He lives with his granddaughter. He is retired and there is no nurse from [facility] [employer] [facility] who helps him with his medications. He is a former smoker. He denies any recent alcohol abuse. He use to drink heavily in the past. He denies any illicit drug abuse. REVIEW OF SYSTEMS: CONSTITUTIONAL: Patient reports feeling weak and tired. EYES: He denies any blurry vision, double vision. ENT: Denies any dysphagia, odynophagia, ear discharge. CARDIOVASCULAR: He does report shortness of breath and lower extremity edema. RESPIRATORY: He gives history of pulmonary fibrosis and shortness of breath and cough on arrival. GASTROINTESTINAL (GI): He denies any nausea, vomiting or diarrhea. GENITOURINARY: He denies any dysuria or hematuria. MUSCULOSKELETAL: Reports leg swelling. SKIN: He denies any rashes or ulcers. CENTRAL NERVOUS SYSTEM (PUBLICIST): He denies any neurological symptoms. PSYCHIATRIC: He denies any depression or anxiety at this point. ENDOCRINE: He denies any history of hyperthyroidism or hypothyroidism and he denies any history of diabetes. HEMATOLOGY/ONCOLOGY: Patient has anemia in chronic kidney disease. He is chronically on anticoagulation and he uses Procrit injections at home. PHYSICAL EXAMINATION GENERAL: Patient is awake, alert, oriented times three, sitting up in the sofa wearing nasal cannula. VITAL SIGNS: Temperature is 97.5 degrees Fahrenheit, blood pressure 101/58, pulse is 76, respiratory rate of 18, saturating 96% on nasal cannula at 5 liters. INTAKE AND OUTPUT: Urine output recorded is 1.5 liters yesterday; 300 mL so far today since overnight. Weight in the bed scale is 115.6 kg. HEAD AND NECK EXAM: Extraocular muscles intact. Pupils equally round and reactive to light. Mucous membranes are moist. Neck is supple. There is mildly elevated jugular venous distention (JVD). CARDIOVASCULAR: S1, S2. Regular rate. 1+ edema of the bilateral lower extremities. RESPIRATORY: Mildly decreased breath sounds at the bases with crepitations of deep inspiration all over the lungs because of pulmonary fibrosis. ABDOMEN: Obese, soft, positive bowel sounds. Nontender. No organomegaly. MUSCULOSKELETAL: No clubbing or cyanosis. Edema of the lower extremities as mentioned above. CENTRAL NERVOUS SYSTEM (PUBLICIST): No focal deficit. Power is 5/5 in all extremities. PSYCHIATRIC: Normal mood and affect. LABORATORY REVIEW: Complete blood count (CBC) showed a WBC of 5.4, hemoglobin 7.9, platelets of 171. Basic metabolic panel (BMP) showed sodium 131, potassium 3.6, chloride 96, bicarbonate 29, BUN 23, creatinine is 1.5, calcium 7.5. Iron is 27, transferrin saturation is 10.5%, ferritin is 632. MICROBIOLOGY: Blood cultures are negative. Urine culture is negative. IMAGING STUDIES: Chest x-ray done on arrival showed new infiltrates in left upper and lower lung zones compatible with pneumonia. CURRENT INPATIENT MEDICATIONS: He is on: - Zosyn 3.375 grams IV every 6 hours - vancomycin 1 gram IV every 18 hours - Entresto one tablet by mouth at bedtime - Tylenol one tablet as needed - albuterol as needed - aspirin 81 mg daily - Lipitor 20 mg at bedtime - vitamin B12 1000 mcg by mouth daily - Uloric 80 mg by mouth daily - iron tablets 324 mg by mouth twice a day - fluconazole 200 mg by mouth daily. - fluoxetine 80 mg by mouth daily - gabapentin 600 mg by mouth three times a day. - He is on hydrocortisone 25 mg IV every 6 hours - He is on insulin sliding scale - magnesium 64 mg by mouth once a day - metoprolol XL 25 mg by mouth daily - Remeron 30 mg at bedtime - multivitamin one tablet daily - Prilosec 40 mg by mouth twice a day - He was started on spironolactone 25 mg by mouth daily - Flomax 0.5 mg by mouth every evening - I have started the patient on torsemide at 20 mg by mouth twice a day - He is on trazodone 50 mg by mouth at bedtime - Coumadin is on hold because his latest INR was supratherapeutic ASSESSMENT: A 73-year-old male with baseline lupus membranous nephropathy, with chronic kidney disease stage III, lupus lung involvement, chronic diastolic congestive heart failure, admitted with shortness of breath secondary to healthcare-associated pneumonia and CHF exacerbation. PLAN: 1. Acute kidney injury superimposed on chronic kidney disease stage III. Patient presented with a normal baseline kidney function of 1.2. He was aggressively diuresed. Creatinine had bumped up to 1.6. His renal function is improving. His diuretics have stopped; however, because of lower extremity edema, I am going to restart the diuretics with a lower dose of torsemide 20 mg by mouth twice a day. Continue to monitor the renal function. It is okay to continue the Entresto at this point. 2. Hyponatremia. Patient has hypovolemic hyponatremia. Torsemide is being restarted. Continue the fluid restriction. 3. Iron-deficiency anemia. I am going to give the patient IV Venofer. No need of blood transfusion at this point. 4. Healthcare-associated pneumonia. Continue Zosyn 3.375 grams every 6 hours. Vancomycin level is supratherapeutic. Dose is being adjusted by pharmacology. 5. Decompensated diastolic congestive heart failure. Patient continues to be on low dose of Entresto one tablet by mouth daily. He is also on metoprolol 25 mg by mouth daily. Continue spironolactone 25 mg by mouth daily. I have started the patient on torsemide 20 mg by mouth twice a day. The rest of the dose adjustment will be done according to patient's response. 6. Atrial fibrillation. Heart rate is controlled with metoprolol. He is anticoagulated with Coumadin. INR is supratherapeutic. Coumadin is on hold. 7. Lupus lung involvement and chronic obstructive pulmonary disease (COPD). Patient is home oxygen dependent. Optimization of fluid status is with diuretics as mentioned above. Treatment of pneumonia is ongoing. 8. Lupus membranous nephropathy. Patient was initially started on CellCept, which he could not tolerate. Later on he was treated with cyclophosphamide and prednisone. Initially, he responded very well, but later on he gave developed pancytopenia. He was on prednisone in the past, which has been slowly tapered down. Patient is having recurrent infections, so he is not a candidate for any immunosuppression at this point. 9. 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 Continue current dose of Uloric 80 mg daily. Thank you for involving me in the care of this patient. I shall be happy to follow the patient along with you tomorrow morning.
[2018-12-09] MEDS: ENTRESTO 24-26MG TABLET (SACUBITRIL/VALSARTAN) PO SCH (21:00)
[2018-12-09] MEDS: TAMSULOSIN 0.4 MG CAP PO SCH (21:59)
[2018-12-09] MEDS: MIRTAZAPINE 15 MG TAB PO SCH (21:59)
[2018-12-09] MEDS: ATORVASTATIN 20 MG TAB PO SCH (21:59)
[2018-12-10] MEDS: NORCO, ANEXSIA 5/325MG TABLET (HYDROcodone/ACETAMINOPHEN) PO PRN ×4 (00:46→19:35)
[2018-12-10] MEDS: PIPERACILLIN/TAZOBACTAM SOD 3.375 GM in D5W MINI-BAG PLUS 50 ML IV SCH (03:43)
[2018-12-10] MEDS: HYDROCORTISONE 100 MG/2 ML VIAL (J1720) IV SCH ×3 (03:43→17:06)
[2018-12-10 04:00] VITALS: BP 144/79
[2018-12-10] MEDS: SLF 3 ML SYR IV SCH ×3 (06:03→22:21)
[2018-12-10 06:13] LABS: EOS % 0.6 % (0.0-3.0); HEMATOCRIT 25.7 % (42.0-52.0); HEMOGLOBIN 8.1 g/dl (13.5-17.5); LYMPH # 0.4 10^3/uL (1.5-4.5); LYMPH % 12.7 % (24.0-44.0); MEAN CORPUSCULAR HEMOGLOBIN 28.8 pg (27.0-33.0); MEAN CORPUSCULAR HGB CONC 31.5 g/dl (32.0-36.5); MEAN CORPUSCULAR VOLUME 91.5 fl (80.0-96.0); MONO # 0.3 10^3/uL (0.0-0.8); MONO % 8.6 % (0.0-5.0); NEUTROPHILS # 2.6 10^3/uL (1.8-7.7); NEUTROPHILS % 77.5 % (36.0-66.0); PLATELET COUNT, AUTOMATED 211 10^3/uL (150-450); RED BLOOD COUNT 2.81 10^6/uL (4.30-6.10); WHITE BLOOD COUNT 3.4 10^3/uL (4.0-10.0)
[2018-12-10 06:29] LABS: INR 2.93; PROTHROMBIN TIME 30.5 SECONDS (11.8-14.0)
[2018-12-10 06:33] LABS: CALCIUM LEVEL 8.2 MG/DL (8.8-10.2); CREATININE FOR GFR 1.33 MG/DL (0.70-1.30); GLOMERULAR FILTRATION RATE 56.1 (>42); POTASSIUM SERUM 3.9 MEQ/L (3.5-5.1)
[2018-12-10] MEDS: HumaLOG INSULIN (NovoLOG) PER UNIT SC SCH ×4 (07:09→21:00)
[2018-12-10 08:00] VITALS: BP 160/86
[2018-12-10] MEDS: CEFDINIR 300 MG CAP (OMNICEF) PO SCH ×2 (08:18→22:04)
[2018-12-10] MEDS: oxyBUTYnin *DITROPAN XL* 5 MG TABCR PO SCH (08:18)
[2018-12-10] MEDS: METOPROLOL SUCC *XL* 25MG TAB (TopROL *XL*) PO SCH (08:19)
[2018-12-10] MEDS: MULTIVITAMINS/MINERALS THERAP 1 TAB PO SCH (08:19)
[2018-12-10] MEDS: FERROUS GLUCONATE 324 MG TAB PO SCH ×2 (08:19→17:06)
[2018-12-10] MEDS: OMEPRAZOLE 20 MG CAP PO SCH ×2 (08:20→22:04)
[2018-12-10] MEDS: ASPIRIN 81 MG ENTERIC TAB PO SCH (08:20)
[2018-12-10] MEDS: SPIRONOLACTONE 25 MG TAB PO SCH (08:20)
[2018-12-10] MEDS: GABAPENTIN 300 MG CAP PO SCH ×3 (08:20→22:04)
[2018-12-10] MEDS: CYANOCOBALAMIN 500 MCG TAB PO SCH (08:20)
[2018-12-10] MEDS: TORSEMIDE 20 MG TAB PO SCH ×2 (08:20→16:11)
[2018-12-10] MEDS: FLUCONAZOLE 100 MG TAB PO SCH (08:20)
[2018-12-10] MEDS: FEBUXOSTAT 40 MG TABLET (ULORIC) PO SCH (08:21)
--- NOTE | 2018-12-10 11:23 | IPNPDOC ---
Date Seen The patient was seen on 12/10/18. Progress Note SUBJECTIVE: Mr. Frances is seen on bedside rounds this morning sitting in his chair. He reports that his breathing is improved from yesterday and that he only gets short of breath on exertion. He notices that smaller amounts of activity bring on the dyspnea compared to his baseline tolerated activity. He says his coughing is improving and is less productive. His low back pain which is chronic is rated at a 6/10 today after pain medication, it is tolerable. He is not as fatigued as he was yesterday. His lower extremity edema is improving today and will work with PT. He denies cp, nausea, vomiting, headaches, fever, chills or sweats. He is eager to go home soon. OBJECTIVE PHYSICAL EXAMINATION: VITAL SIGNS: Please see below. General: 73 yo male, appears pale, sitting in chair, speaking in full sentences, non-labored breathing, no acute distress HEENT: Pale appearing conjunctiva b/l, dry mucus membranes, minimal elevation in JVD, tongue midline Cardiac: Normal s1 and s1, no murmurs rubs or gallops appreciated Resp: Fine velcro crackles throughout, no rales or rhonchi or wheezing latrell reciated Abdomen: Soft, obese, non-distended, no hepatosplenomegaly, no masses appreciated, nabsx4, no rebound rigidity or guarding Extremities: +1 edema b/l LE, improved from yesterday, no cyanosis or mottling appreciated. Right elbow has small superficial abrasion which has dried blood around it, elbow joint is not swollen or bruised, the pt states he slipped from his chair three mornings ago when trying to reach for blanket on his bed in ED, abrasion is improving Skin: irritation rash present on left and right abdomen, mild erythema, no pain on palpation or purulent debris LABORATORY DATA, IMAGING STUDIES, MICROBIOLOGY: Please see below. IMAGING: CXR: New infiltrates left upper and lower lung zones. Compatible with pneumonia MICROBIOLOGY: - Sputum culture: Klebsiella pneumoniae, yeast like organism - Urine culture: no growth - Blood culture: no growth after 72 hours x2 DVT prophylaxis ordered?: Coumadin ASSESSMENT AND PLAN: This is a 73-year-old male with sob, cough productive of brown sputum with recent Hx of E. coli pneumonia and CHF exacerbation PROBLEMS: 1. SOB secondary to HCAP and CHF exacerbation-Klebsiella + -He is being diuresed with Torsemide, he has sustained an CATHY likely secondary to diuresis with Lasix which is improved today, history of Lupus nephritis we have consulted Nephrology, we appreciate his assistance-changed to Torsemide, d/c lasix - c/w Fluid restriction, 1800 ccs/day. - He still appears a bit volume overloaded on PE today but definitely improving -BUN today 25 up from 23 yesterday, Cr today was 1.33, 1.54 yesterday -his BNP was elevated compare to prior hospitalizations, his CXR showed concern for left sided upper/lower infiltrate -Started on Cefdinir, s/p IV Zosyn and Vancomycin -culture sensitives resulted, + sputum for Klebsiella - Mucinex to help with excretions -blood cx pending neg after 72 hours x2, u cx showed no growth, u/a showed some blood/RBC -sputum culture: Klebsiella pneumoniae, yeast like organism. tx for this-c/w fluconazole and Omnicef -normal PM cortisol and ACTH level, after stress dose hydrocortisone-his BP is improved, likely element of adrenal insufficiency, he is a bit hypertensive now so we will lower steroids today -Last ECHO October 2018 showed preserved LV function with pulmonary HTN and elevated CVP Hypotension - likely 2/2 adrenal insufficiency - Cortisol level noted to be on lower limits of normal; likely low given current clinical scenario - Patient was started on stress dose steroids and had a significant imporvement in blood pressure; despite continuing diuresis - Very likely patient has adrenal insufficiency - Will c/w Hydrocortisone; will taper down Hydrocortisone today and transition to oral Hydrocortisone tomorrow 2. Anemia - H/h today 8.25.7, will monitor - Started on IV Venofer and Darbepoetin-appreciate Nephrology help 3. Skin rash on left abdomen - No signs of infection or pain on palpation-likely a contact irritation between skin folds - Nystatin powder started 4. DM2 -SS Insulin with hypoglycemic protocol 5. DLP -c/w home medications 6. HTN -c/w home medications w/ hold parameters 7. A fib on Coumadin -INR 2.93 today-resume AC, INR therapeutic -his INR was supRAtherapeutic on presentation, Coumadin was being held - monitor INR daily - Will now begin Coumadin 2.5 mg daily which represents a dose reduction by 10%- so pt should get about 18 mg Coumadin weekly total -hopefully this will help him to not become suPRAtherapeutic again 8. COPD & ILD -c/w home inhalers 9. Gout -c/w Uloric, pt allergic to allopurinol 10. CBP -C/w pain medications 11. BPH -c/w home flomax 12. Slip/ fall right superficial skin laceration of right elbow - Improving today. On PE there is no bruising, swelling or erythema, small superficial laceration with dried blood, do not suspect fracture, the pt did not sustain LOC or hit his head with the accident, he states he slid a bit off his chair in the ED and scraped his elbow trying to reach for a blanket-monitor for now 13. Hx of Lupus nephritis -Nephrology has been consulted, appreciate their help 14. DVT px -d/c Coumadin DISPOSITION: Patient is clinically improving and states that he feels much be tter today. His sob has decreased and is only present on exertion. His cough and LE edema has improved. Diuresis with Torsemide, fluid restriction to 1800 ccs/day. Sputum culture demonstrated Klebsiella pneumoniae, yeast like organism, started Cefdinir and Fluconazole, s/p Zosyn and Vancomycin. C/w Mucinex for excretions. His blood pressure has improved today after hydrocortisone yesterday, decreasing dose as he is now hypertensive. Resume Coumadin at decreased dose from home, his INR is now therapeutic. Venofer and Darbepoetin were started for anemia, will monitor H/h. Nephrology on board, appreciate their help. Started nystatin powder for rash on left abdomen. Will work with PT, eager to go home. Ancipitate DC in AM pending clinical condition. VS, I&O, 24H, Fishbone Vital Signs/I&O Vital Signs Date Time Temp Pulse Resp B/P (MAP) Pulse Ox O2 Delivery O2 Flow Rate FiO2 12/10/18 08:19 65 160/86 12/10/18 08:00 97.1 18 99 5.0 12/06/18 18:04 Nasal Cannula I&O- Last 24 Hours up to 6 AM 12/10/18 06:00 Intake Total 1320 ml Output Total 975 ml Balance 345 ml Laboratory Data 24H LABS Laboratory Tests 2 12/09/18 12:03: Bedside Glucose (Misc Panel) 115H 12/09/18 17:35: Bedside Glucose (Misc Panel) 157H 12/09/18 22:03: Bedside Glucose (Misc Panel) 128H 12/10/18 06:01: Immature Granulocyte % (Auto) 0.6, White Blood Count 3.4L, Red Blood Count 2.81L, Hemoglobin 8.1L, Hematocrit 25.7L, Mean Corpuscular Volume 91.5, Mean Corpuscular Hemoglobin 28.8, Mean Corpuscular Hemoglobin Concent 31.5L, Red Cell Distribution Width 17.2H, Platelet Count 211, Neutrophils (%) (Auto) 77.5H, Lymphocytes (%) (Auto) 12.7L, Monocytes (%) (Auto) 8.6H, Eosinophils (%) (Auto) 0.6, Basophils (%) (Auto) 0.0, Neutrophils # (Auto) 2.6, Lymphocytes # (Auto) 0.4L, Monocytes # (Auto) 0.3, Eosinophils # (Auto) 0.0, Basophils # (Auto) 0.0, Nucleated Red Blood Cells % (auto) 0.0, Prothrombin Time 30.5H, Prothromb Time International Ratio 2.93, Anion Gap 6L, Glomerular Filtration Rate 56.1, Blood Urea Nitrogen 25H, Creatinine 1.33H, Sodium Level 134L, Potassium Level 3.9, Chloride Level 96L, Carbon Dioxide Level 32, Calcium Level 8.2L 12/10/18 07:57: Vancomycin Level Trough 18.5 CBC/BMP Laboratory Tests 12/10/18 06:01 Red Blood Count 2.81 L, Mean Corpuscular Volume 91.5, Mean Corpuscular Hemoglobin 28.8, Mean Corpuscular Hemoglobin Concent 31.5 L, Red Cell Distribution Width 17.2 H, Neutrophils (%) (Auto) 77.5 H, Lymphocytes (%) (Auto) 12.7 L, Monocytes (%) (Auto) 8.6 H, Eosinophils (%) (Auto) 0.6, Basophils (%) (Auto) 0.0, Neutrophils # (Auto) 2.6, Lymphocytes # (Auto) 0.4 L, Monocytes # (Auto) 0.3, Eosinophils # (Auto) 0.0, Basophils # (Auto) 0.0, Calcium Level 8.2 L Microbiology Microbiology 12/06/18 Blood Culture - Preliminary, Resulted No Growth after 72 hours. All specime... 12/06/18 Blood Culture - Preliminary, Resulted No Growth after 72 hours. All specime... 12/08/18 Gram Stain - Final, Complete 12/08/18 Sputum Culture - Final, Complete Klebsiella Pneumoniae Yeast Like Organism 12/06/18 Urine Culture - Final, Complete GME ATTESTATION GME ATTESTATION My faculty preceptor for this patient encounter was physically present during the encounter and was fully available. All aspects of the patient interview, examination, medical decision making process, and medical care plan development were reviewed and approved by the faculty preceptor. The faculty preceptor is aware and concurs with the plan as stated in the body of this note and will attest to such by his/her cosignature. ATTENDING NOTE I, Jessica Marcial, have independently examined this patient and performed my own physical exam, as well as reviewed the documentation and edited where necessary. I have discussed in detail with the resident / student the findings and plan of treatment as documented by the resident / student and edited their note. I agree with their findings and treatment plan and have edited their documentation. I will continue to follow the patient during this hospital stay. BELINDA LAW OMS-3 Dec 10, 2018 11:23 KELLY CARTER DO Dec 10, 2018 11:47 JESSICA MARCIAL MD Dec 10, 2018 12:40
[2018-12-10] MEDS: MAGNESIUM CHLORIDE 64 MG TABCR (SLO MAG) PO SCH (11:31)
[2018-12-10] MEDS: FLUoxetine 20 MG CAP PO SCH (11:31)
[2018-12-10 12:00] VITALS: BP 130/79
[2018-12-10 16:00] VITALS: BP 124/61
[2018-12-10] MEDS ORDERED: TORSEMIDE 20 MG TAB PO SCH (17:00)
[2018-12-10] MEDS ORDERED: WARFARIN SOD 2.5 MG TAB PO SCH (17:00)
--- NOTE | 2018-12-10 21:52 | IPN ---
DATE: 12/10/2018 SUBJECTIVE The patient was seen and examined at the bedside today morning. He is afebrile, hemodynamically stable. He reports his leg edema is improving, his renal function is also improving, creatinine is down to 5.3 and he reports that his breathing is getting better and he is planning to go home by tomorrow. OBJECTIVE Vital signs: Temperature is 97.5 degrees Fahrenheit, blood pressure 130/79, pulse is 72, respiratory rate of 18, saturating 97% on nasal cannula at 5 liters oxygen. Intake and output: Urine output recorded as 875 mL yesterday, 600 mL so far today since overnight. Weight in the bed scale is 160 mL. The patient reports that his urine output is not being recorded because some of the voids in the toilet bowl were not recorded. PHYSICAL EXAMINATION General: The patient is awake, alert, oriented times three, sitting up in the sofa. No apparent distress. Head and neck examination: Extraocular muscles intact. Pupils equally round and reactive to light. Mucous membranes are moist. Neck is supple. There is no JVD. Cardiovascular: S1, S2, regular rate. 1+ edema of the bilateral lower extremities. Respiratory: Mildly decreased breath sounds at the bases and mild inspiratory crackles because of pulmonary fibrosis. Abdomen: Soft, obese, positive bowel sounds. Nontender. Musculoskeletal: He has 1+ edema of the bilateral lower extremities. Otherwise no clubbing or cyanosis. [employer]ACLE DATABASE ADMINISTRATOR: No focal deficit. Power is 5/5 in all extremities. LAB REVIEW: CBC showed a WBC of 3.4, hemoglobin 8.1, platelets are 211. BMP showed sodium 134, potassium 3.9, chloride 96, bicarb 32, BUN 25, creatinine is 1.3, was 1.5 yesterday. Calcium is 8.2. Microbiology: Sputum culture came back positive for Klebsiella and yeast. CURRENT INPATIENT MEDICATIONS: The patient's medications were all reviewed by me. IV vancomycin and Zosyn has been stopped. Patient is currently on Omnicef 300 mg by mouth twice a day. He was started on Venofer infusions yesterday and the patient also got a dose of Aranesp 200 mcg subcu yesterday. His hydrocortisone dose is being tapered down. He continues to be on torsemide 20 mg by mouth twice a day. ASSESSMENT/PLAN 1. Acute kidney injury superimposed on chronic kidney disease, stage III. Patient's renal function has improved back to baseline. Okay to continue current dose of diuretics. 2. Decompensated diastolic congestive heart failure. Continue torsemide 20 mg by mouth twice a day, spironolactone 25 mg by mouth daily. Continue metoprolol 25 mg by mouth daily. Volume status is improving. 3. Hyponatremia. The patient had hypovolemic hyponatremia. Sodium level is improving with diuretics. 4. Iron-deficiency anemia. The patient has been started on IV Venofer. He also gets Epogen as outpatient. I gave him a dose of Aranesp yesterday, hemoglobin level is improving. 5. Chronic atrial fibrillation. Continue metoprolol. Anticoagulation is being managed by primary team. 6. Lupus membranous nephropathy. The patient was treated with cyclophosphamide and prednisone in the past. He is currently on tapering hydrocortisone because of the chronic use of high dose prednisone.
[2018-12-10] MEDS: ATORVASTATIN 20 MG TAB PO SCH (22:00)
[2018-12-10] MEDS: ENTRESTO 24-26MG TABLET (SACUBITRIL/VALSARTAN) PO SCH (22:03)
[2018-12-10] MEDS: MIRTAZAPINE 15 MG TAB PO SCH (22:04)
[2018-12-10] MEDS: TAMSULOSIN 0.4 MG CAP PO SCH (22:04)
[2018-12-11] VITALS: BP 146/62
[2018-12-11] MEDS: HYDROCORTISONE 100 MG/2 ML VIAL (J1720) IV SCH (02:08)
[2018-12-11 04:00] VITALS: BP 140/77
[2018-12-11] MEDS: SLF 3 ML SYR IV SCH (04:57)
[2018-12-11] MEDS: NORCO, ANEXSIA 5/325MG TABLET (HYDROcodone/ACETAMINOPHEN) PO PRN ×2 (04:58→11:57)
[2018-12-11 05:52] LABS: BASO % 0.3 % (0.0-1.0); EOS # 0.1 10^3/uL (0.0-0.50); EOS % 1.7 % (0.0-3.0); HEMATOCRIT 29.5 % (42.0-52.0); HEMOGLOBIN 9.2 g/dl (13.5-17.5); LYMPH # 0.8 10^3/uL (1.5-4.5); LYMPH % 13.8 % (24.0-44.0); MEAN CORPUSCULAR HEMOGLOBIN 28.7 pg (27.0-33.0); MEAN CORPUSCULAR HGB CONC 31.2 g/dl (32.0-36.5); MEAN CORPUSCULAR VOLUME 91.9 fl (80.0-96.0); MONO # 0.6 10^3/uL (0.0-0.8); MONO % 10.8 % (0.0-5.0); NEUTROPHILS # 4.3 10^3/uL (1.8-7.7); NEUTROPHILS % 72.2 % (36.0-66.0); PLATELET COUNT, AUTOMATED 303 10^3/uL (150-450); RED BLOOD COUNT 3.21 10^6/uL (4.30-6.10); WHITE BLOOD COUNT 5.9 10^3/uL (4.0-10.0)
[2018-12-11 06:07] LABS: INR 2.49; PROTHROMBIN TIME 26.8 SECONDS (11.8-14.0)
[2018-12-11 06:13] LABS: CALCIUM LEVEL 8.9 MG/DL (8.8-10.2); CREATININE FOR GFR 1.49 MG/DL (0.70-1.30); GLOMERULAR FILTRATION RATE 49.2 (>42)
[2018-12-11 08:00] VITALS: BP 128/89
[2018-12-11] MEDS: HumaLOG INSULIN (NovoLOG) PER UNIT SC SCH ×2 (08:00→12:00)
[2018-12-11] MEDS ORDERED: HYDROCORTISONE 10 MG TAB PO SCH ×2 (09:00→21:00)
[2018-12-11] MEDS ORDERED: TORS20TA2 PO (09:17)
[2018-12-11] MEDS ORDERED: CEFD300CAP PO (09:17)
[2018-12-11] MEDS ORDERED: FLUC10TA PO (09:17)
[2018-12-11] MEDS ORDERED: CORT10TA PO ×2 (09:17)
[2018-12-11] MEDS: CYANOCOBALAMIN 500 MCG TAB PO SCH (09:23)
[2018-12-11] MEDS: OMEPRAZOLE 20 MG CAP PO SCH (09:23)
[2018-12-11] MEDS: FLUCONAZOLE 100 MG TAB PO SCH (09:23)
[2018-12-11] MEDS: oxyBUTYnin *DITROPAN XL* 5 MG TABCR PO SCH (09:23)
[2018-12-11] MEDS: GABAPENTIN 300 MG CAP PO SCH (09:24)
[2018-12-11] MEDS: CEFDINIR 300 MG CAP (OMNICEF) PO SCH (09:24)
[2018-12-11] MEDS: FERROUS GLUCONATE 324 MG TAB PO SCH (09:24)
[2018-12-11] MEDS: FEBUXOSTAT 40 MG TABLET (ULORIC) PO SCH (09:24)
[2018-12-11 09:25] VITALS: BP 128/89
[2018-12-11] MEDS: METOPROLOL SUCC *XL* 25MG TAB (TopROL *XL*) PO SCH (09:25)
[2018-12-11] MEDS: TORSEMIDE 20 MG TAB PO SCH (09:26)
[2018-12-11] MEDS: MULTIVITAMINS/MINERALS THERAP 1 TAB PO SCH (09:31)
[2018-12-11] MEDS: ASPIRIN 81 MG ENTERIC TAB PO SCH (09:31)
[2018-12-11] MEDS: SPIRONOLACTONE 25 MG TAB PO SCH (09:31)
[2018-12-11 11:57] VITALS: BP 128/89
[2018-12-11] MEDS: MAGNESIUM CHLORIDE 64 MG TABCR (SLO MAG) PO SCH (11:57)
[2018-12-11] MEDS: FLUoxetine 20 MG CAP PO SCH (11:58)
--- NOTE | 2018-12-11 12:31 | DS.PDOC ---
Discharge Summary General Date of Admission Dec 06, 2018 at 17:04 Date of Discharge 12.11.18 Discharge Summary PROCEDURES PERFORMED DURING STAY: None ADMITTING DIAGNOSES: 1. 1. SOB secondary to HCAP and diastolic CHF exacerbation 2. DM2 3. DLP 4. HTN 5. A fib on [place] 6. COPD & ILD 7. Gout 8. CBP 9. BPH 10. DVT px DISCHARGE DIAGNOSES: 1. SOB secondary to HCAP (from Klebsiella and Heavy growth of Yeast) and Diastolic CHF exacerbation 2. Anemia 3. Skin rash on left abdomen 4. DM2 5. DLP 6. HTN 7. A fib on Coumadin 8. COPD & ILD 9. Gout 10. CBP 11. BPH 12. Slip/ fall right superficial skin laceration of right elbow 13. Hx of Lupus nephritis 14. DVT px COMPLICATIONS/CHIEF COMPLAINT: SOB. 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 fib on Coumadin, DM2, CAD who presents to the ED after worsening SOB for about three days associated with fevers at home of 101 F and increased swelling in b/l LE. The patient was recently d/c on 11.23.18 after a 7 day stay in the hospital for sepsis secondary to E. Coli HAP. The patient states that on Thursday ( about three days ago) he no kenny his chronic and baseline SOB become worse, rather acutely but he stated he tried to stay home and manage it and did not seek medical care. He also noted around this time his legs begin to swell more, he admitted to a weight gain at home over the past week or so but did not let his PCP know. He denies recent sick contact or travel. No night sweats, but he has been experiencing chills, no n/v or diarrhea, he is eating appropriately. Currently he complains of the pain in his neck and back, chronic for him, he does state he is a little out of breath right now but much better than when he first presented to the ED. He denies CP or palpitations. HOSPITAL COURSE: During the course of the patients stay he was seen by nephrology who aided in diretics adjustment and fluid management. His home Torsemide was added on and increased in dose, from the Lasix he has been receiving. He had adequate response to diuretics in house. He noted improvement in his breathing and lower extremity edema. He was treated with antibiotics for suspected PNA, his sputum was positive for Klebsiella. His Coumadin home dose was held in house originally as his INR was supRAtherapeutic, once the INR was appropriate, it was resumed at a different dose than home dose. His BP was also a hypotensive in house, he was started on stress dose steroids for likely adrenal insufficiency and had good response with this, steroid dose was tapered. He worked with PT who suggested he be d/c with some home services. DISCHARGE MEDICATIONS: Please see below. ALLERGIES: Please see below. PHYSICAL EXAMINATION ON DISCHARGE: VITAL SIGNS: Please see below. General: 73 yo male, appears pale, sitting in bedside chair washing up, speaking in full sentences, non-labored breathing, no acute distress HEENT: moist mucus membranes, minimal elevation in JVD, tongue midline Cardiac: Normal s1 and s1, no murmurs rubs or gallops appreciated Resp: Fine velcro crackles throughout, no rales or rhonchi or wheezing appreciated Abdomen: Soft, obese, non-distended, no hepatosplenomegaly, no masses appreciated, nabsx4, no rebound rigidity or guarding Extremities: trace b/l LE, improved from yesterday, no cyanosis or mottling appreciated. Right elbow has small superficial abrasion which has dried blood around it, elbow joint is not swollen or bruised, abrasion is improving Skin: irritation rash present on left and right abdomen, mild erythema, no pain on palpation or purulent debris LABORATORY DATA: Please see below. IMAGIN12.06.18 CXR Impression: New infiltrates left upper and lower lung zones. Compatible with pneumonia. PROGNOSIS: stable to go home w/ services ACTIVITY: As tolerated DIET: would recommend low Na DISCHARGE PLAN: Home DISPOSITION: Home d/c with services DISCHARGE INSTRUCTIONS: 1. Follow up with PCP and Nephrology within 7-10 days of d.c 2. Remain compliant with treatment plan and medications 3. Return to the ER if you experience any problems DISCHARGE CONDITION: Stable TIME SPENT ON DISCHARGE: Greater than 35 minutes. Vital Signs/I&Os Vital Signs Date Time Temp Pulse Resp B/P (MAP) Pulse Ox O2 Delivery O2 Flow Rate FiO2 12/11/18 11:57 97.2 80 20 128/89 96 4.0 12/06/18 18:04 Nasal Cannula I&O- Last 24 Hours up to 6 AM 12/11/18 05:59 Intake Total 1720 ml Output Total 1275 ml Balance 445 ml Laboratory Data Labs 24H Laboratory Tests 2 12/10/18 16:58: Bedside Glucose (Misc Panel) 122H 12/10/18 22:09: Bedside Glucose (Misc Panel) 123H 12/11/18 05:03: Immature Granulocyte % (Auto) 1.2, White Blood Count 5.9, Red Blood Count 3.21L, Hemoglobin 9.2L, Hematocrit 29.5L, Mean Corpuscular Volume 91.9, Mean Corpuscular Hemoglobin 28.7, Mean Corpuscular Hemoglobin Concent 31.2L, Red Cell Distribution Width 17.5H, Platelet Count 303, Neutrophils (%) (Auto) 72.2H, Lymphocytes (%) (Auto) 13.8L, Monocytes (%) (Auto) 10.8H, Eosinophils (%) (Auto) 1.7, Basophils (%) (Auto) 0.3, Neutrophils # (Auto) 4.3, Lymphocytes # (Auto) 0.8L, Monocytes # (Auto) 0.6, Eosinophils # (Auto) 0.1, Basophils # (Auto) 0.0, Nucleated Red Blood Cells % (auto) 0.0, Prothrombin Time 26.8H, Prothromb Time International Ratio 2.49, Anion Gap 7L, Glomerular Filtration Rate 49.2, Blood Urea Nitrogen 27H, Creatinine 1.49H, Sodium Level 135L, Potassium Level 4.0, Chloride Level 95L, Carbon Dioxide Level 33H, Calcium Level 8.9 12/11/18 12:03: CBC/BMP Laboratory Tests 12/11/18 05:03 Red Blood Count 3.21 L, Mean Corpuscular Volume 91.9, Mean Corpuscular Hemoglobin 28.7, Mean Corpuscular Hemoglobin Concent 31.2 L, Red Cell Distribution Width 17.5 H, Neutrophils (%) (Auto) 72.2 H, Lymphocytes (%) (Auto) 13.8 L, Monocytes (%) (Auto) 10.8 H, Eosinophils (%) (Auto) 1.7, Basophils (%) (Auto) 0.3, Neutrophils # (Auto) 4.3, Lymphocytes # (Auto) 0.8 L, Monocytes # (Auto) 0.6, Eosinophils # (Auto) 0.1, Basophils # (Auto) 0.0, Calcium Level 8.9 FSBS Laboratory Tests Test 12/10/18 16:58 12/10/18 22:09 12/11/18 12:03 Range/Units Bedside Glucose (Misc Panel) 122 123 83-110 MG/DL Microbiology Microbiology 12/06/18 Blood Culture - Preliminary, Resulted No Growth after 72 hours. All specime... 12/06/18 Blood Culture - Preliminary, Resulted No Growth after 72 hours. All specime... 12/08/18 Gram Stain - Final, Complete 12/08/18 Sputum Culture - Final, Complete Klebsiella Pneumoniae Yeast Like Organism 12/06/18 Urine Culture - Final, Complete Discharge Medications Scheduled Acarbose (Acarbose) 25 Mg Tab, 25 MG PO AC, (Reported) Aspirin (Aspirin EC) 81 Mg Tablet.dr, 81 MG PO DAILY, (Reported) Atorvastatin Calcium (Atorvastatin Calcium) 40 Mg Tablet, 20 MG PO QHS, (Reported) Calcium Carbonate/Vitamin D3 (Calcium 600-Vit D3 400 Tablet) 1 Each Tablet, 1 TAB PO BID, (Reported) Cefdinir (Cefdinir) 300 Mg Capsule, 300 MG PO BID Cyanocobalamin (Vitamin B-12) (Vitamin B-12) 1,000 Mcg Tab, 1,000 MCG PO DAILY, (Reported) Epoetin [place] (Procrit) 20,000 Unit/Ml Inj, 20,000 UNIT SC Q2WK, (Reported) Ergocalciferol (Vitamin D2) (Vitamin D2) 50,000 Unit Cap, 50,000 UNIT PO QWEEK, (Reported) WEDNESDAYS Febuxostat (Uloric) 80 Mg Tab, 80 MG PO DAILY, (Reported) Ferrous Gluconate (Ferrous Gluconate) 324 Mg Tab, 324 MG PO BIDWM, (Reported) Fluconazole (Diflucan) 100 Mg Tablet, 100 MG PO DAILY Fluoxetine Hcl (Fluoxetine HCl) 20 Mg Cap, 80 MG PO DAILY, (Reported) TAKES AT 1200 Gabapentin (Gabapentin) 600 Mg Tablet, 600 MG PO TID, (Reported) Hydrocortisone (Cortef) 10 Mg Tablet, 30 MG PO QAM take 3 tabs every morning x 4 days, then take 2 days every morning there after Hydrocortisone (Cortef) 10 Mg Tablet, 20 MG PO QPM take 2 tabs every evening x 4 days; then take 1 tab every evening there after L.acidoph/L.bulg/B.bif/S.therm (Bacid Caplet) 1 Tab Tab, 1 TAB PO DAILY, (Reported) Magnesium Chloride (Slow-Mag) 1 Tab Tab, 1 TAB PO DAILY, (Reported) TAKES AT 1200 Metoprolol Succinate (Metoprolol Succinate) 50 Mg Tab.er.24h, 25 MG PO DAILY, (Reported) Mirtazapine (Remeron) 30 Mg Tab, 30 MG PO QHS, (Reported) Multivitamins (Thera M Plus Tablet) 1 Tab Tab, 1 TAB PO DAILY, (Reported) Omeprazole (Omeprazole) 20 Mg Tablet.dr, 40 MG PO BID, (Reported) Oxybutynin Chloride (Oxybutynin Chloride ER) 15 Mg Tab, 15 MG PO DAILY, (Reported) Ranitidine HCl (Ranitidine HCl) 150 Mg Tab, 1 TAB PO BID, (Reported) Sacubitril/Valsartan (Entresto 24 mg-26 mg Tablet) 1 Each Tablet, 1 TAB PO QHS, (Reported) Spironolactone (Spironolactone) 25 Mg Tablet, 25 MG PO DAILY, (Reported) Tamsulosin HCl (Flomax) 0.4 Mg Cap, 0.4 MG PO QPM, (Reported) Torsemide (Torsemide) 20 Mg Tablet, 20 MG PO BID@09,17 Warfarin Sodium (Warfarin Sodium) 2 Mg Tab, 2 MG PO 1XWK, (Reported) QPM: THURSDAY Warfarin Sodium (Warfarin Sodium) 2 Mg Tablet, 3 MG PO 6XWK, (Reported) QPM: SUN, TUES, WED, THURS, FRI, SAT Scheduled PRN Albuterol Sulf (Albuterol Sulfate) 2.5 Mg/3 Ml Nebu, 2.5 MG INH Q4H PRN for SHORTNESS OF BREATH, (Reported) Albuterol Sulfate (Proair Hfa) 108 Mcg/Act Aer, 1 PUFF INH Q4H PRN for SHORTNESS OF BREATH, (Reported) Hydrocodone/Acetaminophen (Hydrocodone-Acetamin 10-325 mg) 1 Tab Tab, 2 TAB PO TID PRN for PAIN, (Reported) Nitroglycerin (Nitrostat) 0.4 Mg Subl, 0.4 MG SL NITRO PRN for CHEST PAIN, (Reported) Polyvinyl Alcohol (Artificial Tears) 1.4 % Joyce, 1 DROP OU BID PRN for DRY EYES, (Reported) Trazodone HCl (Trazodone HCl) 50 Mg Tab, 50 MG PO QHS PRN for SLEEP, (Reported) Allergies Coded Allergies: allopurinol (Verified Adverse Reaction, Mild, itching, 12/06/18) GME ATTESTATION GME ATTESTATION My faculty preceptor for this patient encounter was physically present during the encounter and was fully available. All aspects of the patient interview, examination, medical decision making process, and medical care plan development were reviewed and approved by the faculty preceptor. The faculty preceptor is aware and concurs with the plan as stated in the body of this note and will attest to such by his/her cosignature. ATTENDING NOTE I, Jessica Nj, have independently examined this patient and performed my own physical exam, as well as reviewed the documentation and edited where necessary. I have discussed in detail with the resident / student the findings and plan of treatment as documented by the resident / student and edited their note. I agree with their findings and treatment plan and have edited their documentation. I will continue to follow the patient during this hospital stay. Time spent on discharge 36 minutes KELLY CARTER DO Dec 11, 2018 12:31 JESSICA NJ MD Dec 11, 2018 13:04
--- NOTE | 2018-12-11 14:06 | IPN ---
DATE OF SERVICE: 12/11/2018 SUBJECTIVE: The patient was seen and examined at the bedside today morning. He is afebrile, hemodynamically stable. His edema is improving. His renal function is stable. Creatinine is 1.4. He reports his shortness of breath is getting better. He is afebrile and primary team is planning to send the patient home on current regimen. OBJECTIVE: VITAL SIGNS: Temperature is 97.2 degrees Fahrenheit, blood pressure 128/89, pulse is 80, respiratory of 20, saturating 96% on nasal cannula at 4 liters. INTAKE AND OUTPUT: Urine output recorded as 1.5 liters overnight. Weight on the bed scale is 115.7 kg. PHYSICAL EXAMINATION: General: The patient is awake, alert, oriented times three, morbidly obese, sitting up on the sofa in no apparent distress. Head and neck exam: Extraocular muscles intact. Pupils equally round and reactive to light. Mucous membranes are moist. Neck is supple. There is no jugular venous distention (JVD). Cardiovascular: S1, S2 regular rate. 1+ edema of the bilateral lower extremities. Respiratory: Chest is clear to auscultation at the bases. He has few scattered crepitations on the lungs because of pulmonary fibrosis. Abdomen: Soft, obese, positive bowel sounds. Musculoskeletal: 1+ edema of bilateral lower extremities. Otherwise, no clubbing or cyanosis. 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 Power is 5/5 in all extremities. LAB REVIEW: CBC showed a WBC 5.9, hemoglobin 9.2, platelets of 303. BMP showed sodium 135, potassium is 4, chloride 95, bicarb 33, BUN 27, creatinine is 1.4. CURRENT INPATIENT MEDICATIONS: The patient's medications were all reviewed by me. He continues to be on torsemide 20 mg p.o. twice a day and spironolactone 25 mg daily. ASSESSMENT/PLAN: 1. Acute kidney injury superimposed on chronic kidney disease stage III. Volume status is optimal. Creatinine has been fluctuating at around 1.3 to 1.4. Okay to continue current diuretics dose. 2. Decompensated diastolic congestive heart failure. Continue torsemide 20 mg p.o. twice a day, spironolactone 25 mg daily. Continue metoprolol 25 mg p.o. daily. 3. Iron-deficiency anemia. The patient was given IV Venofer. Hemoglobin is 9.2. Continue home dose of Procrit on discharge. 4. Lupus membranous nephropathy. Continue the valsartan at this point. Immunosuppression was given in the past was stopped because of side effects. 5. Hypotension. The patient chronically was on long-term steroids. He is currently being given hydrocortisone and primary team and plans to discharge him on hydrocortisone. Dose will be adjusted as outpatient. DISPOSITION: It is okay to discharge the patient from a nephrology standpoint.
== END 2018-12-11 12:19 | disposition home or self-care (01) | DRG 177 ==
LOC: M ED 13:04 → M ED INP 17:04 → M PCU 12-07 17:42
PROVIDERS: ADMIT Internal Medicine Nephrology; ATTEND Internal Medicine
DX: J15.0 Pneumonia due to Klebsiella pneumoniae (principal); I50.33 Acute on chronic diastolic (congestive) heart failure; J44.0 Chronic obstructive pulmonary disease with (acute) lower respiratory infection; N17.9 Acute kidney failure, unspecified; I13.0 Hypertensive heart and chronic kidney disease with heart failure and stage 1 through stage 4 chronic kidney disease, or unspecified chronic kidney disease; E87.1 Hypo-osmolality and hyponatremia; E27.40 Unspecified adrenocortical insufficiency; E11.9 Type 2 diabetes mellitus without complications; M32.14 Glomerular disease in systemic lupus erythematosus; N40.0 Benign prostatic hyperplasia without lower urinary tract symptoms; Z79.01 Long term (current) use of anticoagulants; N18.3 Chronic kidney disease, stage 3 (moderate); Z79.82 Long term (current) use of aspirin; Z79.899 Other long term (current) drug therapy; Z88.8 Allergy status to other drugs, medicaments and biological substances; I25.10 Atherosclerotic heart disease of native coronary artery without angina pectoris; Z95.1 Presence of aortocoronary bypass graft; K22.70 Barrett's esophagus without dysplasia; Z87.891 Personal history of nicotine dependence; F43.10 Post-traumatic stress disorder, unspecified; M32.13 Lung involvement in systemic lupus erythematosus; F32.9 Major depressive disorder, single episode, unspecified; Z95.2 Presence of prosthetic heart valve; Z96.651 Presence of right artificial knee joint; Z96.652 Presence of left artificial knee joint; M10.30 Gout due to renal impairment, unspecified site; I95.9 Hypotension, unspecified; D50.9 Iron deficiency anemia, unspecified; I48.2 Chronic atrial fibrillation

== ENCOUNTER 2019-05-06 16:12 | Inpatient (IN) | payer OTHER, MEDICARE ==
[~2019-05-06] VITALS: Ht 172.7 cm; Wt 108.1 kg
[~2019-05-06 16:12] MED LIST changes: -ARTI99.0 OU; +ARTIDRO2 OU; +ASPI-531 PO; +CORT10TA PO; +CYAN100049 PO; +ELIQ2.5T PO; +ELIQ5TAB PO; -FEBU40TA PO; +FEBU40TA4 PO; +FLUC10TA PO; +HYDR-4513 PO; +OMEP-358 PO; -OMEP20CA3 PO; +OMEP20CA4 PO; -OMEP20TA PO; -OMEP40CA2 PO; +OMEP40CA97 PO; +TORS20TA2 PO; -VITA10002 PO; -[UNRECOGNIZED DRUG - CODE] PO
[2019-05-06 17:16] LABS: BASO % 0.3 % (0.0-1.0); HEMATOCRIT 35.5 % (42.0-52.0); HEMOGLOBIN 10.9 g/dl (13.5-17.5); LYMPH # 1.1 10^3/uL (1.5-5.0); LYMPH % 12.2 % (24.0-44.0); MEAN CORPUSCULAR HEMOGLOBIN 28.6 pg (27.0-33.0); MEAN CORPUSCULAR HGB CONC 30.7 g/dl (32.0-36.5); MEAN CORPUSCULAR VOLUME 93.2 fl (80.0-96.0); MONO % 11.2 % (0.0-5.0); NEUTROPHILS # 6.8 10^3/uL (1.5-8.5); PLATELET COUNT, AUTOMATED 289 10^3/uL (150-450); RED BLOOD COUNT 3.81 10^6/uL (4.30-6.10); WHITE BLOOD COUNT 8.9 10^3/uL (4.0-10.0)
--- NOTE | 2019-05-06 17:28 | REP ---
Portable chest x-ray: Single view. History: Chest pain. Comparison chest x-ray: May 04, 2019. Findings: Monitoring electrodes overlie the chest. Oxygen delivery tubing is seen. The patient is status post cervical spine fusion. Cardiomegaly is observed. Left hemidiaphragm is somewhat elevated. There are increased markings in the left base above the hemidiaphragm. These findings are unchanged. Pulmonary vasculature is congested has be for. No new infiltrate is seen. Impression: Cardiomegaly vascular congestion. Increased markings left base unchanged from May 04 2019 prior study. Electronically Signed by Mustapha Brown MD 05/06/2019 06:44 P
[2019-05-06 17:30] LABS: INR 2.07; PROTHROMBIN TIME 23.1 SECONDS (11.8-14.0)
[2019-05-06 17:59] LABS: INFLUENZA A AMPLIFICATION NEGATIVE (NEGATIVE); INFLUENZA B AMPLIFICATION NEGATIVE (NEGATIVE)
[2019-05-06 18:06] LABS: ALBUMIN 2.9 GM/DL (3.2-5.2); ALT/SGPT 23 U/L (12-78); BILIRUBIN,TOTAL 0.4 MG/DL (0.2-1.0); BLOOD UREA NITROGEN 59 MG/DL (7-18); CALCIUM LEVEL 9.1 MG/DL (8.8-10.2); CARBON DIOXIDE LEVEL 26 MEQ/L (21-32); CHLORIDE LEVEL 104 MEQ/L (98-107); CK-MB VALUE MASS < 1.0 NG/ML (<3.6); CPK CREATINE PHOSPHOKINASE 28 U/L (39-308); CREATININE FOR GFR 1.91 MG/DL (0.70-1.30); GLUCOSE, FASTING 111 MG/DL (70-100); MB/CK RELATIVE INDEX 3.57 (< OR =4); NT-PRO BNP 11317 PG/ML (<125); SODIUM LEVEL 138 MEQ/L (136-145); TOTAL PROTEIN 6.6 GM/DL (6.4-8.2); TROPONIN I < 0.02 NG/ML (< 0.10)
[2019-05-06] MEDS ORDERED: FUROSEMIDE 40 MG/4 ML VIAL (J1940) IV ONE (18:15)
[2019-05-06] MEDS ORDERED: MORPHINE 2 MG/ML 1ML VIAL (J2270) IV ONE (19:00)
--- NOTE | 2019-05-06 19:14 | ECGEPIP ---
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
[2019-05-06] MEDS ORDERED: DOCUSATE SODIUM 100 MG CAP PO PRN (20:00)
[2019-05-06 20:21] LABS: MAGNESIUM LEVEL 1.9 MG/DL (1.8-2.4)
[2019-05-06] MEDS ORDERED: GLUCOSE 4 GM CHEW TABLET PO PRN (20:30)
[2019-05-06] MEDS ORDERED: DEXTROSE 50% 50 ML SYRINGE IV PRN (20:30)
[2019-05-06] MEDS ORDERED: MORPHINE 2 MG/ML 1ML VIAL (J2270) IV PRN ×2 (20:30→22:30)
[2019-05-06] MEDS ORDERED: GLUCAGON FOR INJ 1 MG VIAL (J1610) SC PRN (20:30)
[2019-05-06] MEDS ORDERED: ALBUTEROL 90 MCG/ACT 8GM HFA INHALER INH PRN (21:00)
[2019-05-06] MEDS ORDERED: POLYVINYL ALCOHOL OPHTH SOLN 15 ML(LIQUITEARS) OU PRN (21:00)
[2019-05-06] MEDS ORDERED: ALBUTEROL SULFATE 2.5 MG/0.5 ML INH NEB SOLN INH PRN (21:00)
[2019-05-06] MEDS: HumaLOG INSULIN (NovoLOG) PER UNIT SC SCH (21:00)
--- NOTE | 2019-05-06 21:09 | HPEPDOC ---
[facility] Medical History & Physical Date of Admission May 06, 2019 Date of Service: May 06, 2019 Other Provider Deepak Conti MD Attending Physician: SO ROMERO MD History and Physical CHIEF COMPLAINT: Shortness of breath, chest tightness HISTORY OF PRESENT ILLNESS: Angel Frances is a 73 YO M with atrial fibrillation, congestive heart failure just discharged yesterday after admission for chest pain and congestive heart failure exacerbation presents to the ED with chest tig htness, shortness of breath. He reports that when he left the hospital his shortness of breath had improved with diuresis, but once he went home he did not take any Lasix as he was prescribed and now he feels chest tightness again. He reports he has been sweating and feeling febrile with chills, but denies any nausea or vomiting. He states he has soft stool. He had not been adhering to his fluid restriction at home. He reports he has been coughing and producing yellowish sputum at this time. REVIEW OF SYSTEMS: CONSTITUTIONAL: Reports fevers and chills, lethargy HEENT: denies vision changes, no sinus problems, denies any trouble swallowing CARDIOVASCULAR: Reports chest tightness, pain RESPIRATORY: Reports significant Shortness of breath GENITOURINARY: No dysuria MUSCULOSKELETAL: Denies any joint/muscle pain GASTROINTESTINAL: Reports abdominal pain, no nausea/vomiting, reports soft stools SKIN: No new rashes or lesions NEUROLOGICAL: No loss of sensation PSYCHIATRIC: Reports normal mood, no delusions or hallucinations ENDOCRINE: No hot/cold intolerance HEMATOLOGIC/LYMPHATIC: No easy bruising, no lumps/bumps ALLERGIC/IMMUNOLOGIC: No sinus symptoms PAST MEDICAL HISTORY: 1. Recent hospitalization for CHF exacerbation 2. Coronary artery disease with remote history of coronary intervention before 2009. No recent evaluation of coronary anatomy by coronary angiography or nuclear stress testing. 3. Interstitial lung disease, believed to be related to lupus. On 4 L oxygen at home 4. Lupus membranous nephropathy 5. Chronic renal insufficiency, stage III to stage IV. 6. Chronic atrial fibrillation. 7. Type 2 diabetes. 8. Gastroesophageal reflux disease (GERD)/Marcial's esophagus. 9. BPH. 10. Post-traumatic stress disorder (PTSD). PAST SURGICAL HISTORY: 1. knee surgery 2. cataract surgery 3. back surgery 4. renal biopsy SOCIAL HISTORY: Patient is an ex-smoker, quit many years ago. Does not drink alcohol. He lives with his daughter. FAMILY HISTORY: Positive for hypertension and diabetes. ALLERGIES: Please see below. HOME MEDICATIONS: Please see below. PHYSICAL EXAMINATION: VITAL SIGNS: Please see below. GENERAL APPEARANCE: Laying in bed, appears stated age, no acute distress, calm, cooperative HEENT: EOMI, PERRLA, neck is supple with no thyromegaly or lymphadenopathy RESPIRATORY: Crackles are heard in bases bilaterally up to middle lobe, there are decreased breath sounds otherwise CARDIOVASCULAR: Mildly elevated JVD, irregularly irregular heart rate,no murmurs/rubs/gallops ABDOMEN: Soft, tender to palpation in the right upper and lower quadrants, no masses/organomegaly EXTREMITIES: no clubbing, cyanosis or edema noted NEUROLOGICAL: No obvious focal deficits PSYCHIATRIC: normal mood/affect Skin: No rashes or ulcers. LN: No significant cervical or inguinal lymphadenopathy LABORATORY DATA: See below. IMAGING: CXR: Findings: Monitoring electrodes overlie the chest. Oxygen delivery tubing is seen. The patient is status post cervical spine fusion. Cardiomegaly is observed. Left hemidiaphragm is somewhat elevated. There are increased markings in the left base above the hemidiaphragm. These findings are unchanged. Pulmonary vasculature is congested has be for. No new infiltrate is seen. Impression: Cardiomegaly vascular congestion. Increased markings left base unchanged from May 04 2019 prior study. EKG:A fib w PVCs MICROBIOLOGY: Please see below. ASSESSMENT: This is a 73-year-old male with congestive heart failure and atrial fibrillation who presents with shortness of breath and chest tightness found to be hypervolemic most likely secondary to acute systolic congestive heart failure. PLAN: 1. Acute Systolic Congestive heart failure - Patient was just discharged home and did not take Lasix in outpatient setting nor did he adhere to fluid restriction. -BNP found to be 11,317 and patient has elevated JVD and significant crackles -Chest x-ray demonstrates significant vascular congestion -Will start Lasix 60 mg every 12 hours -As patient is immobile will put condom catheter -Strict fluid restriction to 2000cc/day, I/O's, daily weights -Will continue home Metoprolol, Entresto, Torsemide & Spironolactone 2. Acute on Chronic Kidney Disease, Stage III -possibly due to type 1 cardiorenal syndrome -Cr currently 1.9, was 2.26 yesterday when he left the hospital. Appears that his baseline is around 1.4. -Gentle diuresis for now -Patient has biopsy-proven lupus membranous nephritis. Reportedly, was previ ously on immunosuppression, but this was stopped due to side effect. I believe this may be why the patient is taking hydrocortisone twice daily. -Continue Hydrocortisone 3. Shortness of breath: -Likely secondary to florid fluid overload therefore it will likely improve with diuresis -No evidence of pneumonia on chest x-ray. However, patient did have low-grade fever in ED of 100.4. -WBC is not elevated. He reports he is coughing and producing yellowish sputum. -There is no new oxygen requirement. -Will order sputum cultures and respiratory viral panel. -Blood cultures pending. Influenza negative. -Continuous pulse oximetry, oxygen titration orders 4. Atrial fibrillation -Rate is controlled at this time -Will continue home metoprolol succinate and Eliquis 5. Interstitial lung disease with chronic oxygen dependent respiratory failure -on oxygen at home, 4 L -Patient sees Dr. Morales but has not followed up in office recently. -Will continue home inhalers at this time 6. RUQ/RLQ abdominal pain: -Labs are unrevealing of any liver disease but pain seems to be concentrated over his liver. -Liver also feels slightly enlarged likely 2/2 hepatic congestion -I have ordered a CT abdomen pelvis without contrast. 7. T2DM: -A1C 6.1% -monitor serum glucose -SSI with hypoglycemic protocol 8. Chronic back pain: -Takes [place] at home. Pain is at 8/10 as it gets exacerbated when he coughs. -Will have him on IV morphine for now and transition to home medications tomorrow so as to not cause respiratory depression 9. CAD: -Continue Aspirin, Atorvastatin & Metoprolol 10. Hx GERD/ Marcial's esophagus: -Continue Omeprazole 11. Anemia -possibly 2/2 iron deficiency vs B12 def vs anemia of chronic kidney disease -Patient takes Procrit 2x/week -Will continue iron, B12 supplementation 12. History of Gout: -Continue home Febuxostat 13. Mood disorder: -Continue Remeron 14. Sleep disorder: -Patient takes Ambien at home but this will be temporarily held DVT ppx: Patient is on Eliquis CODE STATUS: FULL CODE DISPO: [place] home after more than 2 midnight's sta pending improvement in fluid status Vital Signs Vital Signs Date Time Temp Pulse Resp B/P (MAP) Pulse Ox O2 Delivery O2 Flow Rate FiO2 05/06/19 19:13 100.4 05/06/19 18:30 104/67 (79) 05/06/19 18:27 87 05/06/19 18:12 84 05/06/19 16:35 22 Nasal Cannula 4.0 Laboratory Data Labs 24H Laboratory Tests 2 05/06/19 16:57: Immature Granulocyte % (Auto) 0.3, Neutrophils (%) (Auto) 76.0H, Lymphocytes (%) (Auto) 12.2L, Monocytes (%) (Auto) 11.2H, Eosinophils (%) (Auto) 0.0, Basophils (%) (Auto) 0.3, Neutrophils # (Auto) 6.8, Lymphocytes # (Auto) 1.1L, Monocytes # (Auto) 1.0H, Eosinophils # (Auto) 0.0, Basophils # (Auto) 0.0, Nucleated Red Blood Cells % (auto) 0.0, Prothrombin Time 23.1H, Prothromb Time International Ratio 2.07, Lactic Acid Level 2.3*H 05/06/19 17:04: Urine Color YELLOW, Urine Appearance HAZY, Urine pH 5.0, Urine Specific [place] 1.009, Urine Protein 1+H, Urine Glucose (UA) NEGATIVE, Urine Ketones NEGATIVE, Urine Blood 2+H, Urine Nitrite NEGATIVE, Urine Bilirubin NEGATIVE, Urine Urobilinogen 0.2, Urine Leukocyte Esterase NEGATIVE, Urine WBC (Auto) 3, Urine RBC (Auto) 2, Urine Hyaline Casts (Auto) 4, Urine Bacteria (Auto) NEGATIVE, Urine Squamous Epithelial Cells 0, Urine Mucus (Auto) SMALL, Urine Sperm (Auto) , Anion Gap 8, Glomerular Filtration Rate 37.0L, Calcium Level 9.1, Total Bilirubin 0.4#, Aspartate Amino Transf (AST/SGOT) 14, Alanine Aminotransferase (ALT/SGPT) 23, Alkaline Phosphatase 164H, Total Creatine Kinase 28L, Creatine Kinase MB < 1.0, Creatine Kinase MB Relative Index 3.57, Troponin I < 0.02, ML-Dpy-L-Type Natriuretic Peptide 27620M, Total Protein 6.6, Albumin 2.9L, Albumin/Globulin Ratio 0.78L 05/06/19 17:11: Influenza Type A (RT-PCR) NEGATIVE, Influenza Type B (RT-PCR) NEGATIVE CBC/BMP Laboratory Tests 05/06/19 16:57 05/06/19 17:04 Microbiology Microbiology 05/06/19 Blood Culture, Received Pending Home Medications Scheduled Acarbose (Acarbose) 25 Mg Tab, 25 MG PO ACB Apixaban (Eliquis) 5 Mg Tablet, 5 MG PO BID Aspirin (Aspirin EC) 81 Mg Tablet.dr, 81 MG PO DAILY Atorvastatin Calcium (Atorvastatin Calcium) 40 Mg Tablet, 20 MG PO QHS Calcium Carbonate/Vitamin D3 (Calcium 600-Vit D3 400 Tablet) 1 Each Tablet, 1 TAB PO BID Cyanocobalamin (Vitamin B-12) (Vitamin B-12) 1,000 Mcg Tab, 1,000 MCG PO DAILY Epoetin [place] (Procrit) 20,000 Unit/Ml Inj, 20,000 UNIT SC Q2WK Ergocalciferol (Vitamin D2) (Vitamin D2) 50,000 Unit Cap, 50,000 UNIT PO QWEEK WEDNESDAYS Febuxostat (Uloric) 80 Mg Tab, 80 MG PO DAILY Ferrous Gluconate (Ferrous Gluconate) 324 Mg Tab, 324 MG PO BIDWM Fluoxetine Hcl (Fluoxetine HCl) 20 Mg Cap, 80 MG PO DAILY TAKES AT 1200 Gabapentin (Gabapentin) 600 Mg Tablet, 600 MG PO TID Hydrocortisone (Hydrocortisone) 10 Mg Tablet, 30 MG PO QAM Hydrocortisone (Hydrocortisone) 10 Mg Tablet, 20 MG PO QPM L.acidoph/L.bulg/B.bif/S.therm (Bacid Caplet) 1 Tab Tab, 1 TAB PO DAILY Magnesium Chloride (Slow-Mag) 1 Tab Tab, 1 TAB PO DAILY TAKES AT 1200 Metoprolol Succinate (Metoprolol Succinate) 50 Mg Tab.er.24h, 25 MG PO DAILY Mirtazapine (Remeron) 30 Mg Tab, 30 MG PO QHS Multivitamins (Thera M Plus Tablet) 1 Tab Tab, 1 TAB PO DAILY Omeprazole (Omeprazole) 20 Mg Tablet.dr, 40 MG PO BID Oxybutynin Chloride (Oxybutynin Chloride ER) 15 Mg Tab, 15 MG PO DAILY Ranitidine HCl (Ranitidine HCl) 150 Mg Tab, 1 TAB PO BID Sacubitril/Valsartan (Entresto 24 mg-26 mg Tablet) 1 Each Tablet, 1 TAB PO QHS Spironolactone (Spironolactone) 25 Mg Tablet, 25 MG PO DAILY Tamsulosin HCl (Flomax) 0.4 Mg Cap, 0.4 MG PO QPM Torsemide (Torsemide) 20 Mg Tablet, 20 MG PO BID 0900/1700 Scheduled PRN Albuterol Sulf (Albuterol Sulfate) 2.5 Mg/3 Ml Nebu, 2.5 MG INH Q4H PRN for SHORTNESS OF BREATH Albuterol Sulfate (Proair Hfa) 108 Mcg/Act Aer, 1 PUFF INH Q4H PRN for SHORTNESS OF BREATH Hydrocodone/Acetaminophen (Hydrocodone-Acetamin 10-325 mg) 1 Tab Tab, 2 TAB PO TID PRN for PAIN Nitroglycerin (Nitrostat) 0.4 Mg Subl, 0.4 MG SL NITRO PRN for CHEST PAIN Polyvinyl Alcohol (Artificial Tears) 1.4 % Joyce, 1 DROP OU BID PRN for DRY EYES Zolpidem Tartrate (Zolpidem Tartrate) 5 Mg Tablet, 5 MG PO QHS PRN for SLEEP Allergies Coded Allergies: allopurinol (Verified Adverse Reaction, Mild, itching, 12/06/18) A-FIB/CHADSVASC A-FIB History Current/History of A-Fib/PAF?: Yes Current PO Anticoag Therapy: Yes Age/Risk Factor Scoring CHADSVASC: CHADSVASC Response (Comments) Value Age Risk Factor Age 65-74 years old 1 Gender Risk Factor Male 0 Hx of CHF Yes 1 Hx of HTN Yes 1 Hx of Stroke/TIA/or VTE No 0 Hx of Diabetes Yes 1 Hx of Vascular Disease Yes 1 Total 5 Treatment Treatment ordered: Apixaban GME ATTESTATION GME ATTESTATION My faculty preceptor for this patient encounter was physically present during the encounter and was fully available. All aspects of the patient interview, examination, medical decision making process, and medical care plan development were reviewed and approved by the faculty preceptor. The faculty preceptor is aware and concurs with the plan as stated in the body of this note and will attest to such by his/her cosignature. ATTENDING NOTE I examined at 825PM, discussed the case with , edited her note and agree with the findings as documented above. CINDY FORTE MD May 06, 2019 19:27 SO ROMERO MD May 07, 2019 01:33
--- NOTE | 2019-05-06 21:11 | REPVR ---
PROCEDURE INFORMATION: Exam: CT Abdomen And Pelvis Without Contrast Exam date and time: 05/06/2019 8:26 PM Clinical history: 73 years old, male; Abdominal pain; Generalized; Additional info: Ruq and rlq abdominal pain TECHNIQUE: Imaging protocol: Computed tomography of the abdomen and pelvis without contrast. Radiation optimization: All CT scans at this facility use at least one of these dose optimization techniques: automated exposure control; mA and/or kV adjustment per patient size (includes targeted exams where dose is matched to clinical indication); or iterative reconstruction. COMPARISON: CT ABD PELVIS W/O CONTRAST 05/09/2018 9:17 AM FINDINGS: Lungs: Course subpleural interstitium with mild fibro-atelectatic change and question of infiltrates, greatest in the left lower lobe. Pleural space: Minimal pleural calcifications. Minimal left pleural effusion. Heart: The left atrium measures 7.0 cm in its AP dimension. Liver: Trace perihepatic fluid. Gallbladder and bile ducts: Gallbladder distention measuring 5.8 cm with no stones. Pancreas: Normal. No ductal dilation. Spleen: Normal. No splenomegaly. Adrenals: Normal. No mass. Kidneys and ureters: Normal. No hydronephrosis. Stomach and bowel: There is colonic diverticulosis without evidence of diverticulitis. Mild distention of proximal small bowel in the left upper quadrant with a few air-fluid levels. Appendix: A normal appendix is seen. Intraperitoneal space: Unremarkable. No free air. No significant fluid collection. Vasculature: Coronary artery calcifications are present. There is mild calcification of the abdominal aorta with extension into the iliac arteries. Lymph nodes: Small distal paraesophageal node which is nonspecific. Bladder: Unremarkable as visualized. Reproductive: Unremarkable as visualized. Bones/joints: Degenerative changes of the lumbar spine with left neural foraminal stenosis at L4-L5. Soft tissues: Unremarkable. IMPRESSION: 1. Mild distention of proximal small bowel with a few air-fluid levels which may reflect ileus or enteritis. Low-grade obstruction is not excluded. 2. Cardiomegaly. 3. Interstitial prominence with mild fibro-atelectatic change and question of minimal infiltrates which are decreased since 05/09/2018. There is minimal left pleural effusion which is increased. 4. Trace perihepatic fluid which is new. 5. Gallbladder distention which is slightly decreased. No stones are seen. 6. Colonic diverticulosis without diverticulitis. Electronically signed by: Remi Chang On 05/06/2019 21:10:53 PM
[2019-05-06 22:05] VITALS: BP 134/74
[2019-05-06] MEDS: OMEPRAZOLE 20 MG CAP PO SCH (22:33)
[2019-05-06] MEDS: FAMOTIDINE 20 MG TAB PO SCH (22:33)
[2019-05-06] MEDS: ATORVASTATIN 20 MG TAB PO SCH (22:33)
[2019-05-06] MEDS: ACETAMINOPHEN TAB 650MG DOSE (2X325MG) PO PRN (22:34)
[2019-05-06] MEDS: MIRTAZAPINE 15 MG TAB PO SCH (22:34)
[2019-05-06] MEDS: APIXABAN 5 MG TAB (ELIQUIS) PO SCH (22:34)
[2019-05-06] MEDS: TAMSULOSIN 0.4 MG CAP PO SCH (22:34)
[2019-05-06] MEDS: ENTRESTO 24-26MG TABLET (SACUBITRIL/VALSARTAN) PO SCH (22:38)
[2019-05-06] MEDS ORDERED: ACETAMINOPHEN 650MG ER TAB (TYLENOL ARTHRITIS) PO PRN (23:00)
[2019-05-06] MEDS ORDERED: NITROGLYCERIN 0.3 MG SUBL TAB SL PRN (23:00)
[2019-05-06] MEDS ORDERED: ASPIRIN 81 MG CHEW TABLET PO ONE (23:00)
[2019-05-06 23:55] LABS: HEMOGLOBIN A1c 6.1 %
[2019-05-06] MEDS: HYDROCORTISONE 10 MG TAB PO SCH (23:57)
[2019-05-07] VITALS (14 sets, daily range): BP systolic 60–132; BP diastolic 38–78; O2SAT 94–99
[2019-05-07 00:19] LABS: CK-MB VALUE MASS < 1.0 NG/ML (<3.6); CPK CREATINE PHOSPHOKINASE 40 U/L (39-308); TROPONIN I < 0.02 NG/ML (< 0.10)
[2019-05-07] MEDS: FUROSEMIDE 40 MG/4 ML VIAL (J1940) IV SCH ×3 (01:35→21:00)
[2019-05-07 06:49] LABS: HEMATOCRIT 30.8 % (42.0-52.0); HEMOGLOBIN 9.9 g/dl (13.5-17.5); MEAN CORPUSCULAR HEMOGLOBIN 28.9 pg (27.0-33.0); MEAN CORPUSCULAR HGB CONC 32.1 g/dl (32.0-36.5); MEAN CORPUSCULAR VOLUME 89.8 fl (80.0-96.0); PLATELET COUNT, AUTOMATED 258 10^3/uL (150-450); RED BLOOD COUNT 3.43 10^6/uL (4.30-6.10); WHITE BLOOD COUNT 10.4 10^3/uL (4.0-10.0)
[2019-05-07 07:11] LABS: ALBUMIN 2.5 GM/DL (3.2-5.2); BILIRUBIN,TOTAL 0.8 MG/DL (0.2-1.0); CALCIUM LEVEL 8.9 MG/DL (8.8-10.2); CREATININE FOR GFR 1.65 MG/DL (0.70-1.30); GLOMERULAR FILTRATION RATE 43.8 (>42); POTASSIUM SERUM 3.8 MEQ/L (3.5-5.1); TOTAL PROTEIN 6.6 GM/DL (6.4-8.2)
[2019-05-07] MEDS: HumaLOG INSULIN (NovoLOG) PER UNIT SC SCH ×4 (07:30→21:00)
[2019-05-07] MEDS ORDERED: MAGNESIUM CHLORIDE 64 MG TABCR (SLO MAG) PO SCH ×2 (09:00→09:31)
[2019-05-07] MEDS ORDERED: TORSEMIDE 20 MG TAB PO SCH (09:00)
[2019-05-07] MEDS ORDERED: SPIRONOLACTONE 25 MG TAB PO SCH (09:00)
[2019-05-07] MEDS: HYDROCORTISONE 10 MG TAB PO SCH ×2 (09:27→21:51)
[2019-05-07] MEDS: LACTOBACILLUS ACIDOPHILUS CAP (BACID) PO SCH (09:27)
[2019-05-07] MEDS: FLUoxetine 20 MG CAP PO SCH (09:27)
[2019-05-07] MEDS: GABAPENTIN 300 MG CAP PO SCH (09:27)
[2019-05-07] MEDS: FEBUXOSTAT 40 MG TABLET (ULORIC) PO SCH (09:27)
[2019-05-07] MEDS: OMEPRAZOLE 20 MG CAP PO SCH ×2 (09:28→21:51)
[2019-05-07] MEDS: APIXABAN 5 MG TAB (ELIQUIS) PO SCH ×2 (09:28→21:51)
[2019-05-07] MEDS: MULTIVITAMINS/MINERALS THERAP 1 TAB PO SCH (09:28)
[2019-05-07] MEDS: CYANOCOBALAMIN 500 MCG TAB PO SCH (09:28)
[2019-05-07] MEDS: FAMOTIDINE 20 MG TAB PO SCH ×2 (09:28→21:52)
[2019-05-07] MEDS: FERROUS GLUCONATE 324 MG TAB PO SCH ×2 (09:28→17:34)
[2019-05-07] MEDS: ASPIRIN 81 MG ENTERIC TAB PO SCH (09:28)
[2019-05-07] MEDS: METOPROLOL SUCC *XL* 25MG TAB (TopROL *XL*) PO SCH (09:29)
[2019-05-07] MEDS: oxyBUTYnin *DITROPAN XL* 5 MG TABCR PO SCH (09:33)
[2019-05-07] MEDS: ANEXSIA, NORCO 7.5MG/325MG TABLET(HYDROCODONE/APAP) PO PRN ×2 (09:34→17:35)
[2019-05-07] MEDS: MAGNESIUM CHLORIDE 64 MG TABCR (SLO MAG) PO SCH (09:52)
[2019-05-07] MEDS: LIDOCAINE 5% (LIDODERM) PATCH TD SCH (10:48)
--- NOTE | 2019-05-07 17:48 | IPNPDOC ---
Subjective Date Seen The patient was seen on 05/07/19. Subjective Chief Complaint/HPI shortness of breath Events since last encounter Pt c/o mild shortness of breath and mild diffuse abdominal and chronic lower back pain Objective Physical Examination General Exam: Positive: Alert, Cooperative, No Acute Distress ENT Exam: Positive: Mucous membr. moist/pink Chest Exam: Positive: Other (b/l decresed breath sounds ) Heart Exam: Positive: Irregular Rhythm Telemetry: Positive: Atrial fibrillation Abdomen Exam: Positive: Normal bowel sounds, Soft Skin Exam: Positive: Nl turgor and temperature Neuro Exam: Positive: Normal Speech, Strength at 5/5 X4 ext Psych Exam: Positive: Mental status NL Assessment /Plan Assessment 73 y/o M with h/o CHF, AFib initially came c/o shortness of breath and chest tightness was admitted with impression of CHF exacerbation Labs reviewed PLAN: 1. Acute Systolic Congestive heart failure most probably secondary to medication and dietary non compliance Lasix 60 mg every 12 hours Strict fluid restriction to 2000cc/day, I/O's, daily weights continue home Metoprolol, Entresto, Torsemide & Spironolactone 2. Acute on Chronic Kidney Disease, Stage III -possibly due to type 1 cardiorenal syndrome -Cr currently 1.9, was 2.26 yesterday when he left the hospital. Appears that his baseline is around 1.4. -Gentle diuresis for now -Patient has biopsy-proven lupus membranous nephritis. Reportedly, was previously on immunosuppression, but this was stopped due to side effect. -Continue Hydrocortisone 3. Shortness of breath: most probably secondary to fluid overload -No evidence of pneumonia on chest x-ray. However, patient did have low-grade fever in ED of 100.4. -WBC is not elevated. He reports he is coughing and producing yellowish sputum. -will f/u sputum cultures -Blood cultures pending. Influenza negative. -Continuous pulse oximetry, oxygen titration orders 4. Atrial fibrillation -Rate is controlled at this time home metoprolol succinate and Eliquis 5. Interstitial lung disease with chronic hypoxic respiratory failure -on oxygen at home, 4 L -home inhalers 6. Abdominal pain: CT abdomen pelvis without contrast- mild distension of proximal small bowel with a few air fluid levels On physical examination there was no tenderness, normal bowel sounds heard and pt also had a bowel movement today morning. will continue to monitor and will advance diet as tolerated. ileus or low grade obstruction or enteritis least likely 7. T2DM: -A1C 6.1% -monitor serum glucose -SSI with hypoglycemic protocol 8. Chronic back pain: -Takes [place] at home. home meds lidocaine patch 9. CAD: Aspirin, Atorvastatin & Metoprolol 10. Hx GERD/ Marcial's esophagus: Omeprazole 11. Anemia -possibly 2/2 iron deficiency vs B12 def vs anemia of chronic kidney disease iron, B12 supplementation 12. History of Gout: Febuxostat 13. Mood disorder: -Continue Remeron 14. Sleep disorder: -Patient takes Ambien at home but this will be temporarily held DVT ppx: Patient is on Eliquis Plan/VTE VTE Prophylaxis Ordered?: Yes VS, I&O, 24H, Fishbone Vital Signs/I&O Vital Signs Date Time Temp Pulse Resp B/P (MAP) Pulse Ox O2 Delivery O2 Flow Rate FiO2 05/07/19 17:35 20 05/07/19 14:00 97.0 74 100/70 (80) 96 Room Air 05/07/19 09:00 2.0 I&O- Last 24 Hours up to 6 AM 05/07/19 06:00 Intake Total 0 ml Output Total 280 ml Balance -280 ml Laboratory Data 24H LABS Laboratory Tests 2 05/06/19 21:21: Lactic Acid Followup at 4 Hours 1.5 05/06/19 22:14: Bedside Glucose (Misc Panel) 100 05/06/19 23:24: Estimated Mean Plasma Glucose 128H, Hemoglobin A1c 6.1, Total Creatine Kinase 40, Creatine Kinase MB < 1.0, Creatine Kinase MB Relative Index 2.50, Troponin I < 0.02 05/07/19 06:04: Nucleated Red Blood Cells % (auto) 0.0, Anion Gap 8, Glomerular Filtration Rate 43.8, Calcium Level 8.9, Total Bilirubin 0.8#, Aspartate Amino Transf (AST/SGOT) 14, Alanine Aminotransferase (ALT/SGPT) 19, Alkaline Phosphatase 126H, Total Protein 6.6, Albumin 2.5L, Albumin/Globulin Ratio 0.61L 05/07/19 11:35: Bedside Glucose (Misc Panel) 77L 05/07/19 12:17: Bedside Glucose (Misc Panel) 93 05/07/19 16:18: Bedside Glucose (Misc Panel) 152H CBC/BMP Laboratory Tests 05/07/19 06:04 Microbiology Microbiology 05/06/19 Respiratory Virus Panel (PCR) (DANNY) - Final, Complete 05/06/19 Blood Culture - Preliminary, Resulted No growth after 24 hours . All specim... FANTA THOMSAON MD May 07, 2019 17:48
[2019-05-07] MEDS: **NOTE PATIENT COMMENT** MISC XX SCH (21:00)
[2019-05-07] MEDS: ACETAMINOPHEN TAB 650MG DOSE (2X325MG) PO PRN (21:51)
[2019-05-07] MEDS: ENTRESTO 24-26MG TABLET (SACUBITRIL/VALSARTAN) PO SCH (21:51)
[2019-05-07] MEDS: TAMSULOSIN 0.4 MG CAP PO SCH (21:51)
[2019-05-07] MEDS: ATORVASTATIN 20 MG TAB PO SCH (21:51)
[2019-05-07] MEDS: MIRTAZAPINE 15 MG TAB PO SCH (21:52)
[2019-05-07] MEDS ORDERED: NS 500 ML IV ONE (23:00)
[2019-05-07] MEDS ORDERED: SODIUM CHLORIDE 0.9% 1000ML IV STA (23:21)
[2019-05-08] VITALS (42 sets, daily range): BP systolic 69–126; BP diastolic 44–76; O2SAT 93–97
[2019-05-08] MEDS ORDERED: NS 500 ML IV ONE ×2 (01:00)
[2019-05-08] MEDS ORDERED: NS 1,000 ML IV ONE (02:00)
[2019-05-08 05:04] LABS: HEMATOCRIT 29.1 % (42.0-52.0); HEMOGLOBIN 8.9 g/dl (13.5-17.5); MEAN CORPUSCULAR HEMOGLOBIN 28.5 pg (27.0-33.0); MEAN CORPUSCULAR HGB CONC 30.6 g/dl (32.0-36.5); MEAN CORPUSCULAR VOLUME 93.3 fl (80.0-96.0); PLATELET COUNT, AUTOMATED 244 10^3/uL (150-450); RED BLOOD COUNT 3.12 10^6/uL (4.30-6.10); WHITE BLOOD COUNT 7.8 10^3/uL (4.0-10.0)
[2019-05-08 05:33] LABS: ALBUMIN 2.2 GM/DL (3.2-5.2); BILIRUBIN,TOTAL 0.3 MG/DL (0.2-1.0); CALCIUM LEVEL 8.3 MG/DL (8.8-10.2); CREATININE FOR GFR 1.74 MG/DL (0.70-1.30); GLOMERULAR FILTRATION RATE 41.1 (>42); POTASSIUM SERUM 3.5 MEQ/L (3.5-5.1); TOTAL PROTEIN 5.8 GM/DL (6.4-8.2)
[2019-05-08] MEDS: HumaLOG INSULIN (NovoLOG) PER UNIT SC SCH ×4 (07:30→21:00)
[2019-05-08] MEDS: FERROUS GLUCONATE 324 MG TAB PO SCH ×2 (08:00→17:49)
[2019-05-08] MEDS: HYDROCORTISONE 10 MG TAB PO SCH ×2 (08:26→20:25)
[2019-05-08] MEDS: FAMOTIDINE 20 MG TAB PO SCH ×2 (08:26→20:25)
[2019-05-08] MEDS: ASPIRIN 81 MG ENTERIC TAB PO SCH (08:27)
[2019-05-08] MEDS: FLUoxetine 20 MG CAP PO SCH (08:27)
[2019-05-08] MEDS: ACETAMINOPHEN TAB 650MG DOSE (2X325MG) PO PRN (08:27)
[2019-05-08] MEDS: GABAPENTIN 300 MG CAP PO SCH (08:27)
[2019-05-08] MEDS: LACTOBACILLUS ACIDOPHILUS CAP (BACID) PO SCH (08:28)
[2019-05-08] MEDS: APIXABAN 5 MG TAB (ELIQUIS) PO SCH ×2 (08:28→20:25)
[2019-05-08] MEDS: MULTIVITAMINS/MINERALS THERAP 1 TAB PO SCH (08:28)
[2019-05-08] MEDS: CYANOCOBALAMIN 500 MCG TAB PO SCH (08:28)
[2019-05-08] MEDS: OMEPRAZOLE 20 MG CAP PO SCH ×2 (08:28→20:25)
[2019-05-08] MEDS: MAGNESIUM CHLORIDE 64 MG TABCR (SLO MAG) PO SCH (08:29)
[2019-05-08] MEDS: METOPROLOL SUCC *XL* 25MG TAB (TopROL *XL*) PO SCH (08:29)
[2019-05-08] MEDS: LIDOCAINE 5% (LIDODERM) PATCH TD SCH (08:30)
[2019-05-08] MEDS: FUROSEMIDE 40 MG/4 ML VIAL (J1940) IV SCH ×3 (09:00→20:26)
[2019-05-08] MEDS: oxyBUTYnin *DITROPAN XL* 5 MG TABCR PO SCH (10:41)
[2019-05-08] MEDS: FEBUXOSTAT 40 MG TABLET (ULORIC) PO SCH (12:14)
--- NOTE | 2019-05-08 14:03 | IPNPDOC ---
Subjective Date Seen The patient was seen on 05/08/19. Subjective Chief Complaint/HPI shortness of breath Events since last encounter over the night pt had one episode of mild hypotension, lasix was kept on hold, was given ivf and transferred to ICU. Pt c/o diffuse left sided abdominal pain and chronic lower back pain and asked for pain meds. Pt was informed that narcotic pain meds are contraindicated due to hypotension. After holding his narcotics pain meds; his BP improved and pt was transferred b [facility] to medical floor Objective Physical Examination General Exam: Positive: Alert, Cooperative, No Acute Distress ENT Exam: Positive: Mucous membr. moist/pink Chest Exam: Positive: Other (b/l decresed breath sounds and b/l basal crepitations ) Heart Exam: Positive: Irregular Rhythm Telemetry: Positive: Atrial fibrillation Abdomen Exam: Positive: Normal bowel sounds, Soft Extremity Exam: Positive: Other (b/l lower extremities pitting pedal edema ) Skin Exam: Positive: Nl turgor and temperature Neuro Exam: Positive: Normal Speech, Strength at 5/5 X4 ext Psych Exam: Positive: Mental status NL Assessment /Plan Assessment 73 y/o M with h/o CHF, AFib initially came c/o shortness of breath and chest tightness was admitted with impression of CHF exacerbation Labs reviewed PLAN: 1. Acute Systolic Congestive heart failure most probably secondary to medication and dietary non compliance improving will continue Lasix 60 mg every 12 hours Strict fluid restriction to 2000cc/day, I/O's, daily weights continue home Metoprolol, Entresto, Torsemide & Spironolactone 2. Acute on Chronic Kidney Disease, Stage III -possibly due to type 1 cardiorenal syndrome -Cr currently 1.9, was 2.26 yesterday when he left the hospital. Appears that his baseline is around 1.4. -Gentle diuresis for now -Patient has biopsy-proven lupus membranous nephritis. Reportedly, was previously on immunosuppression, but this was stopped due to side effect. -Continue Hydrocortisone 3. Shortness of breath: improving was most probably secondary to fluid overload -No evidence of pneumonia on chest x-ray. However, patient did have low-grade fever in ED of 100.4. -WBC is not elevated. He reports he is coughing and producing yellowish sputum. -will f/u sputum cultures -Blood cultures pending. Influenza negative. -Continuous pulse oximetry, oxygen titration orders 4. Atrial fibrillation -Rate is controlled at this time home metoprolol succinate and Eliquis 5. Interstitial lung disease with chronic hypoxic respiratory failure -on oxygen at home, 4 L -home inhalers 6. Abdominal pain: resolved ileus or low grade obstruction or enteritis least likely CT abdomen pelvis without contrast- mild distension of proximal small bowel with a few air fluid levels On physical examination there was no tenderness, normal bowel sounds heard and pt also had a bowel movement today morning. Tolerating regular diet 7. T2DM: -A1C 6.1% -monitor serum glucose -SSI with hypoglycemic protocol 8. Chronic back pain: -Takes [place] at home. home meds lidocaine patch 9. CAD: Aspirin, Atorvastatin & Metoprolol 10. Hx GERD/ Marcial's esophagus: Omeprazole 11. Anemia -possibly 2/2 iron deficiency vs B12 def vs anemia of chronic kidney disease iron, B12 supplementation 12. History of Gout: Febuxostat 13. Mood disorder: -Continue Remeron 14. Sleep disorder: -Patient takes Ambien at home but this will be temporarily held DVT ppx: Eliquis Plan/VTE VTE Prophylaxis Ordered?: Yes VS, I&O, 24H, Fishbone Vital Signs/I&O Vital Signs Date Time Temp Pulse Resp B/P (MAP) Pulse Ox O2 Delivery O2 Flow Rate FiO2 05/08/19 12:01 97.0 69 18 93/52 (66) 97 Nasal Cannula 2.0 I&O- Last 24 Hours up to 6 AM 05/08/19 05:59 Intake Total 2580 ml Output Total 2100 ml Balance 480 ml Laboratory Data 24H LABS Laboratory Tests 2 05/07/19 16:18: Bedside Glucose (Misc Panel) 152H 05/07/19 19:55: Bedside Glucose (Misc Panel) 90 05/08/19 00:32: Bedside Glucose (Misc Panel) 108 05/08/19 04:45: Nucleated Red Blood Cells % (auto) 0.0, Anion Gap 7L, Glomerular Filtration Rate 41.1L, Calcium Level 8.3L, Total Bilirubin 0.3#, Aspartate Amino Transf (AST/SGOT) 22, Alanine Aminotransferase (ALT/SGPT) 26, Alkaline Phosphatase 118H, Total Protein 5.8L, Albumin 2.2L, Albumin/Globulin Ratio 0.61L 05/08/19 08:45: Bedside Glucose (Misc Panel) 102 05/08/19 12:41: Bedside Glucose (Misc Panel) 131H CBC/BMP Laboratory Tests 05/08/19 04:45 Microbiology Microbiology 05/06/19 Respiratory Virus Panel (PCR) (DANNY) - Final, Complete 05/06/19 Blood Culture - Preliminary, Resulted No growth after 24 hours . All specim... FANTA THOMASON MD May 08, 2019 14:03
[2019-05-08] MEDS: ANEXSIA, NORCO 7.5MG/325MG TABLET(HYDROCODONE/APAP) PO PRN (17:49)
[2019-05-08] MEDS: TAMSULOSIN 0.4 MG CAP PO SCH (20:25)
[2019-05-08] MEDS: ENTRESTO 24-26MG TABLET (SACUBITRIL/VALSARTAN) PO SCH (20:25)
[2019-05-08] MEDS: ATORVASTATIN 20 MG TAB PO SCH (20:25)
[2019-05-08] MEDS: MIRTAZAPINE 15 MG TAB PO SCH (20:25)
[2019-05-08] MEDS: **NOTE PATIENT COMMENT** MISC XX SCH (20:26)
[2019-05-08 22:21] LABS: CALCIUM LEVEL 8.7 MG/DL (8.8-10.2); CREATININE FOR GFR 1.57 MG/DL (0.70-1.30); GLOMERULAR FILTRATION RATE 46.3 (>42); MAGNESIUM LEVEL 1.9 MG/DL (1.8-2.4); POTASSIUM SERUM 4.2 MEQ/L (3.5-5.1)
[2019-05-09] MEDS: ACETAMINOPHEN TAB 650MG DOSE (2X325MG) PO PRN (00:41)
[2019-05-09 03:04] VITALS: O2SAT 98
[2019-05-09] MEDS: ANEXSIA, NORCO 7.5MG/325MG TABLET(HYDROCODONE/APAP) PO PRN ×2 (03:10→12:34)
[2019-05-09 06:14] LABS: HEMATOCRIT 31.4 % (42.0-52.0); HEMOGLOBIN 9.6 g/dl (13.5-17.5); MEAN CORPUSCULAR HEMOGLOBIN 28.2 pg (27.0-33.0); MEAN CORPUSCULAR HGB CONC 30.6 g/dl (32.0-36.5); MEAN CORPUSCULAR VOLUME 92.4 fl (80.0-96.0); PLATELET COUNT, AUTOMATED 297 10^3/uL (150-450); WHITE BLOOD COUNT 6.6 10^3/uL (4.0-10.0)
[2019-05-09 06:43] LABS: ALBUMIN 2.4 GM/DL (3.2-5.2); BILIRUBIN,TOTAL 0.4 MG/DL (0.2-1.0); CALCIUM LEVEL 8.7 MG/DL (8.8-10.2); CREATININE FOR GFR 1.4 MG/DL (0.70-1.30); GLOMERULAR FILTRATION RATE 52.9 (>42); POTASSIUM SERUM 3.5 MEQ/L (3.5-5.1); TOTAL PROTEIN 6.1 GM/DL (6.4-8.2)
--- NOTE | 2019-05-09 08:34 | REP ---
Portable chest x-ray: Single view. History: Possible fluid overload. Comparison study: May 06, 2019. Findings: Monitoring electrodes are visible. Along with oxygen delivery tubing. There is pleuroparenchymal fibrosis in the left lung base again noted unchanged. Moderate cardiomegaly is noted unchanged. Pulmonary vasculature is cephalized although improved from May 06, 2019. No free pleural effusion or diffuse pulmonary edema seen. Electronically Signed by Mustapha Brown MD 05/09/2019 08:26 A
[2019-05-09] MEDS: MULTIVITAMINS/MINERALS THERAP 1 TAB PO SCH (08:38)
[2019-05-09] MEDS: MAGNESIUM CHLORIDE 64 MG TABCR (SLO MAG) PO SCH (08:38)
[2019-05-09] MEDS: HumaLOG INSULIN (NovoLOG) PER UNIT SC SCH ×4 (08:38→21:00)
[2019-05-09] MEDS: FAMOTIDINE 20 MG TAB PO SCH ×2 (08:39→21:45)
[2019-05-09] MEDS: FLUoxetine 20 MG CAP PO SCH (08:39)
[2019-05-09] MEDS: CYANOCOBALAMIN 500 MCG TAB PO SCH (08:39)
[2019-05-09] MEDS: FERROUS GLUCONATE 324 MG TAB PO SCH ×2 (08:39→17:40)
[2019-05-09] MEDS: APIXABAN 5 MG TAB (ELIQUIS) PO SCH ×2 (08:39→21:45)
[2019-05-09] MEDS: OMEPRAZOLE 20 MG CAP PO SCH ×2 (08:39→21:45)
[2019-05-09] MEDS: FEBUXOSTAT 40 MG TABLET (ULORIC) PO SCH (08:39)
[2019-05-09] MEDS: oxyBUTYnin *DITROPAN XL* 5 MG TABCR PO SCH (08:39)
[2019-05-09] MEDS: GABAPENTIN 300 MG CAP PO SCH (08:40)
[2019-05-09] MEDS: ASPIRIN 81 MG ENTERIC TAB PO SCH (08:40)
[2019-05-09] MEDS: LACTOBACILLUS ACIDOPHILUS CAP (BACID) PO SCH (08:40)
[2019-05-09] MEDS: HYDROCORTISONE 10 MG TAB PO SCH ×2 (08:40→22:07)
[2019-05-09] MEDS: FUROSEMIDE 40 MG/4 ML VIAL (J1940) IV SCH ×2 (08:40→21:00)
[2019-05-09] MEDS: LIDOCAINE 5% (LIDODERM) PATCH TD SCH (08:41)
[2019-05-09] MEDS: METOPROLOL SUCC *XL* 25MG TAB (TopROL *XL*) PO SCH (08:41)
[2019-05-09 14:00] VITALS: BP 123/73
--- NOTE | 2019-05-09 18:10 | IPNPDOC ---
Subjective Date Seen The patient was seen on 05/09/19. Subjective Chief Complaint/HPI shortness of breath Events since last encounter Pt stated that his shortness of breath has significantly improved c/o chronic lower back pain Objective Physical Examination General Exam: Positive: Alert, Cooperative, No Acute Distress Eye Exam: Positive: PERRLA ENT Exam: Positive: Mucous membr. moist/pink Chest Exam: Positive: Other (b/l decresed breath sounds and b/l basal crepitations ) Heart Exam: Positive: Irregular Rhythm Telemetry: Positive: Atrial fibrillation Abdomen Exam: Positive: Normal bowel sounds, Soft Extremity Exam: Positive: Other (b/l lower extremities pitting pedal edema - improving ) Skin Exam: Positive: Nl turgor and temperature Neuro Exam: Positive: Normal Speech, Strength at 5/5 X4 ext Psych Exam: Positive: Mental status NL, Mood NL Assessment /Plan Assessment 73 y/o M with h/o CHF, AFib initially came c/o shortness of breath and chest tightness was admitted with impression of CHF exacerbation Labs reviewed PLAN: 1. Acute Systolic Congestive heart failure most probably secondary to medication and dietary non compliance improving will continue Lasix 60 mg every 12 hours Strict fluid restriction to 2000cc/day, I/O's, daily weights continue home Metoprolol, Entresto, Torsemide & Spironolactone 2. Acute on Chronic Kidney Disease, Stage III -possibly due to type 1 cardiorenal syndrome -improving -Gentle diuresis for now -Patient has biopsy-proven lupus membranous nephritis. Reportedly, was previously on immunosuppression, but this was stopped due to side effect. -Continue Hydrocortisone 3. Shortness of breath: improving was most probably secondary to fluid overload -No evidence of pneumonia on chest x-ray. However, patient did have low-grade fever in ED of 100.4. -WBC is not elevated. -will f/u sputum cultures -Blood cultures pending. Influenza negative. -Continuous pulse oximetry, oxygen titration orders 4. Atrial fibrillation -Rate is controlled home metoprolol succinate and Eliquis 5. Interstitial lung disease with chronic hypoxic respiratory failure -on oxygen at home, 4 L -home inhalers 6. Abdominal pain: resolved ileus or low grade obstruction or enteritis least likely CT abdomen pelvis without contrast- mild distension of proximal small bowel with a few air fluid levels On physical examination there was no tenderness, normal bowel sounds heard and pt also had a bowel movement today morning. Tolerating regular diet 7. T2DM: -A1C 6.1% -monitor serum glucose -SSI with hypoglycemic protocol 8. Chronic back pain: -Takes [place] at home. home meds [place] at lower dose in view of episode of hypotension during hospitalization while on iv lasix lidocaine patch 9. CAD: Aspirin, Atorvastatin & Metoprolol 10. Hx GERD/ Marcial's esophagus: Omeprazole 11. Anemia -possibly 2/2 iron deficiency vs B12 def vs anemia of chronic kidney disease iron, B12 supplementation 12. History of Gout: Febuxostat 13. Mood disorder: -Continue Remeron 14. Sleep disorder: -Patient takes Ambien at home but this will be temporarily held DVT ppx: Eliquis If pt clinical condition continues to improve- possible discharge tomorrow Plan/VTE VTE Prophylaxis Ordered?: Yes VS, I&O, 24H, Fishbone Vital Signs/I&O Vital Signs Date Time Temp Pulse Resp B/P (MAP) Pulse Ox O2 Delivery O2 Flow Rate FiO2 05/09/19 14:00 97.9 71 19 123/73 (90) 99 Nasal Cannula 3.0 I&O- Last 24 Hours up to 6 AM 05/09/19 05:59 Intake Total 1380 ml Output Total 2975 ml Balance -1595 ml Laboratory Data 24H LABS Laboratory Tests 2 05/08/19 20:43: Bedside Glucose (Misc Panel) 83 05/08/19 21:48: Anion Gap 7L, Glomerular Filtration Rate 46.3, Calcium Level 8.7L, Magnesium Level 1.9 05/09/19 05:54: Anion Gap 7L, Glomerular Filtration Rate 52.9, Calcium Level 8.7L, Nucleated Red Blood Cells % (auto) 0.0, Total Bilirubin 0.4, Aspartate Amino Transf (AST/SGOT) 27, Alanine Aminotransferase (ALT/SGPT) 33, Alkaline Phosphatase 122H, Total Protein 6.1L, Albumin 2.4L, Albumin/Globulin Ratio 0.65L 05/09/19 11:29: Bedside Glucose (Misc Panel) 77L 05/09/19 16:33: Bedside Glucose (Misc Panel) 133H CBC/BMP Laboratory Tests 05/08/19 21:48 05/09/19 05:54 Microbiology Microbiology 05/06/19 Respiratory Virus Panel (PCR) (DANNY) - Final, Complete 05/06/19 Blood Culture - Preliminary, Resulted No Growth after 72 hours. All specime... FANTA THOMASON MD May 09, 2019 18:10
[2019-05-09 21:00] VITALS: O2SAT 98
[2019-05-09] MEDS: **NOTE PATIENT COMMENT** MISC XX SCH (21:00)
[2019-05-09] MEDS: ENTRESTO 24-26MG TABLET (SACUBITRIL/VALSARTAN) PO SCH (21:45)
[2019-05-09] MEDS: ATORVASTATIN 20 MG TAB PO SCH (21:45)
[2019-05-09] MEDS: MIRTAZAPINE 15 MG TAB PO SCH (21:45)
[2019-05-09] MEDS: TAMSULOSIN 0.4 MG CAP PO SCH (21:45)
[2019-05-09 21:53] VITALS: BP 96/56
[2019-05-09 22:00] VITALS: BP 120/68
[2019-05-09] MEDS: NORCO, ANEXSIA 5/325MG TABLET (HYDROcodone/ACETAMINOPHEN) PO PRN (22:14)
[2019-05-10] VITALS (10 sets, daily range): BP systolic 102–150; BP diastolic 67–91; O2SAT 97–98
[2019-05-10 06:36] LABS: HEMATOCRIT 31.2 % (42.0-52.0); HEMOGLOBIN 9.6 g/dl (13.5-17.5); MEAN CORPUSCULAR HEMOGLOBIN 28.8 pg (27.0-33.0); MEAN CORPUSCULAR HGB CONC 30.8 g/dl (32.0-36.5); MEAN CORPUSCULAR VOLUME 93.7 fl (80.0-96.0); PLATELET COUNT, AUTOMATED 300 10^3/uL (150-450); RED BLOOD COUNT 3.33 10^6/uL (4.30-6.10); WHITE BLOOD COUNT 5.5 10^3/uL (4.0-10.0)
[2019-05-10 06:58] LABS: ALBUMIN 2.3 GM/DL (3.2-5.2); BILIRUBIN,TOTAL 0.3 MG/DL (0.2-1.0); CALCIUM LEVEL 8.8 MG/DL (8.8-10.2); CREATININE FOR GFR 1.3 MG/DL (0.70-1.30); GLOMERULAR FILTRATION RATE 57.6 (>42); POTASSIUM SERUM 3.6 MEQ/L (3.5-5.1)
[2019-05-10] MEDS: NORCO, ANEXSIA 5/325MG TABLET (HYDROcodone/ACETAMINOPHEN) PO PRN ×3 (07:22→22:17)
--- NOTE | 2019-05-10 08:05 | IPNPDOC ---
Subjective Date Seen The patient was seen on 05/10/19. Subjective Chief Complaint/HPI He had no overnight events, his Lasix was held due to low blood pressure. Objective Physical Examination General Exam: Positive: Alert, Cooperative, No Acute Distress Eye Exam: Positive: PERRLA ENT Exam: Positive: Mucous membr. moist/pink Chest Exam: Positive: Other (b/l decresed breath sounds and b/l basal crepitations ) Heart Exam: Positive: Irregular Rhythm Telemetry: Positive: Atrial fibrillation Abdomen Exam: Positive: Normal bowel sounds, Soft Extremity Exam: Positive: Other (b/l lower extremities pitting pedal edema - improving ) Skin Exam: Positive: Nl turgor and temperature Neuro Exam: Positive: Normal Speech, Strength at 5/5 X4 ext Psych Exam: Positive: Mental status NL, Mood NL Other physical findings PHYSICAL EXAMINATION: VITAL SIGNS: Please see below. GENERAL: No distress HEENT: Normocephalic, atraumatic, moist mucous membranes NECK: Supple CARDIOVASCULAR EXAMINATION: S1, S2 RESPIRATORY EXAMINATION: Trace crackles at base ABDOMINAL EXAMINATION: Soft, nontender, nondistended, positive bowel sounds EXTREMITIES: no edema SKIN: No rash NEUROLOGICAL EXAMINATION: Alert and oriented 3, no focal deficits PSYCHIATRIC EXAMINATION: Calm and cooperative, appropriate affect Assessment /Plan Assessment Pt is a 73 yo M with hx of CHF (Echo 10/2018) with mod pHTN, AFib on anticoag initially presented with SOB and admitted with CHF exacerbation due to non- compliance. #Acute Systolic Congestive heart failure most probably secondary to medication and dietary non compliance, transition to patient to by mouth medications, increased patients home torsemide dose to 40 twice a day, continued sp ironolactone dose, cont entresto, fluid restriction management #Acute on Chronic Kidney Disease, Stage III/ lupus membranous nephritis: continue home med #Atrial fibrillation: cont home meds #Interstitial lung disease with chronic hypoxic respiratory failure, pt is on 2- 4 L at home but is able to tolerate RA, cont home inhalers, influ screen neg, respiratory panel negative, blood cultures 05/06 negative #Abdominal pain:resolved, possible ileus or low grade obstruction or enteritis #T2DM: A1C 6.1%, ISS #HTN: cont home med #Chronic back pain: continue home Tad and lidocaine patch #CAD: continue home Aspirin, Atorvastatin & Metoprolol #Hx GERD/ Marcial's esophagus: continue home med, will need to change home ranitidine to Famotidine due to recall #Anemia: 2/2 iron deficiency vs B12 def vs anemia of chronic kidney disease, MCV wnl: cont home iron, B12 supplementation #hx of Gout: cont home Febuxostat #BPH: cont home med #Mood disorder: Continue Remeron #Sleep disorder: continue home Ambien DVT ppx: Eliquis Full code If pt clinical condition continues to improve and tolerate po- discharge tomorrow 05/11 Plan/VTE VTE Prophylaxis Ordered?: Yes VS, I&O, 24H, Fishbone Vital Signs/I&O Vital Signs Date Time Temp Pulse Resp B/P (MAP) Pulse Ox O2 Delivery O2 Flow Rate FiO2 05/10/19 07:22 18 05/10/19 06:00 96.8 61 126/87 (100) 97 Nasal Cannula 1.0 I&O- Last 24 Hours up to 6 AM 05/10/19 06:00 Intake Total 1500 ml Output Total 1425 ml Balance 75 ml Laboratory Data 24H LABS Laboratory Tests 2 05/09/19 11:29: Bedside Glucose (Misc Panel) 77L 05/09/19 16:33: Bedside Glucose (Misc Panel) 133H 05/09/19 20:35: Bedside Glucose (Misc Panel) 119H 05/10/19 05:45: Nucleated Red Blood Cells % (auto) 0.0, Anion Gap 6L, Glomerular Filtration Rate 57.6, Calcium Level 8.8, Total Bilirubin 0.3, Aspartate Amino Transf (AST/SGOT) 21, Alanine Aminotransferase (ALT/SGPT) 32, Alkaline Phosphatase 111, Total Protein 6.0L, Albumin 2.3L, Albumin/Globulin Ratio 0.62L CBC/BMP Laboratory Tests 05/10/19 05:45 Microbiology Microbiology 05/06/19 Respiratory Virus Panel (PCR) (DANNY) - Final, Complete 05/06/19 Blood Culture - Preliminary, Resulted No Growth after 72 hours. All specime... ISAEL EDWARD MD May 10, 2019 08:05
[2019-05-10] MEDS: OMEPRAZOLE 20 MG CAP PO SCH ×2 (08:55→20:23)
[2019-05-10] MEDS: GABAPENTIN 300 MG CAP PO SCH (08:56)
[2019-05-10] MEDS: FEBUXOSTAT 40 MG TABLET (ULORIC) PO SCH (08:56)
[2019-05-10] MEDS: APIXABAN 5 MG TAB (ELIQUIS) PO SCH ×2 (08:57→20:24)
[2019-05-10] MEDS: HumaLOG INSULIN (NovoLOG) PER UNIT SC SCH ×4 (08:57→20:24)
[2019-05-10] MEDS: MAGNESIUM CHLORIDE 64 MG TABCR (SLO MAG) PO SCH (08:57)
[2019-05-10] MEDS: METOPROLOL SUCC *XL* 25MG TAB (TopROL *XL*) PO SCH (08:59)
[2019-05-10] MEDS: MULTIVITAMINS/MINERALS THERAP 1 TAB PO SCH (09:00)
[2019-05-10] MEDS: CYANOCOBALAMIN 500 MCG TAB PO SCH (09:00)
[2019-05-10] MEDS: FERROUS GLUCONATE 324 MG TAB PO SCH ×2 (09:00→17:03)
[2019-05-10] MEDS: LACTOBACILLUS ACIDOPHILUS CAP (BACID) PO SCH (09:00)
[2019-05-10] MEDS ORDERED: FUROSEMIDE 40 MG/4 ML VIAL (J1940) IV SCH (09:00)
[2019-05-10] MEDS: ASPIRIN 81 MG ENTERIC TAB PO SCH (09:00)
[2019-05-10] MEDS: HYDROCORTISONE 10 MG TAB PO SCH ×2 (09:00→20:23)
[2019-05-10] MEDS: FAMOTIDINE 20 MG TAB PO SCH ×2 (09:00→20:24)
[2019-05-10] MEDS: oxyBUTYnin *DITROPAN XL* 5 MG TABCR PO SCH (09:00)
[2019-05-10] MEDS: FLUoxetine 20 MG CAP PO SCH (09:01)
[2019-05-10] MEDS: LIDOCAINE 5% (LIDODERM) PATCH TD SCH (09:01)
[2019-05-10] MEDS: TORSEMIDE 20 MG TAB PO SCH (17:03)
[2019-05-10] MEDS: MIRTAZAPINE 15 MG TAB PO SCH (20:23)
[2019-05-10] MEDS: ENTRESTO 24-26MG TABLET (SACUBITRIL/VALSARTAN) PO SCH (20:23)
[2019-05-10] MEDS: TAMSULOSIN 0.4 MG CAP PO SCH (20:24)
[2019-05-10] MEDS: ATORVASTATIN 20 MG TAB PO SCH (20:24)
[2019-05-10] MEDS: **NOTE PATIENT COMMENT** MISC XX SCH (20:42)
[2019-05-10] MEDS ORDERED: zolPIDEM TARTRATE 5 MG TAB PO PRN (22:15)
[2019-05-11 02:00] VITALS: BP 139/85
[2019-05-11] MEDS: NORCO, ANEXSIA 5/325MG TABLET (HYDROcodone/ACETAMINOPHEN) PO PRN ×2 (04:49→11:30)
[2019-05-11 05:30] VITALS: BP_SYST 120; BP_SYST 122; BP_DIAS 74; BP_DIAS 76; BP_DIAS 84
[2019-05-11 06:00] VITALS: BP 138/87
[2019-05-11 06:26] LABS: HEMATOCRIT 30.8 % (42.0-52.0); HEMOGLOBIN 9.4 g/dl (13.5-17.5); MEAN CORPUSCULAR HEMOGLOBIN 28.6 pg (27.0-33.0); MEAN CORPUSCULAR HGB CONC 30.5 g/dl (32.0-36.5); MEAN CORPUSCULAR VOLUME 93.6 fl (80.0-96.0); PLATELET COUNT, AUTOMATED 327 10^3/uL (150-450); RED BLOOD COUNT 3.29 10^6/uL (4.30-6.10); WHITE BLOOD COUNT 7.1 10^3/uL (4.0-10.0)
[2019-05-11 06:55] LABS: BLOOD UREA NITROGEN 45 MG/DL (7-18); CALCIUM LEVEL 8.6 MG/DL (8.8-10.2); CARBON DIOXIDE LEVEL 30 MEQ/L (21-32); CHLORIDE LEVEL 104 MEQ/L (98-107); CREATININE FOR GFR 1.18 MG/DL (0.70-1.30); GLOMERULAR FILTRATION RATE > 60.0 (>42); GLUCOSE, FASTING 101 MG/DL (70-100); NT-PRO BNP 8616 PG/ML (<125); POTASSIUM SERUM 3.5 MEQ/L (3.5-5.1); SODIUM LEVEL 140 MEQ/L (136-145)
[2019-05-11] MEDS: HumaLOG INSULIN (NovoLOG) PER UNIT SC SCH ×2 (07:30→12:00)
[2019-05-11] MEDS: MAGNESIUM CHLORIDE 64 MG TABCR (SLO MAG) PO SCH (08:55)
[2019-05-11] MEDS: TORSEMIDE 20 MG TAB PO SCH (08:58)
[2019-05-11 08:59] VITALS: BP 128/76
[2019-05-11] MEDS: FEBUXOSTAT 40 MG TABLET (ULORIC) PO SCH (08:59)
[2019-05-11] MEDS: FERROUS GLUCONATE 324 MG TAB PO SCH (08:59)
[2019-05-11] MEDS: HYDROCORTISONE 10 MG TAB PO SCH (08:59)
[2019-05-11] MEDS: METOPROLOL SUCC *XL* 25MG TAB (TopROL *XL*) PO SCH (08:59)
[2019-05-11] MEDS: OMEPRAZOLE 20 MG CAP PO SCH (08:59)
[2019-05-11] MEDS: FLUoxetine 20 MG CAP PO SCH (09:00)
[2019-05-11] MEDS: APIXABAN 5 MG TAB (ELIQUIS) PO SCH (09:00)
[2019-05-11] MEDS: FAMOTIDINE 20 MG TAB PO SCH (09:00)
[2019-05-11] MEDS: MULTIVITAMINS/MINERALS THERAP 1 TAB PO SCH (09:00)
[2019-05-11] MEDS: GABAPENTIN 300 MG CAP PO SCH (09:00)
[2019-05-11] MEDS: LACTOBACILLUS ACIDOPHILUS CAP (BACID) PO SCH (09:00)
[2019-05-11] MEDS: LIDOCAINE 5% (LIDODERM) PATCH TD SCH ×2 (09:00→09:01)
[2019-05-11] MEDS: ASPIRIN 81 MG ENTERIC TAB PO SCH (09:00)
[2019-05-11] MEDS: CYANOCOBALAMIN 500 MCG TAB PO SCH (09:00)
[2019-05-11] MEDS: oxyBUTYnin *DITROPAN XL* 5 MG TABCR PO SCH (09:01)
[2019-05-11] MEDS ORDERED: FAMO20TA PO (10:30)
[2019-05-11] MEDS ORDERED: TORS20TA2 PO (10:30)
--- NOTE | 2019-05-11 20:19 | DS.PDOC ---
Discharge Summary General Date of Admission May 06, 2019 at 19:11 Date of Discharge 05/11/19 Discharge Summary PROCEDURES PERFORMED DURING STAY: None. ADMITTING DIAGNOSES: 1. . Acute on chronic CHF exacerbation. DISCHARGE DIAGNOSES: 1. . Acute on chronic CHF exacerbation. COMPLICATIONS/CHIEF COMPLAINT: Acute On Chronic Renal Failure,Chf. HISTORY OF PRESENT ILLNESS & HOSPITAL COURSE: Pt is a 73 yo M with hx of CHF (Echo 10/2018) with mod pHTN, AFib on anticoag, just initial lung disease with chronic hypoxic respiratory failure initially presented with SOB and admitted with CHF exacerbation due to non-compliance. Influ screen neg, respiratory panel negative, blood cultures 05/06 negative. IV diuretics are transitioned to by mouth. At discharge, vital signs stable, patient was saturating well in room- air, he received grossly within normal limits, A&P grossly intact, BNP has improved from previous. Pt tolerated increased torsemide dosing of 40 twice a day. Since GERD medication was also changed from ranitidine to famotidine due to ranitidine recall. He is to follow-up with cardiology and primary care physician in one to 2 weeks. No other changes in medication, questions were answered.. DISCHARGE MEDICATIONS: Please see below. ALLERGIES: Please see below. PHYSICAL EXAMINATION ON DISCHARGE: VITAL SIGNS: Please see below. GENERAL: No distress HEENT: Normocephalic, atraumatic, moist mucous membranes NECK: Supple CARDIOVASCULAR EXAMINATION: S1, S2 RESPIRATORY EXAMINATION: CTAB ABDOMINAL EXAMINATION: Soft, nontender, nondistended, positive bowel sounds EXTREMITIES: no edema SKIN: No rash NEUROLOGICAL EXAMINATION: Alert and oriented 3, no focal deficits PSYCHIATRIC EXAMINATION: Calm and cooperative, appropriate affect LABORATORY DATA: Please see below. IMAGING: Chest x-ray consistent with vascular ingestion, CT abdomen and pelvis was performed to evaluate for abdominal pain which has resolved, no acute findings. PROGNOSIS: good ACTIVITY: As tolerated. DIET: heart healthy DISCHARGE PLAN: see above DISPOSITION: 01 Home, Self-Care. DISCHARGE INSTRUCTIONS: 1. see above ITEMS TO FOLLOWUP ON ON OUTPATIENT: 1. see above DISCHARGE CONDITION: Stable. TIME SPENT ON DISCHARGE: 35 minutes. Vital Signs/I&Os Vital Signs Date Time Temp Pulse Resp B/P (MAP) Pulse Ox O2 Delivery O2 Flow Rate FiO2 05/11/19 12:00 16 05/11/19 08:59 68 128/76 05/11/19 06:00 97.9 95 Room Air 11/19/19 23:50 3.0 I&O- Last 24 Hours up to 6 AM 05/11/19 06:00 Intake Total 780 ml Output Total 400 ml Balance 380 ml Laboratory Data Labs 24H Laboratory Tests 2 05/10/19 20:15: Bedside Glucose (Misc Panel) 83 05/11/19 05:35: Nucleated Red Blood Cells % (auto) 0.0, Anion Gap 6L, Glomerular Filtration Rate > 60.0, Calcium Level 8.6L, NI-Aex-W-Type Natriuretic Peptide 8616H 05/11/19 11:52: Bedside Glucose (Misc Panel) 114H CBC/BMP Laboratory Tests 05/11/19 05:35 FSBS Laboratory Tests Test 05/10/19 20:15 05/11/19 11:52 Range/Units Bedside Glucose (Misc Panel) 83 114 83-110 MG/DL Microbiology Microbiology 05/06/19 Respiratory Virus Panel (PCR) (DANNY) - Final, Complete 05/06/19 Blood Culture - Final, Complete NO GROWTH AFTER 5 DAYS Discharge Medications Scheduled Acarbose (Acarbose) 25 Mg Tab, 25 MG PO ACB, (Reported) Apixaban (Eliquis) 5 Mg Tablet, 5 MG PO BID, (Reported) Aspirin (Aspirin EC) 81 Mg Tablet.dr, 81 MG PO DAILY, (Reported) Atorvastatin Calcium (Atorvastatin Calcium) 40 Mg Tablet, 20 MG PO QHS, (Reported) Calcium Carbonate/Vitamin D3 (Calcium 600-Vit D3 400 Tablet) 1 Each Tablet, 1 TAB PO BID, (Reported) Cyanocobalamin (Vitamin B-12) (Vitamin B-12) 1,000 Mcg Tab, 1,000 MCG PO DAILY, (Reported) Epoetin [place] (Procrit) 20,000 Unit/Ml Inj, 20,000 UNIT SC Q2WK, (Reported) Ergocalciferol (Vitamin D2) (Vitamin D2) 50,000 Unit Cap, 50,000 UNIT PO QWEEK, (Reported) WEDNESDAYS Famotidine (Famotidine) 20 Mg Tablet, 20 MG PO BID Febuxostat (Uloric) 80 Mg Tab, 80 MG PO DAILY, (Reported) Ferrous Gluconate (Ferrous Gluconate) 324 Mg Tab, 324 MG PO BIDWM, (Reported) Fluoxetine Hcl (Fluoxetine HCl) 20 Mg Cap, 80 MG PO DAILY, (Reported) TAKES AT 1200 Gabapentin (Gabapentin) 600 Mg Tablet, 600 MG PO TID, (Reported) Hydrocortisone (Hydrocortisone) 10 Mg Tablet, 30 MG PO QAM, (Reported) Hydrocortisone (Hydrocortisone) 10 Mg Tablet, 20 MG PO QPM, (Reported) L.acidoph/L.bulg/B.bif/S.therm (Bacid Caplet) 1 Tab Tab, 1 TAB PO DAILY, (Reported) Magnesium Chloride (Slow-Mag) 1 Tab Tab, 1 TAB PO DAILY, (Reported) TAKES AT 1200 Metoprolol Succinate (Metoprolol Succinate) 50 Mg Tab.er.24h, 25 MG PO DAILY, (Reported) Mirtazapine (Remeron) 30 Mg Tab, 30 MG PO QHS, (Reported) Multivitamins (Thera M Plus Tablet) 1 Tab Tab, 1 TAB PO DAILY, (Reported) Omeprazole (Omeprazole) 20 Mg Tablet.dr, 40 MG PO BID, (Reported) Oxybutynin Chloride (Oxybutynin Chloride ER) 15 Mg Tab, 15 MG PO DAILY, (Reported) Sacubitril/Valsartan (Entresto 24 mg-26 mg Tablet) 1 Each Tablet, 1 TAB PO QHS, (Reported) Spironolactone (Spironolactone) 25 Mg Tablet, 25 MG PO DAILY, (Reported) Tamsulosin HCl (Flomax) 0.4 Mg Cap, 0.4 MG PO QPM, (Reported) Torsemide (Torsemide) 20 Mg Tablet, 40 MG PO BID@0900,1700 Scheduled PRN Albuterol Sulf (Albuterol Sulfate) 2.5 Mg/3 Ml Nebu, 2.5 MG INH Q4H PRN for SHORTNESS OF BREATH, (Reported) Albuterol Sulfate (Proair Hfa) 108 Mcg/Act Aer, 1 PUFF INH Q4H PRN for SHORTNESS OF BREATH, (Reported) Hydrocodone/Acetaminophen (Hydrocodone-Acetamin 10-325 mg) 1 Tab Tab, 2 TAB PO TID PRN for PAIN, (Reported) Nitroglycerin (Nitrostat) 0.4 Mg Subl, 0.4 MG SL NITRO PRN for CHEST PAIN, (Reported) Polyvinyl Alcohol (Artificial Tears) 1.4 % Joyce, 1 DROP OU BID PRN for DRY EYES, (Reported) Zolpidem Tartrate (Zolpidem Tartrate) 5 Mg Tablet, 5 MG PO QHS PRN for SLEEP, (Reported) Allergies Coded Allergies: allopurinol (Verified Adverse Reaction, Mild, itching, 12/06/18) ISAEL EDWARD MD May 11, 2019 20:19
== END 2019-05-11 13:30 | disposition home or self-care (01) | DRG 291 ==
LOC: EDBD 16:12 → M ED 16:12 → M ED INP 19:11 → M MSPAV 21:55 → M ICU 05-07 23:59 → M MSPAV 05-08 17:17
PROVIDERS: ADMIT Internal Medicine; ATTEND Family Medicine
DX: I13.0 Hypertensive heart and chronic kidney disease with heart failure and stage 1 through stage 4 chronic kidney disease, or unspecified chronic kidney disease (principal); I50.23 Acute on chronic systolic (congestive) heart failure; J96.11 Chronic respiratory failure with hypoxia; I48.20 Chronic atrial fibrillation, unspecified; N18.3 Chronic kidney disease, stage 3 (moderate); Z79.01 Long term (current) use of anticoagulants; Z91.19 Patient's noncompliance with other medical treatment and regimen; Z79.82 Long term (current) use of aspirin; Z79.899 Other long term (current) drug therapy; Z88.8 Allergy status to other drugs, medicaments and biological substances; I25.10 Atherosclerotic heart disease of native coronary artery without angina pectoris; N40.0 Benign prostatic hyperplasia without lower urinary tract symptoms; K21.9 Gastro-esophageal reflux disease without esophagitis; F43.10 Post-traumatic stress disorder, unspecified; K22.70 Barrett's esophagus without dysplasia; M32.14 Glomerular disease in systemic lupus erythematosus; Z87.891 Personal history of nicotine dependence; Z99.0 Dependence on aspirator; Z99.81 Dependence on supplemental oxygen; E11.9 Type 2 diabetes mellitus without complications; D63.1 Anemia in chronic kidney disease; D50.9 Iron deficiency anemia, unspecified; G47.30 Sleep apnea, unspecified; M54.5 Low back pain; M10.9 Gout, unspecified; F39 Unspecified mood [affective] disorder; I95.9 Hypotension, unspecified

== ENCOUNTER 2019-06-25 12:20 | Inpatient (IN) | payer MEDICARE, OTHER ==
[2019-06-25] VITALS (52 sets, daily range): BP systolic 65–146; BP diastolic 40–77
[~2019-06-25] VITALS: Ht 172.7 cm; Wt 104.2 kg
[~2019-06-25 12:20] MED LIST changes: +FAMO20TA PO; +FLUO20CA20 PO; -FLUO20CA8 PO; +OMEP-172 PO; -OMEP20CA4 PO; -OXYB15TA PO; +OXYB1TAB13 PO
[2019-06-25] MEDS ORDERED: NS 1,000 ML IV ONE ×3 (12:45→15:15)
[2019-06-25] MEDS ORDERED: PANTOPRAZOLE 40MG INJ (PROTONIX) (C9113) IV ONE (13:00)
[2019-06-25 13:02] LABS: BASO % 0.3 % (0.0-1.0); EOS # 0.1 10^3/uL (0.0-0.5); HEMATOCRIT 30.9 % (42.0-52.0); HEMOGLOBIN 9.5 g/dl (13.5-17.5); LYMPH # 0.4 10^3/uL (1.5-5.0); LYMPH % 3.1 % (24.0-44.0); MEAN CORPUSCULAR HEMOGLOBIN 28.7 pg (27.0-33.0); MEAN CORPUSCULAR HGB CONC 30.7 g/dl (32.0-36.5); MEAN CORPUSCULAR VOLUME 93.4 fl (80.0-96.0); MONO # 1.2 10^3/uL (0.0-0.8); MONO % 10.1 % (0.0-5.0); NEUTROPHILS # 9.8 10^3/uL (1.5-8.5); NEUTROPHILS % 85.2 % (36.0-66.0); PLATELET COUNT, AUTOMATED 285 10^3/uL (150-450); RED BLOOD COUNT 3.31 10^6/uL (4.30-6.10); WHITE BLOOD COUNT 11.5 10^3/uL (4.0-10.0)
[2019-06-25 13:13] LABS: INR 3.9; PROTHROMBIN TIME 38.3 SECONDS (11.8-14.0)
[2019-06-25 13:14] LABS: PARTIAL THROMBOPLASTIN TIME 56.2 SECONDS (25.0-38.4)
[2019-06-25 13:36] LABS: ALBUMIN 2.7 GM/DL (3.2-5.2); ALT/SGPT 40 U/L (12-78); BILIRUBIN,DIRECT 0.2 MG/DL (0.0-0.2); BILIRUBIN,TOTAL 0.5 MG/DL (0.2-1.0); BLOOD UREA NITROGEN 93 MG/DL (7-18); CARBON DIOXIDE LEVEL 23 MEQ/L (21-32); CHLORIDE LEVEL 93 MEQ/L (98-107); CK-MB VALUE MASS 2.3 NG/ML (<3.6); CPK CREATINE PHOSPHOKINASE 50 U/L (39-308); CREATININE FOR GFR 5.22 MG/DL (0.70-1.30); FREE T4 1.29 NG/DL (0.76-1.46); GLOMERULAR FILTRATION RATE 11.6 (>42); GLUCOSE, FASTING 119 MG/DL (70-100); LIPASE 44 U/L (73-393); POTASSIUM SERUM 5.1 MEQ/L (3.5-5.1); SODIUM LEVEL 128 MEQ/L (136-145); TOTAL PROTEIN 6.1 GM/DL (6.4-8.2); TROPONIN I < 0.02 NG/ML (< 0.10)
[2019-06-25] MEDS ORDERED: HYDR-4513 PO (14:16)
[2019-06-25] MEDS ORDERED: GENT1SOL16 OU (14:16)
[2019-06-25] MEDS ORDERED: FAMO1TAB11 PO (14:16)
[2019-06-25] MEDS ORDERED: MICO2CRE45 TOP (14:16)
[2019-06-25] MEDS ORDERED: VITA50005 PO (14:16)
[2019-06-25] MEDS ORDERED: VITA100066 PO (14:16)
[2019-06-25] MEDS ORDERED: AMMO12CR7 TOP (14:16)
[2019-06-25] MEDS ORDERED: NYST10CR TOP (14:16)
[2019-06-25] MEDS ORDERED: TORS20TA2 PO (14:16)
--- NOTE | 2019-06-25 14:37 | REP ---
CT BRAIN WITHOUT CONTRAST: HISTORY: Trauma. Comparison brain CT study is from May 09, 2018. FINDINGS: Digital preliminary special event assistant radiograph shows that the patient is edentulous. He is status post cervical spine fusion plating. The bony calvarium is intact. There is heavy vascular calcification in the distal vertebral and distal carotid arteries as before. Visualized paranasal sinuses are clear. No intraorbital abnormality is appreciated. On soft tissue window settings, there is mild diffuse atrophy. There is no evidence of intracranial hemorrhage. No acute infarction is seen. No extra-axial fluid collection, mass, or midline shift is seen. IMPRESSION: Vascular calcification and mild diffuse atrophy. No acute intracranial abnormality. No skull fracture or intracranial injury seen. Electronically Signed by Mustapha Brown MD 06/25/2019 04:13 P
--- NOTE | 2019-06-25 14:39 | REP ---
CT STUDY OF THE CERVICAL SPINE WITHOUT CONTRAST: HISTORY: Trauma. No comparison study. TECHNIQUE: Helical scanning is acquired and overlapping 2 mm high resolution axial images were generated and reviewed at bone and soft tissue window settings. Coronal and sagittal multiplanar re-formations images are generated. CT FINDINGS: There is no evidence of cervical spine element fracture. No skull base fracture is seen. Cervical vertebral body heights are preserved. The patient is status post ventral discectomy and fusion plating across the C3-4 level. The C3-4 disc is fused. There is a chronic 5 mm anterolisthesis of C3 on C4 at the fused level. This is not felt to be acutely traumatic. There is degenerative disc disease at C4-C5 with anterior and posterior spurring and some sclerosis. Discogenic spurring is seen at C5-6 anteriorly as well. There is osteoarthritic facet disease at C2-3 on the left and right and at C4-5 on the right. The C3-4 facet joints are also ankylosed. There is no evidence of intraspinal or kenny spinal hematoma. There is a ground-glass opacity pattern in the upper lobes of the lungs bilaterally. IMPRESSION: No acute traumatic abnormality. Status post C3-4 fusion with 5 mm C3-4 spondylolisthesis at the fused level. Degenerative spondylosis changes. Electronically Signed by Mustapha Brown MD 06/25/2019 04:13 P
--- NOTE | 2019-06-25 14:40 | REP ---
CT LUMBAR SPINE WITHOUT CONTRAST: HISTORY: Trauma. FINDINGS: Lumbar vertebral body heights are preserved. No fracture or collapse is seen. There are advanced degenerative spondylosis changes with degenerative disc disease most pronounced at L2-3 and L3-4 where there are vacuum phenomenon in the collapsed discs and reactive sclerosis. There is moderate central canal stenosis visible at L1-2, L2-3, and L3-4 due to developmentally short pedicles, diffuse disc bulging and posterior osteophytic ridging, and some facet hypertrophy at these levels. There is right-sided neural foraminal narrowing at the L3-4 due to discogenic spurring and facet hypertrophy. No fracture or collapse is seen. IMPRESSION: No traumatic abnormality noted. Advanced degenerative spondylosis and multilevel combined developmental and degenerative central canal stenosis. There is a dextroconvex scoliotic curve as well. Electronically Signed by Mustapha Brown MD 06/25/2019 04:14 P
--- NOTE | 2019-06-25 14:46 | REP ---
CT CHEST WITHOUT CONTRAST: HISTORY: Trauma. Comparison is made with chest x-ray from May 08, 2019. Comparison CT study of the chest November 10, 2018. CT FINDINGS: There are advanced COPD changes with subpleural fibrosis in the bases bilaterally and in the upper lobes bilaterally unchanged from the November 10, 2018 prior study. There is no evidence of new infiltrate or contusion. No pneumothorax or hydrothorax is seen. Mediastinum is not widened. Vascular calcification is seen in the thoracic aorta. There is a small amount of pericardial thickening which is slightly more pronounced than on the November 10, 2018 study. Vascular calcification is noted. No mediastinal mass or adenopathy is observed. No rib or other skeletal fracture is appreciated. No sternal fracture is seen. Thoracic vertebral body heights are preserved. IMPRESSION: Evidence of COPD pulmonary fibrosis. This is unchanged. There is slight pericardial thickening. This is a little more prominent than on the November 10, 2018 study. No other acute abnormality. Electronically Signed by Mustapha Brown MD 06/25/2019 04:14 P
--- NOTE | 2019-06-25 14:48 | REP ---
CT ABDOMEN AND PELVIS WITHOUT IV OR ORAL CONTRAST: HISTORY: Trauma. FINDINGS: Preliminary digital anesthesiologist and critical care radiograph demonstrates gaseous distension of large and small bowel loops in the abdomen. The patient's hands are in the field of view inducing some spray artifact. There is no evidence of free intraperitoneal air or hemoperitoneum. The liver and the spleen are normal in size and appear intact. No adrenal lesion is seen. There is an accessory splenule in the left upper quadrant adjacent to the tail of the pancreas. No pancreatic abnormalities observed. The gallbladder is unremarkable. No adrenal lesion is seen. There are a few punctate calcifications within the pancreas. No other pancreatic abnormality. There is no evidence of renal hematoma, mass, or hydronephrosis. There is some vascular calcification. Scoliosis is seen in the lumbar spine. No retroperitoneal mass or adenopathy is observed. There is pancolonic diverticulosis. Urinary bladder is unremarkable. Prostate and seminal vesicles appear intact. Bone window settings show degenerative spondylosis changes and scoliosis. No fracture or collapse is seen. There are advanced degenerative disc changes at L2-3. IMPRESSION: Pancolonic diverticulosis. Mild ileus pattern in the bowel gas. No traumatic abnormality noted. Electronically Signed by Mustapha Brown MD 06/25/2019 04:14 P
--- NOTE | 2019-06-25 14:48 | REP ---
CT THORACIC SPINE WITHOUT CONTRAST: HISTORY: Trauma. FINDINGS: Thoracic vertebral body heights are preserved. No fracture or collapse is seen. There is diffuse degenerative disc disease. A minimal curvature is present levoconvex in the mid and lower thoracic spine. Pedicles and posterior elements are intact. No paravertebral hematoma is appreciated. IMPRESSION: Degenerative spondylosis changes. No traumatic abnormality noted. Electronically Signed by Mustapha Brown MD 06/25/2019 04:14 P
[2019-06-25] MEDS ORDERED: HYDROCORTISONE 100 MG/2 ML VIAL (J1720 PER 1) IV ONE (15:00)
[2019-06-25 15:40] LABS: OSMOLALITY SERUM 299 MOSM/KG (280-301)
[2019-06-25 15:47] LABS: ERYTHROCYTE SEDIMENTATION RATE 102 mm/hr (0-20)
[2019-06-25] MEDS ORDERED: GABAPENTIN 300 MG CAP PO SCH (16:00)
[2019-06-25] MEDS ORDERED: NITROGLYCERIN 0.4 MG SUBL TABLET SL PRN (16:00)
[2019-06-25] MEDS ORDERED: IPRATROPIUM 0.5MG/ALBUTEROL 2.5MG INH SOL UD 3ML (DUONEB)(J7620) NEB PRN (16:00)
[2019-06-25 16:22] LABS: BASO # 0.1 10^3/uL (0.0-0.2); BASO % 0.5 % (0.0-1.0); EOS # 0.1 10^3/uL (0.0-0.5); EOS % 0.8 % (0.0-3.0); HEMATOCRIT 27.9 % (42.0-52.0); HEMOGLOBIN 8.6 g/dl (13.5-17.5); LYMPH # 0.6 10^3/uL (1.5-5.0); LYMPH % 5.9 % (24.0-44.0); MEAN CORPUSCULAR HGB CONC 30.8 g/dl (32.0-36.5); MEAN CORPUSCULAR VOLUME 93.9 fl (80.0-96.0); MONO % 9.6 % (0.0-5.0); NEUTROPHILS % 82.8 % (36.0-66.0); PLATELET COUNT, AUTOMATED 242 10^3/uL (150-450); RED BLOOD COUNT 2.97 10^6/uL (4.30-6.10); WHITE BLOOD COUNT 10.9 10^3/uL (4.0-10.0)
[2019-06-25 16:51] LABS: ALBUMIN 2.2 GM/DL (3.2-5.2); ALT/SGPT 40 U/L (12-78); BILIRUBIN,TOTAL 0.4 MG/DL (0.2-1.0); BLOOD UREA NITROGEN 87 MG/DL (7-18); CALCIUM LEVEL 7.9 MG/DL (8.8-10.2); CARBON DIOXIDE LEVEL 22 MEQ/L (21-32); CHLORIDE LEVEL 100 MEQ/L (98-107); CPK CREATINE PHOSPHOKINASE 42 U/L (39-308); CREATININE FOR GFR 4.75 MG/DL (0.70-1.30); GLOMERULAR FILTRATION RATE 12.9 (>42); GLUCOSE, FASTING 97 MG/DL (70-100); MAGNESIUM LEVEL 1.9 MG/DL (1.8-2.4); MB/CK RELATIVE INDEX 4.76 (< OR =4); NT-PRO BNP 11707 PG/ML (<125); SODIUM LEVEL 131 MEQ/L (136-145); TOTAL PROTEIN 5.2 GM/DL (6.4-8.2); TROPONIN I < 0.02 NG/ML (< 0.10)
[2019-06-25] MEDS ORDERED: NS 1,000 ML IV SCH (17:00)
--- NOTE | 2019-06-25 17:12 | HPEPDOC ---
[facility] Medical History & Physical Date of Admission Jun 25, 2019 Date of Service: Jun 25, 2019 Attending Physician: KIKO NJ MD History and Physical CHIEF COMPLAINT: Lightheadedness/Fall HISTORY OF PRESENT ILLNESS: Patient is a 73 year old male with multiple comorbid conditions who presented to the [facility] ER with complaint of dizziness and fall. The patient stated that he had gone to the bathroom and when he got up to get off of the toilet he felt lightheaded and fell. He stated "my legs gave out from under me". He denies hitting his head. He denied any loss of consciousness. The patient was helped into his wheel chair by his grand-daugther. He denied any feelings of his heart racing or palpitations. The patient states that for the last 7-10 days he has felt more and more weak. He does admit to a decrease in oral intake. He denies any nausea or vomiting. He denies any diarrhea. He denies any bloody stools however does admit to dark stools which have become more dark recently. In the ER, the patient was hypotensive with a BP of 54/34, pulse 81, and pulse oximetry of 95% on 4L NC. He had a only mild elevation in WBC. He was hyponatremic with a sodium of 128. He had an elevated creatinine of 5.22 and a GFR of 11.6. He was given 2L IV fluid bolus with appropriate response in blood pressure although remained on the soft side. The patient received imaging of his Lumbar spine, thoracic spine, cervical spine, head and chest all of which were negative for acute disease. He received Ct imaging of the abdomen and pelvis which demonstrated a possible ileus but otherwise negative for any acute findings. Hospitalist service was consulted for further evaluation and management of the patient. He was given a third bolus of IV fluids. He was then given 100mg IV hydrocortisone. The patient was admitted to ICU In the ER the patient PAST MEDICAL HISTORY: 1. Multiple hospitalizations for CHF exacerbation 2. Coronary artery disease with remote history of coronary intervention before 2 . No recent evaluation of coronary anatomy by coronary angiography or nuclear stress testing. 3. Interstitial lung disease, believed to be related to lupus. On 4 L oxygen at home 4. Lupus membranous nephropathy 5. Chronic renal insufficiency, stage III to stage IV. 6. Chronic atrial fibrillation. 7. Type 2 diabetes. 8. Gastroesophageal reflux disease (GERD)/Marcial's esophagus. 9. BPH. 10. Post-traumatic stress disorder (PTSD). PAST SURGICAL HISTORY: 1. knee surgery 2. cataract surgery 3. back surgery 4. renal biopsy SOCIAL HISTORY: Patient is a former smoker however states that he quit 14 years ago and smoked for 40 years. He denies any other tobacco use. He currently lives with his granddaughter. He denies any IV or illicit drug use. FAMILY HISTORY: Patient has a history of hypertension and diabetes ALLERGIES: Please see below. REVIEW OF SYSTEMS: CONSTITUTIONAL: Denies fevers, chills, nightsweats. Denies unintentional weightloss or weight gain HEENT: Denies dysphagia. Denies sore throat. Denies changes in vision CARDIOVASCULAR: Denies chest pain. Denies palpitations or feelings of the heart racing RESPIRATORY: Admits to chronic shortness of breath. Denies cough. Denies wheezing GASTROINTESTINAL: Denies abdominal pain. Denies nausea and vomiting. Admits to dark stool. Denies bloody stool GENITOURINARY: Denies dysuria. Denies increased frequency or urgency SKIN: Denies rashes or lesions MUSCULOSKELETAL: Admits to feeling "weak in the legs" NEUROLOGICAL: Admits to dizziness/lightheadedness. Denies changes in speech PSYCHIATRIC: Admits to history of depression ENDOCRINE: Denies heat intolerance or cold intolerance. Admits to diabetes HEMATOLOGIC/LYMPHATIC: Denies easy bruising or bleeding. Denies history of DVT or PE HOME MEDICATIONS: Please see below. PHYSICAL EXAMINATION: VITAL SIGNS: Temperature 97.6, pulse 65, respiratory rate 20, blood pressure 72/50, pulse oximetry 96% on 4L NC. GENERAL APPEARANCE: Awake, alert, and oriented. Laying in bed in Trendelenburg position. Appears pale. Is not in acute distress HEENT: Atraumatic, normocephalic. Eyes are nonicteric. Trachea is midline. CARDIOVASCULAR: Irregularly irregular rhythm. Regular rate. 2/6 systolic ejection murmur. No clicks or rubs LUNGS: Velcro-like fine crackles in the bases. Good respiratory effort. No accessory muscle use. No wheezing ABDOMEN: Soft, nondistended. Nontender. No rebound tenderness or guarding. Normoactive bowel sounds EXTREMITIES: No edema. 2+ posterior tibial and radial pulses bilaterally NEUROLOGICAL: No focal neurological deficits PSYCHIATRIC: Mood and affect appear appropriate LABORATORY DATA: See below. IMAGING: CT THORACIC SPINE WITHOUT CONTRAST: HISTORY: Trauma. FINDINGS: Thoracic vertebral body heights are preserved. No fracture or collapse is seen. There is diffuse degenerative disc disease. A minimal curvature is present levoconvex in the mid and lower thoracic spine. Pedicles and posterior elements are intact. No paravertebral hematoma is appreciated. IMPRESSION: Degenerative spondylosis changes. No traumatic abnormality noted. Electronically Signed by Mustapha Brown MD 06/25/2019 04:[address] LUMBAR SPINE WITHOUT CONTRAST: HISTORY: Trauma. FINDINGS: Lumbar vertebral body heights are preserved. No fracture or collapse is seen. There are advanced degenerative spondylosis changes with degenerative disc disease most pronounced at L2-3 and L3-4 where there are vacuum phenomenon in the collapsed discs and reactive sclerosis. There is moderate central canal stenosis visible at L1-2, L2-3, and L3-4 due to developmentally short pedicles, diffuse disc bulging and posterior osteophytic ridging, and some facet hypertrophy at these levels. There is right-sided neural foraminal narrowing at the L3-4 due to discogenic spurring and facet hypertrophy. No fracture or collapse is seen. IMPRESSION: No traumatic abnormality noted. Advanced degenerative spondylosis and multilevel combined developmental and degenerative central canal stenosis. There is a dextroconvex scoliotic curve as well. Electronically Signed by Mustapha Brown MD 06/25/2019 04:[address] BRAIN WITHOUT CONTRAST: HISTORY: Trauma. Comparison brain CT study is from May 09, 2018. FINDINGS: Digital preliminary log peeler radiograph shows that the patient is edentulous. He is status post cervical spine fusion plating. The bony calvarium is intact. There is heavy vascular calcification in the distal vertebral and distal carotid arteries as before. Visualized paranasal sinuses are clear. No intraorbital abnormality is appreciated. On soft tissue window settings, there is mild diffuse atrophy. There is no evidence of intracranial hemorrhage. No acute infarction is seen. No extra-axial fluid collection, mass, or midline shift is seen. IMPRESSION: Vascular calcification and mild diffuse atrophy. No acute intracranial abnormality. No skull fracture or intracranial injury seen. Electronically Signed by Mustapha Brown MD 06/25/2019 04:[address] CHEST WITHOUT CONTRAST: HISTORY: Trauma. Comparison is made with chest x-ray from May 08, 2019. Comparison CT study of the chest November 10, 2018. CT FINDINGS: There are advanced COPD changes with subpleural fibrosis in the bases bilaterally and in the upper lobes bilaterally unchanged from the November 10, 2018 prior study. There is no evidence of new infiltrate or contusion. No pneumothorax or hydrothorax is seen. Mediastinum is not widened. Vascular calcification is seen in the thoracic aorta. There is a small amount of pericardial thickening which is slightly more pronounced than on the November 10, 2018 study. Vascular calcification is noted. No mediastinal mass or adenopathy is observed. No rib or other skeletal fracture is appreciated. No sternal fracture is seen. Thoracic vertebral body heights are preserved. IMPRESSION: Evidence of COPD pulmonary fibrosis. This is unchanged. There is slight pericardial thickening. This is a little more prominent than on the November 10, 2018 study. No other acute abnormality. Electronically Signed by Mustapha Brown MD 06/25/2019 04:[address] STUDY OF THE CERVICAL SPINE WITHOUT CONTRAST: HISTORY: Trauma. No comparison study. TECHNIQUE: Helical scanning is acquired and overlapping 2 mm high resolution axial images were generated and reviewed at bone and soft tissue window settings. Coronal and sagittal multiplanar re-formations images are generated. CT FINDINGS: There is no evidence of cervical spine element fracture. No skull base fracture is seen. Cervical vertebral body heights are preserved. The patient is status post ventral discectomy and fusion plating across the C3-4 level. The C3-4 disc is fused. There is a chronic 5 mm anterolisthesis of C3 on C4 at the fused level. This is not felt to be acutely traumatic. There is degenerative disc disease at C4-C5 with anterior and posterior spurring and some sclerosis. Discogenic spurring is seen at C5-6 anteriorly as well. There is osteoarthritic facet disease at C2-3 on the left and right and at C4-5 on the right. The C3-4 facet joints are also ankylosed. There is no evidence of intraspinal or kenny spinal hematoma. There is a ground-glass opacity pattern in the upper lobes of the lungs bilaterally. IMPRESSION: No acute traumatic abnormality. Status post C3-4 fusion with 5 mm C3-4 spondylolisthesis at the fused level. Degenerative spondylosis changes. Electronically Signed by Mustapha Brown MD 06/25/2019 04:[address] ABDOMEN AND PELVIS WITHOUT IV OR ORAL CONTRAST: HISTORY: Trauma. FINDINGS: Preliminary digital log peeler radiograph demonstrates gaseous distension of large and small bowel loops in the abdomen. The patient's hands are in the field of view inducing some spray artifact. There is no evidence of free intraperitoneal air or hemoperitoneum. The liver and the spleen are normal in size and appear intact. No adrenal lesion is seen. There is an accessory splenule in the left upper quadrant adjacent to the tail of the pancreas. No pancreatic abnormalities observed. The gallbladder is unremarkable. No adrenal lesion is seen. There are a few punctate calcifications within the pancreas. No other pancreatic abnormality. There is no evidence of renal hematoma, mass, or hydronephrosis. There is some vascular calcification. Scoliosis is seen in the lumbar spine. No retroperitoneal mass or adenopathy is observed. There is pancolonic diverticulosis. Urinary bladder is unremarkable. Prostate and seminal vesicles appear intact. Bone window settings show degenerative spondylosis changes and scoliosis. No fracture or collapse is seen. There are advanced degenerative disc changes at L2-3. IMPRESSION: Pancolonic diverticulosis. Mild ileus pattern in the bowel gas. No traumatic abnormality noted. Electronically Signed by Mustapha Brown MD 06/25/2019 04:14 P MICROBIOLOGY: Please see below. ASSESSMENT: Patient is a 73 year old male with multiple comorbid conditions who presented to the [facility] ER with complaint of weakness and fall and found to be hypotensive secondary to a possible GI bleed . PLAN: 1. Hypovolemic Shock likely 2/2 acute GI bleed vs adrenal insufficiency -Patient presented with hypotension. He clinically appears dry. He has received 3L Normal Saline bolus with appropriate response in blood pressure. The patient is on hydrocortisone as an outpatient and was given hydrocortisone 100mg IV stress dose. -He is hyponatremic, hypotensive, and has a normal lactic acid. His hypotension is likely due in part to adrenal insufficiency. Will continue Hydrocortisone 50mg IV Q8H -Patient had positive stool occult blood. Will transfuse 2 units PRBC. -Trend H&H. -Patient will be given Protonix 40mg IV BID -He is on eliquis and aspirin. Will hold -Will place on clear liquids diet. -Carafate BID -Admits to ICU for critical monitoring 2. Acute on Chronic Kidney Disease likely due to hypovolemia -Patients baseline Cr is 1.4. Today is Cr is 5.4. It has improved to 4.75 today after IV fluid -Patient has received 3L NS bolus. Will continue with IV hydration overnight. His acute kidney injury is likely secondary to his hypovolemia -Will trend Cr. -Nephrology has been consulted and case was discussed. Recommendations are appreciated -Urinalysis and urine electrolytes are currently pending 3. Congestive Heart Failure -Patient has a history of congestive heart failure. He has multiple admissions for decompensated CHF. Today he is hypovolemic. -Will hold his metoprolol, entresto, torsemide, and spironolactone given his hypotension -Will obtain Echocardiogram 4. Hyponatremia -Likely secondary to adrenal insufficiency. Patient is receiving IV fluids. Hydrocortisone IV 50 mg q6h 5. Atrial Fibrillation -Patient is currently rate controlled. His metoprolol is currently held given his hypotension -Patient is on Eliquis at home. This is held in light of his possible GI bleed 6. Interstitial Lung Disease with chronic oxygen dependent respiratory failure -At baseline patient requires 4L NC. He is currently at his baseline -Edwin PRN -Oxygen therapy orders for O2 sats 88-92% 7. Diabetes Mellitus -Patients A1C was 6.1. Will continue to monitor. -ACHS with sliding scale coverage 8. Chronic Back pain -Patient is on Whitmer at home. Will hold opioid medications for tonight given his hypotension 9. History of CAD -Patient is on aspirin and atorvastatin. -Will hold aspirin 10. GERD -Patient will be continued on Protonix 40mg BID for possible GI bleed 11. History of Gout -Currently holding Febuxostat 12. Sleep Disorder -Patient is on Ambien at home. This is being held due to patients hypotension 13. DVT prophylaxis -TEDs and Sequentials -Pharmacological DVT prophylaxis contraindicated due to patients likely GI bleed Vital Signs Vital Signs Date Time Temp Pulse Resp B/P (MAP) Pulse Ox O2 Delivery O2 Flow Rate FiO2 06/25/19 15:26 95 Nasal Cannula 4.0 06/25/19 15:15 65 18 77/58 (64) 06/25/19 12:27 97.6 Laboratory Data Labs 24H Laboratory Tests 2 06/25/19 12:47: Immature Granulocyte % (Auto) 0.3, Neutrophils (%) (Auto) 85.2H, Lymphocytes (%) (Auto) 3.1L, Monocytes (%) (Auto) 10.1H, Eosinophils (%) (Auto) 1.0, Basophils (%) (Auto) 0.3, Neutrophils # (Auto) 9.8H, Lymphocytes # (Auto) 0.4L, Monocytes # (Auto) 1.2H, Eosinophils # (Auto) 0.1, Basophils # (Auto) 0.0, Nucleated Red Blood Cells % (auto) 0.0, Prothrombin Time 38.3H, Prothromb Time International Ratio 3.90, Activated Partial Thromboplast Time 56.2H, Anion Gap 12, Glomerular Filtration Rate 11.6L, Osmolality 299, Lactic Acid Level 1.7, Calcium Level 9.0, Total Bilirubin 0.5, Direct Bilirubin 0.2, Aspartate Amino Transf (AST/SGOT) 34, Alanine Aminotransferase (ALT/SGPT) 40, Alkaline Phosphatase 169H, Total Creatine Kinase 50, Creatine Kinase MB 2.3, Creatine Kinase MB Relative Index 4.60H, Troponin I < 0.02, C-Reactive Protein, Quantitative 11.20H, Total Protein 6.1L, Albumin 2.7L, Albumin/Globulin Ratio 0.79L, Lipase 44L, Thyroid Stimulating Hormone (TSH) 1.530, Free Thyroxine 1.29 06/25/19 12:56: POC Glucose (Misc Panel) 123H, POC Sodium (Misc Panel) 125L, POC Potassium (Misc Panel) 5.0, POC Chloride (Misc Panel) 93L, POC Total CO2 (Misc Panel) 22.0L, POC Blood Urea Nitrogen (Misc Panel 99H, POC Ionized Calcium (Misc Panel) 4.7, POC Creatinine (Misc Panel) 5.7H, POC Hematocrit (Misc Panel) 32.0L CBC/BMP Laboratory Tests 06/25/19 12:47 Microbiology Microbiology 06/25/19 Blood Culture, Received Pending 06/25/19 Blood Culture, Received Pending Home Medications Scheduled Acarbose (Acarbose) 25 Mg Tab, 25 MG PO ACB Apixaban (Eliquis) 5 Mg Tablet, 5 MG PO BID Aspirin (Aspirin EC) 81 Mg Tablet.dr, 81 MG PO DAILY Atorvastatin Calcium (Atorvastatin Calcium) 40 Mg Tablet, 20 MG PO QHS Calcium Carbonate/Vitamin D3 (Calcium 600-Vit D3 400 Tablet) 1 Each Tablet, 1 TAB PO BID Cholecalciferol (Vitamin D3) (Vitamin D3) 1,000 Unit Tablet, 1 TAB PO DAILY Cyanocobalamin (Vitamin B-12) (Vitamin B-12) 1,000 Mcg Tab, 1,000 MCG PO DAILY Epoetin Carson (Procrit) 20,000 Unit/Ml Inj, 20,000 UNIT SC Q2WK Ergocalciferol (Vitamin D2) (Vitamin D2) 50,000 Units Cap, 50,000 UNITS PO QWEEK WEDNESDAYS Famotidine (Famotidine) 20 Mg Tablet, 20 MG PO BID Febuxostat (Uloric) 80 Mg Tab, 80 MG PO DAILY Ferrous Gluconate (Ferrous Gluconate) 324 Mg Tab, 324 MG PO BIDWM Fluoxetine Hcl (Fluoxetine HCl) 20 Mg Cap, 80 MG PO DAILY TAKES AT 1200 Gabapentin (Gabapentin) 600 Mg Tablet, 600 MG PO TID Hydrocortisone (Hydrocortisone) 10 Mg Tablet, 20 MG PO QAM Hydrocortisone (Hydrocortisone) 10 Mg Tablet, 10 MG PO QHS L.acidoph/L.bulg/B.bif/S.therm (Bacid Caplet) 1 Tab Tab, 1 TAB PO DAILY Magnesium Chloride (Slow-Mag) 1 Tab Tab, 1 TAB PO DAILY TAKES AT 1200 Metoprolol Succinate (Metoprolol Succinate) 50 Mg Tab.er.24h, 25 MG PO DAILY Multivitamins (Thera M Plus Tablet) 1 Tab Tab, 1 TAB PO DAILY Omeprazole (Omeprazole) 20 Mg Tablet.dr, 40 MG PO BID Oxybutynin Chloride (Oxybutynin Chloride ER) 15 Mg Tab, 15 MG PO DAILY Sacubitril/Valsartan (Entresto 24 mg-26 mg Tablet) 1 Each Tablet, 1 TAB PO QHS Spironolactone (Spironolactone) 25 Mg Tablet, 25 MG PO DAILY Tamsulosin HCl (Flomax) 0.4 Mg Cap, 0.4 MG PO QPM Torsemide (Torsemide) 20 Mg Tablet, 40 MG PO BID Scheduled PRN Albuterol Sulf (Albuterol Sulfate) 2.5 Mg/3 Ml Nebu, 2.5 MG INH Q4H PRN for SHORTNESS OF BREATH Albuterol Sulfate (Proair Hfa) 108 Mcg/Act Aer, 1 PUFF INH Q4H PRN for SHORTNESS OF BREATH Ammonium Lactate (Ammonium Lactate) 12% Cream..g., 1 DOSE TOP DAILY PRN for DRY SKIN Dextran/Hypromellose (Genteal Tears 0.1%-0.3% Drop) 15 Ml Drops, 1 DROP OU QID PRN for DRY EYES Hydrocodone/Acetaminophen (Hydrocodone-Acetamin 10-325 mg) 1 Tab Tab, 2 TAB PO TID PRN for PAIN Miconazole Nitrate (Miconazole Nitrate) 30 Gm Cream..g., 1 APLCT TOP BID PRN for fungal infection Nitroglycerin (Nitrostat) 0.4 Mg Subl, 0.4 MG SL NITRO PRN for CHEST PAIN Nystatin (Nystatin) 15 Gm Cream..g., 1 APLCT TOP BID PRN for fungal infection Zolpidem Tartrate (Zolpidem Tartrate) 5 Mg Tablet, 5 MG PO QHS PRN for SLEEP Allergies Coded Allergies: allopurinol (Verified Allergy, Mild, itching, 06/25/19) A-FIB/CHADSVASC A-FIB History Current/History of A-Fib/PAF?: Yes Current PO Anticoag Therapy: No Age/Risk Factor Scoring CHADSVASC: CHADSVASC Response (Comments) Value Age Risk Factor Age 65-74 years old 1 Gender Risk Factor Male 0 Hx of CHF Yes 1 Hx of HTN Yes 1 Hx of Stroke/TIA/or VTE No 0 Hx of Diabetes Yes 1 Hx of Vascular Disease Yes 1 Total 5 Treatment Treatment ordered: Holding Other Other anticoagulant ordered: None . ROBBIE HERNANDEZ DO Jun 25, 2019 15:58
[2019-06-25] MEDS ORDERED: GLUCAGON FOR INJ 1 MG VIAL (J1610) SC PRN (17:15)
[2019-06-25] MEDS ORDERED: DEXTROSE 50% 50 ML SYRINGE IV PRN (17:15)
[2019-06-25] MEDS ORDERED: GLUCOSE 4 GM CHEW TABLET PO PRN (17:15)
[2019-06-25] MEDS: HumaLOG INSULIN (NovoLOG) PER UNIT SC SCH ×2 (17:30→20:40)
--- NOTE | 2019-06-25 21:11 | PHACANCOPD ---
PHARMACY VANCOMYCIN DOSING Pt Demographics Demographics Patient Age:73 , Weight:107.000 , Gender: male Adjusted Body Weight Date: 06/25/19, Adjusted Body Weight: Kg Events Past 24 Hours Events Past 24 Hours: NO: Dialysis, Diuretic Therapy, Change in CrCl, Fever, Elevation in WBC, Pending Diagnostics, Pending Procedures, Other Vancomycin Vancomycin Target Ranges: 15-20 mcg/ml Vancomycin Load Y/N: Yes Load Dose Date Time Vancomycin Load Dose: 2000mg Date: 06-26 Time: 0000 Vancomycin Dose Date: 06/25/19. Current Vancomycin Dose: Intermittent Dosing?: Yes Labs Labs Item Value Date Time White Blood Count 10.9 10^3/uL H 06/25/19 1610 Glomerular Filtration Rate 12.9 L 06/25/19 1610 Creatinine 4.75 MG/DL H 06/25/19 1610 Blood Urea Nitrogen 87 MG/DL H 06/25/19 1610 Vital Signs Label Value Date Time Patient Temperature 97.5 degrees F 06/25/192025 Temperature Source Temporal 06/25/192025 Micro Microbiology 06/25/19 Blood Culture, Received Pending 06/25/19 Blood Culture, Received Pending Creatinine Clearance Date:06/25/19. Creatinine Clearance: [~13]. Pending Labs Random 06-26 in am Assessment and Plan Maintaining Current Dose?: Yes Reason for dose change: No Dose Change Pharmacist Note Pharmacist Note Date: 06/25/19. Pharmacist note:Will monitor and dose as needed. JEN WINN PHARMACY Jun 25, 2019 21:11
[2019-06-25] MEDS ORDERED: VANCOMYCIN INTERMITTENT/PULSE DOSING BY CLINICAL PHARMACIST PER DOSING PROTOCOL XX SCH (21:15)
[2019-06-25] MEDS: PANTOPRAZOLE 40MG INJ (PROTONIX) (C9113) IV SCH (21:23)
[2019-06-25] MEDS ORDERED: NOREPINEPHRINE 4 MG/4 ML AMP As Ordered ONE (21:42)
[2019-06-25 21:55] LABS: HEMATOCRIT 30.4 % (42.0-52.0); HEMOGLOBIN 9.8 g/dl (13.5-17.5)
[2019-06-25] MEDS: ATORVASTATIN 20 MG TAB PO SCH (22:14)
[2019-06-25] MEDS: SUCRALFATE 1 GM TAB PO SCH (22:14)
[2019-06-25] MEDS: HYDROCORTISONE 100 MG/2 ML VIAL (J1720 PER 1) IV SCH (22:15)
[2019-06-25] MEDS ORDERED: NOREPINEPHRINE BITARTRATE 8 MG in D5W 492 ML IV SCH (22:15)
[2019-06-25] MEDS: LIDOCAINE 5% (LIDODERM) PATCH TD SCH (22:15)
[2019-06-25] MEDS: CEFEPIME HCL 0.5 GM in D5W 50 ML IV SCH (22:21)
[2019-06-25 22:25] LABS: ABG BASE EXCESS -4.9 (-2.0-2.0); ABG HCO3 19.6 MEQ/L (22.0-26.0); ABG O2 SATURATION 99.1 % (95.0-99.0); ABG PARTIAL PRESSURE CO2 34.5 mmHg (35.0-45.0); ABG PARTIAL PRESSURE O2 146.2 mmHg (75.0-100.0); ABG STANDARD HCO3 20.4 MEQ/L (22.0-26.0); ABG TOTAL CO2 20.7 MEQ/L (23.0-31.0); ABG pH (ARTERIAL) 7.373 UNITS (7.350-7.450)
[2019-06-25] MEDS: VANCOMYCIN HCL 1,000 MG, VIAL MATE ADAPTER 1 EACH in D5W 250 ML IV SCH (23:00)
[2019-06-26] VITALS (93 sets, daily range): BP systolic 76–141; BP diastolic 46–98
[2019-06-26] MEDS: VANCOMYCIN HCL 1,000 MG, VIAL MATE ADAPTER 1 EACH in D5W 250 ML IV SCH (02:00)
[2019-06-26 02:04] LABS: OSMOLALITY URINE 227 MOSM/KG (500-800)
[2019-06-26 02:14] LABS: CREATININE,RANDOM URINE 41.3 MG/DL; SODIUM,RANDOM URINE 37 MEQ/L; UREA NITROGEN RANDOM URINE 291 MG/DL
[2019-06-26 04:42] LABS: HEMATOCRIT 31.1 % (42.0-52.0); HEMOGLOBIN 9.8 g/dl (13.5-17.5); MEAN CORPUSCULAR HEMOGLOBIN 28.5 pg (27.0-33.0); MEAN CORPUSCULAR HGB CONC 31.5 g/dl (32.0-36.5); MEAN CORPUSCULAR VOLUME 90.4 fl (80.0-96.0); PLATELET COUNT, AUTOMATED 300 10^3/uL (150-450); RED BLOOD COUNT 3.44 10^6/uL (4.30-6.10); WHITE BLOOD COUNT 11.7 10^3/uL (4.0-10.0)
[2019-06-26 05:15] LABS: CALCIUM LEVEL 8.2 MG/DL (8.8-10.2); CREATININE FOR GFR 3.67 MG/DL (0.70-1.30); GLOMERULAR FILTRATION RATE 17.4 (>42); POTASSIUM SERUM 4.6 MEQ/L (3.5-5.1)
--- NOTE | 2019-06-26 05:54 | ECGEPIP ---
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
[2019-06-26] MEDS: HYDROCORTISONE 100 MG/2 ML VIAL (J1720 PER 1) IV SCH ×3 (06:49→22:21)
--- NOTE | 2019-06-26 07:29 | REP ---
URINARY TRACT SONOGRAPHY: HISTORY: Acute kidney insufficiency combined with chronic renal insufficiency. Comparison study is from June 25, 2019 CT study. SONOGRAPHIC FINDINGS: Scanning at the level urinary bladder shows smooth bladder cobb. Normal appearing prostate. Emptying ureteral jets were not observed. Renal cortical echogenicity pattern is normal bilaterally. Renal contours are smooth. No hydronephrosis is seen on either side. Right kidney measures 13.9 x 6.7 x 5.4 cm. Left renal dimensions are 11.5 x 5.3 x 6.4 cm. IMPRESSION: No evidence of hydronephrosis. No morphologic abnormality. Electronically Signed by Mustapha Brown MD 06/26/2019 09:11 A
[2019-06-26] MEDS: HumaLOG INSULIN (NovoLOG) PER UNIT SC SCH ×4 (08:50→21:00)
--- NOTE | 2019-06-26 08:50 | REP ---
Portable chest x-ray: Single view. History: Line placement. Comparison chest x-ray May 08, 2019. Findings: Moderate cardiac enlargement is observed. Pulmonary vascular congestion is seen with mild diffuse interstitial edema. No pleural effusion. A right internal jugular central venous line has been inserted with its tip in the expected location of the superior vena cava. There is no evidence of pneumothorax. Electronically Signed by Mustapha Brown MD 06/26/2019 08:41 A
[2019-06-26] MEDS: PANTOPRAZOLE 40MG INJ (PROTONIX) (C9113) IV SCH ×2 (08:52→21:00)
[2019-06-26] MEDS: **NOTE PATIENT COMMENT** MISC XX SCH (08:54)
[2019-06-26] MEDS: CEFEPIME HCL 0.5 GM in D5W 50 ML IV SCH ×2 (08:54→22:21)
[2019-06-26] MEDS: SUCRALFATE 1 GM TAB PO SCH ×2 (08:56→21:06)
--- NOTE | 2019-06-26 10:05 | RO ---
DATE OF PROCEDURE: 06/25/2019 INDICATION: Vasopressor administration. PREPROCEDURE DIAGNOSIS: Shock. POSTPROCEDURE DIAGNOSIS: Shock PROCEDURE: Internal jugular central line procedure. ATTENDING PHYSICIAN: Dr. Eunice Love. CONSENT: The procedure was performed emergently and permission was implied due to the emergent nature of the procedure. DESCRIPTION OF PROCEDURE: Of a central line insertion practice form was completed by independent observer. A time-out was performed. My hands were washed immediately prior to the procedure. Full sterile technique was maintained throughout the procedure including surgical cap, mask, protective eye wear, full gown and sterile gloves. The patient was placed in Trendelenburg position. The right neck region was prepped using chlorhexidine scrub and draped in sterile fashion using a fenestrated drape and a sterile probe cover was employed. The right internal jugular vein was identified using ultrasound. Anesthesia was achieved over the vein using 1% lidocaine. Using real-time out- of-plane guidance the introducer needle was inserted into the internal jugular vein under direct ultrasound visualization. Venous blood was drawn. The syringe was removed and a guidewire was advanced into the introducer needle. The introducer needle was removed over the guidewire. A small incision was made at skin surface with scalpel and a dilator was exchanged over the guidewire. After appropriate dilation was obtained the dilator was exchanged over the wire for a triple lumen central venous catheter. The wire was removed and the catheter was sutured in place at 18 cm. A sterile chlorhexidine impregnated dressing was placed over the catheter at the insertion site. The patient tolerated procedure without any hemodynamic compromise. At the time of procedure completion, all ports aspirated and flushed properly. Postprocedure chest x-ray is pending. Estimated blood loss is less than 5 mL. MTDD
--- NOTE | 2019-06-26 10:09 | IPNPDOC ---
Text Note Date of Service The patient was seen on 06/26/19. NOTE Subjective: Patient is a 73-year-old male with a PMHx of CAD s/p PCI (2009), Chronic atrial fibrillation, Chronic Right sided CHF / Pulmonary HTN, Interst itial Lung Disease on 4L NC Oxygen, Lupus membranous nephropathy, CKD3/4, PTSD, BPH, GERD / Marcial's Esophagus who presented to the emergency room after he had experienced dizziness and had fallen while at home. Emergency room, patient received extensive imaging that was unrevealing. Patient was also severely hypotensive with systolic blood pressures of 50 that have improved after receiving IV fluid hydration and hydrocortisone IV. Patient was admitted to the hospitalist service for further evaluation and treatment. Nephrology was called on consultation. Overnight, patient's blood pressure had failed to improve with IV fluid hydration along. Intensivists service was called and patient had a right triple- lumen catheter placed in his internal jugular and intravenous Levophed was started. Patient was suspected of having an infection and broad-spectrum antibiotics with cefepime and vancomycin were started. Fluids were discontinued as a concern for possible fluid overload. Patient received Levophed for less then 12 hours, and is currently off. Patient was seen and examined at the bedside. , Currently patient reports that he feels better. He denies any dizziness, lightheadedness, chest pain, shortness breath, palpitations, cough, abdominal pain. Patient with that he has not had a bowel movement, but will likely have one today. Objective: Vitals (See below) General: Lying in bed, no acute distress, comfortable, AAOx3 HEENT: NC, AT CVS: +S1S2 Lungs: Fair air entry b/l, inspiratory crackles appreciated bilaterally Abdomen: Soft, ND, NT Extremities: No LE edema is appreciated, - Calf tenderness Assessment and plan: Hypotension / Shock - possibly 2/2 hypovolemia - 2/2 diuresis and possible GI bleed, possibly 2/2 adrenal insufficiency, unlikely 2/2 sepsis - Patient presented to the emergency room after he had reported dizziness and had fallen while at home - Review systems negative for any source of infection; however he possibly remains immunocompromised - Currently patient has been taken off of pressor support - CVP measured this morning was 3 - UA is negative for infection - Mild leukocytosis - relatively unchanged, Lactic acid x3 remains negative - Patient was started on Broad spectrum antibiotics (Vancomycin / Cefepime - Day #2); will likely discontinue if cultures are negative - Nephrology on consultation; will defer fluid management to nephrology - Patient will remain in the ICU for next 24 hours Adrenal insufficiency - Patient takes Hydrocortisone 30 / 10 mg as an outpatient - s/p Hydrocortisone 100mg IV in the ER; c/w Hydrocortisone 50 IV q8h Acute blood loss anemia - Baseline Hg of 9-10; however admission Hg of 9.5 likely represent hemoconcentration - s/p 2 units of blood; Hg has remained at baseline - Will continue to follow H&H q6 hours - Will c/w Protonix and Carafate - If Hg continues to trend down will consult Surgery for possible endoscopy / colonoscopy - c/w clear liquid diet only at this time; will advance diet if Hg remains stable CATHY - possibly 2/2 pre-renal etiology; on CKD 2/2 Lupus Membranous Nephropathy - Creatinine on admission of 5.4; baseline creatinine approximately 1.4 - Creatinine has improved after receiving IV fluid hydration and intravascular repletion - Nephrology on consultation; will defer fluid management to nephrology Chronic Right sided Congestive Heart Failure / Pulmonary HTN - Patient has had multiple admissions for congestive heart failure - Currently, patient appears to be hypovolemic/euvolemic - Diuretics have been held - Fluids have been discontinued - Will defer fluid management to nephrology Hyponatremia - likely 2/2 hypotonic hypovolemic etiology, possibly 2/2 hypotonic euvolemic etiology (2/2 adrenal insufficiency) - Approaching normal - s/p IV fluids Atrial Fibrillation - Patient is currently rate controlled - However, will likely require starting metoprolol within the next 24 hours - Patient was on full anticoagulation with Eliquis, which is currently being held (re: GI Bleed) Interstitial Lung Disease with Chronic oxygen dependent respiratory failure - Patient does not report any significant change of vision is of breath. Denies any cough or palpitations - We will continue with nasal cannula oxygen 4 L - Continue with inhaled therapy as ordered DM2 - Patients A1C was 6.1 - c/w ISS Chronic Back pain - Will hold Hydrocodone (re: hypotension) - c/w Gabapentin CAD - Will hold ASA 81 (re: possible GI bleed) - c/w Atorvastatin History of Gout - Will resume Febuxostat within 24 hours Vitamin D / B12 deficiency - Will resume supplementation within 24 hours Sleep Disorder - Will resume Ambien once BP has normalized BPH - Will likely need to resume Tamsulosin within 24 hours PTSD - c/w Fluoxetine GERD / Marcial's esophagus - c/w Protonix DVT prophylaxis - c/w TEDs / Sequentials (re: Possible GI Bleed) Disposition: - Remain in ICU until BP is stable over the next 24 hours - Nephrology consulted for fluid management - c/w Stress dosing of steroids - Discontinue broad spectrum antibiotics if cultures negative - Trend H&H; if stable will advance diet; if trending down - will consult surgery / transfuse as needed - Anticipate 48-72 hours of further hospitalization VS,Fishbone, I+O VS, Fishbone, I+O Laboratory Tests 06/25/19 12:47 06/25/19 16:10 06/25/19 21:38 06/26/19 04:32 Vital Signs Date Time Temp Pulse Resp B/P (MAP) Pulse Ox O2 Delivery O2 Flow Rate FiO2 06/26/19 08:30 68 20 101/57 (74) 99 Nasal Cannula 4.0 06/26/19 08:00 97.2 I&O- Last 24 Hours up to 6 AM 06/26/19 06:00 Intake Total 4517 ml Output Total 1825 ml Balance 2692 ml KIKO [place] MD Jun 26, 2019 10:09
[2019-06-26 11:34] LABS: ABG BASE EXCESS -2.9 (-2.0-2.0); ABG HCO3 22.1 MEQ/L (22.0-26.0); ABG O2 SATURATION 97.8 % (95.0-99.0); ABG PARTIAL PRESSURE CO2 39.5 mmHg (35.0-45.0); ABG PARTIAL PRESSURE O2 103.6 mmHg (75.0-100.0); ABG TOTAL CO2 23.3 MEQ/L (23.0-31.0); ABG pH (ARTERIAL) 7.366 UNITS (7.350-7.450)
--- NOTE | 2019-06-26 11:40 | CR ---
DATE OF CONSULTATION: 06/25/2019 CHIEF COMPLAINT: Shock. HISTORY OF PRESENT ILLNESS: Mr. Frances is a 73-year-old male with a history of congestive heart failure (CHF), coronary artery disease (CAD), lupus. with interstitial lung disease and chronic hypoxemic respiratory failure on nasal cannula oxygen supplementation, chronic kidney disease (CKD), atrial fibrillation, diabetes, gastroesophageal reflux disease (GERD), who has a history of multiple admissions for decompensated CHF. He presented now with complaints of dizziness and a fall. The history from the patient is limited as he is drowsy and lethargic, and the history is obtained mostly from the chart and from other collateral information. The patient reportedly had denied any loss of consciousness with his fall. He had reported feeling more weak and fatigued for the past week leading up to his hospitalization. He denied having any chest pains. No heart racing or palpitation. He denied having any significant coughing. No fevers or chills or abdominal pain. He does report decreased oral intake, as well as some dark stools that he has noticed but no blood in his stools. On arrival, the patient was hypotensive. He was given fluid boluses with normal saline, a total of 3 liters now, and had some mild improvement in his blood pressure. The patient was also started on maintenance fluid for his hypotension. The patient was also given stress-dose steroids as he has a history of adrenal insufficiency and has been on hydrocortisone chronically as an outpatient. There was also concern for possible gastrointestinal (GI) bleed with a positive guaiac, and the patient was on anticoagulation for his atrial fibrillation as an outpatient. He was given 2 units of packed red blood cells (PRBC). Despite the transfusion and fluid boluses, the patient continued to be hypotensive in the intensive care unit (ICU). A critical care consult was called for his persistent hypotension, and he was also noted to have increasing lethargy and decreased responsiveness. The patient was, therefore, started on peripheral Levophed and then had a right internal jugular (vein) (IJ) triple lumen placed for vasopressor administration. With the administration of vasopressors and improvement in his blood pressure, his mental status also improved. PAST MEDICAL/SURGICAL HISTORY: CHF, CAD, interstitial lung disease with chronic hypoxemic respiratory failure on 4 liters a minute, lupus, membranous nephropathy, CKD, atrial fibrillation on anticoagulation, diabetes, GERD, benign prostatic hypertrophy (BPH), posttraumatic stress disorder (PTSD), knee surgery, cataract surgery, back surgery, renal biopsy. SOCIAL HISTORY: The patient is a former smoker, quit 14 years ago, was a smoker for 40 years. Denies any intravenous (IV) or illicit drug use. Denies alcohol use. FAMILY HISTORY: History of hypertension and diabetes. HOME MEDICATIONS: - Eliquis - aspirin - acarbose - atorvastatin - calcium - vitamin D - vitamin B12 - Procrit - ergocalciferol - famotidine - Uloric - ferrous gluconate - fluoxetine - gabapentin - hydrocortisone - magnesium chloride - metoprolol succinate - multivitamin - omeprazole - oxybutynin - Entresto - spironolactone - Flomax - torsemide 40 mg twice a day - albuterol as needed - hydrocodone/acetaminophen as needed - nitroglycerin as needed - zolpidem as needed ALLERGIES: ALLPURINOL. PHYSICAL EXAMINATION: Temperature 97.6, pulse 61, respirations 20, blood pressure 78/50, oxygen (O2) saturation 98% on 4 liters nasal cannula. Input 3.6 liters, out 725 mL General: The patient is lethargic and appears pale. He is responsive to painful stimuli and mumbling but only answering questions very intermittently. HEENT: Normocephalic, atraumatic. Pupils are reactive to light bilaterally. Moist mucous membranes. Neck is supple. Trachea is midline. There is no palpable cervical adenopathy. Cardiovascular: Irregularly irregular. Normal S1, S2. There is a faint systolic ejection murmur noted. Lungs: There are diminished breath sounds with mild crackles at the bases. No wheezing noted. Abdomen is soft, nontender, nondistended. There is no guarding or rebound tenderness. Extremities: There is no lower extremity edema noted bilaterally. LABORATORIES: WBC 10.9, hemoglobin was 8.6 improved to 9.8 after transfusion, platelets 242. Chemistry: Sodium is 131, potassium is 5.0, chloride is 100, bicarbonate is 22, BUN 87, creatinine is 4.75, glucose is 97. Lactic acid 1.0, BNP was 11,000, troponin is negative times two, AST and ALT within normal limits, TSH within normal limits. INR was 3.90. IMAGING: Chest CT shows emphysematous changes and chronic subpleural fibrosis in the upper and lower lobes, more in the lower lobes, as well as some pleural thickening which is unchanged. There is some more prominent pericardial thickening noted when compared to previous imaging. There are no new opacities or infiltrates noted. ASSESSMENT AND PLAN: The patient is a 73-year-old male with history of congestive heart failure, coronary artery disease, chronic kidney disease, lupus, chronic interstitial lung disease with chronic hypoxemic respiratory failure, atrial fibrillation, diabetes, adrenal insufficiency, who presents with weakness and a fall. The patient was found to be hypotensive, likely secondary to adrenal insufficiency with a concern for also possible GI bleed. The patient was also thought to be hypovolemic initially and was given 3 liters of normal saline but had minimal improvement in his blood pressure. The patient was also given stress-dose steroids with hydrocortisone but continued to be hypotensive and was noted to have increasing lethargy. 1. Shock, likely secondary to adrenal insufficiency, possible sepsis, although unclear source. Possible hypovolemic shock from a GI bleed, although no improvement after 2 units of PRBC in blood pressure, although hemoglobin responded appropriately. - The patient had a right IJ triple lumen placed for administration of vasopressors and was started on Levophed. Will continue with Levophed to maintain a mean arterial pressure (MAP) above 65. - Will repeat lactic acid and continue to trend. His initial lactic acid was normal, which would suggest hypotension from adrenal insufficiency but will followup repeat. - The patient was started on broad-spectrum antibiotics for possible sepsis, although there is no clear etiology for his sepsis. His CT chest did not show any new finding suggestive of pneumonia. His CT abdomen and pelvis did not show any acute findings, as well, but this was a noncontrast study. His cultures are still pending. Will continue with broad-spectrum antibiotics for now and will check a procalcitonin. - The patient also has a history of coronary artery disease and congestive heart failure. His shock may possibly be cardiogenic, although his troponins are negative times two, and he did appear to be perfusing with a normal lactate. Will followup with an echocardiogram to evaluate his cardiac function. 2. Acute of acute on chronic kidney disease. - The patient's creatinine is slowly improving, although he has not had significant urine output despite multiple boluses of fluids. Will followup with renal recommendations. - The patient does have hyponatremia and hyperkalemia, which can be consistent with his suspected adrenal insufficiency. Will continue to followup his sodium and his electrolytes. 3. History of atrial fibrillation and congestive heart failure. - The patient does have elevated brain natriuretic peptide (BNP), but given his hypotension his diuretics are on hold. Will continue to also hold his other antihypertensive medications. - Will hold his Eliquis for possible GI bleed. - Followup echocardiogram. 4. Anemia with positive guaiac. The patient is on anticoagulation, and his hemoglobin did trend down slightly which may partially be dilutional. He was given 2 units PRBC and appears to have appropriate response with his hemoglobin. - Will continue to monitor his hemoglobin and hematocrit and transfuse as needed. - Continue with Protonix twice a day. 5. Deep venous thrombosis (DVT) prophylaxis. Thromboembolic deterrents (TEDs) and sequentials. 6. Gastrointestinal (GI) prophylaxis. Protonix. FULL CODE. TOTAL CRITICAL CARE TIME SPENT: Not including procedures approximately 1 hour and 50 minutes. MTDD
[2019-06-26] MEDS: FLUoxetine 20 MG CAP PO SCH (12:53)
[2019-06-26] MEDS ORDERED: NOREPINEPHRINE BITARTRATE 8 MG in D5W 492 ML IV SCH (13:00)
[2019-06-26 18:36] LABS: HEMATOCRIT 33.5 % (42.0-52.0); HEMOGLOBIN 10.4 g/dl (13.5-17.5)
[2019-06-26 18:59] LABS: CALCIUM LEVEL 8.6 MG/DL (8.8-10.2); CREATININE FOR GFR 2.65 MG/DL (0.70-1.30); GLOMERULAR FILTRATION RATE 25.3 (>42); POTASSIUM SERUM 3.9 MEQ/L (3.5-5.1)
[2019-06-26] MEDS ORDERED: VANCOMYCIN HCL 500 MG in D5W MINI-BAG PLUS 100 ML IV ONE (21:00)
[2019-06-26] MEDS: ATORVASTATIN 20 MG TAB PO SCH (21:06)
[2019-06-26] MEDS: LIDOCAINE 5% (LIDODERM) PATCH TD SCH (21:34)
[2019-06-27] VITALS (16 sets, daily range): BP systolic 113–157; BP diastolic 62–93
--- NOTE | 2019-06-27 00:11 | CCN ---
DATE: 06/26/2019 The patient was seen and examined this morning during bedside rounds. The patient was weaned off of Levophed earlier this morning. His blood pressures have remained stable off of Levophed and his mental status this morning has also improved. The patient currently denies any complaints. He does have a chronic cough which is productive of sputum, sometimes dark brown in nature and but has not noticed any hemoptysis. He did have some blood in his sputum which was from his previous nosebleed. He denies any chest pain or increased shortness of breath. Has not had any lightheadedness or dizziness. No abdominal pain and no nausea or vomiting. PHYSICAL EXAM: Temperature 96.8, pulse 68, respirations 20, blood pressure 101/57, O2 sat 99% on 4 liters nasal cannula. In 540, out 05/1975. General: The patient is awake and alert, is able to answer questions appropriately and does not appear to a be in any respiratory distress. HEENT: Normocephalic, atraumatic. Pupils reactive to light bilaterally. There is moist mucous membranes. Neck is supple. Trachea is midline. There is no palpable cervical adenopathy. Cardiovascular: Irregularly irregular, normal S1-S2 with a faint systolic ejection murmur noted. Lungs: There is decreased breath sounds bilaterally with crackles more in the bases bilaterally. No wheezing or rhonchi noted. Abdomen is soft, nontender, nondistended. There is no guarding or rebound tenderness noted. Extremities: There is no lower extremity edema noted bilaterally. LABORATORY DATA: WBC 11.7, hemoglobin 9.8, platelets 300. Chemistry: Sodium is 135, potassium 4.6, chloride is 103, bicarb 22, BUN 79, creatinine is 3.67, glucose 152, lactic acid 0.6. ASSESSMENT/PLAN: The patient is a 73-year-old male with a history of congestive heart failure (CHF), coronary artery disease, chronic kidney disease (CKD), lupus chronic interstitial lung disease, chronic hypoxemic respiratory failure, atrial fibrillation, diabetes, adrenal insufficiency, who presented with weakness and a fall. The patient was hypotensive on admission, likely secondary to adrenal insufficiency with the concern also for possible hypovolemia from a GI bleed. The patient was given 3 liters normal saline bolus, as well as 2 units of packed red blood cells ( PRBC) yesterday, but continued to be hypovolemic. He therefore had a right IJ triple lumen placed and was started on Levophed. This morning he has been weaned off of the Levophed and his mental status appears improved. 1. Shock, likely secondary to adrenal insufficiency with possible hypovolemia from a GI bleed. The patient has been adequately fluid resuscitated, however; and he did continue to be hypotensive requiring Levophed briefly overnight. Sepsis is a possibility. However he did not have any clear source for possible infection. CT chest did not show any finding suggestive of pneumonia besides his chronic fibrosis and his CT abdomen and pelvis did not show any acute findings suggestive for any infectious etiology. His cultures were still pending. - I suspect the patient's hypotension is likely secondary to adrenal insufficiency. Will continue with hydrocortisone 50 mg every 8 hours and continue to wean down as tolerated. His normal lactic acid goes towards possible hypotension from adrenal insufficiency and less likely from sepsis or for cardiogenic shock and he appeared to be perfusing well with normal lactate - Will continue to monitor his blood pressures and maintain a MAP above 65. - Continue broad-spectrum antibiotics for now, but will follow up the procalcitonin to aid in de-escalation. - Will follow up the results of his echocardiogram. 2. Acute on chronic renal failure. - Will continue to monitor his creatinine and urine outputs. Will followup with renal recommendations. - The patient's hyponatremia and hyperkalemia were likely the setting of adrenal insufficiency and appears to be improving. 3. Atrial fibrillation and congestive heart failure (CHF). - The patient did have elevated BNP on admission; but given his hypotension, his diuretics were on hold. His antihypertensive medications are also on hold. - Will continue to hold anticoagulation for possible GI bleed. - Followup echocardiogram. 4. Anemia with a positive guaiac. The patient denied noticing any coffee- ground emesis, but he did have darker stools than usual. He was on anticoagulation as an outpatient. The patient was given 2 units of PRBC and his hemoglobin appears to respond appropriately and appears stable today. - Continue monitoring his hemoglobin and hematocrit and transfuse as needed - Continue Protonix twice a day. 5. Encephalopathy- likely metabolic, possibly secondary to medication such as gabapentin compounded by renal failure. He had ABG which did not show hypercarbia. Mental status appeared improved this morning. Deep vein thrombosis (DVT) prophylaxis. TEDs and SCDs. GI prophylaxis. Protonix. Full code. Total critical care time spent not including procedures approximately 40 minutes. Please do not hesitate to call if any further questions or concerns. ESTHELAD
[2019-06-27] MEDS ORDERED: ACETAMINOPHEN 650MG ER TAB (TYLENOL ARTHRITIS) PO PRN (01:30)
[2019-06-27] MEDS: LIDOCAINE 5% (LIDODERM) PATCH TD SCH ×2 (02:12→20:53)
[2019-06-27 04:36] LABS: HEMATOCRIT 32.3 % (42.0-52.0); HEMOGLOBIN 10.1 g/dl (13.5-17.5); MEAN CORPUSCULAR HEMOGLOBIN 28.5 pg (27.0-33.0); MEAN CORPUSCULAR HGB CONC 31.3 g/dl (32.0-36.5); PLATELET COUNT, AUTOMATED 312 10^3/uL (150-450); RED BLOOD COUNT 3.55 10^6/uL (4.30-6.10); WHITE BLOOD COUNT 14.3 10^3/uL (4.0-10.0)
[2019-06-27 04:59] LABS: CALCIUM LEVEL 8.7 MG/DL (8.8-10.2); CREATININE FOR GFR 2.15 MG/DL (0.70-1.30); GLOMERULAR FILTRATION RATE 32.2 (>42); POTASSIUM SERUM 4.1 MEQ/L (3.5-5.1); VANCOMYCIN RANDOM 16.5 UG/ML
--- NOTE | 2019-06-27 05:05 | PHACANCOPD ---
PHARMACY VANCOMYCIN DOSING Pt Demographics Demographics Patient Age:73 , Weight:104.200 , Gender: male Adjusted Body Weight Date: 06/25/19, Adjusted Body Weight: Kg Events Past 24 Hours Events Past 24 Hours: NO: Dialysis, Diuretic Therapy, Change in CrCl, Fever, Elevation in WBC, Pending Diagnostics, Pending Procedures, Other Vancomycin Vancomycin Target Ranges: 15-20 mcg/ml Vancomycin Load Y/N: Yes Load Dose Date Time Vancomycin Load Dose: 2000mg Date: 06-26 Time: 0000 Vancomycin Dose Date: 06/25/19. Current Vancomycin Dose: Intermittent Dosing?: Yes Labs Labs Item Value Date Time White Blood Count 14.3 10^3/uL H 06/27/19 0413 Glomerular Filtration Rate 32.2 L 06/27/19 0413 Creatinine 2.15 MG/DL H 06/27/19 0413 Blood Urea Nitrogen 57 MG/DL H 06/27/19 0413 Random Vancomycin Level 16.5 UG/ML 06/27/19 0413 Vital Signs Label Value Date Time Patient Temperature 98.0 degrees F 06/27/19 0400 Temperature Source Temporal 06/27/19 0400 Micro Microbiology 06/26/19 Stool Occult Blood (DANNY) - Final, Complete 06/26/19 Urine Culture, Received Pending 06/25/19 Blood Culture - Preliminary, Resulted No growth after 24 hours . All specim... 06/25/19 Blood Culture - Preliminary, Resulted No growth after 24 hours . All specim... Creatinine Clearance Date:06/27/19. Creatinine Clearance: [~30]. Pending Labs Random 01-07 in am Assessment and Plan Maintaining Current Dose?: Yes Reason for dose change: No Dose Change Pharmacist Note Pharmacist Note Date: 06/27/19. Pharmacist note:Random of 16.5 is within target range. Will dose with 1000mg 1-6 @0600. Will monitor and dose as needed. JEN WINN PHARMACY Jun 27, 2019 05:05
[2019-06-27] MEDS ORDERED: VANCOMYCIN HCL 1,000 MG, VIAL MATE ADAPTER 1 EACH in D5W 250 ML IV ONE (06:00)
[2019-06-27] MEDS: HYDROCORTISONE 100 MG/2 ML VIAL (J1720 PER 1) IV SCH ×2 (06:29→15:05)
--- NOTE | 2019-06-27 06:48 | ECHO ---
DATE OF STUDY: 06/25/2019 DATE OF : 1945 AGE: 73 REFERRING PHYSICIAN: Dr. Jessica Marcial PATIENT LOCATION: Room 3209 REASON FOR STUDY: Pericardial effusion. 2-D MEASUREMENTS: IVS: 1.1 cm LV: 5.3 cm LVPW: 1.1 cm LA: 5.2 cm Aorta: 3.5 cm IVC: 1.9 cm DOPPLER MEASUREMENTS: Peak velocity across the aortic valve: 1.8 m/s Peak velocity across the LVOT: 0.73 m/s Mitral E: 0.72 Maximum tricuspid valve velocity: 2.6 m/s 2-D COMMENTS: 1. Normal left ventricular size, wall thickness and a low normal global left ventricular systolic function. The estimated left ventricular systolic ejection fraction is 50-55%. 2. Moderately enlarged left atrium. The right atrium appeared to be mildly enlarged in limited views. Normal right ventricle. 3. The atrial septum appeared to be normal without evidence of defect or shunt. 4. Normal aortic root. 5. No pericardial effusion seen. 6. Mildly calcified aortic valve with minimal leaflet restriction. Mildly calcified mitral annulus with normal anterior mitral valve leaflet motion. Normal tricuspid valve. The pulmonic valve and proximal pulmonary artery branches were not well visualized. 7. The inferior vena cava was normal in size, central venous pressure may be normal. DOPPLER: It detects moderate mitral regurgitation and mild tricuspid regurgitation. The calculated pulmonary artery systolic pressure varies between 30-40 mmHg. Assessment of the left ventricular diastolic function was limited in view of the underlying arrhythmias. IMPRESSION: 1. Low normal global left ventricular systolic function. Assessment of the left ventricular diastolic function was limited, nondiagnostic. 2. Aortic valve sclerosis with trivial aortic stenosis, but no aortic regurgitation. 3. Mitral annulus calcification with moderate mitral regurgitation and moderately enlarged left atrium. 4. Mild tricuspid regurgitation with mild pulmonary hypertension. The right atrium appeared to be mildly enlarged. 5. The patient was in atrial fibrillation during the test, but with a controlled ventricular rate. 6. No pericardial effusion seen in this transthoracic echocardiogram. There was an echo free space noted anteriorly that may represent a pericardial fat pad.
[2019-06-27] MEDS: HumaLOG INSULIN (NovoLOG) PER UNIT SC SCH ×4 (09:07→20:53)
[2019-06-27] MEDS: PANTOPRAZOLE 40MG INJ (PROTONIX) (C9113) IV SCH ×2 (09:07→20:52)
[2019-06-27] MEDS: SUCRALFATE 1 GM TAB PO SCH ×2 (09:08→20:52)
[2019-06-27] MEDS: **NOTE PATIENT COMMENT** MISC XX SCH (09:08)
[2019-06-27] MEDS: CEFEPIME HCL 0.5 GM in D5W 50 ML IV SCH (09:57)
--- NOTE | 2019-06-27 11:05 | IPNPDOC ---
Date Seen The patient was seen on 06/27/19. Progress Note SUBJECTIVE: Patient was seen and examined at bedside this morning. There have been no adverse events reported overnight. He remains off of Levophed with MAP in the 80's. His CVP today is 6. He was reported to be lethargic however does not appear to be confused and answers all questions appropriately. He currently states that he has back pain and knee pain. He denies any chest pain, nausea, vomiting, fevers, or chills. OBJECTIVE PHYSICAL EXAMINATION: VITAL SIGNS: Please see below. GENERAL: Awake, alert, and oriented. Lying in bed comfortably. Appears in no acute distress. Appears pale HEENT: Atraumatic, normocephalic. Eyes are nonicteric. Trachea is midline CARDIOVASCULAR: Irregularly irregular rhythm. Regular rate. No clicks, rubs, or murmurs RESPIRATORY: Clear vesicular breath sounds bilaterally with good respiratory effort. No wheezes, rhonchi, or rales ABDOMINAL: Soft, nondistended. Nontender. No rebound tenderness or guarding. Normoactive bowel sounds throughout EXTREMITIES: 1-2+ pitting edema. 2+ posterior tibial and radial pulses bilaterally. Lidoderm patches on knees bilaterally NEUROLOGICAL: No focal neurological deficits PSYCHOLOGICAL: Mood and affect appears appropriate LABORATORY DATA, IMAGING STUDIES, MICROBIOLOGY: Please see below. Echocardiogram: DATE OF STUDY: 06/25/2019 DATE OF : 1945 AGE: 73 REFERRING PHYSICIAN: Dr. Jessica Nj PATIENT LOCATION: Room [facility] REASON FOR STUDY: Pericardial effusion. 2-D MEASUREMENTS: IVS: 1.1 cm LV: 5.3 cm LVPW: 1.1 cm LA: 5.2 cm Aorta: 3.5 cm IVC: 1.9 cm DOPPLER MEASUREMENTS: Peak velocity across the aortic valve: 1.8 m/s Peak velocity across the LVOT: 0.73 m/s Mitral E: 0.72 Maximum tricuspid valve velocity: 2.6 m/s 2-D COMMENTS: 1. Normal left ventricular size, wall thickness and a low normal global left ventricular systolic function. The estimated left ventricular systolic ejection fraction is 50-55%. 2. Moderately enlarged left atrium. The right atrium appeared to be mildly enlarged in limited views. Normal right ventricle. 3. The atrial septum appeared to be normal without evidence of defect or shunt. 4. Normal aortic root. 5. No pericardial effusion seen. 6. Mildly calcified aortic valve with minimal leaflet restriction. Mildly calcified mitral annulus with normal anterior mitral valve leaflet motion. Normal tricuspid valve. The pulmonic valve and proximal pulmonary artery branches were not well visualized. 7. The inferior vena cava was normal in size, central venous pressure may be normal. DOPPLER: It detects moderate mitral regurgitation and mild tricuspid regurgitation. The calculated pulmonary artery systolic pressure varies between 30-40 mmHg. Assessment of the left ventricular diastolic function was limited in view of the underlying arrhythmias. IMPRESSION: 1. Low normal global left ventricular systolic function. Assessment of the left ventricular diastolic function was limited, nondiagnostic. 2. Aortic valve sclerosis with trivial aortic stenosis, but no aortic regurgitation. 3. Mitral annulus calcification with moderate mitral regurgitation and moderately enlarged left atrium. 4. Mild tricuspid regurgitation with mild pulmonary hypertension. The right atrium appeared to be mildly enlarged. 5. The patient was in atrial fibrillation during the test, but with a controlled ventricular rate. 6. No pericardial effusion seen in this transthoracic echocardiogram. There was an echo free space noted anteriorly that may represent a pericardial fat pad. DD: JOSE COLIN MD 06/26/19 1135 DT: YESENIA 06/27/19 0636 DS: DS2: DVT prophylaxis ordered?: Mechanical ASSESSMENT AND PLAN: Patient is a 73 year old male who presented to the [facility] ER with hypotension likely secondary to GI bleed. He received IVF boluses x3 and 2 units of blood. He has a central venous catheter placed and was briefly started on Levophed. PROBLEMS: 1. Hypotension/Shock 2/2 adrenal insufficiency vs hypovolemia vs GI bleed vs unlikely sepsis -Patient was previously on Levophed. He has not received any pressor support since yesterday. Currently MAP > 65. -CVP this morning was 6 -Patient is currently on broad spectrum antibiotics including Vancomycin and Ceftriaxone. His Procalcitonin is 1.46. Procalcitonin may be falsely elevated in setting of renal failure and autoimmune disease/Lupus. He has had no objective signs of infection on imaging. He has remained afebrile. -U/A is negative for infection. Blood cultures are negative. Lactic acid has not been elevated -Vancomycin Cefepime DAY 3. Will D/C antibiotics today. -Patient is currently not on any IVF. He has received 3L on admission. He is tolerating PO intake. 2. Adrenal Insufficiency -Patient presented hypotensive, hyponatremic, hyperkalemic, and with a normal Lactic acid. Likely adrenal insufficiency. He is on Hydrocortisone 30 daily as an outpatient. Patient was given 100mg IV in the ER. -Will continue Hydrocortisone 50 IV q8H 3. Acute Blood Loss Anemia 2/2 GI bleed -Patient is currently s/p 2 units. Hbg is currently at baseline of 10 -Will continue to monitor -no reported bleeding. Patients diet has been advanced to a consistent carbohydrate meal -Will continue with protonix and carafate 4. Acute kidney injury in setting of chronic kidney disease stage 3-4 2/2 pre- renal -Patients admission Cr was 5.4 with a baseline Cr of 1.4. -Cr improved with IV hydration. -Nephrology has been consulted. Recommendations are appreciated. -Patient is tolerating PO intake. Will continue to hold diuretics. Will trend Cr. 5. Chronic Right Sided Congestive Heart Failure -Patient has multiple admissions for CHF exacerbations. He presented with hypotension and hypovolemia. He has received 3L of IVF. Will hold off on further IVF and encourage PO intake -Diuretics are currently on hold -Echocardiogram demonstrated LVEF 50-55%. Report attached above 6. Hyponatremia 2/2 adrenal insufficiency -Patient received 3L IV NS. Her sodium is 140 today. -Patient is receiving IV hydrocortisone for adrenal insufficiency 7. Chronic Atrial Fibrillation -Patient is currently rate controlled. Metoprolol is on hold -Patient is on Eliquis at home. This is held due to possible GI bleed 8. Interstitial Lung Disease with chronic oxygen dependent respiratory failure -At baseline patient requires 4L NC. He is currently at his baseline -[place] PRN -Oxygen therapy orders for O2 sats 88-92% 9. Diabetes Mellitus Type 2 -Patients A1C was 6.1. Will continue to monitor. -ACHS with sliding scale coverage 10. Chronic Back Pain -Patient is on [place] at home. He normally takes 10-325 TID as needed. -Will give 5-325 1 tab q6h PRN 11. CAD -Patient is on aspirin and atorvastatin as an outpatient -Will hold aspirin 12 Gout -Currently holding Febuxostat 13 Vitamin D / Vitamin B12 -Will resume patients oral Vitamin D and B12 14. Sleep Disorder -Patient is on Ambien. Currently held given BP -Will await for renal function to normalize. 15. BPH -Patients BP has improved. Will resume Flomax 16. PTSD -Continue with Fluoxetine 17 GERD -Protonix 18. DVT Prophylaxis -Teds and Sequentials VS, I&O, 24H, Fishbone Vital Signs/I&O Vital Signs Date Time Temp Pulse Resp B/P (MAP) Pulse Ox O2 Delivery O2 Flow Rate FiO2 06/27/19 08:00 98.3 79 20 113/77 (89) 96 Nasal Cannula 2.0 I&O- Last 24 Hours up to 6 AM 06/27/19 06:00 Intake Total 2492.75 ml Output Total 2500 ml Balance -7.25 ml Laboratory Data 24H LABS Laboratory Tests 2 06/26/19 11:23: Blood Gas Bicarbonate Standard 22.0, Arterial Blood pH 7.366, Arterial Blood Partial Pressure CO2 39.5, Arterial Blood Partial Pressure O2 103.6H, Arterial Blood Total CO2 23.3, Arterial Blood HCO3 22.1, Arterial Blood Base Excess - 2.9L, Arterial Blood Oxygen Saturation 97.8 06/26/19 11:33: Methicillin-Resist S.aureus DNA PCR NOT DETECTED 06/26/19 11:36: Bedside Glucose (Misc Panel) 130H 06/26/19 18:20: Anion Gap 9, Glomerular Filtration Rate 25.3L, Calcium Level 8.6L 06/26/19 18:27: Bedside Glucose (Misc Panel) 146H 06/26/19 21:05: Bedside Glucose (Misc Panel) 147H 06/27/19 00:06: Bedside Glucose (Misc Panel) 130H 06/27/19 04:13: Nucleated Red Blood Cells % (auto) 0.0, Anion Gap 9, Glomerular Filtration Rate 32.2L, Calcium Level 8.7L, Random Vancomycin Level 16.5 CBC/BMP Laboratory Tests 06/26/19 11:33 06/26/19 18:20 06/26/19 18:26 06/27/19 04:13 Microbiology Microbiology 06/26/19 Stool Occult Blood (DANNY) - Final, Complete 06/26/19 Urine Culture, Received Pending 06/25/19 Blood Culture - Preliminary, Resulted No growth after 24 hours . All specim... 06/25/19 Blood Culture - Preliminary, Resulted No growth after 24 hours . All specim... GME ATTESTATION GME ATTESTATION My faculty preceptor for this patient encounter was physically present during the encounter and was fully available. All aspects of the patient interview, examination, medical decision making process, and medical care plan development were reviewed and approved by the faculty preceptor. The faculty preceptor is aware and concurs with the plan as stated in the body of this note and will attest to such by his/her cosignature. ATTENDING NOTE I, Jessica Nj, have independently examined this patient and performed my own physical exam, as well as reviewed the documentation and edited where necessary. I have discussed in detail with the resident / student the findings and plan of treatment as documented by the resident / student and edited their note. I agree with their findings and treatment plan and have edited their documentation. I will continue to follow the patient during this hospital stay. ROBBIE HERNANDEZ DO Jun 27, 2019 11:05 JESSICA NJ MD Jun 27, 2019 14:33
[2019-06-27] MEDS: CYANOCOBALAMIN 500 MCG TAB PO SCH (11:49)
[2019-06-27] MEDS: FLUoxetine 20 MG CAP PO SCH (11:50)
[2019-06-27] MEDS: CALCIUM/VITAMIN D 500 MG TAB PO SCH ×2 (11:50→20:52)
--- NOTE | 2019-06-27 12:30 | CR ---
DATE OF CONSULTATION: 06/26/2019 REQUESTING PHYSICIAN: Dr. Fernanda Reynolds REASON FOR CONSULTATION: Acute kidney injury in this patient with chronic kidney disease stage III. Angel Frances is well known to me. He is a 73-year-old male with a past medical history of biopsy-proven lupus membranous nephropathy, chronic kidney disease stage III with prior history of hemodialysis and a baseline creatinine in the low 1s, history of systolic congestive heart failure, atrial fibrillation and multiple other comorbidities, including lupus lung involvement and chronic oxygen dependence, coronary artery disease, diabetes. He presented to the emergency room yesterday with complaint of increasing and progressive weakness and fatigue with recent fall at home with concomitant report of recent dark-colored stools but without any lydia blood in the stool. On arrival, the patient was severely hypotensive with blood pressure of 54/30. He received 3 liters of normal saline bolus and was started on normal saline 100 mL an hour. He was also given stress dose steroids as he has been on hydrocortisone chronically as an outpatient. His stool guaiac returned positive and the patient was transfused 2 units of packed red blood cells. Despite the blood cells and the fluid boluses, he continued to be significantly hypotensive and had very poor urine output. Laboratories showed acute kidney injury on CKD. The patient was subsequently started on Levophed pressor support overnight with improvement in his mentation and urine output. Nephrology consultation was requested for help with the management of his acute kidney injury. PAST MEDICAL HISTORY: 1. Systolic congestive heart failure. 2. 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 3. Interstitial lung disease with chronic hypoxemic respiratory failure on 4 liters of oxygen via nasal cannula. 4. Chronic kidney disease stage III. 5. Atrial fibrillation on anticoagulation. 6. Diabetes. 7. Gastroesophageal reflux disease. 8. Benign prostatic hypertrophy (BPH). 9. Post-traumatic stress disorder. 10. Marcial's esophagus. PAST SURGICAL HISTORY: Knee surgery, cataract surgery, back surgery, [place] renal biopsy. FAMILY HISTORY: Hypertension and diabetes. SOCIAL HISTORY: He is a ex-smoker. Does not drink alcohol. Lives with daughter HOME MEDICATIONS: Home medications were reviewed: - acarbose - albuterol - apixaban 5 mg by mouth twice a day - aspirin 81 mg by mouth daily - atorvastatin 20 mg by mouth at night - calcium plus vitamin D - B12 1000 mcg by mouth daily - Procrit 20,000 units subcutaneous every other week - vitamin D2 50,000 units p.o. once a week - Pepcid 20 mg by mouth twice daily - Uloric 80 mg by mouth daily - ferrous gluconate 324 mg by mouth twice daily - fluoxetine 80 mg by mouth daily - gabapentin 600 mg by mouth three times a day - Percocet - hydrocortisone 20 mg in the morning 10 mg in the evening - magnesium 1 tablet by mouth daily - metoprolol 50 mg tablet extended-release once daily - multivitamin one daily - omeprazole 40 mg by mouth twice daily - oxybutynin 15 mg by mouth daily - Entresto 1 tablet at bedtime - spironolactone 25 mg by mouth daily - Flomax 0.4 mg by mouth at night - torsemide 40 mg by mouth twice daily ALLERGIES: ALLOPURINOL. REVIEW OF SYSTEMS: Review of systems was difficult to obtain secondary to clinical condition. The patient is having poor mentation at the time of my visit at the bedside in the intensive care unit (ICU). History is obtained from chart review. PHYSICAL EXAMINATION: VITAL SIGNS: Temperature 97.2, pulse 62, respiratory rate 18, blood pressure 118/62, saturating 98% on 4 liters nasal cannula. Intake yesterday was 4 liters, urine output thus far is 2.6 liters. Weight on the bed scale today is 108.4 kg. GENERAL: The patient is seen in the intensive care unit. Head of bed elevated. Elderly male, lethargic and pale. Opens eyes to verbal and tactile stimulus but does not participate in conversation nor follow commands. Pupils are reactive to light. Makes eye contact only briefly. Mucous membranes are moist. Neck is supple. The jugular veins are not elevated. CARDIAC: Irregularly irregular. There is no edema in the legs nor in the dependent areas. LUNGS: There is distant and diminished breath sounds bilaterally. There is occasional scattered crackle. ABDOMEN: Soft and nontender. There are bowel sounds. There is no distended bladder. EXTREMITIES: Negative for clubbing, cyanosis or edema. NEUROLOGIC: He is arousable to verbal and tactile stimulus. He is not alert and not oriented. Blood pressure at the time of my visit in the ICU was 80s over 50s. LABORATORIES: Sodium was 135, potassium 4.6, BUN 79, creatinine 3.6, hemoglobin 10.0, blood gas shows pH 7.3, pCO2 39, pO2 103. Blood cultures and urine culture is pending. Chest x-ray June 25, 2019 shows mild diffuse interstitial edema and no pleural effusion. Renal ultrasound June 25, 2019 showed no hydronephrosis. INPATIENT MEDICATIONS: - cefepime 0.5 gram IV every 12 hours. - Levophed - 3 liters of normal saline was received yesterday - renally dosed vancomycin - atorvastatin 20 mg by mouth at night - Prozac 80 mg by mouth daily - gabapentin was discontinued - hydrocortisone 50 mg IV every 8 hours - insulin sliding scale - Protonix 80 mg IV once and then 40 mg IV twice a day - Carafate 1 gram by mouth twice a day PROBLEMS: 1. Acute kidney injury on chronic kidney disease stage III in this patient with history of lupus associated membranous nephropathy and recurrent prior acute kidney injury requiring hemodialysis treatment in the past. Present acute kidney injury is likely secondary to hypotension / hypovolemia. Baseline creatinine is around 1.5. He received 3 liters of IV fluids and he was started on stress dose steroids and also on pressor support. With the fluid administration and with the improvement in mean arterial pressure, the patient has had improvement in urine output and his creatinine is down trending from 5.2 to 3.6 today. Please target MAP of 70 in this patient. His antihypertensives and diuretics have all been held. 2. Severe hypotension in this patient who is steroid dependent (hydrocortisone as outpatient). He is receiving stress dose steroids. There is also concern for possible gastrointestinal bleed. He has received packed red blood cells. He has received aggressive IV fluids. He is immunocompromised and infectious workup is underway. Blood culture and urine culture is pending. There is very mild leukocytosis. He is afebrile. 3. Congestive heart failure. The patient had a history of systolic congestive heart failure, however, his most recent echocardiogram showed preserved left ventricular systolic function. He has marked elevation in BNP. Central venous pressure today was reportedly only 3, however, given the improvement in renal function with pressor support and already aggressive IV hydration given yesterday, would hold off on further IV fluids at present time and we will discuss with the ICU nurse again in the evening regarding his markers for volume status. He is off all his home diuretics. 3. Hyponatremia, possibly related to adrenal insufficiency and hypokalemia or a combination. His sodium level has improved nicely with IV steroids and with normal saline boluses. 4. Possible gastrointestinal bleed. The patient is status post 2 units of packed red blood cells. Hemoglobin has remained about the same 9.5 to 9.8 and that is likely because he has also concomitantly received aggressive IV fluids. He is on Protonix and Carafate. He is tolerating a clear liquid diet. Thank you for involving me in the care of Mr. Angel Frances, I will be happy to follow him along with you.
--- NOTE | 2019-06-27 14:24 | IPN ---
DATE: 06/27/2019 The patient is seen and examined this morning at the bedside in the intensive care unit. He has gotten out of bed to the chair. He remains off of Levophed pressor support since 2:00 p.m. yesterday. He is having adequate urine output. His renal function shows improvement. He reports he just feels very weak. He also complains of his usual chronic aches and pains and wants to go back on hydrocodone which he takes at home. He denies shortness of breath at rest. He denies any trouble emptying his bladder. PHYSICAL EXAMINATION: Vital signs: Temperature 98.1, pulse 85, respiratory rate 20, blood pressure 130/67, saturating 98% on 2 liters nasal cannula. Intake yesterday was 2.5 liters, urine output yesterday was 2.9 liters, net negative 400, weight on the bed scale today is 104.2. Kg. GENERAL: The patient is seen sitting out of bed to the chair. Awake, alert, oriented times three, interactive, conversational at baseline mentation in no acute distress. Extraocular muscles are intact. Pupils are reactive to light bilaterally. The mucous membranes are moist. The neck is supple. Jugular veins were not elevated while he was sitting upright. The trachea is midline. CARDIAC: Irregularly irregular. There is no edema in the peripheries nor in the dependent area. LUNGS: Show crackles scattered bilaterally and diminished air movement but he is comfortable on nasal cannula. No tachypnea. No accessory muscle use. ABDOMEN: Soft and nontender. EXTREMITIES: Show no edema. SKIN: Normal temperature and turgor. LABORATORY DATA: White count 14.3, hemoglobin 10.1, sodium 140, potassium 4.1, bicarbonate 22, BUN 57, creatinine 2.1. INPATIENT MEDICATIONS: He was started on hydrocodone per the primary team. He was resumed on Flomax 0.4 mg by mouth at night. Lidocaine patch was also reordered. Calcium plus vitamin D 500 mg twice daily was reordered. Remainder of medications are unchanged from prior. PROBLEMS: 1. Acute kidney injury on chronic kidney disease stage III, nonoliguric. His renal failure was likely secondary to severe hypotension / overdiuresis / possible gastrointestinal bleed / adrenal insufficiency. He was treated with IV steroids and aggressive IV fluids and pressor support. He was transfused blood. His renal function is improving nicely. His urine output remains adequate. Primary team has resumed his Flomax. I will continue to hold his diuretics at present, and also continue to hold his antihypertensives as well. 2. History of diastolic congestive heart failure. The patient previously had a history of systolic congestive heart failure; however his most recent echocardiogram showed preserved left ventricular ejection fraction . At home he takes Entresto and torsemide and spironolactone. Presently, all his diuretics are held, along with his ARB. His volume status actually looks reasonably compensated to me. I would not resume diuretics until his renal function recovers to baseline. 3. Hypotension. It was likely multifactorial and secondary to adrenal insufficiency/ over diuresis / possible GI bleed. His infectious workup so far is negative. He is afebrile. He is still receiving stress dose steroids, and I suggest that this can be changed to oral formulation at this point. 4. Hypervolemic hyponatremia, probably secondary to combination overdiuresis and adrenal insufficiency. His sodium levels have normalized with IV fluid and with stress dose steroids. 5. Interstitial lung disease, likely related to lupus with chronic hypoxemic respiratory failure. At home he usually requires 4 liters, at present he is on 2-3 liters via nasal cannula. Again, no urgent need for diuretic resumption at present given his fairly compensated volume status and decreased oxygen requirements as compared to home. 6. Chronic opioid dependence status post metabolic encephalopathy. The patient had been quite altered but today his mentation seems to be back to baseline. He has been on chronic hydrocodone for a long time as an outpatient and this can likely be resumed at low dose at this point.
[2019-06-27] MEDS ORDERED: SLF 3 ML SYR IV PRN (15:00)
[2019-06-27] MEDS: PERCOCET 5MG/325MG TAB PO PRN ×2 (15:08→21:42)
[2019-06-27] MEDS: TAMSULOSIN 0.4 MG CAP PO SCH (20:52)
[2019-06-27] MEDS: ATORVASTATIN 20 MG TAB PO SCH (20:52)
[2019-06-27] MEDS: SLF 3 ML SYR IV SCH (20:54)
[2019-06-27] MEDS ORDERED: **NOTE PATIENT COMMENT** MISC XX SCH (21:00)
[2019-06-28 01:55] VITALS: BP 130/69
[2019-06-28] MEDS ORDERED: HYDROCORTISONE 100 MG/2 ML VIAL (J1720 PER 1) IV SCH (03:00)
[2019-06-28 06:00] VITALS: BP 131/71
[2019-06-28] MEDS: SLF 3 ML SYR IV SCH ×3 (06:01→20:55)
[2019-06-28 06:03] LABS: HEMATOCRIT 32.5 % (42.0-52.0); HEMOGLOBIN 10.2 g/dl (13.5-17.5); MEAN CORPUSCULAR HEMOGLOBIN 28.8 pg (27.0-33.0); MEAN CORPUSCULAR HGB CONC 31.4 g/dl (32.0-36.5); MEAN CORPUSCULAR VOLUME 91.8 fl (80.0-96.0); PLATELET COUNT, AUTOMATED 301 10^3/uL (150-450); RED BLOOD COUNT 3.54 10^6/uL (4.30-6.10); WHITE BLOOD COUNT 9.5 10^3/uL (4.0-10.0)
[2019-06-28 06:26] LABS: CALCIUM LEVEL 9.3 MG/DL (8.8-10.2); CREATININE FOR GFR 1.54 MG/DL (0.70-1.30); GLOMERULAR FILTRATION RATE 47.4 (>42); POTASSIUM SERUM 3.8 MEQ/L (3.5-5.1)
[2019-06-28] MEDS: HumaLOG INSULIN (NovoLOG) PER UNIT SC SCH ×4 (08:12→20:48)
[2019-06-28] MEDS: **NOTE PATIENT COMMENT** MISC XX SCH (08:14)
[2019-06-28] MEDS: SUCRALFATE 1 GM TAB PO SCH ×2 (08:14→20:54)
[2019-06-28] MEDS: CEFDINIR 300 MG CAP (OMNICEF) PO SCH ×2 (08:14→20:53)
[2019-06-28] MEDS: PANTOPRAZOLE 40MG INJ (PROTONIX) (C9113) IV SCH (08:14)
[2019-06-28] MEDS: CYANOCOBALAMIN 500 MCG TAB PO SCH (08:14)
[2019-06-28] MEDS: CALCIUM/VITAMIN D 500 MG TAB PO SCH ×2 (08:14→20:53)
--- NOTE | 2019-06-28 11:56 | IPNPDOC ---
Date Seen The patient was seen on 06/28/19. Progress Note SUBJECTIVE: Patient was seen and examined this morning. He currently has no new complaints. He states that he feels well. He denies any shortness of breath. He denies any lightheadedness. He does have chronic back and neck pain. OBJECTIVE PHYSICAL EXAMINATION: VITAL SIGNS: Please see below. GENERAL Awake, alert, and oriented. Sitting in chair comfortably. Appear in no acute distress. HEENT: Atraumatic, normocephalic. Eyes are nonicteric. trachea is midline CARDIOVASCULAR: Irregularly irregular rhythm. Normal rate. No clicks, rubs, or murmurs RESPIRATORY: Clear vesicular breath sounds bilaterally with fine crackles in the bases bilaterally. No wheezes, rhonchi, or rales ABDOMINAL: Soft, nondistended. nontender. No rebound tenderness or guarding. Normoactive bowel sounds throughout EXTREMITIES: No edema. 2+ posterior tibial pulses and radial pulses bilaterally NEUROLOGICAL: No focal neurological deficits PSYCHOLOGICAL: Mood and affect appear appropriate LABORATORY DATA, IMAGING STUDIES, MICROBIOLOGY: Please see below. Echocardiogram: DATE OF STUDY: 06/25/2019 DATE OF : 1945 AGE: 73 REFERRING PHYSICIAN: Dr. Jessica Marcial PATIENT LOCATION: Room 3209 REASON FOR STUDY: Pericardial effusion. 2-D MEASUREMENTS: IVS: 1.1 cm LV: 5.3 cm LVPW: 1.1 cm LA: 5.2 cm Aorta: 3.5 cm IVC: 1.9 cm DOPPLER MEASUREMENTS: Peak velocity across the aortic valve: 1.8 m/s Peak velocity across the LVOT: 0.73 m/s Mitral E: 0.72 Maximum tricuspid valve velocity: 2.6 m/s 2-D COMMENTS: 1. Normal left ventricular size, wall thickness and a low normal global left ventricular systolic function. The estimated left ventricular systolic ejection fraction is 50-55%. 2. Moderately enlarged left atrium. The right atrium appeared to be mildly enlarged in limited views. Normal right ventricle. 3. The atrial septum appeared to be normal without evidence of defect or shunt. 4. Normal aortic root. 5. No pericardial effusion seen. 6. Mildly calcified aortic valve with minimal leaflet restriction. Mildly calcified mitral annulus with normal anterior mitral valve leaflet motion. Normal tricuspid valve. The pulmonic valve and proximal pulmonary artery branches were not well visualized. 7. The inferior vena cava was normal in size, central venous pressure may be normal. DOPPLER: It detects moderate mitral regurgitation and mild tricuspid regurgitation. The calculated pulmonary artery systolic pressure varies between 30-40 mmHg. Assessment of the left ventricular diastolic function was limited in view of the underlying arrhythmias. IMPRESSION: 1. Low normal global left ventricular systolic function. Assessment of the left ventricular diastolic function was limited, nondiagnostic. 2. Aortic valve sclerosis with trivial aortic stenosis, but no aortic regurgitation. 3. Mitral annulus calcification with moderate mitral regurgitation and moderately enlarged left atrium. 4. Mild tricuspid regurgitation with mild pulmonary hypertension. The right atrium appeared to be mildly enlarged. 5. The patient was in atrial fibrillation during the test, but with a controlled ventricular rate. 6. No pericardial effusion seen in this transthoracic echocardiogram. There was an echo free space noted anteriorly that may represent a pericardial fat pad. DD: JOSE COLIN MD 06/26/19 1135 DT: YESENIA 06/27/19 0636 DS: DS2: DVT prophylaxis ordered?: Mechanical ASSESSMENT AND PLAN: Patient is a 73 year old male who presented to the [facility] ER with hypotension likely secondary to GI bleed. He received IVF boluses x3 and 2 units of blood. He had a central venous catheter placed and was briefly started on Levophed. The patient improved clinically and was transferred to PCU status. His blood pressure remained appropriate and he was transferred to Med/Surg status. He is continued on oral hydrocortisone with tapering dose. His diuretics have been resumed today PROBLEMS: 1. Hypotension/Shock 2/2 adrenal insufficiency vs hypovolemia vs GI bleed vs unlikely sepsis -Patient was previously on Levophed. Remains off of Pressor support. Patient has had central venous catheter removed yesterday -Patient was previously on broad spectrum antibiotics including Vancomycin and Ceftriaxone. His Procalcitonin is 1.46. Procalcitonin may be falsely elevated in setting of renal failure and autoimmune disease/Lupus. He has had no objective signs of infection on imaging. He has remained afebrile. -U/A is negative for infection. Blood cultures are negative. Lactic acid has not been elevated -Vancomycin Cefepime DAY 3. Will D/C antibiotics today. -Patient is currently not on any IVF. He has received 3L on admission. He is tolerating PO intake. 2. Adrenal Insufficiency -Patient presented hypotensive, hyponatremic, hyperkalemic, and with a normal Lactic acid. Likely adrenal insufficiency. He is on Hydrocortisone 30 daily as an outpatient. Patient was given 100mg IV in the ER. -Patient has been transitioned to PO Hydrocortisone. Currently 20 q6h. Will discharge with 30mg daily and 20qpm. Patient will be managed by Nephrology as outpatient 3. Acute Blood Loss Anemia 2/2 GI bleed -Patient is currently s/p 2 units. Hbg is currently at baseline of 10 -Will continue to monitor -no reported bleeding. Patients diet has been advanced to a consistent carbohydrate meal -Transition to PO protonix. Continue Carafate -Patient will need follow-up with PCP and GI for consideration of endoscopy 4. Acute kidney injury in setting of chronic kidney disease stage 3-4 2/2 pre-renal -Patients admission Cr was 5.4 with a baseline Cr of 1.4. -Cr improved with IV hydration. -Nephrology has been consulted. Recommendations are appreciated. -Patient is tolerating PO intake. -Patient is close to baseline with Cr of 1.54 today. -per nephrology recommendations, pt is to be resumed on Torsemide 20mg BID, Spironolactone 25mg QAM -Entresto has been discontinued per nephrology recommendations 5. Chronic Right Sided Congestive Heart Failure -Patient has multiple admissions for CHF exacerbations. He presented with hypotension and hypovolemia. He has received 3L of IVF. Will hold off on further IVF and encourage PO intake -Torsemide 20mg BID and Spironolactone 25mg QAM. Have stopped Entresto. -Echocardiogram demonstrated LVEF 50-55%. Report attached above 6. Hyponatremia 2/2 adrenal insufficiency -Patient received 3L IV NS. Her sodium is 140 today. -Patient has received hydrocortisone. -Sodium has normalized 7. Chronic Atrial Fibrillation -Patient is currently rate controlled. Will continue metoprolol on discharge -Patient is on Eliquis at home. This will likely be resumed on discharge 8. Interstitial Lung Disease with chronic oxygen dependent respiratory failure -At baseline patient requires 4L NC. He is currently at his baseline -Duonebs PRN -Oxygen therapy orders for O2 sats 88-92% 9. Diabetes Mellitus Type 2 -Patients A1C was 6.1. Will continue to monitor. -ACHS with sliding scale coverage 10. Chronic Back Pain -Patient is on [place] at home. He normally takes 10-325 TID as needed. -Will give 5-325 1 tab q6h PRN 11. CAD -Patient is on aspirin and atorvastatin as an outpatient -Will hold aspirin 12 Gout -Currently holding Febuxostat 13 Vitamin D / Vitamin B12 -Will resume patients oral Vitamin D and B12 14. Sleep Disorder -Patient is on Ambien. Currently held given BP -Will await for renal function to normalize. 15. BPH -Patients BP has improved. Will resume Flomax 16. PTSD -Continue with Fluoxetine 17 GERD -Protonix 18. DVT Prophylaxis -Teds and Sequentials DISPOSITION: Patient will be discharged tomorrow AM. He has passed PT HOSPITALIST ATTENDING NOTE: I have independently interviewed and examined the patient at the bedside, agree with the physical findings and discussed the overall management plan with my resident physician as documented above. VS, I&O, 24H, Fishbone Vital Signs/I&O Vital Signs Date Time Temp Pulse Resp B/P (MAP) Pulse Ox O2 Delivery O2 Flow Rate FiO2 06/28/19 08:12 2.0 06/28/19 06:00 97.8 78 16 131/71 (91) 95 Nasal Cannula I&O- Last 24 Hours up to 6 AM 06/28/19 06:00 Intake Total 810 ml Output Total 850 ml Balance -40 ml Laboratory Data 24H LABS Laboratory Tests 2 06/27/19 17:13: Bedside Glucose (Misc Panel) 95 06/27/19 19:44: Bedside Glucose (Misc Panel) 140H 06/28/19 05:49: Nucleated Red Blood Cells % (auto) 0.0, Anion Gap 7L, Glomerular Filtration Rate 47.4, Calcium Level 9.3 CBC/BMP Laboratory Tests 06/28/19 05:49 Microbiology Microbiology 06/26/19 Stool Occult Blood (DANNY) - Final, Complete 06/26/19 Urine Culture - Final, Complete Pseudomonas Aeruginosa 06/25/19 Blood Culture - Preliminary, Resulted No Growth after 48 hours. All Specime... 06/25/19 Blood Culture - Preliminary, Resulted No Growth after 48 hours. All Specime... ROBBIE HERNANDEZ DO Jun 28, 2019 11:56 DAVION LAGUNAS MD Jun 28, 2019 13:51
[2019-06-28] MEDS: HYDROCORTISONE 10 MG TAB PO SCH ×3 (12:09→23:31)
[2019-06-28] MEDS: FLUoxetine 20 MG CAP PO SCH (12:09)
--- NOTE | 2019-06-28 13:23 | IPN ---
DATE OF SERVICE: 06/28/2019 General: Angel is seen and examined this morning sitting out of bed to the chair. Reports he feels stronger. Reports he walked around a little bit. He is going to be working with physical therapy. He is requiring only 2 liters of supplemental oxygen. at home, he usually uses 4 liters. Blood pressures have been stable as well. He denies any trouble with passing urine. I discussed with him changes that are going to be made for his medications as far as discharge is concerned. Temperature 97.8, pulse 78, respiratory rate 16, blood pressure 131/71, saturating 95% on 2 liters nasal cannula. Intake yesterday was 1 liter. Urine output yesterday was 1250. Weight in the bed scale today was not recorded. General: The patient was seen awake, alert, oriented, comfortable, sitting out of bed to the chair. Elderly male in no apparent distress. Extraocular muscles are intact. Pupils are round and reactive to light. Mucous membranes are moist. Neck is supple. Jugular veins were not elevated while he was sitting upright. Trachea is midline. Cardiac: Irregularly irregular. There is absolutely no edema in the peripheries nor in the dependent area. Lungs show his typical scattered crackles and diminished air movement, but he is comfortable on 2 liters nasal cannula. No tachypnea. No accessory muscle use. Abdomen is soft and nontender. Positive bowel sounds. Extremities: Negative for edema. The legs are wrinkled. Skin: Normal temperature and turgor. LABS: White count 9.5, hemoglobin 10.2, platelet 301. Sodium 138, potassium 3.8, BUN 54, creatinine 1.5. INPATIENT MEDICATIONS: I have written for him to resume diuretics tomorrow, torsemide 20 mg by mouth twice daily and spironolactone 25 mg once daily. Primary team has switched him to hydrocortisone 20 mg by mouth every 6 hours. He is receiving [place] plus vitamin D 500 mg twice daily. His IV antibiotic was discontinued and switched to Cefdinir 300 mg by mouth twice daily. His IV Protonix was discontinued and switched to Protonix 40 mg by mouth twice daily. Remainder medications are unchanged as compared to yesterday. PROBLEMS: 1. Acute kidney injury (CATHY) on chronic kidney disease (CKD) stage III, nonoliguric, renal failure was secondary to severe hypotension/overdiuresis/possible gastrointestinal (GI) bleed/adrenal insufficiency. He was treated with IV steroids, aggressive IV fluids, pressor support and blood. His renal function has improved back towards baseline. His urine output remains adequate. His volume status is compensated, and I am going to resume his diuretics tomorrow but at half the dose of what he was taking at home. 2. History of diastolic congestive heart failure. The patient previously had a history of systolic congestive heart failure. However, most recent echocardiogram showed preserved left ventricular ejection fraction. At home, he takes torsemide and spironolactone. These are being resumed tomorrow. At home, he also takes Entresto. However, that is only indicated for systolic heart failure and not diastolic. In view of this and also in view of his recent acute kidney injury and controlled blood pressures, I have asked him to stay off of Entresto (he was taking the lowest dose and only once daily). His volume status looks compensated at present. 3. Hypertension/hypotension. The patient's blood pressures have improved with IV steroids, IV fluids, and blood product administration. His infectious workup revealed a urinary tract infection (UTI). He is now transitioned over to oral antibiotics. His IV steroids are now switched to oral. Please keep him off of Entresto. Torsemide and spironolactone are being resumed tomorrow. 4. Hypovolemic/hyponatremia secondary to combination overdiuresis and adrenal insufficiency and has improved with management as previously discussed. 5. Interstitial lung disease likely related to lupus with chronic hypoxemic respiratory failure. He is requiring less oxygen than his usual home prescription. His diuretic is being resumed at half dose given compensated volume status and decreased oxygen requirements. DISPOSITION: The patient can likely be discharged tomorrow from a nephrology point of view. Please keep him off of Entresto. Torsemide can be resumed tomorrow at 20 mg twice daily and spironolactone can be resumed at 25 mg once daily. Orders have already been written. Resumption of his anticoagulation is as per primary team. Hydrocortisone can be adjusted to 30 mg in the morning and 20 mg in the evening with further tapering to be done in the outpatient setting.
[2019-06-28 14:00] VITALS: BP 130/75
[2019-06-28] MEDS ORDERED: HYDR20TA17 PO ×2 (14:02)
[2019-06-28] MEDS ORDERED: CEFD300CAP PO (14:02)
[2019-06-28] MEDS ORDERED: TORS20TA2 PO (14:02)
[2019-06-28] MEDS: ATORVASTATIN 20 MG TAB PO SCH (20:53)
[2019-06-28] MEDS: PANTOPRAZOLE 40MG TAB (PROTONIX) PO SCH (20:53)
[2019-06-28] MEDS: TAMSULOSIN 0.4 MG CAP PO SCH (20:53)
[2019-06-28] MEDS: PERCOCET 5MG/325MG TAB PO PRN (20:54)
[2019-06-28] MEDS: LIDOCAINE 5% (LIDODERM) PATCH TD SCH (20:54)
[2019-06-28 22:00] VITALS: BP 136/69
[2019-06-29] MEDS: SLF 3 ML SYR IV SCH (05:42)
[2019-06-29] MEDS: HYDROCORTISONE 10 MG TAB PO SCH (05:42)
[2019-06-29 06:00] VITALS: BP 135/71
[2019-06-29 06:18] LABS: HEMATOCRIT 34.4 % (42.0-52.0); HEMOGLOBIN 10.5 g/dl (13.5-17.5); MEAN CORPUSCULAR HEMOGLOBIN 28.2 pg (27.0-33.0); MEAN CORPUSCULAR HGB CONC 30.5 g/dl (32.0-36.5); MEAN CORPUSCULAR VOLUME 92.5 fl (80.0-96.0); PLATELET COUNT, AUTOMATED 305 10^3/uL (150-450); RED BLOOD COUNT 3.72 10^6/uL (4.30-6.10); WHITE BLOOD COUNT 7.6 10^3/uL (4.0-10.0)
[2019-06-29 06:38] LABS: CALCIUM LEVEL 9.3 MG/DL (8.8-10.2); CREATININE FOR GFR 1.49 MG/DL (0.70-1.30); GLOMERULAR FILTRATION RATE 49.2 (>42); POTASSIUM SERUM 3.8 MEQ/L (3.5-5.1)
[2019-06-29] MEDS: HumaLOG INSULIN (NovoLOG) PER UNIT SC SCH (07:30)
[2019-06-29] MEDS: CYANOCOBALAMIN 500 MCG TAB PO SCH (07:59)
[2019-06-29] MEDS: SUCRALFATE 1 GM TAB PO SCH (07:59)
[2019-06-29] MEDS: **NOTE PATIENT COMMENT** MISC XX SCH (08:00)
[2019-06-29] MEDS: CALCIUM/VITAMIN D 500 MG TAB PO SCH (08:00)
[2019-06-29] MEDS: PANTOPRAZOLE 40MG TAB (PROTONIX) PO SCH (08:00)
[2019-06-29] MEDS: CEFDINIR 300 MG CAP (OMNICEF) PO SCH (08:00)
[2019-06-29] MEDS ORDERED: TORSEMIDE 20 MG TAB PO SCH (09:00)
[2019-06-29] MEDS ORDERED: SPIRONOLACTONE 25 MG TAB PO SCH (09:00)
[2019-06-29] MEDS ORDERED: HYDROCORTISONE 10 MG TAB PO SCH ×2 (09:00→21:00)
--- NOTE | 2019-06-29 12:57 | IPN ---
DATE OF SERVICE: 06/29/2019 Angel is seen and examined this morning sitting out of bed to the chair. He is dressed. He is discharge pending. We discussed his discharge medications. He denies shortness of breath. Reports he has been up and ambulating and is very anxious to go home. Vital Signs: Temperature 97.4, pulse 64, respiratory rate 18, blood pressure 135/71, saturating 98% on 2 liter nasal cannula. Intake yesterday was 1450. Urine output yesterday was 950. Stool output was 300. Weight in the bed scale today is not recorded. General: The patient is seen sitting out of bed to the chair, elderly male, awake, alert, oriented, comfortable, smiling, no distress. Extraocular muscles are intact. Pupils are round and reactive to light. His mucous membranes are moist. Neck: The neck is supple. Jugular veins are not elevated while he is sitting upright. Cardiac: Irregularly, irregular. S1, S2. Absolutely no edema in the peripheries nor in the dependent areas. Lungs: Show his typical scattered fine crackles and diminished air movement but he is comfortable on 2 liters nasal cannula. No tachypnea. No accessory muscle use. Abdomen is soft and nontender. There are positive bowel sounds. Extremities are negative for edema. Skin: Normal temperature and turgor. LABS: White count 7.6, hemoglobin 10.5, platelet 305. Sodium 139, potassium 3.8, BUN 45, creatinine 1.4. INPATIENT MEDICATIONS: Reviewed by myself. Noted his cefdinir was made 300 mg twice daily. His hydrocortisone was adjusted to 30 mg in the morning, 20 mg in the evening. He continues on Protonix twice daily, and he received a dose of torsemide and spironolactone this morning. The remainder of medications are unchanged as compared to previous days. PROBLEMS: 1. Acute kidney injury on chronic kidney disease (CKD) stage III. It was secondary to severe hypotension/over diuresis/possible gastrointestinal (GI) bleed/adrenal insufficiency. He was treated with IV steroids, IV fluids, pressor support, and blood. Renal function has improved back to baseline. Urine output remains adequate. He is resumed on diuretics today, but it is lower than his previous home dose, presently torsemide 20 mg twice daily and spironolactone 25 mg once daily, and we are keeping him off of Entresto. 2. History of diastolic congestive heart failure. Most recent echocardiogram shows preserved left ventricular ejection fraction. 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 At home, he takes combination torsemide, spironolactone and Entresto. I have asked him to stay off of Entresto in view of his blood pressures and his recent acute kidney injury, and we have lowered his home dose of torsemide and spironolactone now. 3. Hypertension/hypotension. The patient's blood pressures have improved nicely with IV steroids, IV fluids, blood products, and that treatment of his urinary tract infection. He is completing a course of oral antibiotics. He is now on oral hydrocortisone the dose of which is higher than his normal home dose. Okay to resume torsemide and spironolactone. 4. Hypovolemic hyponatremia. It was secondary to combination over diuresis and adrenal insufficiency and it has improved with management as previously discussed. 5. Chronic steroid dependence. The patient is on hydrocortisone for combination lung and kidney problems related to lupus. He usually takes hydrocortisone 20/10. He is presently being discharged on hydrocortisone 30/20, and this will be reduced in the outpatient setting. 6. Interstitial lung disease likely related to lupus with chronic hypoxemic respiratory failure presently requiring less oxygen than his usual home prescription. Diuretic was accordingly reduced given his recent acute kidney injury/over diuresis. DISPOSITION: The patient is being discharged today. His medication changes were reviewed with him. He is discontinued off of Entresto. Torsemide was resumed at a lower dose of 20 mg twice daily. Spironolactone was resumed at 25 mg once daily. Hydrocortisone was resumed at 30 mg in the morning and 20 mg in the evening with further tapering to be done in the outpatient setting. He will followup in the nephrology office within 1 week.
--- NOTE | 2019-06-29 19:10 | DS.PDOC ---
Discharge Summary General Date of Admission Jun 25, 2019 at 15:11 Date of Discharge 06/29/19 Attending Physician: DAVION LAGUNAS MD Specialist/Consultants Involve: DAVID ECHEVERRIA DO Discharge Summary PROCEDURES PERFORMED DURING STAY: Right Internal Jugular Central Venous Catheter Placement ADMITTING DIAGNOSES: 1. Hypovolemic Shock likely 2/2 acute GI bleed 2. Adrenal Insufficiency 2/2 hypotension/hypovolemia 3. Hyponatremia 2/2 adrenal insufficiency DISCHARGE DIAGNOSES: 1. Hypovolemic Shock likely 2/2 acute GI bleed 2. Adrenal Insufficiency 2/2 hypotension/hypovolemia 3. Hyponatremia 2/2 adrenal insufficiency 4. Urinary Tract Infection COMPLICATIONS/CHIEF COMPLAINT: Acute Renal Failure Dehydration Hypotension. HISTORY OF PRESENT ILLNESS: Patient is a 73 year old male with multiple comorbid conditions who presented to the [facility] ER with complaint of dizziness and fall. The patient stated that he had gone to the bathroom and when he got up to get off of the toilet he felt lightheaded and fell. He stated "my legs gave out from under me". He denies hitting his head. He denied any loss of consciousness. The patient was helped into his wheel chair by his grand-daugther. He denied any feelings of his heart racing or palpitations. The patient states that for the last 7-10 days he has felt more and more weak. He did admit to a decrease in oral intake. He denied any nausea or vomiting. He denied any diarrhea. He denied any bloody stools however did admit to dark stools which have become more dark recently. In the ER, the patient was hypotensive with a BP of 54/34, pulse 81, and pulse oximetry of 95% on 4L NC. He had a only mild elevation in WBC. He was hyponatremic with a sodium of 128. He had an elevated creatinine of 5.22 and a GFR of 11.6. He was given 2L IV fluid bolus with appropriate response in blood pressure although remained on the soft side. The patient received imaging of his Lumbar spine, thoracic spine, cervical spine, head and chest all of which were negative for acute disease. He received Ct imaging of the abdomen and pelvis which demonstrated a possible ileus but otherwise negative for any acute findings. Hospitalist service was consulted for further evaluation and management of the patient. He was given a third bolus of IV fluids. He was then given 100mg IV hydrocortisone. The patient was admitted to ICU On admission the patient remained hypotensive despite receiving 3L boluses of normal saline. Given the patients history of congestive heart failure decision was made to have a central venous catheter placed. The patient remained with a mean arterial pressure < 65 and Levophed was started with titration for MAP of > 65. Additionally, given the patients adrenal suppression he was continued on IV hydrocortisone. He was placed on empiric antibiotics although no discernible source of infection was apparent. The patient was afebrile without a leukocytosis. A procalcitonin was elevated. The patient denied any urinary symptoms at the time. The patient was continued on pressors for ~12 hours. The following day he appeared to be clinically better. He was transferred to the med/surg unit. The patient was seen by Nephrology with recommendations to continue to hold the patients diuretics. Over the course of the patients hospital stay he improved in strength. His hemoglobin had remained stable and there were no signs of bleeding. On discharge the patient was started on a oral Hydrocortisone taper. His diuretics were changed and his entresto was discontinued. The patient was placed back on Eliquis for his Atrial fibrillation. His aspirin was discontinued. Patient was instructed to follow-up with his PCP in 7-10 days and Nephrology for management of his diuretics DISCHARGE MEDICATIONS: Please see below. ALLERGIES: Please see below. PHYSICAL EXAMINATION ON DISCHARGE: VITAL SIGNS: Please see below. GENERAL Awake, alert, and oriented. Sitting in chair comfortably. Appear in no acute distress. HEENT: Atraumatic, normocephalic. Eyes are nonicteric. trachea is midline. No palpable cervical, axillary, or supraclavicular lymphadenopathy CARDIOVASCULAR: Irregularly irregular rhythm. Normal rate. No clicks, rubs, or murmurs RESPIRATORY: Clear vesicular breath sounds bilaterally with fine crackles in the bases bilaterally. No wheezes, rhonchi, or rales ABDOMINAL: Soft, nondistended. nontender. No rebound tenderness or guarding. Normoactive bowel sounds throughout EXTREMITIES: No edema. 2+ posterior tibial pulses and radial pulses bilaterally NEUROLOGICAL: No focal neurological deficits PSYCHOLOGICAL: Mood and affect appear appropriate LABORATORY DATA: Please see below. IMAGING: CT THORACIC SPINE WITHOUT CONTRAST: HISTORY: Trauma. FINDINGS: Thoracic vertebral body heights are preserved. No fracture or collapse is seen. There is diffuse degenerative disc disease. A minimal curvature is present levoconvex in the mid and lower thoracic spine. Pedicles and posterior elements are intact. No paravertebral hematoma is appreciated. IMPRESSION: Degenerative spondylosis changes. No traumatic abnormality noted. Electronically Signed by Mustapha Brown MD 06/25/2019 04:14 P HISTORY: Trauma. FINDINGS: Lumbar vertebral body heights are preserved. No fracture or collapse is seen. There are advanced degenerative spondylosis changes with degenerative disc disease most pronounced at L2-3 and L3-4 where there are vacuum phenomenon in the collapsed discs and reactive sclerosis. There is moderate central canal stenosis visible at L1-2, L2-3, and L3-4 due to developmentally short pedicles, diffuse disc bulging and posterior osteophytic ridging, and some facet hypertrophy at these levels. There is right-sided neural foraminal narrowing at the L3-4 due to discogenic spurring and facet hypertrophy. No fracture or collapse is seen. IMPRESSION: No traumatic abnormality noted. Advanced degenerative spondylosis and multilevel combined developmental and degenerative central canal stenosis. There is a dextroconvex scoliotic curve as well. Electronically Signed by Mustapha Brown MD 06/25/2019 04:[address] BRAIN WITHOUT CONTRAST: HISTORY: Trauma. Comparison brain CT study is from May 09, 2018. FINDINGS: Digital preliminary doctor of osteopathy radiograph shows that the patient is edentulous. He is status post cervical spine fusion plating. The bony calvarium is intact. There is heavy vascular calcification in the distal vertebral and distal carotid arteries as before. Visualized paranasal sinuses are clear. No intraorbital abnormality is appreciated. On soft tissue window settings, there is mild diffuse atrophy. There is no evidence of intracranial hemorrhage. No acute infarction is seen. No extra-axial fluid collection, mass, or midline shift is seen. IMPRESSION: Vascular calcification and mild diffuse atrophy. No acute intracranial abnormality. No skull fracture or intracranial injury seen. Electronically Signed by Mustapha Brown MD 06/25/2019 04:[address] CHEST WITHOUT CONTRAST: HISTORY: Trauma. Comparison is made with chest x-ray from May 08, 2019. Comparison CT study of the chest November 10, 2018. CT FINDINGS: There are advanced COPD changes with subpleural fibrosis in the bases bilaterally and in the upper lobes bilaterally unchanged from the November 10, 2018 prior study. There is no evidence of new infiltrate or contusion. No pneumothorax or hydrothorax is seen. Mediastinum is not widened. Vascular calcification is seen in the thoracic aorta. There is a small amount of pericardial thickening which is slightly more pronounced than on the November 10, 2018 study. Vascular calcification is noted. No mediastinal mass or adenopathy is observed. No rib or other skeletal fracture is appreciated. No sternal fracture is seen. Thoracic vertebral body heights are preserved. IMPRESSION: Evidence of COPD pulmonary fibrosis. This is unchanged. There is slight pericardial thickening. This is a little more prominent than on the November 10, 2018 study. No other acute abnormality. Electronically Signed by Mustapha Brown MD 06/25/2019 04:[address] STUDY OF THE CERVICAL SPINE WITHOUT CONTRAST: HISTORY: Trauma. No comparison study. TECHNIQUE: Helical scanning is acquired and overlapping 2 mm high resolution axial images were generated and reviewed at bone and soft tissue window settings. Coronal and sagittal multiplanar re-formations images are generated. CT FINDINGS: There is no evidence of cervical spine element fracture. No skull base fracture is seen. Cervical vertebral body heights are preserved. The patient is status post ventral discectomy and fusion plating across the C3-4 level. The C3-4 disc is fused. There is a chronic 5 mm anterolisthesis of C3 on C4 at the fused level. This is not felt to be acutely traumatic. There is degenerative disc disease at C4-C5 with anterior and posterior spurring and some sclerosis. Discogenic spurring is seen at C5-6 anteriorly as well. There is osteoarthritic facet disease at C2-3 on the left and right and at C4-5 on the right. The C3-4 facet joints are also ankylosed. There is no evidence of intraspinal or kenny spinal hematoma. There is a ground-glass opacity pattern in the upper lobes of the lungs bilaterally. IMPRESSION: No acute traumatic abnormality. Status post C3-4 fusion with 5 mm C3-4 spondylolisthesis at the fused level. Degenerative spondylosis changes. Electronically Signed by Mustapha Brown MD 06/25/2019 04:[address] ABDOMEN AND PELVIS WITHOUT IV OR ORAL CONTRAST: HISTORY: Trauma. FINDINGS: Preliminary digital doctor of osteopathy radiograph demonstrates gaseous distension of large and small bowel loops in the abdomen. The patient's hands are in the field of view inducing some spray artifact. There is no evidence of free intraperitoneal air or hemoperitoneum. The liver and the spleen are normal in size and appear intact. No adrenal lesion is seen. There is an accessory splenule in the left upper quadrant adjacent to the tail of the pancreas. No pancreatic abnormalities observed. The gallbladder is unremarkable. No adrenal lesion is seen. There are a few punctate calcifications within the pancreas. No other pancreatic abnormality. There is no evidence of renal hematoma, mass, or hydronephrosis. There is some vascular calcification. Scoliosis is seen in the lumbar spine. No retroperitoneal mass or adenopathy is observed. There is pancolonic diverticulosis. Urinary bladder is unremarkable. Prostate and seminal vesicles appear intact. Bone window settings show degenerative spondylosis changes and scoliosis. No fracture or collapse is seen. There are advanced degenerative disc changes at L2-3. IMPRESSION: Pancolonic diverticulosis. Mild ileus pattern in the bowel gas. No traumatic abnormality noted. Electronically Signed by Mustapha Bronw MD 06/25/2019 04:14 P URINARY TRACT SONOGRAPHY: HISTORY: Acute kidney insufficiency combined with chronic renal insufficiency. Comparison study is from June 25, 2019 CT study. SONOGRAPHIC FINDINGS: Scanning at the level urinary bladder shows smooth bladder cobb. Normal appearing prostate. Emptying ureteral jets were not observed. Renal cortical echogenicity pattern is normal bilaterally. Renal contours are smooth. No hydronephrosis is seen on either side. Right kidney measures 13.9 x 6.7 x 5.4 cm. Left renal dimensions are 11.5 x 5.3 x 6.4 cm. IMPRESSION: No evidence of hydronephrosis. No morphologic abnormality. Electronically Signed by Mustapha Brown MD 06/26/2019 09:11 A Portable chest x-ray: Single view. History: Line placement. Comparison chest x-ray May 08, 2019. Findings: Moderate cardiac enlargement is observed. Pulmonary vascular congestion is seen with mild diffuse interstitial edema. No pleural effusion. A right internal jugular central venous line has been inserted with its tip in the expected location of the superior vena cava. There is no evidence of pneumothorax. Electronically Signed by Mustapha Brown MD 06/26/2019 08:41 A PROGNOSIS: Fait ACTIVITY: [As tolerated]. DIET: 2 g sodium DISCHARGE PLAN: Patient is to be discharged home with follow-up with PCP in 7-10 days for hospital follow-up and consideration for referral to GI for colonoscopy for possible GI bleed. He is to follow-up with Nephrology. He is to take Lasix 20mg BID. He is to continue spironolactone 25 mg. He is to STOP Entresto. He is to continue hydrocortisone. He is to take 30 hydrocortisone in the AM and 20 hydrocortisone in the PM. He is to stop his aspirin. He is to continue Eliquis DISPOSITION: 01 Home, Self-Care. DISCHARGE CONDITION: [Stable]. TIME SPENT ON DISCHARGE: Greater than 40 minutes. ATTENDING PHYSICIAN NOTE: I have independently interviewed and examined the patient at the bedside, and agree with the physical findings and management plan as documented above by my Resident physician. Vital Signs/I&Os Vital Signs Date Time Temp Pulse Resp B/P (MAP) Pulse Ox O2 Delivery O2 Flow Rate FiO2 06/29/19 09:00 2.0 06/29/19 06:00 97.4 64 18 135/71 (92) 98 Room Air I&O- Last 24 Hours up to 6 AM 06/29/19 06:00 Intake Total 1450 ml Output Total 1025 ml Balance 425 ml Laboratory Data Labs 24H Laboratory Tests 2 06/28/19 20:14: Bedside Glucose (Misc Panel) 149H 06/29/19 05:16: Nucleated Red Blood Cells % (auto) 0.0, Anion Gap 9, Glomerular Filtration Rate 49.2, Calcium Level 9.3 06/29/19 11:29: Bedside Glucose (Misc Panel) 118H CBC/BMP Laboratory Tests 06/29/19 05:16 FSBS Laboratory Tests Test 06/28/19 20:14 06/29/19 11:29 Range/Units Bedside Glucose (Misc Panel) 149 118 83-110 MG/DL Microbiology Microbiology 06/26/19 Stool Occult Blood (DANNY) - Final, Complete 06/26/19 Urine Culture - Final, Complete Pseudomonas Aeruginosa 06/25/19 Blood Culture - Preliminary, Resulted No Growth after 72 hours. All specime... 06/25/19 Blood Culture - Preliminary, Resulted No Growth after 72 hours. All specime... Discharge Medications Scheduled Acarbose (Acarbose) 25 Mg Tab, 25 MG PO ACB, (Reported) Apixaban (Eliquis) 5 Mg Tablet, 5 MG PO BID, (Reported) Atorvastatin Calcium (Atorvastatin Calcium) 40 Mg Tablet, 20 MG PO QHS, (Reported) Calcium Carbonate/Vitamin D3 (Calcium 600-Vit D3 400 Tablet) 1 Each Tablet, 1 TAB PO BID, (Reported) Cefdinir (Cefdinir) 300 Mg Capsule, 300 MG PO BID Cholecalciferol (Vitamin D3) (Vitamin D3) 1,000 Unit Tablet, 1 TAB PO DAILY, (Reported) Cyanocobalamin (Vitamin B-12) (Vitamin B-12) 1,000 Mcg Tab, 1,000 MCG PO DAILY, (Reported) Epoetin Carson (Procrit) 20,000 Unit/Ml Inj, 20,000 UNIT SC Q2WK, (Reported) Ergocalciferol (Vitamin D2) (Vitamin D2) 50,000 Units Cap, 50,000 UNITS PO QWEEK, (Reported) WEDNESDAYS Famotidine (Famotidine) 20 Mg Tablet, 20 MG PO BID, (Reported) Febuxostat (Uloric) 80 Mg Tab, 80 MG PO DAILY, (Reported) Ferrous Gluconate (Ferrous Gluconate) 324 Mg Tab, 324 MG PO BIDWM, (Reported) Fluoxetine Hcl (Fluoxetine HCl) 20 Mg Cap, 80 MG PO DAILY, (Reported) TAKES AT 1200 Gabapentin (Gabapentin) 600 Mg Tablet, 600 MG PO TID, (Reported) Hydrocortisone (Hydrocortisone) 20 Mg Tablet, 30 MG PO QAM Hydrocortisone (Hydrocortisone) 20 Mg Tablet, 20 MG PO QPM L.acidoph/L.bulg/B.bif/S.therm (Bacid Caplet) 1 Tab Tab, 1 TAB PO DAILY, (Reported) Magnesium Chloride (Slow-Mag) 1 Tab Tab, 1 TAB PO DAILY, (Reported) TAKES AT 1200 Metoprolol Succinate (Metoprolol Succinate) 50 Mg Tab.er.24h, 25 MG PO DAILY, (Reported) Multivitamins (Thera M Plus Tablet) 1 Tab Tab, 1 TAB PO DAILY, (Reported) Omeprazole (Omeprazole) 20 Mg Tablet.dr, 40 MG PO BID, (Reported) Oxybutynin Chloride (Oxybutynin Chloride ER) 15 Mg Tab, 15 MG PO DAILY, (Reported) Spironolactone (Spironolactone) 25 Mg Tablet, 25 MG PO DAILY, (Reported) Tamsulosin HCl (Flomax) 0.4 Mg Cap, 0.4 MG PO QPM, (Reported) Torsemide (Torsemide) 20 Mg Tablet, 20 MG PO BID@09,17 Scheduled PRN Albuterol Sulf (Albuterol Sulfate) 2.5 Mg/3 Ml Nebu, 2.5 MG INH Q4H PRN for SHORTNESS OF BREATH, (Reported) Albuterol Sulfate (Proair Hfa) 108 Mcg/Act Aer, 1 PUFF INH Q4H PRN for SHORTNESS OF BREATH, (Reported) Ammonium Lactate (Ammonium Lactate) 12% Cream..g., 1 DOSE TOP DAILY PRN for DRY SKIN, (Reported) Dextran/Hypromellose (Genteal Tears 0.1%-0.3% Drop) 15 Ml Drops, 1 DROP OU QID PRN for DRY EYES, (Reported) Hydrocodone/Acetaminophen (Hydrocodone-Acetamin 10-325 mg) 1 Tab Tab, 2 TAB PO TID PRN for PAIN, (Reported) Miconazole Nitrate (Miconazole Nitrate) 30 Gm Cream..g., 1 APLCT TOP BID PRN for fungal infection, (Reported) Nitroglycerin (Nitrostat) 0.4 Mg Subl, 0.4 MG SL NITRO PRN for CHEST PAIN, (Reported) Nystatin (Nystatin) 15 Gm Cream..g., 1 APLCT TOP BID PRN for fungal infection, (Reported) Zolpidem Tartrate (Zolpidem Tartrate) 5 Mg Tablet, 5 MG PO QHS PRN for SLEEP, (Reported) Allergies Coded Allergies: allopurinol (Verified Allergy, Mild, itching, 06/25/19) ROBBIE HERNANDEZ DO Jun 29, 2019 19:10 DAVION LAGUNAS MD Jun 30, 2019 07:59
== END 2019-06-29 12:01 | disposition home health service (06) | DRG 643 ==
LOC: M ED 12:20 → EDBD 12:20 → M ED INP 15:11 → ENRESERV 16:35 → M ICU 17:10 → M PCU 06-27 14:24 → M MSPAV 06-28 01:53
PROVIDERS: ADMIT Internal Medicine; ATTEND General Practice
PROC: 05HM33Z Insertion of Infusion Device into Right Internal Jugular Vein, Percutaneous Approach (ICD-10-PCS; principal; 2019-06-25)
PROC: 30233N1 Transfusion of Nonautologous Red Blood Cells into Peripheral Vein, Percutaneous Approach (ICD-10-PCS; 2019-06-25)
DX: E27.40 Unspecified adrenocortical insufficiency (principal); R57.1 Hypovolemic shock; G93.41 Metabolic encephalopathy; D62 Acute posthemorrhagic anemia; K92.2 Gastrointestinal hemorrhage, unspecified; N17.9 Acute kidney failure, unspecified; E87.1 Hypo-osmolality and hyponatremia; N39.0 Urinary tract infection, site not specified; I48.20 Chronic atrial fibrillation, unspecified; N18.4 Chronic kidney disease, stage 4 (severe); J96.11 Chronic respiratory failure with hypoxia; I50.32 Chronic diastolic (congestive) heart failure; F11.20 Opioid dependence, uncomplicated; I95.9 Hypotension, unspecified; J44.9 Chronic obstructive pulmonary disease, unspecified; J84.10 Pulmonary fibrosis, unspecified; Z79.899 Other long term (current) drug therapy; Z88.8 Allergy status to other drugs, medicaments and biological substances; I25.10 Atherosclerotic heart disease of native coronary artery without angina pectoris; K21.9 Gastro-esophageal reflux disease without esophagitis; E11.9 Type 2 diabetes mellitus without complications; K22.70 Barrett's esophagus without dysplasia; M32.14 Glomerular disease in systemic lupus erythematosus; Z87.891 Personal history of nicotine dependence; M10.9 Gout, unspecified; I27.20 Pulmonary hypertension, unspecified; E55.9 Vitamin D deficiency, unspecified; E53.8 Deficiency of other specified B group vitamins; N40.0 Benign prostatic hyperplasia without lower urinary tract symptoms; Z79.01 Long term (current) use of anticoagulants; Z79.82 Long term (current) use of aspirin

== ENCOUNTER 2020-04-08 17:49 | Inpatient (IN) | payer OTHER ==
[~2020-04-08] VITALS: Ht 180.3 cm; Wt 109.0 kg
[~2020-04-08 17:49] MED LIST changes: -AMLO10TA5 PO; +AMLO1TAB25 PO; -ARTIDRO2 OU; +ASPI-546 PO; -ASPI1TAB15 PO; +CALC-234 PO; -CALC1TAB82 PO; +FAMO1TAB11 PO; -FLUO20CA19 PO; +FLUO20CA22 PO; +GENT1SOL16 OU; +HYDR-4468 PO; -HYDR-4513 PO; +HYDR20TA2 PO; +MICO2CRE45 TOP; +NYST10CR TOP; -OMEP-172 PO; +OMEP1CAP73 PO; +OXYB15TA14 PO; -OXYB1TAB13 PO; +POLYOPD OU; +VITA100066 PO
[2020-04-08] MEDS ORDERED: ACETAMINOPHEN TAB 650MG DOSE (2X325MG) PO ONE (18:15)
[2020-04-08 18:23] LABS: BASO % 0.2 % (0.0-1.0); HEMATOCRIT 32.3 % (42.0-52.0); LYMPH # 0.2 10^3/uL (1.5-5.0); LYMPH % 1.8 % (24.0-44.0); MEAN CORPUSCULAR HEMOGLOBIN 28.1 pg (27.0-33.0); MEAN CORPUSCULAR VOLUME 90.7 fl (80.0-96.0); MONO # 0.4 10^3/uL (0.0-0.8); MONO % 3.8 % (0.0-5.0); NEUTROPHILS # 10.5 10^3/uL (1.5-8.5); NEUTROPHILS % 93.7 % (36.0-66.0); PLATELET COUNT, AUTOMATED 222 10^3/uL (150-450); RED BLOOD COUNT 3.56 10^6/uL (4.30-6.10); WHITE BLOOD COUNT 11.2 10^3/uL (4.0-10.0)
[2020-04-08] MEDS ORDERED: MORPHINE 2 MG/ML 1ML VIAL (J2270) IV ONE (18:30)
[2020-04-08 18:39] LABS: INR 3.79; PROTHROMBIN TIME 38.3 SECONDS (12.5-14.3)
[2020-04-08 18:40] LABS: PARTIAL THROMBOPLASTIN TIME 55.6 SECONDS (24.2-38.5)
[2020-04-08 18:53] LABS: ALBUMIN 2.7 GM/DL (3.2-5.2); ALT/SGPT 114 U/L (12-78); BILIRUBIN,DIRECT 3.1 MG/DL (0.0-0.2); BILIRUBIN,TOTAL 3.8 MG/DL (0.2-1.0); BLOOD UREA NITROGEN 26 MG/DL (7-18); CALCIUM LEVEL 8.6 MG/DL (8.8-10.2); CARBON DIOXIDE LEVEL 24 MEQ/L (21-32); CHLORIDE LEVEL 107 MEQ/L (98-107); CK-MB VALUE MASS < 1.0 NG/ML (<3.6); CPK CREATINE PHOSPHOKINASE 109 U/L (39-308); CREATININE FOR GFR 1.56 MG/DL (0.70-1.30); FREE T4 1.59 NG/DL (0.76-1.46); GLOMERULAR FILTRATION RATE 46.5 (>42); GLUCOSE, FASTING 139 MG/DL (70-100); LIPASE 21 U/L (73-393); MB/CK RELATIVE INDEX 0.92 (< OR =4); POTASSIUM SERUM 4.7 MEQ/L (3.5-5.1); SODIUM LEVEL 139 MEQ/L (136-145); TOTAL PROTEIN 6.1 GM/DL (6.4-8.2); TROPONIN I 0.02 NG/ML (< 0.10)
[2020-04-08] MEDS ORDERED: LORazepam 2 MG/ML VIAL IV STA ×2 (18:58→19:22)
[2020-04-08] MEDS ORDERED: LORazepam 2 MG/ML VIAL As Ordered ONE (19:00)
[2020-04-08] MEDS ORDERED: ISOVUE-370 76% 100ML VIAL As Ordered ONE (19:10)
--- NOTE | 2020-04-08 20:43 | REPVR ---
PROCEDURE INFORMATION: Exam: CT Head Without Contrast Exam date and time: 04/08/2020 8:21 PM Age: 74 years old Clinical indication: Altered mental status/memory loss TECHNIQUE: Imaging protocol: Computed tomography of the head without contrast. Radiation optimization: All CT scans at this facility use at least one of these dose optimization techniques: automated exposure control; mA and/or kV adjustment per patient size (includes targeted exams where dose is matched to clinical indication); or iterative reconstruction. COMPARISON: CT Head without contrast 06/25/2019 1:28 PM FINDINGS: Brain: There are global involutional changes of the brain which are in keeping with the patient's age. There is no evidence of intracranial hemorrhage. No abnormal extra-axial fluid collections are identified. Periventricular hypodensities are nonspecific but most likely reflect chronic microvascular ischemic disease. Cerebral ventricles: No ventriculomegaly. Bones/joints: Unremarkable. No acute fracture. Paranasal sinuses: The visualized sinuses are unremarkable. Mastoid air cells: There is no mastoid effusion detected. Vasculature: Atherosclerotic vascular disease is noted at the level of the skull base. Soft tissues: Unremarkable. Other findings: Motion artifact significantly degrades anatomic detail on this study. IMPRESSION: No acute intracranial pathology demonstrated by CT. Electronically signed by: Savanna Wall On 04/08/2020 20:43:47 PM
--- NOTE | 2020-04-08 20:44 | REPVR ---
PROCEDURE INFORMATION: Exam: CT Angiography Chest With Contrast Exam date and time: 04/08/2020 8:21 PM Age: 74 years old Clinical indication: Fever TECHNIQUE: Imaging protocol: Computed tomographic angiography of the chest with intravenous contrast. 3D rendering (Not supervised by radiologist): MIP and/or 3D reconstructed images were created by the technologist. Radiation optimization: All CT scans at this facility use at least one of these dose optimization techniques: automated exposure control; mA and/or kV adjustment per patient size (includes targeted exams where dose is matched to clinical indication); or iterative reconstruction. Contrast material: ISOVUE 370; Contrast volume: 100 ml; Contrast route: INTRAVENOUS (IV); COMPARISON: CT ANGIO CHEST 01/28/2018 1:47 PM FINDINGS: Pulmonary arteries: Motion artifact severely limits evaluation of the small pulmonary arteries. No large central pulmonary emboli demonstrated. Aorta: There is no aortic dissection or aneurysm. There is mild atherosclerosis in the thoracic aorta. Lungs: Increased interstitial markings demonstrated peripherally bilaterally consistent with interstitial lung disease. Calcified granuloma left lung base. Pleural space: Unremarkable. No pneumothorax. No pleural effusion. Heart: Cardiomegaly. There is mild atherosclerotic calcification of the coronary arteries. Lymph nodes: Unremarkable. No enlarged lymph nodes. Bones/joints: Osteoporosis. The spine demonstrates moderate degenerative changes. Soft tissues: Unremarkable. IMPRESSION: 1. Increased interstitial markings demonstrated peripherally bilaterally consistent with interstitial lung disease. No segmental or lobar infiltrates. 2. There is no aortic dissection or aneurysm. 3. Motion artifact severely limits evaluation of the small pulmonary arteries. No large central pulmonary emboli demonstrated. Electronically signed by: Nj Dorado On 04/08/2020 20:44:45 PM
--- NOTE | 2020-04-08 20:51 | REPVR ---
PROCEDURE INFORMATION: Exam: CT Abdomen And Pelvis With Contrast Exam date and time: 04/08/2020 8:21 PM Age: 74 years old Clinical indication: Abdominal pain; Additional info: Fever abd pain TECHNIQUE: Imaging protocol: Computed tomography of the abdomen and pelvis with intravenous contrast. Radiation optimization: All CT scans at this facility use at least one of these dose optimization techniques: automated exposure control; mA and/or kV adjustment per patient size (includes targeted exams where dose is matched to clinical indication); or iterative reconstruction. Contrast material: ISOVUE 370; Contrast volume: 100 ml; Contrast route: INTRAVENOUS (IV); COMPARISON: CT ABD PELVIS W/O CONTRAST 06/25/2019 1:31 PM FINDINGS: Liver: Normal. No mass. Gallbladder and bile ducts: Hydropic gallbladder. No gallbladder wall thickening or visible calculi demonstrated. Pancreas: Normal. No ductal dilation. Spleen: There is mild splenomegaly with a maximum span of 13.6 centimeters. No focal abnormalities demonstrated. Adrenals: Normal. No mass. Kidneys and ureters: Normal. No hydronephrosis. Stomach and bowel: Thickened wall of the rectum. Clinical correlation to exclude neoplasm suggested. Appendix: No evidence of appendicitis. Intraperitoneal space: Unremarkable. No free air. No significant fluid collection. Vasculature: The aortoiliac vessels demonstrate mild atherosclerotic calcification. Ectatic abdominal aorta. Lymph nodes: Unremarkable. No enlarged lymph nodes. Urinary bladder: Stephens catheter within a collapsed urinary bladder. Reproductive: Unremarkable as visualized. Bones/joints: Osteoporosis.The spine demonstrates moderate degenerative changes. Severe central spinal stenosis at L1-L2, L2-L3, L3-L4 and L4-L5. S shaped scoliosis lumbar spine. Soft tissues: Unremarkable. IMPRESSION: 1. Hydropic gallbladder. No gallbladder wall thickening or visible calculi demonstrated. 2. Thickened wall of the rectum. Clinical correlation to exclude neoplasm suggested. 3. There is mild splenomegaly with a maximum span of 13.6 centimeters. No focal abnormalities demonstrated. Electronically signed by: Nj Dorado On 04/08/2020 20:50:46 PM
[2020-04-08] MEDS ORDERED: NS 1,000 ML IV SCH (21:14)
[2020-04-08] MEDS ORDERED: PANTOPRAZOLE 40MG VIAL (C9113 PER 1) IV ONE (21:30)
[2020-04-08] MEDS ORDERED: BUSP10TA PO ×2 (21:47)
[2020-04-08] MEDS ORDERED: HYDR20TA2 PO ×2 (21:47)
[2020-04-08] MEDS ORDERED: TORS20TA2 PO (21:47)
[2020-04-08] MEDS ORDERED: D31000TA2 PO (21:47)
[2020-04-08] MEDS ORDERED: ACET1TAB55 PO (21:47)
[2020-04-08] MEDS ORDERED: HYDR-4514 PO (21:47)
[2020-04-08] MEDS ORDERED: med rec comment (21:48)
[2020-04-08] MEDS ORDERED: PIPERACILLIN/TAZOBACTAM SOD 4.5 GM in D5W MINI-BAG PLUS 50 ML IV ONE (22:00)
[2020-04-08] MEDS ORDERED: NITROGLYCERIN 0.4 MG SUBL TABLET SL PRN (22:15)
[2020-04-08] MEDS: HEPARIN SOD (PORCINE) 5000UNITS/ML 1ML VIAL/SYRINGE SC SCH (22:26)
--- NOTE | 2020-04-08 22:30 | REPVR ---
PROCEDURE INFORMATION: Exam: US Abdomen, Limited; Right Upper Quadrant Exam date and time: 04/08/2020 10:10 PM Age: 74 years old Clinical indication: Abnormal findings; Abnormal lab test; Elevated liver enzymes; Additional info: Fever, elevated lfts eval for cholecystitis TECHNIQUE: Imaging protocol: US abdomen. Real time ultrasound with image documentation. Limited exam focused on the right upper quadrant. COMPARISON: RENAL US 06/25/2019 4:29 PM FINDINGS: Liver: Normal. No masses. Gallbladder: Hydropic gallbladder. Sludge within the lumen of the gallbladder. No calculi demonstrated. Common bile duct: The common bile duct is dilated and measures 1.5 cm. No mass or choledocholithiasis. Distal common bile duct obscured by overlying bowel gas. Pancreas: Visualized pancreas is unremarkable. Right kidney: Right kidney measures 12.4 x 6.3 x 5.6 cm. IMPRESSION: 1. Hydropic gallbladder. Sludge within the lumen of the gallbladder. No calculi demonstrated. 2. The common bile duct is dilated and measures 1.5 cm. No mass or choledocholithiasis. Distal common bile duct obscured by overlying bowel gas. Electronically signed by: Nj Dorado On 04/08/2020 22:30:05 PM
--- NOTE | 2020-04-08 22:39 | HPEPDOC ---
General Date of Admission 04/08/20 Date of Service: Apr 08, 2020 Chief Complaint The patient is a 74-year-old male admitted with a reason for visit of Abd Pain. Source: Family Exam Limitations: Clinical conditions Timing/Duration: 24 hours, Getting worse Severity: Severe History of Present Illness The patient is a 73-year-old male with history of congestive heart failure, coronary artery disease, chronic kidney disease, lupus, chronic interstitial lung disease with chronic hypoxemic respiratory failure, atrial fibrillation, diabetes, adrenal insufficiency, who presents with altered mental status and di ffuse abdominal pain. According to his granddaughter patient developed altered mental status during the day and he complained of diffuse abdominal pain. Family brought him to the ER, patient became agitated, he received lorazepam IV and became lethargic. Patient was not able to answer my questions. In ER patient was found to have white blood count of 11.2, fever of 100.3, tachycardia and dyspnea. LFT showed total bilirubin 2.8, direct bilirubin 2.1, transaminitis and alkaline phosphatase of 615. Lactic acid 3.1, creatinine 1.56. CTA negative for pulmonary emboli, CT abdomen and pelvis showed Hydropic gallbladder. No gallbladder wall thickening or visible calculi demonstrated. 2. Thickened wall of the rectum. Clinical correlation to exclude neoplasm suggested. Right upper quadrant ultrasound negative for stones. Dr. Schilling was contacted by phone and he will see patient. Home Medications Scheduled Acarbose (Acarbose) 25 Mg Tab, 25 MG PO ACP, (Reported) Apixaban (Eliquis) 5 Mg Tablet, 5 MG PO BID, (Reported) Atorvastatin Calcium (Atorvastatin Calcium) 40 Mg Tablet, 20 MG PO QHS, (Reported) Buspirone HCl (Buspirone HCl) 10 Mg Tablet, 10 MG PO QHS, (Reported) Buspirone HCl (Buspirone HCl) 10 Mg Tablet, 5 MG PO QAM, (Reported) Calcium Carbonate/Vitamin D3 (Calcium 600-Vit D3 400 Tablet) 1 Each Tablet, 1 TAB PO BID, (Reported) Cholecalciferol (Vitamin D3) (Vitamin D3) 1,000 Unit Tablet, 1,000 UNITS PO DAILY, (Reported) Cyanocobalamin (Vitamin B-12) (Vitamin B-12) 1,000 Mcg Tab, 1,000 MCG PO DAILY, (Reported) Epoetin [place] (Procrit) 20,000 Unit/Ml Inj, 20,000 UNIT SC Q2WK, (Reported) Ergocalciferol (Vitamin D2) (Vitamin D2) 50,000 Units Cap, 50,000 UNITS PO QWEEK, (Reported) WEDNESDAYS Famotidine (Famotidine) 20 Mg Tablet, 20 MG PO BID, (Reported) Febuxostat (Uloric) 80 Mg Tab, 80 MG PO DAILY, (Reported) Ferrous Gluconate (Ferrous Gluconate) 324 Mg Tab, 324 MG PO BIDWM, (Reported) Fluoxetine Hcl (Fluoxetine HCl) 20 Mg Cap, 80 MG PO DAILY, (Reported) TAKES AT 1200 Gabapentin (Gabapentin) 600 Mg Tablet, 600 MG PO BID, (Reported) Hydrocortisone (Hydrocortisone) 20 Mg Tablet, 20 MG PO QAM, (Reported) Hydrocortisone (Hydrocortisone) 20 Mg Tablet, 10 MG PO QPM, (Reported) L.acidoph/L.bulg/B.bif/S.therm (Bacid Caplet) 1 Tab Tab, 1 TAB PO DAILY, (Reported) Magnesium Chloride (Slow-Mag) 1 Tab Tab, 1 TAB PO DAILY, (Reported) TAKES AT 1200 Metoprolol Succinate (Metoprolol Succinate) 50 Mg Tab.er.24h, 25 MG PO DAILY, (Reported) Multivitamins (Thera M Plus Tablet) 1 Tab Tab, 1 TAB PO DAILY, (Reported) Omeprazole (Omeprazole) 20 Mg Tablet.dr, 40 MG PO BID, (Reported) Oxybutynin Chloride (Oxybutynin Chloride ER) 15 Mg Tab, 15 MG PO DAILY, (Reported) Spironolactone (Spironolactone) 25 Mg Tablet, 25 MG PO DAILY, (Reported) Tamsulosin HCl (Flomax) 0.4 Mg Cap, 0.4 MG PO QPM, (Reported) Torsemide (Torsemide) 20 Mg Tablet, 20 MG PO BID, (Reported) 0900 and 1700 Scheduled PRN Acetaminophen (Acetaminophen) 325 Mg Tablet, 325 MG PO Q8H PRN for PAIN, (Reported) Albuterol Sulf (Albuterol Sulfate) 2.5 Mg/3 Ml Nebu, 2.5 MG INH Q4H PRN for SHOR TNESS OF BREATH, (Reported) Albuterol Sulfate (Proair Hfa) 108 Mcg/Act Aer, 1 PUFF INH Q4H PRN for SHORTNESS OF BREATH, (Reported) Ammonium Lactate (Ammonium Lactate) 12% Cream..g., 1 DOSE TOP DAILY PRN for DRY SKIN, (Reported) Dextran/Hypromellose (Genteal Tears 0.1%-0.3% Drop) 15 Ml Drops, 1 DROP OU QID PRN for DRY EYES, (Reported) Hydrocodone/Acetaminophen (Hydrocodone-Acetamin 7.5-325) 1 Each Tablet, 1 TAB PO QID PRN for PAIN, (Reported) Nitroglycerin (Nitrostat) 0.4 Mg Subl, 0.4 MG SL NITRO PRN for CHEST PAIN, (Reported) Zolpidem Tartrate (Zolpidem Tartrate) 5 Mg Tablet, 5 MG PO QHS PRN for SLEEP, (Reported) Miscellaneous Medications [med rec comment] , (Reported) verified with [facility] Allergies Coded Allergies: allopurinol (Verified Allergy, Mild, itching, 06/25/19) Past Medical History Medical History 1. Multiple hospitalizations for CHF exacerbation 2. Coronary artery disease with remote history of coronary intervention before 2009. No recent evaluation of coronary anatomy by coronary angiography or nuclear stress testing. 3. Interstitial lung disease, believed to be related to lupus. On 4 L oxygen at home 4. Lupus membranous nephropathy 5. Chronic renal insufficiency, stage III to stage IV. 6. Chronic atrial fibrillation. 7. Type 2 diabetes. 8. Gastroesophageal reflux disease (GERD)/Marcial's esophagus. 9. BPH. 10. Post-traumatic stress disorder (PTSD). Surgical History 1. knee surgery 2. cataract surgery 3. back surgery 4. renal biopsy Family History Patient has a family history of hypertension and diabetes Social History * Smoker: former Smoker Alcohol: Denies Drugs: denies A-FIB/CHADSVASC A-FIB History Current/History of A-Fib/PAF?: Yes Current PO Anticoag Therapy: Yes Review of Systems Constitutional: Reports: Other (patient is lethargic and unable to provide information) Physical Examination General Exam: Positive: Other (lethargic) Eye Exam: Positive: PERRLA ENT Exam: Positive: Atraumatic Neck Exam: Positive: Supple, JVD Chest Exam: Positive: Diminished Heart Exam: Positive: Tachycardic, Irregular Rhythm Telemetry: Positive: Atrial fibrillation Abdomen Exam: Positive: BS Hypoactive Extremity Exam: Negative: Cyanosis Skin Exam: Negative: Rash, Breakdown Neuro Exam: Positive: Reflexes 2+ Psych Exam: Positive: Other (lethargic) Vital Signs Vital Signs Date Time Temp Pulse Resp B/P (MAP) Pulse Ox O2 Delivery O2 Flow Rate FiO2 04/08/20 20:45 100.3 20 103/57 (72) 04/08/20 20:42 106 97 Room Air 04/08/20 18:46 4.0 Laboratory Data Labs 24H Laboratory Tests 2 04/08/20 18:12: Urine Color CHERRY, Urine Appearance CLOUDYH, Urine pH 5.0, Urine Specific [place] 1.017, Urine Protein 2+H, Urine Glucose (UA) NEGATIVE, Urine Ketones NEGATIVE, Urine Blood 2+H, Urine Nitrite NEGATIVE, Urine Bilirubin 1+H, Urine Urobilinogen 2.0H, Urine Leukocyte Esterase 2+H, Urine WBC (Auto) TNTCH, Urine R BC (Auto) 22H, Urine Hyaline Casts (Auto) 0, Urine Bacteria (Auto) 3+H, Urine Squamous Epithelial Cells 3, Urine Amorphous Sediment SMALLH, Urine Mucus (Auto) SMALL, Urine Sperm (Auto) 04/08/20 18:13: Immature Granulocyte % (Auto) 0.5, Neutrophils (%) (Auto) 93.7H, Lymphocytes (%) (Auto) 1.8L, Monocytes (%) (Auto) 3.8, Eosinophils (%) (Auto) 0.0, Basophils (%) (Auto) 0.2, Neutrophils # (Auto) 10.5H, Lymphocytes # (Auto) 0.2L, Monocytes # (Auto) 0.4, Eosinophils # (Auto) 0.0, Basophils # (Auto) 0.0, Nucleated Red Blood Cells % (auto) 0.0, Prothrombin Time 38.3H, Prothromb Time International Ratio 3.79, Activated Partial Thromboplast Time 55.6H, Anion Gap 8, Glomerular F iltration Rate 46.5, Lactic Acid Level 3.1*H, Calcium Level 8.6L, Total Bilirubin 3.8H, Direct Bilirubin 3.1H, Aspartate Amino Transf (AST/SGOT) 119H, Alanine Aminotransferase (ALT/SGPT) 114H, Alkaline Phosphatase 615H, Total Creatine Kinase 109, Creatine Kinase MB < 1.0, Creatine Kinase MB Relative Index 0.92, Troponin I 0.02, Total Protein 6.1L, Albumin 2.7L, Albumin/Globulin Ratio 0.8, Lipase 21L, Thyroid Stimulating Hormone (TSH) 1.310, Free Thyroxine 1.59H CBC/BMP Laboratory Tests 04/08/20 18:13 Microbiology Microbiology 04/08/20 Blood Culture, Received Pending 04/08/20 Blood Culture, Received Pending 04/08/20 Urine Culture, Received Pending Assessment/Plan The patient is a 73-year-old male with history of congestive heart failure, coronary artery disease, chronic kidney disease, lupus, chronic interstitial lung disease with chronic hypoxemic respiratory failure, atrial fibrillation, diabetes, adrenal insufficiency, who presents with altered mental status and diffuse abdominal pain. According to his granddaughter patient developed altered mental status during the day and he complained of diffuse abdominal pain. Family brought him to the ER, patient became agitated, he received lorazepam IV and became lethargic. Patient was not able to answer my questions. In ER patient was found to have white blood count of 11.2, fever of 100.3, tachycardia and dyspnea. LFT showed total bilirubin 2.8, direct bilirubin 2.1, transaminitis and alkaline phosphatase of 615. Lactic acid 3.1, creatinine 1.56. CTA negative for pulmonary emboli, CT abdomen and pelvis showed Hydropic gallbladder. No gallbladder wall thickening or visible calculi demonstrated. 2. Thickened wall of the rectum. Clinical correlation to exclude neoplasm suggested. Right upper quadrant ultrasound negative for stones. Dr. Schilling was contacted by phone and he will see patient. Problems (1) Sepsis Status: Acute Problem Text: Most likely Secondary to acute cholangitis Patient has abdominal pain, altered mental status, fever, abnormal LFT, leukocytosis and tachycardia with dyspnea Zosyn IV Await ultrasound report, preliminary no stone Blood culture Gentle IV fluid, patient has a history of CHF Appreciate/agree with surgical consult (2) Cholangitis Status: Acute Problem Text: CT abdomen and pelvis showed Hydropic gallbladder Patient might need surgical decompression Nothing by mouth for now Eliquis on hold See above (3) Metabolic encephalopathy Status: Acute Problem Text: Secondary to sepsis (4) Adrenal insufficiency Status: Chronic Problem Text: IV hydrocortisone every 8 hours Continue to monitor blood pressure (5) Acute kidney injury superimposed on CKD Status: Acute Problem Text: Patient has chronic renal insufficiency stage IV most likely secondary to lupus Acute exacerbation most likely Secondary to intravascular depletion Continue to monitor (6) Atrial fibrillation Status: Chronic Problem Text: Eliquis on hold due to possible surgical intervention (7) UTI (urinary tract infection) Status: Acute Problem Text: UA showed pyuria Patient developed encephalopathy today IV Zosyn Await urine culture Plan / VTE VTE Prophylaxis Ordered?: Yes JEANETTE POTTER DO Apr 08, 2020 22:39
[2020-04-08] MEDS: NS 1,000 ML IV SCH (23:00)
[2020-04-08 23:45] VITALS: BP 111/82
[2020-04-09] VITALS (35 sets, daily range): BP systolic 84–153; BP diastolic 50–97
[2020-04-09] MEDS ORDERED: GLUCAGON INJ 1MG VIAL SC PRN
[2020-04-09] MEDS ORDERED: DEXTROSE 50% 50 ML SYRINGE IV PRN
[2020-04-09] MEDS ORDERED: GLUCOSE 4GM CHEW TABLET PO PRN
[2020-04-09] MEDS: busPIRone 10 MG TAB PO SCH ×2 (00:14→20:02)
[2020-04-09] MEDS: HumaLOG INSULIN (NovoLOG) PER UNIT SC SCH ×5 (00:49→23:07)
[2020-04-09] MEDS: HYDROCORTISONE 100 MG/2 ML VIAL (J1720 PER 1) IV SCH ×4 (00:49→23:25)
[2020-04-09 04:51] LABS: HEMATOCRIT 29.4 % (42.0-52.0); HEMOGLOBIN 9.6 g/dl (13.5-17.5); MEAN CORPUSCULAR HEMOGLOBIN 29.2 pg (27.0-33.0); MEAN CORPUSCULAR HGB CONC 32.7 g/dl (32.0-36.5); MEAN CORPUSCULAR VOLUME 89.4 fl (80.0-96.0); PLATELET COUNT, AUTOMATED 175 10^3/uL (150-450); RED BLOOD COUNT 3.29 10^6/uL (4.30-6.10)
[2020-04-09 05:25] LABS: ALBUMIN 2.1 GM/DL (3.2-5.2); ALT/SGPT 84 U/L (12-78); BILIRUBIN,TOTAL 2.7 MG/DL (0.2-1.0); BLOOD UREA NITROGEN 24 MG/DL (7-18); CALCIUM LEVEL 7.9 MG/DL (8.8-10.2); CARBON DIOXIDE LEVEL 22 MEQ/L (21-32); CHLORIDE LEVEL 110 MEQ/L (98-107); CREATININE FOR GFR 1.15 MG/DL (0.70-1.30); GLOMERULAR FILTRATION RATE > 60.0 (>42); GLUCOSE, FASTING 103 MG/DL (70-100); MAGNESIUM LEVEL 1.8 MG/DL (1.8-2.4); POTASSIUM SERUM 3.8 MEQ/L (3.5-5.1); SODIUM LEVEL 140 MEQ/L (136-145); TOTAL PROTEIN 5.8 GM/DL (6.4-8.2)
[2020-04-09] MEDS: PIPERACILLIN/TAZOBACTAM SOD 3.375 GM in D5W MINI-BAG PLUS 50 ML IV SCH ×3 (05:27→21:36)
[2020-04-09] MEDS: FERROUS GLUCONATE 324 MG TAB PO SCH ×2 (08:00→18:00)
[2020-04-09] MEDS ORDERED: BISACODYL 10 MG SUPP PR ONE (08:30)
--- NOTE | 2020-04-09 08:37 | ECGEPIP ---
[facility] - ED Test Date: 2020-04-08 Pat Name: ERICK SHELBY Department: Room: [place] [address] Gender: Male [employer] Supervisor: bri : 1945 Requested By: ZULMA Holden Order Number: [id number] Reading MD: Jamie Serrano Measurements Intervals [place] Rate: 96 P: [place]: 0 QRS: -25 QRSD: 114 T: 120 QT: 343 QTc: 434 Interpretive Statements ATRIAL FIBRILLATION WITH ABERRANT CONDUCTION OR VENTRICULAR PREMATURE COMPLEXES BORDERLINE LEFT AXIS DEVIATION LOW QRS VOLTAGE IN PRECORDIAL LEADS POOR R WAVE PROGRESSION POSSIBLE PRIOR INFERIOR INFARCT MODERATE INTRAVENTRICULAR CONDUCTION DELAY NONSPECIFIC ST & T-WAVE ABNORMALITY BASELINE ARTIFACT AFFECTS INTERPRETATION RATE CHANGE COMPARED TO 06/25/19 Electronically Signed on 04-09-2020 8:37:10 EDT by Jamie Serrano
[2020-04-09] MEDS: NS 1,000 ML IV SCH ×3 (08:46→23:26)
[2020-04-09] MEDS ORDERED: TORSEMIDE 20 MG TAB PO SCH (09:00)
[2020-04-09] MEDS ORDERED: METOPROLOL SUCC (TopROL XL) 50MG **XL** TAB PO SCH (09:00)
[2020-04-09] MEDS ORDERED: HYDROCORTISONE 10 MG TAB PO SCH ×2 (09:00→21:00)
[2020-04-09] MEDS ORDERED: SPIRONOLACTONE 25 MG TAB PO SCH (09:00)
[2020-04-09] MEDS: oxyBUTYnin *DITROPAN XL* 5 MG TABCR PO SCH (10:02)
[2020-04-09] MEDS: HEPARIN SOD (PORCINE) 5000UNITS/ML 1ML VIAL/SYRINGE SC SCH ×2 (10:03→20:01)
[2020-04-09] MEDS: FLUoxetine 20 MG CAP PO SCH (10:04)
[2020-04-09] MEDS: busPIRone 5 MG TAB PO SCH (10:04)
[2020-04-09] MEDS: FEBUXOSTAT 40 MG TABLET (ULORIC) PO SCH (10:04)
[2020-04-09] MEDS: OMEPRAZOLE 20 MG CAP PO SCH ×2 (10:04→20:01)
--- NOTE | 2020-04-09 11:21 | REPVR ---
PROCEDURE INFORMATION: Exam: MR Abdomen Without Contrast Exam date and time: 04/09/2020 9:31 AM Age: 74 years old Clinical indication: Condition or disease; Gallbladder condition; Other: Elevated bilirubin, R/O cbd stone TECHNIQUE: Imaging protocol: MR of the abdomen without contrast. 3D rendering (Not supervised by radiologist): MIP reconstructed images were created by the technologist. COMPARISON: CT ABD/PEL W/IV CONTRAST ONLY 04/08/2020 8:04 PM FINDINGS: Liver: Mild intrahepatic biliary ductal dilatation. Gallbladder and bile ducts: Gallbladder luminal distention is present measuring 6.5 cm. No intraluminal calculus identified. No wall thickening or intraluminal calculus identified. The extrahepatic bile ducts are dilated, measuring 9.3 mm. Distal common bile duct intraluminal filling hypointense defect measuring 3.4 x 2.6 mm (series 301, image 1, frame 6) just above the ampulla. Pancreas: Unremarkable. No ductal dilation. Spleen: Unremarkable. No splenomegaly. Adrenals: Unremarkable. No mass. Kidneys and ureters: Unremarkable. No solid mass. No hydronephrosis. Stomach and bowel: Unremarkable as visualized. Intraperitoneal space: Mild pericholecystic and perihepatic peritoneal fluid. Arteries: Infrarenal abdominal aortic aneurysm is present measuring 3.0 cm AP dimension. There is no evidence of rupture or leakage. Bones/joints: No acute abnormality identified. Soft tissues: Unremarkable. IMPRESSION: 1. Distended gallbladder. 2. Extrahepatic and mild intrahepatic biliary ductal dilatation with distal choledocholithiasis. 3. Mild pericholecystic and perihepatic peritoneal fluid. 4. Infrarenal abdominal aortic aneurysm. Electronically signed by: Yang Stahl On 04/09/2020 11:21:32 AM
[2020-04-09] MEDS: METOPROLOL TART 12.5 MG PER 1/2 TAB PO SCH ×2 (12:20→20:02)
--- NOTE | 2020-04-09 13:30 | IPNPDOC ---
Text Note Date of Service The patient was seen on 04/09/20. NOTE Patient was seen and examined this morning by me. He states that he still has a right upper quadrant abdominal pain and feels slightly nauseous. PHYSICAL EXAMINATION: General: The patient is awake, alert, oriented x3, sitting up in the bed in mild distress because of abdominal pain. Head and Neck Exam: Extraocular muscles intact. Pupils equally round and reactive to light. Mucous membranes are moist. Neck is supple. There is no jugular venous distention (JVD). Cardiovascular: S1 and S2, regular rate. Trace edema of the bilateral lower extremities. Respiratory: Mild inspiratory crackles at the right base, mildly decreased breath sounds at the left side. Abdomen: Tenderness on mild palpation in the right upper quadrant and bedtime like a Positive bowel sounds. Nontender. No organomegaly. Genitourinary: Deferred Musculoskeletal: Clubbing of the fingernails, no cyanosis was noted. Central Nervous System (SUPERVISOR GRAPHITE): No focal deficit. Power is 5/5 in all e xtremities. Assessment and plan The patient is a 73-year-old male with history of possibly diastolic congestive heart failure, lupus with chronic interstitial lung disease on home oxygen, atrial fibrillation rate controlled and on Eliquis, diabetes, adrenal insuffici ency, who presents with altered mental status and diffuse abdominal pain and he was possibly found to have acute cholangitis versus cholecystitis as a reason of his admission. In ER patient was found to have white blood count of 11.2, fever of 100.3, tachycardia and dyspnea. LFT showed total bilirubin 2.8, direct bilirubin 2.1, transaminitis and alkaline phosphatase of 615. Lactic acid 3.1, creatinine 1.56. CTA negative for pulmonary emboli, CT abdomen and pelvis and the ultrasound of the gallbladder showed Hydropic gallbladder with concerns of cholecystitis. There'll also CBD dilation for which surgery was consulted and they ordered an MRCP. MRCP showing a distal stone and for that reason. GI be consulted for ERCP. Currently the patient is nothing by mouth except meds and is on IV Zosyn. Blood cultures have been sent and are currently pending. 1. Sepsis secondary to Cholangitis versus acute cholecystitis: CT scan or ultrasound as above. Continue IV Zosyn. Surgery recommendations appreciated. We will consult GI for possible ERCP. Currently, the patient will be kept nothing by mouth continue the antibiotics. Continue holding Eliquis for possible procedure. The following the blood cultures. 2. Metabolic encephalopathy, likely secondary to sepsis. Treatment as per 1. Continue following the electrolytes. 3. Adrenal insufficiency. Currently on IV hydrocortisone every 8 hours. Continue to monitor. We will switch to oral once acute issues are resolved. 4. Acute kidney injury superimposed on CKD 2/3 a. . Currently, the renal function after hydration has improved. The patient was restarted on Aldactone and torsemide, which this morning. I have discontinued. We will continue holding the nephrotoxic drugs. Input output monitoring. 5. Atrial fibrillation. Rate controlled with Toprol 25 XL at home. Currently, which has been changed to 2.5 twice a day of regular metoprolol. Eliquis on hold. DVT and GI prophylaxis Disposition unknown at this time VS,Fishbone, I+O VS, Fishbone, I+O Laboratory Tests 04/08/20 18:13 04/09/20 04:45 Vital Signs Date Time Temp Pulse Resp B/P (MAP) Pulse Ox O2 Delivery O2 Flow Rate FiO2 04/09/20 12:20 85 112/66 04/09/20 12:00 4.0 04/09/20 12:00 98.2 21 100 Nasal Cannula I&O- Last 24 Hours up to 6 AM0 04/09/20 06:00 Intake Total 200 ml Output Total 450 ml Balance -250 ml IVANIA HARDWICK MD Apr 09, 2020 13:30
[2020-04-09] MEDS: NYSTATIN CREAM 15 GM TOP SCH ×2 (14:20→20:02)
[2020-04-09] MEDS: ACETAMINOPHEN 325 MG TAB PO PRN (16:31)
--- NOTE | 2020-04-09 18:59 | CR.PDOC ---
General Date of Consultation: Apr 09, 2020 Referring Provider: IVANIA KAUFMAN MD Attending Physician: CHET THOMPSON MD Consultation Primary physician/ hospitalist: - Dr. Kaufman Reason for consult: - CBD stone HPI: 74-year-old male patient with DM type II, COPD ( chronic interstitial lung disease with chronic hypoxemic respiratory failure on Home Oxygen 4L), CAD, prior cardiac stent, CHF, Atrial fibrillation on Eliquis ( last dose on 04/08/2020 as per patient) , CKD stage III, ( Cr- 1.15 -- 1.56), Lupus, adrenal insufficiency ( on steroid supplementation), was admitted to [facility] for altered mental status and diffuse abdominal pain. Patient is noted with abnormal liver panel and fever at the time of admission. Patient was seen by surgery for abnormal CT scan and had MRCP to evaluate further, which showed suspected CBD stone. GI was consulted for the same. Patent on examination was alert and oriented X 3 and able to provide detailed history. Patient reports having multiple episodes of right upper quadrant and epigastric abdominal pain, which improved on their own and then the last episode was one day prior to hospitalization, which was very severe 10/10 intensity, and continued without any improvement till he came to hospital and today is around 7/10 intensity, associated with nausea, multiple episodes of vomiting ( at home). Patient denied any fever at home but was noted to have chills and recorded temperature yesterday. Patient also rpeorts having diarrhea with multiple dark stools at the time of admission which is improving but no black stools and no bright red blood in stools. Patient was reported to be in altered mental status at the time of hospitalization but subsequently his mental status improved. Pertinent negative GI symptoms: Patient denies sick contacts, recent travel, early satiety or unintentional weight loss. No history of hematemesis, melena or hematochezia. Review of Systems: GI: as stated above CVS: No chest pain, No palpitations, No leg swelling. RS: No Shortness of breath, No Wheezing, no cough BUSINESS SERVICES OFFICER: As above. No focal motor weakness, No sensory problems Hematology: No bruising, No gum bleeding, Musculoskeletal: No joint pain, ambulating well. Skin: No rash : No hematuria, No burning sensation of the urine ENT: No ear discharge/ pain, No dysphagia. Eyes: No photophobia. Jaundice Home medications: reviewed. Antithrombotic agents: - Eliquis ( last dose on 04/08/2020) Medical h/o: As above. Surgical h/o: None on abdomen. Social h/o: Alcohol: social. ( remotely heavy use when he was in ) , smoking: Quit many years ago. IVDA/ drugs: No IVDA. Family h/o of GI cancers - None Prior Endoscopies: none in [facility] --- EGD: - None. -- Colonoscopy: - normal colonoscopy for screening in past ( done in [facility] as per patient). Prior GI evaluations: - None in [facility] Exam: Vitals: reviewed General: Alert and oriented x 3, not in distress HEENT: NO pallor, no icterus. Normal oropharynx, NO cervical lymph nodes. Chest: Labored breathing and using accessory muscles of respiration, bilateral air entry, CVS: S1, S2 heard, normal, no murmurs . Abdomen: non-distended, no surgical scars, soft, mild tenderness in right upper quadrant, no rigidity or guarding palpable enlarged gall bladder. normal bowel sounds heard. Rectal exam: Patient refused / Deferred at this time. Extremities: no pedal edema, pulses palpable. BUSINESS SERVICES OFFICER: no focal motor or sensory deficits. Moves all extremities Skin: no rash. Labs: reviewed. Imaging: reviewed. CTA negative for pulmonary emboli, CT abdomen and pelvis showed Hydropic gallbladder. No gallbladder wall thickening or visible calculi demonstrated. 2. Thickened wall of the rectum. Clinical correlation to exclude neoplasm suggested. Right upper quadrant ultrasound negative for stones. Impression: -- Recurrent right upper quadrant abdominal pain with nausea and vomiting and abnormal liver tests and imaging tests showing CBD stone with distended gall bladder -- DDx-- Choledocholithiasis and cholecystitis vs rule out cholangitis. Recommendations: -- Patient educated about the test results, possible differential diagnoses and All questions answered. -- NPO -- Broad spectrum antibiotics ( agree with Zosyn). -- Sepsis work up as per primary team. -- Patient is educated about the ERCP procedure, indications, risks ( respiratory risk from anesthesia, acute pancreatitis, bleeding, perforation, infection, hypotension, respiratory depression, allergy, need for endotracheal intubation, surgery, cardiac arrest, even ), benefits, limitations (e.g., missing a lesion), and all other alternatives (including IR drain, surgery, no intervention). Patient verbalized understanding and refused the ERCP in view of the risks. -- Patient want to try alternative options. -- Consulted IR for further evaluation. -- Discussed with Surgery as well. -- Recall GI if any change in status. Plan of care discussed with patient and primary team. Patient verbalized u nderstanding and agreed with the plan. Vital Signs/I&O Vital Signs Date Time Temp Pulse Resp B/P (MAP) Pulse Ox O2 Delivery O2 Flow Rate FiO2 04/09/20 16:00 97.8 76 20 142/83 (102) 99 Nasal Cannula 4.0 I&O- Last 24 Hours up to 6 AM 04/09/20 06:00 Intake Total 200 ml Output Total 450 ml Balance -250 ml Laboratory Data CBC/BMP Laboratory Tests 04/09/20 04:45 Allergies Coded Allergies: allopurinol (Verified Allergy, Mild, itching, 06/25/19) Home Medications Scheduled Acarbose (Acarbose) 25 Mg Tab, 25 MG PO ACP, (Reported) Apixaban (Eliquis) 5 Mg Tablet, 5 MG PO BID, (Reported) Atorvastatin Calcium (Atorvastatin Calcium) 40 Mg Tablet, 20 MG PO QHS, (Reported) Buspirone HCl (Buspirone HCl) 10 Mg Tablet, 10 MG PO QHS, (Reported) Buspirone HCl (Buspirone HCl) 10 Mg Tablet, 5 MG PO QAM, (Reported) Calcium Carbonate/Vitamin D3 (Calcium 600-Vit D3 400 Tablet) 1 Each Tablet, 1 TAB PO BID, (Reported) Cholecalciferol (Vitamin D3) (Vitamin D3) 1,000 Unit Tablet, 1,000 UNITS PO DAILY, (Reported) Cyanocobalamin (Vitamin B-12) (Vitamin B-12) 1,000 Mcg Tab, 1,000 MCG PO DAILY, (Reported) Epoetin Carson (Procrit) 20,000 Unit/Ml Inj, 20,000 UNIT SC Q2WK, (Reported) Ergocalciferol (Vitamin D2) (Vitamin D2) 50,000 Units Cap, 50,000 UNITS PO QWEEK, (Reported) WEDNESDAYS Famotidine (Famotidine) 20 Mg Tablet, 20 MG PO BID, (Reported) Febuxostat (Uloric) 80 Mg Tab, 80 MG PO DAILY, (Reported) Ferrous Gluconate (Ferrous Gluconate) 324 Mg Tab, 324 MG PO BIDWM, (Reported) Fluoxetine Hcl (Fluoxetine HCl) 20 Mg Cap, 80 MG PO DAILY, (Reported) TAKES AT 1200 Gabapentin (Gabapentin) 600 Mg Tablet, 600 MG PO BID, (Reported) Hydrocortisone (Hydrocortisone) 20 Mg Tablet, 20 MG PO QAM, (Reported) Hydrocortisone (Hydrocortisone) 20 Mg Tablet, 10 MG PO QPM, (Reported) L.acidoph/L.bulg/B.bif/S.therm (Bacid Caplet) 1 Tab Tab, 1 TAB PO DAILY, (Re ported) Magnesium Chloride (Slow-Mag) 1 Tab Tab, 1 TAB PO DAILY, (Reported) TAKES AT 1200 Metoprolol Succinate (Metoprolol Succinate) 50 Mg Tab.er.24h, 25 MG PO DAILY, (Reported) Multivitamins (Thera M Plus Tablet) 1 Tab Tab, 1 TAB PO DAILY, (Reported) Omeprazole (Omeprazole) 20 Mg Tablet.dr, 40 MG PO BID, (Reported) Oxybutynin Chloride (Oxybutynin Chloride ER) 15 Mg Tab, 15 MG PO DAILY, (Reported) Spironolactone (Spironolactone) 25 Mg Tablet, 25 MG PO DAILY, (Reported) Tamsulosin HCl (Flomax) 0.4 Mg Cap, 0.4 MG PO QPM, (Reported) Torsemide (Torsemide) 20 Mg Tablet, 20 MG PO BID, (Reported) 0900 and 1700 Scheduled PRN Acetaminophen (Acetaminophen) 325 Mg Tablet, 325 MG PO Q8H PRN for PAIN, (Reported) Albuterol Sulf (Albuterol Sulfate) 2.5 Mg/3 Ml Nebu, 2.5 MG INH Q4H PRN for SHORTNESS OF BREATH, (Reported) Albuterol Sulfate (Proair Hfa) 108 Mcg/Act Aer, 1 PUFF INH Q4H PRN for SHORTNESS OF BREATH, (Reported) Ammonium Lactate (Ammonium Lactate) 12% Cream..g., 1 DOSE TOP DAILY PRN for DRY SKIN, (Reported) Dextran/Hypromellose (Genteal Tears 0.1%-0.3% Drop) 15 Ml Drops, 1 DROP OU QID PRN for DRY EYES, (Reported) Hydrocodone/Acetaminophen (Hydrocodone-Acetamin 7.5-325) 1 Each Tablet, 1 TAB PO QID PRN for PAIN, (Reported) Nitroglycerin (Nitrostat) 0.4 Mg Subl, 0.4 MG SL NITRO PRN for CHEST PAIN, (Reported) Zolpidem Tartrate (Zolpidem Tartrate) 5 Mg Tablet, 5 MG PO QHS PRN for SLEEP, (Reported) Miscellaneous Medications [med rec comment] , (Reported) verified with CHET TURNER MD Apr 09, 2020 18:59
[2020-04-09] MEDS: TAMSULOSIN 0.4 MG CAP PO SCH (20:01)
[2020-04-09] MEDS: ATORVASTATIN 20 MG TAB PO SCH (20:01)
[2020-04-09] MEDS: ANEXSIA, NORCO 7.5MG/325MG TABLET(HYDROCODONE/APAP) PO PRN (22:01)
[2020-04-10] VITALS (7 sets, daily range): BP systolic 130–178; BP diastolic 78–108
[2020-04-10] MEDS: ANEXSIA, NORCO 7.5MG/325MG TABLET(HYDROCODONE/APAP) PO PRN ×3 (04:40→21:55)
[2020-04-10 04:58] LABS: BASO % 0.1 % (0.0-1.0); HEMATOCRIT 32.1 % (42.0-52.0); HEMOGLOBIN 9.9 g/dl (13.5-17.5); LYMPH # 0.6 10^3/uL (1.5-5.0); LYMPH % 4.6 % (24.0-44.0); MEAN CORPUSCULAR HGB CONC 30.8 g/dl (32.0-36.5); MEAN CORPUSCULAR VOLUME 90.7 fl (80.0-96.0); MONO # 0.7 10^3/uL (0.0-0.8); MONO % 5.7 % (0.0-5.0); NEUTROPHILS # 11.3 10^3/uL (1.5-8.5); NEUTROPHILS % 88.7 % (36.0-66.0); PLATELET COUNT, AUTOMATED 215 10^3/uL (150-450); RED BLOOD COUNT 3.54 10^6/uL (4.30-6.10); WHITE BLOOD COUNT 12.7 10^3/uL (4.0-10.0)
[2020-04-10] MEDS: PIPERACILLIN/TAZOBACTAM SOD 3.375 GM in D5W MINI-BAG PLUS 50 ML IV SCH ×3 (05:09→21:55)
[2020-04-10 05:21] LABS: ALBUMIN 2.3 GM/DL (3.2-5.2); BILIRUBIN,TOTAL 1.3 MG/DL (0.2-1.0); CALCIUM LEVEL 8.7 MG/DL (8.8-10.2); CREATININE FOR GFR 1.26 MG/DL (0.70-1.30); GLOMERULAR FILTRATION RATE 59.6 (>42); POTASSIUM SERUM 3.7 MEQ/L (3.5-5.1); TOTAL PROTEIN 6.2 GM/DL (6.4-8.2)
[2020-04-10] MEDS: HumaLOG INSULIN (NovoLOG) PER UNIT SC SCH ×3 (05:22→17:52)
--- NOTE | 2020-04-10 07:44 | CR.PDOC ---
General Surgery Consultation Date of Consultation 04/09/20 History and Physical CONSULT REPORT FOR: hospitalist service REASON FOR CONSULTATION: fever, abdominal pain HISTORY OF PRESENT ILLNESS: PAST MEDICAL HISTORY: 1. . PAST SURGICAL HISTORY: INCLUDES: 1. . PREVIOUS ANESTHESIA REACTIONS: ALLERGIES: Please see below. FAMILY HISTORY: . HOME MEDICATIONS: Please see below. REVIEW OF SYSTEMS: GENERAL: [Denies chills, reports weight gain, reports feeling febrile yesterday]. HEENT: [Denies blurred vision and double vision. Denies ear symptoms. Denies hoarseness]. NECK: Denies any neck pain]. CARDIOVASCULAR: [Denies chest pain and palpitations]. MUSCULOSKELETAL: [Denies arthralgias, back pain and thrombophlebitis]. SKIN: [Denies rash]. NEUROLOGIC: [Denies headache, stroke and transient ischemic attack]. PSYCHIATRIC: [Denies anxiety and depression]. ENDOCRINE: [Denies thyroid disease]. HEMATOLOGY/ONCOLOGY: [Denies bleeding or clotting disorder]. HEART: [Denies any chest pains, palpitations, paroxysmal dyspnea, orthopnea]. PULMONARY: [Denies chronic cough, dyspnea and wheezing]. GASTROINTESTINAL: [Denies rectal bleeding, family history of colon cancer, constipation, diarrhea, dysphagia, heartburn and jaundice]. GENITOURINARY: [Denies dysuria, frequency, hematuria and nocturia]. ENDOCRINE: [Denies polydipsia, polyphagia, polyuria, heat or cold intolerance]. INFECTIOUS: [Denies any recent upper respiratory tract infection, UTI, need for use of antibiotics]. NUTRITION: [Reports good appetite]. PHYSICAL EXAMINATION: VITALS SIGNS: Please see below. GENERAL APPEARANCE:[Patient seen, laying in bed, awake, alert, and oriented. Comfortable, in no acute distress]. SKIN: [Warm and moist]. HEENT: [Normocephalic, atraumatic. [place] palpebral conjunctiva, anicteric sclerae. Lips and mucosa appear moist]. NECK: [Supple, no thyromegaly. No obvious jugular venous distention]. LUNGS: [Clear to auscultation bilaterally. No wheezing appreciated]. HEART: [No chest wall abnormalities. Regular rate and rhythm with no murmurs appreciated]. ABDOMEN: Abdomen is , soft, . [No hepatosplenomegaly. No umbilical or groin herniations, nondistended. No noticeable rebound or guarding. No grimacing with palpation. No rebound tenderness. No masses appreciated]. EXTREMITIES: [Extremities have no deformities. No edema identified] ANCILLARIES: . LABORATORY DATA: Please see below. IMAGING STUDIES: . IMPRESSION AND PLAN: most likely cholangitis vs acute cholecystitis MRCP if no distal CBD stone, will proceed with cholecystectomy Vital Signs Vital Signs Date Time Temp Pulse Resp B/P (MAP) Pulse Ox O2 Delivery O2 Flow Rate FiO2 04/10/20 06:25 97.3 87 20 140/80 (100) 96 Nasal Cannula 04/10/20 04:00 4.0 I&Os I&O- Last 24 Hours up to 6 AM 04/10/20 05:59 Intake Total 3240 ml Output Total 895 ml Balance 2345 ml Laboratory Data Labs 24H Laboratory Tests 2 04/09/20 12:13: Bedside Glucose (Misc Panel) 108 04/09/20 13:59: Coronavirus (COVID-19)(PCR) NEGATIVE 04/09/20 17:56: Bedside Glucose (Misc Panel) 96 04/09/20 23:06: Bedside Glucose (Misc Panel) 106 04/10/20 04:37: Immature Granulocyte % (Auto) 0.9, Neutrophils (%) (Auto) 88.7H, Lymphocytes (%) (Auto) 4.6L, Monocytes (%) (Auto) 5.7H, Eosinophils (%) (Auto) 0.0, Basophils (%) (Auto) 0.1, Neutrophils # (Auto) 11.3H, Lymphocytes # (Auto) 0.6L, Monocytes # (Auto) 0.7, Eosinophils # (Auto) 0.0, Basophils # (Auto) 0.0, Nucleated Red Blood Cells % (auto) 0.0, Anion Gap 9, Glomerular Filtration Rate 59.6, Calcium Level 8.7L, Total Bilirubin 1.3#H, Aspartate Amino Transf (AST/SGOT) 48H, Alanine Aminotransferase (ALT/SGPT) 71, Alkaline Phosphatase 405H, Total Protein 6.2L, Albumin 2.3L, Albumin/Globulin Ratio 0.6 CBC/BMP Laboratory Tests 04/10/20 04:37 Microbiology Microbiology 04/08/20 Blood Culture - Preliminary, Resulted 04/08/20 Blood Culture - Preliminary, Resulted 04/08/20 Urine Culture, Received Pending Home Medications Scheduled Acarbose (Acarbose) 25 Mg Tab, 25 MG PO ACP, (Reported) Apixaban (Eliquis) 5 Mg Tablet, 5 MG PO BID, (Reported) Atorvastatin Calcium (Atorvastatin Calcium) 40 Mg Tablet, 20 MG PO QHS, (Reported) Buspirone HCl (Buspirone HCl) 10 Mg Tablet, 10 MG PO QHS, (Reported) Buspirone HCl (Buspirone HCl) 10 Mg Tablet, 5 MG PO QAM, (Reported) Calcium Carbonate/Vitamin D3 (Calcium 600-Vit D3 400 Tablet) 1 Each Tablet, 1 TAB PO BID, (Reported) Cholecalciferol (Vitamin D3) (Vitamin D3) 1,000 Unit Tablet, 1,000 UNITS PO DAILY, (Reported) Cyanocobalamin (Vitamin B-12) (Vitamin B-12) 1,000 Mcg Tab, 1,000 MCG PO DAILY, (Reported) Epoetin Carson (Procrit) 20,000 Unit/Ml Inj, 20,000 UNIT SC Q2WK, (Reported) Ergocalciferol (Vitamin D2) (Vitamin D2) 50,000 Units Cap, 50,000 UNITS PO QWEEK, (Reported) WEDNESDAYS Famotidine (Famotidine) 20 Mg Tablet, 20 MG PO BID, (Reported) Febuxostat (Uloric) 80 Mg Tab, 80 MG PO DAILY, (Reported) Ferrous Gluconate (Ferrous Gluconate) 324 Mg Tab, 324 MG PO BIDWM, (Reported) Fluoxetine Hcl (Fluoxetine HCl) 20 Mg Cap, 80 MG PO DAILY, (Reported) TAKES AT 1200 Gabapentin (Gabapentin) 600 Mg Tablet, 600 MG PO BID, (Reported) Hydrocortisone (Hydrocortisone) 20 Mg Tablet, 20 MG PO QAM, (Reported) Hydrocortisone (Hydrocortisone) 20 Mg Tablet, 10 MG PO QPM, (Reported) L.acidoph/L.bulg/B.bif/S.therm (Bacid Caplet) 1 Tab Tab, 1 TAB PO DAILY, (Reported) Magnesium Chloride (Slow-Mag) 1 Tab Tab, 1 TAB PO DAILY, (Reported) TAKES AT 1200 Metoprolol Succinate (Metoprolol Succinate) 50 Mg Tab.er.24h, 25 MG PO DAILY, (Reported) Multivitamins (Thera M Plus Tablet) 1 Tab Tab, 1 TAB PO DAILY, (Reported) Omeprazole (Omeprazole) 20 Mg Tablet.dr, 40 MG PO BID, (Reported) Oxybutynin Chloride (Oxybutynin Chloride ER) 15 Mg Tab, 15 MG PO DAILY, (Reported) Spironolactone (Spironolactone) 25 Mg Tablet, 25 MG PO DAILY, (Reported) Tamsulosin HCl (Flomax) 0.4 Mg Cap, 0.4 MG PO QPM, (Reported) Torsemide (Torsemide) 20 Mg Tablet, 20 MG PO BID, (Reported) 0900 and 1700 Scheduled PRN Acetaminophen (Acetaminophen) 325 Mg Tablet, 325 MG PO Q8H PRN for PAIN, (Re ported) Albuterol Sulf (Albuterol Sulfate) 2.5 Mg/3 Ml Nebu, 2.5 MG INH Q4H PRN for SHORTNESS OF BREATH, (Reported) Albuterol Sulfate (Proair Hfa) 108 Mcg/Act Aer, 1 PUFF INH Q4H PRN for SHORTNESS OF BREATH, (Reported) Ammonium Lactate (Ammonium Lactate) 12% Cream..g., 1 DOSE TOP DAILY PRN for DRY SKIN, (Reported) Dextran/Hypromellose (Genteal Tears 0.1%-0.3% Drop) 15 Ml Drops, 1 DROP OU QID PRN for DRY EYES, (Reported) Hydrocodone/Acetaminophen (Hydrocodone-Acetamin 7.5-325) 1 Each Tablet, 1 TAB PO QID PRN for PAIN, (Reported) Nitroglycerin (Nitrostat) 0.4 Mg Subl, 0.4 MG SL NITRO PRN for CHEST PAIN, (Reported) Zolpidem Tartrate (Zolpidem Tartrate) 5 Mg Tablet, 5 MG PO QHS PRN for SLEEP, (Reported) Miscellaneous Medications [med rec comment] , (Reported) verified with [facility] All[facility] Coded Allergies: allopurinol (Verified Allergy, Mild, itching, 06/25/19) CARMEN DUKES MD Apr 10, 2020 07:44
[2020-04-10] MEDS: HEPARIN SOD (PORCINE) 5000UNITS/ML 1ML VIAL/SYRINGE SC SCH ×2 (09:05→20:14)
[2020-04-10] MEDS: METOPROLOL TART 12.5 MG PER 1/2 TAB PO SCH ×2 (09:05→20:13)
[2020-04-10] MEDS: FLUoxetine 20 MG CAP PO SCH (09:05)
[2020-04-10] MEDS: oxyBUTYnin *DITROPAN XL* 5 MG TABCR PO SCH (09:05)
[2020-04-10] MEDS: HYDROCORTISONE 100 MG/2 ML VIAL (J1720 PER 1) IV SCH ×2 (09:05→16:50)
[2020-04-10] MEDS: FERROUS GLUCONATE 324 MG TAB PO SCH ×2 (09:06→17:51)
[2020-04-10] MEDS: NYSTATIN CREAM 15 GM TOP SCH ×2 (09:06→20:15)
[2020-04-10] MEDS: OMEPRAZOLE 20 MG CAP PO SCH ×2 (09:06→20:14)
[2020-04-10] MEDS: ACETAMINOPHEN 325 MG TAB PO PRN (09:15)
[2020-04-10] MEDS: busPIRone 5 MG TAB PO SCH (11:22)
[2020-04-10] MEDS: FEBUXOSTAT 40 MG TABLET (ULORIC) PO SCH (11:24)
--- NOTE | 2020-04-10 12:34 | IPNPDOC ---
Text Note Date of Service The patient was seen on 04/10/20. NOTE Patient was seen and examined this morning by me. He states that he feels much better and his abdominal pain has been resolving PHYSICAL EXAMINATION: General: The patient is awake, alert, oriented x3, sitting up in the bed in mild distress because of abdominal pain. Head and Neck Exam: Extraocular muscles intact. Pupils equally round and reactive to light. Mucous membranes are moist. Neck is supple. There is no jugular venous distention (JVD). Cardiovascular: S1 and S2, regular rate. Trace edema of the bilateral lower extremities. Respiratory: Mild inspiratory crackles at the right base, mildly decreased breath sounds at the left side. Abdomen: Tenderness on ordered palpation in the right upper quadrant , Positive bowel sounds. Nontender. No organomegaly. Genitourinary: Deferred Musculoskeletal: Clubbing of the fingernails, no cyanosis was noted. Central Nervous System (IMAGING ASSISTANT): No focal deficit. Power is 5/5 in all extremities. Assessment and plan The patient is a 73-year-old male with history of possibly diastolic congestive heart failure, lupus with chronic interstitial lung disease on home oxygen, atrial fibrillation rate controlled and on Eliquis, diabetes, adrenal insufficiency, who presents with altered mental status and diffuse abdominal pain and he was possibly found to have acute cholangitis versus cholecystitis as a reason of his admission. In ER patient was found to have white blood count of 11.2, fever of 100.3, tachycardia and dyspnea. LFT showed total bilirubin 2.8, direct bilirubin 2.1, transaminitis and alkaline phosphatase of 615. Lactic acid 3.1, creatinine 1.56. CTA negative for pulmonary emboli, CT abdomen and pelvis and the ultrasound of the gallbladder showed Hydropic gallbladder with concerns of cholecystitis. There'll also CBD dilation for which surgery was consulted and they ordered an MRCP. MRCP showing a distal stone and for that reason. GI be consulted for ERCP. as per GI. The patient is high risk because of his chronic lung and heart problems and the consulted IR for a possible percutaneous drain. This morning, the patient's LFTs have been resolving, as well as bilirubin has been returning to the normal, and I had a detailed discussion with Dr. Olmstead, and after that, we decided that we will hold any percutaneous intervention at this time and the patient will be started on oral diet and antibiotics will be continued for now. 1. Sepsis secondary to Cholangitis versus acute cholecystitis: Resolving. CT scan or ultrasound as above. Continue IV Zosyn. Surgery recommendations appreciated. MRCP showing a distal stone and for that reason. GI be consulted for ERCP. as per GI. The patient is high risk because of his chronic lung and heart problems and the consulted IR for a possible percutaneous drain. This morning, the patient's LFTs have been resolving, as well as bilirubin has been returning to the normal, and I had a detailed discussion with Dr. Olmstead, and after that, we decided that we will hold any percutaneous intervention at this time and the patient will be started on oral diet and antibiotics will be continued for now. 2. Metabolic encephalopathy, likely secondary to sepsis. Resolved. Treatment as per 1. Continue following the electrolytes. 3. Adrenal insufficiency. Currently on IV hydrocortisone every 8 hours. Continue to monitor. We will switch to oral once acute issues are resolved. 4. Acute kidney injury superimposed on CKD 2/3 a. Resolved. The patient was restarted on Aldactone and torsemide by the admitting physician, which eventually was discontinued by me We will continue holding the nephrotoxic drugs. Input output monitoring. 5. Atrial fibrillation. Rate controlled with Toprol 25 XL at home. Currently, which has been changed to 2.5 twice a day of regular metoprolol. Eliquis on hold as a prophylactic major if the patient will require procedure Antibiotics with IV Zosyn day 3. DVT and GI prophylaxis Disposition unknown at this time VS,Fishbone, I+O VS, Fishbone, I+O Laboratory Tests 04/10/20 04:37 Vital Signs Date Time Temp Pulse Resp B/P (MAP) Pulse Ox O2 Delivery O2 Flow Rate FiO2 04/10/20 12:00 97.3 68 18 178/108 (131) 99 Nasal Cannula 4.0 I&O- Last 24 Hours up to 6 AM 04/10/20 06:00 Intake Total 3960 ml Output Total 975 ml Balance 2985 ml IVANIA HARDWCIK MD Apr 10, 2020 12:34
[2020-04-10] MEDS: NS 1,000 ML IV SCH (12:41)
[2020-04-10] MEDS: ATORVASTATIN 20 MG TAB PO SCH (20:14)
[2020-04-10] MEDS: TAMSULOSIN 0.4 MG CAP PO SCH (20:14)
[2020-04-10] MEDS: busPIRone 10 MG TAB PO SCH (20:14)
[2020-04-11 00:05] VITALS: BP 150/90
[2020-04-11] MEDS: HumaLOG INSULIN (NovoLOG) PER UNIT SC SCH ×4 (00:40→17:39)
[2020-04-11] MEDS: HYDROCORTISONE 100 MG/2 ML VIAL (J1720 PER 1) IV SCH ×3 (00:41→15:13)
[2020-04-11 04:00] VITALS: BP 144/86
[2020-04-11] MEDS: PIPERACILLIN/TAZOBACTAM SOD 3.375 GM in D5W MINI-BAG PLUS 50 ML IV SCH ×2 (05:44→13:34)
[2020-04-11] MEDS: NS 1,000 ML IV SCH (05:44)
[2020-04-11 07:01] LABS: HEMATOCRIT 29.9 % (42.0-52.0); HEMOGLOBIN 9.5 g/dl (13.5-17.5); LYMPH # 0.5 10^3/uL (1.5-5.0); LYMPH % 6.6 % (24.0-44.0); MEAN CORPUSCULAR HGB CONC 31.8 g/dl (32.0-36.5); MEAN CORPUSCULAR VOLUME 91.2 fl (80.0-96.0); MONO # 0.4 10^3/uL (0.0-0.8); MONO % 5.8 % (0.0-5.0); NEUTROPHILS # 5.9 10^3/uL (1.5-8.5); NEUTROPHILS % 86.7 % (36.0-66.0); PLATELET COUNT, AUTOMATED 207 10^3/uL (150-450); RED BLOOD COUNT 3.28 10^6/uL (4.30-6.10); WHITE BLOOD COUNT 6.9 10^3/uL (4.0-10.0)
[2020-04-11 07:29] LABS: ALBUMIN 2.3 GM/DL (3.2-5.2); BILIRUBIN,TOTAL 0.8 MG/DL (0.2-1.0); CALCIUM LEVEL 8.9 MG/DL (8.8-10.2); CREATININE FOR GFR 1.43 MG/DL (0.70-1.30); GLOMERULAR FILTRATION RATE 51.5 (>42); POTASSIUM SERUM 3.5 MEQ/L (3.5-5.1); TOTAL PROTEIN 5.5 GM/DL (6.4-8.2)
[2020-04-11 08:00] VITALS: BP 143/92
[2020-04-11] MEDS: OMEPRAZOLE 20 MG CAP PO SCH ×2 (08:51→20:17)
[2020-04-11] MEDS: FLUoxetine 20 MG CAP PO SCH (08:51)
[2020-04-11] MEDS: oxyBUTYnin *DITROPAN XL* 5 MG TABCR PO SCH (08:52)
[2020-04-11] MEDS: METOPROLOL TART 12.5 MG PER 1/2 TAB PO SCH ×2 (08:52→20:19)
[2020-04-11] MEDS: FERROUS GLUCONATE 324 MG TAB PO SCH ×2 (08:52→17:39)
[2020-04-11] MEDS: busPIRone 5 MG TAB PO SCH (08:52)
[2020-04-11] MEDS: NYSTATIN CREAM 15 GM TOP SCH ×2 (08:53→20:20)
[2020-04-11] MEDS: HEPARIN SOD (PORCINE) 5000UNITS/ML 1ML VIAL/SYRINGE SC SCH ×2 (09:00→20:19)
[2020-04-11] MEDS: FEBUXOSTAT 40 MG TABLET (ULORIC) PO SCH (09:35)
[2020-04-11 12:00] VITALS: BP 149/90
[2020-04-11] MEDS: ANEXSIA, NORCO 7.5MG/325MG TABLET(HYDROCODONE/APAP) PO PRN ×2 (13:35→21:24)
[2020-04-11 16:00] VITALS: BP 151/59
--- NOTE | 2020-04-11 18:01 | IPNPDOC ---
Text Note Date of Service The patient was seen on 04/11/20. NOTE Subjective: Patient was seen at bedside on 04/11/2020. He reports his pain is improving. And rates his pain as 5/10 in the right upper quadrant region today. [On admission he had 10/10 intensity]. He reports having 7-10 loose bowel movements per day which are dark stools since the admission. He denies noticing any blood. Objective: General: Well developed, built: normal, Patient is awake, alert, oriented times three, sitting on bed , no apparent distress. Eyes: Conjunctiva clear, pupils equal round and reactive to light and accommodation. EOM full, Fundus: not visualized. Cardiovascular: S1, S2, normal rhythm, no murmur, rub, or gallop. Pulses: Carotid, radial, posterior tibialis and pedal 3+ symmetric, no edema. Respiratory: Chest is clear to auscultation bilaterally, No rhonchi, wheezes or rubs. Abdomen: Soft, bowel sounds positive, no bruits. Mild tenderness in right upper quadrant, no rigidity or guarding during palpation. Extremities: No clubbing or cyanosis. No edema, no tenderness. Central nervous system (RAISIN WASHER): Awake, alert and fully oriented. Skin: Heparin injection side bruising noted in the abdomen. Imaging: Head CT: Impression: No acute intracranial pathology demonstrated on CT. CT angiogram: Impression: Increased interstitial markings demonstrated peripherally bilateral consistent with interstitial lung disease. No segmental or lobar infiltration. No aortic dissection or aneurysm. Motion artifact limited evaluation of small pulmonary arteries. No large central pulmonary embolism demonstrated. CT abdomen/pelvis with IV contrast: Impression: Hydropic gallbladder. No gallbladder wall thickening or visible calculi demonstrated. Thickened wall of the rectum [clinical correlation to exclude neoplasm suggestive]. Mild splenomegaly with maximum span of 13.6 cm no focal abnormalities demonstrated. Gallbladder ultrasound: Impression: Hydropic gallbladder, sludge within the lumen of the gallbladder no calculus demonstrated. CBD dilated and measures 1.5 cm no mass or choledocholithiasis. MRI abdomen without contrast. [MRCP]: Impression: Distended gallbladder, extrahepatic and mild intrahepatic biliary ductal dilation with distant choledocholithiasis. Mild pericholecystic and perihepatic pericorneal fluid. Infrarenal abdominal aortic aneurysm. Assessment: Mr. Frances is a 73 year old male patient with a history of diastolic CHF, lupus with chronic interstitial lung disease on home oxygen, atrial fibrillation rate controlled with Eliquis, diabetes, adrenal insufficiency and presented to the emergency department with altered mental status and diffuse abdominal pain. On further workup in the ED he was found to have acute cholangitis versus cholecystitis. His labs in ED R WBC 11.2, fever 100.3, elevated transaminases, total bilirubin of 2.8 direct bilirubin 2.1, with lymphostasis 615, lactic acid 3.1, creatinine 1.56. GI was consulted for ERCP as per GI patient is at high risk due to his chronic lung and heart problems,consulted IR for a possible percutaneous drain. Sepsis secondary to bacteremia 2/2 UTI; with possible cholangitis / acute cholecystitis: He was supposed to go for percutaneous intervention today, but as his labs were improving the procedure was held. - As his labs are improving indicating that his stone likely has passed. Surgery was consulted for the same; discussed case; will have outpatient cholecystectomy pursued Patient is on clear liquid diet and advance diet as tolerated. Blood cultures and urine cultures were back growing Escherichia coli. Will start him on Cefdinir 300 mg twice a day by mouth based on sensitivities Patient was having dark loose stools and since admission, FOBT negative, will get a GI panel. Elevated Cr - Will increase IV fluid hydration given diarrhea - Will anticipate stopping fluids within 24 hours Diarrhea - GI panel pending Adrenal insufficiency: Currently on IV hydrocortisone every 8 hours will continue to monitor. Acute kidney injury: - Resolved. Aldactone and torsemide on hold. Will not start any nephrotoxic medication. Atrial fibrillation: Patient is on rate control medication metoprolol 2.5 twice a day. Patient was on Eliquis prior and was hold on further procedure, will restart Eliquis as the procedure was canceled. Started on Eliquis 5 mg by mouth twice a day. On atorvastatin 20 mg by mouth GI prophylaxis: On omeprazole 40 mg. DVT prophylaxis: Patient is on Eliquis Disposition: - Will plan for discharge tomorrow if patient is doing well. VS,Fishbone, I+O VS, Fishbone, I+O Laboratory Tests 04/11/20 06:40 Vital Signs Date Time Temp Pulse Resp B/P (MAP) Pulse Ox O2 Delivery O2 Flow Rate FiO2 04/11/20 16:00 4.0 04/11/20 14:05 18 Nasal Cannula 04/11/20 12:00 97.6 60 149/90 [phone] 89 I&O- Last 24 Hours up to 6 AM 04/11/20 05:59 Intake Total 2700 ml Output Total 730 ml Balance 1970 ml GME ATTESTATION GME ATTESTATION My faculty preceptor for this patient encounter was physically present during the encounter and was fully available. All aspects of the patient interview, examination, medical decision making process, and medical care plan development were reviewed and approved by the faculty preceptor. The faculty preceptor is aware and concurs with the plan as stated in the body of this note and will attest to such by his/her cosignature. ATTENDING NOTE I, Jessica Nj, have independently examined this patient and performed my own physical exam, as well as reviewed the documentation and edited where necessary. I have discussed in detail with the resident / student the findings and plan of treatment as documented by the resident / student and edited their note. I agree with their findings and treatment plan and have edited their documentation. I will continue to follow the patient during this hospital stay. Oliver Alan MD Apr 11, 2020 18:00 JESSICA NJ MD Apr 11, 2020 18:33
[2020-04-11 20:00] VITALS: BP 150/82
[2020-04-11] MEDS: TAMSULOSIN 0.4 MG CAP PO SCH (20:19)
[2020-04-11] MEDS: busPIRone 10 MG TAB PO SCH (20:19)
[2020-04-11] MEDS: CEFDINIR 300 MG CAP (OMNICEF) PO SCH (20:19)
[2020-04-11] MEDS: ATORVASTATIN 20 MG TAB PO SCH (20:19)
[2020-04-12] VITALS: BP 148/78
[2020-04-12] MEDS: NS 1,000 ML IV SCH (00:08)
[2020-04-12] MEDS: HumaLOG INSULIN (NovoLOG) PER UNIT SC SCH ×4 (00:09→17:27)
[2020-04-12] MEDS: HYDROCORTISONE 100 MG/2 ML VIAL (J1720 PER 1) IV SCH ×3 (00:09→16:28)
[2020-04-12 04:00] VITALS: BP 156/82
[2020-04-12 05:39] LABS: HEMATOCRIT 31.6 % (42.0-52.0); HEMOGLOBIN 9.8 g/dl (13.5-17.5); LYMPH # 0.6 10^3/uL (1.5-5.0); LYMPH % 8.1 % (24.0-44.0); MEAN CORPUSCULAR HEMOGLOBIN 28.6 pg (27.0-33.0); MEAN CORPUSCULAR VOLUME 92.1 fl (80.0-96.0); MONO # 0.5 10^3/uL (0.0-0.8); MONO % 7.5 % (0.0-5.0); NEUTROPHILS # 5.9 10^3/uL (1.5-8.5); NEUTROPHILS % 83.3 % (36.0-66.0); PLATELET COUNT, AUTOMATED 203 10^3/uL (150-450); RED BLOOD COUNT 3.43 10^6/uL (4.30-6.10); WHITE BLOOD COUNT 7.1 10^3/uL (4.0-10.0)
[2020-04-12 06:00] LABS: ALBUMIN 2.4 GM/DL (3.2-5.2); ALT/SGPT 50 U/L (12-78); BILIRUBIN,TOTAL 0.7 MG/DL (0.2-1.0); BLOOD UREA NITROGEN 30 MG/DL (7-18); CALCIUM LEVEL 8.4 MG/DL (8.8-10.2); CARBON DIOXIDE LEVEL 22 MEQ/L (21-32); CHLORIDE LEVEL 111 MEQ/L (98-107); CREATININE FOR GFR 1.25 MG/DL (0.70-1.30); GLOMERULAR FILTRATION RATE > 60.0 (>42); GLUCOSE, FASTING 85 MG/DL (70-100); POTASSIUM SERUM 3.5 MEQ/L (3.5-5.1); SODIUM LEVEL 140 MEQ/L (136-145); TOTAL PROTEIN 5.3 GM/DL (6.4-8.2)
[2020-04-12 08:00] VITALS: BP 159/92
[2020-04-12] MEDS: oxyBUTYnin *DITROPAN XL* 5 MG TABCR PO SCH (08:27)
[2020-04-12] MEDS: FEBUXOSTAT 40 MG TABLET (ULORIC) PO SCH (08:27)
[2020-04-12] MEDS: NYSTATIN CREAM 15 GM TOP SCH ×2 (08:28→20:16)
[2020-04-12] MEDS: FLUoxetine 20 MG CAP PO SCH (08:28)
[2020-04-12] MEDS: CEFDINIR 300 MG CAP (OMNICEF) PO SCH (08:28)
[2020-04-12] MEDS: OMEPRAZOLE 20 MG CAP PO SCH ×2 (08:28→20:09)
[2020-04-12] MEDS: FERROUS GLUCONATE 324 MG TAB PO SCH ×2 (08:28→17:27)
[2020-04-12] MEDS: HEPARIN SOD (PORCINE) 5000UNITS/ML 1ML VIAL/SYRINGE SC SCH ×2 (08:29→20:10)
[2020-04-12] MEDS: busPIRone 5 MG TAB PO SCH (08:30)
[2020-04-12] MEDS: METOPROLOL TART 12.5 MG PER 1/2 TAB PO SCH ×2 (08:31→20:09)
[2020-04-12] MEDS: PIPERACILLIN/TAZOBACTAM SOD 3.375 GM in D5W MINI-BAG PLUS 50 ML IV SCH ×2 (11:52→18:33)
[2020-04-12 12:00] VITALS: BP 157/100
--- NOTE | 2020-04-12 15:35 | IPNPDOC ---
Text Note Date of Service The patient was seen on 04/12/20. NOTE Subjective: Patient seen at bedside on 04/12/2022. He reports his pain has been resolved and is not in any sort of pain. He reports having loose bowel movements every 2- 3 hours and not much changed regarding the diarrhea since yesterday. His GI panel is still pending. Objective: General: Well developed, built: normal, Patient is awake, alert, oriented times three, sitting in chair , no apparent distress. Eyes: Conjunctiva clear, pupils equal round and reactive to light and accommodation. Cardiovascular: S1, S2, normal rhythm, no murmur, rub, or gallop. Respiratory: Chest is clear to auscultation bilaterally, No rhonchi, wheezes or rubs. Abdomen: Soft, bowel sounds positive, no bruits. No tenderness on palpation of the abdomen. Extremities: No clubbing or cyanosis. No edema, no tenderness. Central nervous system (LITERACY CONSULTANT): Awake, alert and fully oriented. Skin: Heparin injection side bruising noted in the abdomen not changed since yesterday. Imaging: Head CT: Impression: No acute intracranial pathology demonstrated on CT. CT angiogram: Impression: Increased interstitial markings demonstrated peripherally bilateral consistent with interstitial lung disease. No segmental or lobar infiltration. No aortic dissection or aneurysm. Motion artifact limited evaluation of small pulmonary arteries. No large central pulmonary embolism demonstrated. CT abdomen/pelvis with IV contrast: Impression: Hydropic gallbladder. No gallbladder wall thickening or visible calculi demonstrated. Thickened wall of the rectum [clinical correlation to exclude neoplasm suggestive]. Mild splenomegaly with maximum span of 13.6 cm no focal abnormalities demonstrated. Gallbladder ultrasound: Impression: Hydropic gallbladder, sludge within the lumen of the gallbladder no calculus demonstrated. CBD dilated and measures 1.5 cm no mass or choledocholithiasis. MRI abdomen without contrast. [MRCP]: Impression: Distended gallbladder, extrahepatic and mild intrahepatic biliary ductal dilation with distant choledocholithiasis. Mild pericholecystic and perihepatic pericorneal fluid. Infrarenal abdominal aortic aneurysm. Assessment: Mr. Frances is a 73-year-old male patient with a history of diastolic CHF, lupus with chronic interstitial lung disease on home oxygen, atrial f ibrillation rate controlled with Eliquis, diabetes, adrenal insufficiency who presented to the emergency department with altered mental status and diffuse abdominal pain. Other workup in the ED he was found to have acute cholangitis versus cholecystitis, GI was consulted for possible ERCP as patient was high risk for surgery. Later consulted IR for possible percutaneous drain which was deferred as his labs were getting better with a possible reason that he passed a stone. He was stable and improving since then. He was supposed to go home today but his blood cultures came back positive for enterococcus faecium, sensitivities pending. Sepsis secondary to bacteremia 2/2 UTI with possible cholangitis/acute cholecystitis: His blood cultures were positive with Escherichia coli earlier, today came back positive for enterococcus faecium with pending sensitivities. Will hold off on his discharge today[waiting for sensitivities] Will stop Cefdinir for now and start on Zosyn covering empirically. Patient still having dark loose stools, FOBT negative, still waiting on GI panel Diarrhea - GI panel pending; collected - report pending Adrenal insufficiency: Currently on IV hydrocortisone every 8 hours will continue to monitor. Acute kidney injury: - Resolved. Aldactone and torsemide on hold; will resume on discharge Will not start any nephrotoxic medication. - Will DC IV fluid hydration Atrial fibrillation: Patient is on rate control medication metoprolol 2.5 twice a day. On Eliquis 5 mg by mouth twice a day. On atorvastatin 20 mg by mouth GI prophylaxis: On omeprazole 40 mg. DVT prophylaxis: Patient is on Eliquis Disposition: - Anticipate DC home tomorrow; pending sensitivities VS,Fishbone, I+O VS, Fishbone, I+O Laboratory Tests 04/12/20 04:46 Vital Signs Date Time Temp Pulse Resp B/P (MAP) Pulse Ox O2 Delivery O2 Flow Rate FiO2 04/12/20 08:31 64 159/92 04/12/20 08:00 97.5 18 98 Nasal Cannula 4.0 I&O- Last 24 Hours up to 6 AM 04/12/20 06:00 Intake Total 2940 ml Output Total 470 ml Balance 2470 ml GME ATTESTATION GME ATTESTATION My faculty preceptor for this patient encounter was physically present during the encounter and was fully available. All aspects of the patient interview, examination, medical decision making process, and medical care plan development were reviewed and approved by the faculty preceptor. The faculty preceptor is aware and concurs with the plan as stated in the body of this note and will attest to such by his/her cosignature. ATTENDING NOTE I, Jessica Nj, have independently examined this patient and performed my own physical exam, as well as reviewed the documentation and edited where necessary. I have discussed in detail with the resident / student the findings and plan of treatment as documented by the resident / student and edited their note. I agree with their findings and treatment plan and have edited their documentation. I will continue to follow the patient during this hospital stay. Oliver Alan MD Apr 12, 2020 11:49 JESSICA NJ MD Apr 12, 2020 15:35
[2020-04-12] MEDS: ANEXSIA, NORCO 7.5MG/325MG TABLET(HYDROCODONE/APAP) PO PRN (17:28)
[2020-04-12 17:33] VITALS: BP 154/88
[2020-04-12 20:00] VITALS: BP 138/80
[2020-04-12] MEDS: TAMSULOSIN 0.4 MG CAP PO SCH (20:09)
[2020-04-12] MEDS: ATORVASTATIN 20 MG TAB PO SCH (20:09)
[2020-04-12] MEDS: ACETAMINOPHEN 325 MG TAB PO PRN (20:10)
[2020-04-12] MEDS: busPIRone 10 MG TAB PO SCH (20:12)
[2020-04-12] MEDS ORDERED: HumaLOG INSULIN (NovoLOG) PER UNIT SC SCH (21:00)
[2020-04-13] VITALS: BP 156/88
[2020-04-13] MEDS: HYDROCORTISONE 100 MG/2 ML VIAL (J1720 PER 1) IV SCH ×3 (00:11→16:07)
[2020-04-13] MEDS: ANEXSIA, NORCO 7.5MG/325MG TABLET(HYDROCODONE/APAP) PO PRN (00:11)
[2020-04-13] MEDS: PIPERACILLIN/TAZOBACTAM SOD 3.375 GM in D5W MINI-BAG PLUS 50 ML IV SCH (03:48)
[2020-04-13 04:00] VITALS: BP 138/84
[2020-04-13 05:36] LABS: BASO % 0.2 % (0.0-1.0); HEMATOCRIT 30.2 % (42.0-52.0); HEMOGLOBIN 9.7 g/dl (13.5-17.5); LYMPH # 0.5 10^3/uL (1.5-5.0); LYMPH % 10.2 % (24.0-44.0); MEAN CORPUSCULAR HGB CONC 32.1 g/dl (32.0-36.5); MEAN CORPUSCULAR VOLUME 90.4 fl (80.0-96.0); MONO # 0.4 10^3/uL (0.0-0.8); MONO % 7.4 % (0.0-5.0); NEUTROPHILS # 4.1 10^3/uL (1.5-8.5); NEUTROPHILS % 81.2 % (36.0-66.0); PLATELET COUNT, AUTOMATED 184 10^3/uL (150-450); RED BLOOD COUNT 3.34 10^6/uL (4.30-6.10)
[2020-04-13 06:03] LABS: ALBUMIN 2.3 GM/DL (3.2-5.2); ALT/SGPT 46 U/L (12-78); BILIRUBIN,TOTAL 0.8 MG/DL (0.2-1.0); BLOOD UREA NITROGEN 30 MG/DL (7-18); CALCIUM LEVEL 8.3 MG/DL (8.8-10.2); CARBON DIOXIDE LEVEL 24 MEQ/L (21-32); CHLORIDE LEVEL 110 MEQ/L (98-107); CREATININE FOR GFR 1.16 MG/DL (0.70-1.30); GLOMERULAR FILTRATION RATE > 60.0 (>42); GLUCOSE, FASTING 126 MG/DL (70-100); POTASSIUM SERUM 3.1 MEQ/L (3.5-5.1); SODIUM LEVEL 140 MEQ/L (136-145); TOTAL PROTEIN 5.1 GM/DL (6.4-8.2)
[2020-04-13 08:00] VITALS: BP 152/88
[2020-04-13] MEDS ORDERED: CEPHALEXIN 500 MG CAP PO SCH (09:00)
[2020-04-13] MEDS ORDERED: LACTOBACILLUS ACIDOPHILUS CAP (BACID) PO SCH (09:00)
[2020-04-13] MEDS: HEPARIN SOD (PORCINE) 5000UNITS/ML 1ML VIAL/SYRINGE SC SCH (09:02)
[2020-04-13] MEDS: FLUoxetine 20 MG CAP PO SCH (09:04)
[2020-04-13] MEDS: FEBUXOSTAT 40 MG TABLET (ULORIC) PO SCH (09:04)
[2020-04-13] MEDS: HumaLOG INSULIN (NovoLOG) PER UNIT SC SCH ×3 (09:04→17:28)
[2020-04-13] MEDS: oxyBUTYnin *DITROPAN XL* 5 MG TABCR PO SCH (09:05)
[2020-04-13 09:06] VITALS: BP 152/88
[2020-04-13] MEDS: POTASSIUM CHLORIDE 10 MEQ SR TABLET PO SCH ×2 (09:06→11:19)
[2020-04-13] MEDS: OMEPRAZOLE 20 MG CAP PO SCH (09:06)
[2020-04-13] MEDS: busPIRone 5 MG TAB PO SCH (09:06)
[2020-04-13] MEDS: METOPROLOL TART 12.5 MG PER 1/2 TAB PO SCH (09:06)
[2020-04-13] MEDS: FERROUS GLUCONATE 324 MG TAB PO SCH ×2 (09:07→17:28)
[2020-04-13] MEDS: NYSTATIN CREAM 15 GM TOP SCH (09:08)
[2020-04-13] MEDS ORDERED: CEFD300CAP PO (10:09)
[2020-04-13] MEDS ORDERED: LINE1TAB6 PO ×2 (10:09→12:58)
[2020-04-13] MEDS ORDERED: FIRV50SO PO ×2 (10:09→12:58)
[2020-04-13] MEDS ORDERED: SLF 3 ML SYR IV PRN (10:15)
[2020-04-13] MEDS: ACETAMINOPHEN 325 MG TAB PO PRN (11:18)
[2020-04-13] MEDS: VANCOMYCIN ORAL SOL 250MG/5ML ORAL SYRINGE PO SCH ×2 (11:19→17:28)
[2020-04-13] MEDS ORDERED: KEFL500C17 PO (12:58)
[2020-04-13] MEDS ORDERED: FLUO40CA PO (13:17)
[2020-04-13] MEDS ORDERED: SLF 3 ML SYR IV SCH (14:00)
--- NOTE | 2020-04-13 18:32 | DS.PDOC ---
Discharge Summary General Date of Admission Apr 08, 2020 at 22:07 Date of Discharge Apr 13, 2020 Attending Physician: JESSICA MARCIAL MD Specialist/Consultants Involve: CARMEN SCHILLING MD Specialist/Consultants Involve Zeke Lezama Discharge Summary PROCEDURES PERFORMED DURING STAY: None. ADMITTING DIAGNOSES: 1. Sepsis secondary to acute cholangitis vs cholecystitis 2. Diarrhea 3. Adrenal insufficiency 4. Atrial fibrillation 5. Coronary artery disease 6. Diastolic CHF 7. Lupus with chronic interstitial lung disease. DISCHARGE DIAGNOSES: 1. Atrial fibrillation 2. Coronary artery disease 3. Diastolic CHF 4. Lupus with chronic interstitial lung disease COMPLICATIONS/CHIEF COMPLAINT: Sepsis, Cholecystitis. HISTORY OF PRESENT ILLNESS: 77-year-old male patient who presented to the emergency department with altered mental status, diffuse abdominal pain. Upon evaluation in the emergency department he has leukocytosis, fever, tachycardia and dyspnea elevated bilirubin level, transaminases, alkaline phosphatase, l actic acid and creatinine. HOSPITAL COURSE: Was admitted to the hospital, imaging was done showing hydropic gallbladder with no gallbladder wall thickening, CBD dilatation of 1.5 cm without choledo cholithiasis. GI was consulted for ERCP, but patient at that point of time is a high risk patient for anesthesia because of his chronic lung and heart problems. Later interventional radiology was consulted for a possible percutaneous drain next morning. He was NPO over night. He was on IV antibiotics. On repeat of labs the next morning all his labs were improving indicating that stone likely has p assed. His labs continue to get better over the couple of days. Patient was switched from clear liquid diets to carbohydrate diet and tolerated well. He was switched to oral medications. Later Blood cultures drawn during that admission later grew Escherichia coli and enterococcus feacium pending sensitivities and urine cultures growing Escherichia coli as a result of which he was switched back to IV antibiotics. Starting from the hospitalization patient was having loose bowel movements 10-12 per day, FOBT negative and GI panel was positive for C. difficile. From that point of time patient was started on by mouth vancomycin. As the sensitivities from blood cultures were back he was on linezol id and Keflex by mouth. Patient was advised about the risk of serotonin syndrome; advised of possible symptoms and next steps. He has verbalized understanding. Of note: Patient had colonoscopy done in [address] Schilling, and reported to have large polyp removed and pathology reported as tubular adenoma. A shunt was recommended to get a repeat colonoscopy done in 1 year. As per the patient he never got the repeat colonoscopy done but was contacted and was putting it off because he felt uncomfortable the first time. As his blood cultures were growing enterococcus species strongly recommend him to get his colonoscopy done as soon as possible to rule out colon cancer. DISCHARGE MEDICATIONS: Please see below. ALLERGIES: Please see below. PHYSICAL EXAMINATION ON DISCHARGE: VITAL SIGNS: Please see below. General: Well developed, built: normal, Patient is awake, alert, oriented times three, sitting on bed , no apparent distress. Eyes: Conjunctiva clear, pupils equal round and reactive to light and accommodation. EOM full, Fundus: not visualized. Cardiovascular: S1, S2, normal rhythm, no murmur, rub, or gallop. Pulses: Carotid, radial, posterior tibialis and pedal 3+ symmetric, no edema. Respiratory: Chest is clear to auscultation bilaterally, No rhonchi, wheezes or rubs. Abdomen: Soft, bowel sounds positive, no bruits. No tenderness, no rigidity or guarding during palpation. Extremities: No clubbing or cyanosis. No edema, no tenderness. Central nervous system (CREDIT CONTROLLER): Awake, alert and fully oriented. Skin: Heparin injection side bruising noted in the abdomen. LABORATORY DATA: Please see below. IMAGING: Head CT: Impression: Reported as No acute intracranial pathology demonstrated on CT. CT angiogram: Impression: Reported as Increased interstitial markings de monstrated peripherally bilateral consistent with interstitial lung disease. No segmental or lobar infiltration. No aortic dissection or aneurysm. Motion artifact limited evaluation of small pulmonary arteries. No large central pulmonary embolism demonstrated. CT abdomen/pelvis with IV contrast: Impression: Reported as Hydropic gallbladder. No gallbladder wall thickening or visible calculi demonstrated. Thickened wall of the rectum clinical correlation to exclude neoplasm suggestive. Mild splenomegaly with maximum span of 13.6 cm no focal abnormalities demonstrated. Gallbladder ultrasound: Impression: Reported as Hydropic gallbladder, sludge within the lumen of the gallbladder no calculus demonstrated. CBD dilated and measures 1.5 cm no mass or choledocholithiasis. MRI abdomen without contrast. MRCP: Impression: Reported as Distended gallbladder, extrahepatic and mild intrahepatic biliary ductal dilation with distant choledocholithiasis. Mild pericholecystic and perihepatic fluid. Infrarenal abdominal aortic aneurysm. PROGNOSIS: Good ACTIVITY: As tolerated. DIET: As tolerated DISCHARGE PLAN: Follow up with the PCP in 3-5 days DISPOSITION: . DISCHARGE INSTRUCTIONS: 1. Continue taking antibiotic vancomycin by mouth for C. difficile for 10 days. 2. Continue taking antibiotic linezolid by mouth for 10 days 3. Continue taking antibiotic Keflex by mouth for 10 days. 4. Patient was prescribed and instructed to take fluoxetine[SSRI] half dose(40 MG) as it has an interaction with linezolid for causing serotonin syndrome. 5. Patient was made aware of the symptoms of serotonin syndrome, and instructed to stop medication and report to emergency department if having any of the symptoms. ITEMS TO FOLLOWUP ON ON OUTPATIENT: 1. Follow-up with PCP in 3-5 days. 2. Follow-up with GI or surgery to get the repeat colonoscopy. DISCHARGE CONDITION: Stable. TIME SPENT ON DISCHARGE: 40 minutes. Vital Signs/I&Os Vital Signs Date Time Temp Pulse Resp B/P (MAP) Pulse Ox O2 Delivery O2 Flow Rate FiO2 04/13/20 09:06 71 152/88 04/13/20 08:00 97.3 17 94 Room Air 04/12/20 12:00 4.0 I&O- Last 24 Hours up to 6 AM 04/13/20 06:00 Intake Total 790 ml Output Total 1000 ml Balance -210 ml Laboratory Data Labs 24H Laboratory Tests 2 04/12/20 20:15: Bedside Glucose (Misc Panel) 124H 04/13/20 05:20: Anion Gap 6L, Glomerular Filtration Rate > 60.0, Calcium Level 8.3L, Total Bilirubin 0.8, Aspartate Amino Transf (AST/SGOT) 21, Alanine Aminotransferase (ALT/SGPT) 46, Alkaline Phosphatase 244H, Total Protein 5.1L, Albumin 2.3L, Albumin/Globulin Ratio 0.8 04/13/20 05:21: Immature Granulocyte % (Auto) 1.0, Neutrophils (%) (Auto) 81.2H, Lymphocytes (%) (Auto) 10.2L, Monocytes (%) (Auto) 7.4H, Eosinophils (%) (Auto) 0.0, Basophils (%) (Auto) 0.2, Neutrophils # (Auto) 4.1, Lymphocytes # (Auto) 0.5L, Monocytes # (Auto) 0.4, Eosinophils # (Auto) 0.0, Basophils # (Auto) 0.0, Nucleated Red Blood Cells % (auto) 0.0 04/13/20 11:55: Bedside Glucose (Misc Panel) 113H CBC/BMP Laboratory Tests 04/13/20 05:20 04/13/20 05:21 FSBS Laboratory Tests Test 04/12/20 20:15 04/13/20 11:55 Range/Units Bedside Glucose (Misc Panel) 124 113 83-110 MG/DL Microbiology Microbiology 04/11/20 Campylobacter (PCR) - Final, Complete 04/11/20 Clostridium difficile Toxin A&B PCR - Final, Complete 04/11/20 Plesiomonas shigelloides (PCR) - Final, Complete 04/11/20 Salmonella (PCR)(DANNY) - Final, Complete 04/11/20 Vibrio Species (PCR) - Final, Complete 04/11/20 Vibrio Cholerae (PCR) - Final, Complete 04/11/20 Yersinia enterocolitica (PCR) - Final, Complete 04/11/20 Enteroaggregative E. coli (PCR) - Final, Complete 04/11/20 Enteropathogenic E. coli (PCR) - Final, Complete 04/11/20 Enterotoxigenic E. coli (PCR) - Final, Complete 04/11/20 E. coli Shiga-like Toxin (PCR) - Final, Complete 04/11/20 Escherichia coli 0157 (PCR) - Final, Complete 04/11/20 Enteroinvasive E. coli/Shigella PCR - Final, Complete 04/11/20 Cryptosporidium (PCR) - Final, Complete 04/11/20 Cyclospora cayetanensis (PCR) - Final, Complete 04/11/20 Entamoeba histolytica (PCR) - Final, Complete 04/11/20 Giardia lamblia (PCR) - Final, Complete 04/11/20 Adenovirus Type F 40/41 (PCR) - Final, Complete 04/11/20 Astrovirus (PCR) - Final, Complete 04/11/20 Norovirus GI/GII (PCR) - Final, Complete 04/11/20 Rotavirus A (PCR) - Final, Complete 04/11/20 Sapovirus I/II/IV/V (PCR) - Final, Complete 04/10/20 Stool Occult Blood (DANNY) - Final, Complete 04/08/20 Blood Culture - Preliminary, Resulted Escherichia Coli Enterococcus Faecium 04/08/20 Blood Culture - Final, Complete Escherichia Coli 04/08/20 Urine Culture - Final, Complete Escherichia Coli Discharge Medications Scheduled Acarbose (Acarbose) 25 Mg Tab, 25 MG PO ACP, (Reported) Apixaban (Eliquis) 5 Mg Tablet, 5 MG PO BID, (Reported) Atorvastatin Calcium (Atorvastatin Calcium) 40 Mg Tablet, 20 MG PO QHS, (Reported) Buspirone HCl (Buspirone HCl) 10 Mg Tablet, 10 MG PO QHS, (Reported) Buspirone HCl (Buspirone HCl) 10 Mg Tablet, 5 MG PO QAM, (Reported) Calcium Carbonate/Vitamin D3 (Calcium 600-Vit D3 400 Tablet) 1 Each Tablet, 1 TAB PO BID, (Reported) Cephalexin (Keflex) 500 Mg Capsule, 1 CAP PO TID Cholecalciferol (Vitamin D3) (Vitamin D3) 1,000 Unit Tablet, 1,000 UNITS PO DAILY, (Reported) Cyanocobalamin (Vitamin B-12) (Vitamin B-12) 1,000 Mcg Tab, 1,000 MCG PO DAILY, (Reported) Epoetin Carson (Procrit) 20,000 Unit/Ml Inj, 20,000 UNIT SC Q2WK, (Reported) Ergocalciferol (Vitamin D2) (Vitamin D2) 50,000 Units Cap, 50,000 UNITS PO QWEEK, (Reported) WEDNESDAYS Febuxostat (Uloric) 80 Mg Tab, 80 MG PO DAILY, (Reported) Ferrous Gluconate (Ferrous Gluconate) 324 Mg Tab, 324 MG PO BIDWM, (Reported) Fluoxetine Hcl (Fluoxetine HCl) 40 Mg Capsule, 40 MG PO DAILY Gabapentin (Gabapentin) 600 Mg Tablet, 600 MG PO BID, (Reported) Hydrocortisone (Hydrocortisone) 20 Mg Tablet, 20 MG PO QAM, (Reported) Hydrocortisone (Hydrocortisone) 20 Mg Tablet, 10 MG PO QPM, (Reported) L.acidoph/L.bulg/B.bif/S.therm (Bacid Caplet) 1 Tab Tab, 1 TAB PO DAILY, (Reported) Linezolid (Linezolid) 600 Mg Tablet, 600 MG PO BID antibiotics Magnesium Chloride (Slow-Mag) 1 Tab Tab, 1 TAB PO DAILY, (Reported) TAKES AT 1200 Metoprolol Succinate (Metoprolol Succinate) 50 Mg Tab.er.24h, 25 MG PO DAILY, (Reported) Multivitamins (Thera M Plus Tablet) 1 Tab Tab, 1 TAB PO DAILY, (Reported) Omeprazole (Omeprazole) 20 Mg Tablet.dr, 40 MG PO BID, (Reported) Oxybutynin Chloride (Oxybutynin Chloride ER) 15 Mg Tab, 15 MG PO DAILY, (Reported) Spironolactone (Spironolactone) 25 Mg Tablet, 25 MG PO DAILY, (Reported) Tamsulosin HCl (Flomax) 0.4 Mg Cap, 0.4 MG PO QPM, (Reported) Torsemide (Torsemide) 20 Mg Tablet, 20 MG PO BID, (Reported) 0900 and 1700 Vancomycin HCl (Firvanq) 50 Mg/1 Ml Soln.recon, 250 MG PO Q6H antibiotics Scheduled PRN Acetaminophen (Acetaminophen) 325 Mg Tablet, 325 MG PO Q8H PRN for PAIN, (Reported) Albuterol Sulf (Albuterol Sulfate) 2.5 Mg/3 Ml Nebu, 2.5 MG INH Q4H PRN for SHORTNESS OF BREATH, (Reported) Albuterol Sulfate (Proair Hfa) 108 Mcg/Act Aer, 1 PUFF INH Q4H PRN for SHORTNESS OF BREATH, (Reported) Ammonium Lactate (Ammonium Lactate) 12% Cream..g., 1 DOSE TOP DAILY PRN for DRY SKIN, (Reported) Dextran/Hypromellose (Genteal Tears 0.1%-0.3% Drop) 15 Ml Drops, 1 DROP OU QID PRN for DRY EYES, (Reported) Hydrocodone/Acetaminophen (Hydrocodone-Acetamin 7.5-325) 1 Each Tablet, 1 TAB PO QID PRN for PAIN, (Reported) Nitroglycerin (Nitrostat) 0.4 Mg Subl, 0.4 MG SL NITRO PRN for CHEST PAIN, (Reported) Zolpidem Tartrate (Zolpidem Tartrate) 5 Mg Tablet, 5 MG PO QHS PRN for SLEEP, (Reported) Miscellaneous Medications [med rec comment] , (Reported) verified with [facility] Allerg[facility] Coded Allergies: allopurinol (Verified Allergy, Mild, itching, 06/25/19) GME ATTESTATION GME ATTESTATION My faculty preceptor for this patient encounter was physically present during the encounter and was fully available. All aspects of the patient interview, examination, medical decision making process, and medical care plan development were reviewed and approved by the faculty preceptor. The faculty preceptor is aware and concurs with the plan as stated in the body of this note and will attest to such by his/her cosignature. ATTENDING NOTE I, Jessica Marcial, have independently examined this patient and performed my own physical exam, as well as reviewed the documentation and edited where necessary. I have discussed in detail with the resident / student the findings and plan of treatment as documented by the resident / student and edited their note. I agree with their findings and treatment plan and have edited their documentation. I will continue to follow the patient during this hospital stay. Time spent on discharge 36 minutes Oliver Alan MD Apr 13, 2020 18:32 JESSICA MARCIAL MD Apr 15, 2020 11:52
[2020-04-13] MEDS ORDERED: CEFDINIR 300 MG CAP (OMNICEF) PO SCH (21:00)
[2020-04-13] MEDS ORDERED: LINEZOLID 600MG TABLET (ZYVOX) PO SCH (21:00)
== END 2020-04-13 18:08 | disposition home or self-care (01) | DRG 871 ==
LOC: EDBD 17:49 → M ED 17:49 → M ED INP 22:07 → ENRESERV 22:34 → M ICU 23:48 → M PCU 04-10 06:25
PROVIDERS: ADMIT Internal Medicine; ATTEND Internal Medicine
DX: A41.9 Sepsis, unspecified organism (principal); G93.41 Metabolic encephalopathy; K80.32 Calculus of bile duct with acute cholangitis without obstruction; E27.40 Unspecified adrenocortical insufficiency; N17.9 Acute kidney failure, unspecified; I48.20 Chronic atrial fibrillation, unspecified; N39.0 Urinary tract infection, site not specified; I50.32 Chronic diastolic (congestive) heart failure; J96.11 Chronic respiratory failure with hypoxia; N18.30 Chronic kidney disease, stage 3 unspecified; I25.10 Atherosclerotic heart disease of native coronary artery without angina pectoris; Z79.899 Other long term (current) drug therapy; Z88.8 Allergy status to other drugs, medicaments and biological substances; E11.9 Type 2 diabetes mellitus without complications; N40.0 Benign prostatic hyperplasia without lower urinary tract symptoms; K21.9 Gastro-esophageal reflux disease without esophagitis; F43.10 Post-traumatic stress disorder, unspecified; Z87.891 Personal history of nicotine dependence

== ENCOUNTER 2020-05-03 10:58 | Inpatient (IN) | payer OTHER ==
[~2020-05-03] VITALS: Ht 172.7 cm; Wt 100.3 kg
[~2020-05-03 10:58] MED LIST changes: +BUSP10TA PO; +D31000TA2 PO; +FIRV50SO PO; +FLUO40CA PO; +HYDR-4514 PO; +KEFL500C17 PO; +LINE1TAB6 PO; +med rec comment
[2020-05-03] MEDS ORDERED: NS 500 ML IV ONE (11:30)
[2020-05-03 11:39] LABS: BASO % 0.3 % (0.0-1.0); EOS % 0.3 % (0.0-3.0); HEMATOCRIT 28.3 % (42.0-52.0); HEMOGLOBIN 8.8 g/dl (13.5-17.5); LYMPH # 1.2 10^3/uL (1.5-5.0); LYMPH % 17.3 % (24.0-44.0); MEAN CORPUSCULAR HEMOGLOBIN 28.6 pg (27.0-33.0); MEAN CORPUSCULAR HGB CONC 31.1 g/dl (32.0-36.5); MEAN CORPUSCULAR VOLUME 91.9 fl (80.0-96.0); MONO # 1.2 10^3/uL (0.0-0.8); MONO % 17.7 % (0.0-5.0); NEUTROPHILS # 4.3 10^3/uL (1.5-8.5); NEUTROPHILS % 63.9 % (36.0-66.0); PLATELET COUNT, AUTOMATED 228 10^3/uL (150-450); RED BLOOD COUNT 3.08 10^6/uL (4.30-6.10); WHITE BLOOD COUNT 6.7 10^3/uL (4.0-10.0)
[2020-05-03 11:57] LABS: ALBUMIN 3.1 GM/DL (3.2-5.2); ALT/SGPT 45 U/L (12-78); BILIRUBIN,DIRECT 0.5 MG/DL (0.0-0.2); BLOOD UREA NITROGEN 9 MG/DL (7-18); CALCIUM LEVEL 9.1 MG/DL (8.8-10.2); CARBON DIOXIDE LEVEL 32 MEQ/L (21-32); CHLORIDE LEVEL 102 MEQ/L (98-107); GLOMERULAR FILTRATION RATE > 60.0 (>42); GLUCOSE, FASTING 102 MG/DL (70-100); LIPASE 80 U/L (73-393); POTASSIUM SERUM 3.6 MEQ/L (3.5-5.1); SODIUM LEVEL 138 MEQ/L (136-145); TOTAL PROTEIN 6.2 GM/DL (6.4-8.2)
[2020-05-03] MEDS ORDERED: ISOVUE-370 76% 100ML VIAL As Ordered ONE (12:06)
[2020-05-03] MEDS ORDERED: VANCOMYCIN ORAL SOL 250MG/5ML ORAL SYRINGE PO ONE (12:30)
--- NOTE | 2020-05-03 12:38 | REP ---
INDICATION: C Diff colitis. COMPARISON: Comparison CT study is from April 08, 2020.. TECHNIQUE: Helical scanning was acquired and 4 mm axial images are re-formatted. Coronal and sagittal MPR images were generated and reviewed. The contrast enhancement dose is 100 mL of intravenous Isovue 370. FINDINGS: Preliminary digital console operator radiograph demonstrates an ileus pattern in the bowel gas with the gaseous distention of multiple large and small bowel loops throughout the abdomen. On axial CT images, there are small bilateral pleural effusions and there is advanced COPD pulmonary fibrosis in the lung bases. Cardiomegaly is observed. Vascular calcification is noted. No pericardial effusion is appreciated. Normal adrenal glands are seen. There is an accessory splenule along the inferior margin of the spleen unchanged. No focal hepatic or splenic lesion is observed. Spleen size is borderline as before. No abnormality is noted in the pancreas. The gallbladder has decreased in size since the prior study. There is 1 focal area of increased density on its dependent wall question tiny gallstone. Kidneys enhance symmetrically and are morphologically intact. No obstructive gastrointestinal lesion is seen. No mass or adenopathy is noted. There is postsurgical changes in the right inguinal soft tissues. There are two normal appearing right external iliac lymph nodes. Normal size bilateral inguinal lymph nodes are seen. Seminal vesicles prostate and urinary bladder are unremarkable. There is no evidence of free intraperitoneal air. Air and liquid is confirmed in the small intestine and large intestinal bowel loops. No obstructive lesion is seen. There is mild diverticulosis in the sigmoid colon. No mural thickening is seen. IMPRESSION: Ileus/enteritis pattern in the bowel gas. This appears somewhat improved from April 08, 2020 although similar. No mural thickening is seen. No evidence of free air or abdominal fluid collection. Left colonic diverticulosis. Small bilateral pleural effusions and cardiomegaly. Question tiny gallstone. Otherwise no acute abnormality. <Electronically signed by Sergio Brown > 05/03/20 [id number]
[2020-05-03] MEDS ORDERED: ACET500T15 PO (13:26)
[2020-05-03] MEDS ORDERED: TORS10TA3 PO (13:26)
[2020-05-03] MEDS ORDERED: FAMO20TA PO (13:27)
[2020-05-03] MEDS ORDERED: GLUC1LIQ18 PO (13:27)
[2020-05-03] MEDS ORDERED: FLUO20CA20 PO (13:27)
[2020-05-03] MEDS ORDERED: APIXABAN 5 MG TAB (ELIQUIS) PO ONE (13:30)
[2020-05-03] MEDS ORDERED: SPIRONOLACTONE 25 MG TAB PO ONE (13:30)
[2020-05-03] MEDS ORDERED: TORSEMIDE 20 MG TAB PO ONE (13:30)
[2020-05-03] MEDS ORDERED: METOPROLOL SUCC *XL* 25MG TAB (TopROL *XL*) PO ONE (13:30)
--- NOTE | 2020-05-03 13:38 | HPEPDOC ---
[facility] Medical History & Physical Date of Admission May 03, 2020 Date of Service: May 03, 2020 History and Physical CHIEF COMPLAINT: Abdominal Pain HISTORY OF PRESENT ILLNESS: 74M presents for several day history of worsening abdominal pain, nausea and diarrhea. He was recently discharged from the hospital where he also presented for abdominal pain, was found to be septic with possibly cholecystis. He was managed without surgical intervention given his high surgical risk. He did improve, however his hospital stay was complicated with C Diff colitis, and bacteremia. He was discharged home with oral antibiotics. He recently completed his antibiotic therapy about one week prior to his return to the ED. He denies chest pain, shortness of breath, headaches, vomiting. PAST MEDICAL HISTORY: #recent CDiff #Adrenal insufficiency #Atrial fibrillation # Coronary artery disease #HFpEF #Lupus with chronic interstitial lung disease. ALLERGIES: Please see below. REVIEW OF SYSTEMS: Negative except as per HPI. HOME MEDICATIONS: Please see below. PHYSICAL EXAMINATION: VITAL SIGNS: See below General: NAD, lying comfortably in bed HEENT: NC/AT, EOMI Lungs: CTA B/L Abd: soft, NT, +BS Ext: no edema LABORATORY DATA: See below. MICROBIOLOGY: Please see below. ASSESSMENT: 74 yo male with multiple hospital admissions, most recently discharged 04/13/20 for sepsis/cholecystitis returns for abdominal pain with diarrhea. PLAN: #abdominal pain/diarrhea - clear liquids for now - GI panel pending #recurrent CDiff - recently completed oral vancomycin therapy - check GI panel #Adrenal insufficiency - continue home dosage hydrocortisone #Atrial fibrillation - continue Eliquis/metoprolol # Coronary artery disease - continue statin/BB #HFpEF - continue aldactone, demadex #BPH - flomax #depression - continue prozac #GERD - pepcid #Lupus with chronic interstitial lung disease. #DVT prophylaxis - continue eliquis as above Vital Signs Vital Signs Date Time Temp Pulse Resp B/P (MAP) Pulse Ox O2 Delivery O2 Flow Rate FiO2 05/03/20 13:16 97.0 80 21 152/94 (113) 97 Nasal Cannula 4.0 Laboratory Data Labs 24H Laboratory Tests 2 05/03/20 11:22: Immature Granulocyte % (Auto) 0.5, Neutrophils (%) (Auto) 63.9, Lymphocytes (%) (Auto) 17.3L, Monocytes (%) (Auto) 17.7H, Eosinophils (%) (Auto) 0.3, Basophils (%) (Auto) 0.3, Neutrophils # (Auto) 4.3, Lymphocytes # (Auto) 1.2L, Monocytes # (Auto) 1.2H, Eosinophils # (Auto) 0.0, Basophils # (Auto) 0.0, Nucleated Red Blood Cells % (auto) 0.0, Anion Gap 4L, Glomerular Filtration Rate > 60.0, Lactic Acid Level 1.1, Calcium Level 9.1, Total Bilirubin 1.0, Direct Bilirubin 0.5H, Aspartate Amino Transf (AST/SGOT) 14, Alanine Aminotransferase (ALT/SGPT) 45, Alkaline Phosphatase 326H, Total Protein 6.2L, Albumin 3.1L, Albumin/Globulin Ratio 1.0, Lipase 80 05/03/20 11:23: Coronavirus (COVID-19)(PCR) NEGATIVE CBC/BMP Laboratory Tests 05/03/20 11:22 Home Medications Scheduled Acarbose (Acarbose) 25 Mg Tab, 25 MG PO ACB Apixaban (Eliquis) 5 Mg Tablet, 5 MG PO BID Atorvastatin Calcium (Atorvastatin Calcium) 40 Mg Tablet, 20 MG PO QHS Buspirone HCl (Buspirone HCl) 10 Mg Tablet, 10 MG PO QHS Buspirone HCl (Buspirone HCl) 10 Mg Tablet, 5 MG PO QAM Calcium Carbonate/Vitamin D3 (Calcium 600-Vit D3 400 Tablet) 1 Each Tablet, 1 TAB PO BID Cholecalciferol (Vitamin D3) (Vitamin D3) 1,000 Unit Tablet, 1,000 UNITS PO DAILY Cyanocobalamin (Vitamin B-12) (Vitamin B-12) 1,000 Mcg Tab, 1,000 MCG PO DAILY Epoetin Carson (Procrit) 20,000 Unit/Ml Inj, 20,000 UNIT SC Q2WK Ergocalciferol (Vitamin D2) (Vitamin D2) 50,000 Units Cap, 50,000 UNITS PO QWEEK WEDNESDAYS Famotidine (Famotidine) 20 Mg Tablet, 20 MG PO BID Febuxostat (Uloric) 80 Mg Tab, 80 MG PO DAILY Ferrous Gluconate (Ferrous Gluconate) 324 Mg Tab, 324 MG PO BIDWM Fluoxetine Hcl (Fluoxetine HCl) 20 Mg Capsule, 80 MG PO DAILY Gabapentin (Gabapentin) 600 Mg Tablet, 600 MG PO BID Hydrocortisone (Hydrocortisone) 20 Mg Tablet, 20 MG PO QAM Hydrocortisone (Hydrocortisone) 20 Mg Tablet, 10 MG PO QPM L.acidoph/L.bulg/B.bif/S.therm (Bacid Caplet) 1 Tab Tab, 1 TAB PO DAILY Magnesium Chloride (Slow-Mag) 1 Tab Tab, 1 TAB PO DAILY TAKES AT 1200 Metoprolol Succinate (Metoprolol Succinate) 50 Mg Tab.er.24h, 25 MG PO DAILY Multivitamins (Thera M Plus Tablet) 1 Tab Tab, 1 TAB PO DAILY Nut.tx.gluc.intoler,Lac-Fr,Soy (Glucerna Therapeutic Nutrition) 237 Ml Liquid, 237 ML PO DAILY Omeprazole (Omeprazole) 20 Mg Tablet.dr, 40 MG PO BID Oxybutynin Chloride (Oxybutynin Chloride ER) 15 Mg Tab, 15 MG PO DAILY Spironolactone (Spironolactone) 25 Mg Tablet, 25 MG PO DAILY Tamsulosin HCl (Flomax) 0.4 Mg Cap, 0.4 MG PO QPM Torsemide (Torsemide) 10 Mg Tablet, 30 MG PO BID 0900/1700 Vancomycin HCl (Vancocin HCl) 250 Mg Capsule, 1 CAP PO QID Vancomycin HCl (Vancocin HCl) 250 Mg Capsule, 1 CAP PO QID Scheduled PRN Acetaminophen (Acetaminophen) 500 Mg Tablet, 500 MG PO Q8H PRN for PAIN Albuterol Sulf (Albuterol Sulfate) 2.5 Mg/3 Ml Nebu, 2.5 MG INH Q4H PRN for SHORTNESS OF BREATH Albuterol Sulfate (Proair Hfa) 108 Mcg/Act Aer, 1 PUFF INH Q4H PRN for SHORTNESS OF BREATH Ammonium Lactate (Ammonium Lactate) 12% Cream..g., 1 DOSE TOP DAILY PRN for DRY SKIN APPLY TO HEELS Dextran/Hypromellose (Genteal Tears 0.1%-0.3% Drop) 15 Ml Drops, 1 DROP OU QID PRN for DRY EYES Hydrocodone/Acetaminophen (Hydrocodone-Acetamin 7.5-325) 1 Each Tablet, 1 TAB PO QID PRN for PAIN Nitroglycerin (Nitrostat) 0.4 Mg Subl, 0.4 MG SL NITRO PRN for CHEST PAIN Zolpidem Tartrate (Zolpidem Tartrate) 5 Mg Tablet, 5 MG PO QHS PRN for SLEEP Allergies Coded Allergies: allopurinol (Verified Allergy, Mild, itching, 1/4/20) A-FIB/CHADSVASC A-FIB History Current/History of A-Fib/PAF?: Yes Current PO Anticoag Therapy: Yes BRENDON JONES MD May 03, 2020 13:38
[2020-05-03] MEDS ORDERED: ALBUTEROL 90 MCG/ACT 8GM HFA INHALER INH PRN (13:45)
[2020-05-03] MEDS ORDERED: LACTIC ACID 12% LOTION 225 GM BTL TOP PRN (13:45)
[2020-05-03] MEDS ORDERED: ALBUTEROL SULFATE 2.5 MG/0.5 ML INH NEB SOLN INH PRN (13:45)
[2020-05-03] MEDS ORDERED: ACETAMINOPHEN 500 MG TAB PO PRN (13:45)
[2020-05-03] MEDS: NS 1,000 ML IV SCH (14:46)
[2020-05-03] MEDS: ANEXSIA, NORCO 7.5MG/325MG TABLET(HYDROCODONE/APAP) PO PRN ×2 (16:01→20:35)
[2020-05-03] MEDS: hydrALAZINE 20MG/ML 1ML VIAL (J0360 PER 20MG) IV SCH (18:13)
--- NOTE | 2020-05-03 19:02 | ECGEPIP ---
[facility] - ED Test Date: 2020-05-03 Pat Name: ERICK SHELBY Department: Room: - Gender: Male Banking Representative: ADALI : 1945 Requested By: Jamie Mancia Order Number: [id number] Reading MD: Jade Erickson Measurements Intervals [place] Rate: 70 P: GA: 0 QRS: -13 QRSD: 108 T: -23 QT: 428 QTc: 464 Interpretive Statements ATRIAL FIBRILLATION WITH ABERRANT CONDUCTION OR VENTRICULAR PREMATURE COMPLEXES POSSIBLE ANTERIOR MYOCARDIAL INFARCTION, OF INDETERMINATE AGE NSTTW abnormalities DECREASED RATE 04/08/20 Electronically Signed on 05-03-2020 19:01:59 EST by Jade Erickson
[2020-05-03 20:00] VITALS: BP 145/73
[2020-05-03] MEDS: FAMOTIDINE 20 MG TAB PO SCH (20:23)
[2020-05-03] MEDS: APIXABAN 5 MG TAB (ELIQUIS) PO SCH (20:23)
[2020-05-03] MEDS: OMEPRAZOLE 20 MG CAP PO SCH (20:23)
[2020-05-03] MEDS: GABAPENTIN 300 MG CAP PO SCH (20:23)
[2020-05-03] MEDS: TAMSULOSIN 0.4 MG CAP PO SCH (20:23)
[2020-05-03] MEDS: ATORVASTATIN 20 MG TAB PO SCH (20:24)
[2020-05-03] MEDS: busPIRone 10 MG TAB PO SCH (20:33)
[2020-05-03] MEDS: zolPIDEM TARTRATE 5 MG TAB PO PRN (20:33)
[2020-05-03] MEDS: HYDROCORTISONE 10 MG TAB PO SCH (20:33)
[2020-05-03] MEDS: FERROUS GLUCONATE 324 MG TAB PO SCH (20:33)
[2020-05-04] VITALS: BP 156/93
[2020-05-04] MEDS: NS 1,000 ML IV SCH ×2 (01:23→11:44)
[2020-05-04] MEDS: hydrALAZINE 20MG/ML 1ML VIAL (J0360 PER 20MG) IV SCH ×4 (05:54→17:50)
[2020-05-04 06:19] LABS: ALBUMIN 2.8 GM/DL (3.2-5.2); ALT/SGPT 33 U/L (12-78); BLOOD UREA NITROGEN 9 MG/DL (7-18); CALCIUM LEVEL 8.6 MG/DL (8.8-10.2); CARBON DIOXIDE LEVEL 30 MEQ/L (21-32); CHLORIDE LEVEL 103 MEQ/L (98-107); CREATININE FOR GFR 0.92 MG/DL (0.70-1.30); GLOMERULAR FILTRATION RATE > 60.0 (>42); GLUCOSE, FASTING 89 MG/DL (70-100); POTASSIUM SERUM 3.6 MEQ/L (3.5-5.1); SODIUM LEVEL 138 MEQ/L (136-145); TOTAL PROTEIN 5.9 GM/DL (6.4-8.2)
[2020-05-04 07:28] LABS: BASO % 0.3 % (0.0-1.0); EOS % 0.6 % (0.0-3.0); HEMATOCRIT 29.3 % (42.0-52.0); HEMOGLOBIN 8.9 g/dl (13.5-17.5); LYMPH # 1.1 10^3/uL (1.5-5.0); LYMPH % 15.3 % (24.0-44.0); MEAN CORPUSCULAR HEMOGLOBIN 27.6 pg (27.0-33.0); MEAN CORPUSCULAR HGB CONC 30.4 g/dl (32.0-36.5); MONO % 14.7 % (0.0-5.0); NEUTROPHILS # 4.8 10^3/uL (1.5-8.5); NEUTROPHILS % 68.7 % (36.0-66.0); PLATELET COUNT, AUTOMATED 255 10^3/uL (150-450); RED BLOOD COUNT 3.22 10^6/uL (4.30-6.10)
[2020-05-04 08:00] VITALS: BP 160/96
[2020-05-04] MEDS ORDERED: FLUBLOK(EGG FREE)(QUAD)INFLUENZA VACC 0.5ML SYRINGE 18YRS & OLDER IM ONE (09:00)
[2020-05-04 09:40] LABS: NT-PRO BNP 30050 PG/ML (<125)
--- NOTE | 2020-05-04 10:11 | REP ---
INDICATION: sob. COMPARISON: CT angio 04/08/2020, AP chest 06/25/2019. TECHNIQUE: Seated AP lateral FINDINGS: Lungs of adequately inflated with flattened diaphragms and increased AP diameter with prominent retrosternal clear space consistent with COPD underlying interstitial fibrosis. There is vascular redistribution with cardiomegaly, left atrial and ventricular enlargement. I suspect some interstitial edema although that is difficult to precisely determine in the setting of underlying fibrosis. There are increased markings at the right base above the diaphragm improvement in the retrocardiac markings the left base compared to the June study no gross effusions. Tortuous calcified aorta unchanged. Airway intact. Degenerative changes in the spine and shoulders. IMPRESSION: 1. Cardiomegaly with vascular redistribution and suspected interstitial edema. No gross effusion. 2. COPD and underlying fibrosis. There are heavier markings in the right base compared to the June study and much improvement in the left base compared to that exam. I suspect some patchy infiltrate or atelectasis in the right lower lung zone today. <Electronically signed by Tj Reid > 05/04/20 [id number]
[2020-05-04] MEDS: TORSEMIDE 10 MG TABLET PO SCH ×2 (10:22→17:50)
[2020-05-04] MEDS: FLUoxetine 20 MG CAP PO SCH (10:22)
[2020-05-04] MEDS: OMEPRAZOLE 20 MG CAP PO SCH ×2 (10:23→21:12)
[2020-05-04] MEDS: GABAPENTIN 300 MG CAP PO SCH ×2 (10:23→21:12)
[2020-05-04] MEDS: FERROUS GLUCONATE 324 MG TAB PO SCH ×2 (10:24→17:50)
[2020-05-04] MEDS: oxyBUTYnin *DITROPAN XL* 5 MG TABCR PO SCH (10:24)
[2020-05-04] MEDS: CYANOCOBALAMIN 500 MCG TAB PO SCH (10:24)
[2020-05-04] MEDS: FAMOTIDINE 20 MG TAB PO SCH ×2 (10:25→21:12)
[2020-05-04] MEDS: APIXABAN 5 MG TAB (ELIQUIS) PO SCH ×2 (10:25→21:12)
[2020-05-04] MEDS: LACTOBACILLUS ACIDOPHILUS CAP (BACID) PO SCH (10:25)
[2020-05-04] MEDS: HYDROCORTISONE 10 MG TAB PO SCH ×2 (10:26→21:12)
[2020-05-04] MEDS: FEBUXOSTAT 40 MG TABLET (ULORIC) PO SCH (10:26)
[2020-05-04] MEDS: MULTIVITAMINS/MINERALS THERAP 1 TAB PO SCH (10:26)
[2020-05-04] MEDS: busPIRone 5 MG TAB PO SCH (10:26)
[2020-05-04] MEDS: VITAMIN D 1,000 INTERNATIONAL UNITS TABLET PO SCH (10:26)
[2020-05-04] MEDS: MAGNESIUM CHLORIDE 64 MG TABCR (SLO MAG) PO SCH (10:27)
[2020-05-04] MEDS: SPIRONOLACTONE 25 MG TAB PO SCH (10:27)
[2020-05-04] MEDS: METOPROLOL SUCC *XL* 25MG TAB (TopROL *XL*) PO SCH (10:28)
[2020-05-04] MEDS: ANEXSIA, NORCO 7.5MG/325MG TABLET(HYDROCODONE/APAP) PO PRN ×2 (10:28→17:51)
--- NOTE | 2020-05-04 10:37 | IPNPDOC ---
Text Note Date of Service The patient was seen on 05/04/20. NOTE SUBJECTIVE: The patient is a 74yo male who presented to the ED for worsening abdominal pain, nausea and diarrhea. He was recently hospitalized for abdominal pain, and found to be septic with cholangitis vs cholelithiasis. He developed C. diff while in the hospital, and was discharged with a course of oral vancomycin. Upon reexperiencing the diarrhea and abdominal pain, he believed that his cholelithiasis has returned, and presented to the ED. He has been passing loose, brown stools 10x per day for the last four days. He describes the stools as loose, not watery, and without blood. He has had no energy, no appetite, and nausea for the last four days. He denies vomiting. He is positive for a headache, chills, and heart palpitations. He denies dizziness, trembling, sinus congestion, chest pain or SOB, or pyuria. OBJECTIVE: VITALS: See below GENERAL: The patient is lying in bed, and is not in any acute distress. He is alert and oriented x3. CV: RRR, S1 and S2 sounds are heard. No murmurs, gallops or rubs are noted. Capillary refill <2s in both hands, and radial pulses are equal. LUNGS: Lungs are clear to auscultation in all lung hobbs b/l. No wheezing, ra les or rhonchi are noted. ABDOMEN: Abdomen is soft and nondistended. There is tenderness on the R upper quadrant. Tenderness increases on palpation. Hyperactive bowel sounds are noted. EXTREMITIES: There is no edema of the legs. ASSESSMENT/PLAN: The patient is a 74yo male with a PMHx of DM, CKD, HTN, heart failure and A-fib, who presented to the ED with crampy abdominal pain and diarrhea. Given the patient was just discharged with Vancomycin for C. diff infection, it is very likely that his infection has returned. 1. Abdominal Pain and Diarrhea -Stool culture pending -GI Panel pending -Patient is on a 2gm sodium restricted diet. -Currently presentation does not appear to be cholelithiasis related. -Pending GI pannel. If C. diff is positive, we anticipate adding fidaxomicin. 2. Adrenal Insufficiency -Continue home hydrocortisone 3. A-Fib -Continue home Eliquis and metoprolol 4. CAD -Continue home statin 5. Heart Failure with Preserved Ejection Fraction -Continue home Aldactone and Demadex 6. BPH -Continue home Flomax 9. Depression and PTSD -Continue home Prozac 10. GERD -Continue home Pepcid 11. DVT Prophylaxis -Patient is already on Eliquis. Continue home Eliquis Dispo: Pending stool culture and antibacterial course. Anticipated discharge in 24-48hr. VS,Fishbone, I+O VS, Fishbone, I+O Laboratory Tests 05/03/20 11:22 05/04/20 05:24 05/04/20 05:26 Vital Signs Date Time Temp Pulse Resp B/P (MAP) Pulse Ox O2 Delivery O2 Flow Rate FiO2 05/04/20 08:00 97.6 73 18 160/96 (117) 96 Room Air 05/04/20 04:00 4.0 I&O- Last 24 Hours up to 6 AM 05/04/20 06:00 Intake Total 1400 ml Output Total 2450 ml Balance -1050 ml GME ATTESTATION GME ATTESTATION My faculty preceptor for this patient encounter was physically present during the encounter and was fully available. All aspects of the patient interview, examination, medical decision making process, and medical care plan development were reviewed and approved by the faculty preceptor. The faculty preceptor is aware and concurs with the plan as stated in the body of this note and will attest to such by his/her cosignature. ATTENDING NOTE Attending Note: Patient seen and examined independently. Agree with student's note. ROBERTA FREEMAN May 04, 2020 10:37 BRENDON JONES MD May 06, 2020 07:02
[2020-05-04] MEDS ORDERED: NYSTATIN 100,000 UNITS/GM TOPICAL PWD 15 GM TOP PRN (14:00)
[2020-05-04] MEDS ORDERED: SLF 3 ML SYR IV PRN (14:45)
[2020-05-04 16:00] VITALS: BP 132/88
[2020-05-04 20:00] VITALS: BP 130/82
[2020-05-04] MEDS: TAMSULOSIN 0.4 MG CAP PO SCH (21:12)
[2020-05-04] MEDS: ATORVASTATIN 20 MG TAB PO SCH (21:12)
[2020-05-04] MEDS: busPIRone 10 MG TAB PO SCH (21:15)
[2020-05-04] MEDS: zolPIDEM TARTRATE 5 MG TAB PO PRN (21:15)
[2020-05-04] MEDS: SLF 3 ML SYR IV SCH (21:16)
[2020-05-05] VITALS: BP 140/82
[2020-05-05 04:00] VITALS: BP 156/84
[2020-05-05] MEDS: hydrALAZINE 20MG/ML 1ML VIAL (J0360 PER 20MG) IV SCH ×2 (05:41)
[2020-05-05] MEDS: SLF 3 ML SYR IV SCH (06:22)
[2020-05-05 06:28] LABS: HEMOGLOBIN 9.6 g/dl (13.5-17.5); MEAN CORPUSCULAR HEMOGLOBIN 28.9 pg (27.0-33.0); MEAN CORPUSCULAR VOLUME 90.4 fl (80.0-96.0); PLATELET COUNT, AUTOMATED 294 10^3/uL (150-450); RED BLOOD COUNT 3.32 10^6/uL (4.30-6.10); WHITE BLOOD COUNT 7.7 10^3/uL (4.0-10.0)
[2020-05-05 06:45] LABS: BLOOD UREA NITROGEN 10 MG/DL (7-18); CALCIUM LEVEL 8.2 MG/DL (8.8-10.2); CARBON DIOXIDE LEVEL 33 MEQ/L (21-32); CHLORIDE LEVEL 102 MEQ/L (98-107); GLOMERULAR FILTRATION RATE > 60.0 (>42); GLUCOSE, FASTING 96 MG/DL (70-100); POTASSIUM SERUM 3.5 MEQ/L (3.5-5.1); SODIUM LEVEL 143 MEQ/L (136-145)
[2020-05-05 08:00] VITALS: BP 145/62
[2020-05-05] MEDS: SPIRONOLACTONE 25 MG TAB PO SCH (09:11)
[2020-05-05] MEDS: MAGNESIUM CHLORIDE 64 MG TABCR (SLO MAG) PO SCH (09:11)
[2020-05-05] MEDS: HYDROCORTISONE 10 MG TAB PO SCH (09:11)
[2020-05-05] MEDS: TORSEMIDE 10 MG TABLET PO SCH (09:11)
[2020-05-05] MEDS: busPIRone 5 MG TAB PO SCH (09:11)
[2020-05-05] MEDS: LACTOBACILLUS ACIDOPHILUS CAP (BACID) PO SCH (09:12)
[2020-05-05] MEDS: APIXABAN 5 MG TAB (ELIQUIS) PO SCH (09:12)
[2020-05-05] MEDS: VITAMIN D 1,000 INTERNATIONAL UNITS TABLET PO SCH (09:12)
[2020-05-05] MEDS: FEBUXOSTAT 40 MG TABLET (ULORIC) PO SCH (09:12)
[2020-05-05] MEDS: OMEPRAZOLE 20 MG CAP PO SCH (09:12)
[2020-05-05] MEDS: CYANOCOBALAMIN 500 MCG TAB PO SCH (09:12)
[2020-05-05 09:13] VITALS: BP 145/62
[2020-05-05] MEDS: FAMOTIDINE 20 MG TAB PO SCH (09:13)
[2020-05-05] MEDS: METOPROLOL SUCC *XL* 25MG TAB (TopROL *XL*) PO SCH (09:13)
[2020-05-05] MEDS: MULTIVITAMINS/MINERALS THERAP 1 TAB PO SCH (09:13)
[2020-05-05] MEDS: FERROUS GLUCONATE 324 MG TAB PO SCH (09:13)
[2020-05-05] MEDS: FLUoxetine 20 MG CAP PO SCH (09:13)
[2020-05-05] MEDS: oxyBUTYnin *DITROPAN XL* 5 MG TABCR PO SCH (09:13)
[2020-05-05] MEDS: GABAPENTIN 300 MG CAP PO SCH (09:14)
[2020-05-05] MEDS: ANEXSIA, NORCO 7.5MG/325MG TABLET(HYDROCODONE/APAP) PO PRN (09:27)
[2020-05-05] MEDS ORDERED: VANC1CAP7 PO ×2 (10:27→10:28)
--- NOTE | 2020-05-05 11:21 | DS.PDOC ---
Discharge Summary General Date of Admission May 03, 2020 at 13:21 Date of Discharge 05/05/20 Specialist/Consultants Involve surgery Discharge Summary PROCEDURES PERFORMED DURING STAY: [None]. DISCHARGE DIAGNOSES: #recent CDiff - possible recurrent CDiff- GI panel pending #Adrenal insufficiency #Atrial fibrillation # Coronary artery disease #HFpEF #Lupus with chronic interstitial lung disease. #BPH #GERD COMPLICATIONS/CHIEF COMPLAINT: Abdominal pain/diarrhea HISTORY OF PRESENT ILLNESS/Hospital Course: 74M presented for several day history of worsening abdominal pain, nausea and diarrhea. He was recently discharged from the hospital where he also presented for abdominal pain, was found to be septic with possibly cholecystis. He was managed without surgical intervention given his high surgical risk. He did improve, however his hospital stay was complicated with C Diff colitis, and bacteremia. He was discharged home with oral antibiotics. He recently completed his antibiotic therapy about one week prior to his return to the ED. He denied chest pain, shortness of breath, headaches, vomiting. 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 Imaging showed persistent ileus, without SBO, and was discussed with surgery. His diarrhea did improve, and a GI panel was ordered and pending. 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 DISCHARGE MEDICATIONS: Please see below. ALLERGIES: Please see below. PHYSICAL EXAMINATION ON DISCHARGE: VITAL SIGNS: See below General: NAD, lying comfortably in bed HEENT: NC/AT, EOMI Lungs: CTA B/L Abd: soft, NT, +BS Ext: no edema LABORATORY DATA: Please see below. ACTIVITY: [As tolerated]. DISCHARGE PLAN: Discharge home ITEMS TO FOLLOWUP ON ON OUTPATIENT: 1. FOllow up PCP in 3-5 days. 2. Medications as directed DISCHARGE CONDITION: [Stable]. TIME SPENT ON DISCHARGE: 35 minutes. Vital Signs/I&Os Vital Signs Date Time Temp Pulse Resp B/P (MAP) Pulse Ox O2 Delivery O2 Flow Rate FiO2 05/05/20 09:57 18 05/05/20 09:27 Nasal Cannula 4.0 05/05/20 09:13 77 145/62 05/05/20 08:00 97.5 96 l I&O- Last 24 Hours up to 6 AM 05/05/20 06:00 Intake Total 2276 ml Output Total 3000 ml Balance -724 ml Laboratory Data Labs 24H Laboratory Tests 2 05/05/20 05:34: Nucleated Red Blood Cells % (auto) 0.0 05/05/20 05:35: Anion Gap 8, Glomerular Filtration Rate > 60.0, Calcium Level 8.2L CBC/BMP Laboratory Tests 05/05/20 05:34 05/05/20 05:35 Microbiology Microbiology 05/03/20 Campylobacter (PCR), Received Pending 05/03/20 Clostridium difficile Toxin A&B PCR, Received Pending 05/03/20 Plesiomonas shigelloides (PCR), Received Pending 05/03/20 Salmonella (PCR)(DANNY), Received Pending 05/03/20 Vibrio Species (PCR), Received Pending 05/03/20 Vibrio Cholerae (PCR), Received Pending 05/03/20 Yersinia enterocolitica (PCR), Received Pending 05/03/20 Enteroaggregative E. coli (PCR), Received Pending 05/03/20 Enteropathogenic E. coli (PCR), Received Pending 05/03/20 Enterotoxigenic E. coli (PCR), Received Pending 05/03/20 E. coli Shiga-like Toxin (PCR), Received Pending 05/03/20 Escherichia coli 0157 (PCR), Received Pending 05/03/20 Enteroinvasive E. coli/Shigella PCR, Received Pending 05/03/20 Cryptosporidium (PCR), Received Pending 05/03/20 Cyclospora cayetanensis (PCR), Received Pending 05/03/20 Entamoeba histolytica (PCR), Received Pending 05/03/20 Giardia lamblia (PCR), Received Pending 05/03/20 Adenovirus Type F 40/41 (PCR), Received Pending 05/03/20 Astrovirus (PCR), Received Pending 05/03/20 Norovirus GI/GII (PCR), Received Pending 05/03/20 Rotavirus A (PCR), Received Pending 05/03/20 Sapovirus I/II/IV/V (PCR), Received Pending 05/03/20 Blood Culture - Preliminary, Resulted No growth after 24 hours . All specim... 05/03/20 Blood Culture - Preliminary, Resulted No growth after 24 hours . All specim... Discharge Medications Scheduled Acarbose (Acarbose) 25 Mg Tab, 25 MG PO ACB, (Reported) Apixaban (Eliquis) 5 Mg Tablet, 5 MG PO BID, (Reported) Atorvastatin Calcium (Atorvastatin Calcium) 40 Mg Tablet, 20 MG PO QHS, (Repo rted) Buspirone HCl (Buspirone HCl) 10 Mg Tablet, 10 MG PO QHS, (Reported) Buspirone HCl (Buspirone HCl) 10 Mg Tablet, 5 MG PO QAM, (Reported) Calcium Carbonate/Vitamin D3 (Calcium 600-Vit D3 400 Tablet) 1 Each Tablet, 1 TAB PO BID, (Reported) Cholecalciferol (Vitamin D3) (Vitamin D3) 1,000 Unit Tablet, 1,000 UNITS PO DAILY, (Reported) Cyanocobalamin (Vitamin B-12) (Vitamin B-12) 1,000 Mcg Tab, 1,000 MCG PO DAILY, (Reported) Epoetin Carson (Procrit) 20,000 Unit/Ml Inj, 20,000 UNIT SC Q2WK, (Reported) Ergocalciferol (Vitamin D2) (Vitamin D2) 50,000 Units Cap, 50,000 UNITS PO QWEEK, (Reported) WEDNESDAYS Famotidine (Famotidine) 20 Mg Tablet, 20 MG PO BID, (Reported) Febuxostat (Uloric) 80 Mg Tab, 80 MG PO DAILY, (Reported) Ferrous Gluconate (Ferrous Gluconate) 324 Mg Tab, 324 MG PO BIDWM, (Reported) Fluoxetine Hcl (Fluoxetine HCl) 20 Mg Capsule, 80 MG PO DAILY, (Reported) Gabapentin (Gabapentin) 600 Mg Tablet, 600 MG PO BID, (Reported) Hydrocortisone (Hydrocortisone) 20 Mg Tablet, 20 MG PO QAM, (Reported) Hydrocortisone (Hydrocortisone) 20 Mg Tablet, 10 MG PO QPM, (Reported) L.acidoph/L.bulg/B.bif/S.therm (Bacid Caplet) 1 Tab Tab, 1 TAB PO DAILY, (Reported) Magnesium Chloride (Slow-Mag) 1 Tab Tab, 1 TAB PO DAILY, (Reported) TAKES AT 1200 Metoprolol Succinate (Metoprolol Succinate) 50 Mg Tab.er.24h, 25 MG PO DAILY, (Reported) Multivitamins (Thera M Plus Tablet) 1 Tab Tab, 1 TAB PO DAILY, (Reported) Nut.tx.gluc.intoler,Lac-Fr,Soy (Glucerna Therapeutic Nutrition) 237 Ml Liquid, 237 ML PO DAILY, (Reported) Omeprazole (Omeprazole) 20 Mg Tablet.dr, 40 MG PO BID, (Reported) Oxybutynin Chloride (Oxybutynin Chloride ER) 15 Mg Tab, 15 MG PO DAILY, (Reported) Spironolactone (Spironolactone) 25 Mg Tablet, 25 MG PO DAILY, (Reported) Tamsulosin HCl (Flomax) 0.4 Mg Cap, 0.4 MG PO QPM, (Reported) Torsemide (Torsemide) 10 Mg Tablet, 30 MG PO BID, (Reported) 0900/1700 Vancomycin HCl (Vancocin HCl) 250 Mg Capsule, 1 CAP PO QID Vancomycin HCl (Vancocin HCl) 250 Mg Capsule, 1 CAP PO QID Scheduled PRN Acetaminophen (Acetaminophen) 500 Mg Tablet, 500 MG PO Q8H PRN for PAIN, (Reported) Albuterol Sulf (Albuterol Sulfate) 2.5 Mg/3 Ml Nebu, 2.5 MG INH Q4H PRN for SHORTNESS OF BREATH, (Reported) Albuterol Sulfate (Proair Hfa) 108 Mcg/Act Aer, 1 PUFF INH Q4H PRN for SHORTNESS OF BREATH, (Reported) Ammonium Lactate (Ammonium Lactate) 12% Cream..g., 1 DOSE TOP DAILY PRN for DRY SKIN, (Reported) APPLY TO HEELS Dextran/Hypromellose (Genteal Tears 0.1%-0.3% Drop) 15 Ml Drops, 1 DROP OU QID PRN for DRY EYES, (Reported) Hydrocodone/Acetaminophen (Hydrocodone-Acetamin 7.5-325) 1 Each Tablet, 1 TAB PO QID PRN for PAIN, (Reported) Nitroglycerin (Nitrostat) 0.4 Mg Subl, 0.4 MG SL NITRO PRN for CHEST PAIN, (Reported) Zolpidem Tartrate (Zolpidem Tartrate) 5 Mg Tablet, 5 MG PO QHS PRN for SLEEP, (Reported) Allergies Coded Allergies: allopurinol (Verified Allergy, Mild, itching, 06/25/19) BRENDON JONES MD May 05, 2020 11:21
== END 2020-05-05 13:24 | disposition home or self-care (01) | DRG 372 ==
LOC: M ED 10:58 → EDBD 10:58 → M ED INP 13:21 → ENRESERV 16:59 → CANRESERV 16:59 → ENRESERV 18:46 → M PCU 19:35
PROVIDERS: ADMIT Internal Medicine; ATTEND Internal Medicine
DX: A04.71 Enterocolitis due to Clostridium difficile, recurrent (principal); E27.40 Unspecified adrenocortical insufficiency; I50.32 Chronic diastolic (congestive) heart failure; I48.91 Unspecified atrial fibrillation; M32.13 Lung involvement in systemic lupus erythematosus; I25.10 Atherosclerotic heart disease of native coronary artery without angina pectoris; N40.0 Benign prostatic hyperplasia without lower urinary tract symptoms; K21.9 Gastro-esophageal reflux disease without esophagitis; Z79.899 Other long term (current) drug therapy; Z88.8 Allergy status to other drugs, medicaments and biological substances; F32.9 Major depressive disorder, single episode, unspecified

== ENCOUNTER → 2020-10-16 | Outpatient (CLI) | payer OTHER ==
[~2020-10-16] MED LIST changes: +ACET500T15 PO; -AMIT25TA PO; +AMIT25TA17 PO; +ASPI-569 PO; -ASPI81TAEC PO; +FERR324T21 PO; -FERR325T16 PO; +GLUC1LIQ18 PO; +MIRT-60 PO; -REME30TA PO
--- NOTE | 2020-10-18 00:45 | ECWPNPC ---
PATIENT NAME: ERICK SHELBY : 1945 GENDER: MALE VISIT DATE: 10/16/2020 DISCHARGE DATE: 10/16/20938 VISIT LOCKED DATE TIME: PHYSICIAN: JIMBO SEAMAN RESOURCE: JIMBO SEAMAN REASON FOR APPOINTMENT 1. LOW BACK HISTORY OF PRESENT ILLNESS DEPRESSION SCREENING: PHQ-9 LITTLE INTEREST OR PLEASURE IN DOING THINGSSEVERAL DAYS FEELING DOWN, DEPRESSED, OR HOPELESSSEVERAL DAYS TROUBLE FALLING OR STAYING ASLEEP, OR SLEEPING TOO MUCHNEARLY EVERY DAY FEELING TIRED OR HAVING LITTLE ENERGYNEARLY EVERY DAY POOR APPETITE OR OVEREATING NOT AT ALL FEELING BAD ABOUT YOURSELF-OR THAT YOU ARE A FAILURE OR HAVE LET YOURSELF OR YOUR FAMILY DOWN NOT AT ALL TROUBLE CONCENTRATING ON THINGS, SUCH READING THE NEWSPAPER OR WATCHING TELEVISION NOT AT ALL MOVING OR SPEAKING SO SLOWLY THAT OTHER PEOPLE COULD HAVE NOTICED. OR THE OPPOSITE- BEING SO FIDGETY OR RESTLESS THAT YOU HAVE BEEN MOVING AROUND A LOT MORE THAN USUALNOT AT ALL THOUGHTS THAT YOU WOULD BE BETTER OFF , OR OF HURTING YOURSELF IN SOME WAY?NOT AT ALL TOTAL SCORE:8 INTERPRETATIONMILD DEPRESSION PHQ-2 (2015 EDITION) LITTLE INTEREST OR PLEASURE IN DOING THINGS?SEVERAL DAYS FEELING DOWN, DEPRESSED, OR HOPELESS?SEVERAL DAYS TOTAL SCORE2 74-YEAR-OLD MALE IN FOR INITIAL PAIN CONSULT REGARDING LOW BACK PAIN. WHEN ASKED PATIENT ADMITS TO LOW BACK PAIN FOR SEVERAL YEARS. HE DENIES INJECTIONS AND/OR MEDICATIONS THAT HELPED HIM IN THE PAST. HE'S CURRENTLY TAKING GABAPENTIN AND FEELS THIS IS INEFFECTIVE IN MANAGING HIS PAIN. GENERAL: - - -. FALL RISK SCREENING: SCREENING 5-6 FALLS LAST YEAR ENDING UP GOING TO THE ER MULTPLY TIMES.. PAIN SCREENING: PATIENT HAS A COMPLAINT OF ACUTE OR CHRONIC PAIN :YES LOCATION OF PAIN:LOW BACK GOES DOWN BOTH LEGS INTENSITY OF PAIN (SCALE OF 1 TO 10):7 WHAT DOES YOUR PAIN FEEL LIKE:ACHING, CONTINOUS, STABBING DURATION:CONTINOUS, CONSTANT PAIN IS INCREASED BY:ACTIVITIES PAIN IS DECREASED BY:USE OF PAIN MEDICATIONS, OTHERS ICE AND HEAT AND MEDS NURSING NOTE: - - -. PAIN CENTER INTAKE QUESTIONS: DO YOU HAVE A HISTORY OF MRSA? :NO DO YOU TAKE A BLOOD THINNERS? :YES ELIQUIS ( APIXABAN ) DO YOU HAVE ANY BLEEDING DISORDERS? :NO ANY NEW NUMBNESS OR WEAKNESS IN YOUR LEGS OR ARMS? :NO ANY PACEMAKER,DEFIBRILLATOR, OR DORSAL COLUMN STIMULATOR? :NO DO YOU HAVE ANY RASHES OR OPEN SORES? :NO ARE YOU ALLERGIC TO IV DYE? :NO ARE YOU DIABETIC? :YES TYPE 2 ANY NEW PROBLEMS WITH YOUR MEDICATIONS? :NO HAVE YOU RECEIVED A VACCINE IN THE PAST 30 DAYS? :YES 2ND COVID 09/22/2020 DO YOU PLAN TO RECEIVE A VACCINE IN THE NEXT 21 DAYS? :NO DO YOU NEED ANY PRESCRIPTION? :NO DO YOU TAKE ANY IMMUNOSUPPRESSIVE MEDICATIONS? :YES HYDROCORTISONE CURRENT MEDICATIONS TAKING ACCU-CHEK GUIDE - STRIP DIRECTED IN VITRO TAKING ACETAMINOPHEN 500 MG TABLET 1 TABLET NEEDED ORALLY EVERY 8 HRS TAKING ALBUTEROL SULFATE HFA 108 (90 BASE) MCG/ACT AEROSOL SOLUTION 1 PUFF NEEDED INHALATION EVERY 4 HRS TAKING AMMONIUM LACTATE 12 % LOTION APPLY MODERATE AMOUNT EXTERNALLY ONCE DAILY TO HEELS TAKING APIXABAN 5 MG TABLET DIRECTED ORALLY TWICE DAILY TO PREVENT BLOOD CLOTS, NOTES: BLOOD CLOTS TAKING ATORVASTATIN CALCIUM 40 MG TABLET 1/2 TABLET ORALLY ONCE A DAY TAKING BUSPIRONE HCL 10 MG TABLET 1 TABLET ORALLY BEFORE BEDTIME TAKING CALCIUM + D _ TABLET CHEWABLE 600MG/VITAMIN D 400 UNIT TAB DIRECTED ORALLY TWICE DAILY TAKING CYANOCOBALAMIN 1000 MCG TABLET 1 TABLET ORALLY ONCE A DAY TAKING DEXTRAN 70 IN SALINE 1 DROP BOTH EYES FOUR TIMES DAILY NEEDED TAKING EPOETIN TRINY 47465 UNIT/ML SOLUTION 1 INJECTION SUBCUTANEOUSLY EVERY OTHER WEEK, NOTES: FOR BLOOD TAKING FAMOTIDINE 40 MG TABLET 2 TABLET AT BEDTIME NEEDED ORALLY ONCE DAILY TAKING FEBUXOSTAT 40 MG TABLET 1 TABLET ORALLY ONCE A DAY, NOTES: GOUT TAKING FLUOXETINE HCL (PMDD) 20 MG TABLET 4 CAPSULES ORALLY DAILY TAKING HYDROCODONE-ACETAMINOPHEN 7.5-325 MG TABLET 1 TABLET NEEDED ORALLY FOUR TIMES DAILY TAKING HYDROCORTISONE 20 MG TABLET 1 TABLET WITH FOOD OR MILK ORALLY EVERY MORNING, NOTES: ITCHING/RASH TAKING PROBIOTIC ACIDOPHILUS _ TABLET CHEWABLE DIRECTED ORALLY ONCE DAILY NEEDED TAKING MAGNESIUM _ TABLET 70 MG 1 TABLET WITH A MEAL ORALLY ONCE A DAY TAKING METOPROLOL SUCCINATE 50 MG CAPSULE ER 24 HOUR SPRINKLE 1 CAPSULE ORALLY ONCE A DAY TAKING MULTIVITAMIN - TABLET 1 TABLET ORALLY ONCE A DAY TAKING NITROGLYCERIN 0.4 MG TABLET SUBLINGUAL DIRECTED SUBLINGUAL TAKING OMEPRAZOLE MAGNESIUM 20 MG TABLET DELAYED RELEASE 2 CAPSULES 30 MINUTES BEFORE MORNING MEAL ORALLY TWICE A DAY, BEFORE MEALS TAKING OXYBUTYNIN CHLORIDE ER 15 MG TABLET EXTENDED RELEASE 24 HOUR 1 TABLET ORALLY ONCE A DAY TAKING TAMSULOSIN HCL 0.4 MG CAPSULE 1 CAPSULE ORALLY ONCE A DAY NOT-TAKING BUSPIRONE HCL 10 MG TABLET 1/2 TABLET ORALLY EVERY MORNING NOT-TAKING HYDROCORTISONE 20 MG TABLET 1/2 TABLET WITH FOOD OR MILK ORALLY BEFORE BEDTIME, NOTES: ITCHING/RASH MEDICATION LIST REVIEWED AND RECONCILED WITH THE PATIENT PAST MEDICAL HISTORY TYPE 2 DIABETES LUPUS HEART FAILURE LUNG PROBLEMS 2015 KIDNEY DISEASE ALLERGIES N.K.D.A. SURGICAL HISTORY BOTH KNEE REPLACEMENT BOTH EYES CATARCTS SURG NECK SURG FAMILY HISTORY FATHER: MOTHER: DAUGHTER(S): ALIVE 2 BROTHER(S) , 1 SISTER(S) - HEALTHY. 2 SON(S) , 3 DAUGHTER(S) - HEALTHY. TWO HALF BROTHERS. SOCIAL HISTORY GENERAL: TOBACCO USE ARE YOU A:FORMER SMOKER HOW LONG HAS IT BEEN SINCE YOU LAST SMOKED?> 10 YEARS LATEX QUESTIONNAIRE LATEX ALLERGY : HAVE YOU EVER DEVELOPED ANY TYPE OF REACTION AFTER HANDLING LATEX PRODUCTS SUCH RUBBER GLOVES, CONDOMS, DIAPHRAGMS, BALLOONS, SOCKS, OR UNDERWEAR?NO LATEX ALLERGY : HAVE YOU EVER DEVELOPED ANY TYPE OF REACTION DURING OR AFTER DENTAL APPOINTMENT, VAGINAL/RECTAL EXAMINATION, SURGICAL PROCEDURE, OR ANY OTHER EXPOSURE?NO LATEX RISK : HAVE YOU EVER HAD ANY DIFFICULTY BREATHING OR HIVES AFTER EATING OR HANDLING ANY FRUITS, OR VEGETABLES; SUCH KIWI, BANANAS, STONE FRUITS, OR CHESTNUTSNO LATEX RISK : DO YOU HAVE A PREVIOUS PERSONAL HISTORY OF MORE THAN NINE SURGERIES, SPINA BIFIDA, OR REPEATED CATHERIZATIONS? NO LATEX RISK : ARE YOU FREQUENTLY EXPOSED TO LATEX PRODUCTS IN YOUR OCCUPATION?NO DATE ASKED : 10/16/2020 ALCOHOL USE: NO. 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 CHILLS NO . WEIGHT CHANGE OF UNKNOWN REASONS NO . MUSCULOSKELETAL: ANY UNUSUAL JOINT PAIN OR SWELLING NOT MENTIONED NO . SYSTEMIC LUPUS NO . ANY NEUROMUSCULAR DISORDER NOT MENTIONED NO . LYME DISEASE NO . GASTROENTEROLOGY: ANY NEW CHANGE IN BOWEL CONTROL? NO . HISTORY OF LIVER DISORDER NOT MENTIONED NO . HISTORY OF UNUSUAL ABDOMINAL PAIN OR CRAMPING NOT MENTIONED NO . NO CONSTIPATION. GENITOURINARY: ANY NEW CHANGE IN BLADDER CONTROL? NO . ANY RENAL/KIDNEY CONDITON NOT MENTIONED NO . NEUROLOGY: HISTORY OF TBI NOT MENTIONED NO . OTHER NEW NUMBNESS OR PAIN PATTERNS NOT MENTIONED NO . NEW ONSET DIZZINESS OR NEUROLOGICAL CHANGES NOT MENTIONED NO . HISTORY OF SEVERE HEADACHES NOT MENTIONED NO . HISTORY OF STROKE OR NEUROLOGICAL DISORDER NOT MENTIONED NO . CARDIOLOGY: HEART SURGERY NO . CONGESTIVE HEART FAILURE/FLUID OVERLOAD NOT MENTIONED NO . HISTORY OF CHEST PAIN,IRREGULAR HEART BEAT NOT MENTIONED NO . RESPIRATORY: SHORTNESS OF BREATH ON EXERTION, WHEEZES, UNUSUAL COUGH NOT MENTIONED NO . ENDOCRINOLOGY: ADRENAL GLAND OR THYROID DISORDERS NOT MENTIONED NO . UNUSUAL URINATION, DIZZINESS OR LETHARGY NOT MENTIONED NO . VITAL SIGNS WT 236.0 LBS, HT 58 IN, BMI 49.32 INDEX, BP 124/74 MM HG, HR 63 /MIN, RR 18 /MIN, TEMP 97.3 F, OXYGEN SAT % 92%, SAFE IN ENV? (Y/N) YES, NA INITIALS AW [id number].ARMAND PERRY. EXAMINATION GENERAL EXAMINATION: GENERALNO ACUTE DISTRESS, WELL NOURISHED AND HYDRATED. PSYCHAPPROPRIATE MOOD AND AFFECT . LUNGS:CLEAR TO AUSCULTATION BILATERALLY, NO WHEEZES, RHONCHI, RALES. HEART:HEART RATE IRREGULAR HISTORY OF A. FIB . BACK:POINT TENDER ALONG LUMBAR SPINE, SURROUNDING SKIN SHOWS NO ERYTHEMA, ECCHYMOSIS, INCREASED WARMTH, AND/OR SKIN ERUPTIONS NOTED. . ASSESSMENTS LOW BACK PAIN WITH RADIATION, UNSPECIFIED LATERALITY - M54.40 (PRIMARY) TREATMENT LOW BACK PAIN WITH RADIATION, UNSPECIFIED LATERALITY START LYRICA CAPSULE, 75 MG, 1 CAPSULE, ORALLY, TWICE DAILY, 30 DAYS, 60 NOTES: 74-YEAR-OLD MALE IN FOR INITIAL PAIN CONSULT. GIVEN PRESENTING SYMPTOMS RECOMMEND TAPERING GABAPENTIN AND STARTING LYRICA WITH FOLLOW-UP IN ONE MONTH TO DETERMINE EFFICACY OF TREATMENT. GABAPENTIN TAPER FOLLOWS 1, 300 MG CAPSULE DAILY TIMES ONE WEEK THEN 1 CAPSULE EVERY OTHER DAY X1 WEEK THEN STOP. PATIENT HAS EXPRESSED UNDERSTANDING OF AND WAS IN AGREEMENT WITH TREATMENT PLAN. GIVEN TIME TO ASK QUESTIONS AND EXPRESS CONCERNS. ISTOP REGISTRY REVIEWED AND DEMONSTRATES COMPLLIANCE. (REF # [id number] ) PRINTED INFORMATION ON LYRICA, ALSO NOFITY THE PATIENT TO CALL OUR OFFICE TO LET US KNOW WHAT IS THE CORRECT DOSE OF GABAPENTIN HE IS ON SO THAT HE CAN START TAPERING HIM OFF OF IT. NAVEED PERRY. PROCEDURE CODES FA211 ESTABILISHED PATIENT [facility] CHARGE DISPOSITION & COMMUNICATION FOLLOW UP 4 WEEKS (REASON: NEW MED ) ELECTRONICALLY SIGNED BY CIERA PHIPPS ON 10/17/2020 AT 08:40 AM EDT DISCLAIMER : THIS IS A VISIT SUMMARY EXTRACTED FROM THE [employer] CHART. IT IS NOT A COPY OF THE [employer] PROGRESS NOTE. MTDD
== END ==
LOC: M PAIN 08:30
PROVIDERS: ATTEND Family Medicine
DX: M54.40 Lumbago with sciatica, unspecified side (principal); E11.9 Type 2 diabetes mellitus without complications; Z96.653 Presence of artificial knee joint, bilateral; Z87.891 Personal history of nicotine dependence; E66.01 Morbid (severe) obesity due to excess calories; Z68.42 Body mass index [BMI] 45.0-49.9, adult; Z79.01 Long term (current) use of anticoagulants; Z79.899 Other long term (current) drug therapy

== ENCOUNTER → 2020-12-31 | Outpatient (CLI) | payer OTHER ==
[~2020-12-31] MED LIST changes: +BACTDSTA PO; -CEFD1CAP8 PO; +CEFD300C41 PO; +ERGO500029 PO; +FLUO-96 PO; -FLUO20CA20 PO; -HALO1TA PO; +HALO1TAB PO; -KLOR10TA76 PO; -KLOR20TA42 PO; +LOSA25TA13 PO; -LOSA25TA14 PO; +OMEP40CA4 PO; -OMEP40CA97 PO; +POTA-136 PO; +POTA-141 PO; -SULF1TAB93 PO
== END ==
LOC: M RAD 13:13
PROVIDERS: ATTEND Nurse Practitioner Family
DX: M47.26 Other spondylosis with radiculopathy, lumbar region (principal); M17.10 Unilateral primary osteoarthritis, unspecified knee

== ENCOUNTER → 2021-01-18 | Outpatient (REF) | payer OTHER ==
[~2021-01-18] MED LIST changes: +CEFD1CAP8 PO; -CEFD300C41 PO; -FLUO-96 PO; +FLUO20CA20 PO; +HALO1TA PO; -HALO1TAB PO; +KLOR10TA76 PO; +KLOR20TA42 PO; -LOSA25TA13 PO; +LOSA25TA14 PO; -POTA-136 PO; -POTA-141 PO
== END ==
LOC: M LAB REF 12:58
PROVIDERS: ATTEND Internal Medicine Nephrology
DX: N18.2 Chronic kidney disease, stage 2 (mild) (principal)

== ENCOUNTER → 2021-10-24 | Outpatient (CLI) | payer OTHER ==
[~2021-10-24] MED LIST changes: -CEFD1CAP8 PO; +CEFD300C41 PO; -D31000TA2 PO; +FLUO-96 PO; -FLUO20CA20 PO; -HALO1TA PO; +HALO1TAB PO; -KLOR10TA76 PO; -KLOR20TA42 PO; +LOSA25TA13 PO; -LOSA25TA14 PO; +POTA-136 PO; +POTA-141 PO; +VITA100093 PO
== END ==
LOC: M RAD 08:23
PROVIDERS: ATTEND Orthopaedic Surgery Adult Reconstructive Orthopaedic Surgery
DX: T84.84XA Pain due to internal orthopedic prosthetic devices, implants and grafts, initial encounter (principal); Z96.651 Presence of right artificial knee joint
CPT/HCPCS: 78315; A9503

== ENCOUNTER → 2021-11-19 | Outpatient (CLI) | payer OTHER ==
[~2021-11-19] MED LIST changes: +ALBU2.5V10 INH; -ALBU83IN INH
[2021-11-19 15:51] LABS: BASO % 0.5 % (0.0-1.0); EOS # 0.1 10^3/uL (0.0-0.5); EOS % 0.6 % (0.0-3.0); HEMATOCRIT 34.6 % (42.0-52.0); HEMOGLOBIN 10.8 g/dl (13.5-17.5); LYMPH % 11.9 % (24.0-44.0); MEAN CORPUSCULAR HEMOGLOBIN 29.9 pg (27.0-33.0); MEAN CORPUSCULAR HGB CONC 31.2 g/dl (32.0-36.5); MEAN CORPUSCULAR VOLUME 95.8 fl (80.0-96.0); MONO # 0.8 10^3/uL (0.0-0.8); MONO % 9.8 % (2.0-8.0); NEUTROPHILS # 6.6 10^3/uL (1.5-8.5); NEUTROPHILS % 76.8 % (36.0-66.0); PLATELET COUNT, AUTOMATED 211 10^3/uL (150-450); RED BLOOD COUNT 3.61 10^6/uL (4.30-6.10); WHITE BLOOD COUNT 8.6 10^3/uL (4.0-10.0)
[2021-11-19 18:41] LABS: ERYTHROCYTE SEDIMENTATION RATE 61 mm/hr (0-20)
== END ==
LOC: M PLALAB 13:58
PROVIDERS: ATTEND Orthopaedic Surgery Adult Reconstructive Orthopaedic Surgery
DX: T84.84XA Pain due to internal orthopedic prosthetic devices, implants and grafts, initial encounter (principal); Y83.1 Surgical operation with implant of artificial internal device as the cause of abnormal reaction of the patient, or of later complication, without mention of misadventure at the time of the procedure

== ENCOUNTER → 2021-12-11 | Outpatient (REF) | payer OTHER ==
[2021-12-12 12:10] LABS: SOURCE, BODY FLUID RT KNEE
== END ==
LOC: M LAB REF 11:58
PROVIDERS: ATTEND Orthopaedic Surgery Adult Reconstructive Orthopaedic Surgery
DX: Z96.651 Presence of right artificial knee joint (principal); T84.84XA Pain due to internal orthopedic prosthetic devices, implants and grafts, initial encounter; Y83.1 Surgical operation with implant of artificial internal device as the cause of abnormal reaction of the patient, or of later complication, without mention of misadventure at the time of the procedure

== ENCOUNTER → 2021-12-19 | Outpatient (REF) | payer OTHER ==
[2021-12-19 18:40] LABS: PERCENT SATURATION 16.3 % (19.7-50.0)
== END ==
LOC: M LAB REF 16:48
PROVIDERS: ATTEND Internal Medicine Nephrology
DX: D50.9 Iron deficiency anemia, unspecified (principal)

== ENCOUNTER → 2022-07-01 | Outpatient (CLI) | payer OTHER ==
[~2022-07-01] MED LIST changes: +LYRI75CA PO; +NYST-13 TOP; -NYST10CR TOP; +SANT250O8 TOP; +VENTAER INH
== END ==
LOC: M SOG 08:04
PROVIDERS: ATTEND Orthopaedic Surgery
DX: M54.2 Cervicalgia (principal); Z98.1 Arthrodesis status; M47.812 Spondylosis without myelopathy or radiculopathy, cervical region; M43.12 Spondylolisthesis, cervical region

== ENCOUNTER → 2022-07-09 | Outpatient (REF) | payer OTHER ==
[2022-07-09 18:35] LABS: PERCENT SATURATION 11.4 % (19.7-50.0)
== END ==
LOC: M LAB REF 17:13
PROVIDERS: ATTEND Internal Medicine Nephrology
DX: D50.9 Iron deficiency anemia, unspecified (principal)

== ENCOUNTER 2022-07-14 07:00 | Outpatient (CLI) | payer OTHER ==
[~2022-07-14] VITALS: Ht 172.7 cm; Wt 104.3 kg
[2022-07-14 07:00] VITALS: BP 115/74
[~2022-07-14 07:00] MED LIST changes: +FERRIC CARBOXYMALTOSE INJ 750 MG in NS 250 ML (>50kg) IV ONE; +NS 1,000 ML IV SCH
[2022-07-14] MEDS ORDERED: ALBUTEROL SULFATE 2.5MG/0.5ML INH NEB SOLN INH PRN (07:01)
[2022-07-14] MEDS ORDERED: diphenhydrAMINE 50MG/ML VIAL IV PRN (07:01)
[2022-07-14] MEDS ORDERED: EPINEPHrine INJ 1 MG/ML 1ML AMP IM PRN (07:01)
[2022-07-14] MEDS ORDERED: methylPREDNISolone 125MG 2ML VIAL IV PRN (07:01)
[2022-07-14 09:15] VITALS: BP 142/82
== END 2022-07-14 09:15 | disposition home or self-care (01) ==
LOC: M INFU 07:00
PROVIDERS: ATTEND Internal Medicine Nephrology
DX: D50.9 Iron deficiency anemia, unspecified (principal); Z88.9 Allergy status to unspecified drugs, medicaments and biological substances
CPT/HCPCS: 96365; 96366; J1439

== ENCOUNTER 2022-07-21 09:20 | Outpatient (CLI) | payer MEDICARE, OTHER ==
[~2022-07-21] VITALS: Ht 172.7 cm; Wt 104.5 kg
[2022-07-21 09:05] VITALS: BP 117/68
[~2022-07-21 09:20] MED LIST changes: +ALBUTEROL SULFATE 2.5MG/0.5ML INH NEB SOLN INH PRN; +EPINEPHrine INJ 1 MG/ML 1ML AMP IM PRN; +diphenhydrAMINE 50MG/ML VIAL IV PRN; +methylPREDNISolone 125MG 2ML VIAL IV PRN
[2022-07-21 10:25] VITALS: BP 139/81
== END 2022-07-21 10:30 | disposition home or self-care (01) ==
LOC: M INFU 09:20
PROVIDERS: ATTEND Internal Medicine Nephrology
DX: D50.9 Iron deficiency anemia, unspecified (principal); Z88.9 Allergy status to unspecified drugs, medicaments and biological substances
CPT/HCPCS: 96365; J1439

== ENCOUNTER → 2022-08-06 | Outpatient (CLI) | payer OTHER ==
[~2022-08-06] MED LIST changes: -ALBUTEROL SULFATE 2.5MG/0.5ML INH NEB SOLN INH PRN; -EPINEPHrine INJ 1 MG/ML 1ML AMP IM PRN; -FERRIC CARBOXYMALTOSE INJ 750 MG in NS 250 ML (>50kg) IV ONE; -NS 1,000 ML IV SCH; -diphenhydrAMINE 50MG/ML VIAL IV PRN; -methylPREDNISolone 125MG 2ML VIAL IV PRN
== END ==
LOC: M SOG 07:58
PROVIDERS: ATTEND Orthopaedic Surgery
DX: M25.512 Pain in left shoulder (principal)

== ENCOUNTER 2022-08-08 14:44 | Inpatient (IN) | payer MEDICARE, OTHER ==
[~2022-08-08] VITALS: Ht 172.7 cm; Wt 104.5 kg
[2022-08-08] MEDS ORDERED: ACETAMINOPHEN 325 MG TAB PO ONE (15:10)
[2022-08-08 15:51] LABS: BASO % 0.5 % (0.0-1.0); EOS # 0.1 10^3/uL (0.0-0.5); EOS % 0.9 % (0.0-3.0); HEMATOCRIT 33.4 % (42.0-52.0); HEMOGLOBIN 10.6 g/dl (13.5-17.5); LYMPH # 1.3 10^3/uL (1.5-5.0); LYMPH % 15.6 % (24.0-44.0); MEAN CORPUSCULAR HEMOGLOBIN 30.7 pg (27.0-33.0); MEAN CORPUSCULAR HGB CONC 31.7 g/dl (32.0-36.5); MEAN CORPUSCULAR VOLUME 96.8 fl (80.0-96.0); MONO # 1.1 10^3/uL (0.0-0.8); MONO % 12.9 % (2.0-8.0); NEUTROPHILS # 5.7 10^3/uL (1.5-8.5); NEUTROPHILS % 69.6 % (36.0-66.0); PLATELET COUNT, AUTOMATED 195 10^3/uL (150-450); RED BLOOD COUNT 3.45 10^6/uL (4.30-6.10); WHITE BLOOD COUNT 8.1 10^3/uL (4.0-10.0)
[2022-08-08 16:16] LABS: ALKALINE PHOSPHATASE 112 U/L (46-116); ALT/SGPT 20 U/L (7.0-40); AST/SGOT 20 U/L (<34); BILIRUBIN,DIRECT 0.1 MG/DL (<0.4); BILIRUBIN,TOTAL 0.5 MG/DL (0.3-1.2); BLOOD UREA NITROGEN 30 MG/DL (9-23); CALCIUM LEVEL 8.2 MG/DL (8.3-10.6); CARBON DIOXIDE LEVEL 28 MMOL/L (20-31); CHLORIDE LEVEL 107 MMOL/L (98-107); CREATININE FOR GFR 1.55 MG/DL (0.70-1.30); GLOMERULAR FILTRATION RATE 46.6 (>42); GLUCOSE, FASTING 116 MG/DL (74-106); POTASSIUM SERUM 3.9 MMOL/L (3.5-5.1); SODIUM LEVEL 141 MMOL/L (136-145)
[2022-08-08 16:18] LABS: THYROXINE (T4) 7.3 UG/DL (4.5-10.9)
[2022-08-08 16:19] LABS: THYROID STIMULATING HORMONE 1.792 uIU/ML (0.55-4.78)
[2022-08-08 16:45] LABS: RSV AMPLIFICATION NEGATIVE (NEGATIVE)
[2022-08-08] MEDS ORDERED: cefTRIAXone SOD 2 GM in D5W MINI-BAG PLUS 50 ML IV ONE (17:00)
[2022-08-08] MEDS ORDERED: LR 1,000 ML IV SCH (18:25)
[2022-08-08] MEDS ORDERED: IPRATROPIUM 0.5MG/ALBUTEROL 2.5MG INH SOL UD 3ML (DUONEB) NEB PRN (18:35)
[2022-08-08 18:52] LABS: VITAMIN B12 LEVEL 768 PG/ML (211-911)
[2022-08-08 18:59] LABS: CPK CREATINE PHOSPHOKINASE 101 U/L (46-171); FOLATE > 24.00 NG/ML (>5.4)
[2022-08-08] MEDS: IPRATROPIUM 0.5MG/ALBUTEROL 2.5MG INH SOL UD 3ML (DUONEB) NEB SCH (20:01)
[2022-08-08] MEDS ORDERED: FAMO1TAB11 PO (20:24)
[2022-08-08] MEDS ORDERED: HYDR-4468 PO ×2 (20:24)
[2022-08-08] MEDS ORDERED: HOME MED LIST COMPLETE! XX SCH (20:25)
[2022-08-08 20:35] VITALS: BP 100/60
[2022-08-08] MEDS ORDERED: FAMOTIDINE 20 MG TAB PO SCH (21:00)
[2022-08-08] MEDS ORDERED: ALBUTEROL 90 MCG/ACT 8GM HFA INHALER INH PRN (21:10)
[2022-08-08] MEDS ORDERED: ALBUTEROL SULFATE 2.5MG/0.5ML INH NEB SOLN INH PRN (21:10)
[2022-08-08] MEDS ORDERED: ACETAMINOPHEN 500 MG TAB PO PRN (21:15)
[2022-08-08] MEDS: OMEPRAZOLE 20MG CAP PO SCH (22:28)
[2022-08-08] MEDS: busPIRone 10 MG TAB PO SCH (22:29)
[2022-08-08] MEDS: ATORVASTATIN 20 MG TAB PO SCH (22:29)
[2022-08-08] MEDS: APIXABAN 5 MG TAB (ELIQUIS) PO SCH (22:30)
[2022-08-08] MEDS: TAMSULOSIN 0.4 MG CAP PO SCH (22:30)
[2022-08-08] MEDS: PIPERACILLIN/TAZOBACTAM SOD 4.5 GM in D5W MINI-BAG PLUS 50 ML IV SCH (22:30)
[2022-08-08] MEDS: ANEXSIA, NORCO 7.5MG/325MG TABLET(HYDROCODONE/APAP) PO PRN (23:36)
[2022-08-08] MEDS: HYDROCORTISONE 10 MG TAB PO SCH (23:36)
[2022-08-09] MEDS: IPRATROPIUM 0.5MG/ALBUTEROL 2.5MG INH SOL UD 3ML (DUONEB) NEB SCH ×2 (01:13→07:34)
[2022-08-09 01:14] VITALS: O2SAT 94
[2022-08-09] MEDS: PIPERACILLIN/TAZOBACTAM SOD 4.5 GM in D5W MINI-BAG PLUS 50 ML IV SCH ×2 (03:37→08:53)
[2022-08-09 05:33] LABS: HEMATOCRIT 27.8 % (42.0-52.0); HEMOGLOBIN 8.7 g/dl (13.5-17.5); MEAN CORPUSCULAR HEMOGLOBIN 30.3 pg (27.0-33.0); MEAN CORPUSCULAR HGB CONC 31.3 g/dl (32.0-36.5); MEAN CORPUSCULAR VOLUME 96.9 fl (80.0-96.0); PLATELET COUNT, AUTOMATED 151 10^3/uL (150-450); RED BLOOD COUNT 2.87 10^6/uL (4.30-6.10)
[2022-08-09 05:44] VITALS: BP 109/61
[2022-08-09 05:59] LABS: CALCIUM LEVEL 7.4 MG/DL (8.3-10.6); CREATININE FOR GFR 1.29 MG/DL (0.70-1.30); GLOMERULAR FILTRATION RATE 57.6 (>42); POTASSIUM SERUM 3.3 MMOL/L (3.5-5.1)
[2022-08-09] MEDS ORDERED: ACETAMINOPHEN TAB 650MG DOSE (2X325MG) PO PRN (08:40)
[2022-08-09] MEDS: FEBUXOSTAT 40 MG TABLET (ULORIC) PO SCH (08:55)
[2022-08-09] MEDS: FLUoxetine 20MG CAP PO SCH (08:55)
[2022-08-09] MEDS: HYDROCORTISONE 10 MG TAB PO SCH ×2 (08:55→21:40)
[2022-08-09] MEDS: ANEXSIA, NORCO 7.5MG/325MG TABLET(HYDROCODONE/APAP) PO PRN (08:55)
[2022-08-09] MEDS: OMEPRAZOLE 20MG CAP PO SCH ×2 (08:56→20:16)
[2022-08-09] MEDS: APIXABAN 5 MG TAB (ELIQUIS) PO SCH ×2 (08:56→20:17)
[2022-08-09] MEDS: FERROUS GLUCONATE 324 MG TAB PO SCH ×2 (08:56→17:30)
[2022-08-09] MEDS ORDERED: busPIRone 10 MG TAB PO SCH (09:00)
[2022-08-09] MEDS ORDERED: POTASSIUM CHLORIDE 10MEQ SR TABLET PO ONE (09:00)
[2022-08-09] MEDS: METOPROLOL SUCC *XL* 25MG TAB (TopROL *XL*) PO SCH (09:07)
[2022-08-09] MEDS: PERCOCET 5MG/325MG TAB PO PRN ×2 (11:48→20:19)
[2022-08-09 14:00] VITALS: BP 110/62
[2022-08-09] MEDS: cefTRIAXone SOD 2 GM in D5W MINI-BAG PLUS 50 ML IV SCH (16:16)
[2022-08-09] MEDS: TAMSULOSIN 0.4 MG CAP PO SCH (20:16)
[2022-08-09] MEDS: busPIRone 10 MG TAB PO SCH (20:16)
[2022-08-09] MEDS: ATORVASTATIN 20 MG TAB PO SCH (20:17)
[2022-08-09 22:00] VITALS: BP 122/68
[2022-08-10] MEDS ORDERED: zolPIDEM TARTRATE 5 MG TAB PO PRN (00:20)
[2022-08-10 05:26] VITALS: BP 123/69
[2022-08-10] MEDS: PERCOCET 5MG/325MG TAB PO PRN (05:27)
[2022-08-10 05:47] LABS: HEMATOCRIT 27.2 % (42.0-52.0); HEMOGLOBIN 8.5 g/dl (13.5-17.5); MEAN CORPUSCULAR HEMOGLOBIN 30.6 pg (27.0-33.0); MEAN CORPUSCULAR HGB CONC 31.3 g/dl (32.0-36.5); MEAN CORPUSCULAR VOLUME 97.8 fl (80.0-96.0); PLATELET COUNT, AUTOMATED 156 10^3/uL (150-450); RED BLOOD COUNT 2.78 10^6/uL (4.30-6.10); WHITE BLOOD COUNT 6.1 10^3/uL (4.0-10.0)
[2022-08-10 06:45] LABS: BLOOD UREA NITROGEN 23 MG/DL (9-23); CALCIUM LEVEL 7.5 MG/DL (8.3-10.6); CARBON DIOXIDE LEVEL 25 MMOL/L (20-31); CHLORIDE LEVEL 109 MMOL/L (98-107); CREATININE FOR GFR 1.09 MG/DL (0.70-1.30); GLOMERULAR FILTRATION RATE > 60.0 (>42); GLUCOSE, FASTING 123 MG/DL (74-106); SODIUM LEVEL 141 MMOL/L (136-145)
[2022-08-10] MEDS ORDERED: busPIRone 5 MG TAB PO SCH (09:00)
[2022-08-10] MEDS: APIXABAN 5 MG TAB (ELIQUIS) PO SCH (09:19)
[2022-08-10] MEDS: OMEPRAZOLE 20MG CAP PO SCH (09:19)
[2022-08-10] MEDS: FEBUXOSTAT 40 MG TABLET (ULORIC) PO SCH (09:19)
[2022-08-10] MEDS: FERROUS GLUCONATE 324 MG TAB PO SCH (09:19)
[2022-08-10] MEDS: FLUoxetine 20MG CAP PO SCH (09:20)
[2022-08-10 09:25] VITALS: BP 123/69
[2022-08-10] MEDS: METOPROLOL SUCC *XL* 25MG TAB (TopROL *XL*) PO SCH (09:25)
[2022-08-10] MEDS ORDERED: CEFD300CAP PO (09:39)
[2022-08-10] MEDS ORDERED: PROBCAP14 PO (09:39)
[2022-08-10] MEDS ORDERED: LEVO750T14 PO (10:40)
[2022-08-10] MEDS: HYDROCORTISONE 10 MG TAB PO SCH (10:55)
[2022-08-10] MEDS: cefTRIAXone SOD 2 GM in D5W MINI-BAG PLUS 50 ML IV SCH (13:06)
== END 2022-08-10 15:19 | disposition home health service (06) | DRG 682 ==
LOC: EDBD 14:44 → M ED 14:44 → M ED INP 17:33 → M MSPAV 20:34
PROVIDERS: ADMIT Internal Medicine; ATTEND Internal Medicine
DX: N17.9 Acute kidney failure, unspecified (principal); G93.41 Metabolic encephalopathy; I50.32 Chronic diastolic (congestive) heart failure; N39.0 Urinary tract infection, site not specified; J96.11 Chronic respiratory failure with hypoxia; E27.40 Unspecified adrenocortical insufficiency; Z99.81 Dependence on supplemental oxygen; I48.91 Unspecified atrial fibrillation; Z79.01 Long term (current) use of anticoagulants; E78.5 Hyperlipidemia, unspecified; N40.0 Benign prostatic hyperplasia without lower urinary tract symptoms; E55.9 Vitamin D deficiency, unspecified; M10.9 Gout, unspecified; D50.9 Iron deficiency anemia, unspecified; K21.9 Gastro-esophageal reflux disease without esophagitis; G89.29 Other chronic pain; Z88.8 Allergy status to other drugs, medicaments and biological substances; Z79.899 Other long term (current) drug therapy; G47.00 Insomnia, unspecified; R32 Unspecified urinary incontinence; Z87.891 Personal history of nicotine dependence; M32.9 Systemic lupus erythematosus, unspecified; F41.9 Anxiety disorder, unspecified; F32.A Depression, unspecified; S42.002A Fracture of unspecified part of left clavicle, initial encounter for closed fracture; W05.0XXA Fall from non-moving wheelchair, initial encounter; Y92.009 Unspecified place in unspecified non-institutional (private) residence as the place of occurrence of the external cause; Z96.651 Presence of right artificial knee joint

== ENCOUNTER 2022-08-22 08:08 | Inpatient (IN) | payer OTHER, MEDICARE ==
[~2022-08-22] VITALS: Ht 172.7 cm; Wt 101.4 kg
[~2022-08-22 08:08] MED LIST changes: +LEVO750T14 PO; +PROBCAP14 PO
[2022-08-22] MEDS ORDERED: IPRATROPIUM 0.5MG/ALBUTEROL 2.5MG INH SOL UD 3ML (DUONEB) NEB ONE (09:20)
[2022-08-22 09:21] LABS: BASO % 0.2 % (0.0-1.0); EOS # 0.1 10^3/uL (0.0-0.5); EOS % 0.7 % (0.0-3.0); HEMATOCRIT 30.8 % (42.0-52.0); HEMOGLOBIN 9.3 g/dl (13.5-17.5); LYMPH # 1.1 10^3/uL (1.5-5.0); LYMPH % 9.1 % (24.0-44.0); MEAN CORPUSCULAR HEMOGLOBIN 30.4 pg (27.0-33.0); MEAN CORPUSCULAR HGB CONC 30.2 g/dl (32.0-36.5); MEAN CORPUSCULAR VOLUME 100.7 fl (80.0-96.0); MONO # 1.2 10^3/uL (0.0-0.8); MONO % 9.9 % (2.0-8.0); NEUTROPHILS # 9.4 10^3/uL (1.5-8.5); NEUTROPHILS % 79.6 % (36.0-66.0); PLATELET COUNT, AUTOMATED 261 10^3/uL (150-450); RED BLOOD COUNT 3.06 10^6/uL (4.30-6.10); WHITE BLOOD COUNT 11.8 10^3/uL (4.0-10.0)
[2022-08-22 09:25] LABS: ALBUMIN 2.6 G/DL (3.2-5.2); ALKALINE PHOSPHATASE 114 U/L (46-116); ALT/SGPT 19 U/L (7.0-40); AST/SGOT 41 U/L (<34); BILIRUBIN,DIRECT 0.1 MG/DL (<0.4); BILIRUBIN,TOTAL 0.3 MG/DL (0.3-1.2); BLOOD UREA NITROGEN 35 MG/DL (9-23); CALCIUM LEVEL 8.3 MG/DL (8.3-10.6); CARBON DIOXIDE LEVEL 26 MMOL/L (20-31); CHLORIDE LEVEL 110 MMOL/L (98-107); CREATININE FOR GFR 1.08 MG/DL (0.70-1.30); GLOMERULAR FILTRATION RATE > 60.0 (>42); GLUCOSE, FASTING 96 MG/DL (74-106); SODIUM LEVEL 142 MMOL/L (136-145); TOTAL PROTEIN 5.6 G/DL (5.7-8.2)
[2022-08-22 09:27] LABS: RSV AMPLIFICATION NEGATIVE (NEGATIVE)
[2022-08-22] MEDS ORDERED: FUROSEMIDE 40MG/4ML VIAL IV ONE (09:40)
[2022-08-22] MEDS ORDERED: methylPREDNISolone 125MG 2ML VIAL IV ONE (09:45)
[2022-08-22] MEDS: IPRATROPIUM 0.5MG/ALBUTEROL 2.5MG INH SOL UD 3ML (DUONEB) NEB PRN ×2 (10:23→10:41)
[2022-08-22 10:44] LABS: VENOUS BASE EXCESS -1.8 (-2.0-2.0); VENOUS HCO3 23.6 MEQ/L (23.0-27.0); VENOUS O2 SATURATION 84.8 % (60.0-80.0); VENOUS PARTIAL PRESSURE CO2 42.4 mmHg (38.0-50.0); VENOUS PARTIAL PRESSURE O2 51.8 mmHg (30.0-50.0); VENOUS PH 7.363 UNITS (7.330-7.430); VENOUS STANDARD HCO3 22.8 MEQ/L; VENOUS TOTAL CO2 24.9 MEQ/L (24.0-28.0)
[2022-08-22] MEDS ORDERED: DOXYCYCLINE HYCLATE 100 MG in D5W MINI-BAG PLUS 100 ML IV ONE (12:25)
[2022-08-22] MEDS ORDERED: cefTRIAXone SOD 1 GM in D5W MINI-BAG PLUS 50 ML IV ONE (12:25)
[2022-08-22] MEDS ORDERED: ACETAMINOPHEN 650MG SUPP PR PRN (12:40)
[2022-08-22] MEDS ORDERED: BISACODYL 10MG SUPP PR PRN (12:40)
[2022-08-22] MEDS ORDERED: MORPHINE 2 MG/ML 1ML VIAL IV PRN (12:40)
[2022-08-22] MEDS ORDERED: ONDANSETRON 4MG 2ML VIAL IV PRN (12:40)
[2022-08-22] MEDS ORDERED: MORPHINE 10MG/0.5ML ORAL CONCENTRATE SOLUTION U/D SL PRN (12:40)
[2022-08-22] MEDS ORDERED: LORazepam 1 MG TAB PO PRN (12:40)
[2022-08-22] MEDS ORDERED: ONDANSETRON 4MG ORAL DISINTEGRATING TAB PO PRN (12:40)
[2022-08-22] MEDS ORDERED: LORazepam 2 MG/ML 1ML VIAL IV PRN (12:40)
[2022-08-22] MEDS ORDERED: ATROPINE SULFATE 1% OPHTH SOLN 2ML BTL SL PRN (12:40)
[2022-08-22] MEDS ORDERED: HYOSCYAMINE SULFATE 0.125 MG SUBL TABLET PO PRN (12:40)
[2022-08-22] MEDS ORDERED: ACETAMINOPHEN TAB 650MG DOSE (2X325MG) PO PRN (12:40)
[2022-08-22] MEDS ORDERED: LEVO1TAB40 PO (13:04)
[2022-08-22] MEDS ORDERED: HOME MED LIST COMPLETE! XX SCH (13:20)
[2022-08-22] MEDS ORDERED: LACTIC ACID 12% LOTION 225 GM BTL TOP PRN (13:30)
[2022-08-22] MEDS ORDERED: ALBUTEROL 90 MCG/ACT 8GM HFA INHALER INH PRN (13:30)
[2022-08-22] MEDS ORDERED: NITROGLYCERIN 0.4MG SUBL TABLET SL PRN (13:30)
[2022-08-22] MEDS ORDERED: IPRATROPIUM 0.5MG/ALBUTEROL 2.5MG INH SOL UD 3ML (DUONEB) NEB PRN (13:30)
[2022-08-22] MEDS: IPRATROPIUM 0.5MG/ALBUTEROL 2.5MG INH SOL UD 3ML (DUONEB) NEB SCH ×2 (13:47→19:49)
[2022-08-22 15:24] VITALS: BP 127/77
[2022-08-22] MEDS: METOPROLOL SUCC *XL* 25MG TAB (TopROL *XL*) PO SCH (15:32)
[2022-08-22] MEDS: oxyCODONE 5MG TAB PO PRN ×2 (15:32→19:57)
[2022-08-22] MEDS: TORSEMIDE 10 MG TABLET PO SCH (17:27)
[2022-08-22] MEDS: FERROUS GLUCONATE 324 MG TAB PO SCH (17:27)
[2022-08-22] MEDS: OMEPRAZOLE 20MG CAP PO SCH (21:00)
[2022-08-22] MEDS: HYDROCORTISONE 10 MG TAB PO SCH (21:00)
[2022-08-22] MEDS: TAMSULOSIN 0.4 MG CAP PO SCH (21:01)
[2022-08-22] MEDS: APIXABAN 5 MG TAB (ELIQUIS) PO SCH (21:01)
[2022-08-22] MEDS: DOXYCYCLINE HYCLATE 100MG TABLET PO SCH (21:01)
[2022-08-22] MEDS: busPIRone 10 MG TAB PO SCH (21:01)
[2022-08-22] MEDS: oxyCODONE 10 MG CR TAB PO SCH (21:01)
[2022-08-22] MEDS: ATORVASTATIN 20 MG TAB PO SCH (21:02)
[2022-08-22] MEDS: PREGABALIN 75 MG CAP(LYRICA) PO SCH (21:02)
[2022-08-22] MEDS: zolPIDEM TARTRATE 5 MG TAB PO SCH (21:02)
[2022-08-23] MEDS: oxyCODONE 5MG TAB PO PRN ×4 (00:39→16:52)
[2022-08-23] MEDS: IPRATROPIUM 0.5MG/ALBUTEROL 2.5MG INH SOL UD 3ML (DUONEB) NEB SCH ×4 (02:54→20:00)
[2022-08-23 06:00] VITALS: BP 112/68
[2022-08-23] MEDS: TORSEMIDE 10 MG TABLET PO SCH ×2 (09:16→16:53)
[2022-08-23] MEDS: FLUoxetine 20MG CAP PO SCH (09:16)
[2022-08-23] MEDS: FERROUS GLUCONATE 324 MG TAB PO SCH ×2 (09:17→18:43)
[2022-08-23] MEDS: MULTIVITAMINS/MINERALS THERAP 1 TAB PO SCH (09:17)
[2022-08-23] MEDS: HYDROCORTISONE 10 MG TAB PO SCH ×2 (09:17→21:10)
[2022-08-23] MEDS: APIXABAN 5 MG TAB (ELIQUIS) PO SCH ×2 (09:17→21:10)
[2022-08-23] MEDS: DOXYCYCLINE HYCLATE 100MG TABLET PO SCH ×2 (09:17→21:12)
[2022-08-23] MEDS: busPIRone 5 MG TAB PO SCH (09:18)
[2022-08-23] MEDS: CYANOCOBALAMIN 500 MCG TAB PO SCH (09:18)
[2022-08-23] MEDS: OMEPRAZOLE 20MG CAP PO SCH ×2 (09:19→21:11)
[2022-08-23] MEDS: oxyCODONE 10 MG CR TAB PO SCH ×2 (09:20→21:13)
[2022-08-23] MEDS: PREGABALIN 75 MG CAP(LYRICA) PO SCH ×2 (09:20→21:11)
[2022-08-23] MEDS: VITAMIN D 1,000 INTERNATIONAL UNITS TABLET PO SCH (09:21)
[2022-08-23] MEDS: METOPROLOL SUCC *XL* 25MG TAB (TopROL *XL*) PO SCH (09:27)
[2022-08-23] MEDS: CEFDINIR 300 MG CAP (OMNICEF) PO SCH ×2 (12:25→21:11)
[2022-08-23] MEDS ORDERED: cefTRIAXone SOD 1 GM in D5W MINI-BAG PLUS 50 ML IV SCH (15:00)
[2022-08-23] MEDS: FEBUXOSTAT 40 MG TABLET (ULORIC) PO SCH (16:06)
[2022-08-23] MEDS: TAMSULOSIN 0.4 MG CAP PO SCH (21:11)
[2022-08-23] MEDS: zolPIDEM TARTRATE 5 MG TAB PO SCH (21:11)
[2022-08-23] MEDS: busPIRone 10 MG TAB PO SCH (21:11)
[2022-08-23] MEDS: ATORVASTATIN 20 MG TAB PO SCH (21:12)
[2022-08-24] MEDS: IPRATROPIUM 0.5MG/ALBUTEROL 2.5MG INH SOL UD 3ML (DUONEB) NEB SCH ×4 (00:47→19:07)
[2022-08-24 06:00] VITALS: BP 110/64
[2022-08-24] MEDS: oxyCODONE 5MG TAB PO PRN ×4 (06:42→18:33)
[2022-08-24] MEDS: CYANOCOBALAMIN 500 MCG TAB PO SCH (08:48)
[2022-08-24] MEDS: PREGABALIN 75 MG CAP(LYRICA) PO SCH ×2 (08:49→20:25)
[2022-08-24] MEDS: FEBUXOSTAT 40 MG TABLET (ULORIC) PO SCH (08:49)
[2022-08-24] MEDS: CEFDINIR 300 MG CAP (OMNICEF) PO SCH ×2 (08:49→20:26)
[2022-08-24] MEDS: FLUoxetine 20MG CAP PO SCH (08:49)
[2022-08-24] MEDS: HYDROCORTISONE 10 MG TAB PO SCH ×2 (08:49→20:29)
[2022-08-24] MEDS: DOXYCYCLINE HYCLATE 100MG TABLET PO SCH ×2 (08:49→20:28)
[2022-08-24] MEDS: VITAMIN D 1,000 INTERNATIONAL UNITS TABLET PO SCH (08:51)
[2022-08-24] MEDS: oxyCODONE 10 MG CR TAB PO SCH ×2 (08:51→20:25)
[2022-08-24] MEDS: MULTIVITAMINS/MINERALS THERAP 1 TAB PO SCH (08:52)
[2022-08-24] MEDS: APIXABAN 5 MG TAB (ELIQUIS) PO SCH ×2 (08:52→20:29)
[2022-08-24] MEDS: FERROUS GLUCONATE 324 MG TAB PO SCH ×2 (08:52→17:16)
[2022-08-24] MEDS: OMEPRAZOLE 20MG CAP PO SCH ×2 (08:52→20:27)
[2022-08-24] MEDS: TORSEMIDE 10 MG TABLET PO SCH ×2 (08:53→17:16)
[2022-08-24] MEDS: METOPROLOL SUCC *XL* 25MG TAB (TopROL *XL*) PO SCH (09:00)
[2022-08-24] MEDS: busPIRone 5 MG TAB PO SCH (09:01)
[2022-08-24] MEDS: zolPIDEM TARTRATE 5 MG TAB PO SCH (20:25)
[2022-08-24] MEDS: TAMSULOSIN 0.4 MG CAP PO SCH (20:27)
[2022-08-24] MEDS: ATORVASTATIN 20 MG TAB PO SCH (20:29)
[2022-08-24] MEDS: busPIRone 10 MG TAB PO SCH (20:29)
[2022-08-25] MEDS: oxyCODONE 5MG TAB PO PRN ×4 (01:07→17:27)
[2022-08-25] MEDS: IPRATROPIUM 0.5MG/ALBUTEROL 2.5MG INH SOL UD 3ML (DUONEB) NEB SCH ×4 (01:09→19:05)
[2022-08-25 06:00] VITALS: BP 104/63
[2022-08-25] MEDS: FERROUS GLUCONATE 324 MG TAB PO SCH ×2 (08:55→17:27)
[2022-08-25] MEDS: DOXYCYCLINE HYCLATE 100MG TABLET PO SCH ×2 (08:55→20:42)
[2022-08-25] MEDS: APIXABAN 5 MG TAB (ELIQUIS) PO SCH ×2 (08:55→20:43)
[2022-08-25] MEDS: METOPROLOL SUCC *XL* 25MG TAB (TopROL *XL*) PO SCH (08:55)
[2022-08-25] MEDS: FEBUXOSTAT 40 MG TABLET (ULORIC) PO SCH (08:56)
[2022-08-25] MEDS: VITAMIN D 1,000 INTERNATIONAL UNITS TABLET PO SCH (08:56)
[2022-08-25] MEDS: PREGABALIN 75 MG CAP(LYRICA) PO SCH ×2 (08:56→20:42)
[2022-08-25] MEDS: FLUoxetine 20MG CAP PO SCH (08:56)
[2022-08-25] MEDS: busPIRone 5 MG TAB PO SCH (08:56)
[2022-08-25] MEDS: MULTIVITAMINS/MINERALS THERAP 1 TAB PO SCH (08:56)
[2022-08-25] MEDS: HYDROCORTISONE 10 MG TAB PO SCH ×2 (08:56→20:41)
[2022-08-25] MEDS: CEFDINIR 300 MG CAP (OMNICEF) PO SCH ×2 (08:57→20:41)
[2022-08-25] MEDS: TORSEMIDE 10 MG TABLET PO SCH ×2 (08:57→17:27)
[2022-08-25] MEDS: OMEPRAZOLE 20MG CAP PO SCH ×2 (08:57→20:43)
[2022-08-25] MEDS: CYANOCOBALAMIN 500 MCG TAB PO SCH (09:15)
[2022-08-25] MEDS: oxyCODONE 20MG CR TAB PO SCH ×2 (09:15→20:40)
[2022-08-25] MEDS: busPIRone 10 MG TAB PO SCH (20:42)
[2022-08-25] MEDS: zolPIDEM TARTRATE 5 MG TAB PO SCH (20:42)
[2022-08-25] MEDS: ATORVASTATIN 20 MG TAB PO SCH (20:42)
[2022-08-25] MEDS ORDERED: TAMSULOSIN 0.4 MG CAP PO SCH (21:00)
[2022-08-26] MEDS: oxyCODONE 5MG TAB PO PRN ×2 (00:26→11:40)
[2022-08-26] MEDS: IPRATROPIUM 0.5MG/ALBUTEROL 2.5MG INH SOL UD 3ML (DUONEB) NEB SCH ×2 (01:34→08:15)
[2022-08-26 06:27] VITALS: BP 105/63
[2022-08-26] MEDS: busPIRone 5 MG TAB PO SCH (08:43)
[2022-08-26] MEDS: FEBUXOSTAT 40 MG TABLET (ULORIC) PO SCH (08:43)
[2022-08-26] MEDS: CEFDINIR 300 MG CAP (OMNICEF) PO SCH (08:43)
[2022-08-26] MEDS: DOXYCYCLINE HYCLATE 100MG TABLET PO SCH (08:44)
[2022-08-26] MEDS: APIXABAN 5 MG TAB (ELIQUIS) PO SCH (08:44)
[2022-08-26] MEDS: CYANOCOBALAMIN 500 MCG TAB PO SCH (08:44)
[2022-08-26] MEDS: FLUoxetine 20MG CAP PO SCH (08:44)
[2022-08-26] MEDS: HYDROCORTISONE 10 MG TAB PO SCH (08:44)
[2022-08-26] MEDS: VITAMIN D 1,000 INTERNATIONAL UNITS TABLET PO SCH (08:45)
[2022-08-26] MEDS: OMEPRAZOLE 20MG CAP PO SCH (08:45)
[2022-08-26] MEDS: FERROUS GLUCONATE 324 MG TAB PO SCH (08:45)
[2022-08-26] MEDS: MULTIVITAMINS/MINERALS THERAP 1 TAB PO SCH (08:45)
[2022-08-26 08:46] VITALS: BP 107/64
[2022-08-26] MEDS: METOPROLOL SUCC *XL* 25MG TAB (TopROL *XL*) PO SCH (08:46)
[2022-08-26] MEDS: PREGABALIN 75 MG CAP(LYRICA) PO SCH (08:46)
[2022-08-26] MEDS: oxyCODONE 20MG CR TAB PO SCH (08:46)
[2022-08-26] MEDS: TORSEMIDE 10 MG TABLET PO SCH (08:47)
[2022-08-26] MEDS ORDERED: DOXY100T PO (12:31)
[2022-08-26] MEDS ORDERED: CEFD300CAP PO (12:31)
== END 2022-08-26 15:05 | disposition home or self-care (01) | DRG 196 ==
LOC: EDBD 08:08 → M ED 08:08 → M ED INP 12:36 → ENRESERV 12:49 → M MS5PR 14:20
PROVIDERS: ADMIT Internal Medicine; ATTEND Internal Medicine
DX: J84.9 Interstitial pulmonary disease, unspecified (principal); J15.6 Pneumonia due to other Gram-negative bacteria; I50.32 Chronic diastolic (congestive) heart failure; E27.40 Unspecified adrenocortical insufficiency; J96.11 Chronic respiratory failure with hypoxia; G72.0 Drug-induced myopathy; I48.11 Longstanding persistent atrial fibrillation; E78.5 Hyperlipidemia, unspecified; M10.9 Gout, unspecified; K21.9 Gastro-esophageal reflux disease without esophagitis; Z66 Do not resuscitate; F32.A Depression, unspecified; M25.561 Pain in right knee; M25.562 Pain in left knee; G47.00 Insomnia, unspecified; N40.1 Benign prostatic hyperplasia with lower urinary tract symptoms; L93.0 Discoid lupus erythematosus; D50.9 Iron deficiency anemia, unspecified; E55.9 Vitamin D deficiency, unspecified; F41.9 Anxiety disorder, unspecified; Z88.8 Allergy status to other drugs, medicaments and biological substances; Z79.899 Other long term (current) drug therapy; G89.29 Other chronic pain

== ENCOUNTER → 2022-12-08 | Outpatient (CLI) | payer OTHER ==
[~2022-12-08] MED LIST changes: +ARTIDRO4 OU; -DILT1CAP7 PO; +DILT300C16 PO; +LEVO1TAB40 PO; -POLYOPD OU; +POTA-298 PO; -POTA1TAB14 PO; +SENN-111 PO; -SENN18TA PO
== END ==
LOC: M PLAIMG 12:18
PROVIDERS: ATTEND Internal Medicine Pulmonary Disease
DX: R91.1 Solitary pulmonary nodule (principal); J84.10 Pulmonary fibrosis, unspecified; I70.0 Atherosclerosis of aorta; I25.10 Atherosclerotic heart disease of native coronary artery without angina pectoris

== ENCOUNTER 2023-06-26 05:33 | Emergency (ER) | payer OTHER ==
[~2023-06-26 05:33] MED LIST changes: -AMIT25TA17 PO; +AMIT25TA19 PO; +CEFD1CAP9 PO; -CEFD300C41 PO; -COZA1TAB PO; +LOSA-527 PO
[2023-06-26] MEDS ORDERED: BOOSTRIX VACCINE (TETANUS/DIPHTH/ACEL. PERTUSSIS) 0.5ML SYR IM.IMMUN ONE (10:05)
[2023-06-26 13:33] VITALS: BP 106/57; TEMP 96.7; O2SAT 96
== END 2023-06-26 13:44 | disposition home or self-care (01) ==
LOC: M ED 05:33 → EDBD 05:33 → M ED 13:44
DX: S01.01XA Laceration without foreign body of scalp, initial encounter (principal); W05.0XXA Fall from non-moving wheelchair, initial encounter; I10 Essential (primary) hypertension; E78.5 Hyperlipidemia, unspecified; K21.9 Gastro-esophageal reflux disease without esophagitis; N40.0 Benign prostatic hyperplasia without lower urinary tract symptoms; Z86.79 Personal history of other diseases of the circulatory system; Z79.01 Long term (current) use of anticoagulants; Z79.83 Long term (current) use of bisphosphonates; Z79.52 Long term (current) use of systemic steroids; Z79.899 Other long term (current) drug therapy; Y92.009 Unspecified place in unspecified non-institutional (private) residence as the place of occurrence of the external cause; Y93.89 Activity, other specified; Y99.9 Unspecified external cause status

== ENCOUNTER 2023-07-03 18:47 | Observation (INO) | payer OTHER ==
[~2023-07-03] VITALS: Ht 172.7 cm; Wt 62.5 kg
[~2023-07-03 18:47] MED LIST changes: -ASPI-161 PO; +ASPI-615 PO
[2023-07-03 20:15] LABS: BASO % 0.2 % (0.0-1.0); EOS % 0.4 % (0.0-3.0); HEMATOCRIT 24.4 % (42.0-52.0); HEMOGLOBIN 7.6 g/dl (13.5-17.5); LYMPH % 18.6 % (24.0-44.0); MEAN CORPUSCULAR HEMOGLOBIN 27.7 pg (27.0-33.0); MEAN CORPUSCULAR HGB CONC 31.1 g/dl (32.0-36.5); MEAN CORPUSCULAR VOLUME 89.1 fl (80.0-96.0); MONO # 0.6 10^3/uL (0.0-0.8); MONO % 11.8 % (2.0-8.0); NEUTROPHILS # 3.7 10^3/uL (1.5-8.5); NEUTROPHILS % 68.6 % (36.0-66.0); PLATELET COUNT, AUTOMATED 151 10^3/uL (150-450); RED BLOOD COUNT 2.74 10^6/uL (4.30-6.10); WHITE BLOOD COUNT 5.3 10^3/uL (4.0-10.0)
[2023-07-03 20:48] LABS: CALCIUM LEVEL 8.1 MG/DL (8.3-10.6); CREATININE FOR GFR 1.62 MG/DL (0.70-1.30); GLOMERULAR FILTRATION RATE 44.2 (>42); POTASSIUM SERUM 5.1 MMOL/L (3.5-5.1)
[2023-07-03 20:57] LABS: CK-MB VALUE MASS < 1.0 NG/ML (<3.6); LIPASE 22 U/L (12-53)
[2023-07-03 20:59] LABS: ALBUMIN 2.6 G/DL (3.2-5.2); ALKALINE PHOSPHATASE 82 U/L (46-116); ALT/SGPT 16 U/L (7.0-40); AST/SGOT 28 U/L (<34); BILIRUBIN,DIRECT 0.1 MG/DL (<0.4); BILIRUBIN,TOTAL 0.3 MG/DL (0.3-1.2); TOTAL PROTEIN 5.3 G/DL (5.7-8.2)
[2023-07-03 21:02] LABS: CPK CREATINE PHOSPHOKINASE 32 U/L (46-171); MB/CK RELATIVE INDEX 3.12 (< OR =4)
[2023-07-03] MEDS ORDERED: ISOVUE-370 76% 100ML VIAL As Ordered ONE (22:07)
[2023-07-03 23:38] VITALS: BP 111/58; TEMP 98.1; O2SAT 96
[2023-07-03 23:54] VITALS: BP 133/62; TEMP 98.1; O2SAT 99
[2023-07-04] VITALS (9 sets, daily range): BP systolic 114–134; BP diastolic 55–87; TEMP 96.5–97.1; O2SAT 94–99
[2023-07-04] MEDS ORDERED: BACL10TA2 PO (00:50)
[2023-07-04] MEDS ORDERED: FLUC100T3 PO (00:50)
[2023-07-04] MEDS ORDERED: PREG100C2 PO (00:50)
[2023-07-04] MEDS ORDERED: [UNRECOGNIZED DRUG - CODE] INJ (00:50)
[2023-07-04] MEDS ORDERED: BUTR1DIS TOP (00:50)
[2023-07-04] MEDS ORDERED: PROBCAP2 PO (00:50)
[2023-07-04] MEDS ORDERED: HOME MED LIST COMPLETE! XX SCH (01:00)
[2023-07-04] MEDS ORDERED: ALBUTEROL SULFATE 2.5MG/0.5ML INH NEB SOLN NEB PRN (01:10)
[2023-07-04] MEDS ORDERED: ACETAMINOPHEN TAB 650MG DOSE (2X325MG) PO PRN (01:10)
[2023-07-04] MEDS: NS 1,000 ML IV SCH (01:52)
[2023-07-04] MEDS ORDERED: NITROGLYCERIN 0.4MG SUBL TABLET SL PRN (02:00)
[2023-07-04 02:21] LABS: APPEARANCE, URINE CLEAR (CLEAR); BACTERIA, URINE AUTO NEGATIVE (NEGATIVE); BILIRUBIN, URINE AUTO NEGATIVE (NEGATIVE); BLOOD, URINE BLOOD 1+ (NEGATIVE); COLOR, URINE YELLOW (YELLOW); GLUCOSE, URINE (UA) AUTO NEGATIVE (NEGATIVE); KETONE, URINE AUTO NEGATIVE (NEGATIVE); LEUKOCYTE ESTERASE, URINE AUTO 3+ (NEGATIVE); NITRITE, URINE AUTO NEGATIVE (NEGATIVE); PROTEIN, URINE AUTO NEGATIVE (NEGATIVE); RBC, URINE AUTO 2 /HPF (0-3); SPECIFIC GRAVITY URINE AUTO 1.021 (1.002-1.035); SQUAMOUS EPITHELIAL CELL UR AU 0 /HPF (0-6); UROBILINOGEN, URINE AUTO 0.2 mg/dL (0.0-2.0); WBC, URINE AUTO 39 /HPF (0-3)
[2023-07-04 03:04] LABS: ABG BASE EXCESS -4.9 (-2.0-2.0); ABG HCO3 19.9 MMOL/L (22.0-26.0); ABG O2 SATURATION 92.8 % (95.0-99.0); ABG PARTIAL PRESSURE CO2 35.9 mmHg (35.0-45.0); ABG PARTIAL PRESSURE O2 70.2 mmHg (75.0-100.0); ABG STANDARD HCO3 20.3 MMOL/L. (22.0-26.0); ABG pH (ARTERIAL) 7.362 UNITS (7.350-7.450)
[2023-07-04] MEDS: NS 500 ML IV ONE (03:21)
[2023-07-04] MEDS: TAMSULOSIN 0.4 MG CAP PO SCH (03:21)
[2023-07-04] MEDS: PIPERACILLIN/TAZOBACTAM SOD 3.375 GM in D5W MINI-BAG PLUS 50 ML IV SCH (03:22)
[2023-07-04 03:43] LABS: HEMATOCRIT 24.6 % (42.0-52.0); HEMOGLOBIN 7.9 g/dl (13.5-17.5); MEAN CORPUSCULAR HEMOGLOBIN 29.2 pg (27.0-33.0); MEAN CORPUSCULAR HGB CONC 32.1 g/dl (32.0-36.5); MEAN CORPUSCULAR VOLUME 90.8 fl (80.0-96.0); PLATELET COUNT, AUTOMATED 127 10^3/uL (150-450); RED BLOOD COUNT 2.71 10^6/uL (4.30-6.10); WHITE BLOOD COUNT 5.2 10^3/uL (4.0-10.0)
[2023-07-04 04:07] LABS: PERCENT SATURATION 35.2 % (19.7-50.0)
[2023-07-04 04:10] LABS: FERRITIN 169.8 NG/ML (10.5-307.3)
[2023-07-04 04:13] LABS: CALCIUM LEVEL 6.7 MG/DL (8.3-10.6); CREATININE FOR GFR 1.33 MG/DL (0.70-1.30); GLOMERULAR FILTRATION RATE 55.5 (>42); POTASSIUM SERUM 3.5 MMOL/L (3.5-5.1)
[2023-07-04] MEDS: OMEPRAZOLE 20MG CAP PO SCH (08:06)
[2023-07-04] MEDS: FEBUXOSTAT 40 MG TABLET (ULORIC) PO SCH (08:37)
[2023-07-04] MEDS: FERROUS GLUCONATE 324 MG TAB PO SCH (08:37)
[2023-07-04] MEDS: HYDROCORTISONE 10 MG TAB PO SCH ×2 (08:37→20:22)
[2023-07-04 08:38] LABS: INR 2.58; PROTHROMBIN TIME 26.7 SECONDS (12.5-14.5)
[2023-07-04 11:04] LABS: BASO % 0.4 % (0.0-1.0); EOS # 0.1 10^3/uL (0.0-0.5); EOS % 1.4 % (0.0-3.0); HEMATOCRIT 25.7 % (42.0-52.0); HEMOGLOBIN 8.2 g/dl (13.5-17.5); LYMPH # 0.9 10^3/uL (1.5-5.0); LYMPH % 16.4 % (24.0-44.0); MEAN CORPUSCULAR HEMOGLOBIN 29.1 pg (27.0-33.0); MEAN CORPUSCULAR HGB CONC 31.9 g/dl (32.0-36.5); MEAN CORPUSCULAR VOLUME 91.1 fl (80.0-96.0); MONO # 0.6 10^3/uL (0.0-0.8); MONO % 10.6 % (2.0-8.0); NEUTROPHILS # 3.7 10^3/uL (1.5-8.5); NEUTROPHILS % 70.8 % (36.0-66.0); PLATELET COUNT, AUTOMATED 120 10^3/uL (150-450); RED BLOOD COUNT 2.82 10^6/uL (4.30-6.10); WHITE BLOOD COUNT 5.2 10^3/uL (4.0-10.0)
[2023-07-04] MEDS: MAG SULF 1GM/100ML (MAG RUN) 1 GM in IV 1 EA IV SCH (14:40)
[2023-07-04 15:14] LABS: HEMATOCRIT 30.5 % (42.0-52.0); HEMOGLOBIN 9.8 g/dl (13.5-17.5)
[2023-07-04] MEDS: ATORVASTATIN 20 MG TAB PO SCH (20:22)
[2023-07-05 03:07] VITALS: BP 144/71; TEMP 96.8; O2SAT 94
[2023-07-05 06:47] LABS: BASO % 0.4 % (0.0-1.0); EOS # 0.1 10^3/uL (0.0-0.5); EOS % 1.1 % (0.0-3.0); HEMOGLOBIN 9.3 g/dl (13.5-17.5); LYMPH # 1.1 10^3/uL (1.5-5.0); LYMPH % 19.5 % (24.0-44.0); MEAN CORPUSCULAR HEMOGLOBIN 28.4 pg (27.0-33.0); MEAN CORPUSCULAR HGB CONC 32.1 g/dl (32.0-36.5); MEAN CORPUSCULAR VOLUME 88.7 fl (80.0-96.0); MONO # 0.7 10^3/uL (0.0-0.8); MONO % 11.9 % (2.0-8.0); NEUTROPHILS # 3.7 10^3/uL (1.5-8.5); NEUTROPHILS % 66.7 % (36.0-66.0); PLATELET COUNT, AUTOMATED 158 10^3/uL (150-450); RED BLOOD COUNT 3.27 10^6/uL (4.30-6.10); WHITE BLOOD COUNT 5.6 10^3/uL (4.0-10.0)
[2023-07-05 07:37] LABS: BLOOD UREA NITROGEN 23 MG/DL (9-23); CALCIUM LEVEL 8.1 MG/DL (8.3-10.6); CARBON DIOXIDE LEVEL 25 MMOL/L (20-31); CHLORIDE LEVEL 110 MMOL/L (98-107); CREATININE FOR GFR 1.14 MG/DL (0.70-1.30); GLOMERULAR FILTRATION RATE > 60.0 (>42); GLUCOSE, FASTING 80 MG/DL (74-106); POTASSIUM SERUM 3.7 MMOL/L (3.5-5.1); SODIUM LEVEL 142 MMOL/L (136-145)
[2023-07-05 07:50] VITALS: BP 147/85; TEMP 98.1; O2SAT 95
[2023-07-05] MEDS: FERRIC CARBOXYMALTOSE INJ 750 MG, VIAL MATE ADAPTER 1 EACH in NS 250 ML IV ONE (08:50)
[2023-07-05] MEDS: APIXABAN 5 MG TAB (ELIQUIS) PO SCH (08:56)
[2023-07-05 11:58] VITALS: BP 125/74; TEMP 97.6; O2SAT 97
== END 2023-07-05 13:17 | disposition home health service (06) ==
LOC: M ED 18:47 → M ED INP 23:50 → M PCU 07-04 15:45
PROVIDERS: ADMIT Internal Medicine; ATTEND Internal Medicine
DX: G93.41 Metabolic encephalopathy (principal); T88.7XXA Unspecified adverse effect of drug or medicament, initial encounter; N17.9 Acute kidney failure, unspecified; N18.30 Chronic kidney disease, stage 3 unspecified; D64.9 Anemia, unspecified; I48.91 Unspecified atrial fibrillation; M32.9 Systemic lupus erythematosus, unspecified; E27.40 Unspecified adrenocortical insufficiency; I73.9 Peripheral vascular disease, unspecified; R53.1 Weakness; M10.9 Gout, unspecified; N40.1 Benign prostatic hyperplasia with lower urinary tract symptoms; J84.9 Interstitial pulmonary disease, unspecified; I25.2 Old myocardial infarction; Z98.61 Coronary angioplasty status; F41.9 Anxiety disorder, unspecified; F32.A Depression, unspecified; Z79.01 Long term (current) use of anticoagulants; Z79.899 Other long term (current) drug therapy; Z88.8 Allergy status to other drugs, medicaments and biological substances
CPT/HCPCS: 36415; 36430; 70450; 71045; 71260; 74177; 80048; 80076; 81001; 82270; 82550; 82553; 82728; 82803; 83550; 83690; 83735; 83880; 84484; 85014; 85018; 85025; 85027; 85610; 86850; 86900; 86901; 86920; 87040; 87086; 87486; 87581; 87633; 87798; 93005; 96361; 96365; 96366; 96375; 97161; 97530; 99285; G0378; J1439; J2543; J3475; P9016; Q9967

== ENCOUNTER 2023-07-12 03:16 | Inpatient (IN) | payer MEDICARE, OTHER ==
[2023-07-12] VITALS (72 sets, daily range): BP systolic 68–144; BP diastolic 48–91; TEMP 97.2–98.4; O2SAT 82–99
[~2023-07-12] VITALS: Ht 172.7 cm; Wt 95.6 kg
[~2023-07-12 03:16] MED LIST changes: +ASPI-161 PO; -ASPI-615 PO; +BUTR1DIS TOP; +FLUC100T3 PO; +PREG100C2 PO; +PROBCAP2 PO; +[UNRECOGNIZED DRUG - CODE] INJ
[2023-07-12] MEDS ORDERED: methylPREDNISolone 125MG 2ML VIAL IV ONE (03:20)
[2023-07-12] MEDS: IPRATROPIUM 0.5MG/ALBUTEROL 2.5MG INH SOL UD 3ML (DUONEB) NEB PRN ×3 (03:34→04:02)
[2023-07-12 03:46] LABS: BASO % 0.2 % (0.0-1.0); EOS % 0.1 % (0.0-3.0); HEMATOCRIT 34.7 % (42.0-52.0); LYMPH % 17.1 % (24.0-44.0); MEAN CORPUSCULAR HEMOGLOBIN 28.9 pg (27.0-33.0); MEAN CORPUSCULAR HGB CONC 31.7 g/dl (32.0-36.5); MEAN CORPUSCULAR VOLUME 91.3 fl (80.0-96.0); MONO # 1.4 10^3/uL (0.0-0.8); MONO % 12.3 % (2.0-8.0); NEUTROPHILS # 8.2 10^3/uL (1.5-8.5); PLATELET COUNT, AUTOMATED 239 10^3/uL (150-450); WHITE BLOOD COUNT 11.7 10^3/uL (4.0-10.0)
[2023-07-12 03:58] LABS: ABG BASE EXCESS -8.2 (-2.0-2.0); ABG HCO3 16.8 MMOL/L (22.0-26.0); ABG O2 SATURATION 99.4 % (95.0-99.0); ABG PARTIAL PRESSURE CO2 32.5 mmHg (35.0-45.0); ABG PARTIAL PRESSURE O2 230.4 mmHg (75.0-100.0); ABG STANDARD HCO3 17.9 MMOL/L. (22.0-26.0); ABG TOTAL CO2 17.7 MMOL/L (23.0-31.0)
[2023-07-12] MEDS ORDERED: PIPERACILLIN/TAZOBACTAM SOD 4.5 GM in D5W MINI-BAG PLUS 50 ML IV ONE (04:15)
[2023-07-12] MEDS ORDERED: NS 2,810 ML in IV 1 EA IV ONE (04:15)
[2023-07-12] MEDS ORDERED: ISOVUE-370 76% 100ML VIAL As Ordered ONE ×2 (05:09→05:51)
[2023-07-12 05:35] LABS: CK-MB VALUE MASS 2.3 NG/ML (<3.6); LIPASE 13 U/L (12-53)
[2023-07-12 05:37] LABS: ALBUMIN 2.5 G/DL (3.2-5.2); ALKALINE PHOSPHATASE 89 U/L (46-116); ALT/SGPT 20 U/L (7.0-40); AST/SGOT 32 U/L (<34); BILIRUBIN,DIRECT 0.3 MG/DL (<0.4); BILIRUBIN,TOTAL 0.7 MG/DL (0.3-1.2); BLOOD UREA NITROGEN 14 MG/DL (9-23); CALCIUM LEVEL 8.2 MG/DL (8.3-10.6); CARBON DIOXIDE LEVEL 23 MMOL/L (20-31); CHLORIDE LEVEL 112 MMOL/L (98-107); CPK CREATINE PHOSPHOKINASE 119 U/L (46-171); CREATININE FOR GFR 1.18 MG/DL (0.70-1.30); GLOMERULAR FILTRATION RATE > 60.0 (>42); GLUCOSE, FASTING 173 MG/DL (74-106); MB/CK RELATIVE INDEX 1.93 (< OR =4); POTASSIUM SERUM 3.4 MMOL/L (3.5-5.1); SODIUM LEVEL 146 MMOL/L (136-145); TOTAL PROTEIN 5.5 G/DL (5.7-8.2)
[2023-07-12 07:08] LABS: CK-MB VALUE MASS 1.7 NG/ML (<3.6)
[2023-07-12 07:10] LABS: MB/CK RELATIVE INDEX 1.7 (< OR =4)
[2023-07-12 08:29] LABS: ABG HCO3 17.4 MMOL/L (22.0-26.0); ABG O2 SATURATION 95.1 % (95.0-99.0); ABG PARTIAL PRESSURE CO2 27.9 mmHg (35.0-45.0); ABG PARTIAL PRESSURE O2 78.6 mmHg (75.0-100.0); ABG STANDARD HCO3 19.5 MMOL/L. (22.0-26.0); ABG TOTAL CO2 18.3 MMOL/L (23.0-31.0); ABG pH (ARTERIAL) 7.413 UNITS (7.350-7.450)
[2023-07-12] MEDS ORDERED: MAGNESIUM SULFATE IN WATER 2GM 50ML BAG (40MG/ML) (FOR ER ONLY) As Ordered ONE (09:49)
[2023-07-12] MEDS: FUROSEMIDE 40MG/4ML VIAL IV SCH ×3 (09:51→22:10)
[2023-07-12] MEDS ORDERED: FUROSEMIDE 100MG/10ML VIAL IV ONE (10:00)
[2023-07-12] MEDS ORDERED: MAG SULF 1GM/100ML (MAG RUN) 1 GM in IV 1 EA IV ONE (10:00)
[2023-07-12] MEDS ORDERED: MED REC IN PROGRESS XX SCH (10:35)
[2023-07-12] MEDS ORDERED: MED REC CURRENTLY UNOBTAINABLE XX SCH (11:25)
[2023-07-12] MEDS ORDERED: EPINEPHrine 1MG/10ML SYRINGE 1.5IN ONE (12:11)
[2023-07-12] MEDS ORDERED: SODIUM BICARBONATE 8.4% INJ 50ML SYRINGE ONE (12:11)
[2023-07-12] MEDS ORDERED: ATROPINE SULF 1MG/10ML SYRINGE ONE (12:11)
[2023-07-12] MEDS ORDERED: FENTANYL DRIP LOCK BOX KEY 1 EACH XX PRN (12:40)
[2023-07-12] MEDS: fentaNYL CITRATE/NaCl 1,000 MCG in IV 1 EA IV SCH (12:53)
[2023-07-12] MEDS ORDERED: MIDAZOLAM INJ 2MG/2ML VIAL As Ordered ONE (13:02)
[2023-07-12] MEDS ORDERED: MIDAZOLAM INJ 2MG/2ML VIAL IV ONE (13:05)
[2023-07-12] MEDS ORDERED: MIDAZOLAM 100MG/100ML-0.9%NACL 100 MG in IV 1 EA IV SCH (13:10)
[2023-07-12 15:08] LABS: BASO % 0.1 % (0.0-1.0); HEMATOCRIT 31.8 % (42.0-52.0); HEMOGLOBIN 10.1 g/dl (13.5-17.5); LYMPH # 0.3 10^3/uL (1.5-5.0); LYMPH % 1.8 % (24.0-44.0); MEAN CORPUSCULAR HEMOGLOBIN 29.3 pg (27.0-33.0); MEAN CORPUSCULAR HGB CONC 31.8 g/dl (32.0-36.5); MEAN CORPUSCULAR VOLUME 92.2 fl (80.0-96.0); MONO # 0.4 10^3/uL (0.0-0.8); MONO % 2.7 % (2.0-8.0); NEUTROPHILS % 94.5 % (36.0-66.0); PLATELET COUNT, AUTOMATED 199 10^3/uL (150-450); RED BLOOD COUNT 3.45 10^6/uL (4.30-6.10); WHITE BLOOD COUNT 13.7 10^3/uL (4.0-10.0)
[2023-07-12 15:35] LABS: ALBUMIN 2.1 G/DL (3.2-5.2); BILIRUBIN,TOTAL 0.9 MG/DL (0.3-1.2); CALCIUM LEVEL 7.5 MG/DL (8.3-10.6); CREATININE FOR GFR 1.27 MG/DL (0.70-1.30); GLOMERULAR FILTRATION RATE 58.5 (>42); MAGNESIUM LEVEL 2.1 MG/DL (1.8-2.4); PHOSPHORUS LEVEL 4.6 MG/DL (2.4-5.1); POTASSIUM SERUM 3.8 MMOL/L (3.5-5.1); TOTAL PROTEIN 4.9 G/DL (5.7-8.2)
[2023-07-12] MEDS: HYDROCORTISONE 100MG/2ML VIAL IV SCH ×2 (16:09→20:13)
[2023-07-12] MEDS: NOREPINEPHRINE 4MG IN D5 250ML 4 MG in IV 1 EA IV SCH ×6 (16:09→23:53)
[2023-07-12] MEDS: METOPROLOL 5 MG/5 ML VIAL IV SCH (17:00)
[2023-07-12] MEDS ORDERED: NITROGLYCERIN IN D5W 25MG/250ML (100MCG/ML) As Ordered ONE (17:16)
[2023-07-12] MEDS: PANTOPRAZOLE 40MG VIAL IV SCH (17:29)
[2023-07-12 18:16] LABS: VENOUS BASE EXCESS -6.8 (-2.0-2.0); VENOUS HCO3 20.5 MMOL/L (23.0-27.0); VENOUS O2 SATURATION 90.2 % (60.0-80.0); VENOUS STANDARD HCO3 18.8 MMOL/L
[2023-07-12] MEDS: VASOPRESSIN INJ 20 UNITS in NS 499 ML IV SCH (20:00)
[2023-07-12] MEDS ORDERED: ENOXAPARIN 40MG/0.4ML SYRINGE (J1650 PER 10MG) SC SCH (21:00)
[2023-07-13] VITALS (80 sets, daily range): BP systolic 89–125; BP diastolic 60–87; TEMP 96.7–97.8; O2SAT 91–98
[2023-07-13 01:29] LABS: ALBUMIN 2.2 G/DL (3.2-5.2); BILIRUBIN,TOTAL 0.8 MG/DL (0.3-1.2); CALCIUM LEVEL 7.6 MG/DL (8.3-10.6); CREATININE FOR GFR 1.73 MG/DL (0.70-1.30); MAGNESIUM LEVEL 2.1 MG/DL (1.8-2.4); POTASSIUM SERUM 3.7 MMOL/L (3.5-5.1)
[2023-07-13] MEDS: METOPROLOL 5 MG/5 ML VIAL IV SCH ×2 (04:08→16:08)
[2023-07-13] MEDS: VASOPRESSIN INJ 20 UNITS in NS 499 ML IV SCH (04:08)
[2023-07-13] MEDS: HYDROCORTISONE 100MG/2ML VIAL IV SCH ×2 (04:11→11:56)
[2023-07-13] MEDS: fentaNYL CITRATE/NaCl 1,000 MCG in IV 1 EA IV SCH (05:04)
[2023-07-13 05:28] LABS: ALBUMIN 2.3 G/DL (3.2-5.2); BILIRUBIN,TOTAL 0.7 MG/DL (0.3-1.2); CALCIUM LEVEL 7.5 MG/DL (8.3-10.6); CREATININE FOR GFR 1.91 MG/DL (0.70-1.30); FREE T4 0.95 NG/DL (0.89-1.76); GLOMERULAR FILTRATION RATE 36.6 (>42); MAGNESIUM LEVEL 2.1 MG/DL (1.8-2.4); PHOSPHORUS LEVEL 5.4 MG/DL (2.4-5.1); POTASSIUM SERUM 3.7 MMOL/L (3.5-5.1); THYROID STIMULATING HORMONE 1.865 uIU/ML (0.55-4.78); TOTAL PROTEIN 5.3 G/DL (5.7-8.2)
[2023-07-13] MEDS: NOREPINEPHRINE 4MG IN D5 250ML 4 MG in IV 1 EA IV SCH ×6 (06:05→21:45)
[2023-07-13] MEDS: PANTOPRAZOLE 40MG VIAL IV SCH (08:55)
[2023-07-13] MEDS ORDERED: LR 1,000 ML IV SCH ×2 (09:50→17:05)
[2023-07-13 14:08] LABS: VENOUS BASE EXCESS -4.6 (-2.0-2.0); VENOUS HCO3 22.2 MMOL/L (23.0-27.0); VENOUS O2 SATURATION 81.7 % (60.0-80.0); VENOUS PARTIAL PRESSURE O2 52.5 mmHg (30.0-50.0); VENOUS PH 7.282 UNITS (7.330-7.430); VENOUS STANDARD HCO3 20.4 MMOL/L; VENOUS TOTAL CO2 23.6 MMOL/L (24.0-28.0)
[2023-07-13 15:17] LABS: ALBUMIN 2.1 G/DL (3.2-5.2); BILIRUBIN,TOTAL 0.6 MG/DL (0.3-1.2); CALCIUM LEVEL 7.4 MG/DL (8.3-10.6); CREATININE FOR GFR 2.33 MG/DL (0.70-1.30); GLOMERULAR FILTRATION RATE 29.1 (>42); POTASSIUM SERUM 3.5 MMOL/L (3.5-5.1); TOTAL PROTEIN 4.6 G/DL (5.7-8.2)
[2023-07-13] MEDS ORDERED: dexmedeTOMidine 200 MCG in IV 1 EA IV SCH (17:05)
[2023-07-13 19:39] LABS: ALBUMIN 2.1 G/DL (3.2-5.2); BILIRUBIN,DIRECT 0.4 MG/DL (<0.4); BILIRUBIN,TOTAL 0.6 MG/DL (0.3-1.2); TOTAL PROTEIN 4.9 G/DL (5.7-8.2)
[2023-07-13] MEDS: HEPARIN SOD (PORCINE) 5000UNITS/ML 1ML VIAL/SYRINGE SQ SCH (20:46)
[2023-07-14] VITALS (43 sets, daily range): BP systolic 88–126; BP diastolic 59–84; TEMP 97.1–98.1; O2SAT 92–99
[2023-07-14] MEDS: HYDROCORTISONE 100MG/2ML VIAL IV SCH ×2 (00:04→11:29)
[2023-07-14] MEDS: D5W/0.45% SODIUM CHLORIDE 1,000 ML IV SCH ×2 (02:04→11:48)
[2023-07-14] MEDS: NOREPINEPHRINE 4MG IN D5 250ML 4 MG in IV 1 EA IV SCH ×6 (04:31→18:10)
[2023-07-14] MEDS: fentaNYL CITRATE 1,000 MCG in NS 80 ML IV SCH (04:58)
[2023-07-14] MEDS: METOPROLOL 5 MG/5 ML VIAL IV SCH ×2 (05:07→16:13)
[2023-07-14 05:23] LABS: BILIRUBIN,TOTAL 0.6 MG/DL (0.3-1.2); CALCIUM LEVEL 7.2 MG/DL (8.3-10.6); CREATININE FOR GFR 2.52 MG/DL (0.70-1.30); GLOMERULAR FILTRATION RATE 26.5 (>42); PHOSPHORUS LEVEL 4.2 MG/DL (2.4-5.1); POTASSIUM SERUM 3.3 MMOL/L (3.5-5.1); TOTAL PROTEIN 4.5 G/DL (5.7-8.2)
[2023-07-14] MEDS ORDERED: KCL 20MEQ IN 100ML SWI (KRUN) 20 MEQ in IV 1 EA IV ONE ×2 (06:00)
[2023-07-14] MEDS ORDERED: RISATAB3 PO (06:55)
[2023-07-14] MEDS ORDERED: MULT-40 PO (06:55)
[2023-07-14] MEDS ORDERED: HOME MED LIST COMPLETE! XX SCH (07:00)
[2023-07-14] MEDS: PANTOPRAZOLE 40MG VIAL IV SCH (09:43)
[2023-07-14] MEDS: HEPARIN SOD (PORCINE) 5000UNITS/ML 1ML VIAL/SYRINGE SQ SCH ×2 (09:43→20:55)
[2023-07-14] MEDS ORDERED: CHLOROTHIAZIDE 500MG VIAL IV ONE (09:45)
[2023-07-14] MEDS ORDERED: FUROSEMIDE 100MG/10ML VIAL IV ONE (09:45)
[2023-07-14] MEDS ORDERED: PROPOFOL 1,000 MG/100 ML VIAL As Ordered ONE (11:39)
[2023-07-14 16:50] LABS: ALBUMIN 2.1 G/DL (3.2-5.2); CALCIUM LEVEL 7.2 MG/DL (8.3-10.6); CREATININE FOR GFR 2.71 MG/DL (0.70-1.30); GLOMERULAR FILTRATION RATE 24.4 (>42); PHOSPHORUS LEVEL 4.4 MG/DL (2.4-5.1); POTASSIUM SERUM 3.6 MMOL/L (3.5-5.1)
[2023-07-15] VITALS (26 sets, daily range): BP systolic 89–130; BP diastolic 60–85; TEMP 97.1–97.6; O2SAT 90–95
[2023-07-15] MEDS: NOREPINEPHRINE 4MG IN D5 250ML 4 MG in IV 1 EA IV SCH ×4 (00:50→07:15)
[2023-07-15 04:37] LABS: BASO % 0.1 % (0.0-1.0); HEMATOCRIT 32.9 % (42.0-52.0); HEMOGLOBIN 10.5 g/dl (13.5-17.5); LYMPH # 1.1 10^3/uL (1.5-5.0); LYMPH % 6.9 % (24.0-44.0); MEAN CORPUSCULAR HEMOGLOBIN 29.3 pg (27.0-33.0); MEAN CORPUSCULAR HGB CONC 31.9 g/dl (32.0-36.5); MEAN CORPUSCULAR VOLUME 91.9 fl (80.0-96.0); MONO # 1.1 10^3/uL (0.0-0.8); MONO % 7.3 % (2.0-8.0); NEUTROPHILS # 13.1 10^3/uL (1.5-8.5); NEUTROPHILS % 84.8 % (36.0-66.0); PLATELET COUNT, AUTOMATED 186 10^3/uL (150-450); RED BLOOD COUNT 3.58 10^6/uL (4.30-6.10); WHITE BLOOD COUNT 15.5 10^3/uL (4.0-10.0)
[2023-07-15] MEDS: METOPROLOL 5 MG/5 ML VIAL IV SCH ×2 (05:11→17:26)
[2023-07-15 05:26] LABS: ALBUMIN 2.2 G/DL (3.2-5.2); BILIRUBIN,TOTAL 0.6 MG/DL (0.3-1.2); CALCIUM LEVEL 7.7 MG/DL (8.3-10.6); CREATININE FOR GFR 2.76 MG/DL (0.70-1.30); GLOMERULAR FILTRATION RATE 23.9 (>42); MAGNESIUM LEVEL 2.1 MG/DL (1.8-2.4); TOTAL PROTEIN 4.9 G/DL (5.7-8.2)
[2023-07-15] MEDS: fentaNYL CITRATE 1,000 MCG in NS 80 ML IV SCH (05:55)
[2023-07-15] MEDS: FLUoxetine 20MG CAP PO SCH (08:20)
[2023-07-15] MEDS: HYDROCORTISONE 100MG/2ML VIAL IV SCH ×2 (08:20→19:13)
[2023-07-15] MEDS: PANTOPRAZOLE 40MG VIAL IV SCH (08:20)
[2023-07-15] MEDS: HEPARIN SOD (PORCINE) 5000UNITS/ML 1ML VIAL/SYRINGE SQ SCH ×2 (08:20→20:21)
[2023-07-15] MEDS: FEBUXOSTAT 40 MG TABLET (ULORIC) PO SCH (09:40)
[2023-07-15] MEDS ORDERED: FUROSEMIDE injection 250 MG in D5W 225 ML IV SCH (12:00)
[2023-07-15] MEDS: propofoL 1,000 MG in IV 1 EA IV SCH (19:14)
[2023-07-16] VITALS (23 sets, daily range): BP systolic 95–127; BP diastolic 55–82; TEMP 97.4–98; O2SAT 89–97
[2023-07-16] MEDS: fentaNYL CITRATE 1,000 MCG in NS 80 ML IV SCH ×2 (01:06→21:18)
[2023-07-16] MEDS: METOPROLOL 5 MG/5 ML VIAL IV SCH ×2 (05:10→16:49)
[2023-07-16] MEDS: propofoL 1,000 MG in IV 1 EA IV SCH (05:13)
[2023-07-16 05:16] LABS: BASO % 0.1 % (0.0-1.0); HEMATOCRIT 32.2 % (42.0-52.0); HEMOGLOBIN 10.2 g/dl (13.5-17.5); LYMPH % 9.5 % (24.0-44.0); MEAN CORPUSCULAR HGB CONC 31.7 g/dl (32.0-36.5); MEAN CORPUSCULAR VOLUME 91.5 fl (80.0-96.0); MONO # 0.9 10^3/uL (0.0-0.8); MONO % 8.6 % (2.0-8.0); NEUTROPHILS # 8.2 10^3/uL (1.5-8.5); NEUTROPHILS % 81.2 % (36.0-66.0); PLATELET COUNT, AUTOMATED 175 10^3/uL (150-450); RED BLOOD COUNT 3.52 10^6/uL (4.30-6.10); WHITE BLOOD COUNT 10.1 10^3/uL (4.0-10.0)
[2023-07-16 05:44] LABS: ALBUMIN 2.2 G/DL (3.2-5.2); BILIRUBIN,TOTAL 0.6 MG/DL (0.3-1.2); CALCIUM LEVEL 7.4 MG/DL (8.3-10.6); CREATININE FOR GFR 2.47 MG/DL (0.70-1.30); GLOMERULAR FILTRATION RATE 27.2 (>42); MAGNESIUM LEVEL 1.9 MG/DL (1.8-2.4); PHOSPHORUS LEVEL 3.5 MG/DL (2.4-5.1); POTASSIUM SERUM 3.5 MMOL/L (3.5-5.1); TOTAL PROTEIN 4.8 G/DL (5.7-8.2)
[2023-07-16] MEDS ORDERED: D5W 1,000 ML IV SCH (07:55)
[2023-07-16] MEDS: FEBUXOSTAT 40 MG TABLET (ULORIC) PO SCH (08:37)
[2023-07-16] MEDS: FLUoxetine 20MG CAP PO SCH (08:38)
[2023-07-16] MEDS: HYDROCORTISONE 100MG/2ML VIAL IV SCH ×2 (09:01→20:25)
[2023-07-16] MEDS: HEPARIN SOD (PORCINE) 5000UNITS/ML 1ML VIAL/SYRINGE SQ SCH ×2 (09:01→20:25)
[2023-07-16] MEDS: PANTOPRAZOLE 40MG VIAL IV SCH (09:01)
[2023-07-16] MEDS: KCL 10MEQ/100ML SWI (KRUN) 10 MEQ in IV 1 EA IV SCH ×2 (09:02→09:58)
[2023-07-16] MEDS: KCL 20MEQ IN D5W 1000ML 1,000 ML IV SCH ×2 (09:02→18:46)
[2023-07-17] VITALS (39 sets, daily range): BP systolic 76–133; BP diastolic 49–68; TEMP 97.8–103.4; O2SAT 81–96
[2023-07-17] MEDS: KCL 20MEQ IN D5W 1000ML 1,000 ML IV SCH ×2 (03:06→11:10)
[2023-07-17] MEDS: METOPROLOL 5 MG/5 ML VIAL IV SCH (04:28)
[2023-07-17] MEDS: propofoL 1,000 MG in IV 1 EA IV SCH ×2 (04:37→13:21)
[2023-07-17 05:07] LABS: BILIRUBIN,TOTAL 0.6 MG/DL (0.3-1.2); CALCIUM LEVEL 7.6 MG/DL (8.3-10.6); CREATININE FOR GFR 2.27 MG/DL (0.70-1.30); MAGNESIUM LEVEL 1.6 MG/DL (1.8-2.4); PHOSPHORUS LEVEL 3.8 MG/DL (2.4-5.1); POTASSIUM SERUM 4.3 MMOL/L (3.5-5.1); TOTAL PROTEIN 4.6 G/DL (5.7-8.2)
[2023-07-17] MEDS: HEPARIN SOD (PORCINE) 5000UNITS/ML 1ML VIAL/SYRINGE SQ SCH (08:52)
[2023-07-17] MEDS: HYDROCORTISONE 100MG/2ML VIAL IV SCH (08:52)
[2023-07-17] MEDS: PANTOPRAZOLE 40MG VIAL IV SCH (08:52)
[2023-07-17] MEDS: FEBUXOSTAT 40 MG TABLET (ULORIC) PO SCH (08:53)
[2023-07-17] MEDS: FLUoxetine 20MG CAP PO SCH (08:53)
[2023-07-17 09:46] LABS: ABG BASE EXCESS -0.1 (-2.0-2.0); ABG HCO3 25.9 MMOL/L (22.0-26.0); ABG O2 SATURATION 93.6 % (95.0-99.0); ABG PARTIAL PRESSURE CO2 47.8 mmHg (35.0-45.0); ABG PARTIAL PRESSURE O2 70.1 mmHg (75.0-100.0); ABG STANDARD HCO3 24.3 MMOL/L. (22.0-26.0); ABG TOTAL CO2 27.3 MMOL/L (23.0-31.0); ABG pH (ARTERIAL) 7.351 UNITS (7.350-7.450)
[2023-07-17] MEDS ORDERED: MAG SULF 1GM/100ML (MAG RUN) 1 GM in IV 1 EA IV ONE (11:00)
[2023-07-17] MEDS ORDERED: NOREPINEPHRINE 4MG IN D5 250ML 4 MG in IV 1 EA IV SCH ×2 (12:00)
[2023-07-17] MEDS ORDERED: MORPHINE 2 MG/ML 1ML VIAL IV PRN ×2 (14:30→17:50)
[2023-07-17] MEDS ORDERED: LORazepam 2 MG/ML 1ML VIAL IV PRN ×2 (14:30→17:50)
[2023-07-17] MEDS ORDERED: SCOPOLAMINE 1MG TRANSDERMAL PATCH TOP PRN (14:30)
[2023-07-17] MEDS ORDERED: ATROPINE SULFATE 1% OPHTH SOLN 2ML BTL SL PRN (14:30)
[2023-07-17] MEDS ORDERED: BISACODYL 10MG SUPP PR PRN (17:50)
[2023-07-17] MEDS ORDERED: ONDANSETRON 4MG 2ML VIAL IV PRN (17:50)
[2023-07-17] MEDS ORDERED: FLEET ENEMA PR PRN (17:50)
[2023-07-17] MEDS ORDERED: MORPHINE 10MG/0.5ML ORAL CONCENTRATE SOLUTION U/D SL PRN (17:50)
[2023-07-17] MEDS ORDERED: HYOSCYAMINE SULFATE 0.125 MG SUBL TABLET PO PRN (17:50)
[2023-07-17] MEDS ORDERED: ACETAMINOPHEN TAB 650MG DOSE (2X325MG) PO PRN (17:50)
== END 2023-07-17 21:00 | disposition expired | DRG 207 ==
LOC: EDBD 03:16 → M ED 03:16 → M ED INP 09:05 → ENRESERV 09:17 → M ICU 10:09
PROVIDERS: ADMIT Internal Medicine Pulmonary Disease; ATTEND General Practice
PROC: 5A1955Z Respiratory Ventilation, Greater than 96 Consecutive Hours (ICD-10-PCS; principal; 2023-07-12)
PROC: 0BH17EZ Insertion of Endotracheal Airway into Trachea, Via Natural or Artificial Opening (ICD-10-PCS; 2023-07-12)
PROC: 02HV33Z Insertion of Infusion Device into Superior Vena Cava, Percutaneous Approach (ICD-10-PCS; 2023-07-12)
PROC: B246ZZZ Ultrasonography of Right and Left Heart (ICD-10-PCS; 2023-07-14)
PROC: 0B9M8ZZ Drainage of Bilateral Lungs, Via Natural or Artificial Opening Endoscopic (ICD-10-PCS; 2023-07-17)
DX: J96.21 Acute and chronic respiratory failure with hypoxia (principal); I50.43 Acute on chronic combined systolic (congestive) and diastolic (congestive) heart failure; K72.00 Acute and subacute hepatic failure without coma; G93.41 Metabolic encephalopathy; N17.0 Acute kidney failure with tubular necrosis; E27.40 Unspecified adrenocortical insufficiency; J84.9 Interstitial pulmonary disease, unspecified; E87.0 Hyperosmolality and hypernatremia; I48.20 Chronic atrial fibrillation, unspecified; I24.89 Other forms of acute ischemic heart disease; I47.20 Ventricular tachycardia, unspecified; E87.20 Acidosis, unspecified; R57.0 Cardiogenic shock; Z66 Do not resuscitate; Z99.81 Dependence on supplemental oxygen; E78.5 Hyperlipidemia, unspecified; E55.9 Vitamin D deficiency, unspecified; M10.9 Gout, unspecified; D50.9 Iron deficiency anemia, unspecified; G89.29 Other chronic pain; K21.9 Gastro-esophageal reflux disease without esophagitis; N40.1 Benign prostatic hyperplasia with lower urinary tract symptoms; G47.00 Insomnia, unspecified; I25.10 Atherosclerotic heart disease of native coronary artery without angina pectoris; R26.89 Other abnormalities of gait and mobility; I27.20 Pulmonary hypertension, unspecified; E87.6 Hypokalemia; I46.9 Cardiac arrest, cause unspecified; Z79.01 Long term (current) use of anticoagulants; Z79.899 Other long term (current) drug therapy; Z88.8 Allergy status to other drugs, medicaments and biological substances; Z20.822 Contact with and (suspected) exposure to COVID-19; M32.13 Lung involvement in systemic lupus erythematosus; M32.14 Glomerular disease in systemic lupus erythematosus; I34.0 Nonrheumatic mitral (valve) insufficiency; J40 Bronchitis, not specified as acute or chronic